=== PATIENT | female | born 1935 | race Caucasian/White ===

== ENCOUNTER → 2016-04-22 | Outpatient (CLI) | payer MEDICARE, OTHER ==
[~2016-04-22] MED LIST: ACIPHEX 20MG; ALPR.25T PO; ALPR.5T PO; ALPR0.254 PO; ASCO500T20 PO; ASP325T PO; ASP81TEC; ASP81TEC PO; ATEN25TA PO; ATN50T; ATOR40TA PO; C250T PO; CALC-676 PO; CALC-913 PO; CALCIUM 500+VI1 EACH PO; CETI10TA17 PO; CHOL2000 PO; CHOL200035 PO; CLD600T PO; CLIN300C3 PO; CLOP75TA28 PO; CLOP75TA69 PO; CLPD75T PO; CQ10 PO; DICY10CA12 PO; DILT240C PO; DILT240C96 PO; DOXA2TAB2 PO; DOXY100C2 PO; DXZS2T PO; E400C; FENO67CA PO; FISH OIL 1,2001 EAC1 PO; FISH1CAP15 PO; FOLI400T4 PO; FURO20TA4 PO; GABA600T2 PO; GBPN600T PO; HYDR200T46 PO; LACT1CAP62 PO; LOSA100T7 PO; LOSA1TAB15 PO; LOSA1TAB23 PO; LVST20T; MODA200T PO; MULT-1018 PO; NITR0.4T SL; NTR.4SL; NTR.4SL SL; OMG1KC; OS CAL PO; PANT40TA PO; PNT40TEC PO; POTA10TA36 PO; PRAV10TA PO; PRAV20TA PO; RESV100C PO; RIVA15TA PO; TADA10TA PO; TADA20TA33 PO; TURMERIC 450 MG PO; UBID100C17 PO; VIT B 12; VITA150T PO; VITD PO; ZINC PO; [UNRECOGNIZED DRUG - OTHER] PO
--- OUTSIDE RECORDS SUMMARY | 2016-04-22 12:20 | XMS REPORT | Continuity of Care Document ---
Author Author [facility] Organization [facility] Address Unknown Phone Unavailable Care Team Providers Care It Risk Analyst Name Role Phone EUGENIA DYER DO PCP Insurance Providers Payer Name Policy Number Subscriber Name Relationship Wps Medicare [id number] Mckenzie Li 18 Self / Same As Patient [facility] [id number] Mckenzie Li 18 Self / Same As Patient Advance Directives Directive Response Recorded Date/Time Advance Directives No 11/19/13 7:22am Health Care Power of Soil Fertility Specialist No 11/19/13 7:22am Organ Donor No 11/19/13 7:22am Resuscitation Status Full Code 11/19/13 7:22am Problems Medical Problems Problem Onset Date Status Cellulitis of left lower leg Unknown Active Medications Medication Dose Route Sig Days/Qty Instructions Order Date Discontinued Date Status Atenolol 12/11/07 12/10/10 Discontinued [Aciphex 20MG] 12/11/07 12/10/10 Discontinued Aspirin 12/11/07 12/10/10 Discontinued Gabapentin 600 Mg PO DAILY @ 199912/11/07 Active Calcium/Vitamin D 1 Tab PO DAILY 12/11/07 01/31/13 Discontinued Ascorbic Acid 500 Mg PO TWICE A DAY 12/11/07 01/31/13 Discontinued Fish Oil DAILY 12/11/07 04/07/11 Discontinued Vitamin E 12/11/07 12/10/10 Discontinued Alprazolam 0.25 - 0.5 Mg PO BEDTIME PRN 12/11/07 01/31/13 Discontinued Doxazosin Mesylate 2 Mg PO TWICE A DAY 12/11/07 Active [Vit B 12] DAILY 12/11/07 04/07/11 Discontinued Lovastatin DAILY 12/11/07 04/07/11 Discontinued Nitroglycerin NEEDED 12/11/07 04/07/11 Discontinued Atenolol 25 Mg PO DAILY 12/10/10 02/17/12 Discontinued Clopidogrel Bisulfate 75 Mg PO DAILY 12/10/10 Active Modafinil 200 Mg PO DAILY 12/10/10 02/17/12 Discontinued Pantoprazole Sodium 40 Mg PO DAILY 30 MIN BEFORE BREAKFAST 12/10/10 Active Aspirin 325 Mg PO DAILY 12/10/10 11/19/13 Discontinued Fish Oil/Dha/Epa 1,200 Mg PO DAILY 04/07/11 01/31/13 Discontinued Atorvastatin Calcium 40 Mg PO BEDTIME 04/07/11 01/31/13 Discontinued Folic Acid/Vitamin B Comp W-C 1 Tab PO DAILY 04/07/11 01/31/13 Discontinued Losartan/Hydrochlorothiazide 1 Tab PO DAILY 04/07/11 02/01/13 Discontinued Cholecalciferol 2,000 Unit PO DAILY 04/07/11 02/17/12 Discontinued Resveratrol 100 Mg PO DAILY 04/07/11 02/17/12 Discontinued Calcium Carbonate/Vitamin D3 1 Tab PO DAILY 04/07/11 04/12/11 Discontinued [Cq10] 100 Mg PO DAILY 04/07/11 01/31/13 Discontinued Nitroglycerin 0.4 Mg SL NEEDED FOR CHEST PAIN 04/08/11 01/31/13 Discontinued Cetirizine HCl (Zyrtec) 10 Mg PO DAILY 07/28/11 07/28/11 Discontinued Modafinil 200 Mg PO 07/28/11 07/28/11 Discontinued Cholecalciferol (Vitamin D3) 2,000 Unit PO DAILY 02/17/12 Active Resveratrol 100 Mg PO DAILY 02/17/12 02/17/12 Discontinued Cetirizine HCl (Zyrtec) 10 Mg PO DAILY 02/17/12 Active Diltiazem HCl (Cardizem Cd) 240 Mg PO DAILY@1900 02/17/12 Active Calcium Carbonate/Vitamin D3 1 Tab PO DAILY 01/31/13 Active Ascorbic Acid 500 Mg PO TWICE A DAY 01/31/13 Active Alprazolam 0.5-1 Tab PO BEDTIME TAKES 1/2 TO 1 (0.25MG) TABLET Active Ubidecarenone 100 Mg PO DAILY 01/31/13 Active [place]-3 Fatty Acids/Fish Oil 1,200 Mg PO DAILY 01/31/13 Active Vitamin B Complex & Vit C No.4 150 Mg PO DAILY 01/31/13 Active [Turmeric 450MG] 450 Mg PO DAILY 01/31/13 Active Fenofibrate (Lofibra) 67 Mg PO BEDTIME 01/31/13 Active Nitroglycerin 0 SL NEEDED 01/31/13 Active Doxycycline Hyclate (Vibramycin) 100 Mg PO TWICE A DAY 6 WEEK THERAPY FILLED 01-14-13 01/31/13 10/02/13 Discontinued Hydroxychloroquine Sulfate 200 Mg PO TWICE A DAY 01/31/13 10/02/13 Discontinued Pravastatin Sodium 10 Mg PO BEDTIME 10/02/13 Active Clindamycin HCl 1 Each PO FOUR TIMES DAILY 40 Qty 10/02/13 11/19/13 Discontinued Dicyclomine Hcl 10 Mg PO EVERY 6 HOURS PRN DIARRHEA 11/19/13 Active Aspirin 81 Mg PO DAILY 11/19/13 Active Losartan Potassium 100 Mg PO DAILY 30 Qty 11/19/13 11/19/13 Discontinued Losartan/Hydrochlorothiazide 1 Each PO DAILY 11/19/13 Active Social History Social History Problem Response Recorded Date/Time Alcohol Use Denies Use 10/02/2013 6:51pm Recreational Drug Use No 10/02/2013 6:51pm Recent Foreign Travel No 10/02/2013 6:51pm Recent Infectious Disease Exposure No 10/02/2013 6:51pm Hospitalization with Isolation Denies 10/02/2013 6:51pm Sexually Transmitted Disease No 10/02/2013 6:51pm HIV/AIDS No 10/02/2013 6:51pm Smoking Status Never a Smoker 11/19/2013 7:26am Do you dip or chew tobacco? No 11/19/2013 7:26am Query Response Start Date Stop Date Smoking Status Never a Smoker Hospital Discharge Instructions No hospital discharge instructions. Plan of Care No plan of care. Functional Status Query Response Date Recorded Patient Orientation Person Place Time Situation Normal For Age November 19, 2013 5:52pm Allergies, Adverse Reactions, Alerts Allergen Type Severity Reaction Status Last Updated Clonidine Allergy Unknown Active 12/12/07 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s Name Given Type Date of Influenza Vaccine 01/30/12 Historical Hepatitis A No Historical Hepatitis B No Historical Tetanus Booster (TDap) Unknown Historical pneumococcal polysaccharide PPV23 11/19/13 Administered Vital Signs Acute Vital Signs Vital Response Date/Time Temperature (Fahrenheit) 97.1 degrees F (97.6 - 99.5) Temperature (Calculated Celsius) 36.24588 degrees C (36.4 - 37.5) Temperature Source Tympanic Pulse Rate (adult) 64 bpm (60 - 90) Respiratory Rate 20 bpm (12 - 24) O2 Sat by Pulse Oximetry 94 % (88 - 100) Blood Pressure 138/68 mm Hg Pain Pain Intensity 0 Height (Feet) 5 feet Height (Inches) 1.00 inches Height (Calculated Centimeters) 154.149667 cm Weight (Pounds) 194 pounds Weight (Calculated Grams) 52220.921 gm Weight (Calculated Kilograms) 87.017599 kilograms Calculated BMI 36.65 Results Test Source Date Result Interp. Ref. Range Comments Activated Partial Thromboplast Time November 19, 2013 7:25am 28 SEC N 24- 35 Alanine Aminotransferase (ALT/SGPT) November 19, 2013 7:25am 12 U/L N 0- 55 Albumin November 19, 2013 7:25am 3.8 G/DL N 3.2-4.5 Alkaline Phosphatase November 19, 2013 7:25am 40 U/L N 40-136 Aspartate Amino Transf (AST/SGOT) November 19, 2013 7:25am 16 U/L N 5-34 BUN/Creatinine Ratio November 19, 2013 7:25am 18 - Basophils # (Auto) October 02, 2013 7:35pm 0.1 10^3/uL N 0.0-0.1 Basophils (%) (Auto) October 02, 2013 7:35pm 1 % N 0-10 Blood Urea Nitrogen November 19, 2013 7:25am 15 MG/DL N 7-18 Calcium Level November 19, 2013 7:25am 10.0 MG/DL N 8.5-10.1 Carbon Dioxide Level November 19, 2013 7:25am 29 MMOL/L N 21-32 Chloride Level November 19, 2013 7:25am 101 MMOL/L N 98-107 Cholesterol Level November 19, 2013 7:25am 183 MG/DL N -200 Creatine Kinase MB February 16, 2012 8:20pm 1.1 NG/ML N 0.0-3.6 Creatinine November 19, 2013 7:25am 0.85 MG/DL N 0.60-1.30 D-Dimer October 02, 2013 7:35pm 1.13 UG/ML H 0.00-0.49 Eosinophils # (Auto) October 02, 2013 7:35pm 0.1 10^3/uL N 0.0-0.3 Eosinophils (%) (Auto) October 02, 2013 7:35pm 1 % N 0-10 Erythrocyte Sedimentation Rate October 02, 2013 7:35pm 8 MM/HR N 0-30 Glucose Level November 19, 2013 7:25am 97 MG/DL N 70-105 HDL Cholesterol November 19, 2013 7:25am 69 MG/DL H 40-60 Hematocrit November 19, 2013 7:25am 41 % N 35-52 Hemoglobin November 19, 2013 7:25am 13.7 G/DL N 11.5-16.0 LDL Cholesterol July 27, 2011 9:07am 60 MG/DL N 0-129 LDL Cholesterol Direct November 19, 2013 7:25am 94 MG/DL N 1-129 Lymphocytes # (Auto) October 02, 2013 7:35pm 2.0 X 10^3 N 1.0-4.0 Lymphocytes (%) (Auto) October 02, 2013 7:35pm 24 % N 12-44 Magnesium Level April 07, 2011 8:35pm 1.8 MG/DL N 1.8-2.4 Mean Corpuscular Hemoglobin November 19, 2013 7:25am 31 PG N 25-34 Mean Corpuscular Hemoglobin Concent November 19, 2013 7:25am 34 G/DL N 32- 36 Mean Corpuscular Volume November 19, 2013 7:25am 93 FL N 80-99 Mean Platelet Volume November 19, 2013 7:25am 9.9 FL N 7.4-10.4 Monocytes # (Auto) October 02, 2013 7:35pm 0.7 X 10^3 N 0.0-1.0 Monocytes (%) (Auto) October 02, 2013 7:35pm 8 % N 0-12 Myoglobin April 07, 2011 8:35pm 45 UG/L N 10-92 Neutrophils # (Auto) October 02, 2013 7:35pm 5.4 X 10^3 N 1.8-7.8 Neutrophils (%) (Auto) October 02, 2013 7:35pm 66 % N 42-75 Platelet Count November 19, 2013 7:25am 257 10^3/uL N 130-400 Potassium Level November 19, 2013 7:25am 3.3 MMOL/L L 3.6-5.0 Prothromb Time International Ratio February 16, 2012 8:37pm 1.0 N 0.8- 1.4 INTERPRETIVE DATASUGGESTED THERAPEUTIC RANGE FOR INR'S : VENOUS THROMBOSIS, PULMONARY EMBOLISM, OR PREVENTION OF SYSTEMIC EMBOLISM (EG. IN ATRIAL FIBRILLATION): 2.0 - 3.0 MECHANICAL PROSTHETIC HEART VALVES: 2.5 - 3.5* *NOTE: INR'S UP TO 4.5 MAY BE NECESSARY IN SELECTED GROUPS OF HIGH RISK PATIENTS. [employer] CONSENSUS CONFERENCE ON ANTITHROMBOTIC THERAPY (2000). Prothrombin Time November 19, 2013 7:25am 13.1 SEC N 12.2-14.7 Red Blood Count November 19, 2013 7:25am 4.41 10^6/uL N 4.35-5.85 Red Cell Distribution Width November 19, 2013 7:25am 12.5 % N 10.0-14.5 Sodium Level November 19, 2013 7:25am 140 MMOL/L N 135-145 Thyroid Stimulating Hormone (TSH) December 12, 2007 4:25am 1.04 UIU/ML N 0.34-5.60 Total Bilirubin November 19, 2013 7:25am 0.5 MG/DL N 0.1-1.0 Total Creatine Kinase February 16, 2012 8:20pm 132 U/L N 1-159 Total Protein November 19, 2013 7:25am 7.5 G/DL N 6.4-8.2 Triglycerides Level November 19, 2013 7:25am 66 MG/DL N 0-149 Troponin I January 31, 2013 6:20pm < 0.10 NG/ML 0.00-0.10 Any elevation of troponin above the limit of the reference range is indicative of myocardial injury from any cause. Significant interval decrease or increase between elevated troponin values at 0 and 6 hours (> 20%) would, in the context of related clinical and EKG findings favor ischemic myocardial injury. VLDL Cholesterol November 19, 2013 7:25am 13 MG/DL N 5-40 White Blood Count November 19, 2013 7:25am 8.4 10^3/uL N 4.3-11.0 Lab Scanned Report February 16, 2012 9:13pm LAB Reports [id number] - Estimat Glomerular Filtration Rate November 19, 2013 7:25am > 60 - GFR INTERPRETIVE DATA UNITS FOR ESTIMATED GFR (eGFR): mL/min/1.73 M2 REFERENCE RANGE FOR ESTIMATED GFR (eGFR) eGFR NORMAL eGFR >60 MODERATELY DECREASED eGFR 30-59 SEVERLY DECREASED eGFR 15-29 KIDNEY FAILURE <15 (OR DIALYSIS) Creatine Kinase February 17, 2012 8:12am 75 U/L N 1-159 Cardiac Panel Pathologist Review February 16, 2012 8:20pm SEE CARDIAC PATH REV - INR Comment November 19, 2013 7:25am 1.0 N 0.8-1.4 INTERPRETIVE DATASUGGESTED THERAPEUTIC RANGE FOR INR'S: VENOUS THROMBOSIS, PULMONARY EMBOLISM, OR PREVENTION OF SYSTEMIC EMBOLISM (EG. IN ATRIAL FIBRILLATION): 2.0 - 3.0 MECHANICAL PROSTHETIC HEART VALVES: 2.5 - 3.5* *NOTE: INR'S UP TO 4.5 MAY BE NECESSARY IN SELECTED GROUPS OF HIGH RISK PATIENTS. [employer] [employer] CONSENSUS CONFERENCE ON ANTITHROMBOTIC THERAPY (2000). MRSA Screen Nasal December 10, 2007 10:45am MRSA not isolated Procedures Procedure Status Date Provider(s) Tracing only of electrocardiogram completed 11/19/13 NOEMI GORDON MD FACP FAC CCDS Encounters Encounter Location Date/Time Registered Clinic Via [facility] 10/28/13 9:10pm
[2016-04-22 12:42] LABS: BASOPHILS # (AUTO) 0.2 10^3/uL (0.0-0.1); BASOPHILS % (AUTO) 3 % (0-10); EOSINOPHILS % (AUTO) 0 % (0-10); LYMPHOCYTES # (AUTO) 1.6 X 10^3 (1.0-4.0); LYMPHOCYTES % (AUTO) 26 % (12-44); MEAN CORPUSCULAR HEMOGLOBIN 30 PG (25-34); MEAN CORPUSCULAR HGB CONC 33 G/DL (32-36); MEAN CORPUSCULAR VOLUME 92 FL (80-99); MEAN PLATELET VOLUME 10.6 FL (7.4-10.4); MONOCYTES # (AUTO) 0.4 X 10^3 (0.0-1.0); MONOCYTES % (AUTO) 7 % (0-12); NEUTROPHILS # (AUTO) 3.9 X 10^3 (1.8-7.8); NEUTROPHILS % (AUTO) 64 % (42-75); PLATELET COUNT 223 10^3/uL (130-400); RED BLOOD COUNT 4.66 10^6/uL (4.35-5.85); RED CELL DISTRIBUTION WIDTH 12.8 % (10.0-14.5); WHITE BLOOD COUNT 6.2 10^3/uL (4.3-11.0)
[2016-04-22 13:04] LABS: ALANINE AMINOTRANSFERASE 9 U/L (0-55); ALBUMIN 4.1 G/DL (3.2-4.5); ANION GAP 11 MMOL/L (5-14); ASPARTATE AMINO TRANSFERASE 17 U/L (5-34); BILIRUBIN,TOTAL 0.4 MG/DL (0.1-1.0); BLOOD UREA NITROGEN 20 MG/DL (7-18); BUN/CREATININE RATIO 24; CALCIUM 9.9 MG/DL (8.5-10.1); CARBON DIOXIDE 26 MMOL/L (21-32); CHLORIDE 104 MMOL/L (98-107); CREATINE KINASE 30 U/L (29-168); CREATININE SERUM 0.83 MG/DL (0.60-1.30); GFR ESTIMATED > 60; GLUCOSE 97 MG/DL (70-105); POTASSIUM 3.4 MMOL/L (3.6-5.0); SODIUM 141 MMOL/L (135-145); TOTAL PROTEIN 7.4 G/DL (6.4-8.2)
[2016-04-22 13:05] LABS: NEUTROPHILS % (MANUAL) 62 %
[2016-04-22 13:06] LABS: BAND NEUTROPHILS 0 %; BASOPHILS % (MANUAL) 1 %; EOSINOPHILS % (MANUAL) 0 %; LYMPHOCYTES % (MANUAL) 28 %
[2016-04-22 13:10] LABS: TROPONIN I < 0.30 NG/ML (<0.30)
== END ==
LOC: LAB 12:16
PROVIDERS: ATTEND Internal Medicine
DX: R07.9 Chest pain, unspecified (principal)
CPT/HCPCS: 36415; 80053; 82550; 84484; 85007; 85025; 85027

== ENCOUNTER → 2016-04-28 | Outpatient (CLI) | payer MEDICARE, OTHER ==
--- OUTSIDE RECORDS SUMMARY | 2016-04-28 11:04 | XMS REPORT | Continuity of Care Document ---
Author Author [facility] Organization [facility] Address Unknown Phone Unavailable Care Team Providers Care Real Property Evaluator Name Role Phone EUGENIA DYER DO PCP Insurance Providers Payer Name Policy Number Subscriber Name Relationship Wps Medicare [id number] Mckenzie Li 18 Self / Same As Patient [facility] [id number] Mckenzie Li 18 Self / Same As Patient Advance Directives Directive Response Recorded Date/Time Advance Directives No 11/19/13 7:22am Health Care Power of Senior Cognos Developer No 11/19/13 7:22am Organ Donor No 11/19/13 [...] Ubidecarenone 100 Mg PO DAILY 01/31/13 Active [place]-3 Fatty Acids/Fish Oil 1,200 Mg PO DAILY [...] F (97.6 - 99.5) Temperature (Calculated Celsius) 36.05166 degrees C (36.4 - 37.5) Temperature Source Tympanic Pulse Rate (adult) 64 bpm (60 - 90) Respiratory Rate 20 bpm (12 - 24) O2 Sat by Pulse Oximetry 94 % (88 - 100) Blood Pressure 138/68 mm Hg Pain Pain Intensity 0 Height (Feet) 5 feet Height (Inches) 1.00 inches Height (Calculated Centimeters) 154.900029 cm Weight (Pounds) 194 pounds Weight (Calculated Grams) 46075.921 gm Weight (Calculated Kilograms) 87.327828 kilograms Calculated BMI 36.65 Results Test Source [...] SELECTED GROUPS OF HIGH RISK PATIENTS. [employer] [place] [employer] CONSENSUS CONFERENCE ON [...] Report February 16, 2012 9:13pm LAB Reports [id number] - Estimat Glomerular Filtration Rate November 19, [...] SELECTED GROUPS OF HIGH RISK PATIENTS. [employer] [place] [employer] CONSENSUS CONFERENCE ON ANTITHROMBOTIC THERAPY (2000). MRSA Screen Nasal December 10, 2007 10:45am MRSA not isolated Procedures Procedure Status Date Provider(s) Tracing only of electrocardiogram completed 11/19/13 NOEMI GORDON MD FACP FAC CCDS Encounters Encounter Location Date/Time Registered Clinic [facility] 10/28/13 9:10pm
--- NOTE | 2016-04-28 14:59 | Diagnostic Imaging Report ---
PROCEDURE: US Thyroid. TECHNIQUE: Multiple real-time grayscale images were obtained of the thyroid in various projections. INDICATION: Goiter. COMPARISON: 09/05/2014. FINDINGS: Right thyroid lobe is 5.7 x 2.0 x 2.4 cm, previously 4.6 x 2.2 x 2.1 cm increased. Right lobe is markedly heterogeneous and contains multiple masses showing varying degrees of cystic degeneration. The largest lesion in the upper pole has predominantly cystic but few soft tissue like solid elements. It measures a long axis of 1.4 cm and previously measured 1.3 cm maximal. The enlarged left lobe measures 5.7 x 2.3 x 1.7 cm today, previously measuring 3.7 x 1.7 x 1.9 cm increased. It also contains multiple mixed solid and cystic nodules the largest of which measures 1.6 cm at the upper pole, previously 1.3 cm. IMPRESSION: Heterogeneous multinodular thyromegaly with the thyroid measuring larger than on prior; however, the largest mixed cystic and solid lesions are not appreciably changed. No new or suspicious mass apparent. Dictated by: Dictated on workstation # [id number]
--- NOTE | 2016-04-28 18:26 | Diagnostic Imaging Report ---
INDICATION: Screening for osteoporosis. EXAMINATION: DEXA scan . COMPARISON: There are no prior studies available for comparison. FINDINGS: The bone mineral density of the hips and spine was measured. The T-score for the spine is 1.3. The value is within normal limits. The T-score for each hip is -1.5. These scores fall within the range of osteopenia. 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 Dictated by: Dictated on workstation # [id number]
== END ==
LOC: RAD 11:01
PROVIDERS: ATTEND Internal Medicine
DX: E04.2 Nontoxic multinodular goiter (principal); M85.89 Other specified disorders of bone density and structure, multiple sites
CPT/HCPCS: 76536; 77080

== ENCOUNTER → 2016-05-06 | Outpatient (CLI) | payer MEDICARE, OTHER ==
[~2016-05-06] MED LIST changes: +CATHETER FLUSH 10 ML SYR IV PRN; +REGADENOSON 0.4 MG/5 ML SYR (LEXISCAN) IV ONE
--- OUTSIDE RECORDS SUMMARY | 2016-05-06 07:01 | XMS REPORT | Continuity of Care Document ---
Author Author [facility] Organization [facility] Address Unknown Phone Unavailable Care Team Providers Care Tax Form Preparer Name Role Phone EUGENIA DYER DO PCP Insurance Providers Payer Name Policy Number Subscriber Name Relationship Wps Medicare [id number] Mckenzie Li 18 Self / Same As Patient [facility] [id number] Mckenzie Li 18 Self / Same As Patient Advance Directives Directive Response Recorded Date/Time Advance Directives No 11/19/13 7:22am Health Care Power of Tie Tamper No 11/19/13 7:22am Organ Donor No 11/19/13 [...] Ubidecarenone 100 Mg PO DAILY 01/31/13 Active [place]-3 Fatty Acids/Fish Oil 1,200 Mg PO DAILY [...] F (97.6 - 99.5) Temperature (Calculated Celsius) 36.66307 degrees C (36.4 - 37.5) Temperature Source Tympanic Pulse Rate (adult) 64 bpm (60 - 90) Respiratory Rate 20 bpm (12 - 24) O2 Sat by Pulse Oximetry 94 % (88 - 100) Blood Pressure 138/68 mm Hg Pain Pain Intensity 0 Height (Feet) 5 feet Height (Inches) 1.00 inches Height (Calculated Centimeters) 154.561761 cm Weight (Pounds) 194 pounds Weight (Calculated Grams) 82731.921 gm Weight (Calculated Kilograms) 87.746132 kilograms Calculated BMI 36.65 Results Test Source [...] SELECTED GROUPS OF HIGH RISK PATIENTS. [employer] [place] [employer] CONSENSUS CONFERENCE ON [...] Report February 16, 2012 9:13pm LAB Reports [id number] - Estimat Glomerular Filtration Rate November 19, [...] SELECTED GROUPS OF HIGH RISK PATIENTS. [employer] [place] [employer] CONSENSUS CONFERENCE ON ANTITHROMBOTIC THERAPY (2000). MRSA Screen Nasal December 10, 2007 10:45am MRSA not isolated Procedures Procedure Status Date Provider(s) Tracing only of electrocardiogram completed 11/19/13 NOEMI GORDON MD FACP FAC CCDS Encounters Encounter Location Date/Time Registered Clinic [facility] 10/28/13 9:10pm
[2016-05-06 08:05] VITALS: BP 178/85
--- NOTE | 2016-05-06 19:43 | STRESS TEST ---
PROCEDURE PHYSICIAN: THIERRY ELIZABETH DATE OF PROCEDURE: 05/06/2016 NUCLEAR MYOVIEW REPORT: REFERRING PHYSICIAN: Dr. Massey IN SUMMARY: The patient was injected with 10.63 mCi of technetium 99 Myoview and the resting images were obtained. Then with peak stress level, the patient was injected with 31.4 mCi of technetium 99 Myoview. The test was supervised by Dr. Massey. The resting and stress images were reviewed and compared in the short axis, horizontal long axis, and vertical long axis views. Review of the images showed breast attenuation affecting the quality of the images with mild ischemia involving the basal to mid anterior wall and anterolateral wall. SSS is 7, SDS 7, TID value is 0.95. On the gated images, the left ventricle appeared to be normal size with hyperactive contractility. Calculated ejection fraction 89%. IN CONCLUSION: 1. Breast attenuation affecting the quality of the images with mild ischemia involving the mid to apical anterior wall and anterolateral wall. 2. Normal left ventricular size with hyperactive ventricle. Calculated ejection fraction 89%. Job ID: [id number] Dictated Date: 05/06/2016 10:03:57 Pharmacist Manager Date: 05/06/2016 19:40:22 / rubi
== END ==
LOC: CARD 06:58
PROVIDERS: ATTEND Internal Medicine
DX: I25.10 Atherosclerotic heart disease of native coronary artery without angina pectoris (principal); R07.9 Chest pain, unspecified
CPT/HCPCS: 78452; 93017

== ENCOUNTER → 2016-10-05 | Outpatient (CLI) | payer MEDICARE, OTHER ==
[~2016-10-05] MED LIST changes: -CATHETER FLUSH 10 ML SYR IV PRN; -REGADENOSON 0.4 MG/5 ML SYR (LEXISCAN) IV ONE
--- NOTE | 2016-10-05 14:32 | Diagnostic Imaging Report ---
EXAMINATION: Bilateral renal ultrasound. INDICATION: Left renal cyst. FINDINGS: The right kidney is 12 and the left kidney is 16.4 cm in length. There is no hydronephrosis. There is a 2.2 cm simple appearing cyst in the lower aspect of the right kidney. The left kidney demonstrates multiple simple appearing cysts with a dominant large exophytic simple cyst from the lower pole of the left kidney measuring 9.5 cm in size. The urinary bladder appears unremarkable. IMPRESSION: Bilateral simple renal cysts. Dictated by: Dictated on workstation # [id number]
== END ==
LOC: RAD 12:46
PROVIDERS: ATTEND Internal Medicine
DX: N28.1 Cyst of kidney, acquired (principal)
CPT/HCPCS: 76770

== ENCOUNTER → 2016-11-10 | Outpatient (CLI) | payer MEDICARE, OTHER ==
--- NOTE | 2016-11-10 19:05 | Diagnostic Imaging Report ---
Three views of the left knee. INDICATION: Trauma. 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 Density in the suprapatellar region is seen suggestive of a small effusion. No fracture is seen. No evidence of loosening. IMPRESSION: Suprapatellar density may relate to a small effusion. Dictated by: Dictated on workstation # [id number]
== END ==
LOC: RAD 12:36
PROVIDERS: ATTEND Internal Medicine
DX: S89.92XA Unspecified injury of left lower leg, initial encounter (principal); Z96.652 Presence of left artificial knee joint; X58.XXXA Exposure to other specified factors, initial encounter; Y99.8 Other external cause status
CPT/HCPCS: 73562

== ENCOUNTER 2016-12-30 09:48 | Outpatient (RCR) | payer MEDICARE, OTHER | END 2016-12-31 | disposition home or self-care (01) | PROVIDERS: ATTEND Internal Medicine | DX: M48.06 Spinal stenosis, lumbar region (principal) ==

== ENCOUNTER 2017-02-27 07:02 | Emergency (ER) | payer MEDICARE, OTHER ==
[~2017-02-27] VITALS: Ht 152.4 cm; Wt 79.4 kg
[2017-02-27] MEDS ORDERED: ORPHENADRINE 60 MG/2 ML (NORFLEX) AMP IV ONE (08:00)
[2017-02-27] MEDS ORDERED: KETOROLAC 30 MG/ML VIAL IVP ONE (08:00)
--- NOTE | 2017-02-27 08:13 | ED Back Pain ---
General Chief Complaint: Back Problems Stated Complaint: LEFT UPPER BACK PAIN Nursing Triage Note: c/o upper back pain. Onset 0130 this morning. Denies chest pain, SOA, diaphoresis, fever/chills or radiation of pain. Nursing Sepsis Screen: No Definite Risk Source of Information: Patient, Old Records Exam Limitations: No Limitations History of Present Illness Time Seen by Provider: 07:20 Initial Comments This pleasant 82-year-old woman presents to the emergency room with complaints of pain in the left mid back since about 01:30. She took Tylenol and used a heating pad which helped a little bit. She has no exacerbating or alleviating factors and denies any other associated symptoms such as shortness of breath, cough, lightheadedness, chest pain, nausea, etc. She couldn't sleep due to the pain and is concerned that this may be related to heart disease. Allergies and Home Medications Allergies Coded Allergies: clonidine (Verified Allergy, Unknown, 12/12/07) Home Medications Alprazolam 0.25 Mg Tablet, 0.125-0.25 MG PO HS, (Reported) TAKES 1/2 TO 1 (0.25MG) TABLET Aspirin 81 Mg Tabec, 81 MG PO HS, (Reported) Calcium Carbonate/Vitamin D3 1 Each Tablet, 1 EACH PO DAILY, (Reported) Cetirizine Hcl 10 Mg Tablet, 10 MG PO DAILY PRN for ALLERGIES, (Reported) Clopidogrel Bisulfate 75 Mg Tablet, 75 MG PO DAILY, (Reported) Diltiazem Hcl 240 Mg Cap.er.24h, 240 MG PO HS, (Reported) Doxazosin Mesylate 2 Mg Tablet, 2 MG PO BID, (Reported) Fenofibrate,Micronized 67 Mg Capsule, 67 MG PO HS, (Reported) Furosemide 20 Mg Tablet, 20 MG PO EVERY OTHER DAY, (Reported) Lactobacillus Acidophilus 1 Each Capsule, 1 CAP PO DAILY, (Reported) Losartan/Hydrochlorothiazide 1 Each Tablet, 1 TAB PO DAILY, (Reported) Multivits-Min/Folic Acid/Biot 1 Each Tablet, 1 TAB PO DAILY, (Reported) Nitroglycerin 0.4 Mg Tab.subl, 0.4 MG SL EVERY 5 MIN PRN for CHEST PAIN, ( Reported) [place]-3 Fatty Acids/Fish Oil 1 Each Capsule, 1,200 MG PO DAILY, (Reported) Pantoprazole Sodium 40 Mg Tablet.dr, 40 MG PO DAILY, (Reported) Potassium Chloride 10 Meq Tab.prt.sr, 10 MEQ PO EVERY OTHER DAY, (Reported) Pravastatin Sodium 10 Mg Tablet, 10 MG PO HS, (Reported) Ubidecarenone 100 Mg Capsule, 100 MG PO DAILY, (Reported) Vitamin B Complex & Vit C No.4 150 Mg Tablet, 150 MG PO DAILY, (Reported) [Turmeric 450MG] , 450 MG PO DAILY, (Reported) [Vitd+Cw/Zinc] , 1 TAB PO BID, (Reported) VIT D3 1000I.U. VIT C 500MG ZINC 15MG Constitutional: no symptoms reported EENTM: no symptoms reported Respiratory: no symptoms reported Cardiovascular: see HPI Gastrointestinal: no symptoms reported Genitourinary: no symptoms reported : No Musculoskeletal: see HPI, other (chronic problems with arthritis and spinal stenosis) Skin: no symptoms reported Psychiatric/Neurological: No Symptoms Reported Past Cerwrrs-Hilgoc-Ipjlol Hx Patient Social History Alcohol Use: Denies Use Recreational Drug Use: No Smoking Status: Never a Smoker Recent Foreign Travel: No Contact w/Someone Who Travel: No Recent Infectious Disease Expo: No Recent Hopitalizations: No 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s Up To Date Tetanus Booster (TDap): Unknown Date of Influenza Vaccine: Jan 30, 2012 Seasonal Allergies Seasonal Allergies: Yes Surgeries History of Surgeries: Yes (BI LAT KNEES, HEART STINT, BI LAT CARPAL TUNNEL) Surgeries: Coronary Stent, Gallbladder, Hysterectomy, Orthopedic Respiratory History of Respiratory Disorde: Yes (pulmonary hypertension) Respiratory Disorders: Sleep Apnea Cardiovascular History of Cardiac Disorders: Yes (pulmonary hypertension) Cardiac Disorders: Coronary Artery Disease, High Cholesterol, Hypertension Neurological History of Neurological Disord: No Reproductive System Hx Reproductive Disorders: No Sexually Transmitted Disease: No HIV/AIDS: No 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 Genitourinary Genitourinary Disorders: UTI-Chronic Gastrointestinal History of Gastrointestinal Di: Yes Gastrointestinal Disorders: Gastroesophageal Reflux, Gall Bladder Disease Musculoskeletal History of Musculoskeletal Dis: Yes (SPIINAL STENOSIS) Musculoskeletal Disorders: Arthritis Endocrine History of Endocrine Disorders: No HEENT HEENT Disorders: Cataract Loss of Vision: Denies Hearing Impairment: Denies Cancer History of Cancer: No Psychosocial History of Psychiatric Problem: No Integumentary History of Skin or Integumenta: No Skin/Integumentary Disorders: Recent Skin Changes Blood Transfusions History of Blood Disorders: No Family Medical History Family Medial History: Cardiovascular disease 19 MOTHER Hypertension 19 FATHER Physical Exam Vital Signs Vital Sign - Last 12Hours 02/27/17 07:26 Temp 97.4 Pulse 70 Resp 16 B/P (MAP) 203/89 Pulse Ox 98 O2 Delivery Room Air Capillary Refill : Less Than 3 Seconds General Appearance: No Apparent Distress, WD/WN HEENT: Normal ENT Inspection Neck: Normal Inspection Cardiovascular: Regular Rate, Rhythm, No Edema, No Murmur Respiratory: Lungs Clear, Normal Breath Sounds, No Accessory Muscle Use, No Respiratory Distress Gastrointestinal: Normal Bowel Sounds, Non Tender, Soft Back: Normal Inspection, Other (mildly tense and tender paraspinous muscle in the left mid back) Extremity: Normal Inspection, Non Tender, No Calf Tenderness, No Pedal Edema Neurologic/Psychiatric: Alert, Oriented x3, No Motor/Sensory Deficits, Normal Mood/Affect, 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 float II-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 Norm as Tested, Abnormal Cerebellar Tests Progress/Results/Core Measures Results/Orders Lab Results Laboratory Tests Test 02/27/17 07:50 Range/Units Troponin I < 0.30 <0.30 NG/ML My Orders Orders - KIMMY CULP MD Troponin I (02/27/17 07:30) Saline Lock/Iv-Start (02/27/17 07:30) Ekg Tracing (02/27/17 07:30) Monitor-Rhythm Ecg Trace Only (02/27/17 07:30) Ketorolac Injection (Toradol Injection) (02/27/17 08:00) Orphenadrine Injection (Norflex Injectio (02/27/17 08:00) Medications Given in ED Current Medications Medications Dose Ordered Sig/Ramón Route Start Time Stop Time Status Last Admin Dose Admin Ketorolac Tromethamine 15 mg ONCE ONCE IVP 02/27/17 08:00 02/27/17 08:01 DC 02/27/17 08:02 15 MG Orphenadrine Citrate 15 mg ONCE ONCE IV 02/27/17 08:00 02/27/17 08:01 DC 02/27/17 08:01 15 MG Vital Signs/I&O Vital Sign - Last 12Hours 02/27/17 02/27/17 07:26 08:02 Temp 97.4 97.4 Pulse 70 Resp 16 B/P (MAP) 203/89 Pulse Ox 98 O2 Delivery Room Air Blood Pressure Mean: 127 Progress Note #1: Time: 08:16 Progress Note Patient was examined. The pain was felt to be related to musculoskeletal etiology. She had a tense tender muscle in the region of her pain. However, she is significantly anxious about her coronary artery disease and would like her heart evaluated further. A troponin and EKG have been ordered. EKG was unremarkable. Toradol and Norflex have been given for the pain. Progress Note #2: Time: 08:47 Progress Note Troponin and EKG were unremarkable. Patient had moderate improvement in pain and rated as 5/10 at the time of dismissal. ECG Initial ECG Impression Date: Feb 27, 2017 Initial ECG Impression Time: 07:37 Initial ECG Rate: 63 Initial ECG Rhythm: Normal Sinus Initial ECG Intervals: Normal Initial ECG Impression: Normal Comment Normal sinus rhythm with no ST elevation or depression. No abnormal intervals or axis deviation. Departure Impression Impression: Primary Impression: Mid back pain on left side Additional Impression: Coronary artery disease Qualified Codes: I25.10 - Atherosclerotic heart disease of [place] coronary artery without angina pectoris Disposition: HOME, SELF-CARE Condition: Improved Departure-Patient Inst. Decision time for Depature: 08:48 Referrals: EUGENIA DYER DO (PCP/Family) Primary Care Physician Patient Instructions: Upper Back Pain (DC) Add. Discharge Instructions: You may use your previously prescribed pain medication. Gentle heat may be helpful. If you choose to use ibuprofen, use it sparingly and use no more than 400 mg 3 times daily. Take with food or milk to avoid irritating your stomach. If pain is not improving, follow-up with your primary care provider. If symptoms worsen, return to the emergency room. All discharge instructions reviewed with patient and/or family. Voiced understanding. Scripts Cyclobenzaprine HCl (Cyclobenzaprine HCl) 5 Mg Tablet 5 MG PO TID Y for SPASMS, #10 TAB Prov: KIMMY CULP MD 02/27/17 KIMMY CULP MD Feb 27, 2017 08:12
[2017-02-27] MEDS ORDERED: CYCL5TAB PO (08:52)
[2017-02-27 09:07] VITALS: BP 190/86
== END 2017-02-27 09:07 | disposition home or self-care (01) ==
LOC: EDUNIT# 07:02 → ER 07:04
DX: M54.6 Pain in thoracic spine (principal); I25.10 Atherosclerotic heart disease of native coronary artery without angina pectoris; E78.00 Pure hypercholesterolemia, unspecified; I10 Essential (primary) hypertension; G47.30 Sleep apnea, unspecified; K21.9 Gastro-esophageal reflux disease without esophagitis; Z95.5 Presence of coronary angioplasty implant and graft; Z90.710 Acquired absence of both cervix and uterus; Z79.4 Long term (current) use of insulin
CPT/HCPCS: 36415; 84484; 93005; 93041; 96374; 96375

== ENCOUNTER 2017-02-28 07:50 | Emergency (ER) | payer MEDICARE, OTHER ==
[~2017-02-28] VITALS: Ht 152.4 cm; Wt 77.6 kg
[2017-02-28] MEDS ORDERED: ASPIRIN 81 MG CHEW (CHILDREN'S ASA) PO ONE (08:15)
[2017-02-28 08:25] LABS: BASOPHILS # (AUTO) 0.1 10^3/uL (0.0-0.1); BASOPHILS % (AUTO) 2 % (0-10); EOSINOPHILS # (AUTO) 0.1 10^3/uL (0.0-0.3); EOSINOPHILS % (AUTO) 2 % (0-10); LYMPHOCYTES # (AUTO) 1.8 X 10^3 (1.0-4.0); LYMPHOCYTES % (AUTO) 31 % (12-44); MEAN CORPUSCULAR HEMOGLOBIN 31 PG (25-34); MEAN CORPUSCULAR HGB CONC 33 G/DL (32-36); MEAN CORPUSCULAR VOLUME 93 FL (80-99); MEAN PLATELET VOLUME 10.6 FL (7.4-10.4); MONOCYTES # (AUTO) 0.5 X 10^3 (0.0-1.0); MONOCYTES % (AUTO) 9 % (0-12); NEUTROPHILS # (AUTO) 3.2 X 10^3 (1.8-7.8); NEUTROPHILS % (AUTO) 56 % (42-75); PLATELET COUNT 204 10^3/uL (130-400); RED BLOOD COUNT 4.59 10^6/uL (4.35-5.85); RED CELL DISTRIBUTION WIDTH 12.3 % (10.0-14.5); WHITE BLOOD COUNT 5.8 10^3/uL (4.3-11.0)
[2017-02-28] MEDS: NITROGLYCERIN 0.4 MG SL TABS BTL 25'S SL PRN ×3 (08:28→08:55)
--- NOTE | 2017-02-28 08:32 | ED Chest Pain ---
General Chief Complaint: Chest Pain Stated Complaint: BACK PAIN RADIATING TO THE CHEST Nursing Triage Note: ARRIVED VIA AMB TO ROOM 05. WAS SEEN YESTERDAY. COMPLAINS OF BACK PAIN THAT RAIDIATES INTO CHEST. Nursing Sepsis Screen: No Definite Risk Source: patient, old records Exam Limitations: no limitations History of Present Illness Time seen by provider: 08:07 Initial Comments This 82-year-old woman presents to the emergency room with complaints of left mid back pain which has been present for a few days. She was seen for this pain yesterday as well. She was concerned at that time that the back pain may be related to a cardiac cause. A troponin and EKG were performed which were both negative. Patient's pain improved with Toradol and Norflex and she was dismissed home. Pain was also successfully treated later in the evening with ibuprofen at home. Pain rebounded again at 03:00 and this time also involved the left anterior chest. She denies any exacerbating or alleviating factors. She took an additional 200 mg of ibuprofen at onset of the chest pain. This did not help. She says sometimes applying pressure with her hand to the chest wall helps the pain. She had a cardiac catheterization performed in 2014 showing mild nonobstructive coronary artery disease. Patient has significant arthritic and spinal stenosis pain issues. I did talk with the patient on the phone this morning prior to her departure for the ER. I had advised her to take cyclobenzaprine as prescribed yesterday along with her hydrocodone. She did not take either of these medications. She is also notably hypertensive on arrival but she has not yet taken her morning medications. Allergies and Home Medications Allergies Coded Allergies: clonidine (Verified Allergy, Unknown, 12/12/07) Home Medications Alprazolam 0.25 Mg Tablet, 0.125-0.25 MG PO HS, (Reported) TAKES 1/2 TO 1 (0.25MG) TABLET Aspirin 81 Mg Tabec, 81 MG PO HS, (Reported) Calcium Carbonate/Vitamin D3 1 Each Tablet, 1 EACH PO DAILY, (Reported) Cetirizine Hcl 10 Mg Tablet, 10 MG PO DAILY PRN for ALLERGIES, (Reported) Clopidogrel Bisulfate 75 Mg Tablet, 75 MG PO DAILY, (Reported) Cyclobenzaprine HCl 5 Mg Tablet, 5 MG PO TID PRN for SPASMS, #10 Prescribed by: KIMMY BARNHART on 02/27/17 0852 Diltiazem Hcl 240 Mg Cap.er.24h, 240 MG PO HS, (Reported) Doxazosin Mesylate 2 Mg Tablet, 2 MG PO BID, (Reported) Fenofibrate,Micronized 67 Mg Capsule, 67 MG PO HS, (Reported) Furosemide 20 Mg Tablet, 20 MG PO EVERY OTHER DAY, (Reported) Lactobacillus Acidophilus 1 Each Capsule, 1 CAP PO DAILY, (Reported) Losartan/Hydrochlorothiazide 1 Each Tablet, 1 TAB PO DAILY, (Reported) Multivits-Min/Folic Acid/Biot 1 Each Tablet, 1 TAB PO DAILY, (Reported) Nitroglycerin 0.4 Mg Tab.subl, 0.4 MG SL EVERY 5 MIN PRN for CHEST PAIN, ( Reported) [place]-3 Fatty Acids/Fish Oil 1 Each Capsule, 1,200 MG PO DAILY, (Reported) Pantoprazole Sodium 40 Mg Tablet.dr, 40 MG PO DAILY, (Reported) Potassium Chloride 10 Meq Tab.prt.sr, 10 MEQ PO EVERY OTHER DAY, (Reported) Pravastatin Sodium 10 Mg Tablet, 10 MG PO HS, (Reported) Ubidecarenone 100 Mg Capsule, 100 MG PO DAILY, (Reported) Vitamin B Complex & Vit C No.4 150 Mg Tablet, 150 MG PO DAILY, (Reported) [Turmeric 450MG] , 450 MG PO DAILY, (Reported) [Vitd+Cw/Zinc] , 1 TAB PO BID, (Reported) VIT D3 1000I.U. VIT C 500MG ZINC 15MG Review of Systems Constitutional: no symptoms reported EENTM: No Symptoms Reported Respiratory: No Symptoms Reported Cardiovascular: See HPI Gastrointestinal: No Symptoms Reported Genitourinary: No Symptoms Reported Musculoskeletal: see HPI Skin: no symptoms reported Psychiatric/Neurological: No Symptoms Reported Endocrine: No Symptoms Reported Past Ixsgrpk-Ixqrxw-Yhuvoy Hx Patient Social History Alcohol Use: Denies Use Recreational Drug Use: No Smoking Status: Never a Smoker Recent Foreign Travel: No Contact w/Someone Who Travel: No Recent Infectious Disease Expo: No Recent Hopitalizations: No 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s Up To Date Tetanus Booster (TDap): Unknown Date of Influenza Vaccine: Jan 30, 2012 Seasonal Allergies Seasonal Allergies: Yes Surgeries History of Surgeries: Yes (BI LAT KNEES, HEART STINT, BI LAT CARPAL TUNNEL) Surgeries: Coronary Stent, Gallbladder, Hysterectomy, Orthopedic Respiratory History of Respiratory Disorde: Yes (pulmonary hypertension) Respiratory Disorders: Sleep Apnea Cardiovascular History of Cardiac Disorders: Yes (pulmonary hypertension) Cardiac Disorders: Coronary Artery Disease, High Cholesterol, Hypertension Neurological History of Neurological Disord: No Reproductive System Hx Reproductive Disorders: No Sexually Transmitted Disease: No HIV/AIDS: No Female 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 Genitourinary Genitourinary Disorders: UTI-Chronic Gastrointestinal History of Gastrointestinal Di: Yes Gastrointestinal Disorders: Gastroesophageal Reflux, Gall Bladder Disease Musculoskeletal History of Musculoskeletal Dis: Yes (SPIINAL STENOSIS) Musculoskeletal Disorders: Arthritis Endocrine History of Endocrine Disorders: No HEENT HEENT Disorders: Cataract Loss of Vision: Denies Hearing Impairment: Denies Cancer History of Cancer: No Psychosocial History of Psychiatric Problem: No Integumentary History of Skin or Integumenta: No Skin/Integumentary Disorders: Recent Skin Changes Blood Transfusions History of Blood Disorders: No Family Medical History Family Medial History: Cardiovascular disease 19 MOTHER Hypertension 19 FATHER Physical Exam Vital Signs Vital Sign - Last 12Hours 02/28/17 07:50 Temp 96.2 Pulse 66 Resp 18 B/P (MAP) 220/91 Pulse Ox 97 O2 Delivery Room Air Capillary Refill : Less Than 3 Seconds General Appearance: No Apparent Distress, WD/WN, Anxious (mildly) HEENT: Normal ENT Inspection Neck: Normal Inspection Respiratory: Chest Non Tender, Lungs Clear, Normal Breath Sounds, No Accessory Muscle Use, No Respiratory Distress Cardiovascular: Regular Rate, Rhythm, No Edema, No Murmur Gastrointestinal: Non Tender, Soft Extremity: Normal Inspection, Non Tender, No Calf Tenderness, No Pedal Edema, Other (negative Nitza. 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 Norm as Tested Skin: Normal Color, Warm/Dry Progress/Results/Core Measures Results/Orders Lab Results Laboratory Tests Test 02/28/17 08:18 02/28/17 10:01 Range/Units White Blood Count 5.8 4.3-11.0 10^3/uL Red Blood Count 4.59 4.35-5.85 10^6/uL Hemoglobin 14.1 11.5-16.0 G/DL Hematocrit 43 35-52 % Mean Corpuscular Volume 93 80-99 FL Mean Corpuscular Hemoglobin 31 25-34 PG Mean Corpuscular Hemoglobin Concent 33 32-36 G/DL Red Cell Distribution Width 12.3 10.0-14.5 % Platelet Count 204 130-400 10^3/uL Mean Platelet Volume 10.6 H 7.4-10.4 FL Neutrophils (%) (Auto) 56 42-75 % Lymphocytes (%) (Auto) 31 12-44 % Monocytes (%) (Auto) 9 0-12 % Eosinophils (%) (Auto) 2 0-10 % Basophils (%) (Auto) 2 0-10 % Neutrophils # (Auto) 3.2 1.8-7.8 X 10^3 Lymphocytes # (Auto) 1.8 1.0-4.0 X 10^3 Monocytes # (Auto) 0.5 0.0-1.0 X 10^3 Eosinophils # (Auto) 0.1 0.0-0.3 10^3/uL Basophils # (Auto) 0.1 0.0-0.1 10^3/uL Prothrombin Time 12.1 L 12.2-14.7 SEC INR Comment 0.9 0.8-1.4 Activated Partial Thromboplast Time 28 24-35 SEC Sodium Level 143 135-145 MMOL/L Potassium Level 3.9 3.6-5.0 MMOL/L Chloride Level 103 98-107 MMOL/L Carbon Dioxide Level 31 21-32 MMOL/L Anion Gap 9 5-14 MMOL/L Blood Urea Nitrogen 12 7-18 MG/DL Creatinine 0.81 0.60-1.30 MG/DL Estimat Glomerular Filtration Rate > 60 BUN/Creatinine Ratio 15 Glucose Level 101 70-105 MG/DL Calcium Level 10.1 8.5-10.1 MG/DL Magnesium Level 1.8 1.8-2.4 MG/DL Total Bilirubin 0.4 0.1-1.0 MG/DL Aspartate Amino Transf (AST/SGOT) 20 5-34 U/L Alanine Aminotransferase (ALT/SGPT) 12 0-55 U/L Alkaline Phosphatase 44 40-136 U/L Myoglobin 52.8 10.0-92.0 NG/ML Troponin I < 0.30 < 0.30 <0.30 NG/ML B-Type Natriuretic Peptide 170.5 H <100.0 PG/ML Total Protein 7.5 6.4-8.2 GM/DL Albumin 4.1 3.2-4.5 GM/DL My Orders Orders - KIMMY CULP MD Ekg Tracing (02/28/17 07:56) Cbc With Automated Diff (02/28/17 08:11) Magnesium (02/28/17 08:11) Chest 1 View, Ap/Pa Only (02/28/17 08:11) Cardiac Profile 1 (02/28/17 08:11) Comprehensive Metabolic Panel (02/28/17 08:11) Myoglobin Serum (02/28/17 08:11) Protime With Inr (02/28/17 08:11) Partial Thromboplastin Time (02/28/17 08:11) O2 (02/28/17 08:11) Monitor-Rhythm Ecg Trace Only (02/28/17 08:11) Aspirin Chewable Tablet (Baby Aspirin Ch (02/28/17 08:15) Nitroglycerin 0.4 Mg Btl 25's (Nitrostat (02/28/17 08:15) Saline Lock/Iv-Start (02/28/17 08:11) BNP (02/28/17 08:15) Ketorolac Injection (Toradol Injection) (02/28/17 09:00) Troponin I (02/28/17 09:48) Orphenadrine Injection (Norflex Injectio (02/28/17 10:15) Medications Given in ED Current Medications Medications Dose Ordered Sig/Ramón Route Start Time Stop Time Status Last Admin Dose Admin Aspirin 324 mg ONCE ONCE PO 02/28/17 08:15 02/28/17 08:16 DC 02/28/17 08:28 324 MG Ketorolac Tromethamine 15 mg ONCE ONCE IVP 02/28/17 09:00 02/28/17 09:01 DC 02/28/17 09:12 15 MG Nitroglycerin 0.4 mg UD PRN SL 02/28/17 08:15 02/28/17 08:56 DC 02/28/17 08:55 0.4 MG Orphenadrine Citrate 30 mg ONCE ONCE IV 02/28/17 10:15 02/28/17 10:16 DC 02/28/17 10:24 30 MG Vital Signs/I&O Vital Sign - Last 12Hours 02/28/17 02/28/17 07:50 11:00 Temp 96.2 Pulse 66 67 Resp 18 18 B/P (MAP) 220/91 Pulse Ox 97 97 O2 Delivery Room Air Room Air Blood Pressure Mean: 134 Progress Note #1: Time: 08:30 Progress Note EKG was unremarkable. Patient is receiving aspirin and nitroglycerin. Systolic blood pressures greater than 200. Patient has not yet taken her morning medications. She presents her medications and a pill organizer. Pill identifiers were confirmed and she was instructed to take her morning meds. Progress Note #2: Time: 09:47 Progress Note Patient's pain in the chest did improve after 3 nitroglycerin. She still had 7/ 10 pain in the back. Toradol has been administered. Workup was unremarkable except for minimal elevation in BNP. Etiology of her pain is uncertain but may have been related to hypertension. Case was reviewed with Dr. Maurer who is very familiar with the patient. He requests a second troponin and follow-up in the clinic if that is normal. Progress Note #3: Time: 10:50 Progress Note Repeat troponin was negative. Patient's pain continues to gradually decrease after Norflex was administered. She will be discharged home to outpatient follow-up. ECG Initial ECG Impression Date: Feb 28, 2017 Initial ECG Impression Time: 07:56 Initial ECG Rate: 66 Initial ECG Rhythm: Normal Sinus Initial ECG Intervals: Normal Initial ECG Impression: Normal Comment Normal sinus rhythm with no ST elevation or depression. No abnormal intervals or axis deviation. Diagnostic Imaging Diagonstic Imaging: Xray Plain Films/CT/US/NM/MRI: chest Comments NAME: [facility] REC#: [id number] PT STATUS: REG ER : 1935 PHYSICIAN: KIMMY CULP MD ADMIT DATE: 02/28/17/ER Signed Date of Exam: 02/28/17 CHEST 1 VIEW, AP/PA ONLY INDICATION: Back pain. Exam compared to10/28/2015. FINDINGS: This chronic air trapping. There is trace linear left midlung scarring chronic. No focal infiltrate, effusion, pneumothorax or failure pattern. IMPRESSION: Stable chronic findings. Dictated by: Dictated on workstation # [id number] Dict: 02/28/17 0857 Trans: 02/28/17 1056 Interpreted by: NASSAR,JOSUE D Electronically signed by: JOSUE NASSAR 02/28/17 1056 Departure Impression Impression: Primary Impression: Chest pain Qualified Codes: R07.9 - Chest pain, unspecified Additional Impressions: Midline back pain Qualified Codes: M54.6 - Pain in thoracic spine Hypertensive urgency Disposition: 01 HOME, SELF-CARE Condition: Improved Departure-Patient Inst. Decision time for Depature: 10:51 Referrals: EUGENIA MASSEY DO (PCP/Family) Primary Care Physician Patient Instructions: Chest Pain (DC) Add. Discharge Instructions: Call Dr. Maurer's office for a follow-up appointment. He would like to see you in the office tomorrow. Contacted Dr. Massey's office for follow-up appointment as soon as possible. Take one half to one full tablet of hydrocodone for primary pain management. You may take cyclobenzaprine (Flexeril ) as prescribed for muscle spasms. You may take ibuprofen up to 400 mg 3 times daily sparingly for additional pain relief if needed. Take ibuprofen with food or milk to prevent stomach irritation. Return to the ER if symptoms worsen. Gentle heat on your back may also help your muscles relax. All discharge instructions reviewed with patient and/or family. Voiced understanding. Copy Copies To 1: EUGENIA AMSSEY DO Copies To 2: NOEMI MAURER MD FACP [facility] KIMMY CULP MD Feb 28, 2017 08:32
[2017-02-28 08:40] LABS: INR 0.9 (0.8-1.4); PROTHROMBIN TIME PATIENT 12.1 SEC (12.2-14.7)
[2017-02-28 08:47] LABS: ALANINE AMINOTRANSFERASE 12 U/L (0-55); ALBUMIN 4.1 GM/DL (3.2-4.5); ANION GAP 9 MMOL/L (5-14); ASPARTATE AMINO TRANSFERASE 20 U/L (5-34); BILIRUBIN,TOTAL 0.4 MG/DL (0.1-1.0); BLOOD UREA NITROGEN 12 MG/DL (7-18); BUN/CREATININE RATIO 15; CALCIUM 10.1 MG/DL (8.5-10.1); CARBON DIOXIDE 31 MMOL/L (21-32); CHLORIDE 103 MMOL/L (98-107); CREATININE SERUM 0.81 MG/DL (0.60-1.30); GFR ESTIMATED > 60; GLUCOSE 101 MG/DL (70-105); MAGNESIUM 1.8 MG/DL (1.8-2.4); POTASSIUM 3.9 MMOL/L (3.6-5.0); SODIUM 143 MMOL/L (135-145); TOTAL PROTEIN 7.5 GM/DL (6.4-8.2)
[2017-02-28 08:52] LABS: MYOGLOBIN SERUM 52.8 NG/ML (10.0-92.0)
[2017-02-28] MEDS ORDERED: KETOROLAC 30 MG/ML VIAL IVP ONE (09:00)
--- NOTE | 2017-02-28 09:14 | Diagnostic Imaging Report ---
INDICATION: Back pain. Exam compared to10/28/2015. FINDINGS: This chronic air trapping. There is trace linear left midlung scarring chronic. No focal infiltrate, effusion, pneumothorax or failure pattern. IMPRESSION: Stable chronic findings. Dictated by: Dictated on workstation # [id number]
[2017-02-28] MEDS ORDERED: ORPHENADRINE 60 MG/2 ML (NORFLEX) AMP IV ONE (10:15)
[2017-02-28 11:00] VITALS: BP 152/76
== END 2017-02-28 11:00 | disposition home or self-care (01) ==
LOC: EDUNIT# 07:50 → ER 07:52
DX: M54.6 Pain in thoracic spine (principal); I16.0 Hypertensive urgency; R07.9 Chest pain, unspecified; K21.9 Gastro-esophageal reflux disease without esophagitis; I25.10 Atherosclerotic heart disease of native coronary artery without angina pectoris; E78.00 Pure hypercholesterolemia, unspecified; I10 Essential (primary) hypertension; G47.30 Sleep apnea, unspecified; Z90.710 Acquired absence of both cervix and uterus; Z95.5 Presence of coronary angioplasty implant and graft; Z79.82 Long term (current) use of aspirin
CPT/HCPCS: 36415; 71010; 80053; 83735; 83874; 83880; 84484; 85025; 85610; 85730; 93005; 93041

== ENCOUNTER → 2017-02-28 | Outpatient (CLI) | payer MEDICARE, OTHER ==
[~2017-02-28] MED LIST changes: +CYCL5TAB PO
--- NOTE | 2017-02-28 11:59 | Diagnostic Imaging Report ---
PROCEDURE: CT head without contrast. TECHNIQUE: Multiple contiguous axial images were obtained through the brain without the use of intravenous contrast. INDICATION: Mental status change. FINDINGS: There is no intracranial hemorrhage, edema or mass effect. The brain parenchyma demonstrates periventricular and deep white matter hypodensities compatible with chronic microvascular ischemic changes. No hydrocephalus. No extra-axial fluid collection is seen. The calvarium, and orbits appear unremarkable. The right frontal sinus and the anterior and mid right ethmoidal air cells are opacified. IMPRESSION: 1. No acute intracranial process. 2. Opacification of the right ethmoidal and frontal sinuses, could correlate with sinusitis. Dictated by: Dictated on workstation # [id number]
== END ==
LOC: RAD 11:25
PROVIDERS: ATTEND Internal Medicine
DX: J34.89 Other specified disorders of nose and nasal sinuses (principal); R41.82 Altered mental status, unspecified
CPT/HCPCS: 70450

== ENCOUNTER 2017-03-29 12:57 | Outpatient (RCR) | payer MEDICARE, OTHER | END 2017-04-03 | disposition home or self-care (01) | PROVIDERS: ATTEND Internal Medicine | DX: M48.061 Spinal stenosis, lumbar region without neurogenic claudication (principal) ==

== ENCOUNTER 2017-04-28 10:08 | Outpatient (RCR) | payer MEDICARE, OTHER | END 2017-04-28 12:12 | disposition home or self-care (01) | PROVIDERS: ATTEND Internal Medicine | DX: M48.061 Spinal stenosis, lumbar region without neurogenic claudication (principal) ==

== ENCOUNTER → 2017-06-26 | Outpatient (CLI) | payer MEDICARE, OTHER ==
--- NOTE | 2017-06-26 08:58 | Diagnostic Imaging Report ---
PROCEDURE: CT chest without contrast. TECHNIQUE: Multiple contiguous axial images were obtained through the chest without the use of intravenous contrast. INDICATION: Lung nodule. COMPARISON: Comparison is made with study of 12/22/2015. FINDINGS: Similar to the previous study, there is pleural based nodule posteriorly in left lung along the upper aspect of the major fissure. This measures 0.6 cm in size on the current study. There has been no interval growth. No new mass or infiltrate is identified. There is no significant pleural or pericardial fluid. No evidence of pathologic adenopathy in the thorax. Coronary artery calcifications are noted. Heterogeneous appearance of thyroid gland has remained stable. There is diffuse thoracic spondylosis and degenerative change in the shoulder joints. IMPRESSION: Stable pleural-based nodule in the left lung along the major fissure which may represent scarring. Otherwise, no acute abnormality or adverse change is identified. Dictated by: Dictated on workstation # [id number]
== END ==
LOC: RAD 08:34
PROVIDERS: ATTEND Internal Medicine Critical Care Medicine
DX: R91.1 Solitary pulmonary nodule (principal)
CPT/HCPCS: 71250

== ENCOUNTER → 2017-07-13 | Outpatient (CLI) | payer MEDICARE, OTHER ==
--- NOTE | 2017-07-13 11:48 | Diagnostic Imaging Report ---
INDICATION: Increasing right hip pain, fall 6 months ago. TIME OF EXAM: 11:25 AM 2 views of the right hip were obtained. FINDINGS: The femoral acetabular alignment is normal. The joint space is well maintained. The femoral head and neck appear intact. No fractures are seen. IMPRESSION: No acute bony abnormality is detected. Dictated by: Dictated on workstation # [id number]
== END ==
LOC: RAD 10:55
PROVIDERS: ATTEND Internal Medicine
DX: M25.551 Pain in right hip (principal); M19.90 Unspecified osteoarthritis, unspecified site; Z91.81 History of falling
CPT/HCPCS: 73502

== ENCOUNTER 2017-10-10 06:28 | Emergency (ER) | payer MEDICARE, OTHER ==
[~2017-10-10] VITALS: Ht 152.4 cm; Wt 77.8 kg
[2017-10-10] MEDS ORDERED: NITROGLYCERIN 0.4 MG SL TABS BTL 25'S SL PRN (06:45)
[2017-10-10] MEDS ORDERED: ASPIRIN 81 MG CHEW (CHILDREN'S ASA) PO ONE (06:45)
--- NOTE | 2017-10-10 06:49 | ED Chest Pain ---
General Chief Complaint: Chest Pain Stated Complaint: CHEST UNCOMFORTABLE, HAS NOT BEEN FEELING WELL,NOT Source: patient, other Exam Limitations: no limitations History of Present Illness Date Seen by Provider: Oct 10, 2017 Time Seen by Provider: 06:32 Initial Comments Patient presents to ER by private conveyance with her significant other and a chief complaint that she woke up this morning feeling some chest discomfort nonspecific location without any radiation to her shoulders neck or jaw. There is no pain she is adamant is only discomfort. She has no shortness of breath. She's had a dry nonproductive cough for the last several days. She says she's felt chills but no objective fever whenever she checks it. She's had no nausea sweats or abdominal discomfort. Exertion does not seem to make her chest discomfort any worse. She does have a history of a stent followed by Dr. Maurer and she uses Plavix and aspirin. She says the past month she's been feeling tired and weak and she is seen her primary care doctor Dr. Massey and he's done a lot of lab not found any reason for her feeling weak and tired. 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 She is not diabetic and does not smoke. She does have high blood pressure but has not taken any of her medicines today. Allergies and Home Medications Allergies Coded Allergies: clonidine (Verified Allergy, Unknown, 12/12/07) Home Medications Alprazolam 0.25 Mg Tablet, 0.125-0.25 MG PO HS, (Reported) TAKES 1/2 TO 1 (0.25MG) TABLET Aspirin 81 Mg Tabec, 81 MG PO HS, (Reported) Calcium Carbonate/Vitamin D3 1 Each Tablet, 1 EACH PO DAILY, (Reported) Cetirizine Hcl 10 Mg Tablet, 10 MG PO DAILY PRN for ALLERGIES, (Reported) Clopidogrel Bisulfate 75 Mg Tablet, 75 MG PO DAILY, (Reported) Cyclobenzaprine HCl 5 Mg Tablet, 5 MG PO TID PRN for SPASMS Prescribed by: KIMMY BARNHART on 02/27/17 0852 Diltiazem Hcl 240 Mg Cap.er.24h, 240 MG PO HS, (Reported) Doxazosin Mesylate 2 Mg Tablet, 2 MG PO BID, (Reported) Fenofibrate,Micronized 67 Mg Capsule, 67 MG PO HS, (Reported) Furosemide 20 Mg Tablet, 20 MG PO EVERY OTHER DAY, (Reported) Lactobacillus Acidophilus 1 Each Capsule, 1 CAP PO DAILY, (Reported) Losartan/Hydrochlorothiazide 1 Each Tablet, 1 TAB PO DAILY, (Reported) Multivits-Min/Folic Acid/Biot 1 Each Tablet, 1 TAB PO DAILY, (Reported) Nitroglycerin 0.4 Mg Tab.subl, 0.4 MG SL EVERY 5 MIN PRN for CHEST PAIN, ( Reported) [place]-3 Fatty Acids/Fish Oil 1 Each Capsule, 1,200 MG PO DAILY, (Reported) Pantoprazole Sodium 40 Mg Tablet.dr, 40 MG PO DAILY, (Reported) Potassium Chloride 10 Meq Tab.prt.sr, 10 MEQ PO EVERY OTHER DAY, (Reported) Pravastatin Sodium 10 Mg Tablet, 10 MG PO HS, (Reported) Ubidecarenone 100 Mg Capsule, 100 MG PO DAILY, (Reported) Vitamin B Complex & Vit C No.4 150 Mg Tablet, 150 MG PO DAILY, (Reported) [Turmeric 450MG] , 450 MG PO DAILY, (Reported) [Vitd+Cw/Zinc] , 1 TAB PO BID, (Reported) VIT D3 1000I.U. VIT C 500MG ZINC 15MG Patient Home Medication List Home Medication List Reviewed: Yes Review of Systems Constitutional: chills; No diaphoresis, No fever; malaise, weakness EENTM: No Blurred Vision, No Double Vision Respiratory: Denies Cough, Denies Shortness of Air Cardiovascular: See HPI, Chest Pain; Denies Edema, Denies Palpitations, Denies Syncope Gastrointestinal: Denies Abdomen Distended, Denies Abdominal Pain, Denies Constipated, Denies Diarrhea, Denies Nausea, Denies Poor Appetite Genitourinary: Denies Burning, Denies Discharge Musculoskeletal: No back pain, No joint pain Skin: No pruritus, No rash Psychiatric/Neurological: Denies Headache, Denies Numbness, Denies Paresthesia Past Tpphmob-Cdqhro-Dlwssz Hx Patient Social History Alcohol Use: Denies Use Recreational Drug Use: No Smoking Status: Never a Smoker Recent Foreign Travel: No Contact w/Someone Who Travel: No Recent Hopitalizations: No 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s Up To Date Tetanus Booster (TDap): Unknown Date of Influenza Vaccine: Jan 30, 2012 Seasonal Allergies Seasonal Allergies: Yes Past Medical History Surgeries: Yes (BI LAT KNEES, HEART STENT, BI LAT CARPAL TUNNEL) Coronary Stent, Gallbladder, Hysterectomy, Orthopedic Respiratory: Yes (pulmonary hypertension) Sleep Apnea Cardiac: Yes (pulmonary hypertension) Coronary Artery Disease, High Cholesterol, Hypertension Neurological: No Reproductive Disorders: No Female Reproductive Disorders: Denies 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 Sexually Transmitted Disease: No HIV/AIDS: No Genitourinary: Yes UTI-Chronic Gastrointestinal: Yes Gastroesophageal Reflux, Gall Bladder Disease Musculoskeletal: Yes (SPIINAL STENOSIS) Arthritis Endocrine: No Cataract Loss of Vision: Denies Hearing Impairment: Denies Cancer: No Psychosocial: No Integumentary: No Recent Skin Changes Blood Disorders: No Family Medical History Cardiovascular disease 19 MOTHER Hypertension 19 FATHER Physical Exam Vital Signs Vital Signs - First Documented 10/10/17 06:42 Temp 96.6 Pulse 67 Resp 20 B/P (MAP) 202/85 (124) Pulse Ox 98 Capillary Refill : Height, Weight, BMI Height: 5', 0" Weight: 171lbs 8.0oz, [id number] Method:Stated ,34.38BMI General Appearance: No Apparent Distress, WD/WN HEENT: PERRL/EOMI, Pharynx Normal, Moist Mucous Membranes Neck: Full Range of Motion, Supple Respiratory: Chest Non Tender, Lungs Clear, Normal Breath Sounds, No Accessory Muscle Use, No Respiratory Distress Cardiovascular: Regular Rate, Rhythm, No Edema, Normal Peripheral Pulses Gastrointestinal: Non Tender, Soft Extremity: Normal Capillary Refill, No Pedal Edema Neurologic/Psychiatric: Alert, Oriented x3 Skin: Normal Color, Warm/Dry Progress/Results/Core Measures Results/Orders Lab Results Laboratory Tests Test 10/10/17 06:40 10/10/17 10:22 Range/Units White Blood Count 5.9 4.3-11.0 10^3/uL Red Blood Count 4.61 4.35-5.85 10^6/uL Hemoglobin 14.7 11.5-16.0 G/DL Hematocrit 41 35-52 % Mean Corpuscular Volume 89 80-99 FL Mean Corpuscular Hemoglobin 32 25-34 PG Mean Corpuscular Hemoglobin Concent 36 32-36 G/DL Red Cell Distribution Width 12.1 10.0-14.5 % Platelet Count 304 130-400 10^3/uL Mean Platelet Volume 9.7 7.4-10.4 FL Neutrophils (%) (Auto) 53 42-75 % Lymphocytes (%) (Auto) 34 12-44 % Monocytes (%) (Auto) 10 0-12 % Eosinophils (%) (Auto) 1 0-10 % Basophils (%) (Auto) 1 0-10 % Neutrophils # (Auto) 3.1 1.8-7.8 X 10^3 Lymphocytes # (Auto) 2.0 1.0-4.0 X 10^3 Monocytes # (Auto) 0.6 0.0-1.0 X 10^3 Eosinophils # (Auto) 0.1 0.0-0.3 10^3/uL Basophils # (Auto) 0.1 0.0-0.1 10^3/uL Prothrombin Time 12.9 12.2-14.7 SEC INR Comment 1.0 0.8-1.4 Activated Partial Thromboplast Time 28 24-35 SEC Sodium Level 131 L 135-145 MMOL/L Potassium Level 3.5 L 3.6-5.0 MMOL/L Chloride Level 93 L 98-107 MMOL/L Carbon Dioxide Level 27 21-32 MMOL/L Anion Gap 11 5-14 MMOL/L Blood Urea Nitrogen 9 7-18 MG/DL Creatinine 0.79 0.60-1.30 MG/DL Estimat Glomerular Filtration Rate > 60 BUN/Creatinine Ratio 11 Glucose Level 96 70-105 MG/DL Calcium Level 10.4 H 8.5-10.1 MG/DL Magnesium Level 1.8 1.8-2.4 MG/DL Total Bilirubin 0.7 0.1-1.0 MG/DL Aspartate Amino Transf (AST/SGOT) 18 5-34 U/L Alanine Aminotransferase (ALT/SGPT) 10 0-55 U/L Alkaline Phosphatase 45 40-136 U/L Myoglobin 43.7 10.0-92.0 NG/ML Troponin I < 0.30 < 0.30 <0.30 NG/ML Total Protein 7.9 6.4-8.2 GM/DL Albumin 4.5 3.2-4.5 GM/DL Lipase 16 8-78 U/L My Orders Orders - [facility] Cbc With Automated Diff (10/10/17 06:42) Magnesium (10/10/17 06:42) Chest 1 View, Ap/Pa Only (10/10/17 06:42) Ekg Tracing (10/10/17 06:42) Cardiac Profile 1 (10/10/17 06:42) Comprehensive Metabolic Panel (10/10/17 06:42) Myoglobin Serum (10/10/17 06:42) Protime With Inr (10/10/17 06:42) Partial Thromboplastin Time (10/10/17 06:42) O2 (10/10/17 06:42) Monitor-Rhythm Ecg Trace Only (10/10/17 06:42) Lipid Panel (10/11/17 06:00) Aspirin Chewable Tablet (Baby Aspirin Ch (10/10/17 06:45) Nitroglycerin 0.4 Mg Btl 25's (Nitrostat (10/10/17 06:45) Saline Lock/Iv-Start (10/10/17 06:42) Lipase (10/10/17 06:42) Ekg Tracing (10/10/17 10:00) Troponin I (10/10/17 10:00) Medications Given in ED Current Medications Medications Dose Ordered Sig/Ramón Route Start Time Stop Time Status Last Admin Dose Admin Aspirin 324 mg ONCE ONCE PO 10/10/17 06:45 10/10/17 06:46 DC 10/10/17 06:47 324 MG Nitroglycerin 0.4 mg UD PRN SL 10/10/17 06:45 10/10/17 06:47 0.4 MG Vital Signs/I&O 10/10/17 10/10/17 10/10/17 06:42 06:42 06:42 Temp 96.6 Pulse 67 Resp 20 B/P (MAP) 202/85 (124) Pulse Ox 98 O2 Delivery Room Air Room Air Progress Progress Note #1: Time: 06:48 Progress Note Despite her denial she's having chest pain her chest discomfort is concerning for a cardiogenic source sort any give her aspirin and try a dose of nitroglycerin. She's not had any of her blood pressure medicines and her blood pressure is elevated today with a systolic of 204 mmHg. She is on losartan, hydrochlorothiazide, Cardizem, doxazosin. After receiving 1 dose of nitroglycerin her chest discomfort is completely gone. ED ACS 18 points. Not low risk. This patient is not a candidate for early discharge and should receive a standard chest pain evaluation with delayed troponin testing. May 2016 stress test 1. Breast attenuation affecting the quality of the images with mild ischemia involving the mid to apical anterior wall and anterolateral wall. 2. Normal left ventricular size with hyperactive ventricle. Calculated ejection fraction 89%. Echocardiogram by Dr. Rebolledo November 2015: Normal left ventricular systolic function with an EF of 65%. No evidence significant valvular stenosis. [address] Maurer: Mild coronary artery disease. Patent stent in the LAD. Ejection fraction 70% normal to hyperdynamic left ventricular systolic function. No evidence of significant aortic mitral and pulmonic stenosis. Mild to moderate pulmonary hypertension. Progress Note #2: Time: 08:[address] Maurer's plan with the patient and she is very agreeable with this. She will call for an appointment today to see him tomorrow. We will repeat a troponin and EKG at 10:00. Patient has requested that her family go home and get her morning meds rather than us given to her and this would be okay. They said she only lives 5 minutes away. Initial ECG Impression Date: Oct 10, 2017 Initial ECG Impression Time: 06:34 Initial ECG Rate: 74 Initial ECG Rhythm: Normal Sinus Initial ECG Intervals: Normal Initial ECG Impression: Normal, Nonspecific Changes Initial ECG Comparisson: Unchanged Comment No ST elevation or depression. EKG : EKG Time: 09:58 Rate: 61 Rhythm: Normal Sinus Intervals: Normal ECG Comparisson: Unchanged ECG Impression: Normal, Nonspecific Changes Comment No ST elevation or depression. Diagnostic Imaging Diagonstic Imaging: Xray Plain Films/CT/US/NM/MRI: chest (1v) Reviewed: Reviewed by Me Consults : Consulting Physician: NOEMI MAURER MD FACP FAC CCDS Consults Notes Discussed case labs and imaging EKG with Dr. Rebolledo. The patient is well-known to Dr. Maurer. He recommends a 4-6 hour post started pain repeat troponin and if that's negative we will rule out an WA and he would recommend just follow her up in the clinic tomorrow. He also recommends giving her her morning meds that she's missed for blood pressure. Departure Impression Primary Impression: Chest pain Qualified Codes: R07.9 - Chest pain, unspecified Disposition: 01 HOME, SELF-CARE Condition: Improved Departure-Patient Inst. Decision time for Depature: 11:08 Referrals: EUGENIA MASSEY DO (PCP/Family) Primary Care Physician Patient Instructions: Chest Pain (DC) Add. Discharge Instructions: Please make plans to follow-up with Dr. Maurer in his clinic tomorrow. All discharge instructions reviewed with patient and/or family. Voiced understanding. Copy Copies To 1: NOEMI MAURER MD FACP FACC CCDS; EUGENIA MASSEY TITUS J Oct 10, 2017 06:49
[2017-10-10 06:55] LABS: BASOPHILS # (AUTO) 0.1 10^3/uL (0.0-0.1); BASOPHILS % (AUTO) 1 % (0-10); EOSINOPHILS # (AUTO) 0.1 10^3/uL (0.0-0.3); EOSINOPHILS % (AUTO) 1 % (0-10); HEMATOCRIT 41 % (35-52); HEMOGLOBIN 14.7 G/DL (11.5-16.0); LYMPHOCYTES % (AUTO) 34 % (12-44); MEAN CORPUSCULAR HEMOGLOBIN 32 PG (25-34); MEAN CORPUSCULAR HGB CONC 36 G/DL (32-36); MEAN CORPUSCULAR VOLUME 89 FL (80-99); MEAN PLATELET VOLUME 9.7 FL (7.4-10.4); MONOCYTES # (AUTO) 0.6 X 10^3 (0.0-1.0); MONOCYTES % (AUTO) 10 % (0-12); NEUTROPHILS # (AUTO) 3.1 X 10^3 (1.8-7.8); NEUTROPHILS % (AUTO) 53 % (42-75); PLATELET COUNT 304 10^3/uL (130-400); RED BLOOD COUNT 4.61 10^6/uL (4.35-5.85); RED CELL DISTRIBUTION WIDTH 12.1 % (10.0-14.5); WHITE BLOOD COUNT 5.9 10^3/uL (4.3-11.0)
[2017-10-10 07:13] LABS: PROTHROMBIN TIME PATIENT 12.9 SEC (12.2-14.7)
[2017-10-10 07:16] LABS: ALANINE AMINOTRANSFERASE 10 U/L (0-55); ALBUMIN 4.5 GM/DL (3.2-4.5); ALKALINE PHOSPHATASE 45 U/L (40-136); BILIRUBIN,TOTAL 0.7 MG/DL (0.1-1.0); BUN/CREATININE RATIO 11; CALCIUM 10.4 MG/DL (8.5-10.1); CARBON DIOXIDE 27 MMOL/L (21-32); CHLORIDE 93 MMOL/L (98-107); CREATININE SERUM 0.79 MG/DL (0.60-1.30); GFR ESTIMATED > 60; GLUCOSE 96 MG/DL (70-105); LIPASE 16 U/L (8-78); MAGNESIUM 1.8 MG/DL (1.8-2.4); POTASSIUM 3.5 MMOL/L (3.6-5.0); SODIUM 131 MMOL/L (135-145); TOTAL PROTEIN 7.9 GM/DL (6.4-8.2)
[2017-10-10 07:22] LABS: MYOGLOBIN SERUM 43.7 NG/ML (10.0-92.0)
--- NOTE | 2017-10-10 08:03 | Diagnostic Imaging Report ---
INDICATION: Chest pain COMPARISON: 02/28/2017 FINDINGS: Air trapping and COPD chronic. The heart size within normal limits and perihilar scarring chronic. No effusion or pneumothorax. No acute pneumonia. IMPRESSION: Stable chronic findings. Dictated by: Dictated on workstation # [id number]
[2017-10-10 11:22] VITALS: BP 133/96
== END 2017-10-10 11:30 | disposition home or self-care (01) ==
LOC: EDUNIT# 06:28 → ER 06:31
DX: R07.89 Other chest pain (principal); I27.0 Primary pulmonary hypertension; I25.10 Atherosclerotic heart disease of native coronary artery without angina pectoris; E78.00 Pure hypercholesterolemia, unspecified; I10 Essential (primary) hypertension; K21.9 Gastro-esophageal reflux disease without esophagitis; Z95.5 Presence of coronary angioplasty implant and graft; Z79.02 Long term (current) use of antithrombotics/antiplatelets; Z79.82 Long term (current) use of aspirin; Z91.14 Patient's other noncompliance with medication regimen; Z88.8 Allergy status to other drugs, medicaments and biological substances; Z90.710 Acquired absence of both cervix and uterus
CPT/HCPCS: 36415; 71045; 80053; 83690; 83735; 83874; 84484; 85025; 85610; 85730; 93005; 93041

== ENCOUNTER 2017-11-29 20:57 | Outpatient (CLI) | payer MEDICARE, OTHER | END 2017-11-30 05:50 | disposition home or self-care (01) | LOC: SLEEP 20:57 | PROVIDERS: ATTEND Internal Medicine | DX: G47.33 Obstructive sleep apnea (adult) (pediatric) (principal) | CPT/HCPCS: 95810 ==

== ENCOUNTER 2018-01-03 19:45 | Outpatient (CLI) | payer MEDICARE, OTHER | END 2018-01-04 05:25 | disposition home or self-care (01) | LOC: SLEEP 19:45 | PROVIDERS: ATTEND Internal Medicine | DX: G47.33 Obstructive sleep apnea (adult) (pediatric) (principal); R09.02 Hypoxemia | CPT/HCPCS: 95811 ==

== ENCOUNTER → 2018-01-22 | Outpatient (CLI) | payer MEDICARE, OTHER | LOC: CARD 07:57 | PROVIDERS: ATTEND Nurse Practitioner Family | DX: R00.2 Palpitations (principal) | CPT/HCPCS: 93225; 93226 ==

== ENCOUNTER → 2018-02-13 | Outpatient (CLI) | payer MEDICARE, OTHER | LOC: CARD 12:56 | PROVIDERS: ATTEND Internal Medicine Critical Care Medicine | DX: I27.23 Pulmonary hypertension due to lung diseases and hypoxia (principal); I08.1 Rheumatic disorders of both mitral and tricuspid valves | CPT/HCPCS: 93306 ==

== ENCOUNTER → 2018-03-05 | Outpatient (CLI) | payer MEDICARE, OTHER ==
--- NOTE | 2018-03-05 13:06 | Diagnostic Imaging Report ---
INDICATION: Constipation. COMPARISON: 06/27/2007. FINDINGS: Two supine radiographic views of the abdomen were obtained and demonstrate nondistended loops of small bowel. There is no large collection of free peritoneal air. Moderate air and stool are seen scattered throughout the colon. Extraosseous calcification is seen projecting over the left renal shadow. No unexpected radiopaque foreign bodies are identified. Bony structures show no gross acute abnormalities. IMPRESSION: 1. Nonobstructed small bowel gas pattern. 2. Moderate colonic air and stool. Please correlate for constipation 3. Probable left-sided nephrolithiasis. Dictated by: Dictated on workstation # [id number]
== END ==
LOC: RAD 11:33
PROVIDERS: ATTEND Internal Medicine
DX: K59.00 Constipation, unspecified (principal)
CPT/HCPCS: 74018

== ENCOUNTER 2018-11-02 14:54 | Outpatient (RCR) | payer MEDICARE, OTHER | END 2018-11-13 | disposition home or self-care (01) | PROVIDERS: ATTEND Internal Medicine | DX: M48.061 Spinal stenosis, lumbar region without neurogenic claudication (principal) ==

== ENCOUNTER → 2019-01-18 | Outpatient (CLI) | payer MEDICARE, OTHER | LOC: CARD 10:47 | PROVIDERS: ATTEND Internal Medicine | DX: I34.0 Nonrheumatic mitral (valve) insufficiency (principal); I50.812 Chronic right heart failure; I51.7 Cardiomegaly | CPT/HCPCS: 93306 ==

== ENCOUNTER → 2019-02-15 | Outpatient (CLI) | payer MEDICARE, OTHER ==
[~2019-02-15] VITALS: Ht 152 cm; Wt 71.0 kg
[~2019-02-15] MED LIST changes: +CATHETER FLUSH 10 ML SYR IV PRN; +REGADENOSON 0.4 MG/5 ML SYR (LEXISCAN) IV ONE
[2019-02-15 08:15] VITALS: BP 209/98
[2019-02-15 08:18] VITALS: BP 172/76
--- NOTE | 2019-02-15 15:28 | STRESS TEST ---
DATE OF SERVICE: 02/15/2019 RESTING AND POST REGADENOSON TECHNETIUM-99M TETROFOSMIN SPECT CT IMAGING ORDERING PHYSICIAN: Dr. Massey. PRIMARY PHYSICIAN: Dr. Massey. OTHER PHYSICIAN: Dr. Maurer. CLINICAL DIAGNOSES: Coronary artery disease. Baseline images were carried out after injection of 10 mCi of technetium-99m Tetrofosmin. This was followed by 0.4 mg regadenoson and 32.5 mCi of technetium-99m Tetrofosmin for stress imaging. The electrocardiogram did not change significantly with regadenoson infusion. The patient tolerated the procedure well. Review of images at rest and following stress does not indicate any distinct perfusion defects consistent with significant myocardial ischemia or infarction. Gated images show normal to hyperdynamic left ventricular systolic function with a calculated ejection fraction of 81%. Left ventricular end-diastolic volume is 42 mL. TID is absent (1.06). CONCLUSIONS: 1. No evidence of any significant myocardial ischemia or infarction on this study. 2. Normal to hyperdynamic left ventricular systolic function with a calculated ejection fraction of 81%. 3. No regional wall motion abnormality is seen on this study. Job ID: [id number] DocumentID: [id number] Dictated Date: 02/15/2019 15:08:38 Prints And Drawings Curator Date: 02/15/2019 15:27:39 Dictated By: NOEMI MAURER MD, MA, FACP, FACC,
== END ==
LOC: CARD 06:39
PROVIDERS: ATTEND Internal Medicine
DX: I25.10 Atherosclerotic heart disease of native coronary artery without angina pectoris (principal)
CPT/HCPCS: 78452; 93017

== ENCOUNTER → 2019-02-18 | Outpatient (CLI) | payer MEDICARE, OTHER ==
[~2019-02-18] MED LIST changes: -CATHETER FLUSH 10 ML SYR IV PRN; -REGADENOSON 0.4 MG/5 ML SYR (LEXISCAN) IV ONE
--- NOTE | 2019-02-18 16:54 | Diagnostic Imaging Report ---
INDICATION: Hypertension, atherosclerotic heart disease. Bilateral renal sonography was performed with Doppler evaluation as well. The right kidney measures 11.1 x 4.8 x 4.8 cm. There is a cyst in the right kidney inferiorly measuring 3.5 x 2.8 x 2.8 cm. The right kidney shows no hydronephrosis. The left kidney measures 13.4 x 6.4 x 5.6 cm. There is no hydronephrosis. There are multiple left-sided renal cysts, the largest of which measures 8.9 x 6.2 x 6.1 cm. Urinary bladder appears unremarkable with bilateral ureteral jets. Renal artery Doppler was performed demonstrating no significant velocity elevation in the renal arteries with normal-appearing waveforms. There is no sonographic finding to suggest renal artery stenosis. IMPRESSION: Bilateral renal cysts. There is no hydronephrosis. Urinary bladder appears unremarkable. There is no sonographic evidence of renal artery stenosis. Dictated by: Dictated on workstation # [id number]
== END ==
LOC: RAD 08:35
PROVIDERS: ATTEND Internal Medicine
DX: I25.10 Atherosclerotic heart disease of native coronary artery without angina pectoris (principal); G47.33 Obstructive sleep apnea (adult) (pediatric); I27.20 Pulmonary hypertension, unspecified; N28.1 Cyst of kidney, acquired; I10 Essential (primary) hypertension
CPT/HCPCS: 76770; 93975

== ENCOUNTER → 2019-03-07 | Outpatient (CLI) | payer MEDICARE, OTHER ==
--- NOTE | 2019-03-07 13:52 | Diagnostic Imaging Report ---
INDICATION: Difficulty breathing and pulmonary hypertension. PA and lateral chest obtained at 11:00 a.m. and is compared to 10/10/2017 Heart is mildly enlarged. There is minimal central vascular prominence which appears similar to the prior study. There are chronic appearing increased interstitial markings. There is no acute consolidation or pneumothorax or pleural fluid. IMPRESSION: Mild cardiomegaly and central vascular prominence. Chronic appearing increased markings with no acute infiltrate or pneumothorax or pleural fluid. Dictated by: Dictated on workstation # [id number]
== END ==
LOC: RAD 10:40
PROVIDERS: ATTEND Internal Medicine Critical Care Medicine
DX: I27.21 Secondary pulmonary arterial hypertension (principal); I50.9 Heart failure, unspecified; I51.7 Cardiomegaly
CPT/HCPCS: 71046

== ENCOUNTER → 2019-06-21 | Outpatient (CLI) | payer MEDICARE, OTHER | LOC: LAB 11:59 | PROVIDERS: ATTEND Internal Medicine | DX: Z22.322 Carrier or suspected carrier of Methicillin resistant Staphylococcus aureus (principal) | CPT/HCPCS: 87081 ==

== ENCOUNTER 2019-10-09 08:41 | Emergency (ER) | payer MEDICARE, OTHER ==
[~2019-10-09] VITALS: Ht 152.4 cm; Wt 67.2 kg
--- NOTE | 2019-10-09 08:59 | NUR ---
TALKED WITH DAUGHTER SANTIAGO BY PHONE.
[2019-10-09 09:21] VITALS: BP 197/77
--- NOTE | 2019-10-09 09:45 | NUR ---
RETURN FROM CT.
--- NOTE | 2019-10-09 09:56 | NUR ---
Rafaela gayle in [facility] - 10/09/19 at 1012 by PMCCLURE PATIENT REQUEST THAT STAFF CANCEL FOR PT APPOINTMENT FOR TODAY.
[2019-10-09 10:00] VITALS: BP 214/87
--- NOTE | 2019-10-09 10:03 | Diagnostic Imaging Report ---
PROCEDURE: CT head, face, and cervical spine without contrast. TECHNIQUE: Multiple contiguous axial images were obtained through the head, neck, and facial bones without the use of intravenous contrast. Sagittal and coronal reformations through the cervical spine and facial bones were also performed. Auto Exposure Controls were utilized during the CT exam to meet ALARA standards for radiation dose reduction. INDICATION: Fall face down. Correlation is made with prior head CT from 02/28/2017. CT head: There is a scalp hematoma in the midline frontal scalp. The ventricles and sulci are prominent consistent with the patient's age. No sulcal effacement or midline shift is identified. No acute intra-axial or extra-axial hemorrhage is detected. Cisterns are patent. Visualized paranasal sinuses are clear. IMPRESSION: 1. Age related atrophy. No acute intracranial process is detected. 2. Frontal scalp hematoma. CT cervical spine: There is minimal anterolisthesis of C3 on C4 with minimal retrolisthesis of C4 on C5. There is multilevel degenerative disc disease with variable disc space narrowing and marginal spurring. There is multilevel facet arthropathy. Odontoid appears intact. No fractures are identified. Prevertebral tissues are normal. IMPRESSION: Cervical spondylosis. No acute bony abnormality is detected. CT face: The mandible appears intact. Zygomatic arches are intact. The maxillary sinus purcell appear to be intact. There are findings suggestive of a fracture involving the anterior aspect of the left nasal bone, minimally displaced. The orbital purcell appear to be intact. Soft tissue swelling in the right frontal scalp is seen. Paranasal sinuses are clear. IMPRESSION: Right frontal scalp hematoma. There also appears to be a minimally displaced left anterior nasal bone fracture. No other significant abnormality is detected. Dictated by: Dictated on workstation # [id number]
--- NOTE | 2019-10-09 10:15 | ED Fall/Injury ---
General Chief Complaint: Trauma-Non Activation Stated Complaint: FALL, HIT HEAD, NOSE LACERATION Nursing Triage Note: TO ED PER W/C PATIENT REPORTS SHE TRIPPED AND FELL FACE NO LOCHEMATOMA FTO FOREHEAD LACERATION TO NOSE,ABASION TO LOWER LIP AREA Source: patient Exam Limitations: no limitations (EMILY MCCLELLAND MD) History of Present Illness Date Seen by Provider: Oct 09, 2019 Time Seen by Provider: 08:48 Initial Comments Here with report of fall and bloody nose. She was walking into the [employer] shop with the assistance of her cane when she apparently tripped over a raised concrete and fell on her face. Denies loss of consciousness but did have a bloody nose and broke her upper denture. Does have hematoma to the center of the forehead as well as laceration on the bridge of the nose and to the upper lip. Bleeding has stopped now. Denies other injury or concern. Unknown when her last tetanus was. Occurred: this morning (approximately 30 minutes prior to arrival) Severity: moderate Injuries/Pain Location: head, face Context: tripped Loss of Consciousness: no loss of consciousness Modifying Factors: Improves With Immobilization, Improves With Rest Associated Symptoms (Fall): No Abdominal Pain, No Chest Pain, No Confusion, No Dizziness, No Lightheadedness, No Muscle Spasms, No Nausea/Vomiting, No Neck Pain, No Shortness of Air, No Vision Changes (EMILY MCCLELLAND MD) Allergies and Home Medications Allergies Coded Allergies: clonidine (Verified Allergy, Unknown, 12/12/07) Home Medications Alprazolam 0.25 Mg Tablet, 0.125-0.25 MG PO HS, (Reported) TAKES 1/2 TO 1 (0.25MG) TABLET Aspirin 81 Mg Tabec, 81 MG PO HS, (Reported) Calcium Carbonate/Vitamin D3 1 Each Tablet, 1 EACH PO DAILY, (Reported) Cetirizine Hcl 10 Mg Tablet, 10 MG PO DAILY PRN for ALLERGIES, (Reported) Clopidogrel Bisulfate 75 Mg Tablet, 75 MG PO DAILY, (Reported) Cyclobenzaprine HCl 5 Mg Tablet, 5 MG PO TID PRN for SPASMS Prescribed by: KIMMY BARNHART on 02/27/17 0852 Diltiazem Hcl 240 Mg Cap.er.24h, 240 MG PO HS, (Reported) Doxazosin Mesylate 2 Mg Tablet, 2 MG PO BID, (Reported) Fenofibrate,Micronized 67 Mg Capsule, 67 MG PO HS, (Reported) Furosemide 20 Mg Tablet, 20 MG PO EVERY OTHER DAY, (Reported) Lactobacillus Acidophilus 1 Each Capsule, 1 CAP PO DAILY, (Reported) Losartan/Hydrochlorothiazide 1 Each Tablet, 1 TAB PO DAILY, (Reported) Multivits-Min/Folic Acid/Biot 1 Each Tablet, 1 TAB PO DAILY, (Reported) Nitroglycerin 0.4 Mg Tab.subl, 0.4 MG SL EVERY 5 MIN PRN for CHEST PAIN, (Reported) [place]-3 Fatty Acids/Fish Oil 1 Each Capsule, 1,200 MG PO DAILY, (Reported) Pantoprazole Sodium 40 Mg Tablet.dr, 40 MG PO DAILY, (Reported) Potassium Chloride 10 Meq Tab.prt.sr, 10 MEQ PO EVERY OTHER DAY, (Reported) Pravastatin Sodium 10 Mg Tablet, 10 MG PO HS, (Reported) Ubidecarenone 100 Mg Capsule, 100 MG PO DAILY, (Reported) Vitamin B Complex & Vit C No.4 150 Mg Tablet, 150 MG PO DAILY, (Reported) [Turmeric 450MG] , 450 MG PO DAILY, (Reported) [Vitd+Cw/Zinc] , 1 TAB PO BID, (Reported) VIT D3 1000I.U. VIT C 500MG ZINC 15MG Patient Home Medication List Home Medication List Reviewed: Yes (EMILY MCCLELLAND MD) Review of Systems Review of Systems Constitutional: see HPI; No chills, No fever Eyes: No Symptoms Reported Ears, Nose, Mouth, Throat: see HPI, nose pain, epistaxis Respiratory: No cough, No short of breath Cardiovascular: no symptoms reported Gastrointestinal: no symptoms reported Musculoskeletal: No joint pain, No muscle pain Skin: change in color, lesions Psychiatric/Neurological: No Symptoms Reported (EMILY MCCLELLAND MD) Past Qgmgmre-Retjgz-Elyvhq Hx Past Med/Social Hx: Reviewed Nursing Past Med/Soc Hx (EMILY MCCLELLAND MD) Patient Social History Alcohol Use: Denies Use Recreational Drug Use: No Smoking Status: Never a Smoker Recent Foreign Travel: No Contact w/Someone Who Travel: No Recent Infectious Disease Expo: No Recent Hopitalizations: No (EMILY MCCLELLAND MD) 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s Up To Date Tetanus Booster (TDap): Unknown Date of Influenza Vaccine: Jan 30, 2012 (EMILY MCCLELLAND MD) Seasonal Allergies Seasonal Allergies: Yes (EMILY MCCLELLAND MD) Past Medical History Surgeries: Yes (BI LAT KNEES, HEART STENT, BI LAT CARPAL TUNNEL) Coronary Stent, Gallbladder, Hysterectomy, Orthopedic Respiratory: Yes (pulmonary hypertension) Sleep Apnea Cardiac: Yes (pulmonary hypertension) Coronary Artery Disease, High Cholesterol, Hypertension Neurological: No Reproductive Disorders: No 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 Sexually Transmitted Disease: No HIV/AIDS: No Genitourinary: Yes UTI-Chronic Gastrointestinal: Yes Gastroesophageal Reflux, Gall Bladder Disease Musculoskeletal: Yes (SPIINAL STENOSIS) Arthritis Endocrine: No Cataract Loss of Vision: Denies Hearing Impairment: Denies Cancer: No Psychosocial: No Integumentary: No Recent Skin Changes Blood Disorders: No (EMILY MCCLELLAND MD) Family Medical History Reviewed Nursing Family Hx (EMILY MCCLELLAND MD) Cardiovascular disease 19 MOTHER Hypertension 19 FATHER Physical Exam Vital Signs Vital Signs - First Documented 10/09/19 08:46 Temp 36.9 Pulse 74 Resp 18 B/P (MAP) 205/58 (107) Pulse Ox 97 O2 Delivery Room Air (GIL RM APRN) Vital Signs Capillary Refill : Less Than 3 Seconds (EMILY MCCLELLAND MD) Height, Weight, BMI Height: 5'0" Weight: 171lbs. 8.0oz. 77.583053ys; 28.00 BMI Method:Stated General Appearance: WD/WN, no apparent distress HEENT: TMs normal, pharynx normal, other (3 x 3 cm contusion to the forehead centrally and to the right side just above the medial right brow. No active status is currently. No septal hematoma noted. Laceration to bridge of nose that is reverse C-shaped. Does have 1 cm laceration to the mid upper lip that is not through the vermilion border but does enter to the mucosa. Bleeding controlled at all lacerations.) Neck: non-tender, full range of motion, supple, normal inspection Cardiovascular: regular rate, rhythm, no murmur Respiratory: lungs clear, normal breath sounds Gastrointestinal: non tender, soft Back: normal inspection, no CVA tenderness, no vertebral tenderness Extremities: normal range of motion, non-tender, normal inspection, no calf tenderness, pelvis stable Neurologic/Psychiatric: alert, oriented x 3 Skin: warm/dry, ecchymosis (facial), other (lacerations and ecchymosis is noted but no other abrasions noted to extremities.) (EMILY MCCLELLAND MD) Iris Coma Score Best Eye Response: (4) Open Spontaneously Best Verbal Response: (5) Oriented Best Motor Response: (6) Obeys Commands (EMILY MCCLELLAND MD) Procedures/Interventions Wound Location: Face Wound Length (cm): 1 Wound's Depth, Shape: linear Wound Explored: clean Anesthesia: Lidocaine w/ Epi Volume Anesthetic (ccs): 1 Suture: Vicryl Suture Size: 3-0 Other Closure Supply: Wound Adhesive Number of Sutures: 3 Layer Closure?: 1 Number Deep Layer Sutures: 0 Progress Bridge of the nose was cleaned, closed with skin adhesive. Mucosal surface of the upper lip has a 1 cm laceration that was closed with 3 simple interrupted sutures size 3-0 Vicryl (GIL RM APRN) Progress/Results/Core Measures Results/Orders My Orders Orders - GIL RM APRN Lidocaine/Epi 1% 1:200,00 (Xylocaine/Epi (10/09/19 10:30) Lidocaine/Epi 2% 1:100,000 (Xylocaine/Ep (10/09/19 10:30) Lidocaine/Epi 2% 1:100,000 (Xylocaine/Ep (10/09/19 10:25) (GIL RM APRN) Medications Given in ED Current Medications Medications Dose Ordered Sig/Ramón Route Start Time Stop Time Status Last Admin Dose Admin Lidocaine/ Epinephrine 20 ml ONCE ONCE INJ 10/09/19 10:30 10/09/19 10:31 DC 10/09/19 10:28 20 ML (GIL RM APRN) Vital Signs/I&O 10/09/19 10/09/19 08:46 09:21 Temp 36.9 Pulse 74 62 Resp 18 18 B/P (MAP) 205/58 (107) 197/77 (117) Pulse Ox 97 95 O2 Delivery Room Air Room Air (GIL RM APRN) Blood Pressure Mean: 117 Progress Progress Note : Progress Note Seen and evaluated. CT of the head, face and neck ordered. Tetanus ordered. Monitor patient. (EMILY MCCLELLAND MD) Diagnostic Imaging Diagonstic Imaging: CT Plain Films/CT/US/NM/MRI: facial bones, c-spine, head Comments [facility] [place], [place] NAME: LUIS LI [facility] REC#: [id number] PT STATUS: REG ER : 1935 PHYSICIAN: EMILY MCCLELLAND MD ADMIT DATE: 10/09/19/ER Draft Date of Exam:10/09/19 CT HEAD/FACE/CERVICAL WO PROCEDURE: CT head, face, and cervical spine without contrast. TECHNIQUE: Multiple contiguous axial images were obtained through the head, neck, and facial bones without the use of intravenous contrast. Sagittal and coronal reformations through the cervical spine and facial bones were also performed. Auto Exposure Controls were utilized during the CT exam to meet ALARA standards for radiation dose reduction. INDICATION: Fall face down. Correlation is made with prior head CT from 02/28/2017. CT head: There is a scalp hematoma in the midline frontal scalp. The ventricles and sulci are prominent consistent with the patient's age. No sulcal effacement or midline shift is identified. No acute intra-axial or extra-axial hemorrhage is detected. Cisterns are patent. Visualized paranasal sinuses are clear. IMPRESSION: 1. Age related atrophy. No acute intracranial process is detected. 2. Frontal scalp hematoma. CT cervical spine: There is minimal anterolisthesis of C3 on C4 with minimal retrolisthesis of C4 on C5. There is multilevel degenerative disc disease with variable disc space narrowing and marginal spurring. There is multilevel facet arthropathy. Odontoid appears intact. No fractures are identified. Prevertebral tissues are normal. IMPRESSION: Cervical spondylosis. No acute bony abnormality is detected. CT face: The mandible appears intact. Zygomatic arches are intact. The maxillary sinus purcell appear to be intact. There are findings suggestive of a fracture involving the anterior aspect of the left nasal bone, minimally displaced. The orbital purcell appear to be intact. Soft tissue swelling in the right frontal scalp is seen. Paranasal sinuses are clear. IMPRESSION: Right frontal scalp hematoma. There also appears to be a minimally displaced left anterior nasal bone fracture. No other significant abnormality is detected. Dictated on workstation # [id number] Dict: 10/09/19 0956 Trans: 10/09/19 1002 [facility] [id number] Interpreted by: ADAM ZAPIEN MD Electronically signed by: Reviewed: Reviewed by Me (EMILY MCCLELLAND MD) Departure Communication (Admissions) She did break her dentures, the upper limbs. She states she has another pair at home. (GIL RM APRN) Impression Primary Impression: Facial laceration Qualified Codes: S01.81XA - Laceration without foreign body of other part of head, initial encounter Disposition: HOME, SELF-CARE Condition: Stable Departure-Patient Inst. Decision time for Depature: 10:41 (GIL RM APRN) Referrals: EUGENIA DYER DO (PCP/Family) Primary Care Physician Patient Instructions: Laceration Repair With Stitches (DC) Add. Discharge Instructions: 1. The glue will follow from the bridge of the nose and just a few days. You can shower and gently pat this dry. Stitches on the upper lip will dissolve on their own in about 10 days. All discharge instructions reviewed with patient and/or family. Voiced understanding. Scripts Amoxicillin (Amoxicillin) 500 Mg Capsule 500 MG PO TID, #15 CAP Prov: GIL RM APRN 10/09/19 EMILY MCCLELLAND MD Oct 09, 2019 10:15 GIL RM APRN Oct 09, 2019 10:43
[2019-10-09] MEDS ORDERED: LIDOCAINE/EPI 2% 1:100,00 (XYLOCAINE) 20 ML VIAL ONE (10:25)
[2019-10-09] MEDS ORDERED: LIDOCAINE/EPI 1%-1:200,000 (XYLOCAINE) 30 ML VIAL INJ ONE (10:30)
[2019-10-09] MEDS ORDERED: LIDOCAINE/EPI 2% 1:100,00 (XYLOCAINE) 20 ML VIAL INJ ONE (10:30)
[2019-10-09] MEDS ORDERED: AMOX500C2 PO (10:43)
[2019-10-09] MEDS ORDERED: amLODIPine 5 MG (NORVASC) TAB PO ONE (10:45)
[2019-10-09] MEDS ORDERED: TETANUS,DIPTH,PERTUSS P/F (BOOSTRIX) 0.5 ML VIAL IM ONE (10:45)
[2019-10-09 11:05] VITALS: BP 179/94
== END 2019-10-09 11:08 | disposition home or self-care (01) ==
LOC: EDUNIT# 08:41 → ER 08:43
DX: S01.81XA Laceration without foreign body of other part of head, initial encounter (principal); I10 Essential (primary) hypertension; I25.10 Atherosclerotic heart disease of native coronary artery without angina pectoris; E78.00 Pure hypercholesterolemia, unspecified; K21.9 Gastro-esophageal reflux disease without esophagitis; R40.2142 Coma scale, eyes open, spontaneous, at arrival to emergency department; R40.2252 Coma scale, best verbal response, oriented, at arrival to emergency department; R40.2362 Coma scale, best motor response, obeys commands, at arrival to emergency department; Z79.02 Long term (current) use of antithrombotics/antiplatelets; Z82.49 Family history of ischemic heart disease and other diseases of the circulatory system; Z23 Encounter for immunization; Z88.8 Allergy status to other drugs, medicaments and biological substances; Z95.5 Presence of coronary angioplasty implant and graft; Z79.82 Long term (current) use of aspirin; W01.198A Fall on same level from slipping, tripping and stumbling with subsequent striking against other object, initial encounter
CPT/HCPCS: 70450; 70486; 72125; 90715

== ENCOUNTER 2019-10-16 12:50 | Emergency (ER) | payer MEDICARE, OTHER ==
[~2019-10-16] VITALS: Ht 152.4 cm; Wt 67.2 kg
[~2019-10-16 12:50] MED LIST changes: +AMOX500C2 PO
--- NOTE | 2019-10-16 13:33 | ED General ---
General Chief Complaint: Neurological Problems Stated Complaint: FALL Nursing Triage Note: PT TO ROOM 07 WITH C/O WEAKNESS STARTING TODAY. PT STATES THAT SHE WAS AT HOME AND STARTED FEELING WEAK AND THOUGHT SHE WAS GOING TO FALL. PT STATES THAT SHE DID NOT FALL TODAY. PT HAS MULTIPLE BRUISES TO FACE AND KNEES FROM A PREVIOUS FALL AND PT STATES SHE CAME TO THIS ED FOR THAT FALL. Nursing Sepsis Screen: No Definite Risk Source of Information: Patient Exam Limitations: No Limitations History of Present Illness Date Seen by Provider: Oct 16, 2019 Time Seen by Provider: 13:29 Initial Comments To ER by private vehicle with reports of weakness and forgetfulness. She was h ere recently with a fall and head injury, large hematoma to the right side of the forehead but an unremarkable CT scan of the brain. Today had some increasing weakness and memory troubles. Timing/Duration: 1-2 Days Severity: Moderate Allergies and Home Medications Allergies Coded Allergies: clonidine (Verified Allergy, Unknown, 12/12/07) Home Medications Alprazolam 0.25 Mg Tablet, 0.125-0.25 MG PO HS, (Reported) TAKES 1/2 TO 1 (0.25MG) TABLET Amoxicillin 500 Mg Capsule, 500 MG PO TID Prescribed by: GIL RM on 10/09/19 1043 Aspirin 81 Mg Tabec, 81 MG PO HS, (Reported) Calcium Carbonate/Vitamin D3 1 Each Tablet, 1 EACH PO DAILY, (Reported) Cetirizine Hcl 10 Mg Tablet, 10 MG PO DAILY PRN for ALLERGIES, (Reported) Clopidogrel Bisulfate 75 Mg Tablet, 75 MG PO DAILY, (Reported) Cyclobenzaprine HCl 5 Mg Tablet, 5 MG PO TID PRN for SPASMS Prescribed by: KIMMY BARNHART on 02/27/17 0852 Diltiazem Hcl 240 Mg Cap.er.24h, 240 MG PO HS, (Reported) Doxazosin Mesylate 2 Mg Tablet, 2 MG PO BID, (Reported) Fenofibrate,Micronized 67 Mg Capsule, 67 MG PO HS, (Reported) Furosemide 20 Mg Tablet, 20 MG PO EVERY OTHER DAY, (Reported) Lactobacillus Acidophilus 1 Each Capsule, 1 CAP PO DAILY, (Reported) Losartan/Hydrochlorothiazide 1 Each Tablet, 1 TAB PO DAILY, (Reported) Multivits-Min/Folic Acid/Biot 1 Each Tablet, 1 TAB PO DAILY, (Reported) Nitroglycerin 0.4 Mg Tab.subl, 0.4 MG SL EVERY 5 MIN PRN for CHEST PAIN, (Reported) [place]-3 Fatty Acids/Fish Oil 1 Each Capsule, 1,200 MG PO DAILY, (Reported) Pantoprazole Sodium 40 Mg Tablet.dr, 40 MG PO DAILY, (Reported) Potassium Chloride 10 Meq Tab.prt.sr, 10 MEQ PO EVERY OTHER DAY, (Reported) Pravastatin Sodium 10 Mg Tablet, 10 MG PO HS, (Reported) Ubidecarenone 100 Mg Capsule, 100 MG PO DAILY, (Reported) Vitamin B Complex & Vit C No.4 150 Mg Tablet, 150 MG PO DAILY, (Reported) [Turmeric 450MG] , 450 MG PO DAILY, (Reported) [Vitd+Cw/Zinc] , 1 TAB PO BID, (Reported) VIT D3 1000I.U. VIT C 500MG ZINC 15MG Patient Home Medication List Home Medication List Reviewed: Yes Review of Systems Review of Systems Constitutional: see HPI EENTM: see HPI Respiratory: no symptoms reported Cardiovascular: no symptoms reported, palpitations Genitourinary: no symptoms reported Musculoskeletal: see HPI Skin: no symptoms reported Psychiatric/Neurological: See HPI, Weakness Hematologic/Lymphatic: No Symptoms Reported Immunological/Allergic: no symptoms reported Past Ebrcinv-Ivahss-Lvbqss Hx Patient Social History Alcohol Use: Denies Use Recreational Drug Use: No Smoking Status: Never a Smoker 2nd Hand Smoke Exposure: No Recent Foreign Travel: No Contact w/Someone Who Travel: No Recent Infectious Disease Expo: No Recent Hopitalizations: No Physical Abuse: No Sexual Abuse: No Mistreated: No Fear: No 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s Up To Date Tetanus Booster (TDap): Unknown Date of Influenza Vaccine: Jan 30, 2012 Seasonal Allergies Seasonal Allergies: Yes Past Medical History Surgeries: Yes (BI LAT KNEES, HEART STENT, BI LAT CARPAL TUNNEL) Coronary Stent, Gallbladder, Hysterectomy, Orthopedic Respiratory: Yes (pulmonary hypertension) Sleep Apnea Cardiac: Yes (pulmonary hypertension) Coronary Artery Disease, High Cholesterol, Hypertension Neurological: No Reproductive Disorders: No 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 Sexually Transmitted Disease: No HIV/AIDS: No Genitourinary: Yes UTI-Chronic Gastrointestinal: Yes Gastroesophageal Reflux, Gall Bladder Disease Musculoskeletal: Yes (SPIINAL STENOSIS) Arthritis Endocrine: No Cataract Loss of Vision: Denies Hearing Impairment: Denies Cancer: No Psychosocial: No Integumentary: No Recent Skin Changes Blood Disorders: No Family Medical History Cardiovascular disease 19 MOTHER Hypertension 19 FATHER Physical Exam Vital Signs Vital Signs - First Documented 10/16/19 13:01 Temp 36.8 Pulse 74 Resp 17 B/P (MAP) 180/82 (114) O2 Delivery Room Air Capillary Refill : Less Than 3 Seconds Height, Weight, BMI Height: 5'0" Weight: 171lbs. 8.0oz. 77.893252gw; 28.00 BMI Method:Stated General Appearance: No Apparent Distress, WD/WN Eyes: Bilateral Eye Normal Inspection, Bilateral Eye PERRL, Bilateral Eye EOMI HEENT: Other (yellowish-green ecchymosis and hematoma periorbital and to the right side of forehead) Neck: Full Range of Motion, Normal Inspection Respiratory: No Accessory Muscle Use, No Respiratory Distress Cardiovascular: Regular Rate, Rhythm, Normal Peripheral Pulses Gastrointestinal: Normal Bowel Sounds, Non Tender, Soft Extremity: Normal Capillary Refill, Normal Inspection Neurologic/Psychiatric: Alert, Oriented x3 Skin: Normal Color, Warm/Dry Procedures/Interventions Suture Size: 3-0 Progress/Results/Core Measures Suspected Sepsis Recent Fever Within 48 Hours: No Infection Criteria Present: None New/Unexplained Altered Menta: No Sepsis Screen: No Definite Risk SIRS Temperature: Pulse: 74 Respiratory Rate: 17 Laboratory Tests 10/16/19 13:33: White Blood Count 5.0 Blood Pressure 180 /82 Mean: 114 Laboratory Tests 10/16/19 13:33: Creatinine 0.90, Platelet Count 241, Total Bilirubin 0.4 Results/Orders Lab Results Laboratory Tests Test 10/16/19 13:33 10/16/19 14:17 Range/Units White Blood Count 5.0 4.3-11.0 10^3/uL Red Blood Count 4.19 L 4.35-5.85 10^6/uL Hemoglobin 13.1 11.5-16.0 G/DL Hematocrit 40 35-52 % Mean Corpuscular Volume 95 80-99 FL Mean Corpuscular Hemoglobin 31 25-34 PG Mean Corpuscular Hemoglobin Concent 33 32-36 G/DL Red Cell Distribution Width 12.7 10.0-14.5 % Platelet Count 241 130-400 10^3/uL Mean Platelet Volume 10.6 H 7.4-10.4 FL Neutrophils (%) (Auto) 65 42-75 % Lymphocytes (%) (Auto) 23 12-44 % Monocytes (%) (Auto) 9 0-12 % Eosinophils (%) (Auto) 1 0-10 % Basophils (%) (Auto) 1 0-10 % Neutrophils # (Auto) 3.3 1.8-7.8 X 10^3 Lymphocytes # (Auto) 1.2 1.0-4.0 X 10^3 Monocytes # (Auto) 0.5 0.0-1.0 X 10^3 Eosinophils # (Auto) 0.1 0.0-0.3 10^3/uL Basophils # (Auto) 0.1 0.0-0.1 10^3/uL Sodium Level 137 135-145 MMOL/L Potassium Level 3.9 3.6-5.0 MMOL/L Chloride Level 101 98-107 MMOL/L Carbon Dioxide Level 26 21-32 MMOL/L Anion Gap 10 5-14 MMOL/L Blood Urea Nitrogen 17 7-18 MG/DL Creatinine 0.90 0.60-1.30 MG/DL Estimat Glomerular Filtration Rate 60 BUN/Creatinine Ratio 19 Glucose Level 143 H 70-105 MG/DL Calcium Level 9.5 8.5-10.1 MG/DL Corrected Calcium 9.6 8.5-10.1 MG/DL Total Bilirubin 0.4 0.1-1.0 MG/DL Aspartate Amino Transf (AST/SGOT) 20 5-34 U/L Alanine Aminotransferase (ALT/SGPT) 8 0-55 U/L Alkaline Phosphatase 38 L 40-136 U/L Total Protein 7.1 6.4-8.2 GM/DL Albumin 3.9 3.2-4.5 GM/DL Urine Color YELLOW Urine Clarity CLEAR Urine pH 7.5 5-9 Urine Specific [place] 1.010 L 1.016-1.022 Urine Protein NEGATIVE NEGATIVE Urine Glucose (UA) NEGATIVE NEGATIVE Urine Ketones NEGATIVE NEGATIVE Urine Nitrite NEGATIVE NEGATIVE Urine Bilirubin NEGATIVE NEGATIVE Urine Urobilinogen 0.2 < = 1.0 MG/DL Urine Leukocyte Esterase 2+ H NEGATIVE Urine RBC (Auto) NEGATIVE NEGATIVE Urine RBC 0-2 /HPF Urine WBC 10-25 H /HPF Urine Squamous Epithelial Cells 0-2 /HPF Urine Crystals PRESENT H /LPF Urine Amorphous Sediment FEW ANA PHOSPHATE H /LPF Urine Bacteria TRACE /HPF Urine Casts NONE /LPF Urine Mucus NEGATIVE /LPF Urine Culture Indicated YES My Orders Orders - RM,PETER J CARDIOPULMONARY TECHNOLOGIST Cbc With Automated Diff (10/16/19 12:51) Comprehensive Metabolic Panel (10/16/19 12:51) Ua Culture If Indicated (10/16/19 12:51) Ct Head Wo (10/16/19 12:51) Urine Culture (10/16/19 14:17) Ceftriaxone For Im Use (Rocephin For Im (10/16/19 15:00) Lidocaine 1% Inj 20 Ml (Xylocaine 1% Inj (10/16/19 15:00) Vital Signs/I&O 10/16/19 13:01 Temp 36.8 Pulse 74 Resp 17 B/P (MAP) 180/82 (114) O2 Delivery Room Air Capillary Refill : Less Than 3 Seconds Blood Pressure Mean: 114 Diagnostic Imaging Diagonstic Imaging: Xray Comments NAME: LUIS LI [facility] REC#: [id number] PT STATUS: REG ER : 1935 PHYSICIAN: GIL RM APRN ADMIT DATE: 10/16/19/ER Signed Date of Exam:10/16/19 CT HEAD WO EXAMINATION: CT head without contrast. TECHNIQUE: Multiple contiguous axial images were obtained through the brain without the use of intravenous contrast. All CT scans use one or more of the following dose optimizing techniques: automated exposure control, MA and/or KvP adjustment based on a patient size and exam type, or iterative reconstruction. HISTORY: Continued facial pain. Fall one week ago. Scalp contusion. COMPARISON: 10/09/2019. FINDINGS: No large acute territorial ischemia, mass, or hemorrhage. No midline shift or mass effect. Decreased attenuation is seen in the periventricular and subcortical white matter. The ventricles and cortical sulci are prominent. The basilar cisterns are patent and unremarkable. The orbits are normal. Paranasal sinuses are normal. Mastoid air cells are clear. The scalp contusion overlying the right forehead has decreased in size compared to the prior exam. No osseus lesions or fractures are seen. IMPRESSION: 1. No large acute territorial ischemia, mass, or hemorrhage. 2. Chronic microvascular disease. 3. Generalized parenchymal volume loss. 4. Interval decrease in size in the scalp hematoma overlying the right forehead. Dictated by: Dictated on workstation # [id number] Dict: 10/16/19 1413 Trans: 10/16/19 1418 [id number] Interpreted by: RANDI RAHMAN DO Electronically signed by: RANDI RAHMAN DO 10/16/19 1418 Departure Impression Primary Impression: UTI (urinary tract infection) Qualified Codes: N30.00 - Acute cystitis without hematuria Disposition: HOME, SELF-CARE Condition: Stable Departure-Patient Inst. Decision time for Depature: 14:54 Referrals: EUGENIA DYER DO (PCP/Family) Primary Care Physician Patient Instructions: Urinary Tract Infection, Adult (DC) Add. Discharge Instructions: All discharge instructions reviewed with patient and/or family. Voiced understanding. GIL RM CARDIOPULMONARY TECHNOLOGIST Oct 16, 2019 13:32
[2019-10-16 13:40] LABS: BASOPHILS # (AUTO) 0.1 10^3/uL (0.0-0.1); BASOPHILS % (AUTO) 1 % (0-10); EOSINOPHILS # (AUTO) 0.1 10^3/uL (0.0-0.3); EOSINOPHILS % (AUTO) 1 % (0-10); HEMATOCRIT 40 % (35-52); HEMOGLOBIN 13.1 G/DL (11.5-16.0); LYMPHOCYTES # (AUTO) 1.2 X 10^3 (1.0-4.0); LYMPHOCYTES % (AUTO) 23 % (12-44); MEAN CORPUSCULAR HEMOGLOBIN 31 PG (25-34); MEAN CORPUSCULAR HGB CONC 33 G/DL (32-36); MEAN CORPUSCULAR VOLUME 95 FL (80-99); MEAN PLATELET VOLUME 10.6 FL (7.4-10.4); MONOCYTES # (AUTO) 0.5 X 10^3 (0.0-1.0); MONOCYTES % (AUTO) 9 % (0-12); NEUTROPHILS # (AUTO) 3.3 X 10^3 (1.8-7.8); NEUTROPHILS % (AUTO) 65 % (42-75); PLATELET COUNT 241 10^3/uL (130-400); RED CELL DISTRIBUTION WIDTH 12.7 % (10.0-14.5)
[2019-10-16 13:51] LABS: ALBUMIN 3.9 GM/DL (3.2-4.5); POTASSIUM 3.9 MMOL/L (3.6-5.0)
[2019-10-16 13:52] LABS: CALCIUM 9.5 MG/DL (8.5-10.1)
[2019-10-16 13:53] LABS: TOTAL PROTEIN 7.1 GM/DL (6.4-8.2)
[2019-10-16 13:55] LABS: BILIRUBIN,TOTAL 0.4 MG/DL (0.1-1.0)
[2019-10-16 13:57] LABS: CREATININE SERUM 0.9 MG/DL (0.60-1.30)
--- NOTE | 2019-10-16 14:20 | Diagnostic Imaging Report ---
EXAMINATION: CT head without contrast. TECHNIQUE: Multiple contiguous axial images were obtained through the brain without the use of intravenous contrast. All CT scans use one or more of the following dose optimizing techniques: automated exposure control, MA and/or KvP adjustment based on a patient size and exam type, or iterative reconstruction. HISTORY: Continued facial pain. Fall one week ago. Scalp contusion. COMPARISON: 10/09/2019. FINDINGS: No large acute territorial ischemia, mass, or hemorrhage. No midline shift or mass effect. Decreased attenuation is seen in the periventricular and subcortical white matter. The ventricles and cortical sulci are prominent. The basilar cisterns are patent and unremarkable. The orbits are normal. Paranasal sinuses are normal. Mastoid air cells are clear. The scalp contusion overlying the right forehead has decreased in size compared to the prior exam. No osseus lesions or fractures are seen. IMPRESSION: 1. No large acute territorial ischemia, mass, or hemorrhage. 2. Chronic microvascular disease. 3. Generalized parenchymal volume loss. 4. Interval decrease in size in the scalp hematoma overlying the right forehead. Dictated by: Dictated on workstation # [id number]
[2019-10-16 14:29] LABS: BILIRUBIN,URINE NEGATIVE (NEGATIVE); CLARITY,URINE CLEAR; COLOR,URINE YELLOW; GLUCOSE, URINE (UA) NEGATIVE (NEGATIVE); KETONES,URINE NEGATIVE (NEGATIVE); LEUKOCYTE ESTERASE ,URINE 2+ (NEGATIVE); NITRITE,URINE NEGATIVE (NEGATIVE); PH,URINE 7.5 (5-9); PROTEIN,URINE NEGATIVE (NEGATIVE)
[2019-10-16 14:40] LABS: BACTERIA,URINE TRACE /HPF; RBC,URINE 0-2 /HPF; SQUAMOUS EPITHELIAL CELL,UR 0-2 /HPF
[2019-10-16 14:41] LABS: AMORPHOUS SEDIMENT,UR FEW AMOR PHOSPHATE /LPF
[2019-10-16] MEDS ORDERED: CEFU250T80 PO (14:58)
[2019-10-16] MEDS ORDERED: LIDOCAINE 1% INJ 20 ML 20 ML VIAL INJ ONE (15:00)
[2019-10-16] MEDS ORDERED: cefTRIAXone 1,000 MG/2.86 ml vial (IM ONLY) IM SCH (15:00)
[2019-10-16 15:05] VITALS: BP 142/77
--- OUTSIDE RECORDS SUMMARY | 2019-10-16 17:05 | XMS REPORT ---
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 [facility] Organization [email or web address] [facility] Address [address] [place] [address] Care Team Providers Care Key Person Name Role Phone EUGENIA DYER Unavailable EUGENIA DYER DO Unavailable Unavailable EUGENIA DYER Unavailable EUGENIA DYER DO Unavailable Unavailable EUGENIA DYER PCP ROSEANN BLAIR, CRISS Carpio Unavailable Unavailable STAS BLAIR, EMILY Rollins Unavailable Unavailable GIL RM APRN Unavailable Unavailable Unavailable Unavailable Unavailable Unavailable Unavailable Unavailable Allergies No Information Encounters Encounter Date Encounter Type Encounter Diagnosis Care Provider Facility Start: Patient encounter EUGENIA DYER DO [facility] Via 10-15-2019 [facility] Start: Emergency department EMILY MCCLELLAND MD V Via 10-09-2019 patient visit [facility] End: 10-09-2019 Start: Patient encounter GIL RM APRN [facility] Via [facility] 10-09-2019 [facility] Start: Patient encounter EUGENIA DYER DO [facility] [place] 10-08-2019 [facility] Start: Patient encounter EUGENIA DYER DO [facility] Via [place] 10-04-2019 [facility] Start: Patient encounter EUGENIA DYER DO [facility] Via [place] 06-21-2019 [facility] Start: Patient encounter CRISS WHITFIELD MD [facility] Via [facility] Emergency Department 03-07-2019 [facility] ([id number]) Start: Patient encounter EUGENIA DYER DO [facility] Vi a [facility] 02-18-2019 [facility] ([id number]) Start: Patient encounter EUGENIA DYER DO [facility] Vi a 02-15-2019 [facility] ([id number]) Start: Patient encounter EUGENIA DYER DO [facility] 01-18-2019 [facility] ([id number]) Start: Patient encounter EUGENIA STOCKLIVAN DO [facility] 01-18-2019 [facility] ([id number]) Start: Patient encounter EUGENIA STOCKLIVAN DO [facility] a [facility] 11-13-2018 [facility] ([id number]) Start: Discharged Recurring EUGENIA Gaytan nsion Via [place] 11-02-2018 Work Phone: [facility] [phone]) End: 11-14-2018 Start: Patient encounter EUGENIA STOCKLIVAN DO [facility] 11-02-2018 [facility] ([id number]) End: 11-13-2018 Start: Patient encounter EUGENIA STOCKLIVAN DO [facility] a [place] 11-02-2018 [facility] ([id number]) End: 11-12-2018 Start: Patient encounter EUGENIA STOCKLIVAN DO [facility] Vi a 10-29-2018 [facility] ([id number]) Start: Patient encounter EUGENIA STOCKLIVAN DO [facility] Vi a [place] 10-24-2018 [facility] ([id number]) Start: Patient encounter EUGENIA STOCKLIVAN DO [facility] Vi a [place] 10-17-2018 [facility] ([id number]) Start: Patient encounter EUGENIA STOCKLIVAN DO [facility] Vi a 10-17-2018 [facility] ([id number]) Start: Patient encounter EUGENIA STOCKLIVAN DO [facility] Vi a [place] 10-10-2018 [facility] ([id number]) Start: Patient encounter EUGENIA STOCKLIVAN DO [facility] Vi a [place] 10-03-2018 [facility] ([id number]) Start: Patient encounter EUGENIA SOTCKLIVAN DO [facility] Vi a [place] 10-01-2018 [facility] ([id number]) Start: Patient encounter EUGENIA STOCKLIVAN DO [facility] Vi a 09-27-2018 [facility] ([id number]) Start: Patient encounter EUGENIA STOCKLIVAN DO [facility] Vi a [place] 09-25-2018 [facility] ([id number]) Start: Patient encounter EUGENIA STOCKLIVAN DO [facility] Vi a [place] 09-20-2018 [facility] ([id number]) Start: Patient encounter EUGENIA DYER DO [facility] Vi a 09-20-2018 procedure [facility] ([id number]) Start: Patient encounter EUGENIA DYER DO [facility] Vi a [place] 09-17-2018 procedure [facility] ([id number]) Start: Patient encounter EUGENIA DYER DO [facility] Vi a 09-14-2018 [facility] ([id number]) Start: Patient encounter EUGENIA DYER DO [facility] Vi a 09-11-2018 procedure [facility] ([id number]) Start: Patient encounter EUGENIA DYER DO [facility] Vi a 09-06-2018 [facility] ([id number]) Start: Patient encounter EUGENIA DYER DO [facility] Vi a 09-03-2018 procedure [facility] ([id number]) Start: Patient encounter EUGENIA DYER DO [facility] Vi a 08-30-2018 [facility] ([id number]) Start: Patient encounter EUGENIA DYER DO [facility] Vi a [place] 08-29-2018 procedure [facility] ([id number]) Start: Patient encounter EUGENIA DYER DO [facility] Vi a 08-17-2018 procedure [facility] ([id number]) Start: Patient encounter EUGENIA DYER DO Not Av ailable ([id number]) 03-05-2018 procedure Start: Patient encounter CRISS WHITFIELD MD Not Availab le ([id number]) 02-13-2018 procedure Start: Patient encounter LIGIA ARAUJO Not Availab le ([id number]) 01-22-2018 procedure Start: Patient encounter EUGENIA DYER 01-03-2018 procedure End: 01-04-2018 Start: Patient encounter EUGENIA DYER 11-29-2017 procedure End: 11-30-2017 Start: Patient encounter NA NA Not Availab le ([id number]) 10-10-2017 procedure Start: Patient encounter 07-13-2017 procedure Start: Patient encounter 06-26-2017 procedure Start: Patient encounter 04-28-2017 procedure End: 04-28-2017 Start: Patient encounter EUGENIA DYER DO Not Av ailable ([id number]) 04-26-2017 procedure Start: Patient encounter EUGENIA DYER DO Not Av ailable ([id number]) 04-19-2017 procedure Start: Patient encounter EUGENIA DYER DO Not Av ailable ([id number]) 04-04-2017 procedure Start: Patient encounter EUGENIA DYER DO Not Av ailable ([id number]) 04-04-2017 procedure Start: Patient encounter EUGENIA DYER DO Not Av ailable ([id number]) 03-29-2017 procedure End: 04-03-2017 Start: Patient encounter EUGENIA DYER DO Not Av ailable ([id number]) 03-28-2017 procedure Start: Patient encounter EUGENIA DYER DO Not Av ailable ([id number]) 03-22-2017 procedure Start: Patient encounter EUGENIA DYER DO Not Av ailable ([id number]) 03-20-2017 procedure Start: Patient encounter EUGENIA DYER DO Not Av ailable ([id number]) 03-16-2017 procedure Start: Patient encounter EUGENIA DYER DO Not Av ailable ([id number]) 03-14-2017 procedure Start: Patient encounter EUGENIA DYER DO Not Av ailable ([id number]) 03-10-2017 procedure Start: Patient encounter EUGENIA DYER DO Not Av ailable ([id number]) 03-08-2017 procedure Start: Patient encounter EUGENIA DYER DO Not Av ailable ([id number]) 03-03-2017 procedure Start: Patient encounter 02-28-2017 procedure Start: Patient encounter 02-28-2017 procedure Start: Patient encounter 02-28-2017 procedure Start: Patient encounter EUGENIA DYER DO Not Av ailable ([id number]) 02-21-2017 procedure Start: Patient encounter EUGENIA DYER DO Not Av ailable ([id number]) 02-20-2017 procedure Start: Patient encounter EUGENIA DYER DO Not Av ailable ([id number]) 02-17-2017 procedure Start: Patient encounter EUGENIA DYER DO Not Av ailable ([id number]) 02-14-2017 procedure Start: Patient encounter EUGENIA DYER DO Not Av ailable ([id number]) 02-09-2017 procedure Start: Patient encounter EUGENIA DYER DO Not Av ailable ([id number]) 02-03-2017 procedure Start: Patient encounter EUGENIA DYER DO Not Av ailable ([id number]) 01-31-2017 procedure Start: Patient encounter EUGENIA DYER DO Not Av ailable ([id number]) 01-24-2017 procedure Start: Patient encounter EUGENIA DYER DO Not Av ailable ([id number]) 01-17-2017 procedure Start: Patient encounter EUGENIA DYER DO Not Av ailable ([id number]) 2017 procedure Start: Patient encounter EUGENIA DYER DO Not Av ailable ([id number]) 01-10-2017 procedure Start: Patient encounter EUGENIA DYER DO Not Av ailable ([id number]) 01-05-2017 procedure Start: Patient encounter 01-03-2017 procedure Start: Patient encounter 12-30-2016 procedure End: 12-31-2016 Start: Patient encounter EUGENIA DYER DO Not Av ailable ([id number]) 12-22-2016 procedure Start: Patient encounter EUGENIA DYER DO Not Av ailable ([id number]) 11-30-2016 procedure Start: Patient encounter 11-10-2016 procedure Start: Patient encounter EUGENIA DYER DO Not Av ailable ([id number]) 10-05-2016 procedure Start: Patient encounter EUGENIA DYER DO Not Av ailable ([id number]) 05-06-2016 procedure Start: Patient encounter EUGENIA DYER DO Not Av ailable ([id number]) 05-06-2016 procedure Start: Patient encounter EUGENIA DYER DO Not Av ailable ([id number]) 04-28-2016 procedure Start: Patient encounter EUGENIA DYER DO Not Av ailable ([id number]) 04-28-2016 procedure Start: Patient encounter 04-22-2016 procedure Start: Patient encounter 02-02-2016 procedure Start: Patient encounter 12-22-2015 procedure Start: Patient encounter 11-20-2015 procedure Start: Patient encounter 11-12-2015 procedure Start: Patient encounter 11-10-2015 procedure Start: Patient encounter EUGENIA DYER DO Not Av ailable ([id number]) 08-21-2015 procedure End: 09-02-2015 Start: Patient encounter 12-16-2014 procedure End: 12-16-2014 Patient encounter NA NA [facility] Medical Equipment No Information Goals No Information 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s Immunizatio 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 Notes Care Provider Facility n Date 10-09-2019 tetanus toxoid, NA NA [facility] Via [facility] toxoid, and acellular (23906) pertussis vaccine, adsorbed Interventions No Information Medications Medication Drug Dates Sig Sig (Original) Class(es) (Normalized) Calcium Calcium Carbonate/Vitamin D 3 (Calcium Carbonate/Vitamin D3 600 + D Tablet) 1 Each Tabl et 1 Each (Calcium 600 + D Tablet) ORAL Daily 1 Each Tablet (1 source) Pantoprazole Sodium 40 take 1 tablet Pantoprazole Sodium 40 Mg Tablet.dr 40 Mg Tablet.dr by mouth once Mg ORAL Daily (3 sources) daily Payers Date Payer Normalized Payer [id number] Plan of Treatment Date Care Activity Detail Author Start: Patient encounter Not Available (0000 0) 01-22-2018 Problems Active Problems Problem Problem Date Last Documented Episodic/Chr Provider Classificati Recorded Date onic on Allergic Allergy status to other drugs, 10-12-2019 Episodic NA NA reactions medicaments and biological (6 sources) substances status Anxiety Anxiety state, unspecified Chronic disorders (3 sources) Coma; Coma scale, eyes open, spontaneous, 10-12-2019 Epi sodic GIL RM stupor; and at arrival to emergency department 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 UI 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 brain damage ; Translations: [Coma scale , best (3 sources) verbal response, oriented, at arrival to emergency department] Congestive Chronic diastolic heart failure ; Ch ronic heart Translations: [Heart failur e, failure; unspecified] nonhypertens cinthya (13 sources) Coronary Presence of coronary angioplasty 10-12-2019 Episodic atherosclero implant and graft ; Transla tions: sis and [ATHSCL HEART DISEASE OF NA TIVE other heart CORONARY ] disease (9 sources) Disorders of Pure hypercholesterolemia, 10-12-2019 Chr onic lipid unspecified ; Translations: [Other metabolism and unspecified hyperlipide daniel] (20 sources) E Codes: Fall on same level from slipping, 10-12-2019 Episo dic GIL RM Fall tripping and stumbling with JAVASCRIPT UI DEVELOPER (1 source) subsequent striking against other object, initial encounter Esophageal Gastro-esophageal reflux disease 10-12-2019 Chronic disorders without esophagitis ; Trans lations: (21 sources) [Esophageal reflux] Heart valve Pulmonary valve disorders ; Chronic disorders Translations: [Rheumatic di sorders (9 sources) of both mitral and tricuspi d valves] 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-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 DYER DO screening Staphylococcus aureus ; for Translations: [Encounter fo r infectious immunization] disease (3 sources) Malaise and Other malaise and fatigue Episodic fatigue (3 sources) Occlusion or Occlusion and stenosis of bilateral Chronic stenosis of carotid arteries precerebral arteries (3 sources) Open wounds Laceration without foreign body of 10-12-2019 Epis odic GIL RM of head; other part of head, initial JAVASCRIPT UI DEVELOPER neck; and encounter trunk (1 source) Osteoarthrit Unspecified osteoarthritis, Chronic is unspecified site (6 sources) Osteoporosis Age-related osteoporosis without Chronic EUGENIA (5 sources) current pathological fracture SULLI VAN DO Other detention (current) use of 10-12-2019 Episodic NA NA aftercare antithrombotics/antiplatele ts ; (6 sources) Translations: [COMPONENT INSPECTOR (C URRENT) USE OF ASPIRIN] Other detention (current) use of aspirin 10-12-2019 Episodic aftercare (12 sources) Other Long-term (current) use of other Epi sodic aftercare medications (3 sources) Other and Cardiomegaly Chronic ill-defined heart disease (7 sources) Other Presence of left artificial knee Chr onic connective joint tissue disease (7 sources) Other Cyst of kidney, acquired Episodic GIANNI IQRA diseases of DYER DO kidney and ureters (9 sources) Other History of falling Episodic injuries and conditions due to external causes (6 sources) Other lower Solitary pulmonary nodule Episodic respiratory disease (8 sources) Other lower Solitary pulmonary nodule Episodic respiratory disease (3 sources) Other lower Hypoxemia Episodic respiratory disease (4 sources) Other Pain in right hip Episodic non-traumati c joint disorders (6 sources) Other Encounter for screening mammogram Ep isodic screening for malignant neoplasm of b reast for suspected conditions (not mental disorders or infectious disease) (3 sources) Other upper Epistaxis 10-12-2019 Episodic GIL RM respiratory JAVASCRIPT UI DEVELOPER disease (1 source) Dedra-; Endocarditis, valve unspecified Cutter Hand ian endo-; and myocarditis; cardiomyopat hy (except that caused by tuberculosis or sexually transmitted disease) (6 sources) Peripheral Atherosclerosis of aorta Chronic and visceral atherosclero sis (3 sources) Pulmonary Primary pulmonary hypertension ; Chr onic heart Translations: [Other chroni c disease pulmonary heart diseases] (21 sources) Residual Obstructive sleep apnea (adult) Cutter Hand ian codes; (pediatric) unclassified (23 sources) Residual Sleep apnea, unspecified ; Chronic codes; Translations: [ACQUIRED ABS ENCE OF unclassified BOTH CERVIX AND UTER] (16 sources) Residual Unspecified sleep apnea Chronic codes; unclassified (3 sources) Residual Patient's other noncompliance with Episodic NA NA codes; medication regimen ; Transl ations: unclassified [ACQUIRED ABSENCE OF BOTH C ERVIX (5 sources) AND UTER] Residual Family history of ischemic heart 10-12-2019 Episod ic GIL RM codes; disease and other diseases of the A PRN unclassified circulatory system (1 source) Spondylosis; Spinal stenosis, lumbar region 10-08-2019 Episodic intervertebr without neurogenic claudica tion ; al disc Translations: [Pain in thor acic disorders; spine] other back problems (24 sources) Thyroid Nontoxic multinodular goiter Chronic EUGENIA disorders DYER DO (6 sources) Past or Other Problems Problem Problem Date Last Documented Episodic/Chr Provider Classificati Recorded Date onic on E Codes: Exposure to other specified Episodic Natural/envi factors, initial encounter ronment (7 sources) E Codes: Other external cause status Episodic Unspecified (7 sources) Other detention (current) use of insulin E pisodic aftercare (5 sources) Other bone Other specified disorders of bone Episodic EUGENIA disease and density and structure, multiple SUL CHESTER DO musculoskele sites analilia deformities (6 sources) Other Constipation, unspecified Episodic WI LLIAM gastrointest DYER DO inal disorders (2 sources) Other Unspecified injury of left lower Epi sodic injuries and leg, initial encounter conditions due to external causes (7 sources) Other upper Other specified disorders of nose Ep isodic respiratory and nasal sinuses disease (3 sources) 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 Results Test Name Value Interpreta Reference Facilit Date tion Range y Time laboratory on 2019-10-16 Albumin [Mass/Vol] 3.9 g/dL Negative 3.2-4.5 PENDING 10-01 5-2 g/dL [facility] 09:33-0 ([id number]) 400 ALP [Catalytic 38 U/L Low 40-136 U/L PENDING 10-15- activity/Vol] [facility] 09:33-0 ([id number]) 400 ALT [Catalytic 8 U/L Negative 0-55 U/L PENDING activity/Vol] [facility] [[email or web address] 09:33-0 ([id number]) 400 Amorphous sediment FEW ANA PHOSPHATE Abnormal PENDING LM Ql (Urine sed) [facility] 020 [facility] [[email or web address]] 10:17-0 ([id number]) 400 Anion gap 10 mmol/L Negative 5-14 PENDING [Moles/Vol] mmol/L [facility] 020 [facility] [[email or web address]] 09:33-0 ([id number]) 400 AST [Catalytic 20 U/L Negative 5-34 U/L PENDING activity/Vol] [facility] 020 [facility] [[email or web address]] 09:33-0 ([id number]) 400 Bacteria LM Ql TRACE Invalid PENDING (Urine sed) Interpreta [facility] 020 tion Code [facility] [[email or web address]] 10:17-0 ([id number]) 400 Basophils (Bld) 0.1 10*3/uL Negative 0.0-0.1 PENDING 10-15 [#/Vol] 10*3/uL [facility] [address] [place] [address] 09:33-0 ([id number]) 400 Basophils/100 WBC 1 % Negative 0-10 % PENDING 10-15 (Bld) [facility] 020 [facility] [[email or web address]] 09:33-0 ([id number]) 400 Bilirubin [Mass/Vol] 0.4 mg/dL Negative 0.1-1.0 PENDING mg/dL [facility] [address] [place] [address] 09:33-0 ([id number]) 400 Bilirubin Ql (U) Negative Invalid NEGATIVE PENDING Interpreta [facility] 020 tion Code [facility] [[email or web address]] 10:17-0 ([id number]) 400 Calcium [Mass/Vol] 9.5 mg/dL Negative 8.5-10.1 PENDING 07-1 5-2 mg/dL [facility] 020 [facility] [[email or web address]] 09:33-0 ([id number]) 400 Calcium [Mass/Vol] 9.6 mg/dL Negative 8.5-10.1 PENDING 07-1 5-2 mg/dL [facility] 020 [facility] [[email or web address]] 09:33-0 ([id number]) 400 Casts LM Ql (Urine NONE Invalid PENDING sed) Interpreta [facility] 020 tion Code [facility] 10:17-0 ([id number]) 400 Chloride [Moles/Vol] 101 mmol/L Negative 98-107 PENDING 0 -15-2 mmol/L [facility] 09:33-0 ([id number]) 400 Clarity (U) CLEAR Invalid PENDING Interpreta [facility] 020 tion Code [facility] 10:17-0 ([id number]) 400 CO2 [Moles/Vol] 26 mmol/L Negative 21-32 PENDING mmol/L [facility] 09:33-0 ([id number]) 400 Color (U) YELLOW Invalid PENDING Interpreta [facility] 020 tion Code [facility] 10:17-0 ([id number]) 400 Creatinine 0.90 mg/dL Negative 0.60-1.30 PENDING [Mass/Vol] mg/dL [facility] 09:33-0 ([id number]) 400 Creatinine and 60 Invalid PENDING Glomerular Interpreta [facility] 020 filtration tion Code N [facility] 09:33-0 rate.predicted panel ([id number]) 400 - Serum, Plasma or Blood Crystals LM Ql PRESENT Abnormal PENDING (Urine sed) [facility] 10:17-0 ([id number]) 400 Eosinophils (Bld) 0.1 10*3/uL Negative 0.0-0.3 PENDING [#/Vol] 10*3/uL [facility] 09:33-0 ([id number]) 400 Eosinophils/100 WBC 1 % Negative 0-10 % PENDING (Bld) [facility] 09:33-0 ([id number]) 400 Epithelial 0-2 Invalid PENDING cells.squamous LM Ql Interpreta [facility] 020 (Urine sed) tion Code N [facility] 10:17-0 ([id number]) 400 Erythrocyte 12.7 % Negative 10.0-14.5 PENDING distribution width % [facility] 0[facility] (RBC) [Ratio] [facility] 09:33-0 ([id number]) 400 Glucose [Mass/Vol] 143 mg/dL High 70-105 PENDING 10-01 5-2 mg/dL [facility] 020 [facility] [[email or web address]] 09:33-0 ([id number]) 400 Glucose Auto test Negative Invalid NEGATIVE PENDING 10-15 strip Ql (U) Interpreta [facility] 020 tion Code [facility] [[email or web address]] 10:17-0 ([id number]) 400 Hematocrit (Bld) 40 % Negative 35-52 % PENDING [Volume fraction] [facility] [[email or web address]] 09:33-0 ([id number]) 400 Hemoglobin (Bld) 13.1 g/dL Negative 11.5-16.0 PENDING [Mass/Vol] g/dL [address] 09:33-0 ([id number]) 400 Ketones Auto test Negative Invalid NEGATIVE PENDING 10-15 strip Ql (U) [facility] [[email or web address] 10:17-0 ([id number]) 400 Leukocyte esterase 2+ Abnormal NEGATIVE PENDING 10-01 Test strip Ql (U) [facility] 10:17-0 ([id number]) 400 Lymphocytes (Bld) 1.2 10*3/uL Negative 1.0-4.0 PENDING [#/Vol] 10*3 [facility] [address] [place] [address] 09:33-0 ([id number]) 400 Lymphocytes/100 WBC 23 % Negative 12-44 % PENDING (Bld) [address] 09:33-0 ([id number]) 400 MCH (RBC) [Entitic 31 pg Negative 25-34 pg PENDING 10-01-2 mass] [facility] [address] [place] [address] 09:33-0 ([id number]) 400 MCHC (RBC) 33 g/dL Negative 32-36 g/dL PENDING [Mass/Vol] [facility] [address] [place] [address] 09:33-0 ([id number]) 400 MCV (RBC) [Entitic 95 Negative 80-99 PENDING 10-01 5-2 vol] [foz_us] [facility] [address] [place] [address] 09:33-0 ([id number]) 400 Monocytes (Bld) 0.5 10*3/uL Negative 0.0-1.0 PENDING 10-15 [#/Vol] 10*3 [facility] 020 [facility] [[email or web address]] 09:33-0 ([id number]) 400 Monocytes/100 WBC 9 % Negative 0-12 % PENDING 10-15 (Bld) [facility] 020 [facility] [[email or web address]] 09:33-0 ([id number]) 400 Mucus Ql (Urine sed) Negative Invalid PENDING 10-15 Interpreta [facility] 020 tion Code [facility] 10:17-0 ([id number]) 400 Neutrophils (Bld) 3.3 10*3/uL Negative 1.8-7.8 PENDING [#/Vol] 10*3 [facility] 020 [facility] [[email or web address]] 09:33-0 (89793) 400 Neutrophils/100 WBC 65 % Negative 42-75 % PENDING (Bld) [facility] 020 [facility] [[email or web address]] 09:33-0 (33497) 400 Nitrite Ql (U) Negative Invalid NEGATIVE PENDING Interpreta [facility] 020 tion Code [facility] [[email or web address]] 10:17-0 ([id number]) 400 pH (U) 7.5 [pH] Invalid 5-9 PENDING Interpreta [facility] 020 tion Code [facility] [[email or web address]] 10:17-0 ([id number]) 400 Platelet mean volume 10.6 High 7.4-10.4 PENDING (Bld) [Entitic vol] [foz_us] [facility] 020 [facility] [[email or web address]] 09:33-0 ([id number]) 400 Platelets (Bld) 241 10*3/uL Negative 130-400 PENDING 10-15 [#/Vol] 10*3/uL [facility] 020 [facility] [[email or web address]] 09:33-0 ([id number]) 400 Potassium 3.9 mmol/L Negative 3.6-5.0 PENDING [Moles/Vol] mmol/L [facility] 020 [facility] [[email or web address]] 09:33-0 ([id number]) 400 Protein [Mass/Vol] 7.1 g/dL Negative 6.4-8.2 PENDING - 5-2 g/dL [facility] 020 [facility] [[email or web address]] 09:33-0 ([id number]) 400 Protein Ql (U) Negative Invalid NEGATIVE PENDING Interpreta [facility] 020 tion Code [facility] [[email or web address]] 10:17-0 ([id number]) 400 RBC (Bld) [#/Vol] 4.19 10*6/uL Low 4.35-5.85 PENDING 10*6/uL [facility] 020 [facility] [[email or web address]] 09:33-0 ([id number]) 400 RBC LM.HPF (Urine Invalid PENDING sed) [#/Area] Interpreta [facility] 020 tion Code [facility] 10:17-0 ([id number]) 400 RBC Ql (U) Negative Invalid NEGATIVE PENDING Interpreta [facility] 020 tion Code [facility] 10:17-0 ([id number]) 400 Sodium [Moles/Vol] 137 mmol/L Negative 135-145 PENDING mmol/L [facility] 020 [facility] [[email or web address]] 09:33-0 ([id number]) 400 Specific gravity (U) 1.010 Low 1.016-1.02 PENDING 0 [Rel density] 2 [facility] 020 [facility] [[email or web address]] 10:17-0 ([id number]) 400 Urea nitrogen 17 mg/dL Negative 7-18 mg/dL PENDING [Mass/Vol] [facility] 020 [facility] [[email or web address]] 09:33-0 (02753) 400 Urea 19 mg/mg Invalid PENDING nitrogen/Creatinine Interpreta [facility] 020 [Mass ratio] tion Code [facility] [[email or web address]] 09:33-0 ([id number]) 400 Urinalysis complete YES Invalid PENDING W Reflex Culture Interpreta [facility] 020 panel - Urine tion Code [facility] [[email or web address]] 10:17-0 ([id number]) 400 Urobilinogen (U) 0.2 mg/dL Invalid < = 1.0 PENDING [Mass/Vol] Interpreta mg/dL [facility] 020 tion Code [facility] 10:17-0 ([id number]) 400 WBC (Bld) [#/Vol] 5.0 10*3/uL Negative 4.3-11.0 PENDING 10*3/uL [facility] [[email or web address] 09:33-0 ([id number]) 400 WBC LM.HPF (Urine Abnormal PENDING sed) [#/Area] [facility] 10:17-0 ([id number]) 400 Social History No Information Vital Signs The data below is from unstructured sources Vital Response Date/Time Temperature (Fahrenheit) 97.7 degree s F (97.6 - 99.5) 10/28/2015 11:02am Temperature (Calculated Celsius) 36. 49511 degrees C (36.4 - 37.5) 10/28/2015 11:02am Temperature Source Temporal 10/28/2015 11:02am Pulse Rate (adult) 66 bpm (60 - 90) 10/28/2015 11:02am Respiratory Rate 20 bpm (12 - 24) 10/28/2015 11:02am Blood Pressure 195/95 mm Hg 10/28/2015 11:02am Blood Pressure Mean 128 mm Hg 10/28/2015 11:02am Pain Numeric Pain Scale 0-No Pain 10/28/2015 11:02am Height (Feet) 5 feet 11:02am Height (Inches) 1.00 inches 10/28/2015 11:02am Height (Calculated Centimeters) 154. 695357 cm 10/28/2015 11:02am Weight (Pounds) 179 pounds 10/28/2015 11:02am Weight (Ounces) 8.0 oz 0 10/28/2015 11:02am Weight (Calculated Grams) 42490.812 gm 10/28/2015 11:02am Weight (Calculated Kilograms) 81.419 831 kilograms 10/28/2015 11:02am Calculated BMI 34.38 11:02am Capillary Refill Capillary Refill Less Than 3 Seconds 10/28/2015 11:02am Vital Response Date/Time Temperature (Fahrenheit) 97.8 degree s F (97.6 - 99.5) 12/16/2014 4:35pm Temperature (Calculated Celsius) 36. 87319 degrees C (36.4 - 37.5) 12/16/2014 4:10pm Temperature Source Temporal 12/16/2014 4:35pm Pulse Rate (adult) 61 bpm (60 - 90) 12/16/2014 4:35pm Respiratory Rate 18 bpm (12 - 24) 12/16/2014 4:35pm O2 Sat by Pulse Oximetry 100 % (88 - 100) 12/16/2014 4:35pm Blood Pressure 136/69 mm Hg 12/16/2014 4:35pm Blood Pressure Mean 91 mm Hg 12/16/2014 4:10pm Pain Pain Intensity 0 2014 10:54am Height (Feet) 5 feet 10:44am Height (Inches) 1.00 inches 12/16/2014 10:44am Height (Calculated Centimeters) 154. 393587 cm 12/16/2014 10:44am Weight (Pounds) 182 pounds 12/16/2014 10:44am Weight (Calculated Grams) 32560.812 gm 12/16/2014 10:44am Weight (Calculated Kilograms) 82.553 812 kilograms 12/16/2014 10:44am Calculated BMI 34.38 10:44am Vital Response Date/Time Temperature (Fahrenheit) 97.8 degree s F (97.6 - 99.5) Temperature (Calculated Celsius) 36. 95942 degrees C (36.4 - 37.5) Temperature Source Tympanic Pulse Rate (adult) 66 bpm (60 - 90) Respiratory Rate 20 bpm (12 - 24) O2 Sat by Pulse Oximetry 97 % (88 - 100) Blood Pressure 147/65 mm Hg Pain Pain Intensity 3 Height (Feet) 5 feet Height (Inches) 1.00 inches Height (Calculated Centimeters) 154. 049637 cm Weight (Pounds) 189 pounds Weight (Ounces) 8.0 oz Weight (Calculated Grams) 11225.755 gm Weight (Calculated Kilograms) 85.955 755 kilograms Calculated BMI 35.71 Vital Response Date/Time Temperature (Fahrenheit) 97.1 degree s F (97.6 - 99.5) Temperature (Calculated Celsius) 36. 84568 degrees C (36.4 - 37.5) Temperature Source Tympanic Pulse Rate (adult) 64 bpm (60 - 90) Respiratory Rate 20 bpm (12 - 24) O2 Sat by Pulse Oximetry 94 % (88 - 100) Blood Pressure 138/68 mm Hg Pain Pain Intensity 0 Height (Feet) 5 feet Height (Inches) 1.00 inches Height (Calculated Centimeters) 154. 600024 cm Weight (Pounds) 194 pounds Weight (Calculated Grams) 28139.921 gm Weight (Calculated Kilograms) 87.996 921 kilograms Calculated BMI 36.65 Vital Response Date/Time Temperature (Fahrenheit) 96.2 degree s F (97.6 - 99.5) 02/28/2017 7:50am Temperature (Calculated Celsius) 35. 95272 degrees C (36.4 - 37.5) 02/28/2017 7:50am Temperature Source Tympanic 02/28/2017 7:50am Pulse Rate (adult) 66 bpm (60 - 90) 02/28/2017 7:50am Respiratory Rate 18 bpm (12 - 24) 02/28/2017 7:50am O2 Sat by Pulse Oximetry 97 % (88 - 100) 02/28/2017 7:50am Blood Pressure 220/91 mm Hg 02/28/2017 7:50am Blood Pressure Mean 134 mm Hg (65 - 110) 02/28/2017 7:50am Pain Numeric Pain Scale 7 9:12am Height (Feet) 5 feet 7:50am Height (Inches) 0 inches 02/27/2017 7:26am Height (Calculated Centimeters) 152. 968699 cm 02/28/2017 7:50am Height Method Stated 7:50am Weight (Pounds) 171 pounds 02/28/2017 7:50am Weight (Calculated Kilograms) 77.564 296 kilograms 02/28/2017 7:50am Weight Method Stated 7:50am Capillary Refill Capillary Refill Less Than 3 Seconds 02/28/2017 7:50am Height 5 ft 0 in 017 7:50am Weight 171 lb 02/28/2017 7:50am Body Mass Index 33.4 kg/m^2 02/28/2017 7:50am Vital Response Date/Time Temperature (Fahrenheit) 96.6 degree s F (97.6 - 99.5) 10/10/2017 6:42am Temperature (Calculated Celsius) 35. 35777 degrees C (36.4 - 37.5) 10/10/2017 6:42am Pulse Rate (adult) 67 bpm (60 - 90) 10/10/2017 6:42am Respiratory Rate 20 bpm (12 - 24) 10/10/2017 6:42am O2 Sat by Pulse Oximetry 98 % (88 - 100) 10/10/2017 6:42am Blood Pressure 202/85 mm Hg 10/10/2017 6:42am Blood Pressure Mean 124 mm Hg (65 - 110) 10/10/2017 6:42am Height (Feet) 5 feet 01/2018 6:42am Height (Inches) 0 inches 10/10/2017 6:42am Height (Calculated Centimeters) 152. 615445 cm 10/10/2017 6:42am Height Method Stated 01/2018 6:42am Weight (Pounds) 171 pounds 10/10/2017 6:42am Weight (Ounces) 8.0 oz 0 10/10/2017 6:42am Weight (Calculated Grams) 23744.09 gm 10/10/2017 6:42am Weight (Calculated Kilograms) 77.791 092 kilograms 10/10/2017 6:42am Calculated BMI 34.38 01/2018 6:42am Weight Method Stated 01/2018 6:42am Capillary Refill Capillary Refill Less Than 3 Seconds 10/10/2017 6:42am No vital sign information available. Functional Status The data below is from unstructured sources Query Response Date Dangelo rded Patient Orientation Person Place Time Situation December 16, 2014 5:20pm Query Response Date Dangelo rded Comprehension Ability Understands Co ncepts May 02, 2014 7:55am Query Response Date Dangelo rded Patient Orientation Person Place Time Situation Normal For Age November 19, 2013 5:52pm No functional status information available. Mental Status No Information Advance Directives Directive Response Recor ded Date/Time Advance Directives No 11:05am Health Care Power of Construction Scheduler No 10/28/15 11:05am Organ Donor No 10/28/15 11:05am Resuscitation Status Full Code 10/28/15 11:05am Directive Response Recor ded Date/Time Advance Directives No 10:43am Health Care Power of Construction Scheduler No 12/16/14 10:43am Organ Donor No 12/16/14 10:43am Directive Response Recor ded Date/Time Advance Directives No 1:40am Health Care Power of Construction Scheduler No 05/01/14 8:06pm Organ Donor No 05/01/14 8:06pm Directive Response Recor ded Date/Time Advance Directives No 10:43am Health Care Power of Construction Scheduler No 12/16/14 10:43am Organ Donor No 12/16/14 10:43am Resuscitation Status Full Code 12/16/14 10:43am Directive Response Recor ded Date/Time Advance Directives No 1:40am Health Care Power of Construction Scheduler No 05/01/14 8:06pm Organ Donor No 05/01/14 8:06pm Resuscitation Status Full Code 05/02/14 1:40am Directive Response Recor ded Date/Time Advance Directives No 7:22am Health Care Power of Construction Scheduler No 11/19/13 7:22am Organ Donor No 11/19/13 7:22am Resuscitation Status Full Code 11/19/13 7:22am Directive Response Recor ded Date/Time Advance Directives No 11:05am Health Care Power of Construction Scheduler No 10/28/15 11:05am Organ Donor No 10/28/15 11:05am Directive Response Recor ded Date/Time Advance Directives No 8:09am Health Care Power of Construction Scheduler No 02/27/17 7:32am Organ Donor No 02/27/17 7:32am Directive Response Recor ded Date/Time Advance Directives No 8:09am Health Care Power of Construction Scheduler No 02/27/17 7:32am Organ Donor No 02/27/17 7:32am Resuscitation Status Full Code 02/28/17 8:09am Directive Response Recor ded Date/Time Advance Directives No 6:42am Health Care Power of Construction Scheduler No 10/10/17 6:42am Organ Donor No 10/10/17 6:42am Resuscitation Status Full Code 10/10/17 6:42am Directive Response Recor ded Date/Time Advance Directives No 6:42am Health Care Power of Construction Scheduler No 10/10/17 6:42am Organ Donor No 10/10/17 6:42am Discharge Instructions No hospital discharge instructions.No hospital discharge instructions.No hospital discharge instructions. Patient Instructions Physician Instructions Follow Up/Plan Follow up with Dr Maurer in 1-2 weeks CARDIAC CATH DISCHARGE INSTRUCTIONS Cardiac Rehab Please be expecting a follow up call from Cardiac Rehab within in one week. *Hold Metformin for 48 hours post heart cath. ACTIVITY * Go Home directly and rest. * Limit activity of the leg (or wrist if it was used) for 7 days including aerobics, swimming, jogging, bicycling, etc. * Restrict stair-climbing for 7 days if possible, if not, climb up with your non-cath leg, then bring together on the same step. * Avoid lifting, pushing, pulling or excessive movement of the affected extremity for 7 days. * Customary sexual activity may be resumed after 2 days-use caution not to use a position that strains or causes pain to the affected extremity. * No driving for 24 hours. * NO SMOKING. * Avoid straining for bowel movements for 7 days. * Gentle walking on level ground is allowed. * Returning to work will depend on the type of procedure and the results. Your doctor will discuss this with you. CALL YOUR DOCTOR FOR ANY OF THE FOLLOWING: *If bleeding from the puncture site occurs- Apply gentle pressure to site with clean cloth and call your doctor or EMS. * If a knot or lump forms under the skin, increases in size, or causes pain. * If bruising appears to be worsening or moving further down your leg instead of disappearing. * Temperature above 101 F. CARE OF YOUR GROIN INCISION; * Bruising or purple discoloration of the skin near the puncture site is common. * You may shower only, no bathtub bathing for 5 days. Be careful to avoid slipping as your leg may feel stiff. * If a closure device was used on your femoral artery, please see the attached guide regarding care of the device and your leg. * REMOVE the dressing from your groin the next day after your procedure in the shower. CARE OF YOUR WRIST INCISION; * Bruising or purple discoloration of the skin near the puncture site is common. * You may shower. * DO NOT submerge wrist. * Remove dressing in 24 hours. No hospital discharge instructions.No hospital discharge instructions.No hospital discharge instructions.No hospital discharge instruction information available.No hospital discharge instruction information available.No hospital discharge instruction information available.No hospital discharge instruction information available.No hospital discharge instruction information available.No hospital discharge instruction information available.No hospital discharge instruction information available. Additional Source Comments This clinical document has been generated using [employer] software that has been certified by the Office of the National Coordinator for Health Information Technology (ONC 15.99.04.3023.Diam.[id number]) and the National Committee for [employer] (NCQA, as an eMeasure certified technology). FOR RECORDS PERTAINING TO PATIENTS WHO ARE OR HAVE BEEN ENROLLED IN A CHEMICAL D EPENDENCY/SUBSTANCE ABUSE PROGRAM, SOME INFORMATION MAY BE OMITTED. This clinica l summary was aggregated from multiple sources. Caution should be exercised in using it in the provision of clinical care. This summary normalizes information from multiple sources, and as a consequence, information in this document may ma terially change the coding, format and clinical context of patient data. In candice tion, data may be omitted in some cases. CLINICAL DECISIONS SHOULD BE BASED ON T HE PRIMARY CLINICAL RECORDS. [employer] provides no warranty or guara ntee of the accuracy or completeness of information in this document.The followi ng information is based on time limited clinical information
--- OUTSIDE RECORDS SUMMARY | 2019-10-16 17:06 | XMS REPORT | Continuity of Care Document ---
Author Organization Unknown Address Unknown Phone Unavailable Allergies Active Description Code Type Severity Reaction Onset Reported/Identified Relationship to Patient Clinical Status Yes clonidine [id number] Drug Allergy Unknown N/A 12/12/2007 Medications There is no data. Problems Date Dx Coded Attending Type Code Diagnosis Diagnosed By 03/02/1211 EUGENIA DYER DO, Ot M48.061 SPINAL STENOSIS, LUMBAR REGION WITHOUT N 03/02/1416 EUGENIA DYER DO, Ot M54.5 LOW BACK PAIN 07/03/2012 Ot 724.00 07/03/2012 Ot V57.1 02/01/2013 EUGENIA DYER DO Ot 272.4 02/01/2013 EUGENIA DYER DO Ot 276.51 02/01/2013 EUGENIA DYER DO Ot 276.8 02/01/2013 EUGENIA DYER DO Ot 285.9 02/01/2013 EUGENIA DYER DO Ot 300.00 02/01/2013 EUGENIA DYER DO Ot 327.23 02/01/2013 EUGENIA DYER DO Ot 414.00 02/01/2013 EUGENIA DYER DO Ot 414.8 02/01/2013 EUGENIA DYER DO Ot 416.8 02/01/2013 EUGENIA DYER DO Ot 458.9 02/01/2013 EUGENIA DYER DO Ot 530.81 02/01/2013 EUGENIA DYER DO Ot 715.90 02/01/2013 EUGENIA DYER DO Ot 724.00 02/01/2013 EUGENIA DYER DO Ot 780.4 02/01/2013 EUGENIA DYER DO Ot 780.71 02/01/2013 EUGENIA DYER DO Ot 781.0 02/01/2013 EUGENIA DYER DO Ot 799.02 02/01/2013 EUGENIA DYER DO Ot E935.2 02/01/2013 EUGENIA DYER DO Ot V45.81 10/02/2013 TITA DO, HELDER K Ot 272.0 10/02/2013 TITA DO, HELDER K Ot 300.00 10/02/2013 TITA DO, HELDER K Ot 338.29 10/02/2013 TITA DO, HELDER K Ot 401.9 10/02/2013 TITA DO, HELDER K Ot 414.01 10/02/2013 TITA DO, HELDER K Ot 530.81 10/02/2013 TITA DO, HELDER K Ot 682.6 10/02/2013 TITA DO, HELDER K Ot 716.90 10/02/2013 TITA DO, HELDER K Ot 724.5 10/02/2013 TITA DO, HELDER K Ot 729.81 10/02/2013 TITA DO, HELDER K Ot 780.57 10/02/2013 TITA DO, HELDER K Ot 782.3 10/02/2013 TITA DO, HELDER K Ot 924.5 10/02/2013 TITA DO, HELDER K Ot E928.9 10/02/2013 TITA DO, HELDER K Ot V12.51 10/02/2013 TITA DO, HELDER K Ot V13.02 10/02/2013 TITA DO, HELDER K Ot V58.63 10/02/2013 TITA DO, HELDER K Ot V58.66 10/02/2013 TITA DO, HELDER K Ot V58.69 10/29/2013 EUGENIA DYER DO Ot 327.23 10/29/2013 EUGENIA DYER DO Ot 401.9 10/29/2013 EUGENIA DYER DO Ot 414.9 11/19/2013 HEIDI BLAIR FACC, ALI FACP CCDS Ot 285.9 11/19/2013 HEIDI BLAIR FACC, ALI FACP CCDS Ot 401.9 11/19/2013 HEIDI BLAIR FACC, ALI FACP CCDS Ot 414.01 11/19/2013 HEIDI BLAIR FACC, ALI FACP CCDS Ot 416.8 11/19/2013 HEIDI BLAIR FACC, ALI FACP CCDS Ot 530.81 11/19/2013 HEIDI BLAIR FACC, ALI FACP CCDS Ot V45.82 11/19/2013 HEIDI BLAIR FACC, NOEMI [facility] CCDS Ot V58.69 03/18/2014 DYER DO, EUGENIA Cason Ot 729.5 03/18/2014 DYER DO, EUGENIA Cason Ot V57.1 03/20/2014 DYER DO, EUGENIA Cason Ot 729.5 03/20/2014 DYER DO, EUGENIA Cason Ot V57.1 03/20/2014 DYER DO, EUGENIA Cason Ot 729.5 03/20/2014 DYER DO, EUGENIA Cason Ot V57.1 04/16/2014 DYER DO, EUGENIA Cason Ot 440.20 04/16/2014 DYER DO, EUGENIA Cason Ot 440.9 04/16/2014 DYER DO, EUGENIA Cason Ot 240.9 04/16/2014 ROSEANN BLAIR, CRISS Carpio Ot 416.8 04/16/2014 DYER DO EUGENIA Cason Ot 240.9 04/16/2014 LIGIA ARAUJO SAMPLE CLERK Ot 414.00 04/16/2014 LIGIA ARAUJO SAMPLE CLERK Ot 416.8 04/16/2014 LIGIA ARAUJO SAMPLE CLERK Ot 424.1 04/16/2014 LIGIA ARAUJO SAMPLE CLERK Ot 424.3 04/16/2014 DYER DO, EUGENIA Cason Ot 729.5 04/16/2014 DYER DO EUGENIA Cason Ot V57.1 04/16/2014 DYER DO EUGENIA Cason Ot 996.77 04/16/2014 DYER DO EUGENIA Cason Ot V43.65 04/16/2014 DYER DO, EUGENIA Cason Ot 996.77 04/16/2014 DYER DO, EUGENIA Cason Ot V43.65 05/01/2014 DYER DO EUGENIA Cason Ot 729.5 05/01/2014 DYER DO EUGENIA Cason Ot V57.1 05/02/2014 DYER DOEUGENIA Ot 300.00 05/02/2014 DYER DOEUGENIA Ot 401.9 05/02/2014 DYER DO EUGENIA Kamla Ot 414.01 05/02/2014 DYER DO EUGENIA Kamla Ot 416.8 05/02/2014 DYER DOEUGENIA Ot 786.52 05/02/2014 DYER DOEUGENIA Ot 300.00 05/02/2014 MANISHA HORTA EUGENIA Cason Ot 401.9 05/02/2014 DYERCHESTER HORTA EUGENIA Cason Ot 414.01 05/02/2014 MANISHA HORTA EUGENIA Cason Ot 416.8 05/02/2014 MANISHA HORTA EUGENIA Cason Ot 786.52 05/08/2014 DYERCHESTER HORTA EUGENIA Cason Ot 729.5 05/08/2014 MANISHA HORTA EUGENIA Cason Ot V57.1 05/12/2014 MANISHA HORTA EUGENIA Cason Ot 996.77 05/12/2014 MANISHA HORTA EUGENIA Cason Ot V43.65 05/14/2014 DYERCHESTER HORTA EUGENIA Cason Ot 996.77 05/14/2014 MANISHA HORTA EUGENIA Cason Ot V43.65 05/22/2014 ROSEANN BLAIR CRISS S Ot 416.8 05/28/2014 ROSEANN BLAIR CRISS S Ot 416.8 07/03/2014 Ot 111.9 08/04/2014 Ot 111.9 08/04/2014 Ot 729.5 08/04/2014 Ot V57.1 08/19/2014 MANISHA HORTA EUGENIA Cason Ot 355.0 08/19/2014 MANISHA HORTA EUGENIA Cason Ot V57.1 09/10/2014 MANISHA HOTRA EUGENIA Cason Ot 355.0 SCIATIC NERVE LESION 09/10/2014 MANISHA HORTA EUGENIA Kamla Ot V57.1 PHYSICAL THERAPY NEC 09/26/2014 MANISHA HORTA EUGENIA Cason Ot 240.9 10/01/2014 Ot 111.9 10/01/2014 Ot 729.5 10/01/2014 Ot V57.1 10/01/2014 MANISHA HORTA EUGENIA Kamla Ot 240.9 10/06/2014 MANISHA HORTA EUGENIA Kamla Ot 240.9 10/23/2014 ROSEANN BLAIR, CRISS S Ot 327.2 3 10/23/2014 ROSEANN BLAIR, CRISS S Ot 415.1 9 10/23/2014 ROSEANN BLAIR, CRISS S Ot 416.8 10/23/2014 ROSEANN BLAIR, CRISS S Ot 793.1 1 10/23/2014 ROSEANN BLAIR, CRISS S Ot 272.3 10/23/2014 ROSEANN BLAIR, CRISS S Ot 415.1 9 10/23/2014 ROSEANN BLAIR, CRISS S Ot 416.8 10/23/2014 ROSEANN BLAIR, CRISS S Ot 793.1 1 10/30/2014 ROSEANN BLAIR, CRISS S Ot 272.3 10/30/2014 ROSEANN BLAIR, CRISS S Ot 415.1 9 10/30/2014 ROSEANNHERRREA BLAIR, CRISS S Ot 416.8 10/30/2014 ROSEANN BLAIR, CRISS S Ot 793.1 1 10/31/2014 ROSEANN BLAIR, CRISS S Ot 327.2 3 10/31/2014 ROSEANNHERRERA BLAIR, CRISS S Ot 415.1 9 10/31/2014 ROSEANNHERRERA BLAIR, CRISS S Ot 416.8 10/31/2014 ROSEANNHERRERA BLAIR, CRISS S Ot 793.1 1 11/06/2014 ROSEANN BLAIR, CRISS S Ot 327.2 3 11/06/2014 ROSEANN BLAIR, CRISS S Ot 415.1 9 11/06/2014 ROSEANN BLAIR, CRISS S Ot 416.8 11/06/2014 ROSEANN BLAIR, CRISS S Ot 793.1 1 12/16/2014 HEIDI BLAIR FACC, ALI FACP CCDS Ot 272.4 HYPERLIPIDEMIA NEC/NOS 12/16/2014 HEIDI BLAIR FACC, NOEMI FACP CCDS Ot 300.00 ANXIETY STATE NOS 12/16/2014 HEIDI BLAIR FACC, ALI FACP CCDS Ot 401.9 HYPERTENSION NOS 12/16/2014 HEIDI BLAIR FACC, ALI FACP CCDS Ot 414.01 CORONARY ATHEROSCLEROSIS OF [place] CORON 12/16/2014 HEIDI BLAIR FACC, ALI FACP CCDS Ot 416.8 CHR PULMON HEART DIS NEC 12/16/2014 HEIDI BLAIR FACC, ALI FACP CCDS Ot 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 12/16/2014 HEIDI BLAIR FACC, ALI FACP CCDS Ot 428.0 CONGESTIVE HEART FAILURE NOS 12/16/2014 HEIDI BLAIR FACC, ALI FACP CCDS Ot 428.32 CHRONIC DIASTOLIC HRT FAILURE 12/16/2014 HEIDI BLAIR FACC, ALI FACP CCDS Ot 440.0 AORTIC ATHEROSCLEROSIS 12/16/2014 HEIDI BLAIR FACC, ALI FACP CCDS Ot 530.81 ESOPHAGEAL REFLUX 12/16/2014 HEIDI BLAIR FACC, ALI FACP CCDS Ot 780.57 UNSPECIFIED SLEEP APNEA 12/16/2014 HEIDI BLAIR FACC, ALI FACP CCDS Ot 780.79 OTH MALAISE FATIGUE 12/16/2014 HEIDI BLAIR [facility], NOEMI [place] CCDS Ot V45.82 PERCUTANEOUS TRANSLUM CORON ANGIOPLASTY 12/16/2014 HEIDI ART, [facility] Ot V58.69 OT MED,LT,CURRENT USE 12/23/2014 CRISS WHITFIELD MD Ot 793.1 1 01/01/2015 CRISS WHITFIELD MD Ot 793.1 1 07/24/2015 EUGENIA DYER DO Ot M54.5 LOW BACK PAIN 08/05/2015 EUGENIA DYER DO, Ot M54.5 LOW BACK PAIN 09/02/2015 EUGENIA DYER DO Ot M54.5 LOW BACK PAIN 10/28/2015 SUNI BLAIR, KIMMY Schuler Ot I10 ESSENTIAL (PRIMARY) HYPERTENSION 10/28/2015 KIMMY CULP MD Ot I51.7 CARDIOMEGALY 10/28/2015 KIMMY CULP MD Ot R00.0 TACHYCARDIA, UNSPECIFIED 10/28/2015 KIMMY CULP MD Ot R00.2 PALPITATIONS 10/28/2015 KIMMY CULP MD Ot R31.2 OTHER MICROSCOPIC HEMATURIA 11/03/2015 KIMMY CULP MD Ot I10 ESSENTIAL (PRIMARY) HYPERTENSION 11/03/2015 KIMMY CULP MD Ot I51.7 CARDIOMEGALY 11/03/2015 KIMMY CULP MD Ot R00.0 TACHYCARDIA, UNSPECIFIED 11/03/2015 KIMMY CULP MD Ot R00.2 PALPITATIONS 11/03/2015 KIMMY CULP MD Ot R31.2 OTHER MICROSCOPIC HEMATURIA 11/10/2015 Ot 111.9 DERM ATOMYCOSIS NOS 11/10/2015 Ot 729.5 PAIN IN LIMB 11/10/2015 Ot V57.1 PHYS ICAL THERAPY NEC 11/10/2015 EUGENIA DYER DO Ot 240.9 GOITER NOS 11/10/2015 CRISS WHITFIELD MD Ot 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 11/10/2015 CRISS WHITFIELD MD Ot 415.1 9 OT PULMON EMBOLISM/INFARCT 11/10/2015 ROSEANN MD, CRISS S Ot 416.8 CHR PULMON HEART DIS NEC 11/10/2015 ROSEANN BLAIR, CRISS S Ot 793.1 1 SOLITARY PULMONARY NODULE 11/10/2015 ROSEANN BLAIR, CRISS S Ot 327.2 3 OBSTRUCTIVE SLEEP APNEA (ADULT) (PEDIATR 11/10/2015 ROSEANN BLAIR, CRISS S Ot 415.1 9 OTH PULMON EMBOLISM/INFARCT 11/10/2015 ROSEANN BLAIR, CRISS S Ot 416.8 CHR PULMON HEART DIS NEC 11/10/2015 ROSEANN BLAIR, CRISS S Ot 793.1 1 SOLITARY PULMONARY NODULE 11/10/2015 ROSEANN BLAIR, CRISS S Ot 327.2 3 OBSTRUCTIVE SLEEP APNEA (ADULT) (PEDIATR 11/10/2015 ROSEANN BLAIR, CRISS S Ot 415.1 9 OTH PULMON EMBOLISM/INFARCT 11/10/2015 ROSEANN BLAIR, CRISS S Ot 416.8 CHR PULMON HEART DIS NEC 11/10/2015 ROSEANN BLAIR, CRISS S Ot 793.1 1 SOLITARY PULMONARY NODULE 11/10/2015 ROSEANN BLAIR, CRISS S Ot 793.1 1 SOLITARY PULMONARY NODULE 11/11/2015 ROSEANN BLAIR, CRISS S Ot I27.2 OTHER SECONDARY PULMONARY HYPERTENSION 11/11/2015 ROSEANN BLAIR CRISS S Ot I38 ENDOCARDITIS, VALVE UNSPECIFIED 11/11/2015 ROSEANN BLAIR CRISS S Ot I50.9 HEART FAILURE, UNSPECIFIED 11/12/2015 ROSEANN BLAIR CRISS S Ot I27.2 OTHER SECONDARY PULMONARY HYPERTENSION 11/12/2015 ROSEANN BLAIR CRISS S Ot I38 ENDOCARDITIS, VALVE UNSPECIFIED 11/12/2015 ROSEANN BLAIR CRISS S Ot I50.9 HEART FAILURE, UNSPECIFIED 11/13/2015 HEIDI BLAIR FACC, ALI FACP CCDS Ot E78.4 OTHER HYPERLIPIDEMIA 11/13/2015 HEIDI BLAIR FACC, ALI FACP CCDS Ot G47.33 OBSTRUCTIVE SLEEP APNEA (ADULT) (PEDIATR 11/13/2015 HEIDI BLAIR FACC, ALI FACP CCDS Ot I10 ESSENTIAL (PRIMARY) HYPERTENSION 11/13/2015 HEIDI BLAIR FACC, ALI FACP CCDS Ot I25.10 ATHSCL HEART DISEASE OF [place] CORONARY 11/13/2015 HEIDI BLAIR FACC, ALI FACP CCDS Ot I27.0 PRIMARY PULMONARY HYPERTENSION 11/13/2015 HEIDI ARTC, ALI FACP CCDS Ot I65.23 OCCLUSION AND STENOSIS OF BILATERAL WILD 11/16/2015 HEIDI BLAIR FACC, ALI FACP CCDS Ot E78.4 OTHER HYPERLIPIDEMIA 11/16/2015 HEIDI BLAIR FACC, ALI FACP CCDS Ot G47.33 OBSTRUCTIVE SLEEP APNEA (ADULT) (PEDIATR 11/16/2015 HEIDI BLAIR FACC, ALI FACP CCDS Ot I10 ESSENTIAL (PRIMARY) HYPERTENSION 11/16/2015 HEIDI BLAIR FACC, ALI FACP CCDS Ot I25.10 ATHSCL HEART DISEASE OF [place] CORONARY 11/16/2015 HEIDI BLAIR FACC, ALI FACP CCDS Ot I27.0 PRIMARY PULMONARY HYPERTENSION 11/16/2015 HEIDI BLAIR FACC, ALI FACP CCDS Ot I65.23 OCCLUSION AND STENOSIS OF BILATERAL WILD 11/23/2015 CRISS WHITFIELD MD S Ot I27.2 OTHER SECONDARY PULMONARY HYPERTENSION 11/23/2015 CRISS WHITFIELD MD S Ot I38 ENDOCARDITIS, VALVE UNSPECIFIED 11/23/2015 CRISS WHITFIELD MD S Ot I50.9 HEART FAILURE, UNSPECIFIED 11/24/2015 HEIDI BLAIR FACC, ALI FACP CCDS Ot E78.4 OTHER HYPERLIPIDEMIA 11/24/2015 HEIDI BLAIR FACC, ALI FACP CCDS Ot G47.33 OBSTRUCTIVE SLEEP APNEA (ADULT) (PEDIATR 11/24/2015 HEIDI BLAIR FACC, ALI FACP CCDS Ot I10 ESSENTIAL (PRIMARY) HYPERTENSION 11/24/2015 HEIDI BLAIR FACAnny, ALI FACP CCDS Ot I25.10 ATHSCL HEART DISEASE OF [place] CORONARY 11/24/2015 HEIDI BLAIR FACC, ALI FACP CCDS Ot I27.0 PRIMARY PULMONARY HYPERTENSION 11/24/2015 HEIDI BLAIR FACC, ALI FACP CCDS Ot I65.23 OCCLUSION AND STENOSIS OF BILATERAL WILD 12/04/2015 CRISS WHITFIELD MD S Ot I27.2 OTHER SECONDARY PULMONARY HYPERTENSION 12/04/2015 CRISS WHITFIELD MD S Ot I38 ENDOCARDITIS, VALVE UNSPECIFIED 12/04/2015 CRISS WHITFIELD MD S Ot I50.9 HEART FAILURE, UNSPECIFIED 12/04/2015 HEIDI BLAIR FACC, ALI FACP CCDS Ot E78.4 OTHER HYPERLIPIDEMIA 12/04/2015 HEIDI BLAIR FACC, ALI FACP CCDS Ot G47.33 OBSTRUCTIVE SLEEP APNEA (ADULT) (PEDIATR 12/04/2015 HEIDI BLAIR FACC, ALI FACP CCDS Ot I10 ESSENTIAL (PRIMARY) HYPERTENSION 12/04/2015 HEIDI BLAIR FACC, ALI FACP CCDS Ot I25.10 ATHSCL HEART DISEASE OF [place] CORONARY 12/04/2015 HEIDI ARTC, ALI FACP CCDS Ot I27.0 PRIMARY PULMONARY HYPERTENSION 12/04/2015 HEIDI ARTC, ALI FACP CCDS Ot I65.23 OCCLUSION AND STENOSIS OF BILATERAL WILD 12/11/2015 CRISS WHITFIELD MD S Ot I27.2 OTHER SECONDARY PULMONARY HYPERTENSION 12/11/2015 CRISS WHITFIELD MD S Ot I38 ENDOCARDITIS, VALVE UNSPECIFIED 12/11/2015 CRISS WHITFIELD MD S Ot I50.9 HEART FAILURE, UNSPECIFIED 12/15/2015 HEIDI BLAIR FACC, ALI FACP CCDS Ot E78.4 OTHER HYPERLIPIDEMIA 12/15/2015 HEIDI BLAIR FACC, ALI FACP CCDS Ot G47.33 OBSTRUCTIVE SLEEP APNEA (ADULT) (PEDIATR 12/15/2015 HEIDI BLAIR FACC, ALI FACP CCDS Ot I10 ESSENTIAL (PRIMARY) HYPERTENSION 12/15/2015 HEIDI BLAIR FACC, ALI FACP CCDS Ot I25.10 ATHSCL HEART DISEASE OF [place] CORONARY 12/15/2015 HEIDI BLAIR FACC, ALI FACP CCDS Ot I27.0 PRIMARY PULMONARY HYPERTENSION 12/15/2015 HEIDI BLAIR FACC, ALI FACP CCDS Ot I65.23 OCCLUSION AND STENOSIS OF BILATER[place]ILD 12/15/2015 HEIDI BLAIR FACC, ALI FACP CCDS Ot E78.4 OTHER HYPERLIPIDEMIA 12/15/2015 HEIDI BLAIR FACC, ALI FACP CCDS Ot G47.33 OBSTRUCTIVE SLEEP APNEA (ADULT) (PEDIATR 12/15/2015 HEIDI ARTC, ALI FACP CCDS Ot I10 ESSENTIAL (PRIMARY) HYPERTENSION 12/15/2015 HEIDI BLAIR FACC, ALI FACP CCDS Ot I25.10 ATHSCL HEART DISEASE OF [place] CORONARY 12/15/2015 HEIDI BLAIR FACC, ALI FACP CCDS Ot I27.0 PRIMARY PULMONARY HYPERTENSION 12/15/2015 HEIDI BLAIR FACC, ALI FACP CCDS Ot I65.23 OCCLUSION AND STENOSIS OF BILATERAL WILD 12/16/2015 ROSEANN MD, CRISS S Ot I27.2 OTHER SECONDARY PULMONARY HYPERTENSION 12/16/2015 IRVIN WHITFIELD MDID S Ot I38 ENDOCARDITIS, VALVE UNSPECIFIED 12/16/2015 ROSEANN BLAIR CRISS S Ot I50.9 HEART FAILURE, UNSPECIFIED 12/23/2015 ROSEANN BLAIR, CRISS S Ot R91.1 SOLITARY PULMONARY NODULE 12/23/2015 IRVIN WHITFIELD MDID S Ot I27.2 OTHER SECONDARY PULMONARY HYPERTENSION 12/23/2015 IRVIN WHITFIELD MDID S Ot I38 ENDOCARDITIS, VALVE UNSPECIFIED 12/23/2015 ROSEANN BLAIR CRISS S Ot I50.9 HEART FAILURE, UNSPECIFIED 01/13/2016 ROSEANN BLAIR, CRISS S Ot R91.1 SOLITARY PULMONARY NODULE 01/20/2016 ROSEANN BLAIR CRISS S Ot R91.1 SOLITARY PULMONARY NODULE 02/02/2016 ROSEANN BLAIR CRISS S Ot 793.1 1 SOLITARY PULMONARY NODULE 02/02/2016 IRVIN WHITFIELD MDID S Ot I27.2 OTHER SECONDARY PULMONARY HYPERTENSION 02/02/2016 CRISS WHITFIELD MD S Ot I38 ENDOCARDITIS, VALVE UNSPECIFIED 02/02/2016 IRVIN WHITFIELD MDID S Ot I50.9 HEART FAILURE, UNSPECIFIED 02/02/2016 HEIDI BLAIR FACC, ALI FACP CCDS Ot E78.4 OTHER HYPERLIPIDEMIA 02/02/2016 HEIDI BLAIR FACC, ALI FACP CCDS Ot G47.33 OBSTRUCTIVE SLEEP APNEA (ADULT) (PEDIATR 02/02/2016 HEIDI BLAIR FACC, ALI FACP CCDS Ot I10 ESSENTIAL (PRIMARY) HYPERTENSION 02/02/2016 HEIDI BLAIR FACC, ALI FACP CCDS Ot I25.10 ATHSCL HEART DISEASE OF [place] CORONARY 02/02/2016 HEIDI BLAIR FACC, ALI FACP CCDS Ot I27.0 PRIMARY PULMONARY HYPERTENSION 02/02/2016 HEIDI BLAIR FACC, ALI FACP CCDS Ot I65.23 OCCLUSION AND STENOSIS OF BILATERAL WILD 02/02/2016 ROSEANN BLAIR CRISS S Ot I27.2 OTHER SECONDARY PULMONARY HYPERTENSION 02/02/2016 IRVIN WHITFIELD MDID S Ot I38 ENDOCARDITIS, VALVE UNSPECIFIED 02/02/2016 ROSEANN BLAIR CRISS S Ot I50.9 HEART FAILURE, UNSPECIFIED 02/02/2016 ROSEANN BLAIR CRISS S Ot R91.1 SOLITARY PULMONARY NODULE 02/02/2016 MANISHA HORTA, EUGENIA Cason Ot Z12.31 ENCNTR SCREEN MAMMOGRAM FOR MALIGNANT NE 02/02/2016 MANISHA HORTA, EUGENIA Cason Ot Z12.31 ENCNTR SCREEN MAMMOGRAM FOR MALIGNANT NE 02/02/2016 DYER DO, EUGENIA Cason Ot Z12.31 ENCNTR SCREEN MAMMOGRAM FOR MALIGNANT NE 02/02/2016 MANISHA HORTA, EUGENIA Cason Ot Z12.31 ENCNTR SCREEN MAMMOGRAM FOR MALIGNANT NE 02/08/2016 DYER DO, EUGENIA Cason Ot Z12.31 ENCNTR SCREEN MAMMOGRAM FOR MALIGNANT NE 02/08/2016 DYER DO, EUGENIA Cason Ot Z12.31 ENCNTR SCREEN MAMMOGRAM FOR MALIGNANT NE 02/08/2016 DYER DO, EUGENIA Cason Ot Z12.31 ENCNTR SCREEN MAMMOGRAM FOR MALIGNANT NE 02/08/2016 DYER DO, EUGENIA Cason Ot Z12.31 ENCNTR SCREEN MAMMOGRAM FOR MALIGNANT NE 02/11/2016 DYER DO, EUGENIA Cason Ot Z12.31 ENCNTR SCREEN MAMMOGRAM FOR MALIGNANT NE 04/22/2016 EUGENIA DYER DO Ot M81.0 AGE-RELATED OSTEOPOROSIS W/O CURRENT PAT 04/22/2016 EUGENIA DYER DO Ot M81.0 AGE-RELATED OSTEOPOROSIS W/O CURRENT PAT 04/25/2016 EUGENIA DYER DO Ot R07.9 CHEST PAIN, UNSPECIFIED 04/29/2016 EUGENIA DYER DO Ot E04.2 NONTOXIC MULTINODULAR GOITER 04/29/2016 EUGENIA DYER DO Ot M85.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, 05/04/2016 EUGENIA DYER DO Ot I25.10 ATHSCL HEART DISEASE OF [place] CORONARY 05/05/2016 EUGENIA DYER DO Ot E04.2 NONTOXIC MULTINODULAR GOITER 05/05/2016 EUGENIA DYER DO Ot M85.89 OTH DISRD OF BONE DENSITY AND STRUCTURE, 05/06/2016 EUGENIA DYER DO Ot I25.10 ATHSCL HEART DISEASE OF [place] CORONARY 05/06/2016 EUGENIA DYER DO Ot R07.9 CHEST PAIN, UNSPECIFIED 05/09/2016 EUGENIA DYER DO Ot I25.10 ATHSCL HEART DISEASE OF [place] CORONARY 05/09/2016 EUGENIA DYER DO Ot R07.9 CHEST PAIN, UNSPECIFIED 05/13/2016 EUGENIA DYER DO Ot R07.9 CHEST PAIN, UNSPECIFIED 05/25/2016 EUGENIA DYER DO Ot E04.2 NONTOXIC MULTINODULAR GOITER 05/25/2016 EUGENIA DYER DO Ot M85.89 OTH DISRD OF BONE DENSITY AND STRUCTURE, 05/30/2016 EUGENIA DYER DO Ot I25.10 ATHSCL HEART DISEASE OF [place] CORONARY 05/30/2016 EUGENIA DYER DO Ot R07.9 CHEST PAIN, UNSPECIFIED 06/08/2016 EUGENIA DYER DO Ot I25.10 ATHSCL HEART DISEASE OF [place] CORONARY 06/08/2016 EUGENIA DYER DO Ot R07.9 CHEST PAIN, UNSPECIFIED 10/06/2016 EUGENAI DYER DO Ot N28.1 CYST OF KIDNEY, ACQUIRED 10/28/2016 EUGENIA DYER DO Ot N28.1 CYST OF KIDNEY, ACQUIRED 11/03/2016 EUGENIA DYER DO Ot N28.1 CYST OF KIDNEY, ACQUIRED 11/11/2016 EUGENIA DYER DO Ot S89.92XA UNSPECIFIED INJURY OF LEFT LOWER LEG, IN 11/11/2016 EUGENIA DYER DO Ot X58.XXXA EXPOSURE TO OTHER SPECIFIED FACTORS, INI 11/11/2016 EUGENIA DYER DO Ot Y99.8 OTHER EXTERNAL CAUSE STATUS 11/11/2016 EUGENIA DYER DO Ot Z96.652 PRESENCE OF LEFT ARTIFICIAL KNEE JOINT 11/16/2016 EUGENIA DYER DO Ot S89.92XA UNSPECIFIED INJURY OF LEFT LOWER LEG, IN 11/16/2016 EUGENIA DYER DO Ot X58.XXXA EXPOSURE TO OTHER SPECIFIED FACTORS, INI 11/16/2016 EUGENIA DYER DO Ot Y99.8 OTHER EXTERNAL CAUSE STATUS 11/16/2016 EUGENIA DYER DO Ot Z96.652 PRESENCE OF LEFT ARTIFICIAL KNEE JOINT 11/30/2016 EUGENIA DYER DO Ot S89.92XA UNSPECIFIED INJURY OF LEFT LOWER LEG, IN 11/30/2016 EUGENIA DYER DO Ot X58.XXXA EXPOSURE TO OTHER SPECIFIED FACTORS, INI 11/30/2016 MANISHA HORTA, EUGENIA Caosn Ot Y99.8 OTHER EXTERNAL CAUSE STATUS 11/30/2016 EUGENIA DYER DO Ot Z96.652 PRESENCE OF LEFT ARTIFICIAL KNEE JOINT 12/08/2016 EUGENIA DYER DO Ot S89.92XA UNSPECIFIED INJURY OF LEFT LOWER LEG, IN 12/08/2016 EUGENIA DYER DO Ot X58.XXXA EXPOSURE TO OTHER SPECIFIED FACTORS, INI 12/08/2016 EUGENIA DYER DO Ot Y99.8 OTHER EXTERNAL CAUSE STATUS 12/08/2016 EUGENIA DYER DO Ot Z96.652 PRESENCE OF LEFT ARTIFICIAL KNEE JOINT 12/23/2016 MANISHA HORTA EUGENIA Cason Ot M48.06 SPINAL STENOSIS, LUMBAR REGION 12/31/2016 MANISHA HORTA EUGENIA Cason Ot M48.06 SPINAL STENOSIS, LUMBAR REGION 01/04/2017 MANISHA HORTA EUGENIA Cason Ot M48.061 SPINAL STENOSIS, LUMBAR REGION WITHOUT N 02/24/2017 MANISHA HORTA EUGENIA Cason Ot M48.061 SPINAL STENOSIS, LUMBAR REGION WITHOUT N 02/27/2017 KIMMY CULP MD, Ot E78.00 PURE HYPERCHOLESTEROLEMIA, UNSPECIFIED 02/27/2017 KIMMY CULP MD Ot G47.30 SLEEP APNEA, UNSPECIFIED 02/27/2017 KIMMY CULP MD Ot I10 ESSENTIAL (PRIMARY) HYPERTENSION 02/27/2017 KIMMY CULP MD, Ot I25.10 ATHSCL HEART DISEASE OF [place] CORONARY 02/27/2017 KIMMY CULP MD Ot K21.9 GASTRO-ESOPHAGEAL REFLUX DISEASE WITHOUT 02/27/2017 KIMMY CULP MD Ot M54.6 PAIN IN THORACIC SPINE 02/27/2017 KIMMY CULP MD, Ot Z79.4 FAMILY NURSE PRACTITIONER (CURRENT) USE OF INSULIN 02/27/2017 KIMMY CULP MD Ot Z90.710 ACQUIRED ABSENCE OF BOTH CERVIX AND UTER 02/27/2017 KIMMY CULP MD Ot Z95.5 PRESENCE OF CORONARY ANGIOPLASTY IMPLANT 02/28/2017 BRUEGGEMANN MD, KIMMY T Ot E78.00 PURE HYPERCHOLESTEROLEMIA, UNSPECIFIED 02/28/2017 KIMMY CULP MD Ot G47.30 SLEEP APNEA, UNSPECIFIED 02/28/2017 KIMMY CULP MD Ot I10 ESSENTIAL (PRIMARY) HYPERTENSION 02/28/2017 KIMMY CULP MD Ot I16.0 HYPERTENSIVE URGENCY 02/28/2017 KIMMY CULP MD Ot I25.10 ATHSCL HEART DISEASE OF [place] CORONARY 02/28/2017 KIMMY CULP MD Ot K21.9 GASTRO-ESOPHAGEAL REFLUX DISEASE WITHOUT 02/28/2017 KIMMY CULP MD Ot M54.6 PAIN IN THORACIC SPINE 02/28/2017 KIMMY CULP MD Ot R07.9 CHEST PAIN, UNSPECIFIED 02/28/2017 KIMMY CULP MD Ot Z79.82 FAMILY NURSE PRACTITIONER (CURRENT) USE OF ASPIRIN 02/28/2017 KIMMY CULP MD Ot Z90.710 ACQUIRED ABSENCE OF BOTH CERVIX AND UTER 02/28/2017 KIMMY CULP MD Ot Z95.5 PRESENCE OF CORONARY ANGIOPLASTY IMPLANT 03/01/2017 EUGENIA DYER DO Ot M48.061 SPINAL STENOSIS, LUMBAR REGION WITHOUT N 03/02/2017 KIMMY CULP MD Ot E78.00 PURE HYPERCHOLESTEROLEMIA, UNSPECIFIED 03/02/2017 KIMMY CULP MD Ot G47.30 SLEEP APNEA, UNSPECIFIED 03/02/2017 KIMMY CULP MD Ot I10 ESSENTIAL (PRIMARY) HYPERTENSION 03/02/2017 KIMMY CULP MD Ot I16.0 HYPERTENSIVE URGENCY 03/02/2017 KIMMY CULP MD Ot I25.10 ATHSCL HEART DISEASE OF [place] CORONARY 03/02/2017 KIMMY CULP MD Ot K21.9 GASTRO-ESOPHAGEAL REFLUX DISEASE WITHOUT 03/02/2017 KIMMY CULP MD Ot M54.6 PAIN IN THORACIC SPINE 03/02/2017 KIMMY CULP MD Ot R07.9 CHEST PAIN, UNSPECIFIED 03/02/2017 KIMMY CULP MD Ot Z79.82 FAMILY NURSE PRACTITIONER (CURRENT) USE OF ASPIRIN 03/02/2017 KIMMY CULP MD Ot Z90.710 ACQUIRED ABSENCE OF BOTH CERVIX AND UTER 03/02/2017 KIMMY CULP MD Ot Z95.5 PRESENCE OF CORONARY ANGIOPLASTY IMPLANT 03/09/2017 KIMMY CULP MD Ot E78.00 PURE HYPERCHOLESTEROLEMIA, UNSPECIFIED 03/09/2017 KIMMY CULP MD Ot G47.30 SLEEP APNEA, UNSPECIFIED 03/09/2017 KIMMY CULP MD Ot I10 ESSENTIAL (PRIMARY) HYPERTENSION 03/09/2017 KIMMY CUPL MD Ot I16.0 HYPERTENSIVE URGENCY 03/09/2017 KIMMY CULP MD Ot I25.10 ATHSCL HEART DISEASE OF [place] CORONARY 03/09/2017 KIMMY CULP MD Ot K21.9 GASTRO-ESOPHAGEAL REFLUX DISEASE WITHOUT 03/09/2017 KIMMY CULP MD Ot M54.6 PAIN IN THORACIC SPINE 03/09/2017 KIMMY CULP MD Ot R07.9 CHEST PAIN, UNSPECIFIED 03/09/2017 KIMMY CULP MD, Ot Z79.82 FAMILY NURSE PRACTITIONER (CURRENT) USE OF ASPIRIN 03/09/2017 KIMMY CULP MD Ot Z90.710 ACQUIRED ABSENCE OF BOTH CERVIX AND UTER 03/09/2017 KIMMY CULP MD Ot Z95.5 PRESENCE OF CORONARY ANGIOPLASTY IMPLANT 03/21/2017 EUGENIA DYER DO Ot J34.89 OTHER SPECIFIED DISORDERS OF NOSE AND NA 03/21/2017 EUGENIA DYER DO Ot R41.82 ALTERED MENTAL STATUS, UNSPECIFIED 03/30/2017 EUGENIA DYER DO Ot J34.89 OTHER SPECIFIED DISORDERS OF NOSE AND NA 03/30/2017 EUGENIA DYER DO Ot R41.82 ALTERED MENTAL STATUS, UNSPECIFIED 04/03/2017 EUGENIA DYER DO Ot M48.061 SPINAL STENOSIS, LUMBAR REGION WITHOUT N 04/05/2017 EUGENIA DYER DO Ot M48.061 SPINAL STENOSIS, LUMBAR REGION WITHOUT N 04/20/2017 EUGENIA DYER DO Ot M48.061 SPINAL STENOSIS, LUMBAR REGION WITHOUT N 04/28/2017 EUGENIA DYER DO, Ot M48.061 SPINAL STENOSIS, LUMBAR REGION WITHOUT N 06/27/2017 EUGENIA DYER DO, Ot M48.061 SPINAL STENOSIS, LUMBAR REGION WITHOUT N 06/27/2017 CRISS WHITFIELD MD S Ot R91.1 SOLITARY PULMONARY NODULE 07/13/2017 CRISS WHITFIELD MD S Ot 793.1 1 SOLITARY PULMONARY NODULE 07/13/2017 CRISS WHITFIELD MD S Ot I27.2 OTHER SECONDARY PULMONARY HYPERTENSION 07/13/2017 CRISS WHITFIELD MD S Ot I38 ENDOCARDITIS, VALVE UNSPECIFIED 07/13/2017 CRISS WHITFIELD MD S Ot I50.9 HEART FAILURE, UNSPECIFIED 07/13/2017 HEIDI BLAIR FACC, ALI FACP CCDS Ot E78.4 OTHER HYPERLIPIDEMIA 07/13/2017 HEIDI BLAIR FACC, ALI FACP CCDS Ot G47.33 OBSTRUCTIVE SLEEP APNEA (ADULT) (PEDIATR 07/13/2017 HEIDI BLAIR FACC, ALI FACP CCDS Ot I10 ESSENTIAL (PRIMARY) HYPERTENSION 07/13/2017 HEIDI BLAIR FACC, ALI FACP CCDS Ot I25.10 ATHSCL HEART DISEASE OF [place] CORONARY 07/13/2017 HEIDI BLAIR FACC, ALI FACP CCDS Ot I27.0 PRIMARY PULMONARY HYPERTENSION 07/13/2017 HEIDI BLAIR FACC, ALI FACP CCDS Ot I65.23 OCCLUSION AND STENOSIS OF BILATERAL WILD 07/13/2017 CRISS WHITFIELD MD S Ot I27.2 OTHER SECONDARY PULMONARY HYPERTENSION 07/13/2017 CRISS WHITFIELD MD S Ot I38 ENDOCARDITIS, VALVE UNSPECIFIED 07/13/2017 CRISS WHITFIELD MD S Ot I50.9 HEART FAILURE, UNSPECIFIED 07/13/2017 CRISS WHITFIELD MD S Ot R91.1 SOLITARY PULMONARY NODULE 07/13/2017 EUGENIA DYER DO Ot Z12.31 ENCNTR SCREEN MAMMOGRAM FOR MALIGNANT NE 07/13/2017 EUGENIA DYER DO Ot E04.2 NONTOXIC MULTINODULAR GOITER 07/13/2017 EUGENIA DYER DO Ot M85.89 OTH DISRD OF BONE DENSITY AND STRUCTURE, 07/13/2017 EUGENIA DYER DO Ot R07.9 CHEST PAIN, UNSPECIFIED 07/13/2017 EUGENIA DYER DO Ot I25.10 ATHSCL HEART DISEASE OF [place] CORONARY 07/13/2017 EUGENIA DYER DO Ot R07.9 CHEST PAIN, UNSPECIFIED 07/13/2017 EUGENIA DYER DO Ot N28.1 CYST OF KIDNEY, ACQUIRED 07/13/2017 EUGENIA DYER DO Ot S89.92XA UNSPECIFIED INJURY OF LEFT LOWER LEG, IN 07/13/2017 EUGENIA DYER DO Ot X58.XXXA EXPOSURE TO OTHER SPECIFIED FACTORS, INI 07/13/2017 EUGENIA DYER DO Ot Y99.8 OTHER EXTERNAL CAUSE STATUS 07/13/2017 EUGENIA DYER DO Ot Z96.652 PRESENCE OF LEFT ARTIFICIAL KNEE JOINT 07/13/2017 EUGENIA DYER DO Ot J34.89 OTHER SPECIFIED DISORDERS OF NOSE AND NA 07/13/2017 EUGENIA DYER DO Ot R41.82 ALTERED MENTAL STATUS, UNSPECIFIED 07/13/2017 ROSEANN BLAIR, CRISS S Ot R91.1 SOLITARY PULMONARY NODULE 07/14/2017 EUGENIA DYER DO Ot M19.90 UNSPECIFIED OSTEOARTHRITIS, UNSPECIFIED 07/14/2017 EUGENIA DYER DO Ot M25.551 PAIN IN RIGHT HIP 07/14/2017 EUGENIA DYER DO Ot Z91.81 HISTORY OF FALLING 07/21/2017 ROSEANN BLAIR, CRISS S Ot R91.1 SOLITARY PULMONARY NODULE 08/02/2017 EUGENIA DYER DO Ot M19.90 UNSPECIFIED OSTEOARTHRITIS, UNSPECIFIED 08/02/2017 EUGENIA DYER DO Ot M25.551 PAIN IN RIGHT HIP 08/02/2017 EUGENIA DYER DO Ot Z91.81 HISTORY OF FALLING 08/09/2017 EUGENIA DYER DO Ot M19.90 UNSPECIFIED OSTEOARTHRITIS, UNSPECIFIED 08/09/2017 EUGENIA DYER DO Ot M25.551 PAIN IN RIGHT HIP 08/09/2017 EUGENIA DYER DO Ot Z91.81 HISTORY OF FALLING 10/10/2017 LEA BLAIR, STERLING Cason Ot E78. 00 PURE HYPERCHOLESTEROLEMIA, UNSPECIFIED 10/10/2017 STERLING TATE MD Ot I10 ESSENTIAL (PRIMARY) HYPERTENSION 10/10/2017 LEA MD, STERLING J Ot I25. 10 ATHSCL HEART DISEASE OF [place] CORONARY 10/10/2017 STERLING TATE MD Ot I27. 0 PRIMARY PULMONARY HYPERTENSION 10/10/2017 STERLING TATE MD Ot K21. 9 GASTRO-ESOPHAGEAL REFLUX DISEASE WITHOUT 10/10/2017 STERLING TATE MD J Ot R07. 89 OTHER CHEST PAIN 10/10/2017 STERLING TATE MD Ot Z79. 02 FAMILY NURSE PRACTITIONER (CURRENT) USE OF ANTITHROMBOTI 10/10/2017 STERLING TATE MD Ot Z79. 82 GROUP HOME (CURRENT) USE OF ASPIRIN 10/10/2017 STERLING TATE MD J Ot Z88. 8 ALLERGY STATUS TO OTH DRUG/MEDS/BIOL SUB 10/10/2017 STERLING TATE MD J Ot Z90.710 ACQUIRED ABSENCE OF BOTH CERVIX AND UTER 10/10/2017 STERLING TATE MD Ot Z91. 14 PATIENT'S OTHER NONCOMPLIANCE WITH MEDIC 10/10/2017 STERLING TATE MD Ot Z95. 5 PRESENCE OF CORONARY ANGIOPLASTY IMPLANT 10/12/2017 STERLING TATE MD Ot E78. 00 PURE HYPERCHOLESTEROLEMIA, UNSPECIFIED 10/12/2017 STERLING TATE MD Ot I10 ESSENTIAL (PRIMARY) HYPERTENSION 10/12/2017 STERLING TATE MD Ot I25. 10 ATHSCL HEART DISEASE OF [place] CORONARY 10/12/2017 STERLING TATE MD Ot I27. 0 PRIMARY PULMONARY HYPERTENSION 10/12/2017 STERLING TATE MD Ot K21. 9 GASTRO-ESOPHAGEAL REFLUX DISEASE WITHOUT 10/12/2017 STERLING TATE MD Ot R07. 89 OTHER CHEST PAIN 10/12/2017 STERLING TATE MD Ot Z79. 02 GROUP HOME (CURRENT) USE OF ANTITHROMBOTI 10/12/2017 STERLING TATE MD Ot Z79. 82 FAMILY NURSE PRACTITIONER (CURRENT) USE OF ASPIRIN 10/12/2017 STERLING TATE MD J Ot Z88. 8 ALLERGY STATUS TO OTH DRUG/MEDS/BIOL SUB 10/12/2017 STERLING TATE MD Ot Z90.710 ACQUIRED ABSENCE OF BOTH CERVIX AND UTER 10/12/2017 STERLING TATE MD Ot Z91. 14 PATIENT'S OTHER NONCOMPLIANCE WITH MEDIC 10/12/2017 LEA BLAIR STERLING Cason Ot Z95. 5 PRESENCE OF CORONARY ANGIOPLASTY IMPLANT 11/24/2017 CRISS WHITFIELD MD S Ot 793.1 1 SOLITARY PULMONARY NODULE 11/24/2017 CRISS WHITFIELD MD S Ot I27.2 OTHER SECONDARY PULMONARY HYPERTENSION 11/24/2017 CRISS WHITFIELD MD S Ot I38 ENDOCARDITIS, VALVE UNSPECIFIED 11/24/2017 CRISS WHITFIELD MD Ot I50.9 HEART FAILURE, UNSPECIFIED 11/24/2017 HEIDI BLAIR FACC, ALI FACP CCDS Ot E78.4 OTHER HYPERLIPIDEMIA 11/24/2017 HEIDI BLAIR FACC, ALI FACP CCDS Ot G47.33 OBSTRUCTIVE SLEEP APNEA (ADULT) (PEDIATR 11/24/2017 HEIDI BLAIR FACC, ALI FACP CCDS Ot I10 ESSENTIAL (PRIMARY) HYPERTENSION 11/24/2017 HEIDI BLAIR FACC, ALI FACP CCDS Ot I25.10 ATHSCL HEART DISEASE OF [place] CORONARY 11/24/2017 HEIDI BLAIR FACC, ALI FACP CCDS Ot I27.0 PRIMARY PULMONARY HYPERTENSION 11/24/2017 HEIDI BLAIR FACC, ALI FACP CCDS Ot I65.23 OCCLUSION AND STENOSIS OF BILATERAL WILD 11/24/2017 CRISS WHITFIELD MD S Ot I27.2 OTHER SECONDARY PULMONARY HYPERTENSION 11/24/2017 CRISS WHITFIELD MD S Ot I38 ENDOCARDITIS, VALVE UNSPECIFIED 11/24/2017 CRISS WHITFIELD MD S Ot I50.9 HEART FAILURE, UNSPECIFIED 11/24/2017 CRISS WHITFIELD MD S Ot R91.1 SOLITARY PULMONARY NODULE 11/24/2017 EUGENIA DYER DO Ot Z12.31 ENCNTR SCREEN MAMMOGRAM FOR MALIGNANT NE 11/24/2017 EUGENIA DYER DO Ot E04.2 NONTOXIC MULTINODULAR GOITER 11/24/2017 EUGENIA DYER DO Ot M85.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, 11/24/2017 EUGENIA DYER DO Ot R07.9 CHEST PAIN, UNSPECIFIED 11/24/2017 EUGENIA DYER DO Ot I25.10 ATHSCL HEART DISEASE OF [place] CORONARY 11/24/2017 EUGENIA DYER DO Ot R07.9 CHEST PAIN, UNSPECIFIED 11/24/2017 EUGENIA DYER DO Ot N28.1 CYST OF KIDNEY, ACQUIRED 11/24/2017 EUGENIA DYER DO Ot S89.92XA UNSPECIFIED INJURY OF LEFT LOWER LEG, IN 11/24/2017 EUGENIA DYER DO Ot X58.XXXA EXPOSURE TO OTHER SPECIFIED FACTORS, INI 11/24/2017 EUGENIA DYER DO Ot Y99.8 OTHER EXTERNAL CAUSE STATUS 11/24/2017 EUGENIA DYER DO, Ot Z96.652 PRESENCE OF LEFT ARTIFICIAL KNEE JOINT 11/24/2017 EUGENIA DYER DO, Ot J34.89 OTHER SPECIFIED DISORDERS OF NOSE AND NA 11/24/2017 EUGENIA DYER DO Ot R41.82 ALTERED MENTAL STATUS, UNSPECIFIED 11/24/2017 CRISS WHITFIELD MD Ot R91.1 SOLITARY PULMONARY NODULE 11/24/2017 EUGENIA DYER DO Ot M19.90 UNSPECIFIED OSTEOARTHRITIS, UNSPECIFIED 11/24/2017 EUGENIA DYER DO, Ot M25.551 PAIN IN RIGHT HIP 11/24/2017 EUGENIA DYER DO, Ot Z91.81 HISTORY OF FALLING 11/24/2017 EUGENIA DYER DO, Ot G47.33 OBSTRUCTIVE SLEEP APNEA (ADULT) (PEDIATR 11/24/2017 EUGENIA DYER DO, Ot G47.33 OBSTRUCTIVE SLEEP APNEA (ADULT) (PEDIATR 11/30/2017 EUGENIA DYER DO, Ot G47.33 OBSTRUCTIVE SLEEP APNEA (ADULT) (PEDIATR 12/05/2017 EUGENIA DYER DO, Ot G47.33 OBSTRUCTIVE SLEEP APNEA (ADULT) (PEDIATR 12/05/2017 EUGENIA DYER DO, Ot G47.33 OBSTRUCTIVE SLEEP APNEA (ADULT) (PEDIATR 12/07/2017 EUGENIA DYER DO, Ot G47.33 OBSTRUCTIVE SLEEP APNEA (ADULT) (PEDIATR 12/29/2017 EUGENIA DYER DO, Ot G47.33 OBSTRUCTIVE SLEEP APNEA (ADULT) (PEDIATR 01/02/2018 ROSEANN BLAIR, CRISS S Ot 793.1 1 SOLITARY PULMONARY NODULE 01/02/2018 CRISS WHITFIELD MD S Ot I27.2 OTHER SECONDARY PULMONARY HYPERTENSION 01/02/2018 ROSEANN BLAIR, CRISS S Ot I38 ENDOCARDITIS, VALVE UNSPECIFIED 01/02/2018 CRISS WHITFIELD MD S Ot I50.9 HEART FAILURE, UNSPECIFIED 01/02/2018 HEIDI ART, ALI RUBENSP CCDS Ot E78.4 OTHER HYPERLIPIDEMIA 01/02/2018 HEIDI BLAIR FACC, ALI FACP CCDS Ot G47.33 OBSTRUCTIVE SLEEP APNEA (ADULT) (PEDIATR 01/02/2018 HEIDI BLAIR FACC, ALI FACP CCDS Ot I10 ESSENTIAL (PRIMARY) HYPERTENSION 01/02/2018 HEIDI BLAIR FACC, ALI FACP CCDS Ot I25.10 ATHSCL HEART DISEASE OF [place] CORONARY 01/02/2018 HEIDI BLAIR FACC, ALI FACP CCDS Ot I27.0 PRIMARY PULMONARY HYPERTENSION 01/02/2018 HEIDI BLAIR FACC, ALI FACP CCDS Ot I65.23 OCCLUSION AND STENOSIS OF BILATERAL WILD 01/02/2018 CRISS WHITFIELD MD S Ot I27.2 OTHER SECONDARY PULMONARY HYPERTENSION 01/02/2018 CRISS WHITFIELD MD S Ot I38 ENDOCARDITIS, VALVE UNSPECIFIED 01/02/2018 CRISS WHITFIELD MD S Ot I50.9 HEART FAILURE, UNSPECIFIED 01/02/2018 CRISS WHITFIELD MD S Ot R91.1 SOLITARY PULMONARY NODULE 01/02/2018 EUGENIA DYER DO Ot Z12.31 ENCNTR SCREEN MAMMOGRAM FOR MALIGNANT NE 01/02/2018 EUGENIA DYER DO Ot E04.2 NONTOXIC MULTINODULAR GOITER 01/02/2018 EUGENIA DYER DO, Ot M85.89 OTH DISRD OF BONE DENSITY AND STRUCTURE, 01/02/2018 EUGENIA DYER DO Ot R07.9 CHEST PAIN, UNSPECIFIED 01/02/2018 EUGENIA DYER DO, Ot I25.10 ATHSCL HEART DISEASE OF [place] CORONARY 01/02/2018 EUGENIA DYER DO, Ot R07.9 CHEST PAIN, UNSPECIFIED 01/02/2018 EUGENIA DYER DO, Ot N28.1 CYST OF KIDNEY, ACQUIRED 01/02/2018 EUGENIA DYER DO, Ot S89.92XA UNSPECIFIED INJURY OF LEFT LOWER LEG, IN 01/02/2018 EUGENIA DYER DO, Ot X58.XXXA EXPOSURE TO OTHER SPECIFIED FACTORS, INI 01/02/2018 EUGENIA DYER DO Ot Y99.8 OTHER EXTERNAL CAUSE STATUS 01/02/2018 EUGENIA DYER DO, Ot Z96.652 PRESENCE OF LEFT ARTIFICIAL KNEE JOINT 01/02/2018 EUGENIA DYER DO Ot J34.89 OTHER SPECIFIED DISORDERS OF NOSE AND NA 01/02/2018 EUGENIA DYER DO Ot R41.82 ALTERED MENTAL STATUS, UNSPECIFIED 01/02/2018 CRISS WHITFIELD MD Ot R91.1 SOLITARY PULMONARY NODULE 01/02/2018 EUGENIA DYER DO Ot M19.90 UNSPECIFIED OSTEOARTHRITIS, UNSPECIFIED 01/02/2018 EUGENIA DYER DO Ot M25.551 PAIN IN RIGHT HIP 01/02/2018 EUGENIA DYER DO Ot Z91.81 HISTORY OF FALLING 01/02/2018 EUGENIA DYER DO Ot G47.33 OBSTRUCTIVE SLEEP APNEA (ADULT) (PEDIATR 01/04/2018 EUGENIA DYER DO Ot G47.33 OBSTRUCTIVE SLEEP APNEA (ADULT) (PEDIATR 01/04/2018 EUGENIA DYER DO Ot R09.02 HYPOXEMIA 01/05/2018 EUGENIA DYER DO, Ot G47.33 OBSTRUCTIVE SLEEP APNEA (ADULT) (PEDIATR 01/05/2018 EUGENIA DYER DO Ot R09.02 HYPOXEMIA 01/09/2018 EUGENIA DYER DO, Ot G47.33 OBSTRUCTIVE SLEEP APNEA (ADULT) (PEDIATR 01/09/2018 EUGENIA DYER DO Ot R09.02 HYPOXEMIA 01/19/2018 BAILIGIA CARRION SAMPLE CLERK Ot R00.2 PALPITATIONS 01/19/2018 BAIMALIGIA SAMPLE CLERK Ot R00.2 PALPITATIONS 01/24/2018 BAILIGIA CARRION SAMPLE CLERK Ot R00.2 PALPITATIONS 01/28/2018 BAILIGIA CARRION SAMPLE CLERK Ot R00.2 PALPITATIONS 02/15/2018 CRISS WHITFIELD MD S Ot I08.1 RHEUMATIC DISORDERS OF BOTH MITRAL AND T 02/15/2018 CRISS WHITFIELD MD S Ot 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 03/06/2018 EUGENIA DYER DO Ot K59.00 CONSTIPATION, UNSPECIFIED 03/07/2018 CRISS WHITFIELD MD S Ot I08.1 RHEUMATIC DISORDERS OF BOTH MITRAL AND T 03/07/2018 CRISS WHITFIELD MD S Ot 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 03/16/2018 CRISS WHITFIELD MD S Ot I08.1 RHEUMATIC DISORDERS OF BOTH MITRAL AND T 03/16/2018 ROSEANN BLAIR, CRISS Carpio Ot 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 03/31/2018 EUGENIA DYER DO Ot K59.00 CONSTIPATION, UNSPECIFIED 09/21/2018 MANISHA HORTA, EUGENIA Cason Ot M48.061 SPINAL STENOSIS, LUMBAR REGION WITHOUT N 10/23/2018 DYER DO, EUGENIA Cason Ot M48.061 SPINAL STENOSIS, LUMBAR REGION WITHOUT N 11/13/2018 DYER DO, EUGENIA Cason Ot M48.061 SPINAL STENOSIS, LUMBAR REGION WITHOUT N 11/15/2018 DYER DO, EUGENIA Cason Ot M48.061 SPINAL STENOSIS, LUMBAR REGION WITHOUT N 11/19/2018 DYER DO, EUGENIA Cason Ot M48.061 SPINAL STENOSIS, LUMBAR REGION WITHOUT N 01/16/2019 DYER DO, EUGENIA Cason Ot M48.061 SPINAL STENOSIS, LUMBAR REGION WITHOUT N 01/22/2019 EUGENIA DYER DO Ot I34.0 NONRHEUMATIC MITRAL (VALVE) INSUFFICIENC 01/22/2019 EUGENIA DYER DO Ot I50.812 CHRONIC RIGHT HEART FAILURE 01/22/2019 EUGENIA DYER DO Ot I51.7 CARDIOMEGALY 02/07/2019 EUGENIA DYER DO Ot I34.0 NONRHEUMATIC MITRAL (VALVE) INSUFFICIENC 02/07/2019 EUGENIA DYER DO Ot I50.812 CHRONIC RIGHT HEART FAILURE 02/07/2019 EUGENIA DYER DO Ot I51.7 CARDIOMEGALY 02/15/2019 EUGENIA DYER DO Ot I10 ESSENTIAL (PRIMARY) HYPERTENSION 02/19/2019 EUGENIA DYER DO, Ot I25.10 ATHSCL HEART DISEASE OF [place] CORONARY 02/21/2019 EUGENIA DYER DO Ot G47.33 OBSTRUCTIVE SLEEP APNEA (ADULT) (PEDIATR 02/21/2019 EUGENIA DYER DO Ot I10 ESSENTIAL (PRIMARY) HYPERTENSION 02/21/2019 EUGENIA DYER DO Ot I25.10 ATHSCL HEART DISEASE OF [place] CORONARY 02/21/2019 EUGENIA DYER DO Ot I27.20 PULMONARY HYPERTENSION, UNSPECIFIED 02/21/2019 EUGENIA DYER DO Ot N28.1 CYST OF KIDNEY, ACQUIRED 03/20/2019 MANISHA DOEUGENIA Ot I25.10 ATHSCL HEART DISEASE OF [place] CORONARY 03/20/2019 EUGENIA DYER DO Ot G47.33 OBSTRUCTIVE SLEEP APNEA (ADULT) (PEDIATR 03/20/2019 DYER DOEUGENIA Ot I10 ESSENTIAL (PRIMARY) HYPERTENSION 03/20/2019 EUGENIA DYER DO Ot I25.10 ATHSCL HEART DISEASE OF [place] CORONARY 03/20/2019 DYEREUGENIA BRIGGS DO Ot I27.20 PULMONARY HYPERTENSION, UNSPECIFIED 03/20/2019 MANISHA DOEUGENIA Ot N28.1 CYST OF KIDNEY, ACQUIRED 04/01/2019 CRISS WHITFIELD MD S Ot I27.2 1 SECONDARY PULMONARY ARTERIAL HYPERTENSIO 04/01/2019 RIVIN WHITFIELD MDID S Ot I50.9 HEART FAILURE, UNSPECIFIED 04/01/2019 IRVIN WHITFIELD MDID S Ot I51.7 CARDIOMEGALY 04/01/2019 EUGENIA DYER DO Ot G47.33 OBSTRUCTIVE SLEEP APNEA (ADULT) (PEDIATR 04/01/2019 DYER DOEUGENIA Ot I10 ESSENTIAL (PRIMARY) HYPERTENSION 04/01/2019 EUGENIA DYER DO Ot I25.10 ATHSCL HEART DISEASE OF [place] CORONARY 04/01/2019 EUGENIA DYER DO Ot I27.20 PULMONARY HYPERTENSION, UNSPECIFIED 04/01/2019 EUGENIA DYER DO Ot N28.1 CYST OF KIDNEY, ACQUIRED 04/04/2019 CRISS WHITFIELD MD S Ot I27.2 1 SECONDARY PULMONARY ARTERIAL HYPERTENSIO 04/04/2019 IRVIN WHITFIELD MDID S Ot I50.9 HEART FAILURE, UNSPECIFIED 04/04/2019 ROSEANN BLAIR CRISS S Ot I51.7 CARDIOMEGALY 06/26/2019 EUGENIA DYER DO Ot 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 07/13/2019 EUGENIA DYER DO Ot 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 10/11/2019 EUGENIA DYER DO Ot M48.061 SPINAL STENOSIS, LUMBAR REGION WITHOUT N 10/11/2019 EUGENIA DYER DO, Ot M48.061 SPINAL STENOSIS, LUMBAR REGION WITHOUT N 10/12/2019 GIL RM APRN Ot E78.00 PURE HYPERCHOLESTEROLEMIA, UNSPECIFIED 10/12/2019 GIL RM APRN Ot I10 ESSENTIAL (PRIMARY) HYPERTENSION 10/12/2019 GIL RM APRN, Ot I25.10 ATHSCL HEART DISEASE OF [place] CORONARY 10/12/2019 GIL RM APRN Ot K21 .9 GASTRO-ESOPHAGEAL REFLUX DISEASE WITHOUT 10/12/2019 GIL RM APRN Ot R04 .0 EPISTAXIS 10/12/2019 GIL RM APRN Ot R40.2142 COMA SCALE, EYES OPEN, SPONTANEOUS, EMR 10/12/2019 GIL RM APRN Ot R40.2252 COMA SCALE, BEST VERBAL RESPONSE, ORIENT 10/12/2019 GIL RM APRN Ot R40.2362 COMA SCALE, BEST MOTOR RESPONSE, OBEYS C 10/12/2019 GIL RM APRN Ot S01.81XA LACERATION W/O FOREIGN BODY OF OTH PART 10/12/2019 GIL RM APRN Ot W01.198A FALL SAME LEV FROM SLIP/TRIP W STRIKE AG 10/12/2019 GIL RM APRN Ot Z23 ENCOUNTER FOR IMMUNIZATION 10/12/2019 GIL RM APRN Ot Z79.02 GROUP HOME (CURRENT) USE OF ANTITHROMBOTI 10/12/2019 GIL RM APRN Ot Z79.82 GROUP HOME (CURRENT) USE OF ASPIRIN 10/12/2019 GIL RM APRN Ot Z82.49 FAMILY HX OF ISCHEM HEART DIS AND OTH DI 10/12/2019 GIL RM APRN Ot Z88 .8 ALLERGY STATUS TO [facility] DRUG/MEDS/BIOL SUB 10/12/2019 GIL RM APRN Ot Z95 .5 PRESENCE OF CORONARY ANGIOPLASTY IMPLANT Procedures There is no data. Results Test Result Range Complete blood count (CBC) with automate d white blood cell (WBC) differential - 04/22/16 12:34 Blood leukocytes automated count (number/volume) 6.2 10*3/uL 4.3-11.0 Blood erythrocytes automated count (number/volume) 4.66 10*6/uL 4.35-5.85 Venous blood hemoglobin measurement (mass/volume) 14.1 g/dL 11.5-16.0 Blood hematocrit (volume fraction) 43 % 35-52 Automated erythrocyte mean corpuscular volume 92 [ foz_us] 80-99 Automated erythrocyte mean corpuscular h emoglobin (mass per erythrocyte) 30 pg 25-34 Automated erythrocyte mean corpuscular h emoglobin concentration measurement (mass/volume) 33 g/dL 32-36 Automated erythrocyte distribution width ratio 12. 8 % 10.0- 14.5 Automated blood platelet count (count/volume) 223 10*3/uL 130-400 Automated blood platelet mean volume measurement 10.6 [foz_us] 7.4-10.4 Automated blood neutrophils/100 leukocytes 64 % 42-75 Automated blood lymphocytes/100 leukocytes 26 % 12-44 Blood monocytes/100 leukocytes 7 % 0-12 Automated blood eosinophils/100 leukocytes 0 % 0-10 Automated blood basophils/100 leukocytes 3 % 0-10 Blood neutrophils automated count (number/volume) 3.9 10*3 1.8-7.8 Blood lymphocytes automated count (number/volume) 1.6 10*3 1.0-4.0 Blood monocytes automated count (number/volume) 0. 4 10*3 0.0-1.0 Automated eosinophil count 0.0 10*3/uL 0 .0-0.3 Automated blood basophil count (count/volume) 0.2 10*3/uL 0.0-0.1 Blood manual differential performed dete ction - 04/22/16 12:34 Blood monocytes/100 leukocytes 9 % NRG Manual blood segmented neutrophils/100 leukocytes 62 % NRG Blood band neutrophils/100 leukocytes 0 % NRG Manual blood lymphocytes/100 leukocytes 28 % NRG Manual eosinophils/100 leukocytes in nose 0 % NRG Manual blood basophils/100 leukocytes 1 % NRG Blood erythrocyte morphology finding identification [facility] Comprehensive metabolic panel - 04/22/16 12:34 Serum or plasma sodium measurement (moles/volume) 141 mmol/L 135-145 Serum or plasma potassium measurement (moles/volume) 3.4 mmol/L 3.6-5.0 Serum or plasma chloride measurement (moles/volume) 104 mmol/L 98-107 Carbon dioxide 26 mmol/L 21-32 Serum or plasma anion gap determination (moles/volume) 11 mmol/L 5-14 Serum or plasma urea nitrogen measurement (mass/volume ) 20 mg/dL 7-18 Serum or plasma creatinine measurement (mass/volume) 0.83 mg/dL 0.60-1.30 Serum or plasma urea nitrogen/creatinine mass ratio 24 NRG Serum or plasma creatinine measurement w ith calculation of estimated glomerular filtration rate > NRG Serum or plasma glucose measurement (mass/volume) 97 mg/dL 70-105 Serum or plasma calcium measurement (mass/volume) 9.9 mg/dL 8.5-10.1 Serum or plasma total bilirubin measurement (mass/volu me) 0.4 mg/dL 0.1-1.0 Serum or plasma alkaline phosphatase tee surement (enzymatic activity/volume) 49 U/L 40-136 Serum or plasma aspartate aminotransfera se measurement (enzymatic activity/volume) 17 U/L 5-34 Serum or plasma alanine aminotransferase measurement (enzymatic activity/volume) 9 U/L 0-55 Serum or plasma protein measurement (mass/volume) 7.4 g/dL 6.4-8.2 Serum or plasma albumin measurement (mass/volume) 4.1 g/dL 3.2-4.5 Serum or plasma creatine kinase measurem ent (enzymatic activity/volume) - 04/22/16 12:34 Serum or plasma creatine kinase measurem ent (enzymatic activity/volume) 30 U/L 29-168 Serum or plasma troponin i.cardiac measu rement (mass/volume) - 04/22/16 12:34 Serum or plasma troponin i.cardiac measurement (mass/v olume) < ng/mL <0.30 Serum or plasma troponin i.cardiac measu rement (mass/volume) - 02/27/17 07:50 Serum or plasma troponin i.cardiac measurement (mass/v olume) < ng/mL <0.30 Complete blood count (CBC) with automate d white blood cell (WBC) differential - 02/28/17 08:18 Blood leukocytes automated count (number/volume) 5.8 10*3/uL 4.3-11.0 Blood erythrocytes automated count (number/volume) 4.59 10*6/uL 4.35-5.85 Venous blood hemoglobin measurement (mass/volume) 14.1 g/dL 11.5-16.0 Blood hematocrit (volume fraction) 43 % 35-52 Automated erythrocyte mean corpuscular volume 93 [ foz_us] 80-99 Automated erythrocyte mean corpuscular h emoglobin (mass per erythrocyte) 31 pg 25-34 Automated erythrocyte mean corpuscular h emoglobin concentration measurement (mass/volume) 33 g/dL 32-36 Automated erythrocyte distribution width ratio 12. 3 % 10.0- 14.5 Automated blood platelet count (count/volume) 204 10*3/uL 130-400 Automated blood platelet mean volume measurement 10.6 [foz_us] 7.4-10.4 Automated blood neutrophils/100 leukocytes 56 % 42-75 Automated blood lymphocytes/100 leukocytes 31 % 12-44 Blood monocytes/100 leukocytes 9 % 0-12 Automated blood eosinophils/100 leukocytes 2 % 0-10 Automated blood basophils/100 leukocytes 2 % 0-10 Blood neutrophils automated count (number/volume) 3.2 10*3 1.8-7.8 Blood lymphocytes automated count (number/volume) 1.8 10*3 1.0-4.0 Blood monocytes automated count (number/volume) 0. 5 10*3 0.0-1.0 Automated eosinophil count 0.1 10*3/uL 0 .0-0.3 Automated blood basophil count (count/volume) 0.1 10*3/uL 0.0-0.1 PT panel in platelet poor plasma by coag ulation assay - 02/28/17 08:18 Prothrombin time (PT) in platelet poor plasma by coagu lation assay 12.1 s 12.2-14.7 INR in platelet poor plasma or blood by coagulation as say 0.9 0.8-1.4 Activated partial thromboplastin time (a PTT) in platelet poor plasma bycoagulation assay - 02/28/17 08:18 Activated partial thromboplastin time (a PTT) in platelet poor plasma bycoagulation assay 28 s 24-35 Comprehensive metabolic panel - 02/28/17 08:18 Serum or plasma sodium measurement (moles/volume) 143 mmol/L 135-145 Serum or plasma potassium measurement (moles/volume) 3.9 mmol/L 3.6-5.0 Serum or plasma chloride measurement (moles/volume) 103 mmol/L 98-107 Carbon dioxide 31 mmol/L 21-32 Serum or plasma anion gap determination (moles/volume) 9 mmol/L 5-14 Serum or plasma urea nitrogen measurement (mass/volume ) 12 mg/dL 7-18 Serum or plasma creatinine measurement (mass/volume) 0.81 mg/dL 0.60-1.30 Serum or plasma urea nitrogen/creatinine mass ratio 15 NRG Serum or plasma creatinine measurement w ith calculation of estimated glomerular filtration rate > NRG Serum or plasma glucose measurement (mass/volume) 101 mg/dL 70-105 Serum or plasma calcium measurement (mass/volume) 10.1 mg/dL 8.5-10.1 Serum or plasma total bilirubin measurement (mass/volu me) 0.4 mg/dL 0.1-1.0 Serum or plasma alkaline phosphatase tee surement (enzymatic activity/volume) 44 U/L 40-136 Serum or plasma aspartate aminotransfera se measurement (enzymatic activity/volume) 20 U/L 5-34 Serum or plasma alanine aminotransferase measurement (enzymatic activity/volume) 12 U/L 0-55 Serum or plasma protein measurement (mass/volume) 7.5 g/dL 6.4-8.2 Serum or plasma albumin measurement (mass/volume) 4.1 g/dL 3.2-4.5 Magnesium - 02/28/17 08:18 Magnesium 1.8 mg/dL 1.8-2.4 Myoglobin, serum - 02/28/17 08:18 Myoglobin, serum 52.8 ng/mL 10.0-92.0 Serum or plasma troponin i.cardiac measu rement (mass/volume) - 02/28/17 08:18 Serum or plasma troponin i.cardiac measurement (mass/v olume) < ng/mL <0.30 Myoglobin, serum - 02/28/17 08:18 Myoglobin, serum 52.8 ng/mL 10.0-92.0 Serum or plasma lithium measurement (mol es/volume) - 02/28/17 08:18 BNP level 170.5 pg/mL <100.0 Serum or plasma troponin i.cardiac measu rement (mass/volume) - 02/28/17 10:01 Serum or plasma troponin i.cardiac measurement (mass/v olume) < ng/mL <0.30 Complete blood count (CBC) with automate d white blood cell (WBC) differential - 10/10/17 06:40 Blood leukocytes automated count (number/volume) 5.9 10*3/uL 4.3-11.0 Blood erythrocytes automated count (number/volume) 4.61 10*6/uL 4.35-5.85 Venous blood hemoglobin measurement (mass/volume) 14.7 g/dL 11.5-16.0 Blood hematocrit (volume fraction) 41 % 35-52 Automated erythrocyte mean corpuscular volume 89 [ foz_us] 80-99 Automated erythrocyte mean corpuscular h emoglobin (mass per erythrocyte) 32 pg 25-34 Automated erythrocyte mean corpuscular h emoglobin concentration measurement (mass/volume) 36 g/dL 32-36 Automated erythrocyte distribution width ratio 12. 1 % 10.0- 14.5 Automated blood platelet count (count/volume) 304 10*3/uL 130-400 Automated blood platelet mean volume measurement 9.7 [foz_us] 7.4-10.4 Automated blood neutrophils/100 leukocytes 53 % 42-75 Automated blood lymphocytes/100 leukocytes 34 % 12-44 Blood monocytes/100 leukocytes 10 % 0-12 Automated blood eosinophils/100 leukocytes 1 % 0-10 Automated blood basophils/100 leukocytes 1 % 0-10 Blood neutrophils automated count (number/volume) 3.1 10*3 1.8-7.8 Blood lymphocytes automated count (number/volume) 2.0 10*3 1.0-4.0 Blood monocytes automated count (number/volume) 0. 6 10*3 0.0-1.0 Automated eosinophil count 0.1 10*3/uL 0 .0-0.3 Automated blood basophil count (count/volume) 0.1 10*3/uL 0.0-0.1 PT panel in platelet poor plasma by coag ulation assay - 10/10/17 06:40 Prothrombin time (PT) in platelet poor plasma by coagu lation assay 12.9 s 12.2-14.7 INR in platelet poor plasma or blood by coagulation as say 1.0 0.8-1.4 Activated partial thromboplastin time (a PTT) in platelet poor plasma bycoagulation assay - 10/10/17 06:40 Activated partial thromboplastin time (a PTT) in platelet poor plasma bycoagulation assay 28 s 24-35 Comprehensive metabolic panel - 10/10/17 06:40 Serum or plasma sodium measurement (moles/volume) 131 mmol/L 135-145 Serum or plasma potassium measurement (moles/volume) 3.5 mmol/L 3.6-5.0 Serum or plasma chloride measurement (moles/volume) 93 mmol/L 98-107 Carbon dioxide 27 mmol/L 21-32 Serum or plasma anion gap determination (moles/volume) 11 mmol/L 5-14 Serum or plasma urea nitrogen measurement (mass/volume ) 9 mg/dL 7-18 Serum or plasma creatinine measurement (mass/volume) 0.79 mg/dL 0.60-1.30 Serum or plasma urea nitrogen/creatinine mass ratio 11 NRG Serum or plasma creatinine measurement w ith calculation of estimated glomerular filtration rate > NRG Serum or plasma glucose measurement (mass/volume) 96 mg/dL 70-105 Serum or plasma calcium measurement (mass/volume) 10.4 mg/dL 8.5-10.1 Serum or plasma total bilirubin measurement (mass/volu me) 0.7 mg/dL 0.1-1.0 Serum or plasma alkaline phosphatase tee surement (enzymatic activity/volume) 45 U/L 40-136 Serum or plasma aspartate aminotransfera se measurement (enzymatic activity/volume) 18 U/L 5-34 Serum or plasma alanine aminotransferase measurement (enzymatic activity/volume) 10 U/L 0-55 Serum or plasma protein measurement (mass/volume) 7.9 g/dL 6.4-8.2 Serum or plasma albumin measurement (mass/volume) 4.5 g/dL 3.2-4.5 Magnesium - 10/10/17 06:40 Magnesium 1.8 mg/dL 1.8-2.4 Serum or plasma troponin i.cardiac measu rement (mass/volume) - 10/10/17 06:40 Serum or plasma troponin i.cardiac measurement (mass/v olume) < ng/mL <0.30 Myoglobin, serum - 10/10/17 06:40 Myoglobin, serum 43.7 ng/mL 10.0-92.0 Lipase - 10/10/17 06:40 Lipase 16 U/L 8-78 Serum or plasma troponin i.cardiac measu rement (mass/volume) - 10/10/17 10:22 Serum or plasma troponin i.cardiac measurement (mass/v olume) < ng/mL <0.30 Methicillin resistant Staphylococcus aur eus (MRSA) screening culture - 06/21/19 12:10 Methicillin resistant Staphylococcus aureus (MRSA) scr eening culture NEG NRG Complete blood count (CBC) with automate d white blood cell (WBC) differential - 10/16/19 13:33 Blood leukocytes automated count (number/volume) 5.0 10*3/uL 4.3-11.0 Blood erythrocytes automated count (number/volume) 4.19 10*6/uL 4.35-5.85 Venous blood hemoglobin measurement (mass/volume) 13.1 g/dL 11.5-16.0 Blood hematocrit (volume fraction) 40 % 35-52 Automated erythrocyte mean corpuscular volume 95 [ foz_us] 80-99 Automated erythrocyte mean corpuscular h emoglobin (mass per erythrocyte) 31 pg 25-34 Automated erythrocyte mean corpuscular h emoglobin concentration measurement (mass/volume) 33 g/dL 32-36 Automated erythrocyte distribution width ratio 12. 7 % 10.0- 14.5 Automated blood platelet count (count/volume) 241 10*3/uL 130-400 Automated blood platelet mean volume measurement 10.6 [foz_us] 7.4-10.4 Automated blood neutrophils/100 leukocytes 65 % 42-75 Automated blood lymphocytes/100 leukocytes 23 % 12-44 Blood monocytes/100 leukocytes 9 % 0-12 Automated blood eosinophils/100 leukocytes 1 % 0-10 Automated blood basophils/100 leukocytes 1 % 0-10 Blood neutrophils automated count (number/volume) 3.3 10*3 1.8-7.8 Blood lymphocytes automated count (number/volume) 1.2 10*3 1.0-4.0 Blood monocytes automated count (number/volume) 0. 5 10*3 0.0-1.0 Automated eosinophil count 0.1 10*3/uL 0 .0-0.3 Automated blood basophil count (count/volume) 0.1 10*3/uL 0.0-0.1 Comprehensive metabolic panel - 10/16/19 13:33 Serum or plasma sodium measurement (moles/volume) 137 mmol/L 135-145 Serum or plasma potassium measurement (moles/volume) 3.9 mmol/L 3.6-5.0 Serum or plasma chloride measurement (moles/volume) 101 mmol/L 98-107 Carbon dioxide 26 mmol/L 21-32 Serum or plasma anion gap determination (moles/volume) 10 mmol/L 5-14 Serum or plasma urea nitrogen measurement (mass/volume ) 17 mg/dL 7-18 Serum or plasma creatinine measurement (mass/volume) 0.90 mg/dL 0.60-1.30 Serum or plasma urea nitrogen/creatinine mass ratio 19 NRG Serum or plasma creatinine measurement w ith calculation of estimated glomerular filtration rate 60 NRG Serum or plasma glucose measurement (mass/volume) 143 mg/dL 70-105 Serum or plasma calcium measurement (mass/volume) 9.5 mg/dL 8.5-10.1 Serum or plasma total bilirubin measurement (mass/volu me) 0.4 mg/dL 0.1-1.0 Serum or plasma alkaline phosphatase tee surement (enzymatic activity/volume) 38 U/L 40-136 Serum or plasma aspartate aminotransfera se measurement (enzymatic activity/volume) 20 U/L 5-34 Serum or plasma alanine aminotransferase measurement (enzymatic activity/volume) 8 U/L 0-55 Serum or plasma protein measurement (mass/volume) 7.1 g/dL 6.4-8.2 Serum or plasma albumin measurement (mass/volume) 3.9 g/dL 3.2-4.5 CALCIUM CORRECTED 9.6 mg/dL 8.5-10.1 Complete urinalysis with reflex to cultu re - 10/16/19 14:17 Urine color determination YELLOW NRG Urine clarity determination CLEAR NR G Urine pH measurement by test strip 7.5 5-9 Specific gravity of urine by test strip 1.010 1.016-1.022 Urine protein assay by test strip, semi-quantitative NEGATIVE NEGATIVE Urine glucose detection by automated test strip NE GATIVE NEGATIVE Erythrocytes detection in urine sediment by light micr oscopy NEGATIVE NEGATIVE Urine ketones detection by automated test strip NE GATIVE NEGATIVE Urine nitrite detection by test strip NEGATIVE NEGATIVE Urine total bilirubin detection by test strip NEGA TIVE NEGATIVE Urine urobilinogen measurement by automated test strip (mass/volume) 0.2 mg/dL < = 1.0 Urine leukocyte esterase detection by dipstick 2+ NEGATIVE Automated urine sediment erythrocyte cou nt by microscopy (number/high power field) [HPF] NRG Automated urine sediment leukocyte count by microscopy (number/high power field) [HPF] NRG Bacteria detection in urine sediment by light microsco py TRACE NRG Squamous epithelial cells detection in u rine sediment by light microscopy 0-2 NRG Crystals detection in urine sediment by light microsco py PRESENT NRG Casts detection in urine sediment by light microscopy NONE NRG Mucus detection in urine sediment by light microscopy NEGATIVE NRG Complete urinalysis with reflex to culture YES NRG Amorphous sediment detection in urine sediment by ligh t microscopy FEW ANA PHOSPHATE NRG Encounters ACCT No. Visit Date/Time Discharge Status Pt. Type Provider Facility Loc./Unit Complaint [id number] 10/16/2019 12:52:00 15:05:00 DIS Emergency GIL RM APRN [facility] ER FALL [id number] 10/09/2019 08:43:00 11:08:00 DIS Outpatient GIL RM APRN [facility] ER FALL, HIT HEAD, NOSE LA CERATION [id number] 06/21/2019 11:59:00 23:59:59 CLS Outpatient EUGENIA DYER DO [facility] LAB MRSA CARIER [id number] 03/07/2019 10:40:00 23:59:59 CLS Outpatient CRISS WHITFIELD MD [facility] RAD PULMONARY ARTERIAL HYPERTENSION,RIGHT HEART FAILUR [id number] 02/18/2019 08:35:00 23:59:59 CLS Outpatient EUGENIA DYER DO [facility] RAD HYPERTENSION,ATHEROSCLEROTIC HEART DISEASE [id number] 02/15/2019 06:39:00 23:59:59 CLS Outpatient EUGENIA DYER DO [facility] CARD ATHEROSCLEROTIC HEART DISEASE OF [place] CORONARY [id number] 01/18/2019 10:47:00 23:59:59 CLS Outpatient EUGENIA DYER DO [facility] CARD CHRONIC RT HEAR T FAILURE [id number] 11/14/2018 00:12:00 23:59:59 CLS Preadmit EUGENIA DYER DO [facility] REHAB LUMBAR STENOSIS [id number] 11/02/2018 14:54:00 00:01:00 DIS Outpatient EUGENIA DYER DO [facility] REHAB LUMBAR STENOSIS [id number] 03/05/2018 11:33:00 23:59:59 CLS Outpatient EUGENIA DYER DO [facility] RAD K59.09 [id number] 02/13/2018 12:56:00 23:59:59 CLS Outpatient CRISS WIHTFIELD MD [facility] CARD PULMONARY ARTERIAL HTN, VALVULAR HEART DISEASE [id number] 01/22/2018 07:57:00 23:59:59 CLS Outpatient LIGIA ARAUJO ANTONIO [facility] CARD PALPITATIONS [id number] 01/03/2018 19:45:00 05:25:00 DIS Outpatient EUGENIA DYER DO [facility] SLEEP AAMIR [id number] 11/29/2017 20:57:00 05:50:00 DIS Outpatient EUGENIA DYER DO [facility] SLEEP AAMIR [id number] 10/10/2017 06:31:00 11:30:00 DIS Emergency LEA BLAIR, STERLING Cason [facility] ER CHEST UNCOMFORTABLE, NO T FEELING WELL,NOT EATING [id number] 07/13/2017 10:55:00 23:59:59 CLS Outpatient EUGENIA DYER DO [facility] RAD M15.9 [id number] 06/26/2017 08:34:00 018 23:59:59 CLS Outpatient CRISS WHITFIELD MD [facility] RAD LUNG NODULE [id number] 04/28/2017 10:08:00 018 12:12:00 DIS Outpatient EUGENIA DYER DO [facility] REHAB SPINAL STENOSIS ; LUMBAR REGION [id number] 03/29/2017 12:57:00 018 00:01:00 DIS Outpatient EUGENIA DYER DO [facility] REHAB SPINAL STENOSIS ; LUMBAR REGION [id number] 02/28/2017 11:25:00 017 23:59:59 CLS Outpatient DYER DO, EUGENIA J [facility] RAD MENTAL STATUS C DASH [id number] 02/28/2017 07:52:00 11:00:00 DIS Emergency KIMMY CULP MD [facility] ER BACK PAIN RADIA TING TO THE CHEST [id number] 02/27/2017 07:04:00 09:07:00 DIS Emergency KIMMY CULP MD [facility] ER LEFT UPPER BACK PAIN [id number] 12/30/2016 09:48:00 00:01:00 DIS Outpatient EUGENIA DYER DO [facility] REHAB SPINAL STENOSIS ; LUMBAR REGION [id number] 11/10/2016 12:36:00 017 23:59:59 CLS Outpatient EUGENIA DYER DO [facility] RAD TRAUMA [id number] 10/05/2016 12:46:00 017 23:59:59 CLS Outpatient EUGENIA DYER DO [facility] RAD L RENAL CYST [id number] 05/06/2016 06:58:00 017 23:59:59 CLS Outpatient EUGENIA DEYR DO [facility] CARD R07.9,I25.10 [id number] 04/28/2016 11:01:00 017 23:59:59 CLS Outpatient EUGENIA DYER DO [facility] RAD GOITER FOLLOW U P, MENOPAUSE [id number] 04/22/2016 12:16:00 017 23:59:59 CLS Outpatient EUGENIA DYER DO [facility] LAB R07.9 [id number] 02/02/2016 12:12:00 016 23:59:59 CLS Outpatient EUGENIA DYER DO [facility] RAD ROUTINE [id number] 12/22/2015 09:29:00 016 23:59:59 CLS Outpatient CRISS WHITFIELD MD [facility] RAD LUNG NODULE [id number] 11/20/2015 12:13:00 016 23:59:59 CLS Outpatient CRISS WHITFIELD MD [facility] RT PULMONARY HYPERTENSION [id number] 11/12/2015 12:16:00 016 23:59:59 CLS Outpatient HEIDI BLAIR FACAnny, NOEMI DE LA TORRE CC DS [facility] CARD CAD,CAROITD ARTERIAL DISEASE,HTN,HLP [id number] 11/10/2015 10:47:00 016 23:59:59 CLS Outpatient CRISS WHITFIELD MD [facility] CARD PULM HTN,RT HEART FAILU RE [id number] 10/28/2015 10:50:00 016 13:01:00 DIS Emergency KIMMY CULP MD [facility] ER PALPITATIONS/SH AKEY [id number] 08/21/2015 08:54:00 016 14:17:00 DIS Outpatient EUGENIA DYER DO [facility] REHAB LUMBAGO; LOW BA CK PAIN [id number] 12/16/2014 10:31:00 015 16:35:00 DIS Outpatient HEIDI BLAIR FACC, NOEMI DE LA TORRE CC DS [facility] CATH EXTREME FAT IGUE CAD SOB HTN [id number] 12/03/2014 13:50:00 23:59:59 CLS Outpatient CRISS WHITFIELD MD [facility] RAD PULMONARY NODULE [id number] 10/23/2014 14:32:00 23:59:59 CLS Outpatient CRISS WHITFIELD MD [facility] CARD [id number] 10/10/2014 14:01:00 23:59:59 CLS Outpatient CRISS WHITFIELD MD [facility] CARD [id number] 10/02/2014 12:48:00 23:59:59 CLS Outpatient CRISS WHITFIELD MD [facility] CARD [id number] 09/10/2014 10:30:00 015 14:18:00 DIS Outpatient EUGENIA DYER DO [facility] REHAB [id number] 09/05/2014 12:52:00 015 23:59:59 CLS Outpatient EUGENIA DYER DO [facility] RAD [id number] 05/15/2014 13:37:00 015 23:59:59 CLS Outpatient EUGENIA DYER DO [facility] REHAB [id number] 05/02/2014 00:40:00 015 14:35:00 DIS Inpatient DYER EUGENIA [facility] 4TH [id number] 04/18/2014 13:41:00 015 23:59:59 CLS Outpatient CRISS WHITFIELD MD [facility] CARD [id number] 04/11/2014 11:07:00 015 23:59:59 CLS Outpatient DYER EUGENIA [facility] RAD [id number] 11/19/2013 06:59:00 014 14:20:00 DIS Outpatient HEIDI BLAIR FACC, NOEMI DE LA TORRE CC DS [facility] CATH [id number] 10/28/2013 21:10:00 014 05:50:00 DIS Outpatient DYER EUGENIA [facility] SLEEP [id number] 10/02/2013 18:13:00 014 21:32:00 DIS Emergency TITA LOBO HORTAA Rose [facility] ER [id number] 09/30/2013 12:32:00 014 23:59:59 CLS Outpatient LIGIA ARAUJO [facility] CARD [id number] 06/05/2013 12:21:00 014 23:59:59 CLS Outpatient MANISAH HORTA EUGENIA Kamla [facility] RAD [id number] 04/18/2013 11:02:00 014 23:59:59 CLS Outpatient CRISS WHITFIELD MD [facility] CARD [id number] 01/31/2013 11:57:00 12:35:00 DIS Inpatient EUGENIA DYER DO [facility] 4TH [id number] 11/14/2012 14:40:00 23:59:59 CLS Outpatient EUGENIA DYER DO [facility] RAD [id number] 09/19/2012 11:50:00 23:59:59 CLS Outpatient EUGENIA DYER DO [facility] RAD [id number] 10/15/2019 13:05:[address] Outpatient EUGENIA DYER DO [facility] REHAB BACK AND LEG PAIN [id number] 07/03/2014 13:48:00 Document Registration [id number] 06/12/2014 00:00:00 Document Registration [id number] 07/03/2012 12:01:00 Document Registration
== END 2019-10-16 15:05 | disposition home or self-care (01) ==
LOC: EDUNIT# 12:50 → ER 12:52
DX: N39.0 Urinary tract infection, site not specified (principal); S00.83XD Contusion of other part of head, subsequent encounter; S05.11XD Contusion of eyeball and orbital tissues, right eye, subsequent encounter; I10 Essential (primary) hypertension; I25.10 Atherosclerotic heart disease of native coronary artery without angina pectoris; E78.00 Pure hypercholesterolemia, unspecified; K21.9 Gastro-esophageal reflux disease without esophagitis; Z88.8 Allergy status to other drugs, medicaments and biological substances; Z79.82 Long term (current) use of aspirin; Z79.02 Long term (current) use of antithrombotics/antiplatelets; Z95.5 Presence of coronary angioplasty implant and graft; Z82.49 Family history of ischemic heart disease and other diseases of the circulatory system; W19.XXXD Unspecified fall, subsequent encounter
CPT/HCPCS: 36415; 70450; 80053; 81000; 85025; 87088

== ENCOUNTER → 2019-12-18 | Outpatient (RCR) | payer MEDICARE, OTHER ==
[~2019-12-18] MED LIST changes: +CEFU250T80 PO
== END | disposition home or self-care (01) ==
PROVIDERS: ATTEND Internal Medicine
DX: M48.061 Spinal stenosis, lumbar region without neurogenic claudication (principal)

== ENCOUNTER → 2020-01-02 | Outpatient (CLI) | payer MEDICARE, OTHER | LOC: CARD 09:58 | PROVIDERS: ATTEND Internal Medicine Critical Care Medicine | DX: I34.0 Nonrheumatic mitral (valve) insufficiency (principal); G47.36 Sleep related hypoventilation in conditions classified elsewhere; G47.33 Obstructive sleep apnea (adult) (pediatric); I27.23 Pulmonary hypertension due to lung diseases and hypoxia | CPT/HCPCS: 93306 ==

== ENCOUNTER 2020-03-06 15:21 | Outpatient (RCR) | payer MEDICARE, OTHER | END 2020-03-19 | disposition home or self-care (01) | PROVIDERS: ATTEND Internal Medicine | DX: M48.062 Spinal stenosis, lumbar region with neurogenic claudication (principal) ==

== ENCOUNTER → 2021-02-04 | Outpatient (CLI) | payer MEDICARE, OTHER | LOC: CARD 10:23 | PROVIDERS: ATTEND Internal Medicine Critical Care Medicine | DX: I08.1 Rheumatic disorders of both mitral and tricuspid valves (principal); I11.9 Hypertensive heart disease without heart failure; I27.23 Pulmonary hypertension due to lung diseases and hypoxia; G47.33 Obstructive sleep apnea (adult) (pediatric) | CPT/HCPCS: 93306 ==

== ENCOUNTER → 2021-02-16 | Outpatient (CLI) | payer MEDICARE, OTHER ==
--- NOTE | 2021-02-16 11:42 | Diagnostic Imaging Report ---
INDICATION: Hypertension, atherosclerotic heart disease TECHNIQUE: Multiple real-time grayscale sonographic images, color and duplex Doppler images were obtained of the urinary system. Correlation: 02/18/2019 FINDINGS: Aortic velocity: 121 cm/sec. RIGHT kidney: Size: 11.0 x 6.6 x 6.1 cm Rather prominent but simple appearing cyst of the right kidney. Currently 5.9 x 4.0 x 4.4 cm (previously 3.5 x 2.8 x 2.8 cm). The right renal artery is visualized in its mid and distal aspect. Maximum renal artery velocity: 110cm/sec Maximum renal artery/aortic ratio: 0.9 LEFT kidney: Size: 13.0 x 4.1 x 6.6 cm Hypoechoic mass, consistent with a cyst inferior pole currently 4.5 x 4.4 x 4.6 cm (previously 8.9 x 6.2 x 6.1 cm). The left renal artery is visualized in its mid and distal aspect. Maximum renal artery velocity: 62cm/sec Maximum renal artery/aortic ratio: 0.5 Bladder: Unremarkable. IMPRESSION: 1. Bilateral renal cysts. 2. There is nonvisualization of the proximal aspect of the bilateral renal arteries. Visualized portions demonstrate no suggestion for renal artery stenosis. (RA/AO ratios > 3.0 may suggest potential hemodynamically significant stenosis.) Dictated by: Dictated on workstation # [id number]
== END ==
LOC: RAD 08:30
PROVIDERS: ATTEND Internal Medicine
DX: I10 Essential (primary) hypertension (principal); I27.21 Secondary pulmonary arterial hypertension; N28.1 Cyst of kidney, acquired; M99.04 Segmental and somatic dysfunction of sacral region; M99.03 Segmental and somatic dysfunction of lumbar region; I25.10 Atherosclerotic heart disease of native coronary artery without angina pectoris
CPT/HCPCS: 76770; 93975

== ENCOUNTER 2021-05-25 11:07 | Outpatient (RCR) | payer MEDICARE, OTHER | END 2021-05-31 | disposition home or self-care (01) | PROVIDERS: ATTEND Internal Medicine | DX: M19.90 Unspecified osteoarthritis, unspecified site (principal); I11.9 Hypertensive heart disease without heart failure ==

== ENCOUNTER → 2021-06-24 | Outpatient (CLI) | payer MEDICARE, OTHER | LOC: CARD 12:00 | PROVIDERS: ATTEND Internal Medicine Critical Care Medicine | DX: I34.0 Nonrheumatic mitral (valve) insufficiency (principal); I51.7 Cardiomegaly; I27.23 Pulmonary hypertension due to lung diseases and hypoxia | CPT/HCPCS: 93306 ==

== ENCOUNTER 2021-06-28 15:45 | Outpatient (RCR) | payer MEDICARE, OTHER | END 2021-07-01 | disposition home or self-care (01) | PROVIDERS: ATTEND Internal Medicine | DX: M19.90 Unspecified osteoarthritis, unspecified site (principal); I11.9 Hypertensive heart disease without heart failure ==

== ENCOUNTER 2021-07-28 15:59 | Outpatient (RCR) | payer MEDICARE, OTHER | END 2021-07-31 | disposition home or self-care (01) | PROVIDERS: ATTEND Internal Medicine | DX: M19.90 Unspecified osteoarthritis, unspecified site (principal); I11.9 Hypertensive heart disease without heart failure ==

== ENCOUNTER 2021-08-27 15:37 | Outpatient (RCR) | payer MEDICARE, OTHER | END 2021-08-31 | disposition home or self-care (01) | PROVIDERS: ATTEND Internal Medicine | DX: M19.90 Unspecified osteoarthritis, unspecified site (principal); I11.9 Hypertensive heart disease without heart failure ==

== ENCOUNTER 2021-09-10 15:43 | Outpatient (RCR) | payer MEDICARE, OTHER | END 2021-09-30 | disposition home or self-care (01) | PROVIDERS: ATTEND Internal Medicine | DX: M19.90 Unspecified osteoarthritis, unspecified site (principal); I11.9 Hypertensive heart disease without heart failure ==

== ENCOUNTER → 2021-12-06 | Outpatient (CLI) | payer MEDICARE, OTHER ==
[2021-12-06 16:11] LABS: BILIRUBIN,URINE NEGATIVE (NEGATIVE); CLARITY,URINE CLOUDY; COLOR,URINE YELLOW; GLUCOSE, URINE (UA) NEGATIVE (NEGATIVE); KETONES,URINE NEGATIVE (NEGATIVE); LEUKOCYTE ESTERASE ,URINE NEGATIVE (NEGATIVE); NITRITE,URINE NEGATIVE (NEGATIVE); PH,URINE 7.5 (5-9); PROTEIN,URINE NEGATIVE (NEGATIVE)
[2021-12-06 16:16] LABS: ALBUMIN 3.6 GM/DL (3.2-4.5)
[2021-12-06 16:17] LABS: POTASSIUM 3.7 MMOL/L (3.6-5.0)
[2021-12-06 16:18] LABS: CALCIUM 9.4 MG/DL (8.5-10.1)
[2021-12-06 16:19] LABS: TOTAL PROTEIN 6.6 GM/DL (6.4-8.2)
[2021-12-06 16:21] LABS: BILIRUBIN,TOTAL 0.3 MG/DL (0.1-1.0)
[2021-12-06 16:23] LABS: CREATININE SERUM 0.6 MG/DL (0.60-1.30)
[2021-12-06 16:24] LABS: AMORPHOUS SEDIMENT,UR FEW AMOR PHOSPHATE /LPF; BACTERIA,URINE NEGATIVE /HPF; SQUAMOUS EPITHELIAL CELL,UR RARE /HPF
[2021-12-06 16:45] LABS: TSH (THYROID ANALYZER) 0.24 UIU/ML (0.35-4.94)
[2021-12-06 17:22] LABS: FREE T4 (FREE THYROXINE) 1.14 NG/DL (0.70-1.48)
== END ==
LOC: HH 15:00
PROVIDERS: ATTEND Internal Medicine
DX: Z01.89 Encounter for other specified special examinations (principal)
CPT/HCPCS: 80053; 81000; 82533; 83930; 83935; 84300; 84436; 84439; 84443

== ENCOUNTER → 2022-06-07 | Outpatient (CLI) | payer MEDICARE, OTHER ==
[~2022-06-07] MED LIST changes: +CLOP-31 PO; -CLOP75TA69 PO
== END ==
LOC: CARD 10:11
PROVIDERS: ATTEND Internal Medicine Critical Care Medicine
DX: I08.3 Combined rheumatic disorders of mitral, aortic and tricuspid valves (principal); I27.23 Pulmonary hypertension due to lung diseases and hypoxia
CPT/HCPCS: 93306

== ENCOUNTER → 2022-07-13 | Outpatient (CLI) | payer MEDICARE, OTHER ==
[2022-07-13 17:38] LABS: BILIRUBIN,URINE NEGATIVE (NEGATIVE); CLARITY,URINE CLOUDY; COLOR,URINE YELLOW; GLUCOSE, URINE (UA) NEGATIVE (NEGATIVE); KETONES,URINE NEGATIVE (NEGATIVE); LEUKOCYTE ESTERASE ,URINE NEGATIVE (NEGATIVE); NITRITE,URINE NEGATIVE (NEGATIVE); PROTEIN,URINE NEGATIVE (NEGATIVE)
[2022-07-13 18:02] LABS: BACTERIA,URINE NEGATIVE /HPF
== END ==
LOC: LABNPT 17:34
PROVIDERS: ATTEND Internal Medicine
DX: N39.0 Urinary tract infection, site not specified (principal)
CPT/HCPCS: 81000

== ENCOUNTER → 2022-10-31 | Outpatient (CLI) | payer MEDICARE, OTHER ==
[2022-10-31 19:26] LABS: BILIRUBIN,URINE NEGATIVE (NEGATIVE); CLARITY,URINE CLEAR; COLOR,URINE YELLOW; GLUCOSE, URINE (UA) NEGATIVE (NEGATIVE); KETONES,URINE NEGATIVE (NEGATIVE); LEUKOCYTE ESTERASE ,URINE 1+ (NEGATIVE); NITRITE,URINE NEGATIVE (NEGATIVE); PROTEIN,URINE NEGATIVE (NEGATIVE)
[2022-10-31 19:42] LABS: RBC,URINE 50-100 /HPF
[2022-10-31 19:44] LABS: BACTERIA,URINE FEW /HPF; SQUAMOUS EPITHELIAL CELL,UR 0-2 /HPF
== END ==
LOC: LABNPT 19:22
PROVIDERS: ATTEND Internal Medicine
DX: Z01.89 Encounter for other specified special examinations (principal)
CPT/HCPCS: 81000; 87088

== ENCOUNTER 2022-11-22 07:34 | Inpatient (IN) | payer MEDICARE, OTHER ==
[~2022-11-22] VITALS: Ht 149.9 cm; Wt 71.4 kg
[2022-11-22] MEDS ORDERED: NS IV 500 ML 500 ML IV ONE (07:45)
--- NOTE | 2022-11-22 08:09 | ED Abdominal Pain ---
General Chief Complaint: Abdominal/GI Problems Stated Complaint: CONSTIPATION Nursing Triage Note: PT ARRIVED PER EMS, PT CO OF ABD PAIN AND BLOATING. PT HAS NOT HAD BM FOR APPROX 1 WEEK PT HAS DISTENDED ABD. RATES PAIN 12/11. PT ALSO CURRENTLY HAS UTI. PT HAS HX OF METABOLIC DELIRIUM. Source of Information: Patient Exam Limitations: No Limitations History of Present Illness Date Seen by Provider: Nov 22, 2022 Time Seen by Provider: 07:40 Initial Comments Patient here with complaint of significant abdominal pain and distention that has progressed since last night. Has had some constipation problems. Was seen at [facility] last week and admitted and did a little better. She was found to have a urinary tract infection and has been on cefdinir since Monday. Patient is complaining of significant abdominal pain lower. Unsure about urination. Patient does have a daughter who is positive for COVID in this patient was negative last week but there is still concerns about the this week. Denies nausea or vomiting. Daughter reports that she has not seen a significant stool for the last week but has had smears of stool whenever she goes to the bathroom. Timing/Duration: 1 Week, Getting Worse Severity/Quality: Moderate, Severe, Aching Location: Generalized Abdomen Radiation: No Radiation Activities at Onset: None Associated Symptoms: No Back Pain, No Fever/Chills, No Nausea/Vomiting, No Shortness of Air; Weakness Allergies and Home Medications Allergies Coded Allergies: clonidine (Verified Allergy, Unknown, 12/12/07) Patient Home Medication List Home Medication List Reviewed: Yes Alprazolam (Alprazolam) 0.25 Mg Tablet, 0.125-0.25 MG PO HS, (Reported) Entered as Reported by: LUCY AREVALO on 05/02/14 1004 Amoxicillin (Amoxicillin) 500 Mg Capsule, 500 MG PO TID Prescribed by: GIL RM on 10/09/19 1043 Aspirin (Aspirin Ec 81 Mg) 81 Mg Tabec, 81 MG PO HS, (Reported) Entered as Reported by: ANGIE WOLFE on 11/19/13 0802 Calcium Carbonate/Vitamin D3 (Calcium 600 + D Tablet) 1 Each Tablet, 1 EACH PO DAILY, (Reported) Entered as Reported by: RICKEY POOL on 12/16/14 1140 Cefuroxime Axetil (Cefuroxime) 250 Mg Tablet, 250 MG PO BID Prescribed by: GIL RM on 10/16/19 1458 Cetirizine Hcl (Cetirizine Hcl) 10 Mg Tablet, 10 MG PO DAILY PRN for ALLERGIES, (Reported) Entered as Reported by: VANDANA DUARTE on 02/17/12 1516 Clopidogrel Bisulfate (Plavix) 75 Mg Tablet, 75 MG PO DAILY, (Reported) Entered as Reported by: RICKEY POOL on 12/16/14 1140 Cyclobenzaprine HCl (Cyclobenzaprine HCl) 5 Mg Tablet, 5 MG PO TID PRN for SPASMS Prescribed by: KIMMY BARNHART on 02/27/17 0852 Diltiazem Hcl (Diltiazem 24HR Cd) 240 Mg Cap.er.24h, 240 MG PO HS, (Reported) Entered as Reported by: LUCY AREVALO on 05/02/14 1004 Doxazosin Mesylate (Doxazosin Mesylate) 2 Mg Tablet, 2 MG PO BID, (Reported) Entered as Reported by: LUCY AREVALO on 05/02/14 1004 Fenofibrate,Micronized (Fenofibrate) 67 Mg Capsule, 67 MG PO HS, (Reported) Entered as Reported by: LUCY AREVALO on 05/02/14 1004 Furosemide (Furosemide) 20 Mg Tablet, 20 MG PO EVERY OTHER DAY, (Reported) Entered as Reported by: LUCY AREVALO on 05/02/14 1004 Lactobacillus Acidophilus (Probiotic) 1 Each Capsule, 1 CAP PO DAILY, (Reported) Entered as Reported by: LUCY AREVALO on 05/02/14 1004 Losartan/Hydrochlorothiazide (Losartan-Hctz 100-25 Mg Tab) 1 Each Tablet, 1 TAB PO DAILY, (Reported) Entered as Reported by: ANGIE WOLFE on 11/19/13 0804 Multivits-Min/Folic Acid/Biot (Hair, Skin & Nails Caplet) 1 Each Tablet, 1 TAB PO DAILY, (Reported) Entered as Reported by: LUCY AREVALO on 05/02/14 1004 Nitroglycerin (Nitrostat) 0.4 Mg Tab.subl, 0.4 MG SL EVERY 5 MIN PRN for CHEST PAIN, (Reported) Entered as Reported by: RICKEY POOL on 12/16/14 1140 [place]eter-3 Fatty Acids/Fish Oil (Fish Oil 1,200 Mg Softgel) 1 Each Capsule, 1,200 MG PO DAILY, (Reported) Entered as Reported by: LUCY AREVALO on 01/31/131324 Pantoprazole Sodium (Pantoprazole Sodium) 40 Mg Tablet.dr, 40 MG PO DAILY, (Reported) Entered as Reported by: LUCY AREVALO on 05/02/14 100 Potassium Chloride (K-Dur) 10 Meq Tab.prt.sr, 10 MEQ PO EVERY OTHER DAY, (Reported) Entered as Reported by: LUCY AREVALO on 05/02/14 100 Pravastatin Sodium (Pravastatin Sodium) 10 Mg Tablet, 10 MG PO HS, (Reported) Entered as Reported by: LUCY AREVALO on 05/02/141003 Ubidecarenone (Coq-10) 100 Mg Capsule, 100 MG PO DAILY, (Reported) Entered as Reported by: LUCY AREVALO on 01/31/131324 Vitamin B Complex & Vit C No.4 (Super B Complex) 150 Mg Tablet, 150 MG PO DAILY, (Reported) Entered as Reported by: LUCY AREVALO on 01/31/13 132 [Turmeric 450MG] , 450 MG PO DAILY, (Reported) Entered as Reported by: LUCY AREVALO on 01/31/13 132 [Vitd+Cw/Zinc] , 1 TAB PO BID, (Reported) Entered as Reported by: LUCY AREVALO on 05/02/14 100 Review of Systems Review of Systems Constitutional: see HPI; No chills, No fever EENTM: Nose Congestion; No Throat Pain Respiratory: Cough; Denies SOA at Rest Cardiovascular: Denies Chest Pain, Denies Edema Gastrointestinal: See HPI Genitourinary: See HPI Musculoskeletal: No back pain; muscle weakness Skin: no symptoms reported Psychiatric/Neurological: No Symptoms Reported Past Nvgvxrr-Zabzze-Peqwcr Hx Patient Social History Tobacco Use?: No Substance use?: No Alcohol Use?: No Pt feels they are or have been: No 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s Up To Date Tetanus Booster (TDap): Unknown Seasonal Allergies Seasonal Allergies: Yes Past Medical History Surgery/Hospitalization HX: ABD SURG, R TOTAL HIP, R TOTAL KNEE, COPD, HTN, METABOLIC DELIRIUM. 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 Sexually Transmitted Disease: No HIV/AIDS: No Genitourinary: Yes UTI-Chronic Gastrointestinal: Yes Gastroesophageal Reflux, Gall Bladder Disease Musculoskeletal: Yes (SPIINAL STENOSIS) Arthritis Endocrine: No Cataract Loss of Vision: Denies Hearing Impairment: Denies Cancer: No Psychosocial: No Integumentary: No Recent Skin Changes Blood Disorders: No Family Medical History Reviewed Nursing Family Hx Cardiovascular disease 19 MOTHER Hypertension 19 FATHER Physical Exam Vital Signs Vital Signs - First Documented 11/22/22 11/22/22 07:35 08:07 Temp 35.7 Pulse 91 Resp 18 B/P (MAP) 185/105 (131) Pulse Ox 95 O2 Delivery Room Air Capillary Refill : Less Than 3 Seconds Height/Weight/BMI Height: 5'0" Weight: 171lbs. 8.0oz. 77.469128va; BMI Method:Stated General Appearance: WD/WN, moderate distress HEENT: PERRL/EOMI, pharynx normal Neck: full range of motion, supple Respiratory: lungs clear, normal breath sounds Cardiovascular: no murmur, tachycardia Gastrointestinal: distended, tenderness, other (Markedly distended abdomen and seems to be greatest in the lower abdomen.) Back: CVA tenderness (R), CVA tenderness (L) Neurologic/Psychiatric: alert, oriented x 3 Skin: normal color, warm/dry Focused Exam Lactate Level 11/22/22 08:16: Lactic Acid Level 1.67 Lactic Acid Level Laboratory Tests Test 11/22/22 08:16 Lactic Acid Level 1.67 MMOL/L (0.50-2.00) Procedures/Interventions Suture Size: 3-0 Progress/Results/Core Measures Results/Orders Lab Results Laboratory Tests Test 11/22/22 07:44 11/22/22 08:02 11/22/22 08:05 11/22/22 08:16 Range/Units Urine Color ORANGE H Urine Clarity TURBID H Urine pH 5.5 5-9 Urine Specific Dexter 1.020 1.016-1.022 Urine Protein 3+ H NEGATIVE Urine Glucose (UA) TRACE H NEGATIVE Urine Ketones TRACE H NEGATIVE Urine Nitrite POSITIVE H NEGATIVE Urine Bilirubin NEGATIVE NEGATIVE Urine Urobilinogen 1.0 < = 1.0 MG/DL Urine Leukocyte Esterase 3+ H NEGATIVE Urine RBC (Auto) 3+ H NEGATIVE Urine RBC 2-5 H /HPF Urine WBC TNTC H /HPF Urine Squamous Epithelial Cells NONE /HPF Urine Crystals NONE /LPF Urine Bacteria FEW H /HPF Urine Casts NONE /LPF Urine Mucus NEGATIVE /LPF Urine Culture Indicated CULTURE PENDING White Blood Count 9.0 4.3-11.0 10^3/uL Red Blood Count 4.45 3.80-5.11 10^6/uL Hemoglobin 13.3 11.5-16.0 g/dL Hematocrit 39 35-52 % Mean Corpuscular Volume 89 80-99 fL Mean Corpuscular Hemoglobin 30 25-34 pg Mean Corpuscular Hemoglobin Concent 34 32-36 g/dL Red Cell Distribution Width 13.6 10.0-14.5 % Platelet Count 392 130-400 10^3/uL Mean Platelet Volume 10.8 9.0-12.2 fL Immature Granulocyte % (Auto) 0 % Neutrophils (%) (Auto) 90 H 42-75 % Lymphocytes (%) (Auto) 5 L 12-44 % Monocytes (%) (Auto) 5 0-12 % Eosinophils (%) (Auto) 0 0-10 % Basophils (%) (Auto) 0 0-10 % Neutrophils # (Auto) 8.1 H 1.8-7.8 10^3/uL Lymphocytes # (Auto) 0.4 L 1.0-4.0 10^3/uL Monocytes # (Auto) 0.4 0.0-1.0 10^3/uL Eosinophils # (Auto) 0.0 0.0-0.3 10^3/uL Basophils # (Auto) 0.0 0.0-0.1 10^3/uL Immature Granulocyte # (Auto) 0.0 0.0-0.1 10^3/uL Neutrophils % (Manual) 88 % Lymphocytes % (Manual) 6 % Monocytes % (Manual) 6 % Eosinophils % (Manual) 0 % Basophils % (Manual) 0 % Band Neutrophils 0 % Blood Morphology Comment NORMAL Influenza Type A (RT-PCR) Not Detected Not Detecte Influenza Type B (RT-PCR) Not Detected Not Detecte SARS-CoV-2 RNA (RT-PCR) Detected H Not Detecte Lactic Acid Level 1.67 0.50-2.00 MMOL/L Test 11/22/22 08:56 Range/Units Prothrombin Time 12.8 12.2-14.7 SEC INR Comment 0.9 0.8-1.4 Activated Partial Thromboplast Time 30 24-35 SEC Sodium Level 136 135-145 MMOL/L Potassium Level 3.8 3.6-5.0 MMOL/L Chloride Level 100 98-107 MMOL/L Carbon Dioxide Level 25 21-32 MMOL/L Anion Gap 11 5-14 MMOL/L Blood Urea Nitrogen 31 H 7-18 MG/DL Creatinine 1.04 0.60-1.30 MG/DL Estimat Glomerular Filtration Rate 52 BUN/Creatinine Ratio 30 Glucose Level 136 H 70-105 MG/DL Calcium Level 9.4 8.5-10.1 MG/DL Corrected Calcium 9.8 8.5-10.1 MG/DL Total Bilirubin 0.3 0.1-1.0 MG/DL Aspartate Amino Transf (AST/SGOT) 42 H 5-34 U/L Alanine Aminotransferase (ALT/SGPT) 15 0-55 U/L Alkaline Phosphatase 27 L 40-136 U/L Total Protein 7.2 6.4-8.2 GM/DL Albumin 3.5 3.2-4.5 GM/DL My Orders Orders - EMILY MCCLELLAND MD Cbc With Automated Diff (11/22/22 07:44) Comprehensive Metabolic Panel (11/22/22 07:44) Blood Culture (11/22/22 07:44) Sputum Culture (11/22/22 07:44) Urinalysis (11/22/22 07:44) Urine Culture (11/22/22 07:44) Protime With Inr (11/22/22 07:44) Partial Thromboplastin Time (11/22/22 07:44) Chest 1 View, Ap/Pa Only (11/22/22 07:44) Ed Iv/Invasive Line Start (11/22/22 07:44) Vital Signs Adult Sepsis Patie Q15M (11/22/22 07:44) O2 (11/22/22 07:44) Remove Rings In Anticipation O (11/22/22 07:44) Lactic Acid Analyzer (11/22/22 07:44) Catheter(Urinary) Insert & Ass 03,15 (11/22/22 07:44) Ns Iv 500 Ml (Sodium Chloride 0.9%) (11/22/22 07:45) Covid 19 Inhouse Test (11/22/22 08:04) Influenza A And B By Pcr (11/22/22 08:04) Manual Differential (11/22/22 08:02) Ct Chest/Abdomen/Pelvis Wo (11/22/22 09:21) Meropenem Injection (Meropenem Injection (11/22/22 11:00) Vital Signs/I&O 11/22/22 11/22/22 07:35 08:07 Temp 35.7 Pulse 91 Resp 18 B/P (MAP) 185/105 (131) Pulse Ox 95 O2 Delivery Room Air Blood Pressure Mean: 131 Progress Progress Note : Progress Note And evaluated. Sepsis protocol initiated including IV, labs including CBC, CMP, UA, urine culture, blood culture, lactic acid and chest x-ray. Fatima catheter placed by nursing with initial output of cloudy yellow urine of 1 L and this was clamped before being restarted. Patient had immediate pain relief afterwards. Monitor patient. We will check COVID given patient's family member with COVID. Differential diagnosis includes UTI, COVID, sepsis, electrolyte abnormality, dehydration, constipation 1057: Patient has received normal saline 500 mL bolus from IV fluid initiated by EMS. UA is grossly positive and nitrite positive for UTI despite being on antibiotics. CBC is grossly normal with CMP with normal electrolytes and normal creatinine with normal lactic acid. Chest x-ray reviewed by me showed no obvious infiltrate on my interpretation. Radiology report recommended CT due to questionable finding in the lower left lung. CT abdomen and pelvis without contrast ordered as well as chest due to concerns of constipation and bowel obstruction. No obvious infiltrate on CT chest but does have significant obstipation on abdomen and pelvis on my interpretation and radiology report agrees. There is question of perinephric stranding on radiology report and this is likely due to UTI resistant to current therapy. I did discuss the case with Dr. Willis and she accepts patient for admission, inpatient status to the medical surgical unit. Patient is COVID-positive. All of this was discussed with Dr. Willis who accepts patient. I did discuss CODE STATUS with family who reports that the patient is DNR and then produces paperwork. This was ordered. Dr. Willis will write orders. Diagnostic Imaging Diagonstic Imaging: Xray Plain Films/CT/US/NM/MRI: chest Comments [facility] [place], [place] NAME: LUIS LI [facility] REC#: [id number] PT STATUS: REG ER : 1935 PHYSICIAN: EMILY MCCLELLAND MD ADMIT DATE: 11/22/22/ER Draft Date of Exam:11/22/22 CHEST 1 VIEW, AP/PA ONLY INDICATION: Abdominal pain COMPARISON: 03/07/2019 TECHNIQUE: Single radiograph of the chest dated 11/22/2022. FINDINGS: Examination slightly limited secondary to significant patient rotation. The cardiac silhouette is enlarged. No significant pulmonary vascular congestion. A 7.3 cm rounded density is noted overlying the left lung base. The lungs otherwise appear clear of focal pulmonary opacity. No significant pleural effusion. No pneumothorax. Scattered osseous degenerative changes without acute osseous abnormality. IMPRESSION: Rounded density overlying the left lung base. This is nonspecific. Although this could simply relate to superposition of overlying tissues, including the breasts, hiatal hernia or other pulmonary mass would be additional considerations. Recommend either repeat frontal and lateral radiographs of the chest for further evaluation or potentially CT of the chest. Cardiomegaly without pulmonary vascular congestion. Dictated on workstation # [id number] Dict: 11/22/2245 Trans: 11/22/[address] [place] [address] [id number] Interpreted by: JONATHAN SEVILLA MD Electronically signed by: Diagonsharpreet Imaging: CT Plain Films/CT/US/NM/MRI: chest, abdomen, pelvis Comments [facility]. [place] [place] NAME: LUIS LI [facility] REC#: [id number] PT STATUS: REG ER : 1935 PHYSICIAN: EMILY MCCLELLAND MD ADMIT DATE: 11/22/22/ER Draft Date of Exam:11/22/22 CT CHEST/ABDOMEN/PELVIS WO PROCEDURE: CT chest, abdomen, and pelvis without contrast. TECHNIQUE: Multiple contiguous axial images were obtained through the chest, abdomen, and pelvis without the use of intravenous contrast. Auto Exposure Controls were utilized during the CT exam to meet ALARA standards for radiation dose reduction. INDICATION: COVID patient with thoracoabdominal pain. Also UTI. Its compared with a chest CT of 06/26/2017. No prior abdominal pelvic imaging. CHEST: There is no significant groundglass opacities in the lungs. There is some slight scattered zones of subsegmental atelectasis. There is nonaneurysmal aortic atherosclerotic vascular calcifications and extensive coronary artery atherosclerotic calcifications. There is cardiomegaly and mild venous congestion but no alistair edema. No pleural fluid. No pneumothorax. No suspicious lung mass or adenopathy. No acute chest wall abnormality. There is degenerative disease and likely bony demineralization but no compression deformity or other fracture pattern found. Abdomen pelvis: Urinary bladder is empty catheterized by Fatima limiting its evaluation. There is a mild to moderate right and mild left bilateral hydroureteronephrosis. There is stranding of the right greater than left perinephric fat. There are bilateral renal cortical and parapelvic cysts. There is a left-sided renal hilar calcifications believed to be vascular. No definite urolithiasis. No radiopaque ureteral stone. The liver, spleen, adrenals and pancreas nonacute in appearance. There is aortoiliac atherosclerotic vascular calcifications with no abdominal pelvic aneurysm. There is rectal impaction stool containing rectal vault distended to measure 10 cm transverse but no findings of proctitis or perirectal edema. There is more mild colonic constipation throughout the remaining large bowel, small bowel nondilated. No pneumatosis. No free gas. There is severe hypertrophic degenerative changes throughout the lumbar spine with substantial degrees of mild reyes lumbar spinal canal, foraminal and lateral recess stenoses on a chronic degenerative basis. No fracture or visible insufficiency type injury. IMPRESSION: CHEST: Mild atelectasis, cardiomegaly and atherosclerosis. No acute infiltrate or thoracic effusion. Abdomen pelvis: Rectal impaction, colonic constipation without overt obstruction or findings of proctitis. Bilateral hydroureteronephrosis without visible radiodense urinary tract stone. There is some perinephric stranding correlate for infection. Bladder is decompressed by Fatima and cannot be evaluated at CT. Bony demineralization and chronic degenerative changes with advanced multilevel lumbar spondylosis, facet arthrosis and stenoses chronic. Dictated on workstation # [id number] Dict: 11/22/22 1015 Trans: 11/22/22 1046 [facility] [id number] Interpreted by: JOSUE NASSAR Electronically signed by: Departure Communication (Admissions) Time/Spoke to Admitting Phy: 10:57 Impression Primary Impression: UTI (urinary tract infection) Qualified Codes: N30.00 - Acute cystitis without hematuria Additional Impression: Obstipation Disposition: ADMITTED INPATIENT Condition: Stable Admissions Decision to Admit Reason: Admit from ER (General) Decision to Admit/Date: Nov 22, 2022 Time/Decision to Admit Time: 10:57 Departure-Patient Inst. Referrals: EUGENIA DYER DO (PCP/Family) Primary Care Physician EMILY MCCLELLAND MD Nov 22, 2022 08:09
[2022-11-22 08:31] LABS: BASOPHILS % (AUTO) 0 % (0-10); EOSINOPHILS % (AUTO) 0 % (0-10); HEMATOCRIT 39 % (35-52); HEMOGLOBIN 13.3 g/dL (11.5-16.0); LYMPHOCYTES # (AUTO) 0.4 10^3/uL (1.0-4.0); LYMPHOCYTES % (AUTO) 5 % (12-44); MEAN CORPUSCULAR HEMOGLOBIN 30 pg (25-34); MEAN CORPUSCULAR HGB CONC 34 g/dL (32-36); MEAN CORPUSCULAR VOLUME 89 fL (80-99); MEAN PLATELET VOLUME 10.8 fL (9.0-12.2); MONOCYTES # (AUTO) 0.4 10^3/uL (0.0-1.0); MONOCYTES % (AUTO) 5 % (0-12); NEUTROPHILS # (AUTO) 8.1 10^3/uL (1.8-7.8); NEUTROPHILS % (AUTO) 90 % (42-75); PLATELET COUNT 392 10^3/uL (130-400)
[2022-11-22 08:51] LABS: CLARITY,URINE TURBID; COLOR,URINE ORANGE; GLUCOSE, URINE (UA) TRACE (NEGATIVE); KETONES,URINE TRACE (NEGATIVE); PH,URINE 5.5 (5-9); PROTEIN,URINE 3+ (NEGATIVE)
--- NOTE | 2022-11-22 08:51 | Diagnostic Imaging Report ---
INDICATION: Abdominal pain COMPARISON: 03/07/2019 TECHNIQUE: Single radiograph of the chest dated 11/22/2022. FINDINGS: Examination slightly limited secondary to significant patient rotation. The cardiac silhouette is enlarged. No significant pulmonary vascular congestion. A 7.3 cm rounded density is noted overlying the left lung base. The lungs otherwise appear clear of focal pulmonary opacity. No significant pleural effusion. No pneumothorax. Scattered osseous degenerative changes without acute osseous abnormality. IMPRESSION: Rounded density overlying the left lung base. This is nonspecific. Although this could simply relate to superposition of overlying tissues, including the breasts, hiatal hernia or other pulmonary mass would be additional considerations. Recommend either repeat frontal and lateral radiographs of the chest for further evaluation or potentially CT of the chest. Cardiomegaly without pulmonary vascular congestion. Dictated by: Dictated on workstation # [id number]
[2022-11-22 08:52] LABS: BACTERIA,URINE FEW /HPF; BILIRUBIN,URINE NEGATIVE (NEGATIVE); LEUKOCYTE ESTERASE ,URINE 3+ (NEGATIVE); NITRITE,URINE POSITIVE (NEGATIVE); WBC,URINE TNTC /HPF
[2022-11-22 09:10] LABS: BAND NEUTROPHILS 0 %; BASOPHILS % (MANUAL) 0 %; EOSINOPHILS % (MANUAL) 0 %; LYMPHOCYTES % (MANUAL) 6 %; MONOCYTES % (MANUAL) 6 %; NEUTROPHILS % (MANUAL) 88 %; RBC MORPH NORMAL
[2022-11-22 09:18] LABS: ALBUMIN 3.5 GM/DL (3.2-4.5)
[2022-11-22 09:19] LABS: POTASSIUM 3.8 MMOL/L (3.6-5.0)
[2022-11-22 09:20] LABS: CALCIUM 9.4 MG/DL (8.5-10.1)
[2022-11-22 09:21] LABS: TOTAL PROTEIN 7.2 GM/DL (6.4-8.2)
[2022-11-22 09:23] LABS: BILIRUBIN,TOTAL 0.3 MG/DL (0.1-1.0)
[2022-11-22 09:25] LABS: CREATININE SERUM 1.04 MG/DL (0.60-1.30)
[2022-11-22 09:35] LABS: INR 0.9 (0.8-1.4); PROTHROMBIN TIME PATIENT 12.8 SEC (12.2-14.7)
--- NOTE | 2022-11-22 10:46 | Diagnostic Imaging Report ---
PROCEDURE: CT chest, abdomen, and pelvis without contrast. TECHNIQUE: Multiple contiguous axial images were obtained through the chest, abdomen, and pelvis without the use of intravenous contrast. Auto Exposure Controls were utilized during the CT exam to meet ALARA standards for radiation dose reduction. INDICATION: COVID patient with thoracoabdominal pain. Also UTI. Its compared with a chest CT of 06/26/2017. No prior abdominal pelvic imaging. CHEST: There is no significant groundglass opacities in the lungs. There is some slight scattered zones of subsegmental atelectasis. There is nonaneurysmal aortic atherosclerotic vascular calcifications and extensive coronary artery atherosclerotic calcifications. There is cardiomegaly and mild venous congestion but no alistair edema. No pleural fluid. No pneumothorax. No suspicious lung mass or adenopathy. No acute chest wall abnormality. There is degenerative disease and likely bony demineralization but no compression deformity or other fracture pattern found. Abdomen pelvis: Urinary bladder is empty catheterized by Fatima limiting its evaluation. There is a mild to moderate right and mild left bilateral hydroureteronephrosis. There is stranding of the right greater than left perinephric fat. There are bilateral renal cortical and parapelvic cysts. There is a left-sided renal hilar calcifications believed to be vascular. No definite urolithiasis. No radiopaque ureteral stone. The liver, spleen, adrenals and pancreas nonacute in appearance. There is aortoiliac atherosclerotic vascular calcifications with no abdominal pelvic aneurysm. There is rectal impaction stool containing rectal vault distended to measure 10 cm transverse but no findings of proctitis or perirectal edema. There is more mild colonic constipation throughout the remaining large bowel, small bowel nondilated. No pneumatosis. No free gas. There is severe hypertrophic degenerative changes throughout the lumbar spine with substantial degrees of mild reyes lumbar spinal canal, foraminal and lateral recess stenoses on a chronic degenerative basis. No fracture or visible insufficiency type injury. IMPRESSION: CHEST: Mild atelectasis, cardiomegaly and atherosclerosis. No acute infiltrate or thoracic effusion. Abdomen pelvis: Rectal impaction, colonic constipation without overt obstruction or findings of proctitis. Bilateral hydroureteronephrosis without visible radiodense urinary tract stone. There is some perinephric stranding correlate for infection. Bladder is decompressed by Fatima and cannot be evaluated at CT. Bony demineralization and chronic degenerative changes with advanced multilevel lumbar spondylosis, facet arthrosis and stenoses chronic. Dictated by: Dictated on workstation # [id number]
[2022-11-22] MEDS ORDERED: MEROPENEM INJECTION 1,000 MG in NS (IVPB) 100 ML 100 ML IV ONE (11:00)
[2022-11-22] MEDS ORDERED: CALCIUM CARBONATE 500 MG CHEW TABLET PO PRN (12:15)
[2022-11-22] MEDS ORDERED: ONDANSETRON INJECTION 4 MG/2 ML (SDV) IV PRN (12:15)
[2022-11-22] MEDS ORDERED: NIRMATRELVIR/RITONAVIR (PAXLOVID) TABLET PO SCH ×2 (12:15→13:00)
[2022-11-22] MEDS ORDERED: ANTACID SUSPENSION 30 ML UDC PO PRN (12:15)
[2022-11-22] MEDS ORDERED: MELATONIN 3 MG TABLET PO PRN (12:15)
[2022-11-22 12:25] VITALS: BP 142/76
[2022-11-22] MEDS: NIRMATRELVIR/RITONAVIR (PAXLOVID) TABLET PO SCH ×2 (13:13→21:44)
[2022-11-22] MEDS: ENOXAPARIN 40 MG/0.4 ML SYRINGE SC SCH (13:13)
[2022-11-22 13:48] VITALS: BP 142/76
[2022-11-22] MEDS ORDERED: [UNRECOGNIZED DRUG - OTHER] PR NR (14:00)
[2022-11-22] MEDS ORDERED: RT-ALBUTEROL SULF 2.5 MG/3 ML PRE-MIX VIAL INH PRN (14:00)
[2022-11-22] MEDS ORDERED: FENO134C21 PO (14:04)
[2022-11-22] MEDS ORDERED: POTA10CA84 PO (14:04)
[2022-11-22] MEDS ORDERED: ASPI-1238 PO (14:04)
[2022-11-22] MEDS ORDERED: CLOP75TA28 PO (14:04)
[2022-11-22] MEDS ORDERED: LACT1CAP62 PO (14:04)
[2022-11-22] MEDS ORDERED: CALC625T14 PO (14:04)
[2022-11-22] MEDS ORDERED: MULT-1136 PO (14:04)
[2022-11-22] MEDS ORDERED: HYDR-3924 PO (14:04)
[2022-11-22] MEDS ORDERED: MAGN400T39 PO (14:04)
[2022-11-22] MEDS ORDERED: CEFD300C3 PO (14:04)
[2022-11-22] MEDS ORDERED: PANT40TA52 PO (14:04)
[2022-11-22] MEDS ORDERED: LOSA100T58 PO (14:04)
[2022-11-22] MEDS ORDERED: FURO20TA4 PO ×2 (14:04)
[2022-11-22] MEDS ORDERED: DOCU100C37 PO (14:04)
[2022-11-22] MEDS ORDERED: FUROSEMIDE 20 MG TABLET PO SCH (14:30)
--- NOTE | 2022-11-22 14:40 | History & Physical-Hospitalist ---
History of Present Illness HPI/Chief Complaint Pt is an 87yoCF who presented to the ER due to abd pain. She has been sick for about a week. She was seen last week at [place] and diagnosed with a UTI. She was started on cefidnir. Her family was diagnosed with COVID last week and they attempted to separate but she started to get ill. In the ER CT abd/pelvis was done which revealed constipation. Review of records revealed she has previously grown ESBL E. coli in her urine. She was admitted for further management of both her UTI and her COVID. She denies any abdominal pain to me at this time. Source: patient Date Seen 11/22/22 Time Seen by a Provider: 14:31 Attending Physician Keaton Massey DO PCP Admitting Physician: Kady Willis MD Attending Physician: Kady Willis MD Referring Physician Date of Admission Nov 22, 2022 at 11:40 Home Medications & Allergies Home Medications Reviewed patient Home Medication Reconciliation performed by pharmacy medication reconciliations emergency spill response technician and/or nursing. Patients Allergies have been reviewed. Allergies Allergies Coded Allergies morphine (Verified Allergy, Intermediate, Vomiting, 11/22/22) also hallucinations rivaroxaban (Verified Allergy, Intermediate, 11/22/22) increased bleeding tadalafil (Verified Allergy, Mild, 11/22/22) medication does not work clonidine (Verified Allergy, Unknown, 11/22/22) Past Vopvmnx-Wzhpik-Gmmcuj Hx Patient Social History Tobacco Use?: No Smoking Status: Never a Smoker Smokeless Tobacco Frequency: Never a User Use of E-Cig and/or Vaping dev: No Substance use?: No Alcohol Use?: No Pt feels they are or have been: No 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s Up To Date Date of Influenza Vaccine: Jan 30, 2012 Tetanus Booster (TDap): Unknown Hepatitis A: No Hepatitis B: No Seasonal Allergies Seasonal Allergies: Yes Current Status status: No status: No Advance Directives: Yes Advance Directive Location: Copy from prev record Communicates: Verbally Primary Language: Thai Preferred Spoken Language: Thai Is interpretation needed?: Yes Implanted or Applied Medical D: Stents Past Medical History Surgeries: Coronary Stent, Gallbladder, Hysterectomy, Orthopedic Sleep Apnea Coronary Artery Disease, High Cholesterol, Hypertension 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 Sexually Transmitted Disease: No HIV/AIDS: No UTI-Chronic Gastroesophageal Reflux, Gall Bladder Disease Arthritis Cataract Loss of Vision: Denies Hearing Impairment: Denies Recent Skin Changes Blood Disorders: No Family Medical History Reviewed Nursing Family Hx Cardiovascular disease 19 MOTHER Hypertension 19 FATHER Review of Systems Constitutional: see HPI Physical Exam Physical Exam Vital Signs Vital Signs - First Documented 11/22/22 11/22/22 11/23/22 07:35 08:07 00:30 Temp 35.7 Pulse 91 Resp 18 B/P (MAP) 185/105 (131) Pulse Ox 95 O2 Delivery Room Air O2 Flow Rate 2.00 Capillary Refill : Less Than 3 Seconds Height, Weight, BMI Height: 5'0" Weight: 171lbs. 8.0oz. 77.183150sm; 31.77 BMI Method:Stated General Appearance: No Apparent Distress Respiratory: Lungs Clear, No Respiratory Distress Cardiovascular: Regular Rate, Rhythm, No Murmur Gastrointestinal: Normal Bowel Sounds, Soft Neurologic/Psychiatric: Alert, Oriented x3 (to major details) Results Results/Procedures Labs Laboratory Tests 11/22/22 08:02 11/22/22 08:56 11/23/22 05:50 Patient resulted labs reviewed. Imaging: Reviewed Imaging Report Imaging [facility], [place] NAME: [facility]IS [facility] REC#: [id number] PT STATUS: ADM IN : 1935 PHYSICIAN: EMILY MCCLELLAND MD ADMIT DATE: 11/22/22 Signed Date of Exam:11/22/22 CHEST 1 VIEW, AP/PA ONLY INDICATION: Abdominal pain COMPARISON: 03/07/2019 TECHNIQUE: Single radiograph of the chest dated 11/22/2022. FINDINGS: Examination slightly limited secondary to significant patient rotation. The cardiac silhouette is enlarged. No significant pulmonary vascular congestion. A 7.3 cm rounded density is noted overlying the left lung base. The lungs otherwise appear clear of focal pulmonary opacity. No significant pleural effusion. No pneumothorax. Scattered osseous degenerative changes without acute osseous abnormality. IMPRESSION: Rounded density overlying the left lung base. This is nonspecific. Although this could simply relate to superposition of overlying tissues, including the breasts, hiatal hernia or other pulmonary mass would be additional considerations. Recommend either repeat frontal and lateral radiographs of the chest for further evaluation or potentially CT of the chest. Cardiomegaly without pulmonary vascular congestion. Dictated by: Dictated on workstation # [id number] Dict: 11/22/22 0845 Trans: 11/22/22 1141 LUCY [id number] Interpreted by: JONATHAN SEVILLA MD Electronically signed by: JONATHAN SEVILLA MD 11/22/22 1141 Assessment/Plan Admission Diagnosis Pyelonephritis Admission Status: Inpatient Order (span 2 midnights) Reason for Inpatient Admission: failed outpatient abx Assessment and Plan Pyelonephritis Was on cefdinir but worsening Add Merrem for history of esbl e coli Not septic Await blood cultures COVID Not hypoxic and no admitted for that Start paxlovid MAT protocol PT Constipation Enema ordered HTN HLD GERD CAD Continue home meds DVT ppx: Lovenox Diagnosis/Problems Diagnosis/Problems (1) COVID-19 (2) UTI (urinary tract infection) Status: Acute Qualifiers: Urinary tract infection type: acute cystitis Hematuria presence: without hematuria Qualified Codes: N30.00 - Acute cystitis without hematuria (3) Obstipation Status: Acute (4) Hypertension Status: Acute KADY WILLIS MD Nov 22, 2022 14:40
--- NOTE | 2022-11-22 15:23 | Physical Therapy Evaluation ---
PT Evaluation-General Medical Diagnosis Admission Date Nov 22, 2022 at 11:40 Medical Diagnosis: Abdominal pain, distension, COVID Onset Date: Nov 21, 2022 Therapy Diagnosis Therapy Diagnosis: Gait deficit, strength deficit Height/Weight Height (Feet): 5 Height (Inches): 0 Weight (Pounds): 171 Weight (Ounces): 8.0 Precautions Precautions/Isolations: Droplet Isolation, Fall Prevention Weight Bear Status Right Lower Extremity: Right Full Weight Bearing Left Lower Extremity: Left Full Weight Bearing Referral Physician: Dr. Willis Reason for Referral: Evaluation/Treatment Medical History Reviewed History: Yes Social History Home: Single Level Current Living Status: Other Family Entry Into Home: Ramp Prior Prior Level of Function SCALE: Activities may be completed with or without assistive devices. 1-Rdfessclwp-pihcxnj completes the activity by him/herself with no assistance fr om a helper. 5-Set-up or Clean-up Assistance-helper sets up or cleans up; patient completes activity. [place] assists only prior to or following the activity. 4-Supervision or Touching Assistance-helper provides verbal cues and/or touching/steadying and/or contact guard assistance as patient completes activity. Assistance may be provided throughout the activity or intermittently. 3-Partial/Moderate Assistance-helper does LESS THAN HALF the effort. [place] lifts, holds or supports trunk or limbs, but provides less than half the effort. 2-Substantial/Maximal Assistance-helper does MORE THAN HALF the effort. [place] lifts or holds trunk or limbs and provides more than half the effort. 9-Erabafcjd-ziradp does ALL the effort. Patient does none of the effort to complete the activity. Or, the assistance of 2 or more helpers is required for the patient to complete the activity. If activity was not attempted, code reason: 7-Patient Refused. 9-Not Applicable-not attempted and the patient did not perform the activity before the current illness, exacerbation or injury. 10-Not Attempted due to Environmental Limitations-(lack of equipment, weather restraints, etc.). 88-Not Attempted due to Medical Conditions or Safety Concerns. Bed Mobility: 6 Transfers (B,C,W/C): 6 Gait: 6 Indoor Mobility (Ambulation): Independent Prior Devices Use: Walker PT Evaluation-Current Subjective Patient lying supine in bed upon PT arrival, agreeable to treatment, daughter in the room. Patient rates pain at 0/10 currently. Daughter reports she is in the house at all times, except for work at which time her sister comes to help and there 2 other caregivers that can assist with her mother at that time. Objective Patient Orientation: Person Attachments: Fatima Catheter, IV ROM/Strength ROM Lower Extremities WFLs BLEs all planes Strength Lower Extremities 3/5 BLEs all planes Sensory Vision: Functional Hearing: Functional Sensation Right Lower Extremit: Intact Sensation Left Lower Extremity: Intact Transfers Roll Left to Right (QC): 2 Sit to Lying (QC): 2 Lying to Sitting/Side of Bed(Q: 2 Sit to Stand (QC): 2 Gait Does the Patient Walk?: No and Walking Goal IS indicated Mode of Locomotion: Both Anticipated Mode of Locomotion: Both Gait Assistive Device: FWW Balance Sitting Static: Fair Sitting Dynamic: Poor Standing Static: Poor Standing Dynamic: Poor Assessment/Needs Patient tolerated treatment fair. She is moderately confused but follows commands to the best of her current ability. Patient requires max A for all bed mobility and transfers. Patient attempts sit to stand x 3 with max a, with FWW. Patient unable to achieve full standing posture with FWW. Patient requires Max A from this PT to sidestep higher in the bed. Patient in bed post treatment with daughter in the room and all needs met, nursing notified, call light in reach. Rehab Potential: Poor PT Certified Welding Inspector Goals Certified Welding Inspector Goals PT Sn[facility] Goals Time Frame: Dec 31, 2022 Roll Left & Right (QC): 5 Sit to Lying (QC): 5 Lying-Sitting on Side/Bed(QC): 5 Sit to Stand (QC): 4 Chair/Lyn-yy-Fikdx Xfer(QC): 4 Toilet Transfer (QC): 4 Does the Patient Walk: Yes Walk 10 feet (QC): 3 Walk 50ft with 2 Turns (QC): 3 PT Plan Problem List Problem List: Activity Tolerance, Functional Strength, Safety, Balance, Gait, Transfer, Bed Mobility, ROM Treatment/Plan Treatment Plan: Continue Plan of Care Treatment Plan: Bed Mobility, Education, Functional Activity [place], Functional Strength, Group Therapy, Gait, Safety, Therapeutic Exercise, Transfers Treatment Duration: Dec 31, 2022 Frequency: 5 times per week Estimated Hrs Per Day: .25 hour per day Patient and/or Family Agrees t: Yes Safety Risks/Education Patient Education: Transfer Techniques Teaching Recipient: Patient, Family Teaching Methods: Demonstration, Discussion Response to Teaching: Verbalize Understanding, Return Demonstration Time Time In: 1405 Time Out: 1440 DATE: Nov 22, 2022 Total Billed Treatment Time: 35 Total Billed Treatment Visit, LASHAY CASTRO JOHN A PT Nov 22, 2022 15:23
[2022-11-22 16:00] VITALS: BP 134/66
[2022-11-22 17:12] VITALS: BP 134/66
[2022-11-22] MEDS ORDERED: SENNA W/DOCUSATE TABLET PO PRN (20:00)
[2022-11-22] MEDS: MEROPENEM INJECTION 500 MG in NS (IVPB) 100 ML 100 ML IV SCH (20:14)
[2022-11-22] MEDS: hydrALAZINE 25 MG TABLET PO SCH (20:22)
[2022-11-22] MEDS: LACTOBACILLUS ACIDOPHILUS (PROBIOTIC) CAPSULE PO SCH (20:22)
[2022-11-22] MEDS: FENOFIBRATE, Micronized 134 MG CAPSULE PO SCH (20:22)
[2022-11-22] MEDS: THERAPEUTIC MULTIVITAMIN W/MINERALS TABLET PO SCH (20:22)
[2022-11-22] MEDS: LOSARTAN 100 MG TABLET PO SCH (20:22)
[2022-11-22] MEDS: ASPIRIN enteric coated 81MG TABLET PO SCH (20:22)
[2022-11-22] MEDS: MAGNESIUM OXIDE 400 MG TABLET PO SCH (20:22)
[2022-11-22 20:25] VITALS: BP 146/68
[2022-11-23 00:30] VITALS: BP 155/74
[2022-11-23] MEDS: MEROPENEM INJECTION 500 MG in NS (IVPB) 100 ML 100 ML IV SCH ×3 (04:51→20:17)
[2022-11-23 04:52] VITALS: BP 155/68
[2022-11-23 06:03] LABS: HEMATOCRIT 33 % (35-52); HEMOGLOBIN 11.2 g/dL (11.5-16.0); MEAN CORPUSCULAR HEMOGLOBIN 30 pg (25-34); MEAN CORPUSCULAR HGB CONC 34 g/dL (32-36); MEAN CORPUSCULAR VOLUME 89 fL (80-99); PLATELET COUNT 294 10^3/uL (130-400); WHITE BLOOD COUNT 7.4 10^3/uL (4.3-11.0)
[2022-11-23 06:16] LABS: POTASSIUM 3.5 MMOL/L (3.6-5.0)
[2022-11-23 06:17] LABS: CALCIUM 9.1 MG/DL (8.5-10.1)
[2022-11-23 06:22] LABS: CREATININE SERUM 0.77 MG/DL (0.60-1.30)
[2022-11-23] MEDS: PANTOPRAZOLE 40 MG TABLET PO SCH (07:45)
[2022-11-23] MEDS: POTASSIUM CHLORIDE 10 MEQ TABLET PO SCH (07:46)
[2022-11-23] MEDS: CLOPIDOGREL 75 MG TABLET PO SCH (07:46)
[2022-11-23] MEDS: CALCIUM POLYCARBOPHIL 625 MG TABLET PO SCH (07:46)
[2022-11-23] MEDS: hydrALAZINE 25 MG TABLET PO SCH ×3 (07:46→20:19)
[2022-11-23] MEDS: NIRMATRELVIR/RITONAVIR (PAXLOVID) TABLET PO SCH ×2 (07:47→20:18)
[2022-11-23] MEDS: FUROSEMIDE 20 MG TABLET PO SCH (07:48)
[2022-11-23 08:10] VITALS: BP 164/74
--- NOTE | 2022-11-23 09:43 | Progress Note - Hospitalist ---
Subjective HPI/CC On Admission Date Seen by Provider: Nov 23, 2022 Pt is an 87yoCF who presented to the ER due to abd pain. She has been sick for about a week. She was seen last week at [place] and diagnosed with a UTI. She was started on cefidnir. Her family was diagnosed with COVID last week and they attempted to separate but she started to get ill. In the ER CT abd/pelvis was done Subjective/Events-last exam Pt reports doing ok. She is currently on 2lpm of oxygen which is was she wears at night. Daughter about to take her off of it. No complaints. Discussed plan to await culture results and see what IV abx she will need and that she may need to stay in the hospital to complete course. Focused Exam Lactate Level 11/22/22 08:16: Lactic Acid Level 1.67 Objective Exam Vital Signs Vital Signs Date Time Temp Pulse Resp B/P (MAP) Pulse Ox O2 Delivery O2 Flow Rate FiO2 11/23/22 08:10 71 17 164/74 (104) Room Air 11/23/22 04:52 36.9 94 2.00 Capillary Refill : Less Than 3 Seconds General Appearance: No Apparent Distress, Chronically ill Respiratory: Lungs Clear, No Respiratory Distress Cardiovascular: Regular Rate, Rhythm, No Murmur Neurologic/Psychiatric: Alert, Oriented x3 (to major details) Results/Procedures Lab Laboratory Tests 11/23/22 05:50 Patient resulted labs reviewed. Assessment/Plan Assessment and Plan Assess & Plan/Chief Complaint Pyelonephritis Was on cefdinir but worsening Continue merrem Blood cultures pending still, urine with GNR Await c/s results- may need wing bed for IV abx COVID Only on her baseline nocturnal oxygen- no indication for decadron Continue paxlovid MAT protocol PT/OT Constipation Enema given yesterday Continue bowel regimen- repeat enema Spoke with surgery yesterday regarding patient and that she may need EUA if does not tolerate or respond to bedside tx HTN HLD GERD CAD Continue home meds DVT ppx: Lovenox Diagnosis/Problems Diagnosis/Problems (1) COVID-19 (2) UTI (urinary tract infection) Status: Acute Qualifiers: Urinary tract infection type: acute cystitis Hematuria presence: without hematuria Qualified Codes: N30.00 - Acute cystitis without hematuria (3) Obstipation Status: Acute (4) Hypertension Status: Acute KADY KELLY MD Nov 23, 2022 09:43
[2022-11-23] MEDS ORDERED: [UNRECOGNIZED DRUG - OTHER] PR NR (10:00)
[2022-11-23] MEDS: ENOXAPARIN 40 MG/0.4 ML SYRINGE SC SCH (11:30)
[2022-11-23] MEDS: ACETAMINOPHEN 325 MG TABLET PO PRN ×2 (11:32→16:57)
[2022-11-23 13:00] VITALS: BP 118/76
--- NOTE | 2022-11-23 15:13 | Occupational Therapy Eval ---
OT Evaluation-General/PLF Medical Diagnosis Admission Date Nov 22, 2022 at 11:40 Medical Diagnosis: Abdominal pain, distension, COVID Onset Date: Nov 21, 2022 Therapy Diagnosis Therapy Diagnosis: weakness, debility, confusion Height/Weight Height (Feet): 5 Height (Inches): 0 Weight (Pounds): 171 Weight (Ounces): 8.0 Precautions Precautions/Isolations: Contact Isolation, Droplet Isolation, Fall Prevention Safety Interventions: Bed Exit Alarm (chair alarm set) Weight Bear Status Weight Bearing Restriction: Full Weight Bearing Location Restriction: LE Bilateral Referral Physician: Dr. Willis Referral Reason: Activity Tolerance, Self Care, Evaluation/Treatment, Strengthening/ROM Medical History Additional Medical History PER CHART: 87yoCF who presented to the ER due to abd pain. She has been sick for about a week. She was seen last week at [place] and diagnosed with a UTI. She was started on cefidnir. Her family was diagnosed with COVID last week and they attempted to separate but she started to get ill. In the ER CT abd/pelvis was done which revealed constipation. Review of records revealed she has previously grown ESBL E. coli in her urine. She was admitted for further management of both her UTI and her COVID. She denies any abdominal pain to me at this time. Reviewed History: Yes Social History Home: Single Level Current Living Status: Other Family Entry Into Home: [facility] ADL-Prior Level of Function SCALE: Activities may be completed with or without assistive devices. 5-Yrycvnhsvw-mqdyczy completes the activity by him/herself with no assistance from a helper. 5-Set-up or Clean-up Assistance-helper sets up or cleans up; patient completes activity. [place] assists only prior to or following the activity. 4-Supervision or Touching Assistance-helper provides verbal cues and/or touching/steadying and/or contact guard assistance as patient completes activity. Assistance may be provided throughout the activity or intermittently. 3-Partial/Moderate Assistance-helper does LESS THAN HALF the effort. [place] lifts, holds or supports trunk or limbs, but provides less than half the effort. 2-Substantial/Maximal Assistance-helper does MORE THAN HALF the effort. [place] lifts or holds trunk or limbs and provides more than half the effort. 7-Xrmimxmic-lbjpxi does ALL the effort. Patient does none of the effort to complete the activity. Or, the assistance of 2 or more helpers is required for the patient to complete the activity. If activity was not attempted, code reason: 7-Patient Refused. 9-Not Applicable-not attempted and the patient did not perform the activity before the current illness, exacerbation or injury. 10-Not Attempted due to Environmental Limitations-(lack of equipment, weather restraints, etc.). 88-Not Attempted due to Medical Conditions or Safety Concerns. ADL PLOF Comments Patient has not been getting OOB and has required assistance to relieve BOWEL impaction. Patient ambulates to bathroom w/ Assist of 2 and FWW w/ gait belt, transfers to toilet Moderate assistance. Garment management provided by additional person. Patient sustains static stance for toilet hygiene and clothing manage but does not participate Self Care: Needed Some Help Functional Cognition: Needed Some Help Drive Self: No OT Current Status Subjective Delayed responses and mostly non verbal Mental Status/Objective Patient Orientation: Person (ID bracelet) Attachments: Fatima Catheter Current Hearing Aids: No Upper Extremity ROM IMPAIRED Upper Extremity Coordination IMPAIRED, FAIR Upper Extremity Sensation NA Upper Extremity Strength +2/5 grossly ADL-Treatment Eating (QC): 4 Oral Hygiene (QC): 2 Shower/Bathe Self (QC): 2 (sponge) Upper Body Dressing (QC): 2 Lower Body Dressing (QC): 1 On/Off Footwear (QC): 1 Toileting Hygiene (QC): 1 Education OT Patient Education: Correct positioning, Exercise program, Instructions to caregiver, Modified ADL techniques, Progress toward Goal/Update tx plan, Purpose of tx/functional activities, Reviewed precautions, Rehab process, Safety issues, Transfer techniques Teaching Recipient: Patient, Family Teaching Methods: Demonstration, Discussion Response to Teaching: Verbalize Understanding, Reinforcement Needed OT Chargemaster Analyst Goals Chargemaster Analyst Goals Eating (QC): 5 Oral Hygiene (QC): 5 Toileting Hygiene (QC): 4 Shower/Bathe Self (QC): 3 Upper Body Dressing (QC): 4 Lower Body Dressing (QC): 4 On/Off Footwear (QC): 4 1=Demonstrate adherence to instructed precautions during ADL tasks. 2=Patient will verbalize/demonstrate understanding of assistive devices/modifications for ADL. 3=Patient will improve strength/tolerance for activity to enable patient to perform ADL's. OT Education/Plan Problem List/Assessment Assessment: Decreased Activ Tolerance, Decreased Safety Aware, Decreased UE Strength, Dependent Transfers, Impaired Bed Mobility, Impaired Cognition, Impaired Coordination, Impaired Funct Balance, Impaired Self-Care Skills, Restricted Funct UE ROM Discharge Recommendations Plan/Recommendations: Continue POC Therapy Discharge Recommendati: Post Acute OT Equpiment Recommendations-D/C: Extended Shower Sprayer, Rails on Toilet Treatment Plan/Plan of Care Treatment,Training & Education: Yes Patient would benefit from OT for education, treatment and training to promote independence in ADL's, mobility, safety and/or upper extremity function for ADL's. Plan of Care: ADL Retraining, Caregiver Training, Concurrent Therapy, Functional Mobility, Group Exercise/Act as Ind, UE Funct Exercise/Act, UE Neuromus Re-Ed/Coord Treatment Duration: Nov 28, 2022 Frequency: 3 times per week (3-5 times week) Estimated Hrs Per Day: .25 hour per day Agreement: Yes Rehab Potential: Fair Time Start Time: 14:10 Stop Time: 14:33 DATE: Nov 23, 2022 Total Time Billed (hr/min): 23 Billed Treatment Time LASHAY CASTRO 23 min MIK MAHMOOD OT Nov 23, 2022 15:13
--- NOTE | 2022-11-23 15:27 | Physical Therapy Daily Note ---
PT Daily Note-Current Subjective Patient lying supine in bed upon PT arrival, agreeable to treatment. Pain Section J - Health Conditions 1. Rarely or not at all 2. Occasionally 3. Frequently 4. Almost constantly 8. Unable to answer Pain Effect on Sleep: 8 Pain Interference with Therapy: 8 Pain Interference w/Day-to-Day: 8 Transfers SCALE: Activities may be completed with or without assistive devices. 0-Gydnrgwhgu-kyfbndi completes the activity by him/herself with no assistance from a helper. 5-Set-up or Clean-up Assistance-helper sets up or cleans up; patient completes activity. [place] assists only prior to or following the activity. 4-Supervision or Touching Assistance-helper provides verbal cues and/or touching/steadying and/or contact guard assistance as patient completes activity. Assistance may be provided throughout the activity or intermittently. 3-Partial/Moderate Assistance-helper does LESS THAN HALF the effort. [place] lifts, holds or supports trunk or limbs, but provides less than half the effort. 2-Substantial/Maximal Assistance-helper does MORE THAN HALF the effort. [place] lifts or holds trunk or limbs and provides more than half the effort. 6-Ypgjuifvz-hlkvdb does ALL the effort. Patient does none of the effort to complete the activity. Or, the assistance of 2 or more helpers is required for the patient to complete the activity. If activity was not attempted, code reason: 7-Patient Refused. 9-Not Applicable-not attempted and the patient did not perform the activity before the current illness, exacerbation or injury. 10-Not Attempted due to Environmental Limitations-(lack of equipment, weather restraints, etc.). 88-Not Attempted due to Medical Conditions or Safety Concerns. Roll Left & Right (QC): 3 Sit to Lying (QC): 3 Lying to Sitting/Side of Bed(Q: 3 Sit to Stand (QC): 2 Chair/Jmp-py-Emanv Xfer(QC): 3 Toilet Transfer (QC): 2 Weight Bearing Right Lower Extremity: Right Full Weight Bearing Left Lower Extremity: Left Full Weight Bearing Gait Training Does the Patient Walk?: Yes Distance: 10' x 2 Walk 10 feet (QC): 2 Gait Assistive Device: FWW Assessment Current Status: Fair Progress Patient tolerated treatment much better this date. Patient performs all bed mobility with min A, transfers with mod/max A. Patient ambulates into the BR with FWW, with mod A (x2) and frequent verbal cues for posture, gait, use of FWW. Patient required max A x 2 for standing and MORTGAGE COLLECTOR for cleaning. Patient in chair post treatment with all needs met, nursing notified, call light in hand and family in the room. PT Assembly Riveter Goals [facility] Goals PT [facility] Goals Time Frame: Dec 31, 2022 Roll Left & Right (QC): 5 Sit to Lying (QC): 5 Lying-Sitting on Side/Bed(QC): 5 Sit to Stand (QC): 4 Chair/Zel-wa-Dysng Xfer(QC): 4 Toilet Transfer (QC): 4 Does the Patient Walk: Yes Walk 10 feet (QC): 3 Walk 50ft with 2 Turns (QC): 3 PT Plan Treatment/Plan Treatment Plan: Continue Plan of Care Treatment Plan: Bed Mobility, Education, Functional Activity [place], Functional Strength, Group Therapy, Gait, Safety, Therapeutic Exercise, Transfers Treatment Duration: Dec 31, 2022 Frequency: 5 times per week Estimated Hrs Per Day: .25 hour per day Patient and/or Family Agrees t: Yes Safety Risks/Education Patient Education: Gait Training, Transfer Techniques Teaching Recipient: Patient Teaching Methods: Demonstration, Discussion Response to Teaching: Reinforcement Needed Time Time In: 1402 Time Out: 1426 DATE: Nov 23, 2022 Total Billed Treatment Time: 24 Total Billed Treatment Visit, FA (2) VIVIENNE WHALEN PT Nov 23, 2022 15:27
[2022-11-23 15:55] VITALS: BP 133/68
[2022-11-23 20:08] VITALS: BP 155/81
[2022-11-23] MEDS: MAGNESIUM OXIDE 400 MG TABLET PO SCH (20:18)
[2022-11-23] MEDS: ASPIRIN enteric coated 81MG TABLET PO SCH (20:18)
[2022-11-23] MEDS: THERAPEUTIC MULTIVITAMIN W/MINERALS TABLET PO SCH (20:18)
[2022-11-23] MEDS: FENOFIBRATE, Micronized 134 MG CAPSULE PO SCH (20:18)
[2022-11-23] MEDS: LACTOBACILLUS ACIDOPHILUS (PROBIOTIC) CAPSULE PO SCH (20:18)
[2022-11-23] MEDS: LOSARTAN 100 MG TABLET PO SCH (20:19)
[2022-11-24] VITALS: BP 163/78
[2022-11-24] MEDS: ACETAMINOPHEN 325 MG TABLET PO PRN ×2 (04:03→12:11)
[2022-11-24] MEDS: MEROPENEM INJECTION 500 MG in NS (IVPB) 100 ML 100 ML IV SCH ×3 (04:03→21:33)
[2022-11-24 04:24] VITALS: BP 158/78
[2022-11-24 06:07] LABS: HEMATOCRIT 32 % (35-52); HEMOGLOBIN 10.3 g/dL (11.5-16.0); MEAN CORPUSCULAR HEMOGLOBIN 29 pg (25-34); MEAN CORPUSCULAR HGB CONC 33 g/dL (32-36); MEAN CORPUSCULAR VOLUME 90 fL (80-99); MEAN PLATELET VOLUME 10.1 fL (9.0-12.2); PLATELET COUNT 281 10^3/uL (130-400); WHITE BLOOD COUNT 5.7 10^3/uL (4.3-11.0)
[2022-11-24 06:17] LABS: POTASSIUM 3.7 MMOL/L (3.6-5.0)
[2022-11-24 06:18] LABS: CALCIUM 8.9 MG/DL (8.5-10.1)
[2022-11-24 06:23] LABS: CREATININE SERUM 0.7 MG/DL (0.60-1.30)
[2022-11-24 07:50] VITALS: BP 152/88
[2022-11-24] MEDS: PANTOPRAZOLE 40 MG TABLET PO SCH (08:57)
[2022-11-24] MEDS: hydrALAZINE 25 MG TABLET PO SCH ×3 (08:57→21:30)
[2022-11-24] MEDS: CLOPIDOGREL 75 MG TABLET PO SCH (08:57)
[2022-11-24] MEDS: CALCIUM POLYCARBOPHIL 625 MG TABLET PO SCH (08:57)
[2022-11-24] MEDS: POTASSIUM CHLORIDE 10 MEQ TABLET PO SCH (08:57)
[2022-11-24] MEDS: NIRMATRELVIR/RITONAVIR (PAXLOVID) TABLET PO SCH ×2 (08:58→21:31)
[2022-11-24] MEDS ORDERED: FUROSEMIDE 20 MG TABLET PO SCH (09:00)
--- NOTE | 2022-11-24 10:38 | Occupational Ther Daily Note ---
OT Current Status-Daily Note Subjective Resting in bed, agreeable to participate in therapy.Daughter present Mental Status/Objective Patient Orientation: Person (ID band and daughter verified) Attachments: Fatima Catheter ADL-Treatment Ambulated from bed to toilet, mod assist for transfer w/ 50% VCs and extra time. Patient is not heard of hearing but demonstrates delayed in processing action of command and responses. Therapy Code Descriptions/Definitions Functional Cascade Measure: 0=Not Assessed/NA 4=Minimal Assistance 1=Total Assistance 5=Supervision or Setup 2=Maximal Assistance 6=Modified Cascade 3=Moderate Assistance 7=Complete IndependenceSCALE: Activities may be completed with or without assistive devices. 9-Kboalsppno-avrgdlc completes the activity by him/herself with no assistance from a helper. 5-Set-up or Clean-up Assistance-helper sets up or cleans up; patient completes activity. [place] assists only prior to or following the activity. 4-Supervision or Touching Assistance-helper provides verbal cues and/or touching/steadying and/or contact guard assistance as patient completes activity. Assistance may be provided throughout the activity or intermittently. 3-Partial/Moderate Assistance-helper does LESS THAN HALF the effort. [place] lifts, holds or supports trunk or limbs, but provides less than half the effort. 2-Substantial/Maximal Assistance-helper does MORE THAN HALF the effort. [place] lifts or holds trunk or limbs and provides more than half the effort. 2-Xjichqwgu-slaicj does ALL the effort. Patient does none of the effort to complete the activity. Or, the assistance of 2 or more helpers is required for the patient to complete the activity. If activity was not attempted, code reason: 7-Patient Refused. 9-Not Applicable-not attempted and the patient did not perform the activity before the current illness, exacerbation or injury. 10-Not Attempted due to Environmental Limitations-(lack of equipment, weather restraints, etc.). 88-Not Attempted due to Medical Conditions or Safety Concerns. Eating (QC): 5 (OT provided plastic spoons) On/Off Footwear: 1 Toileting Hygiene (QC): 2 Toilet Transfer (QC): 3 Other Treatment Extremely large BM completed RN notified Education OT Patient Education: Exercise program (strongly encouraged to increase activity), Instructions to caregiver, Modified ADL techniques, Progress toward Goal/Update tx plan, Purpose of tx/functional activities, Reviewed precautions, Rehab process, Safety issues, Transfer techniques Teaching Recipient: Patient, Primary Caregiver Teaching Methods: Demonstration, Discussion Response to Teaching: Verbalize Understanding (daughter), Reinforcement Needed OT Long-Term Goals [place] Goals Eating (QC): 5 Oral Hygiene (QC): 5 Toileting Hygiene (QC): 4 Shower/Bathe Self (QC): 3 Upper Body Dressing (QC): 4 Lower Body Dressing (QC): 4 On/Off Footwear (QC): 4 1=Demonstrate adherence to instructed precautions during ADL tasks. 2=Patient will verbalize/demonstrate understanding of assistive devices/modifications for ADL. 3=Patient will improve strength/tolerance for activity to enable patient to perform ADL's. OT Education/Plan Problem List/Assessment Assessment: Decreased Activ Tolerance, Decreased Safety Aware, Decreased UE Strength, Impaired Bed Mobility, Impaired Cognition, Impaired Coordination, Impaired Funct Balance, Impaired Self-Care Skills Discharge Recommendations Plan/Recommendations: Continue POC Therapy Discharge Recommendati: Post Acute OT Treatment Plan/Plan of Care Treatment,Training & Education: Yes Patient would benefit from OT for education, treatment and training to promote independence in ADL's, mobility, safety and/or upper extremity function for ADL's. Plan of Care: ADL Retraining, Caregiver Training, Concurrent Therapy, Functional Mobility, Group Exercise/Act as Ind, UE Funct Exercise/Act, UE Neuromus Re-Ed/Coord Treatment Duration: Nov 28, 2022 Frequency: 3 times per week (3-5 times week) Estimated Hrs Per Day: .25 hour per day Agreement: Yes Rehab Potential: Fair Time Start Time: 09:00 Stop Time: 09:21 DATE: Nov 24, 2022 Total Time Billed (hr/min): 21 Billed Treatment Time ADL 21 MIK MAHMOOD OT Nov 24, 2022 10:38
--- NOTE | 2022-11-24 10:38 | Physical Therapy Daily Note ---
PT Daily Note-Current Subjective Patient agrees to therapy. Pain Section J - Health Conditions 1. Rarely or not at all 2. Occasionally 3. Frequently 4. Almost constantly 8. Unable to answer Pain Effect on Sleep: 8 Pain Interference with Therapy: 8 Pain Interference w/Day-to-Day: 8 Transfers SCALE: Activities may be completed with or without assistive devices. 3-Xpxefqedij-jbygjfh completes the activity by him/herself with no assistance from a helper. 5-Set-up or Clean-up Assistance-helper sets up or cleans up; patient completes activity. [place] assists only prior to or following the activity. 4-Supervision or Touching Assistance-helper provides verbal cues and/or touching/steadying and/or contact guard assistance as patient completes activity. Assistance may be provided throughout the activity or intermittently. 3-Partial/Moderate Assistance-helper does LESS THAN HALF the effort. [place] lifts, holds or supports trunk or limbs, but provides less than half the effort. 2-Substantial/Maximal Assistance-helper does MORE THAN HALF the effort. [place] lifts or holds trunk or limbs and provides more than half the effort. 3-Hrwnquzea-tflmxe does ALL the effort. Patient does none of the effort to complete the activity. Or, the assistance of 2 or more helpers is required for the patient to complete the activity. If activity was not attempted, code reason: 7-Patient Refused. 9-Not Applicable-not attempted and the patient did not perform the activity before the current illness, exacerbation or injury. 10-Not Attempted due to Environmental Limitations-(lack of equipment, weather restraints, etc.). 88-Not Attempted due to Medical Conditions or Safety Concerns. Lying to Sitting/Side of Bed(Q: 3 Sit to Stand (QC): 3 Chair/Mqx-ma-Yioqk Xfer(QC): 3 Toilet Transfer (QC): 3 sit to stand x 5 sets on toilet due to BM Weight Bearing Right Lower Extremity: Right Full Weight Bearing Left Lower Extremity: Left Full Weight Bearing Gait Training Distance: 15' x 2 Walk 10 feet (QC): 3 Walk 50 ft with 2 Turns(QC): 3 Walk 150 ft (QC): 3 Exercises Seated Therapy Exercises: Sit to stand (5 sets) Assessment Patient incontinent BM requiring assistance to cleanse and change patient. Patient tolerated treatment and is up in recliner with needs met PT Long-Term Goals Long-Term Goals PT Awake Overnight Monitor Goals Time Frame: Dec 31, 2022 Roll Left & Right (QC): 5 Sit to Lying (QC): 5 Lying-Sitting on Side/Bed(QC): 5 Sit to Stand (QC): 4 Chair/Ybi-jf-Uvmzi Xfer(QC): 4 Toilet Transfer (QC): 4 Does the Patient Walk: Yes Walk 10 feet (QC): 3 Walk 50ft with 2 Turns (QC): 3 PT Plan Treatment/Plan Treatment Plan: Continue Plan of Care Treatment Plan: Bed Mobility, Education, Functional Activity [place], Functional Strength, Group Therapy, Gait, Safety, Therapeutic Exercise, Transfers Treatment Duration: Dec 31, 2022 Frequency: 5 times per week Estimated Hrs Per Day: .25 hour per day Patient and/or Family Agrees t: Yes Time Time In: 905 Time Out: 930 DATE: Nov 24, 2022 Total Billed Treatment Time: 25 Total Billed Treatment 1 visit FA x 2 25 min SANTIAGO LOAIZA PT Nov 24, 2022 10:38
[2022-11-24 12:00] VITALS: BP 178/74
[2022-11-24] MEDS: ENOXAPARIN 40 MG/0.4 ML SYRINGE SC SCH (12:12)
[2022-11-24 15:30] VITALS: BP 180/65
[2022-11-24 19:14] VITALS: BP 163/75
[2022-11-24] MEDS: FENOFIBRATE, Micronized 134 MG CAPSULE PO SCH (21:30)
[2022-11-24] MEDS: LACTOBACILLUS ACIDOPHILUS (PROBIOTIC) CAPSULE PO SCH (21:30)
[2022-11-24] MEDS: LOSARTAN 100 MG TABLET PO SCH (21:30)
[2022-11-24] MEDS: THERAPEUTIC MULTIVITAMIN W/MINERALS TABLET PO SCH (21:30)
[2022-11-24] MEDS: ASPIRIN enteric coated 81MG TABLET PO SCH (21:30)
[2022-11-24] MEDS: MAGNESIUM OXIDE 400 MG TABLET PO SCH (21:30)
[2022-11-24] MEDS ORDERED: ALPRAZolam 0.25 MG TABLET PO PRN (23:15)
[2022-11-25] VITALS: BP 174/83
[2022-11-25 04:44] VITALS: BP 158/80
[2022-11-25] MEDS: MEROPENEM INJECTION 500 MG in NS (IVPB) 100 ML 100 ML IV SCH (04:53)
[2022-11-25 06:06] LABS: HEMATOCRIT 32 % (35-52); HEMOGLOBIN 10.6 g/dL (11.5-16.0); MEAN CORPUSCULAR HEMOGLOBIN 30 pg (25-34); MEAN CORPUSCULAR HGB CONC 33 g/dL (32-36); MEAN CORPUSCULAR VOLUME 90 fL (80-99); MEAN PLATELET VOLUME 9.8 fL (9.0-12.2); PLATELET COUNT 310 10^3/uL (130-400); WHITE BLOOD COUNT 5.2 10^3/uL (4.3-11.0)
[2022-11-25 06:17] LABS: POTASSIUM 3.5 MMOL/L (3.6-5.0)
[2022-11-25 06:22] LABS: CREATININE SERUM 0.59 MG/DL (0.60-1.30)
[2022-11-25 07:11] VITALS: BP 158/80
[2022-11-25] MEDS ORDERED: RT-ALBUTEROL HFA 8.5 GM INHALER IH PRN (07:30)
[2022-11-25 07:59] VITALS: BP 180/96
[2022-11-25] MEDS: POTASSIUM CHLORIDE 10 MEQ TABLET PO SCH (08:14)
[2022-11-25] MEDS: hydrALAZINE 25 MG TABLET PO SCH (08:14)
[2022-11-25] MEDS: PANTOPRAZOLE 40 MG TABLET PO SCH (08:14)
[2022-11-25] MEDS: CALCIUM POLYCARBOPHIL 625 MG TABLET PO SCH (08:15)
[2022-11-25] MEDS: CLOPIDOGREL 75 MG TABLET PO SCH (08:15)
[2022-11-25] MEDS: FUROSEMIDE 20 MG TABLET PO SCH (08:15)
[2022-11-25] MEDS: NIRMATRELVIR/RITONAVIR (PAXLOVID) TABLET PO SCH (08:16)
--- NOTE | 2022-11-25 09:14 | Discharge Summary ---
Diagnosis/Chief Complaint Date of Admission Nov 22, 2022 at 11:40 Date of Discharge Discharge Date: Nov 25, 2022 Admission Diagnosis Pyelonephritis Primary Care Keaton Massey DO Discharge Diagnosis (1) COVID-19 (2) UTI (urinary tract infection) Status: Acute (3) Obstipation Status: Acute (4) Hypertension Status: Acute Discharge Summary Discharge Physical Exam Allergies: Coded Allergies: morphine (Verified Allergy, Intermediate, Vomiting, 11/22/22) also hallucinations rivaroxaban (Verified Allergy, Intermediate, 11/22/22) increased bleeding tadalafil (Verified Allergy, Mild, 11/22/22) medication does not work clonidine (Verified Allergy, Unknown, 11/22/22) Vitals & I&Os Vital Signs Date Time Temp Pulse Resp B/P (MAP) Pulse Ox O2 Delivery O2 Flow Rate FiO2 11/25/22 07:59 36.4 80 16 180/96 (124) 96 Nasal Cannula 2.00 11/25/22 07:11 28 Hospital Course Labs (last 24 hrs) Laboratory Tests 11/25/22 05:50: White Blood Count 5.2, Red Blood Count 3.58L, Hemoglobin 10.6L, Hematocrit 32L, Mean Corpuscular Volume 90, Mean Corpuscular Hemoglobin 30, Mean Corpuscular Hem oglobin Concent 33, Red Cell Distribution Width 13.4, Platelet Count 310, Mean Platelet Volume 9.8, Sodium Level 138, Potassium Level 3.5L, Chloride Level 100, Carbon Dioxide Level 30, Anion Gap 8, Blood Urea Nitrogen 13, Creatinine 0.59L, Estimat Glomerular Filtration Rate 87, BUN/Creatinine Ratio 22, Glucose Level 83, Calcium Level 9.0 Microbiology 11/22/22 Blood Culture - Preliminary, Resulted No growth 11/22/22 Urine Culture - Final, Complete Pseudomonas species Patient resulted labs reviewed. Pending Labs Laboratory Tests 11/25/22 05:50: White Blood Count 5.2, Red Blood Count 3.58, Hemoglobin 10.6, Hematocrit 32, Mean Corpuscular Volume 90, Mean Corpuscular Hemoglobin 30, Mean Corpuscular Hemoglobin Concent 33, Red Cell Distribution Width 13.4, Platelet Count 310, Mean Platelet Volume 9.8, Sodium Level 138, Potassium Level 3.5, Chloride Level 100, Carbon Dioxide Level 30, Anion Gap 8, Blood Urea Nitrogen 13, Creatinine 0.59, Estimat Glomerular Filtration Rate 87, BUN/Creatinine Ratio 22, Glucose Level 83, Calcium Level 9.0 Imaging: Reviewed Imaging Report Discharge Home Medications: Active Scripts Active Reported Multivitamin 1 Each Tablet 1 Each PO HS Magnesium (Magnesium Oxide) 400 Mg Magnesium Tablet 400 Mg PO HS Aspirin EC (Aspirin) 81 Mg Tablet.dr 81 Mg PO HS Probiotic (Lactobacillus Acidophilus) 10 Billion Cell Capsule 1 Each PO HS Docusate Sodium 100 Mg Capsule 100 Mg PO BID Furosemide 20 Mg Tablet 40 Mg PO ,,FR TAKES 2 (20MG) TABS Furosemide 20 Mg Tablet 20 Mg PO MEHTA,,,SA Clopidogrel (Clopidogrel Bisulfate) 75 Mg Tablet 75 Mg PO DAILY Potassium Chloride 10 Meq Capsule.er 10 Meq PO DAILY Fiber (Calcium Polycarbophil) 625 Mg Tablet 625 Mg PO DAILY Pantoprazole Sodium 40 Mg Tablet.dr 40 Mg PO DAILY Hydralazine HCl 50 Mg Tablet 50 Mg PO TID Fenofibrate (Fenofibrate,Micronized) 134 Mg Capsule 134 Mg PO HS Losartan Potassium 100 Mg Tablet 100 Mg PO HS Cefdinir 300 Mg Capsule 300 Mg PO BID FILLED 11-19-2022 #10/5 DAY SUPPLY Instructions to patient/family Please see electronic discharge instructions given to patient. Problem Qualifiers (1) UTI (urinary tract infection): Urinary tract infection type: acute cystitis Hematuria presence: without hematuria Qualified Codes: N30.00 - Acute cystitis without hematuria KADY KELLY MD Nov 25, 2022 09:14
[2022-11-25] MEDS: ACETAMINOPHEN 325 MG TABLET PO PRN (09:18)
[2022-11-25 11:42] VITALS: BP 150/75
== END 2022-11-25 10:11 | disposition swing bed (61) | DRG 689 ==
LOC: EDUNIT# 07:34 → ER 07:35 → 4TH 11:40
PROVIDERS: ADMIT Family Medicine; ATTEND Family Medicine
DX: N10 Acute pyelonephritis (principal); U07.1 COVID-19; Z16.12 Extended spectrum beta lactamase (ESBL) resistance; B96.5 Pseudomonas (aeruginosa) (mallei) (pseudomallei) as the cause of diseases classified elsewhere; K59.00 Constipation, unspecified; I10 Essential (primary) hypertension; K21.9 Gastro-esophageal reflux disease without esophagitis; I25.10 Atherosclerotic heart disease of native coronary artery without angina pectoris; E78.00 Pure hypercholesterolemia, unspecified; Z95.5 Presence of coronary angioplasty implant and graft; M19.90 Unspecified osteoarthritis, unspecified site; Z79.899 Other long term (current) drug therapy; Z66 Do not resuscitate; I27.20 Pulmonary hypertension, unspecified
CPT/HCPCS: 36415; 71045; 71250; 74176; 80048; 80053; 81000; 83605; 85007; 85027; 85610; 85730; 87040; 87088; 87186; 87636; 94664

== ENCOUNTER 2022-11-25 10:30 | Inpatient (IN) | payer MEDICARE, OTHER ==
[~2022-11-25] VITALS: Ht 149.9 cm; Wt 62.8 kg
[~2022-11-25 10:30] MED LIST changes: +ANTACID SUSPENSION 30 ML UDC PO PRN; +ASPI-1238 PO; +CALC625T14 PO; +CALCIUM CARBONATE 500 MG CHEW TABLET PO PRN; +CEFD300C3 PO; +DOCU100C37 PO; +FENO134C21 PO; +HYDR-3924 PO; +LOSA100T58 PO; +MAGN400T39 PO; +MULT-1136 PO; +ONDANSETRON INJECTION 4 MG/2 ML (SDV) IV PRN; +PANT40TA52 PO; +POTA10CA84 PO; +SENNA W/DOCUSATE TABLET PO PRN
--- OUTSIDE RECORDS SUMMARY | 2022-11-25 10:54 | XMS REPORT ---
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 Name Role Phone Xwatchlist ALICE MATHEW Attending DANICA BELL Erdoc1 Functional Status No Data Found 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 Date Status Additional Notes Code Code System Td (adult), 2 Lf tet anus toxoid, preservative free, adsorbed 10/09/2019 Completed 09 CVX Td (adult), 2 Lf tet anus toxoid, preservative free, adsorbed 08/07/1999 Completed 09 CVX influenza, unspecifi ed formulation 01/29/2021 Completed 88 CVX Tdap 02/06/2017 Completed 115 CVX Tdap 10/09/2019 Completed 115 CVX Influenza, high dose seasonal 02/19/2016 Completed 135 CVX Influenza, high dose seasonal 03/23/2017 Completed 135 CVX Mental Status No Data Found Results COMPREHENSIVE METABOLIC PANEL - Collect Date/Time: 11/12/2022 04:05 [facility] ID: [id number] [address] [place] [address], [id number] 000 LOINC: Test Value Unit Reference Range Code Code System Flag SODIUM 137 mmol/L 134-148 POTASSIUM 3.9 mmol/L 3.5-5.3 CHLORIDE 107 mmol/L 95-114 CO2 21 mEq/L 22-33 L ANION GAP 13 6-17 GLUCOSE 86 mg/dL 70-110 BUN 13 mg/dL 5-25 CREATININE 0.65 mg/dL 0.50-1.50 CALCIUM 8.9 mg/dL 8.3-10.4 GLOBULIN 2.9 g/dL 2.3-3.5 ALKALINE PHOS 25 U/L 35-130 L SGOT/AST 17 U/L 2-40 SGPT/ALT 6 U/L 6-45 TOTAL BILI 0.3 mg/dL 0.2-1.2 TOTAL PROTEIN 6.0 g/dL 6.0-8.3 ALBUMIN 3.1 g/dL 3.6-5.1 L OSMOLALITY 283 280-295 EGFR 86 mL/min/1.73m2 >59 CBC WITH AUTO DIFF - Collect Date/Time: 11/12/2022 04:05 [facility] ID: [id number] [address] [place], [place], [id number] LOINC: Test Value Unit Reference Range Code Code System Flag WBC 7.98 K/uL 4.00-11.00 RBC 3.55 M/uL 3.60-5.00 L HEMOGLOBIN 10.6 g/dL 11.4-15.5 L HEMATOCRIT 33.5 % 36.0-46.0 L MCV 94.4 fL 80.0-97.0 MCH 29.9 pg 27.0-31.0 MCHC 31.6 g/dL 32.0-36.0 L PLATELETS 314 K/uL 150-400 RDW 13.9 % 11.6-14.8 MPV 9.7 fL 9.3-12.9 NEUT# 5.08 K/uL 2.00-6.90 Neut% 63.6 % 37.0-80.0 #LYMPH 1.81 K/uL 0.60-3.40 %LYMPH 22.7 % 10.0-50.0 #MONO 0.9 K/uL 0.0-0.9 %MONO 11.3 % 0.0-12.0 #EOS 0.1 K/uL 0.0-0.7 %EOS 1.5 % 0.0-7.0 #BASO 0.1 K/uL 0.0-0.2 %BASO 0.80 % 0.00-2.50 IG# 0.01 0.00-0.10 IG% 0.10 0.00-0.50 COMPREHENSIVE METABOLIC PANEL - Collect Date/Time: 11/11/2022 04:00 [facility] ID: [id number] [address] [place] [address], [id number] 000 LOINC: Test Value Unit Reference Range Code Code System Flag SODIUM 135 mmol/L 134-148 POTASSIUM 3.7 mmol/L 3.5-5.3 CHLORIDE 104 mmol/L 95-114 CO2 22 mEq/L 22-33 ANION GAP 13 6-17 GLUCOSE 92 mg/dL 70-110 BUN 9 mg/dL 5-25 CREATININE 0.63 mg/dL 0.50-1.50 CALCIUM 9.0 mg/dL 8.3-10.4 GLOBULIN 3.1 g/dL 2.3-3.5 ALKALINE PHOS 28 U/L 35-130 L SGOT/AST 21 U/L 2-40 SGPT/ALT 9 U/L 6-45 TOTAL BILI 0.3 mg/dL 0.2-1.2 TOTAL PROTEIN 6.6 g/dL 6.0-8.3 ALBUMIN 3.5 g/dL 3.6-5.1 L OSMOLALITY 278 280-295 L EGFR 89 mL/min/1.73m2 >59 CBC WITH AUTO DIFF - Collect Date/Time: 11/11/2022 04:00 [facility] ID: [id number] [address] [place] [address], [phone] LOINC: Test Value Unit Reference Range Code Code System Flag WBC 7.52 K/uL 4.00-11.00 RBC 3.71 M/uL 3.60-5.00 HEMOGLOBIN 11.1 g/dL 11.4-15.5 L HEMATOCRIT 34.1 % 36.0-46.0 L MCV 91.9 fL 80.0-97.0 MCH 29.9 pg 27.0-31.0 MCHC 32.6 g/dL 32.0-36.0 PLATELETS 322 K/uL 150-400 RDW 13.5 % 11.6-14.8 MPV 9.3 fL 9.3-12.9 NEUT# 5.01 K/uL 2.00-6.90 Neut% 66.8 % 37.0-80.0 #LYMPH 1.50 K/uL 0.60-3.40 %LYMPH 19.9 % 10.0-50.0 #MONO 0.8 K/uL 0.0-0.9 %MONO 11.0 % 0.0-12.0 #EOS 0.1 K/uL 0.0-0.7 %EOS 1.3 % 0.0-7.0 #BASO 0.1 K/uL 0.0-0.2 %BASO 0.90 % 0.00-2.50 IG# 0.01 0.00-0.10 IG% 0.10 0.00-0.50 COMPREHENSIVE METABOLIC PANEL - Collect Date/Time: 11/10/2022 04:00 [facility] ID: [id number] [address] [place] [address], [id number] 000 LOINC: Test Value Unit Reference Range Code Code System Flag SODIUM 132 mmol/L 134-148 L POTASSIUM 3.8 mmol/L 3.5-5.3 CHLORIDE 100 mmol/L 95-114 CO2 24 mEq/L 22-33 ANION GAP 12 6-17 GLUCOSE 90 mg/dL 70-110 BUN 11 mg/dL 5-25 CREATININE 0.68 mg/dL 0.50-1.50 CALCIUM 8.9 mg/dL 8.3-10.4 GLOBULIN 3.2 g/dL 2.3-3.5 ALKALINE PHOS 30 U/L 35-130 L SGOT/AST 21 U/L 2-40 SGPT/ALT 9 U/L 6-45 TOTAL BILI 0.3 mg/dL 0.2-1.2 TOTAL PROTEIN 6.8 g/dL 6.0-8.3 ALBUMIN 3.6 g/dL 3.6-5.1 OSMOLALITY 272 280-295 L EGFR 82 mL/min/1.73m2 >59 CBC WITH AUTO DIFF - Collect Date/Time: 11/10/2022 04:00 [facility] ID: [id number] [address] [place] [address], [id number] 000 LOINC: Test Value Unit Reference Range Code Code System Flag WBC 6.50 K/uL 4.00-11.00 RBC 3.89 M/uL 3.60-5.00 HEMOGLOBIN 11.5 g/dL 11.4-15.5 HEMATOCRIT 35.8 % 36.0-46.0 L MCV 92.0 fL 80.0-97.0 MCH 29.6 pg 27.0-31.0 MCHC 32.1 g/dL 32.0-36.0 PLATELETS 323 K/uL 150-400 RDW 13.7 % 11.6-14.8 MPV 9.7 fL 9.3-12.9 NEUT# 3.59 K/uL 2.00-6.90 Neut% 55.2 % 37.0-80.0 #LYMPH 1.76 K/uL 0.60-3.40 %LYMPH 27.1 % 10.0-50.0 #MONO 0.8 K/uL 0.0-0.9 %MONO 12.0 % 0.0-12.0 #EOS 0.3 K/uL 0.0-0.7 %EOS 4.3 % 0.0-7.0 #BASO 0.1 K/uL 0.0-0.2 %BASO 1.20 % 0.00-2.50 IG# 0.01 0.00-0.10 IG% 0.20 0.00-0.50 COMPREHENSIVE METABOLIC PANEL - Collect Date/Time: 11/09/2022 03:45 [facility] ID: [id number] [address] [facility] [place], [place], [id number] LOINC: Test Value Unit Reference Range Code Code System Flag SODIUM 127 mmol/L 134-148 L POTASSIUM 3.9 mmol/L 3.5-5.3 CHLORIDE 97 mmol/L 95-114 CO2 22 mEq/L 22-33 ANION GAP 12 6-17 GLUCOSE 99 mg/dL 70-110 BUN 21 mg/dL 5-25 CREATININE 0.77 mg/dL 0.50-1.50 CALCIUM 8.8 mg/dL 8.3-10.4 GLOBULIN 2.9 g/dL 2.3-3.5 ALKALINE PHOS 27 U/L 35-130 L SGOT/AST 21 U/L 2-40 SGPT/ALT 8 U/L 6-45 TOTAL BILI 0.4 mg/dL 0.2-1.2 TOTAL PROTEIN 6.4 g/dL 6.0-8.3 ALBUMIN 3.5 g/dL 3.6-5.1 L OSMOLALITY 266 280-295 L EGFR 71 mL/min/1.73m2 >59 CBC WITH AUTO DIFF - Collect Date/Time: 11/09/2022 03:45 [facility] ID: [id number] [address] [place] [address], [phone] LOINC: Test Value Unit Reference Range Code Code System Flag WBC 8.85 K/uL 4.00-11.00 RBC 3.66 M/uL 3.60-5.00 HEMOGLOBIN 10.8 g/dL 11.4-15.5 L HEMATOCRIT 33.4 % 36.0-46.0 L MCV 91.3 fL 80.0-97.0 MCH 29.5 pg 27.0-31.0 MCHC 32.3 g/dL 32.0-36.0 PLATELETS 280 K/uL 150-400 RDW 13.8 % 11.6-14.8 MPV 9.7 fL 9.3-12.9 NEUT# 5.95 K/uL 2.00-6.90 Neut% 67.2 % 37.0-80.0 #LYMPH 1.62 K/uL 0.60-3.40 %LYMPH 18.3 % 10.0-50.0 #MONO 1.0 K/uL 0.0-0.9 H %MONO 11.8 % 0.0-12.0 #EOS 0.2 K/uL 0.0-0.7 %EOS 2.1 % 0.0-7.0 #BASO 0.0 K/uL 0.0-0.2 %BASO 0.50 % 0.00-2.50 IG# 0.01 0.00-0.10 IG% 0.10 0.00-0.50 COMPREHENSIVE METABOLIC PANEL - Collect Date/Time: 11/08/2022 11:01 [facility] ID: [id number] [address] [place] [address], [phone] LOINC: Test Value Unit Reference Range Code Code System Flag SODIUM 126 mmol/L 134-148 L POTASSIUM 4.3 mmol/L 3.5-5.3 CHLORIDE 94 mmol/L 95-114 L CO2 23 mEq/L 22-33 ANION GAP 13 6-17 GLUCOSE 100 mg/dL 70-110 BUN 24 mg/dL 5-25 CREATININE 0.86 mg/dL 0.50-1.50 CALCIUM 9.0 mg/dL 8.3-10.4 GLOBULIN 3.2 g/dL 2.3-3.5 ALKALINE PHOS 30 U/L 35-130 L SGOT/AST 22 U/L 2-40 SGPT/ALT 8 U/L 6-45 TOTAL BILI 0.5 mg/dL 0.2-1.2 TOTAL PROTEIN 6.9 g/dL 6.0-8.3 ALBUMIN 3.7 g/dL 3.6-5.1 OSMOLALITY 265 280-295 L EGFR 62 mL/min/1.73m2 >59 CBC WITH AUTO DIFF - Collect Date/Time: 11/08/2022 11:01 [facility] ID: [id number] [address] [place], [place], [id number] 000 LOINC: Test Value Unit Reference Range Code Code System Flag WBC 9.20 K/uL 4.00-11.00 RBC 3.96 M/uL 3.60-5.00 HEMOGLOBIN 11.7 g/dL 11.4-15.5 HEMATOCRIT 36.0 % 36.0-46.0 MCV 90.9 fL 80.0-97.0 MCH 29.5 pg 27.0-31.0 MCHC 32.5 g/dL 32.0-36.0 PLATELETS 284 K/uL 150-400 RDW 13.7 % 11.6-14.8 MPV 9.8 fL 9.3-12.9 NEUT# 7.27 K/uL 2.00-6.90 H Neut% 79.1 % 37.0-80.0 #LYMPH 0.84 K/uL 0.60-3.40 %LYMPH 9.1 % 10.0-50.0 L #MONO 1.0 K/uL 0.0-0.9 H %MONO 10.9 % 0.0-12.0 #EOS 0.1 K/uL 0.0-0.7 %EOS 0.5 % 0.0-7.0 #BASO 0.0 K/uL 0.0-0.2 %BASO 0.40 % 0.00-2.50 IG# 0.00 0.00-0.10 IG% 0.00 0.00-0.50 URINE CULTURE - Collect Date/Time: 11/08 10:44 [facility] ID: [id number] [address] [place], [place], [id number] LOINC: Test Value Unit Reference Range Code Code System Flag FINAL REPORT See Comment URINALYSIS AUTO W/ MICROSCOPIC - Collect Date/Time: 11/08/2022 10:44 [facility] ID: [id number] [address] [place], [place], [id number] LOINC: Test Value Unit Reference Range Code Code System Flag Color Yellow Colorless-Lt. Yellow Appear Clear Clear Glucose. Negative Negative Bilirubin Negative Negative Ketones Negative Negative Sp.[place] 1.015 1.000-1.030 Blood Negative Negative pH 6.5 5-8.5 Protein Negative Negative Urobil 0.2 E.U./dL 0.2-1.0 A Nitrite Negative Negative Leukocytes Negative Negative U.WBC 5-10/HPF A U.RBC Negative Bacteria Negative Epithelial 0-5/HPF A Mucus 1+ A Urine Crystals None Seen Ur Casts None Seen Urine Yeast Not Present Urine Volume Sufficient Other See Comment A Social History Type Status Start Date End Date Code Code System Smoking History Never smoker (Never Smoked ) 715123990 SNOMED CT Smoking History Unknown if ever smoked 459811515 SNOMED CT Sex Female 89 Gender Identity Female [id number] SNOMED CT Vital Signs Vital Sign Value Unit Huntington Value Huntington Unit Date/Time Recent/Initial? Code Cod e System Body Mass Index 28.12 kg/m2 11/08/2022 09:33 Initial 04293-9 LOINC Systolic Blood Pressure 162 mm[Hg] 11/12/2022 12:10 Most Recent 8480-6 LOINC Diastolic Blood Pressure 71 mm[Hg] 11/12/2022 12:10 Most Recent 8462-4 LOINC Systolic Blood Pressure 176 mm[Hg] 11/08/2022 09:33 Initial 8480-6 LOINC Diastolic Blood Pressure 78 mm[Hg] 11/08/2022 09:33 Initial 8462-4 LOINC Body Surface Area 1.66 m2 11/08/2022 09:33 Initial 3140-1 LOINC Height 152.4000 cm 60.00 in 11/08/2022 09:33 Initial 8302-2 LOINC O2 Saturation 95 % 11/12/2022 12:10 Most Recent 06647-1 LOINC O2 Saturation 95 % 11/08/2022 09:33 Initial 60016-1 LOINC Pulse 83.0 /min 0 11/12/2022 12:10 Most Recent 8867-4 LOINC Pulse 77.0 /min 0 11/08/2022 09:33 Initial 8867-4 LOINC Respiration 16 /min 11/12/2022 06:54 Most Recent 9279-1 LOINC Respiration 16 /min 11/08/2022 09:33 Initial 9279-1 LOINC Temperature 37.9 Ebony 100.3 F 11/12/2022 12:10 Most Recent 8310-5 LOINC Temperature 36.8 Ebony 98.3 F 11/08/2022 09:33 Initial 8310-5 LOINC Weight 106.82 kg 235.50 lbs 11/12/2022 04:52 Most Recent 16102-9 LOINC Weight 65.32 kg 144.00 lbs 11/08/2022 09:33 Initial 01579-6 [facility] Medications Medication Start Date En d Date Route Frequency Dose Code Code System Medication Instructions Home Meds Aspirin 81MG Oral Ta blet, Enteric Coated 11/09/2021 Unknown ORAL 81 MILLIGRAMS 576462 RxNorm TAKE 81 MILLIGRAMS ORAL Fenofibrate 134MG Or al Capsule 11/09/2021 Unknown ORAL At Bedtime 134 MILLIGRAMS 354984 RxNorm TAKE 134 MILLIGRAMS ORAL At Bedtime Losartan Potassium 1 00MG Oral Tablet 11/09/2021 Unknown ORAL Once A Day 100 MILLIGRAMS 229818 RxNorm TAKE 100 MILLIGRAMS ORAL Once A Day Nitroglycerin 0.4MG Sublingual Tablet 11/09/2021 Unknown SUBLI NGUAL As Needed 0.4 MILLIGRAMS 190080 RxNorm 0.4 MILLIGRAMS SUBLINGUAL As Needed Pantoprazole Sodium 40 MG Oral Tablet, Delayed Release 11/09/2021 Unknown ORAL Once A Day 40 MG 981152 RxNorm TAKE 40 MG ORAL Once A Day Plavix 75MG Oral Tablet 11/09/2021 Unknown ORAL 75 MILLIGRAMS 989788 RxNorm TAKE 75 MILLIGRAMS O RAL Docusate Sodium 100M G Oral Capsule, Liquid Filled 11/29/2021 Unknown BY MOUTH Twice A Day 100 MILLIGRAMS 1813069 RxNorm TAKE 100 MILLIGRAMS BY MOUTH Twice A Day Tylenol Arthritis 65 0MG Oral Tablet, Extended Release 11/29/2021 Unknown ORAL Three Times A Day As Needed 650 MILLIGRAMS 6371364 RxNorm TAKE 650 MILLIGRAMS ORAL Three Times A Day As Needed Lasix 20MG Oral Tablet 09/19/2022 Unknown ORAL mon, mon, mon 40 MILLIGRAMS RxNorm TAKE 40 MILLIGRAMS ORAL mon, mon, mon Lasix 20MG Oral Tablet 09/19/2022 Unknown ORAL tues, thurs, sat, sun 20 MILLIGRAMS RxNorm TAKE 20 MILLIGRAMS ORAL tues, th, sat, sun Magnesium 250 MG Ora l Tablet 09/19/2022 Unknown ORAL Twice A Day 250 MG 55487 9 RxNorm TAKE 250 MG ORAL Twice A Day Potassium Chloride 1 0MEQ Oral Capsule, Extended Release 09/19/2022 Unknown ORAL Once A Day 10 MEQ 609537 RxNorm TAKE 10 MEQ ORAL Once A Day hydrALAZINE HCl 50MG Oral Tablet 09/19/2022 Unknown ORAL Three Times A Day 50 MILLIGRAMS 153864 RxNorm TAKE 50 MILLIGRAMS ORAL Three Times A Day multivitamin 11/11/2022 Unknown ORAL Once A Day 1 TABLET RxNorm TAKE 1 TABLET ORAL O nce A Day fiberlax 11/11/2022 Unknown ORAL Once A Day 625 MILLIGRAMS RxNorm TAKE 625 MILLIGRAMS ORAL Once A Day Cefdinir 300MG Oral Capsule 11/19/2022 Unknown BY MO UT Twice A Day 1 CAPSULE 20 0346 RxNorm TAKE 1 C APSULE BY MOUTH Twice A Day Assessment You had the following problems: ESSENTIAL (PRIMARY) HYPERTENSION GASTRO-ESOPHAGEAL REFLUX DISEASE WITHOUT ESOPHAGITIS HYPERLIPIDEMIA, UNSPECIFIED CONGESTIVE HEART FAILURE, UNSPECIFIED CHRONIC PAIN SCOLIOSIS LUMBAR DDD WEAKNESS - GENERAL Assessment: Pt presents with decreased functional mobility needing increased assist for transfer and AMB due to poor safety awareness. Pt's limited cognition limits her ability to improve her gait pattern and safety with AMB and transfers. Pt requires assist for all AMB and transfers with FWW while in the hospital to reduce fall risk. Pt was position supine in bed with HOB elevated can call light in reach with family at bed side when PT left the room. PT recommend d/c to home with Home health services. Short Term Goals: 1. Pt will AMB 100ft with FWW with SBA without LOB to improve house hold distance AMB. 2. Pt will transfer sit to stand with FWW with SBA without LOB 3. Pt will transfers stand to sit with FWW with SBA to improve safety with transfers. 4. Correction Goals: 1. Pt will be able to d/c to home with home health services. 2. 3. 4. Hospital Discharge Instructions Should you have any questions prior to discharge, please contact a member of your healthcare team. If you have left the hospital and have any questions, please contact your primary care physician. Education: Diagnosis-related material: hyponatremia; patient portal Given to and reviewed with family, Given to and reviewed with patient. Questions invited. Diagnosis-related material, Given to and reviewed with patient. Understanding verbalized. Discharge Diagnosis: hyponatremia Hyponatremia DIET: Resume usual diet as tolerated. Follow-Up Appointment: Please call your PCP on November 14 to make a hospital follow up appointment. General Activity: Up and about as tolerated. Bathing: May shower. Notify Physician: Fever greater than 101 F (38 C), Pain unrelieved by medication. Nausea and/or vomiting, Persistent nausea, Persistent cough, Chest pain. Questions/Uncertainty. Health Accessories: Dentures: upper plate, Dentures: lower plate. Discharge Destination: Home. Mode of Departure: Wheelchair, Private vehicle. Accompanied By: Daughter. Pain Control Status/Pain Management: Adequate pain control, Wify-wet-yglyzun pain relief medication. Systems Review/Physical Assessment: Afebrile, Orientation asymptomatic, Skin asymptomatic. Respiratory status asymptomatic. Nurse's Notes: Please call your PCP on November 14 for a hospital follow up appointment. Call or return for any concerns. Reason For Referral No Data Found Procedures No Data Found Implants No Data Found Problems Problem Start Date Resol wyatt Date Status Code Code System ESSENTIAL (PRIMARY) HYPERTENSION active 31615496 SNOMED-C T GASTRO-ESOPHAGEAL REFLUX DISEASE WITHOUT ESOPHAGITIS active 039641159 SNOMED-CT HYPERLIPIDEMIA, UNSPECIFIED active 03522739 SNOMED-C T CONGESTIVE HEART FAILURE, UNSPECIFIED active 27537055 SNOMED-C T CHRONIC PAIN active 22632057 SNOMED-CT SCOLIOSIS active 067492868 SNOMED-CT LUMBAR DDD active 32098532 SNOMED-CT WEAKNESS - GENERAL active 35227615 SNOMED-CT SACROILIAC PAIN 2022 resolved 336126806 SNOME D-CT HYPONATREMIA 11/17/2022 resolved 40087213 SNOMED-CT 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 PT POC: gait, transfer, and balance training. Frequency: M-F BID for 7 to 10 tx in 5 days time Duration: until d/c or all goals met Treatment: PT EVAL 90674, gait 47272 x1 Consent: x Patient agrees to treatment x Patient cleared for eval by RN x Patient / family agree to goals Plan: Plan to continue OT POC to address deficits listed above until DC or goals met. Encounters No Data Found Goals No Data Found Health Concerns Section No Data Found Personal Care Team Section Performer Name Performer Role Active Date Inactive Date
--- OUTSIDE RECORDS SUMMARY | 2022-11-25 10:54 | XMS REPORT ---
Author Author LUIS KHOURY HOUSTON Organization Unknown Address [address], [place] [id number] Phone Care Team Providers Care Felter Tennis Balls Name Role Phone KIRILLPEGGY MANZO Kamla Attending Functional Status No Data Found 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 [...] CVX Mental Status No Data Found Results URINE CULTURE - Collect Date/Time: 11/16 21:55 [facility] ID: [id number] [address] [place] [address], [id number] 000 LOINC: Test Value Unit Reference Range Code Code System Flag FINAL REPORT See Comment URINALYSIS AUTO W/ MICROSCOPIC - Collect Date/Time: 11/16/2022 20:50 [facility] ID: [id number] [address] [place] [address], [id number] 000 LOINC: Test Value Unit Reference Range Code Code System Flag Color Yellow Colorless-Lt. Yellow Appear Hazy Clear A Glucose. Negative Negative Bilirubin Negative Negative Ketones Negative Negative Sp.[place] 1.015 1.000-1.030 Blood Negative Negative pH 7.0 5-8.5 Protein Negative Negative Urobil 0.2 E.U./dL 0.2-1.0 A Nitrite Negative Negative Leukocytes Trace Negative A U.WBC 5-10/HPF A U.RBC 2-5/HPF A Bacteria Negative Epithelial 0-5/HPF A Mucus Negative A Urine Crystals None Seen Ur Casts None Seen Urine Yeast Not Present Urine Volume Sufficient Other See Comment A EKG, TRACING ONLY - Collect Date/Time: 0 11/16/2022 20:50 [facility] ID: [id number] [address] [place] [address], [id number] 000 LOINC: Test Value Unit Reference Range Code Code System Flag EKG Complete COVID-19 RAPID - Collect Date/Time: 11/01 20:00 [facility] ID: [id number] [address] [place] [address], [id number] 000 LOINC: Test Value Unit Reference Range Code Code System Flag COVID 19 RAPID Negative COMPREHENSIVE METABOLIC PANEL - Collect Date/Time: 11/16/2022 20:00 [facility] ID: [id number] [address] [place] [address], [id number] 000 LOINC: Test Value Unit Reference Range Code Code System Flag SODIUM 134 mmol/L 134-148 POTASSIUM 4.0 mmol/L 3.5-5.3 CHLORIDE 99 mmol/L 95-114 CO2 24 mEq/L 22-33 ANION GAP 15 6-17 GLUCOSE 100 mg/dL 70-110 BUN 21 mg/dL 5-25 CREATININE 0.78 mg/dL 0.50-1.50 CALCIUM 10.1 mg/dL 8.3-10.4 GLOBULIN 4.1 g/dL 2.3-3.5 H ALKALINE PHOS 30 U/L 35-130 L SGOT/AST 22 U/L 2-40 SGPT/ALT 11 U/L 6-45 TOTAL BILI 0.3 mg/dL 0.2-1.2 TOTAL PROTEIN 8.1 g/dL 6.0-8.3 ALBUMIN 4.0 g/dL 3.6-5.1 OSMOLALITY 280 280-295 EGFR 70 mL/min/1.73m2 >59 CBC WITH AUTO DIFF - Collect Date/Time: 11/16/2022 20:00 [facility] ID: [id number] [address] [place], [place], [id number] 000 LOINC: Test Value Unit Reference Range Code Code System Flag WBC 8.06 K/uL 4.00-11.00 RBC 4.10 M/uL 3.60-5.00 HEMOGLOBIN 12.0 g/dL 11.4-15.5 HEMATOCRIT 38.1 % 36.0-46.0 MCV 92.9 fL 80.0-97.0 MCH 29.3 pg 27.0-31.0 MCHC 31.5 g/dL 32.0-36.0 L PLATELETS 419 K/uL 150-400 H RDW 13.7 % 11.6-14.8 MPV 9.2 fL 9.3-12.9 L NEUT# 6.56 K/uL 2.00-6.90 Neut% 81.4 % 37.0-80.0 H #LYMPH 0.48 K/uL 0.60-3.40 L %LYMPH 6.0 % 10.0-50.0 L #MONO 1.0 K/uL 0.0-0.9 H %MONO 11.8 % 0.0-12.0 #EOS 0.0 K/uL 0.0-0.7 %EOS 0.2 % 0.0-7.0 #BASO 0.0 K/uL 0.0-0.2 %BASO 0.40 % 0.00-2.50 IG# 0.02 0.00-0.10 IG% 0.20 0.00-0.50 XR CHEST SINGLE VIEW - Completed: 2022 22:34 LOINC: [id number] \DRAo\\PGNo\\MRB2\ [address] [address] ---------NAME--------- NUM PRIYA SEX AGE ADMIT DISC. XRAY# F/C TYPE JEN LUIS [id number] F 87 11/16/22 11/16/22 63697 MB4 E/R DATE OF : 1935 M/R# [id number] PH#: [id number] ED-01 LOCATION: TRANSCRIBED: 11/17/22 8:46 0 XR CHEST SINGLE VIEW [id number] COMPLETED:11/16/22 22:34 YENNY [id number] {REASON FOR CHEST: Cough PHYSICIAN: Monique ROY R A D I O L O G Y R E P O R T [facility] Final Report Patient: LUIS LI Time Out: 08:46 Exam(s): XR CHEST SINGLE VIEW EXAM: XR CHEST SINGLE VIEW HISTORY: Cough. TECHNIQUE: Frontal view of the chest. COMPARISON: 09/16/2022 FINDINGS: The patient is rotated to the left. Lung volumes are normal. No consolidation is seen. The cardiac silhouette appears mildly large. There is calcification of the mitral annulus. No large pleural effusion or pneumothorax is seen. Bone density is diffusely low. There are degenerative changes in the shoulders and spine. IMPRESSION: The patient is rotated to the left. There is mild cardiomegaly but no acute pulmonary abnormality is seen. Interpreted by Logan Shah MD [facility] Exam Id [id number] Social History Type Status Start Date End Date Code Code System Smoking History Never smoker (Never Smoked ) 870908899 SNOMED CT Smoking History Unknown if ever smoked [id number] SNOMED CT Sex Female 89 Gender Identity Female [id number] SNOMED CT Vital Signs Vital Sign Value Unit Helton Value Helton Unit Date/Time Recent/Initial? Code Cod e System Body Mass Index 27.44 kg/m2 11/16/2022 19:38 Initial 18579-6 LOINC Systolic Blood Pressure 210 mm[Hg] 11/16/2022 19:38 Initial 8480-6 [facility] Diastolic Blood Pressure 93 mm[Hg] 11/16/2022 19:38 Initial 8462-4 [facility] Body Surface Area 1.73 m2 11/16/2022 19:38 Initial 3140-1 [facility] Height 157.4800 cm 62.00 in 11/16/2022 19:38 Most Recent 8302-2 [facility] Height 157.4800 cm 62.00 in 11/16/2022 19:38 Initial 8302-2 [facility] O2 Saturation 94 % 11/16/2022 19:38 Initial 55666-6 [facility] Pulse 98.0 /min 0 11/16/2022 19:38 Initial 8867-4 [facility] Respiration 20 /min 11/16/2022 19:38 Initial 9279-1 [facility] Temperature 37.2 Ebony 99.0 F 11/16/2022 19:38 Initial 8310-5 [facility] Weight 68.04 kg 150.00 lbs 11/16/2022 19:38 Initial 56566-5 [facility] Medications Medication Start Date En d Date Route Frequency Dose Code Code System Medication Instructions Home Meds Aspirin 81MG Oral Ta blet, Enteric Coated 11/09/2021 Unknown ORAL 81 MILLIGRAMS 568666 RxNorm TAKE 81 MILLIGRAMS ORAL Fenofibrate 134MG Or al Capsule 11/09/2021 Unknown ORAL At Bedtime 134 MILLIGRAMS 561898 RxNorm TAKE 134 MILLIGRAMS ORAL At Bedtime Losartan Potassium 1 00MG Oral Tablet 11/09/2021 Unknown ORAL Once A Day 100 MILLIGRAMS 082610 RxNorm TAKE 100 MILLIGRAMS ORAL Once A Day Nitroglycerin 0.4MG Sublingual Tablet 11/09/2021 Unknown SUBLI NGUAL As Needed 0.4 MILLIGRAMS 963715 RxNorm 0.4 MILLIGRAMS SUBLINGUAL As Needed Pantoprazole Sodium 40 MG Oral Tablet, Delayed Release 11/09/2021 Unknown ORAL Once A Day 40 MG 259205 RxNorm TAKE 40 MG ORAL Once A Day Plavix 75MG Oral Tablet 11/09/2021 Unknown ORAL 75 MILLIGRAMS 715412 RxNorm TAKE 75 MILLIGRAMS O RAL Docusate Sodium 100M G Oral Capsule, Liquid Filled 11/29/2021 Unknown BY MOUTH Twice A Day 100 MILLIGRAMS 1811207 RxNorm TAKE 100 MILLIGRAMS BY MOUTH Twice A Day Tylenol Arthritis 65 0MG Oral Tablet, Extended Release 11/29/2021 Unknown ORAL Three Times A Day As Needed 650 MILLIGRAMS 6886921 RxNorm TAKE 650 MILLIGRAMS ORAL Three Times A Day As Needed Lasix 20MG Oral Tablet 09/19/2022 Unknown ORAL mon, wed, fri 40 MILLIGRAMS RxNorm TAKE 40 MILLIGRAMS ORAL mon, mon, fri Lasix 20MG Oral Tablet 09/19/2022 Unknown ORAL tues, thurs, sat, sun 20 MILLIGRAMS RxNorm TAKE 20 MILLIGRAMS ORAL tues, thurs, sat, sun Magnesium 250 MG Ora l Tablet 09/19/2022 Unknown ORAL Twice A Day 250 MG 69926 9 RxNorm TAKE 250 MG ORAL Twice A Day Potassium Chloride 1 0MEQ Oral Capsule, Extended Release 09/19/2022 Unknown ORAL Once A Day 10 MEQ 243119 RxNorm TAKE 10 MEQ ORAL Once A Day hydrALAZINE HCl 50MG Oral Tablet 09/19/2022 Unknown ORAL Three Times A Day 50 MILLIGRAMS 097484 RxNorm TAKE 50 MILLIGRAMS ORAL Three Times A Day multivitamin 11/11/2022 Unknown ORAL Once A Day 1 TABLET RxNorm TAKE 1 TABLET ORAL O nce A Day fiberlax 11/11/2022 Unknown ORAL Once A Day 625 MILLIGRAMS RxNorm TAKE 625 MILLIGRAMS ORAL Once A Day Cefdinir 300MG Oral Capsule 11/19/2022 Unknown BY [facility] Twice A Day 1 CAPSULE 20 0346 RxNorm TAKE 1 C APSULE BY MOUTH Twice A Day Assessment You had the following problems: ESSENTIAL (PRIMARY) HYPERTENSION GASTRO-ESOPHAGEAL REFLUX DISEASE WITHOUT ESOPHAGITIS HYPERLIPIDEMIA, UNSPECIFIED CONGESTIVE HEART FAILURE, UNSPECIFIED CHRONIC PAIN SCOLIOSIS LUMBAR DDD [facility] Hospital Discharge Instructions Should you have any questions prior to discharge, please contact a member of your healthcare team. If you have left the hospital and have any questions, please contact your primary care physician. Reason For Referral No Data Found Procedures No Data Found Implants No Data Found Problems Problem Start Date Resol wyatt Date Status Code Code System ESSENTIAL (PRIMARY) HYPERTENSION active 58540222 SNOMED-C T GASTRO-ESOPHAGEAL REFLUX DISEASE WITHOUT ESOPHAGITIS active 855084991 SNOMED-CT HYPERLIPIDEMIA, UNSPECIFIED active 21045676 SNOMED-C T CONGESTIVE HEART FAILURE, UNSPECIFIED active 18546327 SNOMED-C T CHRONIC PAIN active 46143243 SNOMED-CT SCOLIOSIS active 711115503 SNOMED-CT LUMBAR DDD active 82225892 SNOMED-CT WEAKNESS - GENERAL active 72402628 SNOMED-CT SACROILIAC PAIN 2022 resolved 491592698 SNOME D-CT HYPONATREMIA 11/17/2022 resolved 35130956 SNOMED-CT CAD 11/17/2022 resolved 37928505 SNOMED-CT Allergies and Adverse Reactions Allergy Substance Reaction Severity Start Date Concern Status Code Code System CLONIDINE Active 2599 RxNorm MORPHINE Active 7052 RxNorm TADALAFIL Active 664037 RxNorm XARELTO Active 9383698 RxNorm Plan of Treatment No Data Found Encounters No Data Found Goals No Data Found Health Concerns Section No Data Found Personal Care Team Section Performer Name Performer Role Active Date Inactive Date Imaging Narrative Notes [facility] \TM00\\12PI\\DRAo\\BM09\\PGNo\\MRB2\ \MRHo\ [facility] [address] [place] [address] ---------NAME--------- NUMBER SEX AGE ADMIT DISC. XRAY# F/C TYPE JEN LUIS [id number] F 87 11/16/22 11/16/22 70482 MB4 E/R DATE OF : 1935 M/R# [id number] PH#: [id number] ED-01 \MRHx\ LOCATION: TRANSCRIBED: 11/17/22 8:46 0 XR CHEST SINGLE VIEW [id number] COMPLETED:11/16/22 22:34 YENNY [id number] {REASON FOR CHEST: Cough PHYSICIAN: Monique ROY R A D I O L O G Y R E P O R T [facility] Final Report Patient: LUIS LI Time Out: 08:46 Exam(s): XR CHEST SINGLE VIEW EXAM: XR CHEST SINGLE VIEW HISTORY: Cough. TECHNIQUE: Frontal view of the chest. COMPARISON: 09/16/2022 FINDINGS: The patient is rotated to the left. Lung volumes are normal. No consolidation is seen. The cardiac silhouette appears mildly large. There is calcification of the mitral annulus. No large pleural effusion or pneumothorax is seen. Bone density is diffusely low. There are degenerative changes in the shoulders and spine. IMPRESSION: The patient is rotated to the left. There is mild cardiomegaly but no acute pulmonary abnormality is seen. Interpreted by Logan Shah MD [facility] Exam Id [id number]
[2022-11-25] MEDS ORDERED: RT-ALBUTEROL SULF 2.5 MG/3 ML PRE-MIX VIAL INH PRN (11:00)
--- NOTE | 2022-11-25 11:15 | Occupational Therapy Eval ---
OT Evaluation-General/PLF Medical Diagnosis Admission Date Nov 25, 2022 at 10:30 Medical Diagnosis: UTI Onset Date: Nov 21, 2022 Therapy Diagnosis Therapy Diagnosis: Weakness, confusion, need for assistance w/ personal care Height/Weight Height (Feet): 5 Height (Inches): 0 Weight (Pounds): 171 Weight (Ounces): 8.0 Precautions Precautions/Isolations: Droplet Isolation, Fall Prevention Safety Interventions: Bed Exit Alarm Referral Physician: ROBIN Referral Reason: Evaluation/Treatment Medical History Additional Medical History UTI, encepholopathy Current History Admit to hospital 11/21 and transfer to [facility] 11/25/22 Social History Home: Single Level Current Living Status: Children (daughter) Entry Into Home: Stairs With Railing Steps Into Home: 1 Steps Inside Home: 1 ADL-Prior Level of Function SCALE: Activities may be completed with or without assistive devices. 2-Xrtdmqcwfu-dduyjjt completes the activity by him/herself with no assistance from a helper. 5-Set-up or Clean-up Assistance-helper sets up or cleans up; patient completes activity. [place] assists only prior to or following the activity. 4-Supervision or Touching Assistance-helper provides verbal cues and/or touching/steadying and/or contact guard assistance as patient completes activity. Assistance may be provided throughout the activity or intermittently. 3-Partial/Moderate Assistance-helper does LESS THAN HALF the effort. [place] lifts, holds or supports trunk or limbs, but provides less than half the effort. 2-Substantial/Maximal Assistance-helper does MORE THAN HALF the effort. [place] lifts or holds trunk or limbs and provides more than half the effort. 5-Nkcbzekvi-eiabeh does ALL the effort. Patient does none of the effort to complete the activity. Or, the assistance of 2 or more helpers is required for the patient to complete the activity. If activity was not attempted, code reason: 7-Patient Refused. 9-Not Applicable-not attempted and the patient did not perform the activity before the current illness, exacerbation or injury. 10-Not Attempted due to Environmental Limitations-(lack of equipment, weather restraints, etc.). 88-Not Attempted due to Medical Conditions or Safety Concerns. Self Care: Needed Some Help Functional Cognition: Needed Some Help DME/Equipment Comments walker, raise toilet, GB walk in shower, shower seat Drive Self: No OT Current Status Subjective Resistive to participate today, requires moderate encouragement Mental Status/Objective Patient Orientation: Person airways operations specialist refers to patient having an IT...which she later reports is a UTI Attachments: Fatima Catheter Current Glasses/Contacts: Yes Hearing Aids: No Dentures/Partials: Yes (upper and lower) Hand Dominance: Right Upper Extremity ROM Limited today, rigid movements Upper Extremity Coordination impaired, Fair- Upper Extremity Sensation impaired Upper Extremity Strength -3/5 grossly Had [facility] w/ Physical, Occupational and brief speech Therapy ADL-Treatment Eating (QC): 3 (daughter is feeding patient w. spoon and placing straw in mouth) Oral Hygiene (QC): 1 (daughter is performing denture care, ) Shower/Bathe Self (QC): 88 Upper Body Dressing (QC): 2 Lower Body Dressing (QC): 2 On/Off Footwear (QC): 2 Toileting Hygiene (QC): 2 Patient becomes progressively aggressive and agitated w/ scowl and swinging arms on brief moment, required redirection and calming techniques. Required additional person for patient balance, stability and safety while second person assisted in navigation of FWW, safe route planning and ADLS. Patient required increased assistance for bed mobility from previous day. Daughter is in room and therapy educated daughter on roles Education OT Patient Education: Correct positioning, Exercise program, Modified ADL techniques, Progress toward Goal/Update tx plan, Purpose of tx/functional activities, Reviewed precautions, Rehab process, Safety issues, Transfer techniques, Use of adapted equipment BIMS CAM BIMS Expression of Ideas and Wants: Difficulty Understanding Verbal Content: Usually Understands Brief Interview/Mental Status: Yes IRF EVAN BIMS: IRF EVAN BIMS Response (Comments) Value Repitition of Three Words One 1 Recalls Socks No, Could Not Recall 0 Recalls Blue No, Could Not Recall 0 Recalls Bed No, Could Not Recall 0 Year Missed by 5 Yrs/No Answer 0 Month Missed by 1 Mo/No Answer 0 Day Incorrect or No Answer 0 Total 1 Patient Normally Able to Recal: That he/she in a hsp Should Staff Asses. Mental St.: Yes CAM Mental Status Change/Baseline: 1 Inattention: 2 Disorganized thinkin Altered level of consciousness: 2 (PER DAUGHTER REPORT) OT Short Term Goals Short Term Goals Time Frame: Dec 02, 2022 Eatin Oral hygiene: 4 OT Group Home Goals Group Home Goals Time Frame: Dec 16, 2022 Eating (QC): 5 Oral Hygiene (QC): 4 Toileting Hygiene (QC): 3 Shower/Bathe Self (QC): 3 Upper Body Dressing (QC): 4 Lower Body Dressing (QC): 3 On/Off Footwear (QC): 3 1=Demonstrate adherence to instructed precautions during ADL tasks. 2=Patient will verbalize/demonstrate understanding of assistive devices/modifications for ADL. 3=Patient will improve strength/tolerance for activity to enable patient to perform ADL's. OT Education/Plan Problem List/Assessment Assessment: Decreased Activ Tolerance, Decreased Safety Aware, Decreased UE Strength, Impaired Bed Mobility, Impaired Cognition, Impaired Coordination, Impaired Funct Balance, Impaired Self-Care Skills Discharge Recommendations Plan/Recommendations: Continue POC Therapy Discharge Recommendati: 24 Hour Supervision, Post Acute OT Barriers to Progress PATIENT COGNITION Treatment Plan/Plan of Care Treatment,Training & Education: Yes Patient would benefit from OT for education, treatment and training to promote independence in ADL's, mobility, safety and/or upper extremity function for ADL's. Plan of Care: ADL Retraining, Caregiver Training, Cognitive Retraining, Concurrent Therapy, Functional Mobility, Group Exercise/Act as Ind, UE Funct Exercise/Act, UE Neuromus Re-Ed/Coord Treatment Duration: Dec 09, 2022 Frequency: At least 5 of 7 days/Wk (IRF) Estimated Hrs Per Day: .25 hour per day Agreement: Yes Rehab Potential: Guarded RECREATIONAL THERAPY EVALUATION TO BEGIN TODAY Time Start Time: 11:00 Stop Time: 11:35 DATE: Nov 25, 2022 Total Time Billed (hr/min): 25 Billed Treatment Time 9257-8797 OT MATTHEW co trreat 4309-5246 ADL 25 min MIK MAHMOOD OT Nov 25, 2022 11:15
--- NOTE | 2022-11-25 11:36 | Physical Therapy Evaluation ---
PT Evaluation-General Medical Diagnosis Admission Date Nov 25, 2022 at 10:30 Medical Diagnosis: Covid Onset Date: Nov 21, 2022 Therapy Diagnosis Therapy Diagnosis: generalized weakness/debility Height/Weight Height (Feet): 5 Height (Inches): 0 Weight (Pounds): 171 Weight (Ounces): 8.0 Precautions Precautions/Isolations: Airborne Isolation, Fall Prevention, Standard Precautions Weight Bear Status Right Lower Extremity: Right Full Weight Bearing Left Lower Extremity: Left Full Weight Bearing Referral Physician: Lazaro Reason for Referral: Evaluation/Treatment Medical History Current History SWB due to Covid Social History Home: Single Level Current Living Status: Children (daughter) Entry Into Home: Ramp, Stairs With Railing PT Steps Into Home: 1 PT Steps Inside Home: 1 Prior Prior Level of Function SCALE: Activities may be completed with or without assistive devices. 4-Bdupbxpmci-tkgmciq completes the activity by him/herself with no assistance from a helper. 5-Set-up or Clean-up Assistance-helper sets up or cleans up; patient completes activity. [place] assists only prior to or following the activity. 4-Supervision or Touching Assistance-helper provides verbal cues and/or touching/steadying and/or contact guard assistance as patient completes activity. Assistance may be provided throughout the activity or intermittently. 3-Partial/Moderate Assistance-helper does LESS THAN HALF the effort. [place] lifts, holds or supports trunk or limbs, but provides less than half the effort. 2-Substantial/Maximal Assistance-helper does MORE THAN HALF the effort. [place] lifts or holds trunk or limbs and provides more than half the effort. 9-Zxgisivjq-ahvhpt does ALL the effort. Patient does none of the effort to co mplete the activity. Or, the assistance of 2 or more helpers is required for the patient to complete the activity. If activity was not attempted, code reason: 7-Patient Refused. 9-Not Applicable-not attempted and the patient did not perform the activity before the current illness, exacerbation or injury. 10-Not Attempted due to Environmental Limitations-(lack of equipment, weather restraints, etc.). 88-Not Attempted due to Medical Conditions or Safety Concerns. Bed Mobility: 6 Transfers (B,C,W/C): 6 Gait: 6 Indoor Mobility (Ambulation): Independent Prior Devices Use: Walker PT Evaluation-Current Subjective Patient is very confused and agitated this morning. Family present. Pain Section J - Health Conditions 1. Rarely or not at all 2. Occasionally 3. Frequently 4. Almost constantly 8. Unable to answer Pain Effect on Sleep: 8 Pain Interference with Therapy: 8 Pain Interference w/Day-to-Day: 8 Objective Patient Orientation: Confused Attachments: Fatima Catheter ROM/Strength ROM Lower Extremities bilateral LE WFL Strength Lower Extremities 3/5 grossly bilateral LE all planes Integumentary/Posture Bowel Incontinence: Yes Bladder Incontinence: Fatima Cath Posture trunk flexed posture Neuromuscular (Tone, Coordination, Reflexes) diminished coordination with all mobility Sensory Vision: Functional Hearing: Functional Hand Dominance: Right Transfers Roll Left & Right (QC): 2 Sit to Lying (QC): 2 Lying to Sitting/Side of Bed(Q: 2 Sit to Stand (QC): 2 Chair/Bry-ku-Pqcso Xfer(QC): 2 Toilet Transfer (QC): 2 Car Transfer (QC): 2 (simulated) Gait Mode of Locomotion: Walk Anticipated Mode of Locomotion: Walk Walk 10 feet (QC): 2 Walk 50 ft with 2 Turns(QC): 2 Walk 150 ft (QC): 88 Walking 10ft/uneven surface-QC: 88 Distance: 50' Gait Assistive Device: FWW Comments/Gait Description PT assist for FWW navigation and sequencing Wheelchair Training Wheel 50 ft with 2 turns (QC): 9 Wheel 150 ft (QC): 9 Stairs 1 Step (curb) (QC): 88 4 Steps (QC): 9 12 Steps (QC): 9 Balance Sitting Static: Fair Sitting Dynamic: Fair Standing Static: Poor Standing Dynamic: Poor Picking up an Object (QC): 9 Assessment/Needs PT/OT cotreat due to patient's inability to tolerate extensive therapy on this date. PT address dynamic balance, bed mobility and gait training, as OT address ADL's and cognitive function/problem solving with functional mobility. Patient will benefit from skilled PT to address functional strength and mobility to improve current LOF. Patient became agitated and slightly combative during session requiring redirection to calm and remain on task. Rehab Potential: Fair PT Resawyer Goals Resawyer Goals PT Resawyer Goals Time Frame: Dec 24, 2022 Roll Left to Right (QC): 4 Sit to Lying (QC): 4 Lying-Sitting on Side/Bed(QC): 4 Sit to Stand (QC): 4 Chair/Gvw-fa-Stccu Xfer(QC): 4 Toilet/Commode Transfer (QC): 4 Car Transfer (QC): 4 Walk 10 feet (QC): 4 Walk 10ft-Uneven Surface(QC): 4 Walk 50ft with 2 Turns (QC): 4 Walk 150 ft (QC): 4 Wheel 50 feet with 2 turns (QC: 9 Type: N/A Wheel 150 feet: 9 Type: N/A 1 Step (curb) (QC): 4 4 Steps (QC): 9 12 Steps (QC): 9 Picking up an Object (QC): 9 PT Plan Problem List Problem List: Activity Tolerance, Functional Strength, Safety, Balance, Gait, Transfer, Bed Mobility Treatment/Plan Treatment Plan: Continue Plan of Care Treatment Plan: Bed Mobility, Education, Functional Activity [place], Functional Strength, Gait, Safety, Therapeutic Exercise, Transfers Treatment Duration: Dec 24, 2022 Frequency: 6 times per week Estimated Hrs Per Day: .25 hour per day Patient and/or Family Agrees t: Yes Safety Risks/Education Patient Education: Gait Training, Safety Issues Teaching Recipient: Patient, Family Teaching Methods: Discussion Response to Teaching: Reinforcement Needed Time Time In: 1110 Time Out: 1135 DATE: Nov 25, 2022 Total Billed Treatment Time: 25 Total Billed Treatment 1 visit EVModC 10 min GT 15 min (cotreat with OT) SANTIAGO LOAIZA PT Nov 25, 2022 11:36
[2022-11-25] MEDS ORDERED: RT-ALBUTEROL HFA 8.5 GM INHALER IH PRN (12:00)
[2022-11-25] MEDS: hydrALAZINE 25 MG TABLET PO SCH ×2 (12:28→18:30)
[2022-11-25] MEDS: CEFEPIME INJECTION 2,000 MG in NS (IVPB) 50 ML 50 ML IV SCH (12:28)
[2022-11-25] MEDS: ENOXAPARIN 40 MG/0.4 ML SYRINGE SC SCH (12:28)
[2022-11-25 18:05] VITALS: BP 208/84
[2022-11-25] MEDS: ALPRAZolam 0.25 MG TABLET PO PRN (18:31)
[2022-11-25 20:23] VITALS: BP 186/78
[2022-11-25] MEDS: THERAPEUTIC MULTIVITAMIN W/MINERALS TABLET PO SCH (20:24)
[2022-11-25] MEDS: LACTOBACILLUS ACIDOPHILUS (PROBIOTIC) CAPSULE PO SCH (20:24)
[2022-11-25] MEDS: FENOFIBRATE, Micronized 134 MG CAPSULE PO SCH (20:24)
[2022-11-25] MEDS: ASPIRIN enteric coated 81MG TABLET PO SCH (20:24)
[2022-11-25] MEDS: LOSARTAN 100 MG TABLET PO SCH (20:24)
[2022-11-25] MEDS: MAGNESIUM OXIDE 400 MG TABLET PO SCH (20:24)
[2022-11-25] MEDS: NIRMATRELVIR/RITONAVIR (PAXLOVID) TABLET PO SCH (20:25)
[2022-11-26] MEDS: MELATONIN 3 MG TABLET PO PRN ×2 (00:33→19:36)
[2022-11-26 00:40] VITALS: BP 166/80
[2022-11-26 03:55] VITALS: BP 194/79
[2022-11-26] MEDS: ALPRAZolam 0.25 MG TABLET PO PRN ×2 (04:23→19:35)
[2022-11-26] MEDS: hydrALAZINE INJECTION 20 MG/ML VIAL IV PRN (04:24)
[2022-11-26 05:15] VITALS: BP 154/69
[2022-11-26] MEDS: PANTOPRAZOLE 40 MG TABLET PO SCH (08:42)
[2022-11-26] MEDS: CLOPIDOGREL 75 MG TABLET PO SCH (08:42)
[2022-11-26] MEDS: FUROSEMIDE 20 MG TABLET PO SCH (08:42)
[2022-11-26] MEDS: POTASSIUM CHLORIDE 10 MEQ TABLET PO SCH (08:42)
[2022-11-26] MEDS: hydrALAZINE 25 MG TABLET PO SCH ×3 (08:43→19:35)
[2022-11-26] MEDS: CALCIUM POLYCARBOPHIL 625 MG TABLET PO SCH (08:43)
[2022-11-26] MEDS: NIRMATRELVIR/RITONAVIR (PAXLOVID) TABLET PO SCH ×2 (08:45→19:39)
[2022-11-26 10:07] LABS: HEMATOCRIT 36 % (35-52); MEAN CORPUSCULAR HEMOGLOBIN 30 pg (25-34); MEAN CORPUSCULAR HGB CONC 33 g/dL (32-36); MEAN CORPUSCULAR VOLUME 89 fL (80-99); MEAN PLATELET VOLUME 9.6 fL (9.0-12.2); PLATELET COUNT 355 10^3/uL (130-400); WHITE BLOOD COUNT 6.1 10^3/uL (4.3-11.0)
--- NOTE | 2022-11-26 10:23 | Physical Therapy Daily Note ---
PT Daily Note-Current Subjective Patient is very lethargic and has difficulty communicating. Pain Section J - Health Conditions 1. Rarely or not at all 2. Occasionally 3. Frequently 4. Almost constantly 8. Unable to answer Pain Effect on Sleep: 8 Pain Interference with Therapy: 8 Pain Interference w/Day-to-Day: 8 Transfers SCALE: Activities may be completed with or without assistive devices. 5-Ezuizbixrr-zgjmfhk completes the activity by him/herself with no assistance from a helper. 5-Set-up or Clean-up Assistance-helper sets up or cleans up; patient completes activity. [place] assists only prior to or following the activity. 4-Supervision or Touching Assistance-helper provides verbal cues and/or touching/steadying and/or contact guard assistance as patient completes activity. Assistance may be provided throughout the activity or intermittently. 3-Partial/Moderate Assistance-helper does LESS THAN HALF the effort. [place] lifts, holds or supports trunk or limbs, but provides less than half the effort. 2-Substantial/Maximal Assistance-helper does MORE THAN HALF the effort. [place] lifts or holds trunk or limbs and provides more than half the effort. 5-Xomnxotju-oqwnma does ALL the effort. Patient does none of the effort to co mplete the activity. Or, the assistance of 2 or more helpers is required for the patient to complete the activity. If activity was not attempted, code reason: 7-Patient Refused. 9-Not Applicable-not attempted and the patient did not perform the activity before the current illness, exacerbation or injury. 10-Not Attempted due to Environmental Limitations-(lack of equipment, weather restraints, etc.). 88-Not Attempted due to Medical Conditions or Safety Concerns. Weight Bearing Right Lower Extremity: Right Full Weight Bearing Left Lower Extremity: Left Full Weight Bearing Exercises Supine Ex: LE Protocol Supine Reps: 20 Assessment Current Status: Fair Progress Patient very lethargic today. PT Top Screw Goals Top Screw Goals PT Top Screw Goals Time Frame: Dec 24, 2022 Roll Left & Right (QC): 4 Sit to Lying (QC): 4 Lying-Sitting on Side/Bed(QC): 4 Sit to Stand (QC): 4 Chair/Nxf-ia-Osctp Xfer(QC): 4 Toilet Transfer (QC): 4 Car Transfer (QC): 4 Does the Patient Walk: Yes Walk 10 feet (QC): 4 Walk 50ft with 2 Turns (QC): 4 Walk 150 ft (QC): 4 Walking 10ft on Uneven Surface: 4 1 Step (curb) (QC): 4 4 Steps (QC): 9 12 Steps (QC): 9 Picking up an Object (QC): 9 Wheel 50 feet with 2 turns (QC: 9 Type: N/A Wheel 150 feet: 9 Type: N/A PT Plan Treatment/Plan Treatment Plan: Continue Plan of Care Treatment Plan: Bed Mobility, Education, Functional Activity [place], Functional Strength, Gait, Safety, Therapeutic Exercise, Transfers Treatment Duration: Dec 24, 2022 Frequency: 6 times per week Estimated Hrs Per Day: .25 hour per day Patient and/or Family Agrees t: Yes Time Time In: 934 Time Out: 50 DATE: Nov 26, 2022 Total Billed Treatment Time: 15 Total Billed Treatment 1, EX x 15' SUSAN MENDOZA PT Nov 26, 2022 10:23
[2022-11-26 10:24] LABS: ALBUMIN 3.3 GM/DL (3.2-4.5); POTASSIUM 3.3 MMOL/L (3.6-5.0)
[2022-11-26 10:25] LABS: CALCIUM 9.2 MG/DL (8.5-10.1)
[2022-11-26 10:26] LABS: TOTAL PROTEIN 6.9 GM/DL (6.4-8.2)
[2022-11-26 10:28] LABS: BILIRUBIN,TOTAL 0.4 MG/DL (0.1-1.0)
[2022-11-26 10:30] LABS: CREATININE SERUM 0.59 MG/DL (0.60-1.30)
[2022-11-26] MEDS: ACETAMINOPHEN 325 MG TABLET PO PRN (10:51)
[2022-11-26] MEDS ORDERED: POTASSIUM CL 10MEQ/50ML IVPB 50 ML IV SCH ×3 (12:00→12:15)
[2022-11-26] MEDS: ENOXAPARIN 40 MG/0.4 ML SYRINGE SC SCH (12:34)
[2022-11-26] MEDS: CEFEPIME INJECTION 2,000 MG in NS (IVPB) 50 ML 50 ML IV SCH (12:34)
[2022-11-26] MEDS: NS IV 500 ML 500 ML IV PRN ×2 (12:36→20:37)
[2022-11-26] MEDS: POTASSIUM CL 10MEQ/50ML IVPB 50 ML IV SCH ×8 (12:37→20:38)
[2022-11-26 14:28] LABS: BILIRUBIN,URINE NEGATIVE (NEGATIVE); CLARITY,URINE CLEAR; COLOR,URINE YELLOW; GLUCOSE, URINE (UA) NEGATIVE (NEGATIVE); KETONES,URINE NEGATIVE (NEGATIVE); LEUKOCYTE ESTERASE ,URINE NEGATIVE (NEGATIVE); NITRITE,URINE NEGATIVE (NEGATIVE); PH,URINE 7.5 (5-9); PROTEIN,URINE NEGATIVE (NEGATIVE)
[2022-11-26 14:29] LABS: BACTERIA,URINE NEGATIVE /HPF
[2022-11-26 17:44] VITALS: BP 178/93
[2022-11-26 19:10] VITALS: BP 113/67
--- NOTE | 2022-11-26 19:26 | Progress Note - Hospitalist ---
Subjective HPI/CC On Admission Date Seen by Provider: Nov 26, 2022 Subjective/Events-last exam Pt more anxious today. Family reports she had a rough night. They note this happens when her electrolytes or off or she had a UTI. Objective Exam Vital Signs Vital Signs Date Time Temp Pulse Resp B/P (MAP) Pulse Ox O2 Delivery O2 Flow Rate FiO2 11/26/22 19:10 89 18 113/67 (82) 96 11/26/22 17:44 36.3 Room Air 11/26/22 05:15 2.00 Capillary Refill : General Appearance: No Apparent Distress, Anxious, Chronically ill Respiratory: Lungs Clear Cardiovascular: Regular Rate, Rhythm Neurologic/Psychiatric: Alert, Other (oriented to person and place) Results/Procedures Lab Laboratory Tests 11/26/22 10:00 Patient resulted labs reviewed. Assessment/Plan Assessment and Plan Assess & Plan/Chief Complaint Pyelonephritis Was on cefdinir but worsening Continue Cefepime per sensitivies Blood cultures negative COVID Only on her baseline nocturnal oxygen- no indication for decadron Continue paxlovid MAT protocol PT/OT Discussed she is in the window for worsening condition due to COVID Will get labs and repeat UA Constipation, resolved HTN HLD GERD CAD Continue home meds DVT ppx: KADY Griffin MD Nov 26, 2022 19:26
[2022-11-26] MEDS: LACTOBACILLUS ACIDOPHILUS (PROBIOTIC) CAPSULE PO SCH (19:35)
[2022-11-26] MEDS: FENOFIBRATE, Micronized 134 MG CAPSULE PO SCH (19:35)
[2022-11-26] MEDS: MAGNESIUM OXIDE 400 MG TABLET PO SCH (19:36)
[2022-11-26] MEDS: LOSARTAN 100 MG TABLET PO SCH (19:36)
[2022-11-26] MEDS: ASPIRIN enteric coated 81MG TABLET PO SCH (19:36)
[2022-11-26] MEDS: THERAPEUTIC MULTIVITAMIN W/MINERALS TABLET PO SCH (19:36)
[2022-11-27 05:52] VITALS: BP 163/87
[2022-11-27] MEDS: POTASSIUM CHLORIDE 20 MEQ TABLET PO SCH (06:04)
[2022-11-27 06:19] LABS: HEMATOCRIT 38 % (35-52); HEMOGLOBIN 12.7 g/dL (11.5-16.0); MEAN CORPUSCULAR HEMOGLOBIN 29 pg (25-34); MEAN CORPUSCULAR HGB CONC 33 g/dL (32-36); MEAN CORPUSCULAR VOLUME 89 fL (80-99); MEAN PLATELET VOLUME 9.6 fL (9.0-12.2); PLATELET COUNT 389 10^3/uL (130-400); WHITE BLOOD COUNT 8.7 10^3/uL (4.3-11.0)
[2022-11-27 06:37] LABS: CALCIUM 9.5 MG/DL (8.5-10.1)
[2022-11-27] MEDS: POTASSIUM CL 10MEQ/50ML IVPB 50 ML IV SCH (06:40)
[2022-11-27 06:41] LABS: CREATININE SERUM 0.65 MG/DL (0.60-1.30)
[2022-11-27 06:43] LABS: MAGNESIUM 1.7 MG/DL (1.6-2.4)
[2022-11-27] MEDS: MAGNESIUM 1 GM/100 ML IVPB 100 ML IV SCH ×4 (06:46→10:08)
[2022-11-27] MEDS ORDERED: MAGNESIUM 1 GM/100 ML IVPB 100 ML IV ONE (06:47)
[2022-11-27] MEDS: CLOPIDOGREL 75 MG TABLET PO SCH (08:26)
[2022-11-27] MEDS: FUROSEMIDE 20 MG TABLET PO SCH (08:26)
[2022-11-27] MEDS: PANTOPRAZOLE 40 MG TABLET PO SCH (08:26)
[2022-11-27] MEDS: CALCIUM POLYCARBOPHIL 625 MG TABLET PO SCH (08:26)
[2022-11-27] MEDS: POTASSIUM CHLORIDE 10 MEQ TABLET PO SCH ×2 (08:26→08:43)
[2022-11-27] MEDS: hydrALAZINE 25 MG TABLET PO SCH ×3 (08:27→19:53)
--- NOTE | 2022-11-27 12:05 | Progress Note - Hospitalist ---
Subjective HPI/CC On Admission Date Seen by Provider: Nov 27, 2022 Subjective/Events-last exam Pt sleeping soundly. Opens eyes but otherwise stays asleep. No family at bedside. Spoke with RN. Objective Exam Vital Signs Vital Signs Date Time Temp Pulse Resp B/P (MAP) Pulse Ox O2 Delivery O2 Flow Rate FiO2 11/27/22 09:00 Room Air 11/27/22 05:52 36.1 56 18 163/87 (112) 94 11/26/22 05:15 2.00 Capillary Refill : General Appearance: No Apparent Distress, Chronically ill Respiratory: Lungs Clear, No Respiratory Distress Cardiovascular: Regular Rate, Rhythm Neurologic/Psychiatric: Other (sleeping) Results/Procedures Lab Laboratory Tests 11/27/22 06:10 Patient resulted labs reviewed. Assessment/Plan Assessment and Plan Assess & Plan/Chief Complaint Pyelonephritis Continue Cefepime per sensitivies Blood cultures negative COVID Only on her baseline nocturnal oxygen- no indication for decadron Continue paxlovid MAT protocol PT/OT Constipation, resolved HTN HLD GERD CAD Continue home meds DVT ppx: KADY Griffin MD Nov 27, 2022 12:05
[2022-11-27] MEDS: CEFEPIME INJECTION 2,000 MG in NS (IVPB) 50 ML 50 ML IV SCH (13:52)
[2022-11-27] MEDS: ENOXAPARIN 40 MG/0.4 ML SYRINGE SC SCH (13:52)
[2022-11-27 15:37] VITALS: BP 166/84
[2022-11-27 18:02] VITALS: BP 166/84
[2022-11-27] MEDS: THERAPEUTIC MULTIVITAMIN W/MINERALS TABLET PO SCH (19:53)
[2022-11-27] MEDS: LOSARTAN 100 MG TABLET PO SCH (19:53)
[2022-11-27] MEDS: FENOFIBRATE, Micronized 134 MG CAPSULE PO SCH (19:53)
[2022-11-27] MEDS: ASPIRIN enteric coated 81MG TABLET PO SCH (19:53)
[2022-11-27] MEDS: MELATONIN 3 MG TABLET PO PRN (19:53)
[2022-11-27] MEDS: MAGNESIUM OXIDE 400 MG TABLET PO SCH (19:53)
[2022-11-27] MEDS: LACTOBACILLUS ACIDOPHILUS (PROBIOTIC) CAPSULE PO SCH (19:53)
[2022-11-27] MEDS: ALPRAZolam 0.25 MG TABLET PO PRN (19:53)
[2022-11-28 04:59] VITALS: BP 104/68
[2022-11-28] MEDS: POTASSIUM CHLORIDE 20 MEQ TABLET PO SCH (06:02)
[2022-11-28 06:45] LABS: CALCIUM 9.5 MG/DL (8.5-10.1); CREATININE SERUM 0.94 MG/DL (0.60-1.30); MAGNESIUM 2.4 MG/DL (1.6-2.4)
[2022-11-28] MEDS: MAGNESIUM 1 GM/100 ML IVPB 100 ML IV SCH (06:47)
[2022-11-28] MEDS: POTASSIUM CL 10MEQ/50ML IVPB 50 ML IV SCH (06:47)
[2022-11-28] MEDS: POTASSIUM CHLORIDE 10 MEQ TABLET PO SCH (07:55)
[2022-11-28] MEDS: CLOPIDOGREL 75 MG TABLET PO SCH (07:55)
[2022-11-28] MEDS: hydrALAZINE 25 MG TABLET PO SCH ×3 (07:55→20:22)
[2022-11-28] MEDS: PANTOPRAZOLE 40 MG TABLET PO SCH (07:55)
[2022-11-28] MEDS: CALCIUM POLYCARBOPHIL 625 MG TABLET PO SCH (07:56)
[2022-11-28 08:00] VITALS: BP 157/78
[2022-11-28 08:54] VITALS: BP 104/68
[2022-11-28] MEDS ORDERED: FUROSEMIDE 20 MG TABLET PO SCH (09:00)
[2022-11-28 12:28] LABS: ABG BASE EXCESS 6.2 MMOL/L (-2.5-2.5); ABG OXYGEN SATURATION 95 % (94-100); ABG PCO2 38 MMHG (35-45); ABG PO2 67 MMHG (79-93); ABG TCO2 30.8 MMOL/L (21.0-31.0)
[2022-11-28] MEDS: ENOXAPARIN 40 MG/0.4 ML SYRINGE SC SCH (12:30)
[2022-11-28] MEDS: CEFEPIME INJECTION 2,000 MG in NS (IVPB) 50 ML 50 ML IV SCH (12:30)
[2022-11-28 12:34] LABS: ALLENS TEST YES-POS; INSPIRED O2 ROOM AIR; PATIENT TEMP 36.6; VENTILATOR NO
--- NOTE | 2022-11-28 13:41 | Occupational Ther Daily Note ---
OT Current Status-Daily Note Subjective Pt lethargic, lying in bed. Would say one word answer when roused though would not open eyes. Attempted multiple time to wake pt. Alerted nrsg to pt lethargic and unable to assist with feeding. Mental Status/Objective Patient Orientation: Unable to Assess ADL-Treatment Attempted to wake pt to eat lunch. Pt would not open eyes or close mouth around spoon or straw. Attempted to place liquid in mouth with straw, pt had delayed swallow though continued to keep eyes closed. BAIN terminated session due to p t's lethargy. After session, pt sitting in bed at ~45 degree angle. Call light/phone in reach. All needs met. Nrsg aware of pt's position. Therapy Code Descriptions/Definitions Functional [place] Measure: 0=Not Assessed/NA 4=Minimal Assistance 1=Total Assistance 5=Supervision or Setup 2=Maximal Assistance 6=Modified [place] 3=Moderate Assistance 7=Complete IndependenceSCALE: Activities may be completed with or without assistive devices. 4-Dmuezqkont-popjltv completes the activity by him/herself with no assistance from a helper. 5-Set-up or Clean-up Assistance-helper sets up or cleans up; patient completes activity. [place] assists only prior to or following the activity. 4-Supervision or Touching Assistance-helper provides verbal cues and/or touching/steadying and/or contact guard assistance as patient completes activity. Assistance may be provided throughout the activity or intermittently. 3-Partial/Moderate Assistance-helper does LESS THAN HALF the effort. [place] lifts, holds or supports trunk or limbs, but provides less than half the effort. 2-Substantial/Maximal Assistance-helper does MORE THAN HALF the effort. [place] lifts or holds trunk or limbs and provides more than half the effort. 1-Qcdrdbhmt-uaibsl does ALL the effort. Patient does none of the effort to complete the activity. Or, the assistance of 2 or more helpers is required for the patient to complete the activity. If activity was not attempted, code reason: 7-Patient Refused. 9-Not Applicable-not attempted and the patient did not perform the activity before the current illness, exacerbation or injury. 10-Not Attempted due to Environmental Limitations-(lack of equipment, weather restraints, etc.). 88-Not Attempted due to Medical Conditions or Safety Concerns. Eating (QC): 1 OT Short Term Goals Short Term Goals Time Frame: Dec 02, 2022 Eatin Oral hygiene: 4 OT Chcf Goals Chcf Goals Time Frame: Dec 16, 2022 Acute change in mental status: 1 Inattention: 2 Disorganized thinkin Altered level of consciousness: 2 (PER DAUGHTER REPORT) Eating (QC): 5 Oral Hygiene (QC): 4 Toileting Hygiene (QC): 3 Shower/Bathe Self (QC): 3 Upper Body Dressing (QC): 4 Lower Body Dressing (QC): 3 On/Off Footwear (QC): 3 1=Demonstrate adherence to instructed precautions during ADL tasks. 2=Patient will verbalize/demonstrate understanding of assistive devices/modifications for ADL. 3=Patient will improve strength/tolerance for activity to enable patient to perform ADL's. OT Education/Plan Problem List/Assessment Assessment: Decreased Activ Tolerance, Decreased Safety Aware, Impaired Cognition, Impaired Self-Care Skills Discharge Recommendations Plan/Recommendations: Continue POC Treatment Plan/Plan of Care Patient would benefit from OT for education, treatment and training to promote independence in ADL's, mobility, safety and/or upper extremity function for ADL's. Plan of Care: ADL Retraining, Caregiver Training, Cognitive Retraining, Concurrent Therapy, Functional Mobility, Group Exercise/Act as Ind, UE Funct Exercise/Act, UE Neuromus Re-Ed/Coord Treatment Duration: Dec 09, 2022 Frequency: At least 5 of 7 days/Wk (IRF) Estimated Hrs Per Day: .25 hour per day Agreement: Yes Rehab Potential: Guarded Time Start Time: 13:15 Stop Time: 13:30 DATE: Nov 28, 2022 Total Time Billed (hr/min): 15 Billed Treatment Time 1 visit-ADL 1 (15 min) LIU DUONG Nov 28, 2022 13:41
[2022-11-28] MEDS: NS IV 1000 ML 1,000 ML IV SCH ×2 (14:14→23:51)
--- NOTE | 2022-11-28 15:01 | Physical Therapy Daily Note ---
PT Daily Note-Current Subjective Patient lying supine in bed, mouth open, eyes closed and not responding to verbal stimuli, upon PT arrival. Patients daughter in the room and reports she has been at the hospital ~ an hour and her mother has been like this the whole time. Pain Section J - Health Conditions 1. Rarely or not at all 2. Occasionally 3. Frequently 4. Almost constantly 8. Unable to answer Pain Effect on Sleep: 8 Pain Interference with Therapy: 8 Pain Interference w/Day-to-Day: 8 Mental Status Patient Orientation: Unresponsive Transfers SCALE: Activities may be completed with or without assistive devices. 7-Ysswmmnudh-ajbzmwm completes the activity by him/herself with no assistance from a helper. 5-Set-up or Clean-up Assistance-helper sets up or cleans up; patient completes activity. [place] assists only prior to or following the activity. 4-Supervision or Touching Assistance-helper provides verbal cues and/or touching/steadying and/or contact guard assistance as patient completes activity. Assistance may be provided throughout the activity or intermittently. 3-Partial/Moderate Assistance-helper does LESS THAN HALF the effort. [place] lifts, holds or supports trunk or limbs, but provides less than half the effort. 2-Substantial/Maximal Assistance-helper does MORE THAN HALF the effort. [place] lifts or holds trunk or limbs and provides more than half the effort. 7-Ayahsjsnq-zgrjrd does ALL the effort. Patient does none of the effort to complete the activity. Or, the assistance of 2 or more helpers is required for the patient to complete the activity. If activity was not attempted, code reason: 7-Patient Refused. 9-Not Applicable-not attempted and the patient did not perform the activity before the current illness, exacerbation or injury. 10-Not Attempted due to Environmental Limitations-(lack of equipment, weather restraints, etc.). 88-Not Attempted due to Medical Conditions or Safety Concerns. Weight Bearing Right Lower Extremity: Right Full Weight Bearing Left Lower Extremity: Left Full Weight Bearing Exercises Supine Ex: Ankle pumps, Heel Slides, Short Arc Quads, Straight leg raise, Hip a bd/add Supine Reps: 20 Assessment Current Status: Regressing Patient only responds to LE therapeutic exercise with painful moan. Patient does not respond to verbal stimuli. Patient does not participate in LE exercises, however maybe resisting exercises or is just tight. Patient in bed post treatment with all needs met, call light in reach and daughter in the room. PT Transport Aircrewman Goals Care Home Goals PT Care Home Goals Time Frame: Dec 24, 2022 Roll Left & Right (QC): 4 Sit to Lying (QC): 4 Lying-Sitting on Side/Bed(QC): 4 Sit to Stand (QC): 4 Chair/Grg-zp-Zxrju Xfer(QC): 4 Toilet Transfer (QC): 4 Car Transfer (QC): 4 Does the Patient Walk: Yes Walk 10 feet (QC): 4 Walk 50ft with 2 Turns (QC): 4 Walk 150 ft (QC): 4 Walking 10ft on Uneven Surface: 4 1 Step (curb) (QC): 4 4 Steps (QC): 9 12 Steps (QC): 9 Picking up an Object (QC): 9 Wheel 50 feet with 2 turns (QC: 9 Type: N/A Wheel 150 feet: 9 Type: N/A PT Plan Treatment/Plan Treatment Plan: Continue Plan of Care Treatment Plan: Bed Mobility, Education, Functional Activity [place], Functional Strength, Gait, Safety, Therapeutic Exercise, Transfers Treatment Duration: Dec 24, 2022 Frequency: 6 times per week Estimated Hrs Per Day: .25 hour per day Patient and/or Family Agrees t: Yes Time Time In: 1430 Time Out: 1450 DATE: Nov 28, 2022 Total Billed Treatment Time: 20 Total Billed Treatment Visit, EX VIVIENNE WHALEN PT Nov 28, 2022 15:01
--- NOTE | 2022-11-28 17:32 | Progress Note - Hospitalist ---
Subjective HPI/CC On Admission Date Seen by Provider: Nov 28, 2022 Time Seen by Provider: 12:15 Subjective/Events-last exam She is in bed. She does not follow commands. She does respond to sternal rub. She does not speak. Objective Exam Vital Signs Vital Signs Date Time Temp Pulse Resp B/P (MAP) Pulse Ox O2 Delivery O2 Flow Rate FiO2 11/28/22 08:54 36.3 80 94 11/28/22 08:53 Room Air 0.00 11/28/22 08:00 16 157/78 (104) Capillary Refill : General Appearance: No Apparent Distress, Chronically ill Respiratory: Lungs Clear, No Respiratory Distress Cardiovascular: Regular Rate, Rhythm, No Edema Gastrointestinal: Normal Bowel Sounds, Soft Extremity: Normal Inspection, No Pedal Edema Neurologic/Psychiatric: Alert, Aphasia, Disoriented Results/Procedures Lab Laboratory Tests 11/28/22 05:55 Patient resulted labs reviewed. Imaging: Reviewed Imaging Report Assessment/Plan Assessment and Plan Assess & Plan/Chief Complaint Pyelonephritis Continue Cefepime per sensitivies Blood cultures negative COVID Only on her baseline nocturnal oxygen- no indication for decadron Continue paxlovid MAT protocol PT/OT Delirium Likely dementia Lab workup unremarkabls ABG without CO2 retention Concern for progression of dementia with COVID EDITH Hold Lasix IV fluids Debility PT/OT Constipation, resolved HTN HLD GERD CAD Continue home meds DVT ppx: Lovenox Diagnosis/Problems Diagnosis/Problems (1) Pyelonephritis Status: Acute (2) Delirium Status: Acute (3) Metabolic encephalopathy Status: Acute (4) COVID-19 Status: Acute (5) Advanced age Status: Chronic (6) Poor prognosis Status: Acute (7) EDTIH (acute kidney injury) Status: Acute GREER MILLAN MD Nov 28, 2022 17:32
[2022-11-28 20:05] VITALS: BP 166/63
[2022-11-28] MEDS: LACTOBACILLUS ACIDOPHILUS (PROBIOTIC) CAPSULE PO SCH (20:22)
[2022-11-28] MEDS: THERAPEUTIC MULTIVITAMIN W/MINERALS TABLET PO SCH (20:22)
[2022-11-28] MEDS: ASPIRIN enteric coated 81MG TABLET PO SCH (20:22)
[2022-11-28] MEDS: LOSARTAN 100 MG TABLET PO SCH (20:22)
[2022-11-28] MEDS: MAGNESIUM OXIDE 400 MG TABLET PO SCH (20:22)
[2022-11-28] MEDS: FENOFIBRATE, Micronized 134 MG CAPSULE PO SCH (20:37)
[2022-11-29 05:26] VITALS: BP 160/78
[2022-11-29] MEDS: ACETAMINOPHEN 325 MG TABLET PO PRN (05:36)
[2022-11-29] MEDS: POTASSIUM CHLORIDE 20 MEQ TABLET PO SCH (06:13)
[2022-11-29 06:25] LABS: POTASSIUM 4.1 MMOL/L (3.6-5.0)
[2022-11-29] MEDS: POTASSIUM CL 10MEQ/50ML IVPB 50 ML IV SCH (06:28)
[2022-11-29 06:31] LABS: CREATININE SERUM 0.7 MG/DL (0.60-1.30)
[2022-11-29 06:33] LABS: MAGNESIUM 1.9 MG/DL (1.6-2.4)
[2022-11-29] MEDS: MAGNESIUM 1 GM/100 ML IVPB 100 ML IV SCH ×3 (06:37→08:12)
[2022-11-29] MEDS: CALCIUM POLYCARBOPHIL 625 MG TABLET PO SCH (08:13)
[2022-11-29] MEDS: POTASSIUM CHLORIDE 10 MEQ TABLET PO SCH (08:13)
[2022-11-29] MEDS: hydrALAZINE 25 MG TABLET PO SCH ×3 (08:13→21:08)
[2022-11-29] MEDS: CLOPIDOGREL 75 MG TABLET PO SCH (08:13)
[2022-11-29] MEDS: PANTOPRAZOLE 40 MG TABLET PO SCH (08:14)
[2022-11-29 08:21] VITALS: BP 171/88
--- NOTE | 2022-11-29 11:06 | Physical Therapy Daily Note ---
PT Daily Note-Current Pain Section J - Health Conditions 1. Rarely or not at all 2. Occasionally 3. Frequently 4. Almost constantly 8. Unable to answer Pain Effect on Sleep: 8 Pain Interference with Therapy: 8 Pain Interference w/Day-to-Day: 8 Mental Status Patient Orientation: Confused Transfers SCALE: Activities may be completed with or without assistive devices. 9-Trjgqwpjnp-oqanyec completes the activity by him/herself with no assistance from a helper. 5-Set-up or Clean-up Assistance-helper sets up or cleans up; patient completes activity. [place] assists only prior to or following the activity. 4-Supervision or Touching Assistance-helper provides verbal cues and/or touching/steadying and/or contact guard assistance as patient completes activity. Assistance may be provided throughout the activity or intermittently. 3-Partial/Moderate Assistance-helper does LESS THAN HALF the effort. [place] lifts, holds or supports trunk or limbs, but provides less than half the effort. 2-Substantial/Maximal Assistance-helper does MORE THAN HALF the effort. [place] lifts or holds trunk or limbs and provides more than half the effort. 1-Pupvvvlpq-rwmuom does ALL the effort. Patient does none of the effort to complete the activity. Or, the assistance of 2 or more helpers is required for the patient to complete the activity. If activity was not attempted, code reason: 7-Patient Refused. 9-Not Applicable-not attempted and the patient did not perform the activity before the current illness, exacerbation or injury. 10-Not Attempted due to Environmental Limitations-(lack of equipment, weather restraints, etc.). 88-Not Attempted due to Medical Conditions or Safety Concerns. Roll Left & Right (QC): 1 (multiple time to cleanse and change bedding due to incontinence of BM) Weight Bearing Right Lower Extremity: Right Full Weight Bearing Left Lower Extremity: Left Full Weight Bearing Exercises Supine Ex: Ankle pumps, Heel Slides, Straight leg raise, Hip abd/add Supine Reps: 10 (PROM with patient resisting with all PROM) Assessment [place] with OT due to patient current LOF/status. Patient did not open her eyes or respond during entire session. Patient is resistive with all mobility and will respond to painful stimuli by wincing. Family present. RN notified of session activity. PT Electromedical Equipment Technician Goals [facility] Goals PT Electromedical Equipment Technician Goals Time Frame: Dec 24, 2022 Roll Left & Right (QC): 4 Sit to Lying (QC): 4 Lying-Sitting on Side/Bed(QC): 4 Sit to Stand (QC): 4 Chair/Tlj-km-Otdgl Xfer(QC): 4 Toilet Transfer (QC): 4 Car Transfer (QC): 4 Does the Patient Walk: Yes Walk 10 feet (QC): 4 Walk 50ft with 2 Turns (QC): 4 Walk 150 ft (QC): 4 Walking 10ft on Uneven Surface: 4 1 Step (curb) (QC): 4 4 Steps (QC): 9 12 Steps (QC): 9 Picking up an Object (QC): 9 Wheel 50 feet with 2 turns (QC: 9 Type: N/A Wheel 150 feet: 9 Type: N/A PT Plan Treatment/Plan Treatment Plan: Continue Plan of Care Treatment Plan: Bed Mobility, Education, Functional Activity [place], Functional Strength, Gait, Safety, Therapeutic Exercise, Transfers Treatment Duration: Dec 24, 2022 Frequency: 6 times per week Estimated Hrs Per Day: .25 hour per day Patient and/or Family Agrees t: Yes Time Time In: 1025 Time Out: 1048 DATE: Nov 29, 2022 Total Billed Treatment Time: 23 Total Billed Treatment 1 visit FA x 2 23 min SANTIAGO LOAIZA PT Nov 29, 2022 11:06
[2022-11-29] MEDS: CEFEPIME INJECTION 2,000 MG in NS (IVPB) 50 ML 50 ML IV SCH (11:44)
[2022-11-29] MEDS: ENOXAPARIN 40 MG/0.4 ML SYRINGE SC SCH (11:44)
[2022-11-29 14:03] VITALS: BP 143/88
--- NOTE | 2022-11-29 14:22 | Occupational Ther Daily Note ---
OT Current Status-Daily Note Subjective Patient did not open her eyes or respond during entire session. Patient is resistive with all mobility and will respond to painful stimuli by wincing. Family present. RN notified of session activity. Mental Status/Objective Patient Orientation: Non-Verbal/Aphasic ADL-Treatment 2 person ADLs for BM incont. Patient PROM performed 10 reps to extremities for large joints of wrist, elbow and shoulder prior to rolling in bed to reduce rigidity and pain with activity. 2 person toileting hygiene performed. Linens replaced. Patient placed on left side to offload Therapy Code Descriptions/Definitions Functional [place] Measure: 0=Not Assessed/NA 4=Minimal Assistance 1=Total Assistance 5=Supervision or Setup 2=Maximal Assistance 6=Modified [place] 3=Moderate Assistance 7=Complete IndependenceSCALE: Activities may be completed with or without assistive devices. 9-Tjieebhqvm-gqfyyqr completes the activity by him/herself with no assistance from a helper. 5-Set-up or Clean-up Assistance-helper sets up or cleans up; patient completes a ctivity. [place] assists only prior to or following the activity. 4-Supervision or Touching Assistance-helper provides verbal cues and/or touching/steadying and/or contact guard assistance as patient completes activity. Assistance may be provided throughout the activity or intermittently. 3-Partial/Moderate Assistance-helper does LESS THAN HALF the effort. [place] lifts, holds or supports trunk or limbs, but provides less than half the effort. 2-Substantial/Maximal Assistance-helper does MORE THAN HALF the effort. [place] lifts or holds trunk or limbs and provides more than half the effort. 4-Lcorortnt-psewlr does ALL the effort. Patient does none of the effort to complete the activity. Or, the assistance of 2 or more helpers is required for the patient to complete the activity. If activity was not attempted, code reason: 7-Patient Refused. 9-Not Applicable-not attempted and the patient did not perform the activity before the current illness, exacerbation or injury. 10-Not Attempted due to Environmental Limitations-(lack of equipment, weather restraints, etc.). 88-Not Attempted due to Medical Conditions or Safety Concerns. Eating (QC): 88 Oral Hygiene (QC): 1 Upper Body Dressing (QC): 1 Lower Body Dressing (QC): 1 On/Off Footwear: 7 (did not perform d/t no standing or OOB activity) Toileting Hygiene (QC): 1 Other Treatment PROM BUE all planes and axis of shoulders, elbow, wrist. 10 reps w/ family present and verbally encouraging patient to work hard. Education OT Patient Education: Disease process, Exercise program, Progress toward Goal/Update tx plan, Purpose of tx/functional activities, Reviewed precautions, Rehab process, Safety issues, Transfer techniques Teaching Recipient: Family Teaching Methods: Demonstration, Discussion Response to Teaching: Reinforcement Needed OT Short Term Goals Short Term Goals Time Frame: Dec 02, 2022 Eatin Oral hygiene: 4 OT Zone Supervisor Firearms Goals Zone Supervisor Firearms Goals Time Frame: Dec 16, 2022 Acute change in mental status: 1 Inattention: 2 Disorganized thinkin Altered level of consciousness: 2 (PER DAUGHTER REPORT) Eating (QC): 5 Oral Hygiene (QC): 4 Toileting Hygiene (QC): 3 Shower/Bathe Self (QC): 3 Upper Body Dressing (QC): 4 Lower Body Dressing (QC): 3 On/Off Footwear (QC): 3 1=Demonstrate adherence to instructed precautions during ADL tasks. 2=Patient will verbalize/demonstrate understanding of assistive devices/modifications for ADL. 3=Patient will improve strength/tolerance for activity to enable patient to perform ADL's. OT Education/Plan Problem List/Assessment Assessment: Decreased Activ Tolerance, Decreased UE Strength, Dependent Transfers, Impaired Bed Mobility, Impaired Cognition, Impaired Coordination, Impaired Funct Balance, Impaired Self-Care Skills, Restricted Funct UE ROM Discharge Recommendations Plan/Recommendations: Continue POC Comment Patient demonstrates a decline. Patient/Family Goals Family is hopeful Patient will improve and go home Treatment Plan/Plan of Care Treatment,Training & Education: Yes Patient would benefit from OT for education, treatment and training to promote independence in ADL's, mobility, safety and/or upper extremity function for ADL's. Plan of Care: ADL Retraining, Caregiver Training, Cognitive Retraining, Concurrent Therapy, Functional Mobility, Group Exercise/Act as Ind, UE Funct Exercise/Act, UE Neuromus Re-Ed/Coord Treatment Duration: Dec 09, 2022 Frequency: At least 5 of 7 days/Wk (IRF) Estimated Hrs Per Day: .25 hour per day Agreement: Yes Rehab Potential: Guarded Time Start Time: 10:25 Stop Time: 10:48 DATE: Nov 29, 2022 Total Time Billed (hr/min): 23 Billed Treatment Time ADL 23 min [place] with PT due to patient current LOF/status. MIK MAHMOOD OT Nov 29, 2022 14:22
[2022-11-29 19:42] VITALS: BP 134/61
[2022-11-29] MEDS: LOSARTAN 100 MG TABLET PO SCH (21:08)
[2022-11-29] MEDS: ASPIRIN enteric coated 81MG TABLET PO SCH (21:08)
[2022-11-29] MEDS: LACTOBACILLUS ACIDOPHILUS (PROBIOTIC) CAPSULE PO SCH (21:08)
[2022-11-29] MEDS: FENOFIBRATE, Micronized 134 MG CAPSULE PO SCH (21:08)
[2022-11-29] MEDS: MAGNESIUM OXIDE 400 MG TABLET PO SCH (21:08)
[2022-11-29] MEDS: THERAPEUTIC MULTIVITAMIN W/MINERALS TABLET PO SCH (21:09)
[2022-11-30 06:42] LABS: POTASSIUM 3.8 MMOL/L (3.6-5.0)
[2022-11-30 06:44] LABS: CALCIUM 9.6 MG/DL (8.5-10.1)
[2022-11-30] MEDS: POTASSIUM CL 10MEQ/50ML IVPB 50 ML IV SCH (06:46)
[2022-11-30] MEDS: POTASSIUM CHLORIDE 20 MEQ TABLET PO SCH (06:46)
[2022-11-30 06:48] LABS: CREATININE SERUM 0.68 MG/DL (0.60-1.30)
[2022-11-30] MEDS: MAGNESIUM 1 GM/100 ML IVPB 100 ML IV SCH (06:51)
[2022-11-30 08:06] VITALS: BP 150/81
[2022-11-30] MEDS ORDERED: POTASSIUM CHLORIDE 20 MEQ TABLET PO ONE (09:00)
[2022-11-30] MEDS: POTASSIUM CHLORIDE 10 MEQ TABLET PO SCH (09:50)
[2022-11-30] MEDS: hydrALAZINE 25 MG TABLET PO SCH ×3 (09:51→21:20)
[2022-11-30] MEDS: CLOPIDOGREL 75 MG TABLET PO SCH (09:51)
[2022-11-30] MEDS: PANTOPRAZOLE 40 MG TABLET PO SCH (09:51)
[2022-11-30] MEDS: CALCIUM POLYCARBOPHIL 625 MG TABLET PO SCH (09:51)
[2022-11-30] MEDS: ENOXAPARIN 40 MG/0.4 ML SYRINGE SC SCH (14:01)
--- NOTE | 2022-11-30 14:31 | Occupational Ther Daily Note ---
OT Current Status-Daily Note Subjective Patient is more verbal today and responds with , "I don't know" to questions. Does not open eyes or assist w/ ROM or mobility ADL-Treatment Therapy Code Descriptions/Definitions Functional [place] Measure: 0=Not Assessed/NA 4=Minimal Assistance 1=Total Assistance 5=Supervision or Setup 2=Maximal Assistance 6=Modified [place] 3=Moderate Assistance 7=Complete IndependenceSCALE: Activities may be completed with or without assistive devices. 3-Brjjghkasj-eiecabg completes the activity by him/herself with no assistance from a helper. 5-Set-up or Clean-up Assistance-helper sets up or cleans up; patient completes activity. [place] assists only prior to or following the activity. 4-Supervision or Touching Assistance-helper provides verbal cues and/or touching/steadying and/or contact guard assistance as patient completes activity. Assistance may be provided throughout the activity or intermittently. 3-Partial/Moderate Assistance-helper does LESS THAN HALF the effort. [place] lifts, holds or supports trunk or limbs, but provides less than half the effort. 2-Substantial/Maximal Assistance-helper does MORE THAN HALF the effort. [place] lifts or holds trunk or limbs and provides more than half the effort. 7-Tnjtzfvpp-rpyutm does ALL the effort. Patient does none of the effort to complete the activity. Or, the assistance of 2 or more helpers is required for the patient to complete the activity. If activity was not attempted, code reason: 7-Patient Refused. 9-Not Applicable-not attempted and the patient did not perform the activity before the current illness, exacerbation or injury. 10-Not Attempted due to Environmental Limitations-(lack of equipment, weather restraints, etc.). 88-Not Attempted due to Medical Conditions or Safety Concerns. Other Treatment BUE PROM with minimal resistance and positioning to reduce edema. Noted nail embedding into left palm, folded linen cloth placed to reduce pressure Education OT Patient Education: Instructions to caregiver, Purpose of tx/functional activities, Reviewed precautions, Rehab process Teaching Recipient: Family Teaching Methods: Demonstration Response to Teaching: Reinforcement Needed OT Short Term Goals Short Term Goals Time Frame: Dec 02, 2022 Eatin Oral hygiene: 4 OT Auto Bumper Straightener Goals Long-Term Goals Time Frame: Dec 16, 2022 Acute change in mental status: 1 Inattention: 2 Disorganized thinkin Altered level of consciousness: 2 (PER DAUGHTER REPORT) Eating (QC): 5 Oral Hygiene (QC): 4 Toileting Hygiene (QC): 3 Shower/Bathe Self (QC): 3 Upper Body Dressing (QC): 4 Lower Body Dressing (QC): 3 On/Off Footwear (QC): 3 1=Demonstrate adherence to instructed precautions during ADL tasks. 2=Patient will verbalize/demonstrate understanding of assistive devices/modific ations for ADL. 3=Patient will improve strength/tolerance for activity to enable patient to perform ADL's. OT Education/Plan Problem List/Assessment Assessment: Decreased Activ Tolerance, Decreased Safety Aware, Decreased UE Strength, Dependent Transfers, Edema, Impaired Bed Mobility, Impaired Cognition, Impaired Coordination, Impaired Funct Balance, Impaired Self-Care Skills, Restricted Funct UE ROM Discharge Recommendations Plan/Recommendations: Continue POC Treatment Plan/Plan of Care Treatment,Training & Education: Yes Patient would benefit from OT for education, treatment and training to promote independence in ADL's, mobility, safety and/or upper extremity function for ADL's. Plan of Care: ADL Retraining, Caregiver Training, Cognitive Retraining, Concurrent Therapy, Functional Mobility, Group Exercise/Act as Ind, UE Funct Exercise/Act, UE Neuromus Re-Ed/Coord Treatment Duration: Dec 09, 2022 Frequency: At least 5 of 7 days/Wk (IRF) Estimated Hrs Per Day: .25 hour per day Agreement: Yes Rehab Potential: Guarded Time Start Time: 14:14 Stop Time: 14:30 DATE: Nov 30, 2022 Total Time Billed (hr/min): 16 Billed Treatment Time EX 16 min MIK MAHMOOD OT Nov 30, 2022 14:31
--- NOTE | 2022-11-30 16:10 | Physical Therapy Daily Note ---
PT Daily Note-Current Subjective Patient lying supine in bed upon PT arrival, family member sitting in chair. Family member gives approval for treatment, patient does not respond to questions. Pain Section J - Health Conditions 1. Rarely or not at all 2. Occasionally 3. Frequently 4. Almost constantly 8. Unable to answer Pain Effect on Sleep: 8 Pain Interference with Therapy: 8 Pain Interference w/Day-to-Day: 8 Transfers SCALE: Activities may be completed with or without assistive devices. 5-Lbfddcgaaw-xlehcza completes the activity by him/herself with no assistance from a helper. 5-Set-up or Clean-up Assistance-helper sets up or cleans up; patient completes activity. [place] assists only prior to or following the activity. 4-Supervision or Touching Assistance-helper provides verbal cues and/or touching/steadying and/or contact guard assistance as patient completes activity. Assistance may be provided throughout the activity or intermittently. 3-Partial/Moderate Assistance-helper does LESS THAN HALF the effort. [place] lifts, holds or supports trunk or limbs, but provides less than half the effort. 2-Substantial/Maximal Assistance-helper does MORE THAN HALF the effort. [place] lifts or holds trunk or limbs and provides more than half the effort. 7-Gpmlpxmvl-szyikx does ALL the effort. Patient does none of the effort to complete the activity. Or, the assistance of 2 or more helpers is required for the patient to complete the activity. If activity was not attempted, code reason: 7-Patient Refused. 9-Not Applicable-not attempted and the patient did not perform the activity before the current illness, exacerbation or injury. 10-Not Attempted due to Environmental Limitations-(lack of equipment, weather restraints, etc.). 88-Not Attempted due to Medical Conditions or Safety Concerns. Roll Left & Right (QC): 1 Sit to Lying (QC): 1 Lying to Sitting/Side of Bed(Q: 1 Weight Bearing Right Lower Extremity: Right Full Weight Bearing Left Lower Extremity: Left Full Weight Bearing Exercises Supine Ex: Ankle pumps, Heel Slides, Straight leg raise, Hip abd/add Assessment Current Status: Regressing Performed bed mobility and transfers with total A and no effort by patient. Jessie ent only responds to LE therapeutic exercise with painful moan. Patient does not respond to verbal stimuli. Patient does not participate in LE exercises, however maybe resisting exercises or is just tight. Patient in bed post treatment with all needs met, call light in reach and daughter in the room. PT Hydro Generation Manager Goals Hydro Generation Manager Goals PT Care Home Goals Time Frame: Dec 24, 2022 Roll Left & Right (QC): 4 Sit to Lying (QC): 4 Lying-Sitting on Side/Bed(QC): 4 Sit to Stand (QC): 4 Chair/Yhk-wq-Hliwu Xfer(QC): 4 Toilet Transfer (QC): 4 Car Transfer (QC): 4 Does the Patient Walk: Yes Walk 10 feet (QC): 4 Walk 50ft with 2 Turns (QC): 4 Walk 150 ft (QC): 4 Walking 10ft on Uneven Surface: 4 1 Step (curb) (QC): 4 4 Steps (QC): 9 12 Steps (QC): 9 Picking up an Object (QC): 9 Wheel 50 feet with 2 turns (QC: 9 Type: N/A Wheel 150 feet: 9 Type: N/A PT Plan Treatment/Plan Treatment Plan: Continue Plan of Care Treatment Plan: Bed Mobility, Education, Functional Activity [place], Functional Strength, Gait, Safety, Therapeutic Exercise, Transfers Treatment Duration: Dec 24, 2022 Frequency: 6 times per week Estimated Hrs Per Day: .25 hour per day Patient and/or Family Agrees t: Yes Safety Risks/Education Patient Education: Transfer Techniques Teaching Recipient: Patient, Family Teaching Methods: Demonstration, Discussion Response to Teaching: Reinforcement Needed Time Time In: 1459 Time Out: 1509 DATE: Nov 30, 2022 Total Billed Treatment Time: 10 Total Billed Treatment Visit, VIVIENNE AWAD PT Nov 30, 2022 16:10
--- NOTE | 2022-11-30 16:58 | Progress Note - Hospitalist ---
Subjective HPI/CC On Admission Date Seen by Provider: Nov 30, 2022 Time Seen by Provider: 10:00 Subjective/Events-last exam She is more awake today. She speaks a couple sentences. She denies pain. Her daughter is present and all questions and concerns are addressed. Objective Exam Vital Signs Vital Signs Date Time Temp Pulse Resp B/P (MAP) Pulse Ox O2 Delivery O2 Flow Rate FiO2 11/30/22 09:40 Nasal Cannula 2.00 11/30/22 08:06 36.8 87 12 150/81 (104) 93 Capillary Refill : General Appearance: No Apparent Distress, Chronically ill Respiratory: Lungs Clear, No Respiratory Distress Cardiovascular: Regular Rate, Rhythm, No Murmur Gastrointestinal: Normal Bowel Sounds, Soft Extremity: Normal Inspection, No Pedal Edema Neurologic/Psychiatric: Alert, Motor Weakness Results/Procedures Lab Laboratory Tests 11/30/22 06:25 Patient resulted labs reviewed. Imaging: Reviewed Imaging Report Assessment/Plan Assessment and Plan Assess & Plan/Chief Complaint COVID Chronic respiratory failure with hypoxia Only on her baseline nocturnal oxygen- no indication for decadron s/p paxlovid MAT protocol PT/OT Delirium Likely dementia Lab workup unremarkabls Concern for progression of dementia with COVID Delirium slightly improved today Debility PT/OT HTN HLD GERD CAD Continue home meds DVT ppx: Lovenox Pyelonephritis, resolved EDITH, resolved Constipation, resolved Diagnosis/Problems Diagnosis/Problems (1) Pyelonephritis Status: Resolved Resolution Date/Time: 11/30/22 @ 16:58 (2) Delirium Status: Acute (3) Metabolic encephalopathy Status: Acute (4) COVID-19 Status: Acute (5) Advanced age Status: Chronic (6) Poor prognosis Status: Acute (7) EDITH (acute kidney injury) Status: Resolved Resolution Date/Time: 11/30/22 @ 16:58 GREER MILLAN MD Nov 30, 2022 16:58
[2022-11-30 19:26] VITALS: BP 114/61
[2022-11-30] MEDS: ASPIRIN enteric coated 81MG TABLET PO SCH (21:19)
[2022-11-30] MEDS: LOSARTAN 100 MG TABLET PO SCH (21:20)
[2022-11-30] MEDS: LACTOBACILLUS ACIDOPHILUS (PROBIOTIC) CAPSULE PO SCH (21:20)
[2022-11-30] MEDS: THERAPEUTIC MULTIVITAMIN W/MINERALS TABLET PO SCH (21:20)
[2022-11-30] MEDS: MAGNESIUM OXIDE 400 MG TABLET PO SCH (21:20)
[2022-11-30] MEDS: FENOFIBRATE, Micronized 134 MG CAPSULE PO SCH (21:20)
[2022-12-01 05:55] LABS: CALCIUM 9.7 MG/DL (8.5-10.1); CREATININE SERUM 0.67 MG/DL (0.60-1.30); POTASSIUM 4.2 MMOL/L (3.6-5.0)
[2022-12-01] MEDS: POTASSIUM CHLORIDE 20 MEQ TABLET PO SCH (05:56)
[2022-12-01] MEDS: POTASSIUM CL 10MEQ/50ML IVPB 50 ML IV SCH (05:56)
[2022-12-01] MEDS: MAGNESIUM 1 GM/100 ML IVPB 100 ML IV SCH (05:56)
[2022-12-01] MEDS: POTASSIUM CHLORIDE 10 MEQ TABLET PO SCH (08:12)
[2022-12-01] MEDS: hydrALAZINE 25 MG TABLET PO SCH ×3 (08:12→21:00)
[2022-12-01] MEDS: PANTOPRAZOLE 40 MG TABLET PO SCH (08:12)
[2022-12-01] MEDS: CLOPIDOGREL 75 MG TABLET PO SCH (08:12)
[2022-12-01] MEDS: CALCIUM POLYCARBOPHIL 625 MG TABLET PO SCH (08:12)
[2022-12-01 08:25] VITALS: BP 161/71
--- NOTE | 2022-12-01 11:40 | Occupational Ther Daily Note ---
OT Current Status-Daily Note Subjective More alrt than yesterday. Opens eyes briefly, responds with 3 word phrases Mental Status/Objective Attachments: Fatima Catheter Last Day for isolation ADL-Treatment Sat edge of bed 12 minutes for grooming care with shampoo cap and comb, requires minimal intermittent assistance to sustain static siting balance, dependent bed mobility.Cloth placed n left hand to reduce nail pressure. Family agrees to continue combing through hair Therapy Code Descriptions/Definitions Functional [place] Measure: 0=Not Assessed/NA 4=Minimal Assistance 1=Total Assistance 5=Supervision or Setup 2=Maximal Assistance 6=Modified [place] 3=Moderate Assistance 7=Complete IndependenceSCALE: Activities may be completed with or without assistive devices. 3-Tjzgcjgekd-msnbguz completes the activity by him/herself with no assistance from a helper. 5-Set-up or Clean-up Assistance-helper sets up or cleans up; patient completes activity. [place] assists only prior to or following the activity. 4-Supervision or Touching Assistance-helper provides verbal cues and/or touching/steadying and/or contact guard assistance as patient completes activity. Assistance may be provided throughout the activity or intermittently. 3-Partial/Moderate Assistance-helper does LESS THAN HALF the effort. [place] lifts, holds or supports trunk or limbs, but provides less than half the effort. 2-Substantial/Maximal Assistance-helper does MORE THAN HALF the effort. [place] lifts or holds trunk or limbs and provides more than half the effort. 5-Dwkfuphrc-tvhvha does ALL the effort. Patient does none of the effort to complete the activity. Or, the assistance of 2 or more helpers is required for the patient to complete the activity. If activity was not attempted, code reason: 7-Patient Refused. 9-Not Applicable-not attempted and the patient did not perform the activity before the current illness, exacerbation or injury. 10-Not Attempted due to Environmental Limitations-(lack of equipment, weather restraints, etc.). 88-Not Attempted due to Medical Conditions or Safety Concerns. Eating (QC): 1 (family feeding patient) Oral Hygiene (QC): 1 2 person transfers, patent is dependent in standing Education OT Patient Education: Correct positioning, Instructions to caregiver, Modified ADL techniques, Progress toward Goal/Update tx plan, Purpose of tx/functional activities, Reviewed precautions, Rehab process, Transfer techniques Teaching Recipient: Patient Teaching Methods: Demonstration, Discussion Response to Teaching: Reinforcement Needed OT Short Term Goals Short Term Goals Time Frame: Dec 02, 2022 Eatin Oral hygiene: 4 OT Successfactors Consultant Goals Successfactors Consultant Goals Time Frame: Dec 16, 2022 Acute change in mental status: 1 Inattention: 2 Disorganized thinkin Altered level of consciousness: 2 (PER DAUGHTER REPORT) Eating (QC): 5 Oral Hygiene (QC): 4 Toileting Hygiene (QC): 3 Shower/Bathe Self (QC): 3 Upper Body Dressing (QC): 4 Lower Body Dressing (QC): 3 On/Off Footwear (QC): 3 1=Demonstrate adherence to instructed precautions during ADL tasks. 2=Patient will verbalize/demonstrate understanding of assistive devices/modifications for ADL. 3=Patient will improve strength/tolerance for activity to enable patient to perform ADL's. OT Education/Plan Problem List/Assessment Assessment: Decreased Activ Tolerance, Decreased Safety Aware, Decreased UE Strength, Dependent Transfers, Impaired Bed Mobility, Impaired Cognition, Impaired Coordination, Impaired Funct Balance, Impaired I ADL's, Impaired Self- Care Skills, Restricted Funct UE ROM, Visual-Perceptual Deficit Discharge Recommendations Plan/Recommendations: Continue POC Therapy Discharge Recommendati: Post Acute OT Treatment Plan/Plan of Care Treatment,Training & Education: Yes Patient would benefit from OT for education, treatment and training to promote independence in ADL's, mobility, safety and/or upper extremity function for ADL's. Plan of Care: ADL Retraining, Caregiver Training, Cognitive Retraining, Concurrent Therapy, Functional Mobility, Group Exercise/Act as Ind, UE Funct Exercise/Act, UE Neuromus Re-Ed/Coord Treatment Duration: Dec 09, 2022 Frequency: At least 5 of 7 days/Wk (IRF) Estimated Hrs Per Day: .25 hour per day Agreement: Yes Rehab Potential: Guarded all needs met Time Start Time: 11:00 Stop Time: 11:15 DATE: Dec 01, 2022 Total Time Billed (hr/min): 15 Billed Treatment Time ADL 15 min CO--TX required d/t 2 person bed mobility, transfers and patient debility. MIK MAHMOOD OT Dec 01, 2022 11:40
--- NOTE | 2022-12-01 11:45 | Physical Therapy Daily Note ---
PT Daily Note-Current Subjective Patient is slightly more verbal on this date, however, will not open eyes. Pain Section J - Health Conditions 1. Rarely or not at all 2. Occasionally 3. Frequently 4. Almost constantly 8. Unable to answer Pain Effect on Sleep: 8 Pain Interference with Therapy: 8 Pain Interference w/Day-to-Day: 8 Transfers SCALE: Activities may be completed with or without assistive devices. 8-Ishhrtdvco-rqfbuju completes the activity by him/herself with no assistance from a helper. 5-Set-up or Clean-up Assistance-helper sets up or cleans up; patient completes activity. [place] assists only prior to or following the activity. 4-Supervision or Touching Assistance-helper provides verbal cues and/or touching/steadying and/or contact guard assistance as patient completes activity. Assistance may be provided throughout the activity or intermittently. 3-Partial/Moderate Assistance-helper does LESS THAN HALF the effort. [place] lifts, holds or supports trunk or limbs, but provides less than half the effort. 2-Substantial/Maximal Assistance-helper does MORE THAN HALF the effort. [place] lifts or holds trunk or limbs and provides more than half the effort. 5-Amalrpwzo-gnpjio does ALL the effort. Patient does none of the effort to complete the activity. Or, the assistance of 2 or more helpers is required for the patient to complete the activity. If activity was not attempted, code reason: 7-Patient Refused. 9-Not Applicable-not attempted and the patient did not perform the activity before the current illness, exacerbation or injury. 10-Not Attempted due to Environmental Limitations-(lack of equipment, weather restraints, etc.). 88-Not Attempted due to Medical Conditions or Safety Concerns. Sit to Lying (QC): 1 (x2) Lying to Sitting/Side of Bed(Q: 1 (x2) Weight Bearing Right Lower Extremity: Right Full Weight Bearing Left Lower Extremity: Left Full Weight Bearing Assessment PT address static balance as Patient sat EOB for several minuted while OT addressed ADL's with dependent hair combing. Patient unable to actively participate with therapy. PT Care Transition Mgr Goals Mcc Goals PT Mcc Goals Time Frame: Dec 24, 2022 Roll Left & Right (QC): 4 Sit to Lying (QC): 4 Lying-Sitting on Side/Bed(QC): 4 Sit to Stand (QC): 4 Chair/Zpc-qj-Pzzqo Xfer(QC): 4 Toilet Transfer (QC): 4 Car Transfer (QC): 4 Does the Patient Walk: Yes Walk 10 feet (QC): 4 Walk 50ft with 2 Turns (QC): 4 Walk 150 ft (QC): 4 Walking 10ft on Uneven Surface: 4 1 Step (curb) (QC): 4 4 Steps (QC): 9 12 Steps (QC): 9 Picking up an Object (QC): 9 Wheel 50 feet with 2 turns (QC: 9 Type: N/A Wheel 150 feet: 9 Type: N/A PT Plan Treatment/Plan Treatment Plan: Continue Plan of Care Treatment Plan: Bed Mobility, Education, Functional Activity [place], Functional Strength, Gait, Safety, Therapeutic Exercise, Transfers Treatment Duration: Dec 24, 2022 Frequency: 6 times per week Estimated Hrs Per Day: .25 hour per day Patient and/or Family Agrees t: Yes Time Time In: 1100 Time Out: 1118 DATE: Dec 01, 2022 Total Billed Treatment Time: 18 Total Billed Treatment 1 visit FA 18 min SANTIAGO LOAIZA PT Dec 01, 2022 11:45
[2022-12-01] MEDS: ENOXAPARIN 40 MG/0.4 ML SYRINGE SC SCH (12:37)
[2022-12-01] MEDS: ACETAMINOPHEN 325 MG TABLET PO PRN (16:41)
[2022-12-01 20:00] VITALS: BP 151/76
[2022-12-01] MEDS: THERAPEUTIC MULTIVITAMIN W/MINERALS TABLET PO SCH (20:59)
[2022-12-01] MEDS: LOSARTAN 100 MG TABLET PO SCH (20:59)
[2022-12-01] MEDS: LACTOBACILLUS ACIDOPHILUS (PROBIOTIC) CAPSULE PO SCH (20:59)
[2022-12-01] MEDS: FENOFIBRATE, Micronized 134 MG CAPSULE PO SCH (20:59)
[2022-12-01] MEDS: ASPIRIN enteric coated 81MG TABLET PO SCH (20:59)
[2022-12-01] MEDS: MAGNESIUM OXIDE 400 MG TABLET PO SCH (21:00)
[2022-12-02 06:53] LABS: CALCIUM 9.9 MG/DL (8.5-10.1); CREATININE SERUM 0.61 MG/DL (0.60-1.30); MAGNESIUM 1.8 MG/DL (1.6-2.4); POTASSIUM 4.1 MMOL/L (3.6-5.0)
[2022-12-02] MEDS: POTASSIUM CHLORIDE 20 MEQ TABLET PO SCH (07:00)
[2022-12-02] MEDS: MAGNESIUM 1 GM/100 ML IVPB 100 ML IV SCH ×3 (07:00→07:16)
[2022-12-02] MEDS: POTASSIUM CL 10MEQ/50ML IVPB 50 ML IV SCH (07:00)
[2022-12-02] MEDS ORDERED: MAGNESIUM 1 GM/100 ML IVPB 100 ML IV ONE (07:09)
[2022-12-02 07:54] VITALS: BP 151/76
[2022-12-02 08:42] VITALS: BP 161/84
[2022-12-02] MEDS: POTASSIUM CHLORIDE 10 MEQ TABLET PO SCH (08:48)
[2022-12-02] MEDS: PANTOPRAZOLE 40 MG TABLET PO SCH (08:48)
[2022-12-02] MEDS: hydrALAZINE 25 MG TABLET PO SCH ×3 (08:48→20:58)
[2022-12-02] MEDS: CALCIUM POLYCARBOPHIL 625 MG TABLET PO SCH (08:48)
[2022-12-02] MEDS: CLOPIDOGREL 75 MG TABLET PO SCH (08:48)
[2022-12-02] MEDS: ACETAMINOPHEN 325 MG TABLET PO PRN ×3 (10:31→23:47)
--- NOTE | 2022-12-02 10:34 | Physical Therapy Daily Note ---
PT Daily Note-Current Subjective Patient continues to not open her eyes but is more verbal. Pain Section J - Health Conditions 1. Rarely or not at all 2. Occasionally 3. Frequently 4. Almost constantly 8. Unable to answer Pain Effect on Sleep: 8 Pain Interference with Therapy: 8 Pain Interference w/Day-to-Day: 8 Transfers SCALE: Activities may be completed with or without assistive devices. 8-Oxtjwsjsgi-mhkkxob completes the activity by him/herself with no assistance from a helper. 5-Set-up or Clean-up Assistance-helper sets up or cleans up; patient completes activity. [place] assists only prior to or following the activity. 4-Supervision or Touching Assistance-helper provides verbal cues and/or touching/steadying and/or contact guard assistance as patient completes activity. Assistance may be provided throughout the activity or intermittently. 3-Partial/Moderate Assistance-helper does LESS THAN HALF the effort. [place] lifts, holds or supports trunk or limbs, but provides less than half the effort. 2-Substantial/Maximal Assistance-helper does MORE THAN HALF the effort. [place] lifts or holds trunk or limbs and provides more than half the effort. 8-Buhxogqms-jeqiep does ALL the effort. Patient does none of the effort to com plete the activity. Or, the assistance of 2 or more helpers is required for the patient to complete the activity. If activity was not attempted, code reason: 7-Patient Refused. 9-Not Applicable-not attempted and the patient did not perform the activity before the current illness, exacerbation or injury. 10-Not Attempted due to Environmental Limitations-(lack of equipment, weather restraints, etc.). 88-Not Attempted due to Medical Conditions or Safety Concerns. Roll Left & Right (QC): 1 (x 2) Sit to Lying (QC): 1 (x 2) Lying to Sitting/Side of Bed(Q: 1 (x 2) patient requires dependent assist with all mobility and to maintain sitting EOB while OT addressed grooming. Weight Bearing Right Lower Extremity: Right Full Weight Bearing Left Lower Extremity: Left Full Weight Bearing Exercises Supine Ex: Ankle pumps (PROM), Heel Slides (PROM) Assessment Patient continues to require dependent assist for all mobility and to maintain sitting EOB due to Poor balance. Patient continues to not open her eyes but is responding verbally. PT Heating Engineer Goals Usp Goals PT Usp Goals Time Frame: Dec 24, 2022 Roll Left & Right (QC): 4 Sit to Lying (QC): 4 Lying-Sitting on Side/Bed(QC): 4 Sit to Stand (QC): 4 Chair/Xqs-os-Wnadz Xfer(QC): 4 Toilet Transfer (QC): 4 Car Transfer (QC): 4 Does the Patient Walk: Yes Walk 10 feet (QC): 4 Walk 50ft with 2 Turns (QC): 4 Walk 150 ft (QC): 4 Walking 10ft on Uneven Surface: 4 1 Step (curb) (QC): 4 4 Steps (QC): 9 12 Steps (QC): 9 Picking up an Object (QC): 9 Wheel 50 feet with 2 turns (QC: 9 Type: N/A Wheel 150 feet: 9 Type: N/A PT Plan Treatment/Plan Treatment Plan: Continue Plan of Care Treatment Plan: Bed Mobility, Education, Functional Activity [place], Functional Strength, Gait, Safety, Therapeutic Exercise, Transfers Treatment Duration: Dec 24, 2022 Frequency: 6 times per week Estimated Hrs Per Day: .25 hour per day Patient and/or Family Agrees t: Yes Time Time In: 935 Time Out: 958 DATE: Dec 02, 2022 Total Billed Treatment Time: 23 Total Billed Treatment 1 visit EX x 2 23 min SANTIAGO LOAIZA PT Dec 02, 2022 10:34
[2022-12-02 12:24] VITALS: BP 145/76
--- NOTE | 2022-12-02 12:59 | Diagnostic Imaging Report ---
INDICATION: Altered mental status. TECHNIQUE: Multiple contiguous axial images were obtained through the brain without the use of intravenous contrast. Auto Exposure Controls were utilized during the CT exam to meet ALARA standards for radiation dose reduction. COMPARISON: Comparison made with 10/16/2019. FINDINGS: There are diffuse atrophic changes. There are patchy low-density changes in the deep white matter, compatible with chronic ischemic change. There is no acute hemorrhage or subdural or epidural collection. There is no overt focal parenchymal abnormality in the brain. Calvarial windows are normal. IMPRESSION: Atrophic changes and chronic ischemic changes in deep white matter. No acute intracranial abnormality. Dictated by: Dictated on workstation # [id number]
--- NOTE | 2022-12-02 13:01 | Occupational Ther Daily Note ---
OT Current Status-Daily Note Subjective Patient is less verbal than yesterday, opens eyes intermittently. Mental Status/Objective Patient Orientation: Person Patietn does not respond to question of orientation or number of born children or name adult child in room ADL-Treatment Patietn is rigid in all joints. OT/PT progressed w/. positioned patient EOB for sitting. Patient is dependent w. all bed mobility, minimally sits EOB unsupported, increased tone throughout mm. Static stretching performed to 4 extremities and neck by both therapist to ensure safety with patient sitting. BM occurred durintg session. Therapist positioned patient sidelying for BM hygiene. Once completed patient positioned right side w/ pillows offloading avani prominences. Therapy Code Descriptions/Definitions Functional [place] Measure: 0=Not Assessed/NA 4=Minimal Assistance 1=Total Assistance 5=Supervision or Setup 2=Maximal Assistance 6=Modified [place] 3=Moderate Assistance 7=Complete IndependenceSCALE: Activities may be completed with or without assistive devices. 6-Ifskxgijkw-eoladnz completes the activity by him/herself with no assistance from a helper. 5-Set-up or Clean-up Assistance-helper sets up or cleans up; patient completes activity. [place] assists only prior to or following the activity. 4-Supervision or Touching Assistance-helper provides verbal cues and/or touching/steadying and/or contact guard assistance as patient completes activity. Assistance may be provided throughout the activity or intermittently. 3-Partial/Moderate Assistance-helper does LESS THAN HALF the effort. [place] lifts, holds or supports trunk or limbs, but provides less than half the effort. 2-Substantial/Maximal Assistance-helper does MORE THAN HALF the effort. [place] lifts or holds trunk or limbs and provides more than half the effort. 1-Ocpskupqf-yhzohj does ALL the effort. Patient does none of the effort to complete the activity. Or, the assistance of 2 or more helpers is required for the patient to complete the activity. If activity was not attempted, code reason: 7-Patient Refused. 9-Not Applicable-not attempted and the patient did not perform the activity before the current illness, exacerbation or injury. 10-Not Attempted due to Environmental Limitations-(lack of equipment, weather restraints, etc.). 88-Not Attempted due to Medical Conditions or Safety Concerns. Toileting Hygiene (QC): 1 Family instruction provided for patient eating position to reduce aspiration Other Treatment Static stretch of cervical, thoracic and lumbar mm through rotation and flexion/extension positions. BUE shoulder/elbow and hand stretched Education OT Patient Education: Correct positioning, Exercise program, Modified ADL techniques, Progress toward Goal/Update tx plan, Purpose of tx/functional activities, Reviewed precautions, Rehab process, Safety issues Teaching Recipient: Patient, Family Teaching Methods: Discussion Response to Teaching: Reinforcement Needed OT Short Term Goals Short Term Goals Time Frame: Dec 02, 2022 Eatin Oral hygiene: 4 OT [facility] Goals Plow Shaker Goals Time Frame: Dec 16, 2022 Eating (QC): 5 Oral Hygiene (QC): 4 Toileting Hygiene (QC): 3 Shower/Bathe Self (QC): 3 Upper Body Dressing (QC): 4 Lower Body Dressing (QC): 3 On/Off Footwear (QC): 3 1=Demonstrate adherence to instructed precautions during ADL tasks. 2=Patient will verbalize/demonstrate understanding of assistive devices/modifications for ADL. 3=Patient will improve strength/tolerance for activity to enable patient to perform ADL's. OT Education/Plan Problem List/Assessment Assessment: Decreased Activ Tolerance, Decreased Safety Aware, Decreased UE Strength, Dependent Transfers, Impaired Bed Mobility, Impaired Cognition, Impaired Coordination, Impaired Funct Balance, Impaired Self-Care Skills, Restricted Funct UE ROM Discharge Recommendations Plan/Recommendations: Continue POC Treatment Plan/Plan of Care Treatment,Training & Education: Yes Patient would benefit from OT for education, treatment and training to promote independence in ADL's, mobility, safety and/or upper extremity function for ADL's. Plan of Care: ADL Retraining, Caregiver Training, Cognitive Retraining, Concurrent Therapy, Functional Mobility, Group Exercise/Act as Ind, UE Funct Exercise/Act, UE Neuromus Re-Ed/Coord Treatment Duration: Dec 09, 2022 Frequency: At least 5 of 7 days/Wk (IRF) Estimated Hrs Per Day: .25 hour per day Agreement: Yes Rehab Potential: Guarded Time Start Time: 09:35 Stop Time: 09:58 DATE: Dec 02, 2022 Total Time Billed (hr/min): 23 Billed Treatment Time ADL 23 CO-TX d/t patient medical status MIK MAHMOOD OT Dec 02, 2022 13:01
[2022-12-02] MEDS: ENOXAPARIN 40 MG/0.4 ML SYRINGE SC SCH (13:16)
--- NOTE | 2022-12-02 15:37 | Diagnostic Imaging Report ---
INDICATION: Fever. TIME OF EXAM: 12:23 p.m. COMPARISON: Correlation is made with prior chest from 11/22/2022. FINDINGS: The heart is enlarged but stable. No significant infiltrate is detected. There may be some trace pleural fluid or pleural thickening in the left base. No pneumothorax is identified. IMPRESSION: Minimal left pleural fluid or pleural thickening. Dictated by: Dictated on workstation # [id number]
[2022-12-02 15:55] LABS: CLARITY,URINE SLIGHTLY CLOUDY; COLOR,URINE YELLOW; GLUCOSE, URINE (UA) NEGATIVE (NEGATIVE); PH,URINE 5.5 (5-9); PROTEIN,URINE 1+ (NEGATIVE)
[2022-12-02 15:56] LABS: BACTERIA,URINE NEGATIVE /HPF; BILIRUBIN,URINE NEGATIVE (NEGATIVE); KETONES,URINE NEGATIVE (NEGATIVE); LEUKOCYTE ESTERASE ,URINE TRACE (NEGATIVE); NITRITE,URINE NEGATIVE (NEGATIVE); RBC,URINE 0-2 /HPF; SQUAMOUS EPITHELIAL CELL,UR RARE /HPF
--- NOTE | 2022-12-02 18:30 | Progress Note - Hospitalist ---
Subjective HPI/CC On Admission Date Seen by Provider: Dec 02, 2022 Time Seen by Provider: 11:30 Subjective/Events-last exam She is awake. She is responding to questions appropriately. She denies pain. Focused Exam Lactate Level 12/02/22 13:42: Lactic Acid Level 1.45 Objective Exam Vital Signs Vital Signs Date Time Temp Pulse Resp B/P (MAP) Pulse Ox O2 Delivery O2 Flow Rate FiO2 12/02/22 12:24 36.3 93 20 145/76 (99) 95 Room Air 12/02/22 07:54 21 12/02/22 07:49 0.00 Capillary Refill : General Appearance: No Apparent Distress, Chronically ill Respiratory: No Respiratory Distress, Decreased Breath Sounds Cardiovascular: Regular Rate, Rhythm, No Murmur Gastrointestinal: Normal Bowel Sounds, Soft Extremity: Non Tender, Pedal Edema, Other (left upper extremity contracture) Neurologic/Psychiatric: Alert, Motor Weakness Results/Procedures Lab Laboratory Tests 12/02/22 06:00 Patient resulted labs reviewed. Imaging: Reviewed Imaging Report Assessment/Plan Assessment and Plan Assess & Plan/Chief Complaint Chronic respiratory failure with hypoxia Supplemental oxygen as needed MAT protocol Repeat chest xray with mild left pleural effusion/thickening Delirium Likely dementia Lab workup unremarkable CT head with chronic atrophic changes Concern for progression of dementia with COVID Delirium improving Repeat UA negative Debility PT/OT HTN HLD GERD CAD Continue home meds DVT ppx: Lovenox Pyelonephritis, resolved EDITH, resolved Constipation, resolved COVID, resolved Diagnosis/Problems Diagnosis/Problems (1) Pyelonephritis Status: Resolved Resolution Date/Time: 11/30/22 @ 16:58 (2) Delirium Status: Acute (3) Metabolic encephalopathy Status: Acute (4) COVID-19 Status: Acute (5) Advanced age Status: Chronic (6) Poor prognosis Status: Acute (7) EDITH (acute kidney injury) Status: Resolved Resolution Date/Time: 11/30/22 @ 16:58 GREER MILLAN MD Dec 02, 2022 18:30
[2022-12-02 20:33] VITALS: BP 125/60
[2022-12-02] MEDS: THERAPEUTIC MULTIVITAMIN W/MINERALS TABLET PO SCH (20:58)
[2022-12-02] MEDS: LACTOBACILLUS ACIDOPHILUS (PROBIOTIC) CAPSULE PO SCH (20:58)
[2022-12-02] MEDS: ASPIRIN enteric coated 81MG TABLET PO SCH (20:58)
[2022-12-02] MEDS: LOSARTAN 100 MG TABLET PO SCH (20:58)
[2022-12-02] MEDS: FENOFIBRATE, Micronized 134 MG CAPSULE PO SCH (20:58)
[2022-12-02] MEDS: MAGNESIUM OXIDE 400 MG TABLET PO SCH (20:58)
[2022-12-03 05:51] LABS: BASOPHILS % (AUTO) 1 % (0-10); EOSINOPHILS # (AUTO) 0.1 10^3/uL (0.0-0.3); EOSINOPHILS % (AUTO) 1 % (0-10); HEMATOCRIT 31 % (35-52); HEMOGLOBIN 9.9 g/dL (11.5-16.0); LYMPHOCYTES # (AUTO) 1.4 10^3/uL (1.0-4.0); LYMPHOCYTES % (AUTO) 18 % (12-44); MEAN CORPUSCULAR HEMOGLOBIN 29 pg (25-34); MEAN CORPUSCULAR HGB CONC 32 g/dL (32-36); MEAN CORPUSCULAR VOLUME 91 fL (80-99); MEAN PLATELET VOLUME 10.4 fL (9.0-12.2); MONOCYTES # (AUTO) 0.9 10^3/uL (0.0-1.0); MONOCYTES % (AUTO) 12 % (0-12); NEUTROPHILS # (AUTO) 5.2 10^3/uL (1.8-7.8); NEUTROPHILS % (AUTO) 68 % (42-75); PLATELET COUNT 359 10^3/uL (130-400); WHITE BLOOD COUNT 7.7 10^3/uL (4.3-11.0)
[2022-12-03 06:11] LABS: CALCIUM 9.7 MG/DL (8.5-10.1); CREATININE SERUM 0.6 MG/DL (0.60-1.30); POTASSIUM 3.8 MMOL/L (3.6-5.0)
[2022-12-03] MEDS: POTASSIUM CL 10MEQ/50ML IVPB 50 ML IV SCH (06:21)
[2022-12-03] MEDS: POTASSIUM CHLORIDE 20 MEQ TABLET PO SCH (06:21)
[2022-12-03] MEDS: MAGNESIUM 1 GM/100 ML IVPB 100 ML IV SCH (06:21)
[2022-12-03 08:17] VITALS: BP 161/72
[2022-12-03] MEDS: POTASSIUM CHLORIDE 10 MEQ TABLET PO SCH (08:33)
[2022-12-03] MEDS: CALCIUM POLYCARBOPHIL 625 MG TABLET PO SCH (08:33)
[2022-12-03] MEDS: PANTOPRAZOLE 40 MG TABLET PO SCH (08:33)
[2022-12-03] MEDS: CLOPIDOGREL 75 MG TABLET PO SCH (08:33)
[2022-12-03] MEDS: hydrALAZINE 25 MG TABLET PO SCH ×3 (08:34→20:31)
[2022-12-03] MEDS ORDERED: POTASSIUM CHLORIDE 20 MEQ TABLET PO ONE (09:00)
--- NOTE | 2022-12-03 11:28 | Physical Therapy Daily Note ---
PT Daily Note-Current Subjective Pt is in bed on arrival. Pt is not responding to verbal or tactile commands on arrival, but family is present and notes that she is having difficulty communicating. Able to communicate with single word responses ~5 minutes into ROM. Pain Section J - Health Conditions 1. Rarely or not at all 2. Occasionally 3. Frequently 4. Almost constantly 8. Unable to answer Pain Effect on Sleep: 8 Pain Interference with Therapy: 8 Pain Interference w/Day-to-Day: 8 Mental Status Attachments: Oxygen, IV Transfers SCALE: Activities may be completed with or without assistive devices. 4-Udajfuzkpg-pocakie completes the activity by him/herself with no assistance from a helper. 5-Set-up or Clean-up Assistance-helper sets up or cleans up; patient completes activity. [place] assists only prior to or following the activity. 4-Supervision or Touching Assistance-helper provides verbal cues and/or touching/steadying and/or contact guard assistance as patient completes activity. Assistance may be provided throughout the activity or intermittently. 3-Partial/Moderate Assistance-helper does LESS THAN HALF the effort. [place] lifts, holds or supports trunk or limbs, but provides less than half the effort. 2-Substantial/Maximal Assistance-helper does MORE THAN HALF the effort. [place] lifts or holds trunk or limbs and provides more than half the effort. 0-Khocfyuzy-rxzjyo does ALL the effort. Patient does none of the effort to complete the activity. Or, the assistance of 2 or more helpers is required for the patient to complete the activity. If activity was not attempted, code reason: 7-Patient Refused. 9-Not Applicable-not attempted and the patient did not perform the activity before the current illness, exacerbation or injury. 10-Not Attempted due to Environmental Limitations-(lack of equipment, weather restraints, etc.). 88-Not Attempted due to Medical Conditions or Safety Concerns. Roll Left & Right (QC): 1 Sit to Lying (QC): 1 Lying to Sitting/Side of Bed(Q: 1 Weight Bearing Right Lower Extremity: Right Full Weight Bearing Left Lower Extremity: Left Full Weight Bearing Gait Training Does the Patient Walk?: No and Walking Goal IS indicated Exercises Supine Ex: LE Protocol Supine Reps: 15 Supine exercises performed as PROM due to lethargy. Treatments Pt sat edge of bed for 3 minutes with total assist to remain upright. Pt did begin moving the UEs and spoke a few words. She began opening her eyes and looking around. Pt returned to supine after, due to greater difficulty staying sitting. Assessment Current Status: Fair Progress She slowly gained consciousness throughout treatment and was able to speak and wave with the (L) hand by the end of treatment. PT Commission Auditor Goals Fpc Goals PT Fpc Goals Time Frame: Dec 24, 2022 Roll Left & Right (QC): 4 Sit to Lying (QC): 4 Lying-Sitting on Side/Bed(QC): 4 Sit to Stand (QC): 4 Chair/Oin-ua-Gdftg Xfer(QC): 4 Toilet Transfer (QC): 4 Car Transfer (QC): 4 Does the Patient Walk: Yes Walk 10 feet (QC): 4 Walk 50ft with 2 Turns (QC): 4 Walk 150 ft (QC): 4 Walking 10ft on Uneven Surface: 4 1 Step (curb) (QC): 4 4 Steps (QC): 9 12 Steps (QC): 9 Picking up an Object (QC): 9 Wheel 50 feet with 2 turns (QC: 9 Type: N/A Wheel 150 feet: 9 Type: N/A PT Plan Treatment/Plan Treatment Plan: Continue Plan of Care Treatment Plan: Bed Mobility, Education, Functional Activity [place], Functional Strength, Gait, Safety, Therapeutic Exercise, Transfers Treatment Duration: Dec 24, 2022 Frequency: 6 times per week Estimated Hrs Per Day: .25 hour per day Patient and/or Family Agrees t: Yes Time Time In: 0945 Time Out: 1010 DATE: Dec 03, 2022 Total Billed Treatment Time: 25 Total Billed Treatment 1, ex 15, fa 10 SUSAN AUSTIN PT Dec 03, 2022 11:28
[2022-12-03] MEDS: ACETAMINOPHEN 325 MG TABLET PO PRN ×3 (12:06→21:54)
[2022-12-03] MEDS: ENOXAPARIN 40 MG/0.4 ML SYRINGE SC SCH (12:07)
[2022-12-03 19:27] VITALS: BP 106/55
[2022-12-03] MEDS: ASPIRIN enteric coated 81MG TABLET PO SCH (19:30)
[2022-12-03] MEDS: THERAPEUTIC MULTIVITAMIN W/MINERALS TABLET PO SCH (19:30)
[2022-12-03] MEDS: MAGNESIUM OXIDE 400 MG TABLET PO SCH (19:30)
[2022-12-03] MEDS: LACTOBACILLUS ACIDOPHILUS (PROBIOTIC) CAPSULE PO SCH (19:30)
[2022-12-03] MEDS: FENOFIBRATE, Micronized 134 MG CAPSULE PO SCH (19:30)
[2022-12-03] MEDS: MELATONIN 3 MG TABLET PO PRN (23:34)
[2022-12-04 05:28] LABS: CALCIUM 9.4 MG/DL (8.5-10.1); CREATININE SERUM 0.57 MG/DL (0.60-1.30); MAGNESIUM 1.8 MG/DL (1.6-2.4)
[2022-12-04] MEDS: POTASSIUM CL 10MEQ/50ML IVPB 50 ML IV SCH (05:40)
[2022-12-04] MEDS: POTASSIUM CHLORIDE 20 MEQ TABLET PO SCH (05:40)
[2022-12-04] MEDS: MAGNESIUM 1 GM/100 ML IVPB 100 ML IV SCH ×2 (05:48→05:59)
[2022-12-04] MEDS: ACETAMINOPHEN 325 MG TABLET PO PRN ×3 (05:58→20:28)
[2022-12-04 07:46] VITALS: BP 157/67
[2022-12-04] MEDS: CLOPIDOGREL 75 MG TABLET PO SCH (08:37)
[2022-12-04] MEDS: CALCIUM POLYCARBOPHIL 625 MG TABLET PO SCH (08:37)
[2022-12-04] MEDS: POTASSIUM CHLORIDE 10 MEQ TABLET PO SCH (08:37)
[2022-12-04] MEDS: PANTOPRAZOLE 40 MG TABLET PO SCH (08:37)
[2022-12-04] MEDS: hydrALAZINE 25 MG TABLET PO SCH ×3 (08:37→20:28)
[2022-12-04] MEDS: LOSARTAN 100 MG TABLET PO SCH (08:37)
[2022-12-04 09:59] LABS: BASOPHILS % (AUTO) 0 % (0-10); EOSINOPHILS # (AUTO) 0.3 10^3/uL (0.0-0.3); EOSINOPHILS % (AUTO) 3 % (0-10); HEMATOCRIT 30 % (35-52); HEMOGLOBIN 9.6 g/dL (11.5-16.0); LYMPHOCYTES # (AUTO) 1.6 10^3/uL (1.0-4.0); LYMPHOCYTES % (AUTO) 18 % (12-44); MEAN CORPUSCULAR HEMOGLOBIN 29 pg (25-34); MEAN CORPUSCULAR HGB CONC 32 g/dL (32-36); MEAN CORPUSCULAR VOLUME 92 fL (80-99); MONOCYTES # (AUTO) 0.9 10^3/uL (0.0-1.0); MONOCYTES % (AUTO) 10 % (0-12); NEUTROPHILS # (AUTO) 6.2 10^3/uL (1.8-7.8); NEUTROPHILS % (AUTO) 69 % (42-75); PLATELET COUNT 385 10^3/uL (130-400); WHITE BLOOD COUNT 9.1 10^3/uL (4.3-11.0)
[2022-12-04] MEDS: ENOXAPARIN 40 MG/0.4 ML SYRINGE SC SCH (12:49)
[2022-12-04 20:20] VITALS: BP 211/78
[2022-12-04] MEDS: MAGNESIUM OXIDE 400 MG TABLET PO SCH (20:27)
[2022-12-04] MEDS: ASPIRIN enteric coated 81MG TABLET PO SCH (20:27)
[2022-12-04] MEDS: FENOFIBRATE, Micronized 134 MG CAPSULE PO SCH (20:27)
[2022-12-04] MEDS: LACTOBACILLUS ACIDOPHILUS (PROBIOTIC) CAPSULE PO SCH (20:27)
[2022-12-04] MEDS: THERAPEUTIC MULTIVITAMIN W/MINERALS TABLET PO SCH (20:28)
[2022-12-04] MEDS: MELATONIN 3 MG TABLET PO PRN (20:28)
[2022-12-04 20:33] VITALS: BP 116/56
[2022-12-05] MEDS: ACETAMINOPHEN 325 MG TABLET PO PRN ×4 (04:39→19:33)
[2022-12-05 07:29] LABS: CALCIUM 9.4 MG/DL (8.5-10.1); CREATININE SERUM 0.64 MG/DL (0.60-1.30); MAGNESIUM 1.8 MG/DL (1.6-2.4); POTASSIUM 4.6 MMOL/L (3.6-5.0)
[2022-12-05] MEDS: POTASSIUM CHLORIDE 20 MEQ TABLET PO SCH (07:32)
[2022-12-05] MEDS: POTASSIUM CL 10MEQ/50ML IVPB 50 ML IV SCH (07:32)
[2022-12-05] MEDS: MAGNESIUM 1 GM/100 ML IVPB 100 ML IV SCH ×3 (07:33→09:07)
[2022-12-05 07:35] VITALS: BP 168/77
[2022-12-05] MEDS: PANTOPRAZOLE 40 MG TABLET PO SCH (08:31)
[2022-12-05] MEDS: POTASSIUM CHLORIDE 10 MEQ TABLET PO SCH (08:31)
[2022-12-05] MEDS: CLOPIDOGREL 75 MG TABLET PO SCH (08:31)
[2022-12-05] MEDS: LOSARTAN 100 MG TABLET PO SCH (08:31)
[2022-12-05] MEDS: CALCIUM POLYCARBOPHIL 625 MG TABLET PO SCH (08:31)
[2022-12-05] MEDS: hydrALAZINE 25 MG TABLET PO SCH ×3 (08:31→19:33)
--- NOTE | 2022-12-05 10:57 | Physical Therapy Daily Note ---
PT Daily Note-Current Subjective Pt found supine in bed upon entry. Pt has difficulty speaking but does report pain /c B knee flexion. Family present. Pain Section J - Health Conditions 1. Rarely or not at all 2. Occasionally 3. Frequently 4. Almost constantly 8. Unable to answer Pain Effect on Sleep: 8 Pain Interference with Therapy: 8 Pain Interference w/Day-to-Day: 8 Mental Status Patient Orientation: [place] Attachments: Oxygen, IV Transfers SCALE: Activities may be completed with or without assistive devices. 0-Undoonrtkf-ecxfkmo completes the activity by him/herself with no assistance from a helper. 5-Set-up or Clean-up Assistance-helper sets up or cleans up; patient completes activity. [place] assists only prior to or following the activity. 4-Supervision or Touching Assistance-helper provides verbal cues and/or touching/steadying and/or contact guard assistance as patient completes activity. Assistance may be provided throughout the activity or intermittently. 3-Partial/Moderate Assistance-helper does LESS THAN HALF the effort. [place] lifts, holds or supports trunk or limbs, but provides less than half the effort. 2-Substantial/Maximal Assistance-helper does MORE THAN HALF the effort. [place] lifts or holds trunk or limbs and provides more than half the effort. 0-Nezrvznrr-apfzbm does ALL the effort. Patient does none of the effort to complete the activity. Or, the assistance of 2 or more helpers is required for the patient to complete the activity. If activity was not attempted, code reason: 7-Patient Refused. 9-Not Applicable-not attempted and the patient did not perform the activity before the current illness, exacerbation or injury. 10-Not Attempted due to Environmental Limitations-(lack of equipment, weather restraints, etc.). 88-Not Attempted due to Medical Conditions or Safety Concerns. Weight Bearing Right Lower Extremity: Right Full Weight Bearing Left Lower Extremity: Left Full Weight Bearing Treatments PROM/AAROM x 10 B: - Ankle pumps - Heel slides - Hip abd - Hip add - Quad sets - SLRs Assessment Current Status: Poor Progress Pt displays occasional responsiveness during treatment. When instructed to perform a quad set pt reports "I can do it but I don't want to." When instructed to perform a heel slides pt states "I can do it but it hurts my knees." Pt able to partially perform ankle pumps in supine position. Required PROM /c all other therapeutic exercises. Little muscle activation demonstrated while completing. Continue to progress pt per POC. PT Top Carrier Goals Top Carrier Goals PT Top Carrier Goals Time Frame: Dec 24, 2022 Roll Left & Right (QC): 4 Sit to Lying (QC): 4 Lying-Sitting on Side/Bed(QC): 4 Sit to Stand (QC): 4 Chair/Uht-jp-Bqerr Xfer(QC): 4 Toilet Transfer (QC): 4 Car Transfer (QC): 4 Does the Patient Walk: Yes Walk 10 feet (QC): 4 Walk 50ft with 2 Turns (QC): 4 Walk 150 ft (QC): 4 Walking 10ft on Uneven Surface: 4 1 Step (curb) (QC): 4 4 Steps (QC): 9 12 Steps (QC): 9 Picking up an Object (QC): 9 Wheel 50 feet with 2 turns (QC: 9 Type: N/A Wheel 150 feet: 9 Type: N/A PT Plan Treatment/Plan Treatment Plan: Continue Plan of Care Treatment Plan: Bed Mobility, Education, Functional Activity [place], Functional Strength, Gait, Safety, Therapeutic Exercise, Transfers Treatment Duration: Dec 24, 2022 Frequency: 6 times per week Estimated Hrs Per Day: .25 hour per day Patient and/or Family Agrees t: Yes Time Time In: 918 Time Out: 932 DATE: Dec 05, 2022 Total Billed Treatment Time: 14 Total Billed Treatment 1 visit EX x 1 SPENSER GOLDSMITH RADIOLOGICAL EQUIPMENT SPECIALIST Dec 05, 2022 10:56
--- NOTE | 2022-12-05 11:09 | Progress Note - Hospitalist ---
Subjective HPI/CC On Admission Date Seen by Provider: Dec 05, 2022 Subjective/Events-last exam Pt more alert than when I saw her last week. Asking to get up but then asks about getting in her car. 2 daughters in room. Discuss plan going forward and need to look into SNF placement. They plan to talk with Doreen about that tomorrow. Focused Exam Lactate Level 12/02/22 13:42: Lactic Acid Level 1.45 Objective Exam Vital Signs Vital Signs Date Time Temp Pulse Resp B/P (MAP) Pulse Ox O2 Delivery O2 Flow Rate FiO2 12/05/22 08:36 Room Air 12/05/22 07:35 37.0 85 18 168/77 (107) 91 12/03/22 09:13 2.00 12/02/22 07:54 21 Capillary Refill : General Appearance: No Apparent Distress, Chronically ill Respiratory: Lungs Clear, No Respiratory Distress Cardiovascular: Regular Rate, Rhythm Neurologic/Psychiatric: Alert, Disoriented Results/Procedures Lab Laboratory Tests 12/05/22 06:35 Patient resulted labs reviewed. Imaging: Reviewed Imaging Report Assessment/Plan Assessment and Plan Assess & Plan/Chief Complaint Chronic respiratory failure with hypoxia Supplemental oxygen as needed MAT protocol Repeat chest xray with mild left pleural effusion/thickening Delirium Likely dementia Lab workup unremarkable CT head with chronic atrophic changes Concern for progression of dementia with COVID- discussed this with family today Delirium improving slowly Repeat UA negative Await repeat blood cultures Debility PT/OT Discussed SNF placement HTN HLD GERD CAD Continue home meds DVT ppx: Lovenox Pyelonephritis, resolved EDITH, resolved Constipation, resolved COVID, resolved KADY KELLY MD Dec 05, 2022 11:09
[2022-12-05] MEDS: ENOXAPARIN 40 MG/0.4 ML SYRINGE SC SCH (12:15)
[2022-12-05 19:30] VITALS: BP 141/81
[2022-12-05] MEDS: FENOFIBRATE, Micronized 134 MG CAPSULE PO SCH (19:32)
[2022-12-05] MEDS: MAGNESIUM OXIDE 400 MG TABLET PO SCH (19:32)
[2022-12-05] MEDS: ASPIRIN enteric coated 81MG TABLET PO SCH (19:32)
[2022-12-05] MEDS: THERAPEUTIC MULTIVITAMIN W/MINERALS TABLET PO SCH (19:32)
[2022-12-05] MEDS: LACTOBACILLUS ACIDOPHILUS (PROBIOTIC) CAPSULE PO SCH (19:32)
[2022-12-05] MEDS: MELATONIN 3 MG TABLET PO PRN (19:33)
[2022-12-06] MEDS: ACETAMINOPHEN 325 MG TABLET PO PRN ×3 (03:34→19:53)
[2022-12-06 05:53] LABS: CALCIUM 9.3 MG/DL (8.5-10.1); CREATININE SERUM 0.63 MG/DL (0.60-1.30); POTASSIUM 4.1 MMOL/L (3.6-5.0)
[2022-12-06] MEDS: MAGNESIUM 1 GM/100 ML IVPB 100 ML IV SCH (06:09)
[2022-12-06] MEDS: POTASSIUM CHLORIDE 20 MEQ TABLET PO SCH (06:09)
[2022-12-06] MEDS: POTASSIUM CL 10MEQ/50ML IVPB 50 ML IV SCH (06:09)
[2022-12-06 08:32] VITALS: BP 145/68
[2022-12-06] MEDS: PANTOPRAZOLE 40 MG TABLET PO SCH (09:12)
[2022-12-06] MEDS: CALCIUM POLYCARBOPHIL 625 MG TABLET PO SCH (09:12)
[2022-12-06] MEDS: CLOPIDOGREL 75 MG TABLET PO SCH (09:13)
[2022-12-06] MEDS: POTASSIUM CHLORIDE 10 MEQ TABLET PO SCH (09:13)
[2022-12-06] MEDS: LOSARTAN 100 MG TABLET PO SCH (09:13)
[2022-12-06] MEDS: hydrALAZINE 25 MG TABLET PO SCH ×3 (09:13→19:53)
--- NOTE | 2022-12-06 09:40 | Physical Therapy Daily Note ---
PT Daily Note-Current Subjective Patient is more alert with eyes open on this date. Pain Section J - Health Conditions 1. Rarely or not at all 2. Occasionally 3. Frequently 4. Almost constantly 8. Unable to answer Pain Effect on Sleep: 8 Pain Interference with Therapy: 8 Pain Interference w/Day-to-Day: 8 Mental Status Attachments: Fatima Catheter Transfers SCALE: Activities may be completed with or without assistive devices. 1-Hcceojtixc-ogcyjzp completes the activity by him/herself with no assistance from a helper. 5-Set-up or Clean-up Assistance-helper sets up or cleans up; patient completes activity. [place] assists only prior to or following the activity. 4-Supervision or Touching Assistance-helper provides verbal cues and/or touching/steadying and/or contact guard assistance as patient completes activity. Assistance may be provided throughout the activity or intermittently. 3-Partial/Moderate Assistance-helper does LESS THAN HALF the effort. [place] lifts, holds or supports trunk or limbs, but provides less than half the effort. 2-Substantial/Maximal Assistance-helper does MORE THAN HALF the effort. [place] lifts or holds trunk or limbs and provides more than half the effort. 3-Bqzrcyexe-vwdyul does ALL the effort. Patient does none of the effort to complete the activity. Or, the assistance of 2 or more helpers is required for the patient to complete the activity. If activity was not attempted, code reason: 7-Patient Refused. 9-Not Applicable-not attempted and the patient did not perform the activity before the current illness, exacerbation or injury. 10-Not Attempted due to Environmental Limitations-(lack of equipment, weather restraints, etc.). 88-Not Attempted due to Medical Conditions or Safety Concerns. Lying to Sitting/Side of Bed(Q: 2 Sit to Stand (QC): 2 Chair/Aqc-ir-Zlyjd Xfer(QC): 2 Weight Bearing Right Lower Extremity: Right Full Weight Bearing Left Lower Extremity: Left Full Weight Bearing Exercises Seated Therapy Exercises: Ankle pumps, Long arc quads, Hip flexion Seated Reps: 12 (AAROM) Assessment Patient requires max assist with all mobility and is up in recliner with needs met. PT to continue to increase activity as tolerated by patient. PT Refrigeration Repair Supervisor Goals Refrigeration Repair Supervisor Goals PT Refrigeration Repair Supervisor Goals Time Frame: Dec 24, 2022 Roll Left & Right (QC): 4 Sit to Lying (QC): 4 Lying-Sitting on Side/Bed(QC): 4 Sit to Stand (QC): 4 Chair/Iod-ss-Ijitm Xfer(QC): 4 Toilet Transfer (QC): 4 Car Transfer (QC): 4 Does the Patient Walk: Yes Walk 10 feet (QC): 4 Walk 50ft with 2 Turns (QC): 4 Walk 150 ft (QC): 4 Walking 10ft on Uneven Surface: 4 1 Step (curb) (QC): 4 4 Steps (QC): 9 12 Steps (QC): 9 Picking up an Object (QC): 9 Wheel 50 feet with 2 turns (QC: 9 Type: N/A Wheel 150 feet: 9 Type: N/A PT Plan Treatment/Plan Treatment Plan: Continue Plan of Care Treatment Plan: Bed Mobility, Education, Functional Activity [place], Functional Strength, Gait, Safety, Therapeutic Exercise, Transfers Treatment Duration: Dec 24, 2022 Frequency: 6 times per week Estimated Hrs Per Day: .25 hour per day Patient and/or Family Agrees t: Yes Time Time In: 913 Time Out: 928 DATE: Dec 06, 2022 Total Billed Treatment Time: 15 Total Billed Treatment 1 visit FA 15 min SANTIAGO LOAIZA PT Dec 06, 2022 09:40
--- NOTE | 2022-12-06 10:24 | Occupational Ther Daily Note ---
OT Current Status-Daily Note Subjective Pt seated in bedside recliner upon entering room with family and RN present. Pain Comment: Pt unable to self report pain at this time; appears in no distress ADL-Treatment Therapy Code Descriptions/Definitions Functional [place] Measure: 0=Not Assessed/NA 4=Minimal Assistance 1=Total Assistance 5=Supervision or Setup 2=Maximal Assistance 6=Modified [place] 3=Moderate Assistance 7=Complete IndependenceSCALE: Activities may be completed with or without assistive devices. 6-Hzpadgufqn-uzwqxir completes the activity by him/herself with no assistance from a helper. 5-Set-up or Clean-up Assistance-helper sets up or cleans up; patient completes activity. [place] assists only prior to or following the activity. 4-Supervision or Touching Assistance-helper provides verbal cues and/or touching/steadying and/or contact guard assistance as patient completes activity. Assistance may be provided throughout the activity or intermittently. 3-Partial/Moderate Assistance-helper does LESS THAN HALF the effort. [place] lifts, holds or supports trunk or limbs, but provides less than half the effort. 2-Substantial/Maximal Assistance-helper does MORE THAN HALF the effort. [place] lifts or holds trunk or limbs and provides more than half the effort. 6-Eycjmemgl-zpssal does ALL the effort. Patient does none of the effort to complete the activity. Or, the assistance of 2 or more helpers is required for the patient to complete the activity. If activity was not attempted, code reason: 7-Patient Refused. 9-Not Applicable-not attempted and the patient did not perform the activity before the current illness, exacerbation or injury. 10-Not Attempted due to Environmental Limitations-(lack of equipment, weather restraints, etc.). 88-Not Attempted due to Medical Conditions or Safety Concerns. Eating (QC): 2 (Max A for feeding with pt requiring max encouraged to self feed. Pt held onto spoon and would not let go with hand over hand feeding via therapist. Pt held food in mouth and would not swallow despite encouragement. Pt spit food out and swatted at therapist, with pt noted to becoming aggressive. Attempted to get pt to finger feed self with bananas with pt declining. ) Pt wiped mouth with wash cloth with SAB with pt requiring verbal, tactile, and visual cues Education Teaching Methods: Demonstration Response to Teaching: Unable to Return Demonstration, Unable to Comprehend, Reinforcement Needed OT Short Term Goals Short Term Goals Time Frame: Dec 02, 2022 Eatin Oral hygiene: 4 OT Rubber Goods Finisher Goals Rubber Goods Finisher Goals Time Frame: Dec 16, 2022 Acute change in mental status: 1 Inattention: 2 Disorganized thinkin Altered level of consciousness: 2 (PER DAUGHTER REPORT) Eating (QC): 5 Oral Hygiene (QC): 4 Toileting Hygiene (QC): 3 Shower/Bathe Self (QC): 3 Upper Body Dressing (QC): 4 Lower Body Dressing (QC): 3 On/Off Footwear (QC): 3 1=Demonstrate adherence to instructed precautions during ADL tasks. 2=Patient will verbalize/demonstrate understanding of assistive devices/modifications for ADL. 3=Patient will improve strength/tolerance for activity to enable patient to perform ADL's. OT Education/Plan Problem List/Assessment Assessment: Decreased Activ Tolerance (Pt more alert compared to previous tx; no appropriate conversation, but able to participate more), Decreased Safety Aware, Decreased UE Strength, Impaired Bed Mobility, Impaired Cognition, Impaired Funct Balance, Impaired I ADL's, Impaired Self-Care Skills Discharge Recommendations Plan/Recommendations: Continue POC Treatment Plan/Plan of Care Patient would benefit from OT for education, treatment and training to promote independence in ADL's, mobility, safety and/or upper extremity function for ADL's. Plan of Care: ADL Retraining, Caregiver Training, Cognitive Retraining, Concur rent Therapy, Functional Mobility, Group Exercise/Act as Ind, UE Funct Exercise/Act, UE Neuromus Re-Ed/Coord Treatment Duration: Dec 09, 2022 Frequency: At least 5 of 7 days/Wk (IRF) Estimated Hrs Per Day: .25 hour per day Agreement: Yes Rehab Potential: Guarded Time Start Time: 09:26 Stop Time: 09:42 DATE: Dec 06, 2022 Total Time Billed (hr/min): 16 Billed Treatment Time 16 minutes ADL 1 ALONZO MUÑOZ Dec 06, 2022 10:24
[2022-12-06] MEDS: ENOXAPARIN 40 MG/0.4 ML SYRINGE SC SCH (12:47)
[2022-12-06] MEDS: MELATONIN 3 MG TABLET PO PRN (17:59)
[2022-12-06 19:25] VITALS: BP 140/64
[2022-12-06] MEDS: LACTOBACILLUS ACIDOPHILUS (PROBIOTIC) CAPSULE PO SCH (19:53)
[2022-12-06] MEDS: FENOFIBRATE, Micronized 134 MG CAPSULE PO SCH (19:53)
[2022-12-06] MEDS: ASPIRIN enteric coated 81MG TABLET PO SCH (19:53)
[2022-12-06] MEDS: MAGNESIUM OXIDE 400 MG TABLET PO SCH (19:53)
[2022-12-06] MEDS: THERAPEUTIC MULTIVITAMIN W/MINERALS TABLET PO SCH (19:53)
[2022-12-07] MEDS: ACETAMINOPHEN 325 MG TABLET PO PRN ×3 (05:22→23:51)
[2022-12-07 06:14] LABS: CALCIUM 9.4 MG/DL (8.5-10.1); CREATININE SERUM 0.63 MG/DL (0.60-1.30); MAGNESIUM 1.8 MG/DL (1.6-2.4); POTASSIUM 3.7 MMOL/L (3.6-5.0)
[2022-12-07] MEDS: MAGNESIUM 1 GM/100 ML IVPB 100 ML IV SCH ×3 (06:32→09:32)
[2022-12-07] MEDS: POTASSIUM CL 10MEQ/50ML IVPB 50 ML IV SCH (06:32)
[2022-12-07] MEDS: POTASSIUM CHLORIDE 20 MEQ TABLET PO SCH (06:33)
[2022-12-07] MEDS: POTASSIUM CHLORIDE 10 MEQ TABLET PO SCH (08:38)
[2022-12-07] MEDS: CALCIUM POLYCARBOPHIL 625 MG TABLET PO SCH (08:38)
[2022-12-07] MEDS: hydrALAZINE 25 MG TABLET PO SCH ×3 (08:38→20:11)
[2022-12-07] MEDS: LOSARTAN 100 MG TABLET PO SCH (08:38)
[2022-12-07] MEDS: CLOPIDOGREL 75 MG TABLET PO SCH (08:38)
[2022-12-07] MEDS: PANTOPRAZOLE 40 MG TABLET PO SCH (08:38)
[2022-12-07 09:00] VITALS: BP 170/81
[2022-12-07] MEDS ORDERED: POTASSIUM CHLORIDE 20 MEQ TABLET PO ONE (09:00)
--- NOTE | 2022-12-07 10:32 | Progress Note - Hospitalist ---
Subjective HPI/CC On Admission Date Seen by Provider: Dec 07, 2022 Subjective/Events-last exam Pt reports doing better today. No complaints. Daughter (Myriam) at bedside and reports she is better per her assessment today too. Eating more. Was up to the chair twice yesterday. Discussed with Myriam in the room and then called other daughter Wendy as well about discharge planning. They are going to look at some local nursing homes but are hesitant to move her as she's doing better here and would like to continue working with PT more. They are hopeful she would improve enough that she could maybe go to [facility] ([facility]) or even IRF. Discussed criteria for IRF but that I am open to whatever is best for their mom. Objective Exam Vital Signs Vital Signs Date Time Temp Pulse Resp B/P (MAP) Pulse Ox O2 Delivery O2 Flow Rate FiO2 12/07/22 05:50 Room Air 0.00 12/06/22 19:25 36.7 95 16 140/64 (89) 93 12/02/22 07:54 21 Capillary Refill : General Appearance: No Apparent Distress, Chronically ill Respiratory: Lungs Clear, No Respiratory Distress Cardiovascular: Regular Rate, Rhythm, No Murmur Neurologic/Psychiatric: Alert, Oriented x3 (slow to respond but oriented to person and place) Results/Procedures Lab Laboratory Tests 12/07/22 03:45 Patient resulted labs reviewed. Imaging: Reviewed Imaging Report Assessment/Plan Assessment and Plan Assess & Plan/Chief Complaint Chronic respiratory failure with hypoxia Supplemental oxygen as needed MAT protocol Doing well Delirium Likely dementia Lab workup unremarkable CT head with chronic atrophic changes Concern for progression of dementia with COVID- improving Repeat UA negative Blood cultures likely contaminants Debility PT/OT Discussed SNF placement as above, social work consulted, appreciate recs HTN HLD GERD CAD Continue home meds DVT ppx: Lovenox Pyelonephritis, resolved EDITH, resolved Constipation, resolved COVID, resolved KADY KELLY MD Dec 07, 2022 10:32
[2022-12-07] MEDS: ENOXAPARIN 40 MG/0.4 ML SYRINGE SC SCH (11:48)
--- NOTE | 2022-12-07 13:44 | Occupational Ther Daily Note ---
OT Current Status-Daily Note Subjective Eyes open and alert, reaching into the air. Mental Status/Objective Patient Orientation: Confused, Eyes Open, Mumbles Attachments: Fatima Catheter ADL-Treatment Therapy Code Descriptions/Definitions Functional [place] Measure: 0=Not Assessed/NA 4=Minimal Assistance 1=Total Assistance 5=Supervision or Setup 2=Maximal Assistance 6=Modified [place] 3=Moderate Assistance 7=Complete IndependenceSCALE: Activities may be completed with or without assistive devices. 2-Lyeypokpkq-svttatg completes the activity by him/herself with no assistance from a helper. 5-Set-up or Clean-up Assistance-helper sets up or cleans up; patient completes activity. [place] assists only prior to or following the activity. 4-Supervision or Touching Assistance-helper provides verbal cues and/or touching/steadying and/or contact guard assistance as patient completes activity. Assistance may be provided throughout the activity or intermittently. 3-Partial/Moderate Assistance-helper does LESS THAN HALF the effort. [place] lifts, holds or supports trunk or limbs, but provides less than half the effort. 2-Substantial/Maximal Assistance-helper does MORE THAN HALF the effort. [place] lifts or holds trunk or limbs and provides more than half the effort. 6-Ultkeouzq-cyywhn does ALL the effort. Patient does none of the effort to complete the activity. Or, the assistance of 2 or more helpers is required for the patient to complete the activity. If activity was not attempted, code reason: 7-Patient Refused. 9-Not Applicable-not attempted and the patient did not perform the activity before the current illness, exacerbation or injury. 10-Not Attempted due to Environmental Limitations-(lack of equipment, weather restraints, etc.). 88-Not Attempted due to Medical Conditions or Safety Concerns. Other Treatment CORE sitting balance, weight shicting an performance of transfer sequences broken down and repeated for strengthening and endurance. Max assist for recliner to bed, to lift BLEs into bed, Mod assist to lower UB onto bed, 2 person to scoot patient up in to bed, AAROM to UES, clothe placed in palm for protection from ails Education OT Patient Education: Correct positioning, Exercise program, Instructions to caregiver, Progress toward Goal/Update tx plan, Purpose of tx/functional activities, Reviewed precautions, Rehab process, Safety issues, Transfer techniques Teaching Recipient: Patient, Family Teaching Methods: Demonstration, Discussion Response to Teaching: Reinforcement Needed OT Short Term Goals Short Term Goals Time Frame: Dec 02, 2022 Eatin Oral hygiene: 4 OT Help Desk Intern Goals Half-Way Goals Time Frame: Dec 16, 2022 Acute change in mental status: 1 Inattention: 2 Disorganized thinkin Altered level of consciousness: 2 (PER DAUGHTER REPORT) Eating (QC): 5 Oral Hygiene (QC): 4 Toileting Hygiene (QC): 3 Shower/Bathe Self (QC): 3 Upper Body Dressing (QC): 4 Lower Body Dressing (QC): 3 On/Off Footwear (QC): 3 1=Demonstrate adherence to instructed precautions during ADL tasks. 2=Patient will verbalize/demonstrate understanding of assistive devices/modifica tions for ADL. 3=Patient will improve strength/tolerance for activity to enable patient to perform ADL's. OT Education/Plan Problem List/Assessment Assessment: Decreased Activ Tolerance, Decreased Safety Aware, Decreased UE Strength, Dependent Transfers, Impaired Bed Mobility, Impaired Cognition, Impaired Coordination, Impaired Funct Balance, Impaired Self-Care Skills, Restricted Funct UE ROM Discharge Recommendations Plan/Recommendations: Continue POC Therapy Discharge Recommendati: Post Acute OT Treatment Plan/Plan of Care Patient would benefit from OT for education, treatment and training to promote independence in ADL's, mobility, safety and/or upper extremity function for ADL's. Plan of Care: ADL Retraining, Caregiver Training, Cognitive Retraining, Concurrent Therapy, Functional Mobility, Group Exercise/Act as Ind, UE Funct Exercise/Act, UE Neuromus Re-Ed/Coord Treatment Duration: Dec 09, 2022 Frequency: At least 5 of 7 days/Wk (IRF) Estimated Hrs Per Day: .25 hour per day Agreement: Yes Rehab Potential: Guarded Time Start Time: 13:15 Stop Time: 13:31 DATE: Dec 07, 2022 Total Time Billed (hr/min): 16 Billed Treatment Time EX 16 min MIK MAHMOOD OT Dec 07, 2022 13:44
--- NOTE | 2022-12-07 15:34 | Physical Therapy Daily Note ---
PT Daily Note-Current Subjective Pt found lying in bed /c family present upon entry. Agreed to PT. Pt able to occasionally verbalize quietly and answer questions. No reports of pain but pt does state that she is tired. Pain Section J - Health Conditions 1. Rarely or not at all 2. Occasionally 3. Frequently 4. Almost constantly 8. Unable to answer Pain Effect on Sleep: 8 Pain Interference with Therapy: 8 Pain Interference w/Day-to-Day: 8 Mental Status Patient Orientation: Person Attachments: Fatima Catheter Transfers SCALE: Activities may be completed with or without assistive devices. 9-Vioyyywzpr-jicnvic completes the activity by him/herself with no assistance from a helper. 5-Set-up or Clean-up Assistance-helper sets up or cleans up; patient completes activity. [place] assists only prior to or following the activity. 4-Supervision or Touching Assistance-helper provides verbal cues and/or touching/steadying and/or contact guard assistance as patient completes activity. Assistance may be provided throughout the activity or intermittently. 3-Partial/Moderate Assistance-helper does LESS THAN HALF the effort. [place] lifts, holds or supports trunk or limbs, but provides less than half the effort. 2-Substantial/Maximal Assistance-helper does MORE THAN HALF the effort. [place] lifts or holds trunk or limbs and provides more than half the effort. 1-Rfgwhdnzs-daxpma does ALL the effort. Patient does none of the effort to complete the activity. Or, the assistance of 2 or more helpers is required for the patient to complete the activity. If activity was not attempted, code reason: 7-Patient Refused. 9-Not Applicable-not attempted and the patient did not perform the activity before the current illness, exacerbation or injury. 10-Not Attempted due to Environmental Limitations-(lack of equipment, weather restraints, etc.). 88-Not Attempted due to Medical Conditions or Safety Concerns. Sit to Lying (QC): 2 Lying to Sitting/Side of Bed(Q: 2 Weight Bearing Right Lower Extremity: Right Full Weight Bearing Left Lower Extremity: Left Full Weight Bearing Treatments Seated Therapeutic Exercises (B) x 10 ea AAROM: - Ankle pumps - Marching - LAQs - Hip add Assessment Current Status: Fair Progress Pt transfers from supine position to seated position /c MAX assist for LE lifting and hand held assist for trunk lifting. Pt able to partially move LEs to edge of bed and pull self up. After being seated on edge of bed pt performs therapeutic exercises /c AAROM. Displays very limited muscle strength and is unable to complete full ROM without assistance. After completing exercises pt is transferred from seated position to supine position /c MAX assist for LE lifting and scooting up in bed. Pt reports rear pain in supine position and pillows are placed under L side. Pt left in partial side-lying on R side /c family present, call light in place, and all needs met post-treatment. Continue to progress pt per POC. PT Healthcare Risk Control Consultant Goals Half-Way Goals PT Healthcare Risk Control Consultant Goals Time Frame: Dec 24, 2022 Roll Left & Right (QC): 4 Sit to Lying (QC): 4 Lying-Sitting on Side/Bed(QC): 4 Sit to Stand (QC): 4 Chair/Vsv-dt-Sdysx Xfer(QC): 4 Toilet Transfer (QC): 4 Car Transfer (QC): 4 Does the Patient Walk: Yes Walk 10 feet (QC): 4 Walk 50ft with 2 Turns (QC): 4 Walk 150 ft (QC): 4 Walking 10ft on Uneven Surface: 4 1 Step (curb) (QC): 4 4 Steps (QC): 9 12 Steps (QC): 9 Picking up an Object (QC): 9 Wheel 50 feet with 2 turns (QC: 9 Type: N/A Wheel 150 feet: 9 Type: N/A PT Plan Treatment/Plan Treatment Plan: Continue Plan of Care Treatment Plan: Bed Mobility, Education, Functional Activity [place], Functional Strength, Gait, Safety, Therapeutic Exercise, Transfers Treatment Duration: Dec 24, 2022 Frequency: 6 times per week Estimated Hrs Per Day: .25 hour per day Patient and/or Family Agrees t: Yes Time Time In: 1445 Time Out: 1502 DATE: Dec 07, 2022 Total Billed Treatment Time: 17 Total Billed Treatment 1 visit EX x 1 SPENSER GOLDSMITH TELEMEDICINE PHYSICIAN Dec 07, 2022 15:33
[2022-12-07 20:00] VITALS: BP 135/66
[2022-12-07] MEDS: MAGNESIUM OXIDE 400 MG TABLET PO SCH (20:11)
[2022-12-07] MEDS: LACTOBACILLUS ACIDOPHILUS (PROBIOTIC) CAPSULE PO SCH (20:11)
[2022-12-07] MEDS: FENOFIBRATE, Micronized 134 MG CAPSULE PO SCH (20:11)
[2022-12-07] MEDS: MELATONIN 3 MG TABLET PO PRN (20:11)
[2022-12-07] MEDS: ASPIRIN enteric coated 81MG TABLET PO SCH (20:11)
[2022-12-07] MEDS: THERAPEUTIC MULTIVITAMIN W/MINERALS TABLET PO SCH (20:11)
[2022-12-08 08:14] VITALS: BP 173/82
[2022-12-08] MEDS: CLOPIDOGREL 75 MG TABLET PO SCH (08:37)
[2022-12-08] MEDS: hydrALAZINE 25 MG TABLET PO SCH ×3 (08:37→20:48)
[2022-12-08] MEDS: POTASSIUM CHLORIDE 10 MEQ TABLET PO SCH (08:37)
[2022-12-08] MEDS: CALCIUM POLYCARBOPHIL 625 MG TABLET PO SCH (08:37)
[2022-12-08] MEDS: POTASSIUM CL 10MEQ/50ML IVPB 50 ML IV SCH (08:38)
[2022-12-08] MEDS: LOSARTAN 100 MG TABLET PO SCH (08:38)
[2022-12-08] MEDS: MAGNESIUM 1 GM/100 ML IVPB 100 ML IV SCH (08:38)
[2022-12-08] MEDS: PANTOPRAZOLE 40 MG TABLET PO SCH (08:38)
[2022-12-08] MEDS: POTASSIUM CHLORIDE 20 MEQ TABLET PO SCH (08:39)
--- NOTE | 2022-12-08 09:21 | Physical Therapy Daily Note ---
PT Daily Note-Current Subjective Patient is more alert. She asked for her mother. Pain Section J - Health Conditions 1. Rarely or not at all 2. Occasionally 3. Frequently 4. Almost constantly 8. Unable to answer Pain Effect on Sleep: 8 Pain Interference with Therapy: 8 Pain Interference w/Day-to-Day: 8 Mental Status Patient Orientation: Confused Transfers SCALE: Activities may be completed with or without assistive devices. 5-Gcrhphsgiv-usxcofj completes the activity by him/herself with no assistance from a helper. 5-Set-up or Clean-up Assistance-helper sets up or cleans up; patient completes activity. [place] assists only prior to or following the activity. 4-Supervision or Touching Assistance-helper provides verbal cues and/or touching/steadying and/or contact guard assistance as patient completes activity. Assistance may be provided throughout the activity or intermittently. 3-Partial/Moderate Assistance-helper does LESS THAN HALF the effort. [place] lifts, holds or supports trunk or limbs, but provides less than half the effort. 2-Substantial/Maximal Assistance-helper does MORE THAN HALF the effort. [place] lifts or holds trunk or limbs and provides more than half the effort. 4-Zzdhkcpfi-ssbzhw does ALL the effort. Patient does none of the effort to complete the activity. Or, the assistance of 2 or more helpers is required for the patient to complete the activity. If activity was not attempted, code reason: 7-Patient Refused. 9-Not Applicable-not attempted and the patient did not perform the activity before the current illness, exacerbation or injury. 10-Not Attempted due to Environmental Limitations-(lack of equipment, weather restraints, etc.). 88-Not Attempted due to Medical Conditions or Safety Concerns. Roll Left & Right (QC): 1 Sit to Lying (QC): 1 Lying to Sitting/Side of Bed(Q: 2 Sit to Stand (QC): 1 Chair/Apx-rf-Njmhf Xfer(QC): 1 max assist of 2 with sit to stand and transfer to recliner with patient attempting to take side steps with VC's "right, left". Attempted to utilize FWW with sit to stand and with transfer, however, patient unable to perform on this date. Weight Bearing Right Lower Extremity: Right Full Weight Bearing Left Lower Extremity: Left Full Weight Bearing Gait Training Walk 10 feet (QC): 88 Exercises Supine Ex: Ankle pumps, Heel Slides, Straight leg raise, Hip abd/add Supine Reps: 12 (PROM with patient resisting with all mobility) Seated Therapy Exercises: Sit to stand (x 3 sets max assist of 2), Long arc quads Seated Reps: 12 (PROM) Assessment Patient continues to require dependent assist of 2 with all mobility. PT/OT cotreat due to high complexity patient. Patient continues to present with poor balance and resistance with all mobility. Patient is up in recliner with needs met. PT Cosmetic Manager Goals Cosmetic Manager Goals PT Assisted Goals Time Frame: Dec 24, 2022 Roll Left & Right (QC): 4 Sit to Lying (QC): 4 Lying-Sitting on Side/Bed(QC): 4 Sit to Stand (QC): 4 Chair/Lnw-uc-Kiwop Xfer(QC): 4 Toilet Transfer (QC): 4 Car Transfer (QC): 4 Does the Patient Walk: Yes Walk 10 feet (QC): 4 Walk 50ft with 2 Turns (QC): 4 Walk 150 ft (QC): 4 Walking 10ft on Uneven Surface: 4 1 Step (curb) (QC): 4 4 Steps (QC): 9 12 Steps (QC): 9 Picking up an Object (QC): 9 Wheel 50 feet with 2 turns (QC: 9 Type: N/A Wheel 150 feet: 9 Type: N/A PT Plan Treatment/Plan Treatment Plan: Continue Plan of Care Treatment Plan: Bed Mobility, Education, Functional Activity [place], Functional Strength, Gait, Safety, Therapeutic Exercise, Transfers Treatment Duration: Dec 24, 2022 Frequency: 6 times per week Estimated Hrs Per Day: .25 hour per day Patient and/or Family Agrees t: Yes Time Time In: 841 Time Out: 857 DATE: Dec 08, 2022 Total Billed Treatment Time: 16 Total Billed Treatment 1 visit FA 16 min (cotreat with OT) SANTIAGO LOAIZA PT Dec 08, 2022 09:21
--- NOTE | 2022-12-08 09:43 | Occupational Ther Daily Note ---
OT Current Status-Daily Note Subjective Family choice to use remaining days in [facility] rather than SNF Mental Status/Objective Patient Orientation: Person, Confused (improving), Eyes Open Attachments: Fatima Catheter ADL-Treatment Sponge bathe w/ OT, co-tx standing and transfers d/t 2 person. BM incont on arrival, Bed mobility max x2 supine to sit. ROM performed w/ UB sponge bathing, redness and rash noted under left breast axilla area Therapy Code Descriptions/Definitions Functional [place] Measure: 0=Not Assessed/NA 4=Minimal Assistance 1=Total Assistance 5=Supervision or Setup 2=Maximal Assistance 6=Modified [place] 3=Moderate Assistance 7=Complete IndependenceSCALE: Activities may be completed with or without assistive devices. 2-Iqrfieerur-mltcazu completes the activity by him/herself with no assistance from a helper. 5-Set-up or Clean-up Assistance-helper sets up or cleans up; patient completes activity. [place] assists only prior to or following the activity. 4-Supervision or Touching Assistance-helper provides verbal cues and/or touching/steadying and/or contact guard assistance as patient completes activity. Assistance may be provided throughout the activity or intermittently. 3-Partial/Moderate Assistance-helper does LESS THAN HALF the effort. [place] lifts, holds or supports trunk or limbs, but provides less than half the effort. 2-Substantial/Maximal Assistance-helper does MORE THAN HALF the effort. [place] lifts or holds trunk or limbs and provides more than half the effort. 7-Apphssrfx-bvspvy does ALL the effort. Patient does none of the effort to complete the activity. Or, the assistance of 2 or more helpers is required for the patient to complete the activity. If activity was not attempted, code reason: 7-Patient Refused. 9-Not Applicable-not attempted and the patient did not perform the activity before the current illness, exacerbation or injury. 10-Not Attempted due to Environmental Limitations-(lack of equipment, weather restraints, etc.). 88-Not Attempted due to Medical Conditions or Safety Concerns. Eating (QC): 4 Oral Hygiene (QC): 4 Bathing Location: L Arm, R Arm, Chest, Abdomen, Buttocks, Perineal Area Shower/Bathe Self (QC): 1 (cannot stand w/ 2 person assist) Upper Body Dressing (QC): 3 (Lifts arms and pulls on sleeve during donning) Lower Body Dressing (QC): 1 On/Off Footwear: 1 Toileting Hygiene (QC): 1 Toilet Transfer (QC): 1 Education OT Patient Education: Correct positioning, Energy conservation, Instructions to caregiver, Modified ADL techniques, Progress toward Goal/Update tx plan, Purpose of tx/functional activities, Reviewed precautions, Rehab process, Safety issues, Transfer techniques Teaching Recipient: Patient Teaching Methods: Discussion Response to Teaching: Verbalize Understanding, Reinforcement Needed OT Short Term Goals Short Term Goals Time Frame: Dec 02, 2022 Eatin Oral hygiene: 4 OT Summer Counselor Goals Care Home Goals Time Frame: Dec 16, 2022 Acute change in mental status: 1 Inattention: 2 Disorganized thinkin Altered level of consciousness: 2 (PER DAUGHTER REPORT) Eating (QC): 5 Oral Hygiene (QC): 4 Toileting Hygiene (QC): 3 Shower/Bathe Self (QC): 3 Upper Body Dressing (QC): 4 Lower Body Dressing (QC): 3 On/Off Footwear (QC): 3 1=Demonstrate adherence to instructed precautions during ADL tasks. 2=Patient will verbalize/demonstrate understanding of assistive devices/modifications for ADL. 3=Patient will improve strength/tolerance for activity to enable patient to perform ADL's. OT Education/Plan Problem List/Assessment Assessment: Decreased Activ Tolerance, Decreased Safety Aware, Decreased UE Strength, Dependent Transfers, Impaired Bed Mobility, Impaired Cognition, Impaired Coordination, Impaired Funct Balance, Impaired Self-Care Skills, Restricted Funct UE ROM Discharge Recommendations Plan/Recommendations: Continue POC Treatment Plan/Plan of Care Treatment,Training & Education: Yes Patient would benefit from OT for education, treatment and training to promote independence in ADL's, mobility, safety and/or upper extremity function for ADL's. Plan of Care: ADL Retraining, Caregiver Training, Cognitive Retraining, Concurrent Therapy, Functional Mobility, Group Exercise/Act as Ind, UE Funct Exercise/Act, UE Neuromus Re-Ed/Coord Treatment Duration: Dec 09, 2022 Frequency: At least 5 of 7 days/Wk (IRF) Estimated Hrs Per Day: .25 hour per day Agreement: Yes Rehab Potential: Guarded Time Start Time: 08:45 Stop Time: 09:10 DATE: Dec 08, 2022 Total Time Billed (hr/min): 25 Billed Treatment Time CO-TX w/ PT for bed mobility,transfers and standing FA OT [id number] for ADLS MIK MAHMOOD OT Dec 08, 2022 09:43
[2022-12-08] MEDS: ENOXAPARIN 40 MG/0.4 ML SYRINGE SC SCH (14:40)
[2022-12-08 15:40] LABS: AMORPHOUS SEDIMENT,UR LARGE AMOR PHOSPHATE /LPF; BACTERIA,URINE LARGE /HPF; BILIRUBIN,URINE NEGATIVE (NEGATIVE); CLARITY,URINE CLOUDY; COLOR,URINE YELLOW; GLUCOSE, URINE (UA) NEGATIVE (NEGATIVE); KETONES,URINE NEGATIVE (NEGATIVE); LEUKOCYTE ESTERASE ,URINE 3+ (NEGATIVE); NITRITE,URINE POSITIVE (NEGATIVE); PH,URINE 7.5 (5-9); PROTEIN,URINE 2+ (NEGATIVE); WBC,URINE 50-100 /HPF
[2022-12-08] MEDS ORDERED: MEROPENEM INJECTION 1,000 MG in NS (IVPB) 100 ML 100 ML IV SCH (16:00)
[2022-12-08] MEDS: MEROPENEM 500 MG/NS 100 ML IVPB IV SCH ×2 (16:25)
[2022-12-08 19:21] VITALS: BP 177/72
[2022-12-08] MEDS: ASPIRIN enteric coated 81MG TABLET PO SCH (20:47)
[2022-12-08] MEDS: MAGNESIUM OXIDE 400 MG TABLET PO SCH (20:48)
[2022-12-08] MEDS: FENOFIBRATE, Micronized 134 MG CAPSULE PO SCH (20:48)
[2022-12-08] MEDS: MELATONIN 3 MG TABLET PO PRN (20:48)
[2022-12-08] MEDS: LACTOBACILLUS ACIDOPHILUS (PROBIOTIC) CAPSULE PO SCH (20:49)
[2022-12-08] MEDS: THERAPEUTIC MULTIVITAMIN W/MINERALS TABLET PO SCH (20:49)
[2022-12-09] MEDS: MEROPENEM 500 MG/NS 100 ML IVPB IV SCH ×6 (00:58→15:31)
[2022-12-09] MEDS: hydrALAZINE INJECTION 20 MG/ML VIAL IV PRN (01:02)
[2022-12-09 08:06] LABS: HEMATOCRIT 31 % (35-52); HEMOGLOBIN 10.2 g/dL (11.5-16.0); MEAN CORPUSCULAR HEMOGLOBIN 30 pg (25-34); MEAN CORPUSCULAR HGB CONC 33 g/dL (32-36); MEAN CORPUSCULAR VOLUME 90 fL (80-99); MEAN PLATELET VOLUME 9.9 fL (9.0-12.2); PLATELET COUNT 414 10^3/uL (130-400); WHITE BLOOD COUNT 9.6 10^3/uL (4.3-11.0)
[2022-12-09 08:24] LABS: CALCIUM 9.1 MG/DL (8.5-10.1); CREATININE SERUM 0.59 MG/DL (0.60-1.30); MAGNESIUM 1.7 MG/DL (1.6-2.4); POTASSIUM 3.8 MMOL/L (3.6-5.0)
[2022-12-09] MEDS: POTASSIUM CHLORIDE 20 MEQ TABLET PO SCH (08:33)
[2022-12-09] MEDS: POTASSIUM CL 10MEQ/50ML IVPB 50 ML IV SCH (08:33)
[2022-12-09] MEDS: POTASSIUM CHLORIDE 10 MEQ TABLET PO SCH (08:54)
[2022-12-09] MEDS: ACETAMINOPHEN 325 MG TABLET PO PRN ×2 (08:54→19:42)
[2022-12-09] MEDS: LOSARTAN 100 MG TABLET PO SCH (08:55)
[2022-12-09] MEDS: CALCIUM POLYCARBOPHIL 625 MG TABLET PO SCH (08:55)
[2022-12-09] MEDS: hydrALAZINE 25 MG TABLET PO SCH ×3 (08:55→19:42)
[2022-12-09] MEDS: CLOPIDOGREL 75 MG TABLET PO SCH (08:55)
[2022-12-09] MEDS: PANTOPRAZOLE 40 MG TABLET PO SCH (08:55)
[2022-12-09 08:56] VITALS: BP 166/79
--- NOTE | 2022-12-09 10:44 | Occupational Ther Daily Note ---
OT Current Status-Daily Note Subjective Opens eyes, more talkative w/ 2-3 words at a time, resistive to perform visula tracking and rotation of body for scanning and attention right/left Mental Status/Objective Patient Orientation: Person Attachments: Fatima Catheter, IV ADL-Treatment Sponge bathing UB and scotty care. Patient holds cloth to face w/ hand over hand placemtmn, All functional activtyis facilitated w/ Hand over hand instruction and max assist, transfers w/ 2 person, deos not sustain WB through BUEs. Knee flexion and hip flexion prevent erect standing, does not push through FWW handles to transfer for scotty care. PT assistance for standing and transfers Therapy Code Descriptions/Definitions Functional [place] Measure: 0=Not Assessed/NA 4=Minimal Assistance 1=Total Assistance 5=Supervision or Setup 2=Maximal Assistance 6=Modified [place] 3=Moderate Assistance 7=Complete IndependenceSCALE: Activities may be completed with or without assistive devices. 3-Fsnbdfihcr-vqbpxvz completes the activity by him/herself with no assistance from a helper. 5-Set-up or Clean-up Assistance-helper sets up or cleans up; patient completes activity. [place] assists only prior to or following the activity. 4-Supervision or Touching Assistance-helper provides verbal cues and/or touching/steadying and/or contact guard assistance as patient completes activity. Assistance may be provided throughout the activity or intermittently. 3-Partial/Moderate Assistance-helper does LESS THAN HALF the effort. [place] lifts, holds or supports trunk or limbs, but provides less than half the effort. 2-Substantial/Maximal Assistance-helper does MORE THAN HALF the effort. [place] lifts or holds trunk or limbs and provides more than half the effort. 0-Yjylixmyw-cwvjsu does ALL the effort. Patient does none of the effort to complete the activity. Or, the assistance of 2 or more helpers is required for the patient to complete the activity. If activity was not attempted, code reason: 7-Patient Refused. 9-Not Applicable-not attempted and the patient did not perform the activity before the current illness, exacerbation or injury. 10-Not Attempted due to Environmental Limitations-(lack of equipment, weather restraints, etc.). 88-Not Attempted due to Medical Conditions or Safety Concerns. Eating (QC): 2 (Hold mug w/ open hand and wrap thumb around hanlde to increase abduction, finger extension) Oral Hygiene (QC): 2 Shower/Bathe Self (QC): 2 Toileting Hygiene (QC): 1 Toilet Transfer (QC): 1 Education OT Patient Education: Correct positioning, Exercise program, Instructions to caregiver, Modified ADL techniques, Progress toward Goal/Update tx plan, Purpose of tx/functional activities, Reviewed precautions, Rehab process, Safety issues, Transfer techniques, Use of adapted equipment Teaching Recipient: Patient, Family Teaching Methods: Demonstration, Discussion Response to Teaching: Verbalize Understanding, Reinforcement Needed OT Short Term Goals Short Term Goals Time Frame: Dec 02, 2022 Eatin Oral hygiene: 4 OT Hotel Houseman Goals Residential Goals Time Frame: Dec 16, 2022 Acute change in mental status: 1 Inattention: 2 Disorganized thinkin Altered level of consciousness: 2 (PER DAUGHTER REPORT) Eating (QC): 5 Oral Hygiene (QC): 4 Toileting Hygiene (QC): 3 Shower/Bathe Self (QC): 3 Upper Body Dressing (QC): 4 Lower Body Dressing (QC): 3 On/Off Footwear (QC): 3 1=Demonstrate adherence to instructed precautions during ADL tasks. 2=Patient will verbalize/demonstrate understanding of assistive devices/modifications for ADL. 3=Patient will improve strength/tolerance for activity to enable patient to perform ADL's. OT Education/Plan Problem List/Assessment Assessment: Decreased Activ Tolerance, Decreased Safety Aware, Decreased UE Strength, Dependent Transfers, Impaired Bed Mobility, Impaired Cognition, Impaired Coordination, Impaired Funct Balance, Impaired I ADL's, Impaired Self- Care Skills, Restricted Funct UE ROM Discharge Recommendations Plan/Recommendations: Continue POC Treatment Plan/Plan of Care Patient would benefit from OT for education, treatment and training to promote independence in ADL's, mobility, safety and/or upper extremity function for ADL's. Plan of Care: ADL Retraining, Caregiver Training, Cognitive Retraining, Concurrent Therapy, Functional Mobility, Group Exercise/Act as Ind, UE Funct Exercise/Act, UE Neuromus Re-Ed/Coord Treatment Duration: Dec 09, 2022 Frequency: At least 5 of 7 days/Wk (IRF) Estimated Hrs Per Day: .25 hour per day Agreement: Yes Rehab Potential: Guarded Time Start Time: 09:30 Stop Time: 09:54 DATE: Dec 09, 2022 Total Time Billed (hr/min): 24 Billed Treatment Time 24 min ADL CO-TX w/ PT due to 2 person transfers MIK MAHMOOD OT Dec 09, 2022 10:44
--- NOTE | 2022-12-09 10:47 | Physical Therapy Daily Note ---
PT Daily Note-Current Subjective Patient is more alert on this date. Does not follow direction with exercises. Eyes closed the majority of therapy session. PT/OT cotreat due to patient's dependent LOF. Pain Section J - Health Conditions 1. Rarely or not at all 2. Occasionally 3. Frequently 4. Almost constantly 8. Unable to answer Pain Effect on Sleep: 8 Pain Interference with Therapy: 8 Pain Interference w/Day-to-Day: 8 Mental Status Patient Orientation: Confused Attachments: Fatima Catheter, IV Transfers SCALE: Activities may be completed with or without assistive devices. 9-Hsymvumjns-xdvjuwy completes the activity by him/herself with no assistance from a helper. 5-Set-up or Clean-up Assistance-helper sets up or cleans up; patient completes activity. [place] assists only prior to or following the activity. 4-Supervision or Touching Assistance-helper provides verbal cues and/or touching/steadying and/or contact guard assistance as patient completes activity. Assistance may be provided throughout the activity or intermittently. 3-Partial/Moderate Assistance-helper does LESS THAN HALF the effort. [place] lifts, holds or supports trunk or limbs, but provides less than half the effort. 2-Substantial/Maximal Assistance-helper does MORE THAN HALF the effort. [place] lifts or holds trunk or limbs and provides more than half the effort. 0-Qdvupmsmw-cpsvlm does ALL the effort. Patient does none of the effort to complete the activity. Or, the assistance of 2 or more helpers is required for the patient to complete the activity. If activity was not attempted, code reason: 7-Patient Refused. 9-Not Applicable-not attempted and the patient did not perform the activity before the current illness, exacerbation or injury. 10-Not Attempted due to Environmental Limitations-(lack of equipment, weather restraints, etc.). 88-Not Attempted due to Medical Conditions or Safety Concerns. Sit to Stand (QC): 1 (x 2 to FWW x 4 sets with patient retropulsive, trunk flexed posture) Weight Bearing Right Lower Extremity: Right Full Weight Bearing Left Lower Extremity: Left Full Weight Bearing Exercises Supine Ex: Ankle pumps, Heel Slides, Straight leg raise Supine Reps: 12 (PROM with patient resisting with noted mild right knee flexion contracture/tightness with stretching) Seated Therapy Exercises: Ankle pumps, Long arc quads Seated Reps: 12 (PROM with patient resisting with noted mild right knee flexion contracture/tightness with stretching) Treatments cervical rotation stretch with noted severe tightness Assessment Current Status: Poor Progress Patient continues to require dependent of 2 with all mobility and to address ADL's (refer to OT note). PT/OT cotreat due to previous statement. Patient not progressing at this time. PT Fuse Assembler Goals Fuse Assembler Goals PT Fuse Assembler Goals Time Frame: Dec 24, 2022 Roll Left & Right (QC): 4 Sit to Lying (QC): 4 Lying-Sitting on Side/Bed(QC): 4 Sit to Stand (QC): 4 Chair/Obv-ac-Mtgkj Xfer(QC): 4 Toilet Transfer (QC): 4 Car Transfer (QC): 4 Does the Patient Walk: Yes Walk 10 feet (QC): 4 Walk 50ft with 2 Turns (QC): 4 Walk 150 ft (QC): 4 Walking 10ft on Uneven Surface: 4 1 Step (curb) (QC): 4 4 Steps (QC): 9 12 Steps (QC): 9 Picking up an Object (QC): 9 Wheel 50 feet with 2 turns (QC: 9 Type: N/A Wheel 150 feet: 9 Type: N/A PT Plan Treatment/Plan Treatment Plan: Continue Plan of Care Treatment Plan: Bed Mobility, Education, Functional Activity [place], Functional Strength, Gait, Safety, Therapeutic Exercise, Transfers Treatment Duration: Dec 24, 2022 Frequency: 6 times per week Estimated Hrs Per Day: .25 hour per day Patient and/or Family Agrees t: Yes Time Time In: 930 Time Out: 954 DATE: Dec 09, 2022 Total Billed Treatment Time: 24 Total Billed Treatment 1 visit EX x 2 24 min SANTIAGO LOAIZA PT Dec 09, 2022 10:47
--- NOTE | 2022-12-09 12:06 | Progress Note - Hospitalist ---
Subjective HPI/CC On Admission Date Seen by Provider: Dec 09, 2022 Subjective/Events-last exam Pt getting cleaned up from BM when I was in room. Spoke with daughter outside of the room. Discussed UA results and need for IV abx to resume. Pt denies any complaints and just says she wants to go home. Objective Exam Vital Signs Vital Signs Date Time Temp Pulse Resp B/P (MAP) Pulse Ox O2 Delivery O2 Flow Rate FiO2 12/09/22 08:56 37.2 77 18 166/79 (108) 94 Room Air 12/07/22 20:00 2.00 Capillary Refill : General Appearance: No Apparent Distress, Chronically ill Respiratory: Lungs Clear Cardiovascular: Regular Rate, Rhythm Gastrointestinal: Normal Bowel Sounds, Soft Neurologic/Psychiatric: Alert, Other (oriented to person and place) Skin: Other Results/Procedures Lab Laboratory Tests 12/09/22 08:00 Patient resulted labs reviewed. Imaging: Reviewed Imaging Report Assessment/Plan Assessment and Plan Assess & Plan/Chief Complaint Recurrent UTI Resumed [place] yesterday Cultures pending Labs without evidence of sepsis Chronic respiratory failure with hypoxia Supplemental oxygen as needed MAT protocol Doing well Delirium Likely dementia CT head with chronic atrophic changes Concern for progression of dementia with COVID- improving Blood cultures likely contaminants Debility PT/OT Discussed SNF placement, social work consulted, appreciate assistance HTN HLD GERD CAD Continue home meds DVT ppx: Lovenox Pyelonephritis, resolved EDITH, resolved Constipation, resolved COVID, resolved KADY KELLY MD Dec 09, 2022 12:06
[2022-12-09] MEDS: MAGNESIUM 1 GM/100 ML IVPB 100 ML IV SCH ×3 (12:09→13:38)
[2022-12-09] MEDS: ENOXAPARIN 40 MG/0.4 ML SYRINGE SC SCH (13:37)
[2022-12-09] MEDS: MAGNESIUM OXIDE 400 MG TABLET PO SCH (19:41)
[2022-12-09] MEDS: LACTOBACILLUS ACIDOPHILUS (PROBIOTIC) CAPSULE PO SCH (19:41)
[2022-12-09] MEDS: ASPIRIN enteric coated 81MG TABLET PO SCH (19:41)
[2022-12-09] MEDS: FENOFIBRATE, Micronized 134 MG CAPSULE PO SCH (19:41)
[2022-12-09] MEDS: THERAPEUTIC MULTIVITAMIN W/MINERALS TABLET PO SCH (19:41)
[2022-12-09] MEDS: MELATONIN 3 MG TABLET PO PRN (19:42)
[2022-12-09 21:55] VITALS: BP 155/85
[2022-12-10] MEDS: MEROPENEM 500 MG/NS 100 ML IVPB IV SCH ×6 (00:58→16:52)
[2022-12-10 08:26] VITALS: BP 133/68
[2022-12-10 08:41] LABS: MAGNESIUM 1.9 MG/DL (1.6-2.4); POTASSIUM 3.8 MMOL/L (3.6-5.0)
[2022-12-10] MEDS: LOSARTAN 100 MG TABLET PO SCH (10:01)
[2022-12-10] MEDS: PANTOPRAZOLE 40 MG TABLET PO SCH (10:01)
[2022-12-10] MEDS: POTASSIUM CHLORIDE 10 MEQ TABLET PO SCH (10:01)
[2022-12-10] MEDS: hydrALAZINE 25 MG TABLET PO SCH ×3 (10:01→20:55)
[2022-12-10] MEDS: CLOPIDOGREL 75 MG TABLET PO SCH (10:01)
[2022-12-10] MEDS: CALCIUM POLYCARBOPHIL 625 MG TABLET PO SCH (10:01)
--- NOTE | 2022-12-10 10:14 | Physical Therapy Daily Note ---
PT Daily Note-Current Subjective Patient lying supine in bed upon PT arrival, daughter in the room. Patient unable to rate pain verbally but shakes her head "no". Pain Section J - Health Conditions 1. Rarely or not at all 2. Occasionally 3. Frequently 4. Almost constantly 8. Unable to answer Pain Effect on Sleep: 8 Pain Interference with Therapy: 8 Pain Interference w/Day-to-Day: 8 Transfers SCALE: Activities may be completed with or without assistive devices. 8-Ffyeyvmkyx-gsyfgyx completes the activity by him/herself with no assistance from a helper. 5-Set-up or Clean-up Assistance-helper sets up or cleans up; patient completes activity. [place] assists only prior to or following the activity. 4-Supervision or Touching Assistance-helper provides verbal cues and/or touching/steadying and/or contact guard assistance as patient completes activity. Assistance may be provided throughout the activity or intermittently. 3-Partial/Moderate Assistance-helper does LESS THAN HALF the effort. [place] lifts, holds or supports trunk or limbs, but provides less than half the effort. 2-Substantial/Maximal Assistance-helper does MORE THAN HALF the effort. [place] lifts or holds trunk or limbs and provides more than half the effort. 2-Quftroufp-wdvrfw does ALL the effort. Patient does none of the effort to complete the activity. Or, the assistance of 2 or more helpers is required for the patient to complete the activity. If activity was not attempted, code reason: 7-Patient Refused. 9-Not Applicable-not attempted and the patient did not perform the activity before the current illness, exacerbation or injury. 10-Not Attempted due to Environmental Limitations-(lack of equipment, weather restraints, etc.). 88-Not Attempted due to Medical Conditions or Safety Concerns. Roll Left & Right (QC): 2 Sit to Lying (QC): 1 Lying to Sitting/Side of Bed(Q: 1 Sit to Stand (QC): 1 Chair/Lje-bj-Txzxz Xfer(QC): 1 Weight Bearing Right Lower Extremity: Right Full Weight Bearing Left Lower Extremity: Left Full Weight Bearing Gait Training Does the Patient Walk?: No and Walking Goal IS indicated Exercises Supine Ex: Ankle pumps, Quad Set, Heel Slides, Short Arc Quads, Straight leg raise, Hip abd/add Supine Reps: 20 Assessment Current Status: Fair Progress Patient attempted to participate more this visit. Performed LE AROM/AAROM as listed above. Patient performed all bed mobility and transfers with max to total A. Patient able to sit at the edge of the bed ~3 minutes without assist. Patient requires total A for SPT to the chair. Patient in chair post treatment with all needs met, nursing notified, call light in hand and family in the room with chair alarm activated. PT Detention Goals Detention Goals PT Bridge Mechanic Goals Time Frame: Dec 24, 2022 Roll Left & Right (QC): 4 Sit to Lying (QC): 4 Lying-Sitting on Side/Bed(QC): 4 Sit to Stand (QC): 4 Chair/Flf-gd-Bvglx Xfer(QC): 4 Toilet Transfer (QC): 4 Car Transfer (QC): 4 Does the Patient Walk: Yes Walk 10 feet (QC): 4 Walk 50ft with 2 Turns (QC): 4 Walk 150 ft (QC): 4 Walking 10ft on Uneven Surface: 4 1 Step (curb) (QC): 4 4 Steps (QC): 9 12 Steps (QC): 9 Picking up an Object (QC): 9 Wheel 50 feet with 2 turns (QC: 9 Type: N/A Wheel 150 feet: 9 Type: N/A PT Plan Treatment/Plan Treatment Plan: Continue Plan of Care Treatment Plan: Bed Mobility, Education, Functional Activity [place], Functional Strength, Gait, Safety, Therapeutic Exercise, Transfers Treatment Duration: Dec 24, 2022 Frequency: 6 times per week Estimated Hrs Per Day: .25 hour per day Patient and/or Family Agrees t: Yes Safety Risks/Education Patient Education: Transfer Techniques Teaching Recipient: Patient Teaching Methods: Demonstration, Discussion Response to Teaching: Verbalize Understanding, Return Demonstration Time Time In: 844 Time Out: 910 DATE: Dec 10, 2022 Total Billed Treatment Time: 26 Total Billed Treatment Visit, EX, VIVIENNE AWAD PT Dec 10, 2022 10:14
[2022-12-10] MEDS: POTASSIUM CL 10MEQ/50ML IVPB 50 ML IV SCH (10:19)
[2022-12-10] MEDS: MAGNESIUM 1 GM/100 ML IVPB 100 ML IV SCH ×3 (10:25→12:04)
[2022-12-10] MEDS: POTASSIUM CHLORIDE 20 MEQ TABLET PO SCH (10:25)
[2022-12-10] MEDS ORDERED: POTASSIUM CHLORIDE 20 MEQ TABLET PO NR (11:00)
[2022-12-10] MEDS: ENOXAPARIN 40 MG/0.4 ML SYRINGE SC SCH (11:08)
[2022-12-10] MEDS: ACETAMINOPHEN 325 MG TABLET PO PRN ×2 (13:53→18:44)
[2022-12-10 19:51] VITALS: BP 144/61
[2022-12-10] MEDS: ASPIRIN enteric coated 81MG TABLET PO SCH (20:55)
[2022-12-10] MEDS: MELATONIN 3 MG TABLET PO PRN (20:55)
[2022-12-10] MEDS: MAGNESIUM OXIDE 400 MG TABLET PO SCH (20:55)
[2022-12-10] MEDS: LACTOBACILLUS ACIDOPHILUS (PROBIOTIC) CAPSULE PO SCH (20:55)
[2022-12-10] MEDS: FENOFIBRATE, Micronized 134 MG CAPSULE PO SCH (20:55)
[2022-12-10] MEDS: THERAPEUTIC MULTIVITAMIN W/MINERALS TABLET PO SCH (20:55)
[2022-12-11] MEDS: MEROPENEM 500 MG/NS 100 ML IVPB IV SCH ×6 (01:32→16:34)
[2022-12-11 08:00] VITALS: BP 134/66
[2022-12-11 08:27] LABS: MAGNESIUM 1.8 MG/DL (1.6-2.4)
[2022-12-11] MEDS: CLOPIDOGREL 75 MG TABLET PO SCH (09:06)
[2022-12-11] MEDS: LOSARTAN 100 MG TABLET PO SCH (09:06)
[2022-12-11] MEDS: CALCIUM POLYCARBOPHIL 625 MG TABLET PO SCH (09:06)
[2022-12-11] MEDS: hydrALAZINE 25 MG TABLET PO SCH ×3 (09:06→21:09)
[2022-12-11] MEDS: PANTOPRAZOLE 40 MG TABLET PO SCH (09:06)
[2022-12-11] MEDS: POTASSIUM CHLORIDE 10 MEQ TABLET PO SCH (09:06)
[2022-12-11] MEDS: ACETAMINOPHEN 325 MG TABLET PO PRN ×2 (09:07→16:39)
[2022-12-11] MEDS: POTASSIUM CL 10MEQ/50ML IVPB 50 ML IV SCH (09:31)
[2022-12-11] MEDS: POTASSIUM CHLORIDE 20 MEQ TABLET PO SCH (09:31)
[2022-12-11] MEDS: MAGNESIUM 1 GM/100 ML IVPB 100 ML IV SCH ×3 (09:32→10:53)
[2022-12-11] MEDS: ENOXAPARIN 40 MG/0.4 ML SYRINGE SC SCH (12:56)
[2022-12-11 20:47] VITALS: BP 158/70
[2022-12-11] MEDS: MAGNESIUM OXIDE 400 MG TABLET PO SCH (21:09)
[2022-12-11] MEDS: ASPIRIN enteric coated 81MG TABLET PO SCH (21:09)
[2022-12-11] MEDS: LACTOBACILLUS ACIDOPHILUS (PROBIOTIC) CAPSULE PO SCH (21:09)
[2022-12-11] MEDS: FENOFIBRATE, Micronized 134 MG CAPSULE PO SCH (21:09)
[2022-12-11] MEDS: THERAPEUTIC MULTIVITAMIN W/MINERALS TABLET PO SCH (21:09)
[2022-12-12] MEDS: MEROPENEM 500 MG/NS 100 ML IVPB IV SCH ×6 (00:43→15:49)
[2022-12-12] MEDS: POTASSIUM CHLORIDE 20 MEQ TABLET PO SCH (06:00)
[2022-12-12] MEDS: POTASSIUM CL 10MEQ/50ML IVPB 50 ML IV SCH (06:00)
[2022-12-12] MEDS: MAGNESIUM 1 GM/100 ML IVPB 100 ML IV SCH ×3 (06:00→08:05)
[2022-12-12] MEDS: hydrALAZINE 25 MG TABLET PO SCH ×3 (08:06→21:05)
[2022-12-12] MEDS: CLOPIDOGREL 75 MG TABLET PO SCH (08:06)
[2022-12-12] MEDS: LOSARTAN 100 MG TABLET PO SCH (08:06)
[2022-12-12] MEDS: PANTOPRAZOLE 40 MG TABLET PO SCH (08:06)
[2022-12-12] MEDS: POTASSIUM CHLORIDE 10 MEQ TABLET PO SCH (08:06)
[2022-12-12] MEDS: CALCIUM POLYCARBOPHIL 625 MG TABLET PO SCH (08:06)
[2022-12-12 08:44] VITALS: BP 180/73
[2022-12-12] MEDS: ACETAMINOPHEN 325 MG TABLET PO PRN ×2 (08:51→16:05)
--- NOTE | 2022-12-12 09:57 | Physical Therapy Daily Note ---
PT Daily Note-Current Subjective Patient positioned down toward foot of bed with family present attempting to feed her in a compromised position. Therapy educated them on importance of correct position to prevent possible aspiration. Pain Section J - Health Conditions 1. Rarely or not at all 2. Occasionally 3. Frequently 4. Almost constantly 8. Unable to answer Pain Effect on Sleep: 8 Pain Interference with Therapy: 8 Pain Interference w/Day-to-Day: 8 Mental Status Patient Orientation: Confused Transfers SCALE: Activities may be completed with or without assistive devices. 3-Skfnfyzlfd-nqjfoxj completes the activity by him/herself with no assistance from a helper. 5-Set-up or Clean-up Assistance-helper sets up or cleans up; patient completes activity. [place] assists only prior to or following the activity. 4-Supervision or Touching Assistance-helper provides verbal cues and/or touching/steadying and/or contact guard assistance as patient completes activity. Assistance may be provided throughout the activity or intermittently. 3-Partial/Moderate Assistance-helper does LESS THAN HALF the effort. [place] lifts, holds or supports trunk or limbs, but provides less than half the effort. 2-Substantial/Maximal Assistance-helper does MORE THAN HALF the effort. [place] lifts or holds trunk or limbs and provides more than half the effort. 9-Vyucyxufu-zblbbt does ALL the effort. Patient does none of the effort to complete the activity. Or, the assistance of 2 or more helpers is required for the patient to complete the activity. If activity was not attempted, code reason: 7-Patient Refused. 9-Not Applicable-not attempted and the patient did not perform the activity before the current illness, exacerbation or injury. 10-Not Attempted due to Environmental Limitations-(lack of equipment, weather restraints, etc.). 88-Not Attempted due to Medical Conditions or Safety Concerns. Roll Left & Right (QC): 1 (x 2) Lying to Sitting/Side of Bed(Q: 1 (x 2) Sit to Stand (QC): 1 (x 2) Chair/Jux-qt-Ajftd Xfer(QC): 1 (x 2) Weight Bearing Right Lower Extremity: Right Full Weight Bearing Left Lower Extremity: Left Full Weight Bearing Gait Training Does the Patient Walk?: No and Walking Goal IS indicated Exercises Supine Ex: Heel Slides Supine Reps: 15 Seated Therapy Exercises: Ankle pumps, Long arc quads Seated Reps: 15 Assessment Current Status: Poor Progress Patient is more alert and able to follow some simple direction. Patient continues to require dependent assist of 2 with all mobility due to patient's inability to perform. Patient required max to maintain sitting EOB for several minutes. PT Group Home Goals Group Home Goals PT Phytochemistry Professor Goals Time Frame: Dec 24, 2022 Roll Left & Right (QC): 4 Sit to Lying (QC): 4 Lying-Sitting on Side/Bed(QC): 4 Sit to Stand (QC): 4 Chair/Ggo-ye-Zmcbp Xfer(QC): 4 Toilet Transfer (QC): 4 Car Transfer (QC): 4 Does the Patient Walk: Yes Walk 10 feet (QC): 4 Walk 50ft with 2 Turns (QC): 4 Walk 150 ft (QC): 4 Walking 10ft on Uneven Surface: 4 1 Step (curb) (QC): 4 4 Steps (QC): 9 12 Steps (QC): 9 Picking up an Object (QC): 9 Wheel 50 feet with 2 turns (QC: 9 Type: N/A Wheel 150 feet: 9 Type: N/A PT Plan Treatment/Plan Treatment Plan: Continue Plan of Care Treatment Plan: Bed Mobility, Education, Functional Activity [place], Functional Strength, Gait, Safety, Therapeutic Exercise, Transfers Treatment Duration: Dec 24, 2022 Frequency: 6 times per week Estimated Hrs Per Day: .25 hour per day Patient and/or Family Agrees t: Yes Time Time In: 900 Time Out: 918 DATE: Dec 12, 2022 Total Billed Treatment Time: 18 Total Billed Treatment 1 visit EX 18 min SANTIAGO LOAIZA PT Dec 12, 2022 09:57
--- NOTE | 2022-12-12 10:33 | Occupational Ther Daily Note ---
OT Current Status-Daily Note Subjective Patient reclined in bed in compromised position for oral intake, Daughter feeding patient ensure w/ straw. OT has provided multiple education intervention for PO intake position and risks of reclined position. Daughter reports patient is done with meal. OT co-tx w/ PT for bed mobilty, rolling and sitting EOB as well as transfer to recliner form bed. Patient remains dependent transfers. Patient is more verbal and alert however physical components of thery remain dependent for transfers and bed mobility Mental Status/Objective Patient Orientation: Person ( by name on ID tag and family), Confused, Mumbles (ocassional phrases) Attachments: Fatima Catheter ADL-Treatment Following transfer to recliner Recreational therapy time patient completed container of yogurt, reached 3 times for ENSURE w/ straw and replaced on tray, ate one bite w/ feeding provided of cottage cheese and one slice of banana. ([place] for OTR [place]) Therapy Code Descriptions/Definitions Functional [place] Measure: 0=Not Assessed/NA 4=Minimal Assistance 1=Total Assistance 5=Supervision or Setup 2=Maximal Assistance 6=Modified [place] 3=Moderate Assistance 7=Complete IndependenceSCALE: Activities may be completed with or without assistive devices. 0-Yzqjgirren-mcutaeu completes the activity by him/herself with no assistance from a helper. 5-Set-up or Clean-up Assistance-helper sets up or cleans up; patient completes activity. [place] assists only prior to or following the activity. 4-Supervision or Touching Assistance-helper provides verbal cues and/or touching/steadying and/or contact guard assistance as patient completes activity. Assistance may be provided throughout the activity or intermittently. 3-Partial/Moderate Assistance-helper does LESS THAN HALF the effort. [place] lifts, holds or supports trunk or limbs, but provides less than half the effort. 2-Substantial/Maximal Assistance-helper does MORE THAN HALF the effort. [place] lifts or holds trunk or limbs and provides more than half the effort. 7-Rastbrcbf-udxdrx does ALL the effort. Patient does none of the effort to complete the activity. Or, the assistance of 2 or more helpers is required for the patient to complete the activity. If activity was not attempted, code reason: 7-Patient Refused. 9-Not Applicable-not attempted and the patient did not perform the activity before the current illness, exacerbation or injury. 10-Not Attempted due to Environmental Limitations-(lack of equipment, weather restraints, etc.). 88-Not Attempted due to Medical Conditions or Safety Concerns. Eating (QC): 3 Oral Hygiene (QC): 3 Shower/Bathe Self (QC): 3 (OT washed patien backside, armpits an dplaced massege shower shampoo cap on patien, OT performed hair grooming for patient. Patient tolerated sitting upright EOB w/ PT assistance for stability and CORE strengthening. Gurjit holds sudsy wsh clothie in hands but makes no attempt to cleanse face) Upper Body Dressing (QC): 2 (Lifts RUE on command and requires max ROM Asssitance for LUE ROM to insert UE into sleeve. Once positioned tone in LUE decreases adn PROM to AAROM performed for contined ADLS) Lower Body Dressing (QC): 1 (alterantes SLR kicks in recliner however makes no attetmpt to move BLES during bed mobility and linen change) On/Off Footwear: 1 Toileting Hygiene (QC): 1 Toilet Transfer (QC): 1 Other Treatment OT strongly encouraged and educated family on importance of upright position for PO intake, use of recliner to change position. Encouraged family to have patient visually scan objects in room, room tray and reach for food. OT provided multiple interventions for family support to improve patient condition. Daughter asks when patient will walk, OT education for bed mobility, to sitting to stranding before walking is instated Education OT Patient Education: Correct positioning, Exercise program, Instructions to caregiver, Modified ADL techniques, Progress toward Goal/Update tx plan, Purpose of tx/functional activities, Reviewed precautions, Rehab process, Safety issues, Transfer techniques, Use of adapted equipment Teaching Recipient: Patient, Family Response to Teaching: Verbalize Understanding, Reinforcement Needed OT Short Term Goals Short Term Goals Time Frame: Dec 02, 2022 Eatin Oral hygiene: 4 OT Heater Worker Goals Senior Care Goals Time Frame: Dec 16, 2022 Acute change in mental status: 1 Inattention: 2 Disorganized thinkin Altered level of consciousness: 2 (PER DAUGHTER REPORT) Eating (QC): 5 Oral Hygiene (QC): 4 Toileting Hygiene (QC): 3 Shower/Bathe Self (QC): 3 Upper Body Dressing (QC): 4 Lower Body Dressing (QC): 3 On/Off Footwear (QC): 3 1=Demonstrate adherence to instructed precautions during ADL tasks. 2=Patient will verbalize/demonstrate understanding of assistive devices/modifications for ADL. 3=Patient will improve strength/tolerance for activity to enable patient to perform ADL's. OT Education/Plan Problem List/Assessment Assessment: Decreased Activ Tolerance, Decreased Safety Aware, Decreased UE Strength, Dependent Transfers, Impaired Bed Mobility, Impaired Cognition, Impaired Coordination, Impaired Funct Balance, Impaired I ADL's, Impaired Self- Care Skills, Restricted Funct UE ROM Discharge Recommendations Plan/Recommendations: Continue POC Therapy Discharge Recommendati: Post Acute OT Treatment Plan/Plan of Care Treatment,Training & Education: Yes Patient would benefit from OT for education, treatment and training to promote independence in ADL's, mobility, safety and/or upper extremity function for ADL's. Plan of Care: ADL Retraining, Caregiver Training, Cognitive Retraining, Concur rent Therapy, Functional Mobility, Group Exercise/Act as Ind, UE Funct Exercise/Act, UE Neuromus Re-Ed/Coord Treatment Duration: Dec 09, 2022 Frequency: At least 5 of 7 days/Wk (IRF) Estimated Hrs Per Day: .25 hour per day Agreement: Yes Rehab Potential: Guarded Time Start Time: 09:00 Stop Time: 09:15 DATE: Dec 12, 2022 Total Time Billed (hr/min): 15 Billed Treatment Time 4165-6085 [place] ADL 1 visit 15 min MIK MAHMOOD OT Dec 12, 2022 10:33
[2022-12-12] MEDS: ENOXAPARIN 40 MG/0.4 ML SYRINGE SC SCH (12:40)
[2022-12-12 20:04] VITALS: BP 188/82
[2022-12-12] MEDS: LACTOBACILLUS ACIDOPHILUS (PROBIOTIC) CAPSULE PO SCH (21:05)
[2022-12-12] MEDS: FENOFIBRATE, Micronized 134 MG CAPSULE PO SCH (21:05)
[2022-12-12] MEDS: THERAPEUTIC MULTIVITAMIN W/MINERALS TABLET PO SCH (21:05)
[2022-12-12] MEDS: MAGNESIUM OXIDE 400 MG TABLET PO SCH (21:05)
[2022-12-12] MEDS: ASPIRIN enteric coated 81MG TABLET PO SCH (21:05)
[2022-12-13] MEDS: hydrALAZINE INJECTION 20 MG/ML VIAL IV PRN (04:33)
[2022-12-13 06:04] LABS: MAGNESIUM 1.8 MG/DL (1.6-2.4); POTASSIUM 3.8 MMOL/L (3.6-5.0)
[2022-12-13] MEDS: POTASSIUM CHLORIDE 20 MEQ TABLET PO SCH (06:40)
[2022-12-13] MEDS: MAGNESIUM 1 GM/100 ML IVPB 100 ML IV SCH ×3 (06:40→12:21)
[2022-12-13] MEDS: POTASSIUM CL 10MEQ/50ML IVPB 50 ML IV SCH ×3 (06:40→09:11)
[2022-12-13] MEDS: NS IV 500 ML 500 ML IV PRN (06:49)
[2022-12-13 07:52] VITALS: BP 143/56
[2022-12-13] MEDS ORDERED: amLODIPine 5 MG TABLET PO SCH (09:00)
[2022-12-13] MEDS: PANTOPRAZOLE 40 MG TABLET PO SCH (09:13)
[2022-12-13] MEDS: LOSARTAN 100 MG TABLET PO SCH (09:13)
[2022-12-13] MEDS: hydrALAZINE 25 MG TABLET PO SCH ×3 (09:13→20:20)
[2022-12-13] MEDS: CLOPIDOGREL 75 MG TABLET PO SCH (09:13)
[2022-12-13] MEDS: POTASSIUM CHLORIDE 10 MEQ TABLET PO SCH (09:24)
[2022-12-13] MEDS: CALCIUM POLYCARBOPHIL 625 MG TABLET PO SCH (09:24)
[2022-12-13] MEDS: MEROPENEM 500 MG/NS 100 ML IVPB IV SCH ×4 (10:14)
--- NOTE | 2022-12-13 11:05 | Physical Therapy Daily Note ---
PT Daily Note-Current Subjective Patient resistive to participate with therapy. PT/OT cotreat due to high complexity. Pain Section J - Health Conditions 1. Rarely or not at all 2. Occasionally 3. Frequently 4. Almost constantly 8. Unable to answer Pain Effect on Sleep: 8 Pain Interference with Therapy: 8 Pain Interference w/Day-to-Day: 8 Mental Status Patient Orientation: Confused Attachments: Fatima Catheter, IV Transfers SCALE: Activities may be completed with or without assistive devices. 3-Txkwkcdkgq-jkdczgc completes the activity by him/herself with no assistance from a helper. 5-Set-up or Clean-up Assistance-helper sets up or cleans up; patient completes activity. [place] assists only prior to or following the activity. 4-Supervision or Touching Assistance-helper provides verbal cues and/or touching/steadying and/or contact guard assistance as patient completes activity. Assistance may be provided throughout the activity or intermittently. 3-Partial/Moderate Assistance-helper does LESS THAN HALF the effort. [place] lifts, holds or supports trunk or limbs, but provides less than half the effort. 2-Substantial/Maximal Assistance-helper does MORE THAN HALF the effort. [place] lifts or holds trunk or limbs and provides more than half the effort. 4-Iqqpimmxb-nhwrhl does ALL the effort. Patient does none of the effort to complete the activity. Or, the assistance of 2 or more helpers is required for the patient to complete the activity. If activity was not attempted, code reason: 7-Patient Refused. 9-Not Applicable-not attempted and the patient did not perform the activity before the current illness, exacerbation or injury. 10-Not Attempted due to Environmental Limitations-(lack of equipment, weather restraints, etc.). 88-Not Attempted due to Medical Conditions or Safety Concerns. Sit to Stand (QC): 1 (x 2) Chair/Rnr-gu-Rkulm Xfer(QC): 1 (x 2) Weight Bearing Right Lower Extremity: Right Full Weight Bearing Left Lower Extremity: Left Full Weight Bearing Gait Training Distance: 20' Walk 10 feet (QC): 2 Gait Assistive Device: FWW max assist with PT addressing standing balance and gait sequence and OT negotiating FWW for safety/shuffle gait sequence Exercises Seated Therapy Exercises: Ankle pumps (stretching), Long arc quads (with hamstring stretching) Assessment Patient tolerated treatment and did ambulate with max assist of 2. Patient remains confused but alert. PT to increase activity as tolerated by patient. PT Shelter Goals [place] Heater Goals PT [place] Heater Goals Time Frame: Dec 24, 2022 Roll Left & Right (QC): 4 Sit to Lying (QC): 4 Lying-Sitting on Side/Bed(QC): 4 Sit to Stand (QC): 4 Chair/Hni-nn-Guxbf Xfer(QC): 4 Toilet Transfer (QC): 4 Car Transfer (QC): 4 Does the Patient Walk: Yes Walk 10 feet (QC): 4 Walk 50ft with 2 Turns (QC): 4 Walk 150 ft (QC): 4 Walking 10ft on Uneven Surface: 4 1 Step (curb) (QC): 4 4 Steps (QC): 9 12 Steps (QC): 9 Picking up an Object (QC): 9 Wheel 50 feet with 2 turns (QC: 9 Type: N/A Wheel 150 feet: 9 Type: N/A PT Plan Treatment/Plan Treatment Plan: Continue Plan of Care Treatment Plan: Bed Mobility, Education, Functional Activity [place], Functional Strength, Gait, Safety, Therapeutic Exercise, Transfers Treatment Duration: Dec 24, 2022 Frequency: 6 times per week Estimated Hrs Per Day: .25 hour per day Patient and/or Family Agrees t: Yes Time Time In: 954 Time Out: 1015 DATE: Dec 13, 2022 Total Billed Treatment Time: 21 Total Billed Treatment 1 visit FA 21 min SANTIAGO LOAIZA PT Dec 13, 2022 11:05
--- NOTE | 2022-12-13 11:17 | Occupational Ther Daily Note ---
OT Current Status-Daily Note Subjective Patient is more alert and talkative today, responding 75% appropriate conversation and 50% command following. Clarification of PLOF w/ family that in Fall 2021 patient walked at home and managed stairs, fell and resulted in LE fracture. Home health has been treating patient since DC from [facility] last year. Prior to COVID episode patient required assist to transfer and navigate FWW once standing. Moderate assistance w/ ADLS and SBA for feeding and Grooming tasks Mental Status/Objective Patient Orientation: Person ADL-Treatment Patient ambulated w/ therapy today, 2 person for initial transfer and static stance, once balance steady one person for ambulation w/ FWW. Required 2 person sit/stand again once to recliner. In recliner washes face with clothe with set up and VC Therapy Code Descriptions/Definitions Functional [place] Measure: 0=Not Assessed/NA 4=Minimal Assistance 1=Total Assistance 5=Supervision or Setup 2=Maximal Assistance 6=Modified [place] 3=Moderate Assistance 7=Complete IndependenceSCALE: Activities may be completed with or without assistive devices. 5-Jqgharaobv-gyvpgsk completes the activity by him/herself with no assistance from a helper. 5-Set-up or Clean-up Assistance-helper sets up or cleans up; patient completes activity. [place] assists only prior to or following the activity. 4-Supervision or Touching Assistance-helper provides verbal cues and/or touching/steadying and/or contact guard assistance as patient completes activity. Assistance may be provided throughout the activity or intermittently. 3-Partial/Moderate Assistance-helper does LESS THAN HALF the effort. [place] lifts, holds or supports trunk or limbs, but provides less than half the effort. 2-Substantial/Maximal Assistance-helper does MORE THAN HALF the effort. [place] lifts or holds trunk or limbs and provides more than half the effort. 9-Rhvxqrrep-hnwtni does ALL the effort. Patient does none of the effort to compl ete the activity. Or, the assistance of 2 or more helpers is required for the patient to complete the activity. If activity was not attempted, code reason: 7-Patient Refused. 9-Not Applicable-not attempted and the patient did not perform the activity before the current illness, exacerbation or injury. 10-Not Attempted due to Environmental Limitations-(lack of equipment, weather restraints, etc.). 88-Not Attempted due to Medical Conditions or Safety Concerns. Eating (QC): 4 Oral Hygiene (QC): 4 Toilet Transfer (QC): 2 ( moderate of 2) Education OT Patient Education: Correct positioning, Exercise program, Instructions to caregiver, Modified ADL techniques, Progress toward Goal/Update tx plan, Purpose of tx/functional activities, Reviewed precautions, Rehab process, Safety issues, Transfer techniques Teaching Recipient: Patient, Family Teaching Methods: Demonstration, Discussion Response to Teaching: Reinforcement Needed OT Short Term Goals Short Term Goals Time Frame: Dec 02, 2022 Eatin Oral hygiene: 4 OT Archaeologist Goals [facility] Goals Time Frame: Dec 16, 2022 Acute change in mental status: 1 Inattention: 2 Disorganized thinkin Altered level of consciousness: 2 (PER DAUGHTER REPORT) Eating (QC): 5 Oral Hygiene (QC): 4 Toileting Hygiene (QC): 3 Shower/Bathe Self (QC): 3 Upper Body Dressing (QC): 4 Lower Body Dressing (QC): 3 On/Off Footwear (QC): 3 1=Demonstrate adherence to instructed precautions during ADL tasks. 2=Patient will verbalize/demonstrate understanding of assistive devices/modifications for ADL. 3=Patient will improve strength/tolerance for activity to enable patient to perform ADL's. OT Education/Plan Problem List/Assessment Assessment: Decreased Activ Tolerance, Decreased Safety Aware, Decreased UE Strength, Dependent Transfers, Impaired Bed Mobility, Impaired Cognition, Impaired Coordination, Impaired Funct Balance, Impaired Self-Care Skills, Restricted Funct UE ROM Discharge Recommendations Plan/Recommendations: Continue POC Therapy Discharge Recommendati: Post Acute OT Treatment Plan/Plan of Care Treatment,Training & Education: Yes Patient would benefit from OT for education, treatment and training to promote independence in ADL's, mobility, safety and/or upper extremity function for ADL's. Plan of Care: ADL Retraining, Caregiver Training, Cognitive Retraining, Concurrent Therapy, Functional Mobility, Group Exercise/Act as Ind, UE Funct Exercise/Act, UE Neuromus Re-Ed/Coord Treatment Duration: Dec 09, 2022 Frequency: At least 5 of 7 days/Wk (IRF) Estimated Hrs Per Day: .25 hour per day Agreement: Yes Rehab Potential: Guarded Time Start Time: 09:54 Stop Time: 10:15 DATE: Dec 13, 2022 Total Time Billed (hr/min): 19 Billed Treatment Time ADL 19 min CO-TX d/t transfer needs MIK MAHMOOD OT Dec 13, 2022 11:17
[2022-12-13] MEDS: ENOXAPARIN 40 MG/0.4 ML SYRINGE SC SCH (13:22)
--- NOTE | 2022-12-13 15:52 | Progress Note - Hospitalist ---
Subjective HPI/CC On Admission Date Seen by Provider: Dec 13, 2022 Time Seen by Provider: 09:45 Subjective/Events-last exam She is sitting in her chair. She has had breakfast. She has no complaints. Objective Exam Vital Signs Vital Signs Date Time Temp Pulse Resp B/P (MAP) Pulse Ox O2 Delivery O2 Flow Rate FiO2 12/13/22 08:00 Room Air 12/13/22 07:52 36.5 82 17 143/56 (85) 93 12/10/22 20:15 2.00 Capillary Refill : General Appearance: No Apparent Distress, Chronically ill Respiratory: Lungs Clear, No Respiratory Distress Cardiovascular: Regular Rate, Rhythm, No Murmur Gastrointestinal: Normal Bowel Sounds, Soft Extremity: Normal Inspection; No Inflammation Neurologic/Psychiatric: Alert, Motor Weakness Results/Procedures Lab Laboratory Tests 12/13/22 05:35 Patient resulted labs reviewed. Imaging: Reviewed Imaging Report Assessment/Plan Assessment and Plan Assess & Plan/Chief Complaint Delirium Likely dementia CT head with chronic atrophic changes Concern for progression of dementia with COVID- improving Recurrent UTI s/p [place] Chronic respiratory failure with hypoxia Stable on room air, supplemental oxygen as needed at night Debility PT/OT Discussed SNF placement, social work consulted, appreciate assistance HTN HLD GERD CAD Continue home meds DVT ppx: Lovenox Pyelonephritis, resolved EDITH, resolved Constipation, resolved COVID, resolved Diagnosis/Problems Diagnosis/Problems (1) Pyelonephritis Status: Resolved Resolution Date/Time: 11/30/22 @ 16:58 (2) Delirium Status: Acute (3) Metabolic encephalopathy Status: Acute (4) COVID-19 Status: Resolved Resolution Date/Time: 12/13/22 @ 15:52 (5) Advanced age Status: Chronic (6) Poor prognosis Status: Acute (7) EDITH (acute kidney injury) Status: Resolved Resolution Date/Time: 11/30/22 @ 16:58 (8) UTI (urinary tract infection) Status: Resolved Resolution Date/Time: 12/13/22 @ 15:51 GREER MILLAN MD Dec 13, 2022 15:52
[2022-12-13] MEDS: ACETAMINOPHEN 325 MG TABLET PO PRN (17:05)
[2022-12-13 20:03] VITALS: BP 163/73
[2022-12-13] MEDS: MELATONIN 3 MG TABLET PO PRN (20:20)
[2022-12-13] MEDS: ASPIRIN enteric coated 81MG TABLET PO SCH (20:20)
[2022-12-13] MEDS: THERAPEUTIC MULTIVITAMIN W/MINERALS TABLET PO SCH (20:20)
[2022-12-13] MEDS: LACTOBACILLUS ACIDOPHILUS (PROBIOTIC) CAPSULE PO SCH (20:20)
[2022-12-13] MEDS: FENOFIBRATE, Micronized 134 MG CAPSULE PO SCH (20:20)
[2022-12-13] MEDS: MAGNESIUM OXIDE 400 MG TABLET PO SCH (20:20)
[2022-12-14 08:03] VITALS: BP 180/80
[2022-12-14] MEDS: CALCIUM POLYCARBOPHIL 625 MG TABLET PO SCH (08:28)
[2022-12-14] MEDS: POTASSIUM CHLORIDE 10 MEQ TABLET PO SCH (08:28)
[2022-12-14] MEDS: CLOPIDOGREL 75 MG TABLET PO SCH (08:29)
[2022-12-14] MEDS: hydrALAZINE 25 MG TABLET PO SCH ×3 (08:29→20:10)
[2022-12-14] MEDS: amLODIPine 5 MG TABLET PO SCH (08:29)
[2022-12-14] MEDS: PANTOPRAZOLE 40 MG TABLET PO SCH (08:29)
[2022-12-14] MEDS: LOSARTAN 100 MG TABLET PO SCH (08:29)
[2022-12-14 10:03] VITALS: BP 120/66
--- NOTE | 2022-12-14 11:20 | Physical Therapy Daily Note ---
PT Daily Note-Current Subjective Patient sitting in chair upon PT arrival, agreeable to treatment and wants to get back to bed. Patient rates pain at 0/10 currently. Pain Section J - Health Conditions 1. Rarely or not at all 2. Occasionally 3. Frequently 4. Almost constantly 8. Unable to answer Pain Effect on Sleep: 8 Pain Interference with Therapy: 8 Pain Interference w/Day-to-Day: 8 Mental Status Patient Orientation: Person Transfers SCALE: Activities may be completed with or without assistive devices. 4-Jshyyfpssj-ouiirfg completes the activity by him/herself with no assistance from a helper. 5-Set-up or Clean-up Assistance-helper sets up or cleans up; patient completes activity. [place] assists only prior to or following the activity. 4-Supervision or Touching Assistance-helper provides verbal cues and/or touching /steadying and/or contact guard assistance as patient completes activity. Assistance may be provided throughout the activity or intermittently. 3-Partial/Moderate Assistance-helper does LESS THAN HALF the effort. [place] lifts, holds or supports trunk or limbs, but provides less than half the effort. 2-Substantial/Maximal Assistance-helper does MORE THAN HALF the effort. [place] lifts or holds trunk or limbs and provides more than half the effort. 0-Ztioecmjj-pdzjws does ALL the effort. Patient does none of the effort to complete the activity. Or, the assistance of 2 or more helpers is required for the patient to complete the activity. If activity was not attempted, code reason: 7-Patient Refused. 9-Not Applicable-not attempted and the patient did not perform the activity before the current illness, exacerbation or injury. 10-Not Attempted due to Environmental Limitations-(lack of equipment, weather restraints, etc.). 88-Not Attempted due to Medical Conditions or Safety Concerns. Roll Left & Right (QC): 2 Sit to Lying (QC): 2 Lying to Sitting/Side of Bed(Q: 2 Sit to Stand (QC): 3 Chair/Vrr-lk-Hqkwp Xfer(QC): 3 Toilet Transfer (QC): 3 Weight Bearing Right Lower Extremity: Right Full Weight Bearing Left Lower Extremity: Left Full Weight Bearing Gait Training Does the Patient Walk?: Yes Distance: 15' x 2 Walk 10 feet (QC): 3 Gait Assistive Device: FWW Assessment Current Status: Fair Progress Patient requires max a for bed mobility and mod A for transfers. Patient ambulates to the BR with FWW, with mod a for progression. Patient incontinent of BE upon standing up from chair. Patient requires max a x 2 for sit to stand and total A for cleaning. Patient in bed post treatment with all needs met, nursing notified, call light in reach and family in the room. PT Senior Care Goals Senior Care Goals PT Hod Carrier Goals Time Frame: Dec 24, 2022 Roll Left & Right (QC): 4 Sit to Lying (QC): 4 Lying-Sitting on Side/Bed(QC): 4 Sit to Stand (QC): 4 Chair/Idw-og-Hoppv Xfer(QC): 4 Toilet Transfer (QC): 4 Car Transfer (QC): 4 Does the Patient Walk: Yes Walk 10 feet (QC): 4 Walk 50ft with 2 Turns (QC): 4 Walk 150 ft (QC): 4 Walking 10ft on Uneven Surface: 4 1 Step (curb) (QC): 4 4 Steps (QC): 9 12 Steps (QC): 9 Picking up an Object (QC): 9 Wheel 50 feet with 2 turns (QC: 9 Type: N/A Wheel 150 feet: 9 Type: N/A PT Plan Treatment/Plan Treatment Plan: Continue Plan of Care Treatment Plan: Bed Mobility, Education, Functional Activity [place], Functional Strength, Gait, Safety, Therapeutic Exercise, Transfers Treatment Duration: Dec 24, 2022 Frequency: 6 times per week Estimated Hrs Per Day: .25 hour per day Patient and/or Family Agrees t: Yes Safety Risks/Education Patient Education: Gait Training, Transfer Techniques Teaching Recipient: Patient Teaching Methods: Demonstration, Discussion Response to Teaching: Reinforcement Needed Time Time In: 1105 Time Out: 1117 DATE: Dec 14, 2022 Total Billed Treatment Time: 12 Total Billed Treatment Visit, GT VIVIENNE WHALEN PT Dec 14, 2022 11:20
[2022-12-14] MEDS: ENOXAPARIN 40 MG/0.4 ML SYRINGE SC SCH (13:18)
--- NOTE | 2022-12-14 14:51 | Occupational Ther Daily Note ---
OT Current Status-Daily Note Subjective PATIENT RESTING COMFORTABLY W/ FAMILY AT BEDSIDE Mental Status/Objective Patient Orientation: Person ADL-Treatment Therapy Code Descriptions/Definitions Functional [place] Measure: 0=Not Assessed/NA 4=Minimal Assistance 1=Total Assistance 5=Supervision or Setup 2=Maximal Assistance 6=Modified [place] 3=Moderate Assistance 7=Complete IndependenceSCALE: Activities may be completed with or without assistive devices. 8-Ylunannkgw-fawiyaw completes the activity by him/herself with no assistance from a helper. 5-Set-up or Clean-up Assistance-helper sets up or cleans up; patient completes activity. [place] assists only prior to or following the activity. 4-Supervision or Touching Assistance-helper provides verbal cues and/or touching/steadying and/or contact guard assistance as patient completes activity. Assistance may be provided throughout the activity or intermittently. 3-Partial/Moderate Assistance-helper does LESS THAN HALF the effort. [place] lifts, holds or supports trunk or limbs, but provides less than half the effort. 2-Substantial/Maximal Assistance-helper does MORE THAN HALF the effort. [place] lifts or holds trunk or limbs and provides more than half the effort. 0-Dvjcofccn-xsueyt does ALL the effort. Patient does none of the effort to complete the activity. Or, the assistance of 2 or more helpers is required for the patient to complete the activity. If activity was not attempted, code reason: 7-Patient Refused. 9-Not Applicable-not attempted and the patient did not perform the activity before the current illness, exacerbation or injury. 10-Not Attempted due to Environmental Limitations-(lack of equipment, weather restraints, etc.). 88-Not Attempted due to Medical Conditions or Safety Concerns. Other Treatment INITIAL INTERVENTION FOR SESSION THERAPY BAND AND MM BUILDING. ON ARRIVAL PATIENT TONE IN BUES, TIGHTLY GUARDED AND DIFFICULT YO RELEASE AND FACILITATE STRENGTHENING. OT PERFORMED VIBRATION TO LUE AN LLE TO REDUCE TONE AND RELAX MM, STATIC STRETCHING PERFORMED TO REDUCE CONTRACTURE RISK Education OT Patient Education: Disease process, Exercise program, Progress toward Goal/Update tx plan, Purpose of tx/functional activities, Safety issues, Transfer techniques, Use of adapted equipment Teaching Recipient: Patient, Family Teaching Methods: Demonstration, Discussion Response to Teaching: Return Demonstration, Reinforcement Needed OT Short Term Goals Short Term Goals Time Frame: Dec 02, 2022 Eatin Oral hygiene: 4 OT Senior Business Manager Goals [facility] Goals Time Frame: Dec 16, 2022 Acute change in mental status: 1 Inattention: 2 Disorganized thinkin Altered level of consciousness: 2 (PER DAUGHTER REPORT) Eating (QC): 5 Oral Hygiene (QC): 4 Toileting Hygiene (QC): 3 Shower/Bathe Self (QC): 3 Upper Body Dressing (QC): 4 Lower Body Dressing (QC): 3 On/Off Footwear (QC): 3 1=Demonstrate adherence to instructed precautions during ADL tasks. 2=Patient will verbalize/demonstrate understanding of assistive devices/m odifications for ADL. 3=Patient will improve strength/tolerance for activity to enable patient to perform ADL's. OT Education/Plan Problem List/Assessment Assessment: Decreased Activ Tolerance, Decreased Safety Aware, Decreased UE Strength, Impaired Bed Mobility, Impaired Coordination, Impaired I ADL's, Impaired Self-Care Skills Discharge Recommendations Plan/Recommendations: Continue POC Therapy Discharge Recommendati: Post Acute OT Treatment Plan/Plan of Care Treatment,Training & Education: Yes Patient would benefit from OT for education, treatment and training to promote independence in ADL's, mobility, safety and/or upper extremity function for ADL's. Plan of Care: ADL Retraining, Caregiver Training, Cognitive Retraining, Co ncurrent Therapy, Functional Mobility, Group Exercise/Act as Ind, UE Funct Exercise/Act, UE Neuromus Re-Ed/Coord Treatment Duration: Dec 09, 2022 Frequency: At least 5 of 7 days/Wk (IRF) Estimated Hrs Per Day: .25 hour per day Agreement: Yes Rehab Potential: Guarded Time Start Time: 13:20 Stop Time: 13:50 DATE: Dec 14, 2022 Total Time Billed (hr/min): 30 Billed Treatment Time EX 30 MIN MIK MAHMOOD OT Dec 14, 2022 14:51
[2022-12-14 19:23] VITALS: BP 126/62
[2022-12-14] MEDS: ASPIRIN enteric coated 81MG TABLET PO SCH (20:10)
[2022-12-14] MEDS: THERAPEUTIC MULTIVITAMIN W/MINERALS TABLET PO SCH (20:10)
[2022-12-14] MEDS: FENOFIBRATE, Micronized 134 MG CAPSULE PO SCH (20:10)
[2022-12-14] MEDS: LACTOBACILLUS ACIDOPHILUS (PROBIOTIC) CAPSULE PO SCH (20:10)
[2022-12-14] MEDS: MAGNESIUM OXIDE 400 MG TABLET PO SCH (20:10)
[2022-12-14] MEDS: MELATONIN 3 MG TABLET PO PRN (20:10)
[2022-12-15 07:42] VITALS: BP 138/61
[2022-12-15] MEDS: CLOPIDOGREL 75 MG TABLET PO SCH (08:34)
[2022-12-15] MEDS: POTASSIUM CHLORIDE 10 MEQ TABLET PO SCH (08:34)
[2022-12-15] MEDS: LOSARTAN 100 MG TABLET PO SCH (08:34)
[2022-12-15] MEDS: CALCIUM POLYCARBOPHIL 625 MG TABLET PO SCH (08:35)
[2022-12-15] MEDS: amLODIPine 5 MG TABLET PO SCH (08:35)
[2022-12-15] MEDS: hydrALAZINE 25 MG TABLET PO SCH ×3 (08:35→20:42)
[2022-12-15] MEDS: PANTOPRAZOLE 40 MG TABLET PO SCH (08:35)
[2022-12-15] MEDS: ENOXAPARIN 40 MG/0.4 ML SYRINGE SC SCH (12:17)
--- NOTE | 2022-12-15 14:38 | Physical Therapy Daily Note ---
PT Daily Note-Current Subjective Patient agrees to PT. Pain Section J - Health Conditions 1. Rarely or not at all 2. Occasionally 3. Frequently 4. Almost constantly 8. Unable to answer Pain Effect on Sleep: 8 Pain Interference with Therapy: 8 Pain Interference w/Day-to-Day: 8 Transfers SCALE: Activities may be completed with or without assistive devices. 4-Peclkvzgnl-oafvkrs completes the activity by him/herself with no assistance from a helper. 5-Set-up or Clean-up Assistance-helper sets up or cleans up; patient completes activity. [place] assists only prior to or following the activity. 4-Supervision or Touching Assistance-helper provides verbal cues and/or touching/steadying and/or contact guard assistance as patient completes activity. Assistance may be provided throughout the activity or intermittently. 3-Partial/Moderate Assistance-helper does LESS THAN HALF the effort. [place] lifts, holds or supports trunk or limbs, but provides less than half the effort. 2-Substantial/Maximal Assistance-helper does MORE THAN HALF the effort. [place] lifts or holds trunk or limbs and provides more than half the effort. 9-Rbrqpztkh-ageoyu does ALL the effort. Patient does none of the effort to complete the activity. Or, the assistance of 2 or more helpers is required for the patient to complete the activity. If activity was not attempted, code reason: 7-Patient Refused. 9-Not Applicable-not attempted and the patient did not perform the activity before the current illness, exacerbation or injury. 10-Not Attempted due to Environmental Limitations-(lack of equipment, weather restraints, etc.). 88-Not Attempted due to Medical Conditions or Safety Concerns. Sit to Stand (QC): 3 Weight Bearing Right Lower Extremity: Right Full Weight Bearing Left Lower Extremity: Left Full Weight Bearing Gait Training Distance: 50' Walk 10 feet (QC): 3 Walk 50 ft with 2 Turns(QC): 3 Gait Assistive Device: FWW trunk flexed posture/shuffle gait sequence Assessment Patient improving with treatment plan and remains up in recliner with family present. Patient ambulated 50' with FWW mod assist. PT Photoengraving Photographer Goals [facility] Goals PT Photoengraving Photographer Goals Time Frame: Dec 24, 2022 Roll Left & Right (QC): 4 Sit to Lying (QC): 4 Lying-Sitting on Side/Bed(QC): 4 Sit to Stand (QC): 4 Chair/Xhg-oz-[place] Xfer(QC): 4 Toilet Transfer (QC): 4 Car Transfer (QC): 4 Does the Patient Walk: Yes Walk 10 feet (QC): 4 Walk 50ft with 2 Turns (QC): 4 Walk 150 ft (QC): 4 Walking 10ft on Uneven Surface: 4 1 Step (curb) (QC): 4 4 Steps (QC): 9 12 Steps (QC): 9 Picking up an Object (QC): 9 Wheel 50 feet with 2 turns (QC: 9 Type: N/A Wheel 150 feet: 9 Type: N/A PT Plan Treatment/Plan Treatment Plan: Continue Plan of Care Treatment Plan: Bed Mobility, Education, Functional Activity [place], Functional Strength, Gait, Safety, Therapeutic Exercise, Transfers Treatment Duration: Dec 24, 2022 Frequency: 6 times per week Estimated Hrs Per Day: .25 hour per day Patient and/or Family Agrees t: Yes Time Time In: 1345 Time Out: 1400 DATE: Dec 15, 2022 Total Billed Treatment Time: 15 Total Billed Treatment 1 visit GT 15 min SANTIAGO LOAIZA PT Dec 15, 2022 14:38
--- NOTE | 2022-12-15 15:03 | Occupational Ther Daily Note ---
OT Current Status-Daily Note Subjective Reclined in bed w/ food tray over top of bed. OT assessed room to transfer patient to recliner for improved feeding Mental Status/Objective Patient Orientation: Person, Place Attachments: Fatima Catheter ADL-Treatment Combined butter and sweet/sour sauce to increase flavor and smooth textured RICE and vegetables. Patient drink all of COKE canand 1/2 of ensure, reaches for spoon 3 times and is unable to produce sufficient hand eye coordination to grasp spoon. Holds can appropriately however misses edge of food tray when returning can Therapy Code Descriptions/Definitions Functional [place] Measure: 0=Not Assessed/NA 4=Minimal Assistance 1=Total Assistance 5=Supervision or Setup 2=Maximal Assistance 6=Modified [place] 3=Moderate Assistance 7=Complete IndependenceSCALE: Activities may be completed with or without assistive devices. 0-Wubdnrkptu-nuvmrql completes the activity by him/herself with no assistance from a helper. 5-Set-up or Clean-up Assistance-helper sets up or cleans up; patient completes activity. [place] assists only prior to or following the activity. 4-Supervision or Touching Assistance-helper provides verbal cues and/or touching/steadying and/or contact guard assistance as patient completes activity. Assistance may be provided throughout the activity or intermittently. 3-Partial/Moderate Assistance-helper does LESS THAN HALF the effort. [place] lifts, holds or supports trunk or limbs, but provides less than half the effort. 2-Substantial/Maximal Assistance-helper does MORE THAN HALF the effort. [place] lifts or holds trunk or limbs and provides more than half the effort. 4-Rqygyglcy-cxzkhu does ALL the effort. Patient does none of the effort to complete the activity. Or, the assistance of 2 or more helpers is required for the patient to complete the activity. If activity was not attempted, code reason: 7-Patient Refused. 9-Not Applicable-not attempted and the patient did not perform the activity before the current illness, exacerbation or injury. 10-Not Attempted due to Environmental Limitations-(lack of equipment, weather restraints, etc.). 88-Not Attempted due to Medical Conditions or Safety Concerns. Eating (QC): 4 Oral Hygiene (QC): 3 Education OT Patient Education: Correct positioning, Modified ADL techniques, Progress toward Goal/Update tx plan, Purpose of tx/functional activities, Reviewed precautions, Rehab process, Safety issues, Transfer techniques (reretition sit/stands for BLE stregnth, sequence recall), Use of adapted equipment Teaching Recipient: Patient, Family Teaching Methods: Demonstration Response to Teaching: Unable to Return Demonstration, Reinforcement Needed OT Short Term Goals Short Term Goals Time Frame: Dec 02, 2022 Eatin Oral hygiene: 4 OT Custodial Goals Dry Press Operator Helper Goals Time Frame: Dec 16, 2022 Acute change in mental status: 1 Inattention: 2 Disorganized thinkin Altered level of consciousness: 2 (PER DAUGHTER REPORT) Eating (QC): 5 Oral Hygiene (QC): 4 Toileting Hygiene (QC): 3 Shower/Bathe Self (QC): 3 Upper Body Dressing (QC): 4 Lower Body Dressing (QC): 3 On/Off Footwear (QC): 3 1=Demonstrate adherence to instructed precautions during ADL tasks. 2=Patient will verbalize/demonstrate understanding of assistive devices/modifications for ADL. 3=Patient will improve strength/tolerance for activity to enable patient to perform ADL's. OT Education/Plan Problem List/Assessment Assessment: Decreased Activ Tolerance, Decreased Safety Aware, Decreased UE Strength, Impaired Bed Mobility, Impaired Cognition, Impaired Coordination, Impaired Funct Balance, Impaired Self-Care Skills, Restricted Funct UE ROM Discharge Recommendations Plan/Recommendations: Continue POC Therapy Discharge Recommendati: Post Acute OT Treatment Plan/Plan of Care Treatment,Training & Education: Yes Patient would benefit from OT for education, treatment and training to promote independence in ADL's, mobility, safety and/or upper extremity function for ADL's. Plan of Care: ADL Retraining, Caregiver Training, Cognitive Retraining, Concurrent Therapy, Functional Mobility, Group Exercise/Act as Ind, UE Funct Exercise/Act, UE Neuromus Re-Ed/Coord Treatment Duration: Dec 09, 2022 Frequency: At least 5 of 7 days/Wk (IRF) Estimated Hrs Per Day: .25 hour per day Agreement: Yes Rehab Potential: Guarded Time Start Time: 13:40 Stop Time: 14:00 DATE: Dec 15, 2022 Total Time Billed (hr/min): 20 Billed Treatment Time 7244-0043 OT treat for ADL eating and utensil use, [id number] COt treat for FWW navigation and transfers MIK MAHMOOD OT Dec 15, 2022 15:03
--- NOTE | 2022-12-15 16:33 | Progress Note - Hospitalist ---
Subjective HPI/CC On Admission Date Seen by Provider: Dec 15, 2022 Time Seen by Provider: 09:30 Subjective/Events-last exam She has no complaints. Objective Exam Vital Signs Vital Signs Date Time Temp Pulse Resp B/P (MAP) Pulse Ox O2 Delivery O2 Flow Rate FiO2 12/15/22 08:00 Room Air 12/15/22 07:42 36.4 60 16 138/61 (86) 98 12/10/22 20:15 2.00 Capillary Refill : General Appearance: No Apparent Distress, Chronically ill Respiratory: Lungs Clear, No Respiratory Distress Cardiovascular: Regular Rate, Rhythm, No Murmur Gastrointestinal: Normal Bowel Sounds, Soft Extremity: Normal Inspection, No Pedal Edema Neurologic/Psychiatric: Alert, Normal Mood/Affect Results/Procedures Lab Patient resulted labs reviewed. Imaging: Reviewed Imaging Report Assessment/Plan Assessment and Plan Assess & Plan/Chief Complaint Delirium Likely dementia CT head with chronic atrophic changes Delirium improving Recurrent UTI s/p [place] Chronic respiratory failure with hypoxia Stable on room air, supplemental oxygen as needed at night Debility PT/OT Continue swing bed HTN HLD GERD CAD Continue home meds DVT ppx: Lovenox Pyelonephritis, resolved EDITH, resolved Constipation, resolved COVID, resolved Diagnosis/Problems Diagnosis/Problems (1) Pyelonephritis Status: Resolved Resolution Date/Time: 11/30/22 @ 16:58 (2) Delirium Status: Acute (3) Metabolic encephalopathy Status: Acute (4) COVID-19 Status: Resolved Resolution Date/Time: 12/13/22 @ 15:52 (5) Advanced age Status: Chronic (6) Poor prognosis Status: Acute (7) EDITH (acute kidney injury) Status: Resolved Resolution Date/Time: 11/30/22 @ 16:58 (8) UTI (urinary tract infection) Status: Resolved Resolution Date/Time: 12/13/22 @ 15:51 (9) Debility Status: Acute GREER MILLAN MD Dec 15, 2022 16:33
[2022-12-15 19:52] VITALS: BP 164/83
[2022-12-15] MEDS: MAGNESIUM OXIDE 400 MG TABLET PO SCH (20:42)
[2022-12-15] MEDS: THERAPEUTIC MULTIVITAMIN W/MINERALS TABLET PO SCH (20:42)
[2022-12-15] MEDS: MELATONIN 3 MG TABLET PO PRN (20:42)
[2022-12-15] MEDS: FENOFIBRATE, Micronized 134 MG CAPSULE PO SCH (20:42)
[2022-12-15] MEDS: LACTOBACILLUS ACIDOPHILUS (PROBIOTIC) CAPSULE PO SCH (20:42)
[2022-12-15] MEDS: ASPIRIN enteric coated 81MG TABLET PO SCH (20:42)
[2022-12-16 08:18] VITALS: BP 144/66
[2022-12-16] MEDS: PANTOPRAZOLE 40 MG TABLET PO SCH (08:39)
[2022-12-16] MEDS: CALCIUM POLYCARBOPHIL 625 MG TABLET PO SCH (08:39)
[2022-12-16] MEDS: ACETAMINOPHEN 325 MG TABLET PO PRN ×2 (08:39→20:28)
[2022-12-16] MEDS: POTASSIUM CHLORIDE 10 MEQ TABLET PO SCH (08:39)
[2022-12-16] MEDS: amLODIPine 5 MG TABLET PO SCH (08:40)
[2022-12-16] MEDS: LOSARTAN 100 MG TABLET PO SCH (08:40)
[2022-12-16] MEDS: hydrALAZINE 25 MG TABLET PO SCH ×3 (08:40→19:50)
[2022-12-16] MEDS: CLOPIDOGREL 75 MG TABLET PO SCH (08:40)
--- NOTE | 2022-12-16 10:16 | Occupational Ther Daily Note ---
OT Current Status-Daily Note Subjective Up in recliner, completed 1/4 of breakfast with assist per family report Mental Status/Objective Patient Orientation: Person ADL-Treatment Brief donned for therapy purposes d/t urine incont w/ standing and ambulation w/ FWW, Brief removed for PU healing, socks replaced twice d/t urine, sponge to lower LEs and feet w/ attention between toes. Patient holds LEs in extension for sponge bating and sock application, patient does not apply socks. Max assist of one to transfer, w/ ambulation second person required to navigate FWW. Static standing in hallways to wave w/ one hand at Dr. Clemens. Patient with increased difficulty navigation to turn Therapy Code Descriptions/Definitions Functional [place] Measure: 0=Not Assessed/NA 4=Minimal Assistance 1=Total Assistance 5=Supervision or Setup 2=Maximal Assistance 6=Modified [place] 3=Moderate Assistance 7=Complete IndependenceSCALE: Activities may be completed with or without assistive devices. 4-Edjqevjzsh-mxvaqgv completes the activity by him/herself with no assistance from a helper. 5-Set-up or Clean-up Assistance-helper sets up or cleans up; patient completes activity. [place] assists only prior to or following the activity. 4-Supervision or Touching Assistance-helper provides verbal cues and/or touching/steadying and/or contact guard assistance as patient completes activity. Assistance may be provided throughout the activity or intermittently. 3-Partial/Moderate Assistance-helper does LESS THAN HALF the effort. [place] lifts, holds or supports trunk or limbs, but provides less than half the effort. 2-Substantial/Maximal Assistance-helper does MORE THAN HALF the effort. [place] lifts or holds trunk or limbs and provides more than half the effort. 3-Fnyukbztb-wcwtgb does ALL the effort. Patient does none of the effort to complete the activity. Or, the assistance of 2 or more helpers is required for the patient to complete the activity. If activity was not attempted, code reason: 7-Patient Refused. 9-Not Applicable-not attempted and the patient did not perform the activity before the current illness, exacerbation or injury. 10-Not Attempted due to Environmental Limitations-(lack of equipment, weather restraints, etc.). 88-Not Attempted due to Medical Conditions or Safety Concerns. Eating (QC): 4 Oral Hygiene (QC): 4 (set up, hand over hand iniation required) Bathing Location: L Lower Leg (including foot), R Lower Leg (including foot) Lower Body Dressing (QC): 1 (one person required to stablize patient , second person for clothing manangement, Patient is min assist to stabilize) On/Off Footwear: 1 Toileting Hygiene (QC): 1 Toilet Transfer (QC): 2 Education OT Patient Education: Disease process, Exercise program, Modified ADL techniques, Progress toward Goal/Update tx plan, Purpose of tx/functional activities, Reviewed precautions, Rehab process, Safety issues, Transfer techniques, Use of adapted equipment Teaching Recipient: Patient, Family Teaching Methods: Demonstration, Discussion Response to Teaching: Verbalize Understanding, Reinforcement Needed OT Short Term Goals Short Term Goals Time Frame: Dec 02, 2022 Eatin Oral hygiene: 4 OT Development Planner Goals [facility]iary Goals Time Frame: Dec 30, 2022 (nitially set for 12/16, extended 12/16/22) Acute change in mental status: 1 Inattention: 2 Disorganized thinkin Altered level of consciousness: 2 (PER DAUGHTER REPORT) Eating (QC): 5 Oral Hygiene (QC): 4 Toileting Hygiene (QC): 3 Shower/Bathe Self (QC): 3 Upper Body Dressing (QC): 4 Lower Body Dressing (QC): 3 On/Off Footwear (QC): 3 1=Demonstrate adherence to instructed precautions during ADL tasks. 2=Patient will verbalize/demonstrate understanding of assistive devices/modifications for ADL. 3=Patient will improve strength/tolerance for activity to enable patient to perform ADL's. OT Education/Plan Problem List/Assessment Assessment: Decreased Activ Tolerance, Decreased Safety Aware, Decreased UE Strength, Impaired Bed Mobility, Impaired Cognition, Impaired Coordination, Impaired Funct Balance, Impaired Self-Care Skills, Restricted Funct UE ROM Discharge Recommendations Plan/Recommendations: Continue POC Therapy Discharge Recommendati: Post Acute OT Treatment Plan/Plan of Care Treatment,Training & Education: Yes Patient would benefit from OT for education, treatment and training to promote independence in ADL's, mobility, safety and/or upper extremity function for ADL's. Plan of Care: ADL Retraining, Caregiver Training, Cognitive Retraining, Concurrent Therapy, Functional Mobility, Group Exercise/Act as Ind, UE Funct Exercise/Act, UE Neuromus Re-Ed/Coord Treatment Duration: Dec 09, 2022 Frequency: At least 5 of 7 days/Wk (IRF) Estimated Hrs Per Day: .25 hour per day Agreement: Yes Rehab Potential: Guarded Sitting in recliner, all needs met Time Start Time: 09:00 Stop Time: 09:25 DATE: Dec 16, 2022 Total Time Billed (hr/min): 25 Billed Treatment Time ADL 25 min, CO TX for safety, balance and patient weakness, second person is required for FWW navigation and standing balance during LB standing ADLS MIK MAHMOOD OT Dec 16, 2022 10:16
--- NOTE | 2022-12-16 10:27 | Physical Therapy Daily Note ---
PT Daily Note-Current Subjective Patient is alert but confused (remains the same). Family present and very attentive. Pain Section J - Health Conditions 1. Rarely or not at all 2. Occasionally 3. Frequently 4. Almost constantly 8. Unable to answer Pain Effect on Sleep: 8 Pain Interference with Therapy: 8 Pain Interference w/Day-to-Day: 8 Mental Status Patient Orientation: Confused Transfers SCALE: Activities may be completed with or without assistive devices. 1-Qyainxzbba-rtdqppl completes the activity by him/herself with no assistance from a helper. 5-Set-up or Clean-up Assistance-helper sets up or cleans up; patient completes activity. [place] assists only prior to or following the activity. 4-Supervision or Touching Assistance-helper provides verbal cues and/or touching/steadying and/or contact guard assistance as patient completes activity. Assistance may be provided throughout the activity or intermittently. 3-Partial/Moderate Assistance-helper does LESS THAN HALF the effort. [place] lifts, holds or supports trunk or limbs, but provides less than half the effort. 2-Substantial/Maximal Assistance-helper does MORE THAN HALF the effort. [place] lifts or holds trunk or limbs and provides more than half the effort. 4-Htcixecom-ttxgwc does ALL the effort. Patient does none of the effort to complete the activity. Or, the assistance of 2 or more helpers is required for the patient to complete the activity. If activity was not attempted, code reason: 7-Patient Refused. 9-Not Applicable-not attempted and the patient did not perform the activity before the current illness, exacerbation or injury. 10-Not Attempted due to Environmental Limitations-(lack of equipment, weather restraints, etc.). 88-Not Attempted due to Medical Conditions or Safety Concerns. Sit to Stand (QC): 2 (x 3 sets due to incontinence of urine requiring dependent assist to cleanse and change) Weight Bearing Right Lower Extremity: Right Full Weight Bearing Left Lower Extremity: Left Full Weight Bearing Gait Training Distance: 100' Walk 10 feet (QC): 1 Walk 50 ft with 2 Turns(QC): 1 Gait Assistive Device: FWW assist of 2 with one to help advance FWW and one for patient's safety and tactile cues to also advance patient with gait. Exercises Seated Therapy Exercises: Ankle pumps, Sit to stand (3 sets), Long arc quads Seated Reps: 15 Assessment Patient tolerated treatment and requires assist of 2 and the skill of 2 therapist to address functional strength and mobility. Per family, patient was requiring assist to perform bed mobility, sit to stand to FWW and ambulation with FWW PLOF. Patient remains hand over hand to place hands properly for all transfers. Patient is confused and is not making significant improvement cognitively to continue to progress with gross motor skills without constant assistance. Patient has improved with ambulation distance, however, requires assist of 2 to perform and complete. PT to reassess next week and address POC with physician, swing bed coordination and OT to determine POC. PT Ad Trafficker Goals Intermediate Goals PT Intermediate Goals Time Frame: Dec 24, 2022 Roll Left & Right (QC): 4 Sit to Lying (QC): 4 Lying-Sitting on Side/Bed(QC): 4 Sit to Stand (QC): 4 Chair/Igq-jv-Iemwf Xfer(QC): 4 Toilet Transfer (QC): 4 Car Transfer (QC): 4 Does the Patient Walk: Yes Walk 10 feet (QC): 4 Walk 50ft with 2 Turns (QC): 4 Walk 150 ft (QC): 4 Walking 10ft on Uneven Surface: 4 1 Step (curb) (QC): 4 4 Steps (QC): 9 12 Steps (QC): 9 Picking up an Object (QC): 9 Wheel 50 feet with 2 turns (QC: 9 Type: N/A Wheel 150 feet: 9 Type: N/A PT Plan Treatment/Plan Treatment Plan: Continue Plan of Care Treatment Plan: Bed Mobility, Education, Functional Activity [place], Functional Strength, Gait, Safety, Therapeutic Exercise, Transfers Treatment Duration: Dec 24, 2022 Frequency: 6 times per week Estimated Hrs Per Day: .25 hour per day Patient and/or Family Agrees t: Yes Time Time In: 900 Time Out: 925 DATE: Dec 16, 2022 Total Billed Treatment Time: 25 Total Billed Treatment 1 visit EX 14 min GT 11 min (cotreat with OT) SANTIAGO LOAIZA PT Dec 16, 2022 10:27
[2022-12-16] MEDS: ENOXAPARIN 40 MG/0.4 ML SYRINGE SC SCH (12:49)
[2022-12-16 19:35] VITALS: BP 180/77
[2022-12-16] MEDS: FENOFIBRATE, Micronized 134 MG CAPSULE PO SCH (19:50)
[2022-12-16] MEDS: THERAPEUTIC MULTIVITAMIN W/MINERALS TABLET PO SCH (19:50)
[2022-12-16] MEDS: LACTOBACILLUS ACIDOPHILUS (PROBIOTIC) CAPSULE PO SCH (19:50)
[2022-12-16] MEDS: MAGNESIUM OXIDE 400 MG TABLET PO SCH (19:50)
[2022-12-16] MEDS: ASPIRIN enteric coated 81MG TABLET PO SCH (19:50)
[2022-12-17 07:02] VITALS: BP 174/70
[2022-12-17] MEDS: CALCIUM POLYCARBOPHIL 625 MG TABLET PO SCH (10:03)
[2022-12-17] MEDS: PANTOPRAZOLE 40 MG TABLET PO SCH (10:03)
[2022-12-17] MEDS: hydrALAZINE 25 MG TABLET PO SCH ×3 (10:04→19:27)
[2022-12-17] MEDS: LOSARTAN 100 MG TABLET PO SCH (10:04)
[2022-12-17] MEDS: amLODIPine 5 MG TABLET PO SCH (10:04)
[2022-12-17] MEDS: CLOPIDOGREL 75 MG TABLET PO SCH (10:05)
[2022-12-17] MEDS: POTASSIUM CHLORIDE 10 MEQ TABLET PO SCH (10:05)
--- NOTE | 2022-12-17 11:22 | Physical Therapy Daily Note ---
PT Daily Note-Current Subjective Pt found lying in bed /c family present upon entry. Agreed to PT. Reports that she is having pain in her R hip. Pain Section J - Health Conditions 1. Rarely or not at all 2. Occasionally 3. Frequently 4. Almost constantly 8. Unable to answer Pain Effect on Sleep: 8 Pain Interference with Therapy: 8 Pain Interference w/Day-to-Day: 8 Mental Status Patient Orientation: Person Transfers SCALE: Activities may be completed with or without assistive devices. 7-Pgiuwomsry-bftbnyb completes the activity by him/herself with no assistance from a helper. 5-Set-up or Clean-up Assistance-helper sets up or cleans up; patient completes activity. [place] assists only prior to or following the activity. 4-Supervision or Touching Assistance-helper provides verbal cues and/or touching/steadying and/or contact guard assistance as patient completes activity. Assistance may be provided throughout the activity or intermittently. 3-Partial/Moderate Assistance-helper does LESS THAN HALF the effort. [place] lifts, holds or supports trunk or limbs, but provides less than half the effort. 2-Substantial/Maximal Assistance-helper does MORE THAN HALF the effort. [place] lifts or holds trunk or limbs and provides more than half the effort. 5-Zldcjijia-zgslwq does ALL the effort. Patient does none of the effort to co mplete the activity. Or, the assistance of 2 or more helpers is required for the patient to complete the activity. If activity was not attempted, code reason: 7-Patient Refused. 9-Not Applicable-not attempted and the patient did not perform the activity before the current illness, exacerbation or injury. 10-Not Attempted due to Environmental Limitations-(lack of equipment, weather restraints, etc.). 88-Not Attempted due to Medical Conditions or Safety Concerns. Sit to Lying (QC): 2 Lying to Sitting/Side of Bed(Q: 2 Sit to Stand (QC): 2 Weight Bearing Right Lower Extremity: Right Full Weight Bearing Left Lower Extremity: Left Full Weight Bearing Gait Training Does the Patient Walk?: Yes Distance: 5 feet x 3 Treatments Seated Therapeutic Exercises x 10 ea (B): - LAQs Assessment Current Status: Fair Progress Pt performs lying to sitting transfer /c MAX assist for LE lowering a trunk lifting. Pt performs sit to stand transfer 3x before attempting to ambulate. Required MAX assist for lifting. Upon rising to standing position pt displays retropulsion and required assistance to stay upright. Pt ambulated 5 feet x 3 /c use of FWW. Performs very slowly and reports increased R hip pain. Pt required MIN assist to stay upright while ambulating and verbal cues for correct posture. After ambulating pt performs sitting to lying transfer /c MAX assist for trunk lowering and LE lifting. Pt left supine in bed post-treatment /c call light in place, family present, and all needs met. Continue to progress pt as tolerated per POC. PT Marine Animal Trainer Goals Long-Term Goals PT Marine Animal Trainer Goals Time Frame: Dec 24, 2022 Roll Left & Right (QC): 4 Sit to Lying (QC): 4 Lying-Sitting on Side/Bed(QC): 4 Sit to Stand (QC): 4 Chair/Fme-ce-Oxioz Xfer(QC): 4 Toilet Transfer (QC): 4 Car Transfer (QC): 4 Does the Patient Walk: Yes Walk 10 feet (QC): 4 Walk 50ft with 2 Turns (QC): 4 Walk 150 ft (QC): 4 Walking 10ft on Uneven Surface: 4 1 Step (curb) (QC): 4 4 Steps (QC): 9 12 Steps (QC): 9 Picking up an Object (QC): 9 Wheel 50 feet with 2 turns (QC: 9 Type: N/A Wheel 150 feet: 9 Type: N/A PT Plan Treatment/Plan Treatment Plan: Continue Plan of Care Treatment Plan: Bed Mobility, Education, Functional Activity [place], Functional Strength, Gait, Safety, Therapeutic Exercise, Transfers Treatment Duration: Dec 24, 2022 Frequency: 6 times per week Estimated Hrs Per Day: .25 hour per day Patient and/or Family Agrees t: Yes Time Time In: 1053 Time Out: 1114 DATE: Dec 17, 2022 Total Billed Treatment Time: 21 Total Billed Treatment 1 visit FA x 1 SPENSER [employer] WORKER Dec 17, 2022 11:21
[2022-12-17] MEDS: ACETAMINOPHEN 325 MG TABLET PO PRN (11:45)
[2022-12-17] MEDS: ENOXAPARIN 40 MG/0.4 ML SYRINGE SC SCH (11:46)
[2022-12-17 13:41] VITALS: BP 137/70
--- NOTE | 2022-12-17 18:36 | Progress Note - Hospitalist ---
Subjective HPI/CC On Admission Date Seen by Provider: Dec 17, 2022 Time Seen by Provider: 11:30 Subjective/Events-last exam She is sitting in bed. She reports no complaints. She was having some leg pain earlier making it difficult to ambulate with therapy. She says her appetite is good and she has been eating. Objective Exam Vital Signs Vital Signs Date Time Temp Pulse Resp B/P (MAP) Pulse Ox O2 Delivery O2 Flow Rate FiO2 12/17/22 13:41 76 18 137/70 (92) 95 Room Air 12/17/22 12:30 36.8 12/16/22 08:52 0.00 Capillary Refill : General Appearance: No Apparent Distress, Chronically ill Respiratory: Lungs Clear, No Respiratory Distress Cardiovascular: Regular Rate, Rhythm, No Edema Gastrointestinal: Normal Bowel Sounds, Soft Extremity: Normal Inspection, No Pedal Edema Neurologic/Psychiatric: Alert, Motor Weakness Results/Procedures Lab Patient resulted labs reviewed. Imaging: Reviewed Imaging Report Assessment/Plan Assessment and Plan Assess & Plan/Chief Complaint Delirium Likely dementia CT head with chronic atrophic changes Delirium improving Chronic respiratory failure with hypoxia Stable on room air, supplemental oxygen as needed at night Debility PT/OT Continue swing bed HTN HLD GERD CAD Continue home meds DVT ppx: Lovenox Pyelonephritis, resolved EDITH, resolved Constipation, resolved COVID, resolved Recurrent UTI, resolved Diagnosis/Problems Diagnosis/Problems (1) Debility Status: Acute (2) Delirium Status: Acute (3) Advanced age Status: Chronic (4) Poor prognosis Status: Acute (5) EDITH (acute kidney injury) Status: Resolved Resolution Date/Time: 11/30/22 @ 16:58 (6) UTI (urinary tract infection) Status: Resolved Resolution Date/Time: 12/13/22 @ 15:51 (7) Pyelonephritis Status: Resolved Resolution Date/Time: 11/30/22 @ 16:58 (8) Metabolic encephalopathy Status: Resolved Resolution Date/Time: 12/17/22 @ 18:36 (9) COVID-19 Status: Resolved Resolution Date/Time: 12/13/22 @ 15:52 GREER MILLAN MD Dec 17, 2022 18:36
[2022-12-17] MEDS: MAGNESIUM OXIDE 400 MG TABLET PO SCH (19:26)
[2022-12-17] MEDS: THERAPEUTIC MULTIVITAMIN W/MINERALS TABLET PO SCH (19:26)
[2022-12-17] MEDS: LACTOBACILLUS ACIDOPHILUS (PROBIOTIC) CAPSULE PO SCH (19:26)
[2022-12-17] MEDS: ASPIRIN enteric coated 81MG TABLET PO SCH (19:26)
[2022-12-17] MEDS: FENOFIBRATE, Micronized 134 MG CAPSULE PO SCH (19:26)
[2022-12-17] MEDS: MELATONIN 3 MG TABLET PO PRN (19:27)
[2022-12-17 20:12] VITALS: BP 132/60
[2022-12-18 07:39] VITALS: BP 160/69
[2022-12-18] MEDS: hydrALAZINE 25 MG TABLET PO SCH ×3 (08:51→21:07)
[2022-12-18] MEDS: CLOPIDOGREL 75 MG TABLET PO SCH (08:51)
[2022-12-18] MEDS: LOSARTAN 100 MG TABLET PO SCH (08:51)
[2022-12-18] MEDS: amLODIPine 5 MG TABLET PO SCH (08:51)
[2022-12-18] MEDS: CALCIUM POLYCARBOPHIL 625 MG TABLET PO SCH (08:51)
[2022-12-18] MEDS: POTASSIUM CHLORIDE 10 MEQ TABLET PO SCH (08:52)
[2022-12-18] MEDS: PANTOPRAZOLE 40 MG TABLET PO SCH (08:52)
[2022-12-18 11:29] VITALS: BP 162/74
[2022-12-18] MEDS: ACETAMINOPHEN 325 MG TABLET PO PRN (13:47)
[2022-12-18] MEDS: ENOXAPARIN 40 MG/0.4 ML SYRINGE SC SCH (13:47)
[2022-12-18 19:37] VITALS: BP 105/51
[2022-12-18] MEDS: ASPIRIN enteric coated 81MG TABLET PO SCH (21:06)
[2022-12-18] MEDS: FENOFIBRATE, Micronized 134 MG CAPSULE PO SCH (21:06)
[2022-12-18] MEDS: MAGNESIUM OXIDE 400 MG TABLET PO SCH (21:06)
[2022-12-18] MEDS: LACTOBACILLUS ACIDOPHILUS (PROBIOTIC) CAPSULE PO SCH (21:07)
[2022-12-18] MEDS: THERAPEUTIC MULTIVITAMIN W/MINERALS TABLET PO SCH (21:07)
[2022-12-19] MEDS: amLODIPine 5 MG TABLET PO SCH (08:43)
[2022-12-19] MEDS: hydrALAZINE 25 MG TABLET PO SCH ×3 (08:43→21:12)
[2022-12-19] MEDS: PANTOPRAZOLE 40 MG TABLET PO SCH (08:43)
[2022-12-19] MEDS: LOSARTAN 100 MG TABLET PO SCH (08:43)
[2022-12-19] MEDS: CLOPIDOGREL 75 MG TABLET PO SCH (08:43)
[2022-12-19 08:45] VITALS: BP 106/62
[2022-12-19] MEDS: ACETAMINOPHEN 325 MG TABLET PO PRN ×2 (08:45→15:35)
[2022-12-19] MEDS: CALCIUM POLYCARBOPHIL 625 MG TABLET PO SCH (08:45)
[2022-12-19] MEDS: POTASSIUM CHLORIDE 10 MEQ TABLET PO SCH (08:45)
--- NOTE | 2022-12-19 09:18 | Occupational Ther Daily Note ---
OT Current Status-Daily Note Subjective Patient up in recliner eating breakfast, two visitors in room. Family reports waiting on pain medication. OT recommends participation session to determine activity level w/ pain on FLACC scale 6/10 Daughter Wendy frequently refers to patient pain level during session and remain close to patient body and near patient face.Wendy reports PLOF from a year ago that patient walked in home w/ assistive device. Pre this episode,, Patient uses lift recliner chair and sometimes sleeps in chair. Family keeps hands on patient during transfers and ambulation, family sometimes navigates walker in the home. Family provided assistance with patient LES in/out of an adjustable bed. Patient ambulation at home is approximately 40 feet to bathroom at home. Patient currently ambulates 100 feet w/ therapy. Wendy the patient daughter reports that she wants her mother good enough that we can get her home and take of her See further narrative for family discussion of therapy and nurse needs. Pain Numeric Pain Scale: 6 (FLACC) Location: Right Location Body Site: Hip Comment: no disctiption provided Mental Status/Objective Patient Orientation: Person, Confused Patient ambulated 40 feet with FWW Patient c/o pain and need to sit in chair, OT positioned chair behind patient , Patient declined sitting in chair and preceded to recliner across room ADL-Treatment Patient did reach down from sitting position in recliner and adjust and align socks to reduce risk of falling on command. Following ambulation patient is set up in recliner w/ cleaned tray table for meal. Nursing staff assessing pain level for medication. OT facilitates patient self feeding Therapy Code Descriptions/Definitions Functional [place] Measure: 0=Not Assessed/NA 4=Minimal Assistance 1=Total Assistance 5=Supervision or Setup 2=Maximal Assistance 6=Modified [place] 3=Moderate Assistance 7=Complete IndependenceSCALE: Activities may be completed with or without assistive devices. 7-Mnbvrbkgvc-iajybrj completes the activity by him/herself with no assistance from a helper. 5-Set-up or Clean-up Assistance-helper sets up or cleans up; patient completes activity. [place] assists only prior to or following the activity. 4-Supervision or Touching Assistance-helper provides verbal cues and/or touching/steadying and/or contact guard assistance as patient completes activity. Assistance may be provided throughout the activity or intermittently. 3-Partial/Moderate Assistance-helper does LESS THAN HALF the effort. [place] lifts, holds or supports trunk or limbs, but provides less than half the effort. 2-Substantial/Maximal Assistance-helper does MORE THAN HALF the effort. [place] lifts or holds trunk or limbs and provides more than half the effort. 6-Fqdfytbdx-jknonl does ALL the effort. Patient does none of the effort to complete the activity. Or, the assistance of 2 or more helpers is required for the patient to complete the activity. If activity was not attempted, code reason: 7-Patient Refused. 9-Not Applicable-not attempted and the patient did not perform the activity before the current illness, exacerbation or injury. 10-Not Attempted due to Environmental Limitations-(lack of equipment, weather restraints, etc.). 88-Not Attempted due to Medical Conditions or Safety Concerns. Eating (QC): 4 On/Off Footwear: 3 Patent is QC rated 3 for transfer in / out of recliner w/ FWW and VCs Education OT Patient Education: Correct positioning, Exercise program (RED THERAPY BAND IN ROOM), Instructions to caregiver, Modified ADL techniques, Progress toward Goal/Update tx plan, Purpose of tx/functional activities, Reviewed precautions, Rehab process, Safety issues, Transfer techniques, Use of adapted equipment Teaching Recipient: Patient, Family Teaching Methods: Demonstration, Discussion Response to Teaching: Reinforcement Needed Patient daughterWendy stood in corner of room and lowered her voice to discuss issues of therapy, nursing and patient progress. OT replied to each question by restating the question and answer the question in a volume for additional therapist to hear. In summary Wendy, patient daughter feels her mother is not receiving enough therapy. Someone needs to be responsible for getting patient out of bed for meals because that is what therapy said and no one is doing it. OT responded for family member to use call light to ask for transfer to be performed as [facility] usually delivers meal tray and does not transfer patients. Patient needs to be upright for meals to decrease aspiration risk, increase activity tolerance, change position to reduce Pressure Ulcers and assist in healing existing PU risk areas, improve CORE strengthening, functional reach for items on tray, visually scanning, FMC and gaining independence. Daughter today and previous conversation mention ARU. OT again educates daughter that Doreen herself does not determine placement or acceptant on the ARU. Daughter shared PLOF of patient and that she was receiving home health therapy prior to COVID admission. Patient used lift recliner and had contact assistance w/ transfer. Patient ambulated 40 feet in home w/ contact assistance and FWW navigation assistance at times. Family assisted with patient getting dressing, toileting and bathing prior to this hospital admission. Daughter reports that OT should do patient bathing. OT educated patient daughter that OT assess bathing for patient safety and caregiver training. Patient did not bath herself at home prior to admission. OT will recommend family training for patient bathing in shower if family determines need for training. OT does not provide bathing, dressing and grooming of patient , OT provides education, training and skilled intervention for patient and patient caregivers to perform those tasks. Daughter Wendy reports that she knows the rules and stated the choice to stay here for Swingbed is because she was supposed to receive more therapy and care. OT Short Term Goals Short Term Goals Time Frame: Dec 02, 2022 Eatin Oral hygiene: 4 OT Mcfp Goals Wind Energy Project Manager Goals Time Frame: Dec 30, 2022 (nitially set for 12/16, extended 12/16/22) Acute change in mental status: 1 Inattention: 2 Disorganized thinkin Altered level of consciousness: 2 (PER DAUGHTER REPORT) Eating (QC): 5 Oral Hygiene (QC): 4 Toileting Hygiene (QC): 3 Shower/Bathe Self (QC): 3 Upper Body Dressing (QC): 4 Lower Body Dressing (QC): 3 On/Off Footwear (QC): 3 1=Demonstrate adherence to instructed precautions during ADL tasks. 2=Patient will verbalize/demonstrate understanding of assistive devices/modifications for ADL. 3=Patient will improve strength/tolerance for activity to enable patient to perform ADL's. OT Education/Plan Problem List/Assessment Assessment: Decreased Activ Tolerance, Decreased Safety Aware, Decreased UE Strength, Impaired Bed Mobility, Impaired Cognition, Impaired Coordination, Impaired Funct Balance, Impaired Self-Care Skills, Restricted Funct UE ROM Discharge Recommendations Plan/Recommendations: Continue POC Treatment Plan/Plan of Care Treatment,Training & Education: Yes Patient would benefit from OT for education, treatment and training to promote independence in ADL's, mobility, safety and/or upper extremity function for ADL's. Plan of Care: ADL Retraining, Caregiver Training, Cognitive Retraining, Con current Therapy, Functional Mobility, Group Exercise/Act as Ind, UE Funct Exercise/Act, UE Neuromus Re-Ed/Coord Treatment Duration: Dec 09, 2022 Frequency: At least 5 of 7 days/Wk (IRF) Estimated Hrs Per Day: .25 hour per day Agreement: Yes Rehab Potential: Guarded Time Start Time: 08:28 Stop Time: 09:51 DATE: Dec 19, 2022 Total Time Billed (hr/min): 23 Billed Treatment Time CO tx [id number] for patient safety, FWW navigation,OT [id number] for feeding MIK MAHMOOD OT Dec 19, 2022 09:18
--- NOTE | 2022-12-19 09:21 | Physical Therapy Daily Note ---
PT Daily Note-Current Subjective Patient states, "I'm about ready to give up." Family present and answers questions for patient. Pain Numeric Pain Scale: 6 Location: Right Location Body Site: Hip Comment: FLACC Section J - Health Conditions 1. Rarely or not at all 2. Occasionally 3. Frequently 4. Almost constantly 8. Unable to answer Pain Effect on Sleep: 8 Pain Interference with Therapy: 8 Pain Interference w/Day-to-Day: 8 Transfers SCALE: Activities may be completed with or without assistive devices. 4-Qekegktopr-aiukage completes the activity by him/herself with no assistance from a helper. 5-Set-up or Clean-up Assistance-helper sets up or cleans up; patient completes activity. [place] assists only prior to or following the activity. 4-Supervision or Touching Assistance-helper provides verbal cues and/or touching/steadying and/or contact guard assistance as patient completes activity. Assistance may be provided throughout the activity or intermittently. 3-Partial/Moderate Assistance-helper does LESS THAN HALF the effort. [place] lifts, holds or supports trunk or limbs, but provides less than half the effort. 2-Substantial/Maximal Assistance-helper does MORE THAN HALF the effort. [place] lifts or holds trunk or limbs and provides more than half the effort. 4-Odwbnuzij-mlxbay does ALL the effort. Patient does none of the effort to complete the activity. Or, the assistance of 2 or more helpers is required for the patient to complete the activity. If activity was not attempted, code reason: 7-Patient Refused. 9-Not Applicable-not attempted and the patient did not perform the activity before the current illness, exacerbation or injury. 10-Not Attempted due to Environmental Limitations-(lack of equipment, weather restraints, etc.). 88-Not Attempted due to Medical Conditions or Safety Concerns. Sit to Stand (QC): 3 (x 3 sets) Weight Bearing Right Lower Extremity: Right Full Weight Bearing Left Lower Extremity: Left Full Weight Bearing Gait Training Distance: 40' Walk 10 feet (QC): 2 Walk 50 ft with 2 Turns(QC): 88 Gait Assistive Device: FWW Patient has increase c/o right hip pain. Noted antalgic gait/patient continues to have left sided weakness with functional mobility Exercises Supine Ex: Ankle pumps, Heel Slides Supine Reps: 12 (AAROM) Assessment During session, patient's family voiced that patient required assistance at home with all mobility PLOF. Patient continues to require assist to navigate FWW and CGA to min assist with sit to stand and gait training with VC's for body placement in FWW. Inconsistencies noted with family report on patient's PLOF with them stating she was up by herself to requiring assist with all. Per family, patient ambulates short distances only at home PLOF with assist and ambulating 100' last was the best she has done in a year. PT addressing goals. Family also lowered her voice to discuss with OT patient LOF. This PT could not hear family but OT did repeat and answer family questions so PT could hear. PT Mcc Goals Mcc Goals PT Insurance Broker Goals Time Frame: Dec 24, 2022 Roll Left & Right (QC): 4 Sit to Lying (QC): 4 Lying-Sitting on Side/Bed(QC): 4 Sit to Stand (QC): 4 Chair/Ojo-qc-Kdesd Xfer(QC): 4 Toilet Transfer (QC): 4 Car Transfer (QC): 4 Does the Patient Walk: Yes Walk 10 feet (QC): 4 Walk 50ft with 2 Turns (QC): 4 Walk 150 ft (QC): 4 Walking 10ft on Uneven Surface: 4 1 Step (curb) (QC): 4 4 Steps (QC): 9 12 Steps (QC): 9 Picking up an Object (QC): 9 Wheel 50 feet with 2 turns (QC: 9 Type: N/A Wheel 150 feet: 9 Type: N/A PT Plan Treatment/Plan Treatment Plan: Continue Plan of Care Treatment Plan: Bed Mobility, Education, Functional Activity [place], Functional Strength, Gait, Safety, Therapeutic Exercise, Transfers Treatment Duration: Dec 24, 2022 Frequency: 6 times per week Estimated Hrs Per Day: .25 hour per day Patient and/or Family Agrees t: Yes Time Time In: 828 Time Out: 843 DATE: Dec 19, 2022 Total Billed Treatment Time: 15 Total Billed Treatment 1 visit FA 15 min SANTIAGO LOAIZA PT Dec 19, 2022 09:21
[2022-12-19] MEDS: ENOXAPARIN 40 MG/0.4 ML SYRINGE SC SCH (12:58)
--- NOTE | 2022-12-19 14:17 | Progress Note - Hospitalist ---
Subjective HPI/CC On Admission Date Seen by Provider: Dec 19, 2022 Subjective/Events-last exam Pt reports doing better today but is tired from physical therapy. Discussed improvements with patient and daughter at bedside. Doing much better than last week. They are hopeful for her to be able to go to IRF. Daughter was also concerned about possible rash under patient's right arm. Looked at it with daughter and neither of us could see any appreciable rash. Barrier cream was noted in her axilla. Objective Exam Vital Signs Vital Signs Date Time Temp Pulse Resp B/P (MAP) Pulse Ox O2 Delivery O2 Flow Rate FiO2 12/19/22 08:45 Room Air 12/19/22 08:45 36.4 72 18 106/62 (77) 95 12/16/22 08:52 0.00 Capillary Refill : General Appearance: No Apparent Distress Respiratory: Lungs Clear, No Respiratory Distress Cardiovascular: Regular Rate, Rhythm, No Murmur Neurologic/Psychiatric: Alert, Other (oriented to person and place) Results/Procedures Lab Patient resulted labs reviewed. Imaging: Reviewed Imaging Report Assessment/Plan Assessment and Plan Assess & Plan/Chief Complaint Delirium Likely dementia CT head with chronic atrophic changes Delirium improving Chronic respiratory failure with hypoxia Stable on room air, supplemental oxygen as needed at night Debility PT/OT Continue swing bed Continues to make gains with therapy and was up walking in the hallway today HTN HLD GERD CAD Continue home meds DVT ppx: Lovenox Pyelonephritis, resolved EDITH, resolved Constipation, resolved COVID, resolved Recurrent UTI, resolved KADY KELLY MD Dec 19, 2022 14:17
[2022-12-19 20:09] VITALS: BP 130/61
[2022-12-19] MEDS: FENOFIBRATE, Micronized 134 MG CAPSULE PO SCH (21:12)
[2022-12-19] MEDS: MAGNESIUM OXIDE 400 MG TABLET PO SCH (21:12)
[2022-12-19] MEDS: LACTOBACILLUS ACIDOPHILUS (PROBIOTIC) CAPSULE PO SCH (21:12)
[2022-12-19] MEDS: THERAPEUTIC MULTIVITAMIN W/MINERALS TABLET PO SCH (21:12)
[2022-12-19] MEDS: ASPIRIN enteric coated 81MG TABLET PO SCH (21:12)
[2022-12-20 08:26] VITALS: BP 144/73
[2022-12-20] MEDS: amLODIPine 5 MG TABLET PO SCH (09:30)
[2022-12-20] MEDS: PANTOPRAZOLE 40 MG TABLET PO SCH (09:30)
[2022-12-20] MEDS: hydrALAZINE 25 MG TABLET PO SCH ×3 (09:30→21:57)
[2022-12-20] MEDS: CLOPIDOGREL 75 MG TABLET PO SCH (09:30)
[2022-12-20] MEDS: ACETAMINOPHEN 325 MG TABLET PO PRN (09:30)
[2022-12-20] MEDS: POTASSIUM CHLORIDE 10 MEQ TABLET PO SCH (09:31)
[2022-12-20] MEDS: LOSARTAN 100 MG TABLET PO SCH (09:31)
[2022-12-20] MEDS: CALCIUM POLYCARBOPHIL 625 MG TABLET PO SCH (09:31)
--- NOTE | 2022-12-20 10:37 | Occupational Ther Daily Note ---
OT Current Status-Daily Note Subjective Caregiver Gracie agrees to participate in caregiver training w/ patient, Patient agrees for GC training Pain Numeric Pain Scale: 4 (OT request pain medication per Gracie,CG request and patient acknowledges need.) Location Body Site: Knee Pain Description: Chronic Mental Status/Objective Patient Orientation: Person, Place ADL-Treatment Caregiver training for transfer with [place] assist and 30% VC out of recliner, a mbulation w/ gait belt and patient navigating FWW to bathroom, toilet transfer min assist, CG performed LB garment management and patient perform front scotty care with VC. OT instructed CG in proper hold of gait belt and position of patient for transfers. CG adjusted hold on gait belt appropriately. CG demonstrated understanding of training for transfers, use of gait belt and FWW Therapy Code Descriptions/Definitions Functional [place] Measure: 0=Not Assessed/NA 4=Minimal Assistance 1=Total Assistance 5=Supervision or Setup 2=Maximal Assistance 6=Modified [place] 3=Moderate Assistance 7=Complete IndependenceSCALE: Activities may be completed with or without assistive devices. 8-Lhlrnxxgom-eyjwokx completes the activity by him/herself with no assistance from a helper. 5-Set-up or Clean-up Assistance-helper sets up or cleans up; patient completes activity. [place] assists only prior to or following the activity. 4-Supervision or Touching Assistance-helper provides verbal cues and/or touching/steadying and/or contact guard assistance as patient completes activity. Assistance may be provided throughout the activity or intermittently. 3-Partial/Moderate Assistance-helper does LESS THAN HALF the effort. [place] lifts, holds or supports trunk or limbs, but provides less than half the effort. 2-Substantial/Maximal Assistance-helper does MORE THAN HALF the effort. [place] lifts or holds trunk or limbs and provides more than half the effort. 9-Iifplvmfw-[place] does ALL the effort. Patient does none of the effort to complete the activity. Or, the assistance of 2 or more helpers is required for the patient to complete the activity. If activity was not attempted, code reason: 7-Patient Refused. 9-Not Applicable-not attempted and the patient did not perform the activity before the current illness, exacerbation or injury. 10-Not Attempted due to Environmental Limitations-(lack of equipment, weather restraints, etc.). 88-Not Attempted due to Medical Conditions or Safety Concerns. Eating (QC): 4 Oral Hygiene (QC): 4 Lower Body Dressing (QC): 2 Toileting Hygiene (QC): 5 Toilet Transfer (QC): 4 Education OT Patient Education: Correct positioning, Instructions to caregiver, Modified ADL techniques, Progress toward Goal/Update tx plan, Purpose of tx/functional activities, Reviewed precautions, Rehab process, Safety issues, Transfer techniques, Use of adapted equipment Teaching Recipient: Patient, Primary Caregiver (Gracie) Teaching Methods: Demonstration, Discussion Response to Teaching: Verbalize Understanding, Return Demonstration, Reinforcement Needed OT Short Term Goals Short Term Goals Time Frame: Dec 02, 2022 Eatin Oral hygiene: 4 OT Skilled Nursing Goals Skilled Nursing Goals Time Frame: Dec 30, 2022 (nitially set for 12/16, extended 12/16/22) Acute change in mental status: 1 Inattention: 2 Disorganized thinkin Altered level of consciousness: 2 (PER DAUGHTER REPORT) Eating (QC): 5 Oral Hygiene (QC): 4 Toileting Hygiene (QC): 3 Shower/Bathe Self (QC): 3 Upper Body Dressing (QC): 4 Lower Body Dressing (QC): 3 On/Off Footwear (QC): 3 1=Demonstrate adherence to instructed precautions during ADL tasks. 2=Patient will verbalize/demonstrate understanding of assistive devices/modifications for ADL. 3=Patient will improve strength/tolerance for activity to enable patient to perform ADL's. OT Education/Plan Problem List/Assessment Assessment: Decreased Activ Tolerance, Decreased Safety Aware, Decreased UE Strength, Impaired Cognition, Impaired Coordination, Impaired Funct Balance, Impaired Self-Care Skills Discharge Recommendations Plan/Recommendations: Continue POC Treatment Plan/Plan of Care Treatment,Training & Education: Yes Patient would benefit from OT for education, treatment and training to promote independence in ADL's, mobility, safety and/or upper extremity function for ADL's. Plan of Care: ADL Retraining, Caregiver Training, Cognitive Retraining, Concurrent Therapy, Functional Mobility, Group Exercise/Act as Ind, UE Funct Exercise/Act, UE Neuromus Re-Ed/Coord Treatment Duration: Dec 09, 2022 Frequency: At least 5 of 7 days/Wk (IRF) Estimated Hrs Per Day: .25 hour per day Agreement: Yes Rehab Potential: Guarded remain up in recliner following session, Staff aware of medication need Time Start Time: 09:08 Stop Time: 09:25 DATE: Dec 20, 2022 Total Time Billed (hr/min): 17 Billed Treatment Time CO Treat for book reviewer training and consistency of both therapies FA 17 min MIK MAHMOOD OT Dec 20, 2022 10:37
--- NOTE | 2022-12-20 10:46 | Physical Therapy Daily Note ---
PT Daily Note-Current Subjective Patient and family/caregiver agree to family training to assess patient home needs. Pain Section J - Health Conditions 1. Rarely or not at all 2. Occasionally 3. Frequently 4. Almost constantly 8. Unable to answer Pain Effect on Sleep: 8 Pain Interference with Therapy: 8 Pain Interference w/Day-to-Day: 8 Transfers SCALE: Activities may be completed with or without assistive devices. 6-Kzpnnzsqfv-xagpegr completes the activity by him/herself with no assistance from a helper. 5-Set-up or Clean-up Assistance-helper sets up or cleans up; patient completes activity. [place] assists only prior to or following the activity. 4-Supervision or Touching Assistance-helper provides verbal cues and/or touchi ng/steadying and/or contact guard assistance as patient completes activity. Assistance may be provided throughout the activity or intermittently. 3-Partial/Moderate Assistance-helper does LESS THAN HALF the effort. [place] lifts, holds or supports trunk or limbs, but provides less than half the effort. 2-Substantial/Maximal Assistance-helper does MORE THAN HALF the effort. [place] lifts or holds trunk or limbs and provides more than half the effort. 5-Cekznhxbf-cnsdjr does ALL the effort. Patient does none of the effort to complete the activity. Or, the assistance of 2 or more helpers is required for the patient to complete the activity. If activity was not attempted, code reason: 7-Patient Refused. 9-Not Applicable-not attempted and the patient did not perform the activity before the current illness, exacerbation or injury. 10-Not Attempted due to Environmental Limitations-(lack of equipment, weather restraints, etc.). 88-Not Attempted due to Medical Conditions or Safety Concerns. Sit to Stand (QC): 3 (via caregiver with caregiver placing gait belt properly on patient and utilizing it with transfers appropriately) Toilet Transfer (QC): 3 Weight Bearing Right Lower Extremity: Right Full Weight Bearing Left Lower Extremity: Left Full Weight Bearing Gait Training Distance: 25' Walk 10 feet (QC): 4 (caregiver performing with patient with PT SBA if needed) Gait Assistive Device: FWW improve gait sequence with caregiver present. Assessment Family/caregiver training performed with patient performing tasks with minimal assist to CGA with gait belt use. Per caregiver, this is patient functional mobility at home. PT/OT cotreat due to patient's inability to tolerate extensive therapies and fatigues with minimal activity. Patient remains up in recliner with caregiver present. PT Snf Goals Wildlife Biologist Goals PT Snf Goals Time Frame: Dec 24, 2022 Roll Left & Right (QC): 4 Sit to Lying (QC): 4 Lying-Sitting on Side/Bed(QC): 4 Sit to Stand (QC): 4 Chair/Ifn-hc-Yiuep Xfer(QC): 4 Toilet Transfer (QC): 4 Car Transfer (QC): 4 Does the Patient Walk: Yes Walk 10 feet (QC): 4 Walk 50ft with 2 Turns (QC): 4 Walk 150 ft (QC): 4 Walking 10ft on Uneven Surface: 4 1 Step (curb) (QC): 4 4 Steps (QC): 9 12 Steps (QC): 9 Picking up an Object (QC): 9 Wheel 50 feet with 2 turns (QC: 9 Type: N/A Wheel 150 feet: 9 Type: N/A PT Plan Treatment/Plan Treatment Plan: Continue Plan of Care Treatment Plan: Bed Mobility, Education, Functional Activity [place], Functional Strength, Gait, Safety, Therapeutic Exercise, Transfers Treatment Duration: Dec 24, 2022 Frequency: 6 times per week Estimated Hrs Per Day: .25 hour per day Patient and/or Family Agrees t: Yes Time Time In: 908 Time Out: 925 DATE: Dec 20, 2022 Total Billed Treatment Time: 17 Total Billed Treatment 1 visit FA 17 min SANTIAGO LOAIZA PT Dec 20, 2022 10:46
[2022-12-20] MEDS: ENOXAPARIN 40 MG/0.4 ML SYRINGE SC SCH (12:35)
[2022-12-20 19:10] VITALS: BP 123/69
[2022-12-20] MEDS: LACTOBACILLUS ACIDOPHILUS (PROBIOTIC) CAPSULE PO SCH (21:57)
[2022-12-20] MEDS: FENOFIBRATE, Micronized 134 MG CAPSULE PO SCH (21:57)
[2022-12-20] MEDS: MAGNESIUM OXIDE 400 MG TABLET PO SCH (21:57)
[2022-12-20] MEDS: THERAPEUTIC MULTIVITAMIN W/MINERALS TABLET PO SCH (21:57)
[2022-12-20] MEDS: ASPIRIN enteric coated 81MG TABLET PO SCH (21:57)
[2022-12-20] MEDS: MELATONIN 3 MG TABLET PO PRN (22:01)
[2022-12-21 07:31] VITALS: BP 170/73
[2022-12-21] MEDS: PANTOPRAZOLE 40 MG TABLET PO SCH (08:29)
[2022-12-21] MEDS: POTASSIUM CHLORIDE 10 MEQ TABLET PO SCH (08:29)
[2022-12-21] MEDS: CALCIUM POLYCARBOPHIL 625 MG TABLET PO SCH (08:30)
[2022-12-21] MEDS: hydrALAZINE 25 MG TABLET PO SCH ×3 (08:30→20:55)
[2022-12-21] MEDS: LOSARTAN 100 MG TABLET PO SCH (08:31)
[2022-12-21] MEDS: CLOPIDOGREL 75 MG TABLET PO SCH (08:31)
[2022-12-21] MEDS: amLODIPine 5 MG TABLET PO SCH (08:31)
[2022-12-21] MEDS: ACETAMINOPHEN 325 MG TABLET PO PRN ×2 (08:31→13:29)
--- NOTE | 2022-12-21 12:19 | Progress Note - Hospitalist ---
Subjective HPI/CC On Admission Date Seen by Provider: Dec 21, 2022 Subjective/Events-last exam Pt reports doing better. Wants to go home. Discussed plan for that but that she's not ready yet. She is doing better though. Discussed with daughter at bedside Objective Exam Vital Signs Vital Signs Date Time Temp Pulse Resp B/P (MAP) Pulse Ox O2 Delivery O2 Flow Rate FiO2 12/21/22 08:00 Room Air 12/21/22 07:31 36.5 71 16 170/73 (105) 100 12/16/22 08:52 0.00 Capillary Refill : General Appearance: No Apparent Distress Respiratory: Lungs Clear Cardiovascular: Regular Rate, Rhythm, No Murmur Neurologic/Psychiatric: Alert, Oriented x3 Results/Procedures Lab Patient resulted labs reviewed. Imaging: Reviewed Imaging Report Assessment/Plan Assessment and Plan Assess & Plan/Chief Complaint Delirium Likely dementia CT head with chronic atrophic changes Delirium improving Chronic respiratory failure with hypoxia Stable on room air, supplemental oxygen as needed at night Debility PT/OT Continue swing bed Continues to make gains with therapy and hopeful to go outside today for fresh air HTN HLD GERD CAD Continue home meds DVT ppx: Lovenox Pyelonephritis, resolved EDITH, resolved Constipation, resolved COVID, resolved Recurrent UTI, resolved KADY KELLY MD Dec 21, 2022 12:19
[2022-12-21] MEDS: ENOXAPARIN 40 MG/0.4 ML SYRINGE SC SCH (13:36)
--- NOTE | 2022-12-21 14:54 | Physical Therapy Daily Note ---
PT Daily Note-Current Subjective Patient lying supine in bed upon PT arrival, agreeable to treatment. Patient rates pain at 0/10 currently. Pain Section J - Health Conditions 1. Rarely or not at all 2. Occasionally 3. Frequently 4. Almost constantly 8. Unable to answer Pain Effect on Sleep: 8 Pain Interference with Therapy: 8 Pain Interference w/Day-to-Day: 8 Transfers SCALE: Activities may be completed with or without assistive devices. 5-Axkseawkfy-yudtofs completes the activity by him/herself with no assistance from a helper. 5-Set-up or Clean-up Assistance-helper sets up or cleans up; patient completes activity. [place] assists only prior to or following the activity. 4-Supervision or Touching Assistance-helper provides verbal cues and/or touching/steadying and/or contact guard assistance as patient completes activity. Assistance may be provided throughout the activity or intermittently. 3-Partial/Moderate Assistance-helper does LESS THAN HALF the effort. [place] lif ts, holds or supports trunk or limbs, but provides less than half the effort. 2-Substantial/Maximal Assistance-helper does MORE THAN HALF the effort. [place] lifts or holds trunk or limbs and provides more than half the effort. 6-Pelaupzuv-keywwd does ALL the effort. Patient does none of the effort to complete the activity. Or, the assistance of 2 or more helpers is required for the patient to complete the activity. If activity was not attempted, code reason: 7-Patient Refused. 9-Not Applicable-not attempted and the patient did not perform the activity before the current illness, exacerbation or injury. 10-Not Attempted due to Environmental Limitations-(lack of equipment, weather restraints, etc.). 88-Not Attempted due to Medical Conditions or Safety Concerns. Roll Left & Right (QC): 3 Sit to Lying (QC): 3 Lying to Sitting/Side of Bed(Q: 3 Sit to Stand (QC): 3 Chair/Lki-ha-Tqibu Xfer(QC): 3 Weight Bearing Right Lower Extremity: Right Full Weight Bearing Left Lower Extremity: Left Full Weight Bearing Gait Training Does the Patient Walk?: Yes Distance: 60' Walk 10 feet (QC): 3 Walk 50 ft with 2 Turns(QC): 3 Gait Assistive Device: FWW Assessment Current Status: Fair Progress Patient performs all bed mobility and transfers with min/mod A. Patient ambulates 60 feet with FWW, with min A for control of FWW. Patient in transport chair post treatment as daughter has asked nursing to take her downstairs. PT Clarifier Goals Mcc Goals PT Mcc Goals Time Frame: Dec 24, 2022 Roll Left & Right (QC): 4 Sit to Lying (QC): 4 Lying-Sitting on Side/Bed(QC): 4 Sit to Stand (QC): 4 Chair/Erc-nr-Frtcb Xfer(QC): 4 Toilet Transfer (QC): 4 Car Transfer (QC): 4 Does the Patient Walk: Yes Walk 10 feet (QC): 4 Walk 50ft with 2 Turns (QC): 4 Walk 150 ft (QC): 4 Walking 10ft on Uneven Surface: 4 1 Step (curb) (QC): 4 4 Steps (QC): 9 12 Steps (QC): 9 Picking up an Object (QC): 9 Wheel 50 feet with 2 turns (QC: 9 Type: N/A Wheel 150 feet: 9 Type: N/A PT Plan Treatment/Plan Treatment Plan: Continue Plan of Care Treatment Plan: Bed Mobility, Education, Functional Activity [place], Functional Strength, Gait, Safety, Therapeutic Exercise, Transfers Treatment Duration: Dec 24, 2022 Frequency: 6 times per week Estimated Hrs Per Day: .25 hour per day Patient and/or Family Agrees t: Yes Safety Risks/Education Patient Education: Gait Training, Transfer Techniques Teaching Recipient: Patient, Family Teaching Methods: Demonstration, Discussion Response to Teaching: Reinforcement Needed Time Time In: 1432 Time Out: 1442 DATE: Dec 21, 2022 Total Billed Treatment Time: 10 Total Billed Treatment Visit, GT VIVIENNE WHALEN PT Dec 21, 2022 14:54
[2022-12-21 19:46] VITALS: BP 139/69
[2022-12-21] MEDS: MAGNESIUM OXIDE 400 MG TABLET PO SCH (20:55)
[2022-12-21] MEDS: THERAPEUTIC MULTIVITAMIN W/MINERALS TABLET PO SCH (20:55)
[2022-12-21] MEDS: FENOFIBRATE, Micronized 134 MG CAPSULE PO SCH (20:55)
[2022-12-21] MEDS: LACTOBACILLUS ACIDOPHILUS (PROBIOTIC) CAPSULE PO SCH (20:55)
[2022-12-21] MEDS: ASPIRIN enteric coated 81MG TABLET PO SCH (20:55)
[2022-12-22 08:36] VITALS: BP 157/70
[2022-12-22] MEDS: POTASSIUM CHLORIDE 10 MEQ TABLET PO SCH (09:04)
[2022-12-22] MEDS: CLOPIDOGREL 75 MG TABLET PO SCH (09:04)
[2022-12-22] MEDS: CALCIUM POLYCARBOPHIL 625 MG TABLET PO SCH (09:04)
[2022-12-22] MEDS: LOSARTAN 100 MG TABLET PO SCH (09:04)
[2022-12-22] MEDS: PANTOPRAZOLE 40 MG TABLET PO SCH (09:04)
[2022-12-22] MEDS: amLODIPine 5 MG TABLET PO SCH (09:04)
[2022-12-22] MEDS: hydrALAZINE 25 MG TABLET PO SCH ×3 (09:04→19:50)
[2022-12-22] MEDS: ACETAMINOPHEN 325 MG TABLET PO PRN ×3 (09:19→19:50)
--- NOTE | 2022-12-22 11:00 | Occupational Ther Daily Note ---
OT Current Status-Daily Note Subjective C/O pain to knee, reports did have Tylenol a little before 930 am. Reports if she were home and had pain at this level but needed to use the restroom would she get up and go? Patient reported she would go. Patient agrees to participate. Caregiver in room agrees Mental Status/Objective Patient Orientation: Person, Confused (Thought OT was trying to take her clothes off of her) At completion of session patient does not recall ambulation to bathroom small BM or grooming tasks w/ washcloth. ADL-Treatment Ambulation to bathroom w/ FWW and additional person d/t patient confusion and pain level. Face washing while sitting on toilet, arm pit AXILLA cleansing while sitting. Small BM with patient making no attempt to perform hygiene, Patient required hand over hand assist to manage LB garment, Patient pulled hand away from therapist several times, intention and purpose of task educated to patient several times. Mod assist for transfers. Therapy Code Descriptions/Definitions Functional [place] Measure: 0=Not Assessed/NA 4=Minimal Assistance 1=Total Assistance 5=Supervision or Setup 2=Maximal Assistance 6=Modified [place] 3=Moderate Assistance 7=Complete IndependenceSCALE: Activities may be completed with or without assistive devices. 6-Plohneqpxr-qaetbrj completes the activity by him/herself with no assistance from a helper. 5-Set-up or Clean-up Assistance-helper sets up or cleans up; patient completes activity. [place] assists only prior to or following the activity. 4-Supervision or Touching Assistance-helper provides verbal cues and/or touching/steadying and/or contact guard assistance as patient completes activity. Assistance may be provided throughout the activity or intermittently. 3-Partial/Moderate Assistance-helper does LESS THAN HALF the effort. [place] lifts, holds or supports trunk or limbs, but provides less than half the effort. 2-Substantial/Maximal Assistance-helper does MORE THAN HALF the effort. [place] lifts or holds trunk or limbs and provides more than half the effort. 6-Wpifxukcp-lwjpbg does ALL the effort. Patient does none of the effort to complete the activity. Or, the assistance of 2 or more helpers is required for the patient to complete the activity. If activity was not attempted, code reason: 7-Patient Refused. 9-Not Applicable-not attempted and the patient did not perform the activity before the current illness, exacerbation or injury. 10-Not Attempted due to Environmental Limitations-(lack of equipment, weather restraints, etc.). 88-Not Attempted due to Medical Conditions or Safety Concerns. Bathing Location: L Arm, R Arm (sponge) Lower Body Dressing (QC): 1 On/Off Footwear: 1 Toileting Hygiene (QC): 1 Toilet Transfer (QC): 3 Education OT Patient Education: Correct positioning, Instructions to caregiver, Modified ADL techniques, Progress toward Goal/Update tx plan, Purpose of tx/functional activities, Reviewed precautions, Rehab process, Safety issues, Transfer techniques Teaching Recipient: Patient, Family Teaching Methods: Demonstration, Discussion Response to Teaching: Verbalize Understanding, Unable to Comprehend, Reinforcement Needed OT Short Term Goals Short Term Goals Time Frame: Dec 02, 2022 Eatin Oral hygiene: 4 OT Care Home Goals Care Home Goals Time Frame: Dec 30, 2022 (nitially set for 12/16, extended 12/16/22) Acute change in mental status: 1 Inattention: 2 Disorganized thinkin Altered level of consciousness: 2 (PER DAUGHTER REPORT) Eating (QC): 5 Oral Hygiene (QC): 4 Toileting Hygiene (QC): 3 Shower/Bathe Self (QC): 3 Upper Body Dressing (QC): 4 Lower Body Dressing (QC): 3 On/Off Footwear (QC): 3 1=Demonstrate adherence to instructed precautions during ADL tasks. 2=Patient will verbalize/demonstrate understanding of assistive devices/modifications for ADL. 3=Patient will improve strength/tolerance for activity to enable patient to perform ADL's. OT Education/Plan Discharge Recommendations Plan/Recommendations: Continue POC Treatment Plan/Plan of Care Patient would benefit from OT for education, treatment and training to promote independence in ADL's, mobility, safety and/or upper extremity function for ADL's. Plan of Care: ADL Retraining, Caregiver Training, Cognitive Retraining, Concurrent Therapy, Functional Mobility, Group Exercise/Act as Ind, UE Funct Exercise/Act, UE Neuromus Re-Ed/Coord Treatment Duration: Dec 09, 2022 Frequency: At least 5 of 7 days/Wk (IRF) Estimated Hrs Per Day: .25 hour per day Agreement: Yes Rehab Potential: Guarded Time Start Time: 09:41 Stop Time: 10:04 DATE: Dec 22, 2022 Total Time Billed (hr/min): 23 Billed Treatment Time CO treat w/ PT 0941 OT only [id number] 23 min ADLs MIK MAHMOOD OT Dec 22, 2022 11:00
--- NOTE | 2022-12-22 11:17 | Physical Therapy Daily Note ---
PT Daily Note-Current Subjective Patient very confused on this date. Cotreat with OT due to patient's increase in confusion and inability to tolerate intense therapy session Pain Section J - Health Conditions 1. Rarely or not at all 2. Occasionally 3. Frequently 4. Almost constantly 8. Unable to answer Pain Effect on Sleep: 8 Pain Interference with Therapy: 8 Pain Interference w/Day-to-Day: 8 Transfers SCALE: Activities may be completed with or without assistive devices. 5-Hezzadvxtc-dcgqzfx completes the activity by him/herself with no assistance from a helper. 5-Set-up or Clean-up Assistance-helper sets up or cleans up; patient completes activity. [place] assists only prior to or following the activity. 4-Supervision or Touching Assistance-helper provides verbal cues and/or touching/steadying and/or contact guard assistance as patient completes acti vity. Assistance may be provided throughout the activity or intermittently. 3-Partial/Moderate Assistance-helper does LESS THAN HALF the effort. [place] lifts, holds or supports trunk or limbs, but provides less than half the effort. 2-Substantial/Maximal Assistance-helper does MORE THAN HALF the effort. [place] lifts or holds trunk or limbs and provides more than half the effort. 0-Ocxglxufm-yteijm does ALL the effort. Patient does none of the effort to complete the activity. Or, the assistance of 2 or more helpers is required for the patient to complete the activity. If activity was not attempted, code reason: 7-Patient Refused. 9-Not Applicable-not attempted and the patient did not perform the activity before the current illness, exacerbation or injury. 10-Not Attempted due to Environmental Limitations-(lack of equipment, weather restraints, etc.). 88-Not Attempted due to Medical Conditions or Safety Concerns. Sit to Stand (QC): 2 Chair/Wbj-og-Arktp Xfer(QC): 2 Toilet Transfer (QC): 2 Weight Bearing Right Lower Extremity: Right Full Weight Bearing Left Lower Extremity: Left Full Weight Bearing Gait Training Distance: 15' x 2 Walk 10 feet (QC): 3 Gait Assistive Device: FWW slow, slightly unsteady gait sequence Treatments PT address static and dynamic standing balance while OT address pulling up and down of brief Assessment Patient very confused and became increasingly agitated as session continued. Patient remains up in recliner with caregiver present. Patient unable to tolerate therapy with noted diminished functional endurance. PT Research Physiologist Goals Fpc Goals PT Fpc Goals Time Frame: Dec 24, 2022 Roll Left & Right (QC): 4 Sit to Lying (QC): 4 Lying-Sitting on Side/Bed(QC): 4 Sit to Stand (QC): 4 Chair/Tze-lt-Calfi Xfer(QC): 4 Toilet Transfer (QC): 4 Car Transfer (QC): 4 Does the Patient Walk: Yes Walk 10 feet (QC): 4 Walk 50ft with 2 Turns (QC): 4 Walk 150 ft (QC): 4 Walking 10ft on Uneven Surface: 4 1 Step (curb) (QC): 4 4 Steps (QC): 9 12 Steps (QC): 9 Picking up an Object (QC): 9 Wheel 50 feet with 2 turns (QC: 9 Type: N/A Wheel 150 feet: 9 Type: N/A PT Plan Treatment/Plan Treatment Plan: Continue Plan of Care Treatment Plan: Bed Mobility, Education, Functional Activity [place], Functional Strength, Gait, Safety, Therapeutic Exercise, Transfers Treatment Duration: Dec 24, 2022 Frequency: 6 times per week Estimated Hrs Per Day: .25 hour per day Patient and/or Family Agrees t: Yes Time Time In: 946 Time Out: 1001 DATE: Dec 22, 2022 Total Billed Treatment Time: 15 Total Billed Treatment 1 visit FA 15 min SANTIAGO LOAIZA PT Dec 22, 2022 11:17
[2022-12-22] MEDS: ENOXAPARIN 40 MG/0.4 ML SYRINGE SC SCH (12:50)
[2022-12-22 19:31] VITALS: BP 159/78
[2022-12-22] MEDS: MAGNESIUM OXIDE 400 MG TABLET PO SCH (19:49)
[2022-12-22] MEDS: MELATONIN 3 MG TABLET PO PRN (19:50)
[2022-12-22] MEDS: THERAPEUTIC MULTIVITAMIN W/MINERALS TABLET PO SCH (19:50)
[2022-12-22] MEDS: ASPIRIN enteric coated 81MG TABLET PO SCH (19:50)
[2022-12-22] MEDS: LACTOBACILLUS ACIDOPHILUS (PROBIOTIC) CAPSULE PO SCH (19:50)
[2022-12-22] MEDS: FENOFIBRATE, Micronized 134 MG CAPSULE PO SCH (19:50)
[2022-12-23 05:52] LABS: HEMATOCRIT 31 % (35-52); HEMOGLOBIN 10.2 g/dL (11.5-16.0); MEAN CORPUSCULAR HEMOGLOBIN 30 pg (25-34); MEAN CORPUSCULAR HGB CONC 33 g/dL (32-36); MEAN CORPUSCULAR VOLUME 90 fL (80-99); MEAN PLATELET VOLUME 9.8 fL (9.0-12.2); PLATELET COUNT 357 10^3/uL (130-400); WHITE BLOOD COUNT 6.3 10^3/uL (4.3-11.0)
[2022-12-23 05:58] LABS: POTASSIUM 4.2 MMOL/L (3.6-5.0)
[2022-12-23 06:00] LABS: CALCIUM 9.2 MG/DL (8.5-10.1)
[2022-12-23 06:04] LABS: CREATININE SERUM 0.62 MG/DL (0.60-1.30)
[2022-12-23] MEDS: CALCIUM POLYCARBOPHIL 625 MG TABLET PO SCH (08:04)
[2022-12-23] MEDS: hydrALAZINE 25 MG TABLET PO SCH ×3 (08:05→19:57)
[2022-12-23] MEDS: CLOPIDOGREL 75 MG TABLET PO SCH (08:05)
[2022-12-23] MEDS: PANTOPRAZOLE 40 MG TABLET PO SCH (08:05)
[2022-12-23] MEDS: POTASSIUM CHLORIDE 10 MEQ TABLET PO SCH (08:05)
[2022-12-23] MEDS: LOSARTAN 100 MG TABLET PO SCH (08:05)
[2022-12-23] MEDS: amLODIPine 5 MG TABLET PO SCH (08:05)
[2022-12-23] MEDS: ACETAMINOPHEN 325 MG TABLET PO PRN (08:05)
[2022-12-23 08:41] VITALS: BP 137/61
--- NOTE | 2022-12-23 11:04 | Physical Therapy Daily Note ---
PT Daily Note-Current Subjective Patient agrees to therapy. PT/OT cotreat due to patient confusion and inability to tolerated extensive therapies. Pain Section J - Health Conditions 1. Rarely or not at all 2. Occasionally 3. Frequently 4. Almost constantly 8. Unable to answer Pain Effect on Sleep: 8 Pain Interference with Therapy: 8 Pain Interference w/Day-to-Day: 8 Transfers SCALE: Activities may be completed with or without assistive devices. 1-Bvzczgqstg-konshcd completes the activity by him/herself with no assistance from a helper. 5-Set-up or Clean-up Assistance-helper sets up or cleans up; patient completes activity. [place] assists only prior to or following the activity. 4-Supervision or Touching Assistance-helper provides verbal cues and/or touching/steadying and/or contact guard assistance as patient completes activity. Assistance may be provided throughout the activity or intermittently. 3-Partial/Moderate Assistance-helper does LESS THAN HALF the effort. [place] lifts, holds or supports trunk or limbs, but provides less than half the effort. 2-Substantial/Maximal Assistance-helper does MORE THAN HALF the effort. [place] lifts or holds trunk or limbs and provides more than half the effort. 4-Mlzyfkrwo-flhvag does ALL the effort. Patient does none of the effort to complete the activity. Or, the assistance of 2 or more helpers is required for the patient to complete the activity. If activity was not attempted, code reason: 7-Patient Refused. 9-Not Applicable-not attempted and the patient did not perform the activity before the current illness, exacerbation or injury. 10-Not Attempted due to Environmental Limitations-(lack of equipment, weather restraints, etc.). 88-Not Attempted due to Medical Conditions or Safety Concerns. Sit to Stand (QC): 4 Chair/Fug-aj-Xtlsl Xfer(QC): 4 Toilet Transfer (QC): 4 Weight Bearing Right Lower Extremity: Right Full Weight Bearing Left Lower Extremity: Left Full Weight Bearing Gait Training Distance: 150' Walk 10 feet (QC): 3 Walk 50 ft with 2 Turns(QC): 3 Walk 150 ft (QC): 3 Gait Assistive Device: FWW able to negotiate FWW for a short distance, then required assist to advance and guide/shuffle gait sequence Assessment Patient tolerated treatment and remains up in recliner with increase c/o right knee pain. Patient continues to require hand over hand with all mobility and ADL's. PT Safety Analyst Goals Half-Way Goals PT Half-Way Goals Time Frame: Dec 24, 2022 Roll Left & Right (QC): 4 Sit to Lying (QC): 4 Lying-Sitting on Side/Bed(QC): 4 Sit to Stand (QC): 4 Chair/Vxd-rf-Ranyg Xfer(QC): 4 Toilet Transfer (QC): 4 Car Transfer (QC): 4 Does the Patient Walk: Yes Walk 10 feet (QC): 4 Walk 50ft with 2 Turns (QC): 4 Walk 150 ft (QC): 4 Walking 10ft on Uneven Surface: 4 1 Step (curb) (QC): 4 4 Steps (QC): 9 12 Steps (QC): 9 Picking up an Object (QC): 9 Wheel 50 feet with 2 turns (QC: 9 Type: N/A Wheel 150 feet: 9 Type: N/A PT Plan Treatment/Plan Treatment Plan: Continue Plan of Care Treatment Plan: Bed Mobility, Education, Functional Activity [place], Functional Strength, Gait, Safety, Therapeutic Exercise, Transfers Treatment Duration: Dec 24, 2022 Frequency: 6 times per week Estimated Hrs Per Day: .25 hour per day Patient and/or Family Agrees t: Yes Time Time In: 1020 Time Out: 1039 DATE: Dec 23, 2022 Total Billed Treatment Time: 19 Total Billed Treatment 1 visit FA 19 min (cotreat with OT) SANTIAGO LOAIZA PT Dec 23, 2022 11:04
--- NOTE | 2022-12-23 11:37 | Occupational Ther Daily Note ---
OT Current Status-Daily Note Subjective Up in recliner agreeable to participate Pain Location Body Site: Knee Mental Status/Objective Patient Orientation: Person, Place ADL-Treatment Required 2 persons for ambulation and navigation of FWW, toilet transfer and LB garments. Therapy Code Descriptions/Definitions Functional [place] Measure: 0=Not Assessed/NA 4=Minimal Assistance 1=Total Assistance 5=Supervision or Setup 2=Maximal Assistance 6=Modified [place] 3=Moderate Assistance 7=Complete IndependenceSCALE: Activities may be completed with or without assistive devices. 6-Pvwbmltciv-jfvsqxh completes the activity by him/herself with no assistance from a helper. 5-Set-up or Clean-up Assistance-helper sets up or cleans up; patient completes activity. [place] assists only prior to or following the activity. 4-Supervision or Touching Assistance-helper provides verbal cues and/or touching/steadying and/or contact guard assistance as patient completes activity. Assistance may be provided throughout the activity or intermittently. 3-Partial/Moderate Assistance-helper does LESS THAN HALF the effort. [place] lifts, holds or supports trunk or limbs, but provides less than half the effort. 2-Substantial/Maximal Assistance-helper does MORE THAN HALF the effort. [place] lifts or holds trunk or limbs and provides more than half the effort. 5-Qnrsqbfeg-jwyabh does ALL the effort. Patient does none of the effort to complete the activity. Or, the assistance of 2 or more helpers is required for the patient to complete the activity. If activity was not attempted, code reason: 7-Patient Refused. 9-Not Applicable-not attempted and the patient did not perform the activity before the current illness, exacerbation or injury. 10-Not Attempted due to Environmental Limitations-(lack of equipment, weather restraints, etc.). 88-Not Attempted due to Medical Conditions or Safety Concerns. Eating (QC): 4 (Instruction for hips/knees/ankles at 90 degrees for meals) Oral Hygiene (QC): 4 Upper Body Dressing (QC): 3 Lower Body Dressing (QC): 1 On/Off Footwear: 1 Toileting Hygiene (QC): 2 Toilet Transfer (QC): 1 (mod of 2 person) OT Short Term Goals Short Term Goals Time Frame: Dec 02, 2022 Eatin Oral hygiene: 4 OT Long-Term Goals Director Goals Time Frame: Dec 30, 2022 (nitially set for 12/16, extended 12/16/22) Acute change in mental status: 1 Inattention: 2 Disorganized thinkin Altered level of consciousness: 2 (PER DAUGHTER REPORT) Eating (QC): 5 Oral Hygiene (QC): 4 Toileting Hygiene (QC): 3 Shower/Bathe Self (QC): 3 Upper Body Dressing (QC): 4 Lower Body Dressing (QC): 3 On/Off Footwear (QC): 3 1=Demonstrate adherence to instructed precautions during ADL tasks. 2=Patient will verbalize/demonstrate understanding of assistive devices/modifications for ADL. 3=Patient will improve strength/tolerance for activity to enable patient to perform ADL's. OT Education/Plan Problem List/Assessment Assessment: Decreased Activ Tolerance, Decreased Safety Aware, Decreased UE Strength, Impaired Cognition, Impaired Coordination, Impaired Funct Balance, Impaired Self-Care Skills, Restricted Funct UE ROM Discharge Recommendations Plan/Recommendations: Continue POC Treatment Plan/Plan of Care Treatment,Training & Education: Yes Patient would benefit from OT for education, treatment and training to promote independence in ADL's, mobility, safety and/or upper extremity function for ADL's. Plan of Care: ADL Retraining, Caregiver Training, Cognitive Retraining, Concurrent Therapy, Functional Mobility, Group Exercise/Act as Ind, UE Funct Exercise/Act, UE Neuromus Re-Ed/Coord Treatment Duration: Dec 09, 2022 Frequency: At least 5 of 7 days/Wk (IRF) Estimated Hrs Per Day: .25 hour per day Agreement: Yes Rehab Potential: Guarded Time Start Time: 09:20 Stop Time: 09:40 DATE: Dec 23, 2022 Total Time Billed (hr/min): 20 Billed Treatment Time co tx 19 minutes OT only 1 minutes for posture education for meals ADL 20 min MIK MAHMOOD OT Dec 23, 2022 11:37
[2022-12-23] MEDS: ACETAMINOPHEN 500 MG TABLET PO SCH ×2 (12:09→19:57)
[2022-12-23] MEDS: ENOXAPARIN 40 MG/0.4 ML SYRINGE SC SCH (12:10)
--- NOTE | 2022-12-23 12:52 | Progress Note - Hospitalist ---
Subjective HPI/CC On Admission Date Seen by Provider: Dec 23, 2022 Subjective/Events-last exam Pt reports doing ok today but does seem more confused than normal. Spoke with daughter Myriam at bedside and other daughter Wendy over the phone. Will get UA to evaluate for recurrent UTI. Wendy spoke with [facility] and they are requests recorsd to evaluate her for possible admission there. Wendy also states this is the first night she's been alone and thinks the confusion may be due to that. Objective Exam Vital Signs Vital Signs Date Time Temp Pulse Resp B/P (MAP) Pulse Ox O2 Delivery O2 Flow Rate FiO2 12/23/22 08:41 36.8 67 18 137/61 (86) 95 Room Air 12/22/22 08:36 2.00 Capillary Refill : General Appearance: No Apparent Distress Cardiovascular: Regular Rate, Rhythm, No Murmur Neurologic/Psychiatric: Alert, Oriented x3 Results/Procedures Lab Laboratory Tests 12/23/22 05:30 Patient resulted labs reviewed. Imaging: Reviewed Imaging Report Assessment/Plan Assessment and Plan Assess & Plan/Chief Complaint Delirium Likely dementia CT head with chronic atrophic changes Delirium improving Repeat UA Chronic respiratory failure with hypoxia Stable on room air, supplemental oxygen as needed at night Debility PT/OT Continue swing bed Continues to make gains with therapy and hopeful to go outside today for fresh air Send notes to [place] HTN HLD GERD CAD Continue home meds DVT ppx: Lovenox Pyelonephritis, resolved EDITH, resolved Constipation, resolved COVID, resolved Recurrent UTI, resolved KADY KELLY MD Dec 23, 2022 12:52
[2022-12-23] MEDS: THERAPEUTIC MULTIVITAMIN W/MINERALS TABLET PO SCH (19:57)
[2022-12-23] MEDS: FENOFIBRATE, Micronized 134 MG CAPSULE PO SCH (19:57)
[2022-12-23] MEDS: LACTOBACILLUS ACIDOPHILUS (PROBIOTIC) CAPSULE PO SCH (19:57)
[2022-12-23] MEDS: ASPIRIN enteric coated 81MG TABLET PO SCH (19:57)
[2022-12-23] MEDS: MAGNESIUM OXIDE 400 MG TABLET PO SCH (19:57)
[2022-12-23 20:11] VITALS: BP 145/67
[2022-12-23 23:02] LABS: COLOR,URINE YELLOW
[2022-12-23 23:03] LABS: BACTERIA,URINE LARGE /HPF; BILIRUBIN,URINE NEGATIVE (NEGATIVE); CLARITY,URINE CLOUDY; GLUCOSE, URINE (UA) NEGATIVE (NEGATIVE); KETONES,URINE NEGATIVE (NEGATIVE); LEUKOCYTE ESTERASE ,URINE 3+ (NEGATIVE); NITRITE,URINE NEGATIVE (NEGATIVE); PROTEIN,URINE TRACE (NEGATIVE); SQUAMOUS EPITHELIAL CELL,UR RARE /HPF; WBC,URINE TNTC /HPF
[2022-12-24 08:47] VITALS: BP 159/80
--- NOTE | 2022-12-24 08:59 | Physical Therapy Daily Note ---
PT Daily Note-Current Subjective Pt attempting to get out of bed upon arrival to room, she states that she needs to get changed before she leaves her home for the day. Pt redirected and oriented that she is in the hospital. Pain Section J - Health Conditions 1. Rarely or not at all 2. Occasionally 3. Frequently 4. Almost constantly 8. Unable to answer Pain Effect on Sleep: 8 Pain Interference with Therapy: 8 Pain Interference w/Day-to-Day: 8 Appearance Following session, pt up in chair with chair alarm activated. Call light, phone and tray table with breakfast within reach . All needs met Mental Status Patient Orientation: Confused Transfers SCALE: Activities may be completed with or without assistive devices. 9-Ooqfhutyhc-jksswbs completes the activity by him/herself with no assistance from a helper. 5-Set-up or Clean-up Assistance-helper sets up or cleans up; patient completes activity. [place] assists only prior to or following the activity. 4-Supervision or Touching Assistance-helper provides verbal cues and/or touching/steadying and/or contact guard assistance as patient completes activity. Assistance may be provided throughout the activity or intermittently. 3-Partial/Moderate Assistance-helper does LESS THAN HALF the effort. [place] lifts, holds or supports trunk or limbs, but provides less than half the effort. 2-Substantial/Maximal Assistance-helper does MORE THAN HALF the effort. [place] lifts or holds trunk or limbs and provides more than half the effort. 9-Ioayfikmq-zjpslk does ALL the effort. Patient does none of the effort to compl ete the activity. Or, the assistance of 2 or more helpers is required for the patient to complete the activity. If activity was not attempted, code reason: 7-Patient Refused. 9-Not Applicable-not attempted and the patient did not perform the activity before the current illness, exacerbation or injury. 10-Not Attempted due to Environmental Limitations-(lack of equipment, weather restraints, etc.). 88-Not Attempted due to Medical Conditions or Safety Concerns. Lying to Sitting/Side of Bed(Q: 4 Sit to Stand (QC): 4 Weight Bearing Right Lower Extremity: Right Full Weight Bearing Left Lower Extremity: Left Full Weight Bearing Gait Training Walk 10 feet (QC): 4 Gait Assistive Device: FWW Assessment Current Status: Fair Progress Pt very confused this date, having to re-orient her several times during the session. PT Service Department Manager Goals Service Department Manager Goals PT Service Department Manager Goals Time Frame: Dec 24, 2022 Roll Left & Right (QC): 4 Sit to Lying (QC): 4 Lying-Sitting on Side/Bed(QC): 4 Sit to Stand (QC): 4 Chair/Oxh-eq-Tijan Xfer(QC): 4 Toilet Transfer (QC): 4 Car Transfer (QC): 4 Does the Patient Walk: Yes Walk 10 feet (QC): 4 Walk 50ft with 2 Turns (QC): 4 Walk 150 ft (QC): 4 Walking 10ft on Uneven Surface: 4 1 Step (curb) (QC): 4 4 Steps (QC): 9 12 Steps (QC): 9 Picking up an Object (QC): 9 Wheel 50 feet with 2 turns (QC: 9 Type: N/A Wheel 150 feet: 9 Type: N/A PT Plan Problem List Problem List: Activity Tolerance, Functional Strength, Safety, Balance, Gait, Transfer, Bed Mobility, ROM Treatment/Plan Treatment Plan: Continue Plan of Care Treatment Plan: Bed Mobility, Education, Functional Activity [place], Functional Strength, Gait, Safety, Therapeutic Exercise, Transfers Treatment Duration: Dec 24, 2022 Frequency: 6 times per week Estimated Hrs Per Day: .25 hour per day Patient and/or Family Agrees t: Yes Time Time In: 748 Time Out: 805 DATE: Dec 24, 2022 Total Billed Treatment Time: 15 Total Billed Treatment 1 visit FA (15') ESTHELA CORDON PT Dec 24, 2022 08:59
[2022-12-24] MEDS: amLODIPine 5 MG TABLET PO SCH (09:32)
[2022-12-24] MEDS: CALCIUM POLYCARBOPHIL 625 MG TABLET PO SCH (09:33)
[2022-12-24] MEDS: POTASSIUM CHLORIDE 10 MEQ TABLET PO SCH (09:33)
[2022-12-24] MEDS: PANTOPRAZOLE 40 MG TABLET PO SCH (09:33)
[2022-12-24] MEDS: LOSARTAN 100 MG TABLET PO SCH (09:33)
[2022-12-24] MEDS: CLOPIDOGREL 75 MG TABLET PO SCH (09:33)
[2022-12-24] MEDS: hydrALAZINE 25 MG TABLET PO SCH ×3 (09:33→21:46)
[2022-12-24] MEDS: ACETAMINOPHEN 500 MG TABLET PO SCH ×3 (09:33→21:46)
[2022-12-24] MEDS: ENOXAPARIN 40 MG/0.4 ML SYRINGE SC SCH (11:55)
[2022-12-24] MEDS: MEROPENEM INJECTION 500 MG in NS (IVPB) 100 ML 100 ML IV SCH ×2 (11:55→21:46)
[2022-12-24] MEDS: ACETAMINOPHEN 325 MG TABLET PO PRN (17:02)
[2022-12-24 20:20] VITALS: BP 121/54
[2022-12-24] MEDS: THERAPEUTIC MULTIVITAMIN W/MINERALS TABLET PO SCH (21:46)
[2022-12-24] MEDS: FENOFIBRATE, Micronized 134 MG CAPSULE PO SCH (21:46)
[2022-12-24] MEDS: ASPIRIN enteric coated 81MG TABLET PO SCH (21:46)
[2022-12-24] MEDS: LACTOBACILLUS ACIDOPHILUS (PROBIOTIC) CAPSULE PO SCH (21:46)
[2022-12-24] MEDS: MAGNESIUM OXIDE 400 MG TABLET PO SCH (21:47)
[2022-12-25] MEDS: MEROPENEM INJECTION 500 MG in NS (IVPB) 100 ML 100 ML IV SCH ×3 (03:58→19:39)
[2022-12-25 08:53] VITALS: BP 154/84
[2022-12-25] MEDS: CALCIUM POLYCARBOPHIL 625 MG TABLET PO SCH (09:18)
[2022-12-25] MEDS: ACETAMINOPHEN 500 MG TABLET PO SCH ×3 (09:18→20:36)
[2022-12-25] MEDS: CLOPIDOGREL 75 MG TABLET PO SCH (09:18)
[2022-12-25] MEDS: LOSARTAN 100 MG TABLET PO SCH (09:18)
[2022-12-25] MEDS: POTASSIUM CHLORIDE 10 MEQ TABLET PO SCH (09:18)
[2022-12-25] MEDS: PANTOPRAZOLE 40 MG TABLET PO SCH (09:18)
[2022-12-25] MEDS: hydrALAZINE 25 MG TABLET PO SCH ×3 (09:19→20:37)
[2022-12-25] MEDS: amLODIPine 5 MG TABLET PO SCH (09:20)
[2022-12-25] MEDS: ENOXAPARIN 40 MG/0.4 ML SYRINGE SC SCH (12:01)
[2022-12-25 19:57] VITALS: BP 132/59
[2022-12-25] MEDS: THERAPEUTIC MULTIVITAMIN W/MINERALS TABLET PO SCH (20:37)
[2022-12-25] MEDS: LACTOBACILLUS ACIDOPHILUS (PROBIOTIC) CAPSULE PO SCH (20:37)
[2022-12-25] MEDS: ASPIRIN enteric coated 81MG TABLET PO SCH (20:37)
[2022-12-25] MEDS: FENOFIBRATE, Micronized 134 MG CAPSULE PO SCH (20:37)
[2022-12-25] MEDS: MAGNESIUM OXIDE 400 MG TABLET PO SCH (20:37)
[2022-12-26] MEDS: MEROPENEM INJECTION 500 MG in NS (IVPB) 100 ML 100 ML IV SCH ×2 (03:53→11:23)
[2022-12-26 08:11] VITALS: BP 161/75
[2022-12-26] MEDS: hydrALAZINE 25 MG TABLET PO SCH ×3 (08:54→19:30)
[2022-12-26] MEDS: POTASSIUM CHLORIDE 10 MEQ TABLET PO SCH (08:55)
[2022-12-26] MEDS: LOSARTAN 100 MG TABLET PO SCH (08:55)
[2022-12-26] MEDS: PANTOPRAZOLE 40 MG TABLET PO SCH (08:55)
[2022-12-26] MEDS: amLODIPine 5 MG TABLET PO SCH (08:55)
[2022-12-26] MEDS: CLOPIDOGREL 75 MG TABLET PO SCH (08:55)
[2022-12-26] MEDS: ACETAMINOPHEN 500 MG TABLET PO SCH ×3 (08:56→19:30)
[2022-12-26] MEDS: CALCIUM POLYCARBOPHIL 625 MG TABLET PO SCH (08:56)
--- NOTE | 2022-12-26 11:20 | Physical Therapy Daily Note ---
PT Daily Note-Current Subjective Patient agrees to PT. Family present. Pain Section J - Health Conditions 1. Rarely or not at all 2. Occasionally 3. Frequently 4. Almost constantly 8. Unable to answer Pain Effect on Sleep: 8 Pain Interference with Therapy: 8 Pain Interference w/Day-to-Day: 8 Transfers SCALE: Activities may be completed with or without assistive devices. 1-Jzoshbsnlp-txxqgxj completes the activity by him/herself with no assistance from a helper. 5-Set-up or Clean-up Assistance-helper sets up or cleans up; patient completes activity. [place] assists only prior to or following the activity. 4-Supervision or Touching Assistance-helper provides verbal cues and/or touching/steadying and/or contact guard assistance as patient completes activity. Assistance may be provided throughout the activity or intermittently. 3-Partial/Moderate Assistance-helper does LESS THAN HALF the effort. [place] lifts, holds or supports trunk or limbs, but provides less than half the effort. 2-Substantial/Maximal Assistance-helper does MORE THAN HALF the effort. [place] lifts or holds trunk or limbs and provides more than half the effort. 5-Joewcnqyx-mxeveg does ALL the effort. Patient does none of the effort to complete the activity. Or, the assistance of 2 or more helpers is required for the patient to complete the activity. If activity was not attempted, code reason: 7-Patient Refused. 9-Not Applicable-not attempted and the patient did not perform the activity before the current illness, exacerbation or injury. 10-Not Attempted due to Environmental Limitations-(lack of equipment, weather restraints, etc.). 88-Not Attempted due to Medical Conditions or Safety Concerns. Sit to Stand (QC): 3 Weight Bearing Right Lower Extremity: Right Full Weight Bearing Left Lower Extremity: Left Full Weight Bearing Gait Training Distance: 125' Walk 10 feet (QC): 3 Walk 50 ft with 2 Turns(QC): 3 Gait Assistive Device: FWW very slow, shuffle gait sequence Exercises Seated Therapy Exercises: Ankle pumps, Long arc quads Seated Reps: 15 Assessment Patient continues to be hand over hand with all mobility and activity. Progress not being made with cotreat with OT. PT/OT to split sessions to see is any progress will be made. Patient remains up in recliner with needs met. Daughter present report they do exercises with patient 1/day. Instructed to increase frequency with exercises. Patient did cease treatment and stated, "I'm done." PT Senior Living Goals Senior Living Goals PT Shade Matcher Goals Time Frame: Jan 28, 2023 Roll Left & Right (QC): 4 Sit to Lying (QC): 4 Lying-Sitting on Side/Bed(QC): 4 Sit to Stand (QC): 4 Chair/Lni-bn-Zdwcf Xfer(QC): 4 Toilet Transfer (QC): 4 Car Transfer (QC): 4 Does the Patient Walk: Yes Walk 10 feet (QC): 4 Walk 50ft with 2 Turns (QC): 4 Walk 150 ft (QC): 4 Walking 10ft on Uneven Surface: 4 1 Step (curb) (QC): 4 4 Steps (QC): 9 12 Steps (QC): 9 Picking up an Object (QC): 9 Wheel 50 feet with 2 turns (QC: 9 Type: N/A Wheel 150 feet: 9 Type: N/A PT Plan Treatment/Plan Treatment Plan: Continue Plan of Care Treatment Plan: Bed Mobility, Education, Functional Activity [place], Functional Strength, Gait, Safety, Therapeutic Exercise, Transfers Treatment Duration: Jan 28, 2023 Frequency: 6 times per week Estimated Hrs Per Day: .25 hour per day Patient and/or Family Agrees t: Yes Time Time In: 930 Time Out: 953 DATE: Dec 26, 2022 Total Billed Treatment Time: 23 Total Billed Treatment 1 visit FA x 2 23 min (cotreat with OT) SANTIAGO LOAIZA PT Dec 26, 2022 11:20
--- NOTE | 2022-12-26 11:22 | Occupational Ther Daily Note ---
OT Current Status-Daily Note Subjective Patient did not perform HEP provided with ROM and RED therapy band Pain Numeric Pain Scale: 5-Moderate Pain Location Body Site: Knee Mental Status/Objective Patient Orientation: Person ADL-Treatment Patient is in hospital gown and own gown on recliner back . Patient is plateau w/ ADLS and transfer assistance, OT recommends individual treatments and written HEP for family to perform w/ patient. minimal exercises are written on white messi amita and daughter reports performance once over weekend., Therapy Code Descriptions/Definitions Functional [place] Measure: 0=Not Assessed/NA 4=Minimal Assistance 1=Total Assistance 5=Supervision or Setup 2=Maximal Assistance 6=Modified [place] 3=Moderate Assistance 7=Complete IndependenceSCALE: Activities may be completed with or without assistive devices. 9-Txtdhedugm-fsfifgv completes the activity by him/herself with no assistance from a helper. 5-Set-up or Clean-up Assistance-helper sets up or cleans up; patient completes activity. [place] assists only prior to or following the activity. 4-Supervision or Touching Assistance-helper provides verbal cues and/or touching/steadying and/or contact guard assistance as patient completes activity. Assistance may be provided throughout the activity or intermittently. 3-Partial/Moderate Assistance-helper does LESS THAN HALF the effort. [place] lift s, holds or supports trunk or limbs, but provides less than half the effort. 2-Substantial/Maximal Assistance-helper does MORE THAN HALF the effort. [place] lifts or holds trunk or limbs and provides more than half the effort. 0-Kofylzkbf-afoacs does ALL the effort. Patient does none of the effort to complete the activity. Or, the assistance of 2 or more helpers is required for the patient to complete the activity. If activity was not attempted, code reason: 7-Patient Refused. 9-Not Applicable-not attempted and the patient did not perform the activity before the current illness, exacerbation or injury. 10-Not Attempted due to Environmental Limitations-(lack of equipment, weather restraints, etc.). 88-Not Attempted due to Medical Conditions or Safety Concerns. Eating (QC): 4 Oral Hygiene (QC): 4 Shower/Bathe Self (QC): 7 (nursing staff to perform) Upper Body Dressing (QC): 3 Lower Body Dressing (QC): 2 On/Off Footwear: 1 Toileting Hygiene (QC): 2 Toilet Transfer (QC): 3 Patient performed FWW navigation w/ 25% VCs for direction and hand placement Other Treatment Education to family member for BUE ROM, functional reach and sitting upright w/o back support in chair, reinforced 90/90/90 hip/knee/ankle posture for all meals, Daughter reports she does not recall education previously provided, OT directed daughter to white board. Education OT Patient Education: Correct positioning, Exercise program, Instructions to caregiver, Progress toward Goal/Update tx plan, Purpose of tx/functional activities, Reviewed precautions, Rehab process, Safety issues, Transfer techniques Teaching Recipient: Patient, Family Teaching Methods: Demonstration, Handout, Discussion Response to Teaching: Reinforcement Needed OT Short Term Goals Short Term Goals Time Frame: Dec 02, 2022 Eatin Oral hygiene: 4 OT Slate Handler Goals Slate Handler Goals Time Frame: Dec 30, 2022 (nitially set for 12/16, extended 12/16/22) Acute change in mental status: 1 Inattention: 2 Disorganized thinkin Altered level of consciousness: 2 (PER DAUGHTER REPORT) Eating (QC): 5 Oral Hygiene (QC): 4 Toileting Hygiene (QC): 3 Shower/Bathe Self (QC): 3 Upper Body Dressing (QC): 4 Lower Body Dressing (QC): 3 On/Off Footwear (QC): 3 1=Demonstrate adherence to instructed precautions during ADL tasks. 2=Patient will verbalize/demonstrate understanding of assistive devices/modifications for ADL. 3=Patient will improve strength/tolerance for activity to enable patient to perform ADL's. OT Education/Plan Problem List/Assessment Assessment: Decreased Activ Tolerance, Decreased Safety Aware, Decreased UE Strength, Impaired Cognition, Impaired Coordination, Impaired Funct Balance, Impaired Self-Care Skills Discharge Recommendations Plan/Recommendations: Continue POC Therapy Discharge Recommendati: Post Acute OT Treatment Plan/Plan of Care Treatment,Training & Education: Yes Patient would benefit from OT for education, treatment and training to promote independence in ADL's, mobility, safety and/or upper extremity function for ADL's. Plan of Care: ADL Retraining, Caregiver Training, Cognitive Retraining, Concurrent Therapy, Functional Mobility, Group Exercise/Act as Ind, UE Funct Exercise/Act, UE Neuromus Re-Ed/Coord Treatment Duration: Dec 09, 2022 Frequency: At least 5 of 7 days/Wk (IRF) Estimated Hrs Per Day: .25 hour per day Agreement: Yes Rehab Potential: Guarded Time Start Time: 09:30 Stop Time: 09:53 DATE: Dec 26, 2022 Total Time Billed (hr/min): 23 Billed Treatment Time CO-TX for consistency and safety, patient has low tolerance to activity level. Additional person is required for LB dressing and hygiene ADL, EX 23 min MIK MAHMOOD OT Dec 26, 2022 11:22
[2022-12-26] MEDS: ENOXAPARIN 40 MG/0.4 ML SYRINGE SC SCH (12:48)
[2022-12-26] MEDS ORDERED: LOPERAMIDE 2 MG CAPSULE PO PRN (18:30)
--- NOTE | 2022-12-26 18:37 | Progress Note - Hospitalist ---
Subjective HPI/CC On Admission Date Seen by Provider: Dec 26, 2022 Time Seen by Provider: 12:50 Subjective/Events-last exam She is sitting in her chair. She reports diarrhea. She has no other complaints. Objective Exam Vital Signs Vital Signs Date Time Temp Pulse Resp B/P (MAP) Pulse Ox O2 Delivery O2 Flow Rate FiO2 12/26/22 08:11 36.8 72 17 161/75 (103) 95 Room Air 12/26/22 05:47 0.00 Capillary Refill : General Appearance: No Apparent Distress, Chronically ill Respiratory: Lungs Clear, No Respiratory Distress Cardiovascular: Regular Rate, Rhythm, No Murmur Gastrointestinal: Normal Bowel Sounds, Soft Extremity: Normal Inspection, No Pedal Edema Neurologic/Psychiatric: Alert, Normal Mood/Affect Results/Procedures Lab Patient resulted labs reviewed. Imaging: Reviewed Imaging Report Assessment/Plan Assessment and Plan Assess & Plan/Chief Complaint Delirium Likely dementia CT head with chronic atrophic changes Delirium improving Recurrent UTI due to Enterococcus Macrobid Chronic respiratory failure with hypoxia Stable on room air, supplemental oxygen as needed at night Debility PT/OT Continue swing bed SW following, updated clinicals sent to [place] HTN HLD GERD CAD Continue home meds DVT ppx: Lovenox Pyelonephritis, resolved EDITH, resolved Constipation, resolved COVID, resolved Recurrent UTI, resolved Diagnosis/Problems Diagnosis/Problems (1) Debility Status: Acute (2) Delirium Status: Acute (3) Advanced age Status: Chronic (4) Poor prognosis Status: Acute (5) EDITH (acute kidney injury) Status: Resolved Resolution Date/Time: 11/30/22 @ 16:58 (6) UTI (urinary tract infection) Status: Acute (7) Pyelonephritis Status: Resolved Resolution Date/Time: 11/30/22 @ 16:58 (8) Metabolic encephalopathy Status: Resolved Resolution Date/Time: 12/17/22 @ 18:36 (9) COVID-19 Status: Resolved Resolution Date/Time: 12/13/22 @ 15:52 GREER MILLAN MD Dec 26, 2022 18:37
[2022-12-26] MEDS: MAGNESIUM OXIDE 400 MG TABLET PO SCH (19:30)
[2022-12-26] MEDS: THERAPEUTIC MULTIVITAMIN W/MINERALS TABLET PO SCH (19:30)
[2022-12-26] MEDS: ASPIRIN enteric coated 81MG TABLET PO SCH (19:30)
[2022-12-26] MEDS: NITROFURANTOIN Monohydrate/Macro 100 MG CAPSULE PO SCH (19:30)
[2022-12-26] MEDS: LACTOBACILLUS ACIDOPHILUS (PROBIOTIC) CAPSULE PO SCH (19:30)
[2022-12-26] MEDS: FENOFIBRATE, Micronized 134 MG CAPSULE PO SCH (19:30)
[2022-12-26] MEDS: MELATONIN 3 MG TABLET PO PRN (19:30)
[2022-12-26 19:34] VITALS: BP 156/60
[2022-12-27 07:37] VITALS: BP 163/80
[2022-12-27] MEDS: PANTOPRAZOLE 40 MG TABLET PO SCH (08:20)
[2022-12-27] MEDS: NITROFURANTOIN Monohydrate/Macro 100 MG CAPSULE PO SCH ×2 (08:20→17:42)
[2022-12-27] MEDS: hydrALAZINE 25 MG TABLET PO SCH ×3 (08:20→19:50)
[2022-12-27] MEDS: CALCIUM POLYCARBOPHIL 625 MG TABLET PO SCH (08:20)
[2022-12-27] MEDS: amLODIPine 5 MG TABLET PO SCH (08:20)
[2022-12-27] MEDS: CLOPIDOGREL 75 MG TABLET PO SCH (08:21)
[2022-12-27] MEDS: ACETAMINOPHEN 500 MG TABLET PO SCH ×3 (08:21→19:50)
[2022-12-27] MEDS: LOSARTAN 100 MG TABLET PO SCH (08:21)
[2022-12-27] MEDS: POTASSIUM CHLORIDE 10 MEQ TABLET PO SCH (08:21)
--- NOTE | 2022-12-27 10:33 | Physical Therapy Daily Note ---
PT Daily Note-Current Subjective Patient initially declined PT due to not sleeping, however, after much encouragement agreed. Patient also states, "I should just give up and ." Caregiver present. Pain Section J - Health Conditions 1. Rarely or not at all 2. Occasionally 3. Frequently 4. Almost constantly 8. Unable to answer Pain Effect on Sleep: 8 Pain Interference with Therapy: 8 Pain Interference w/Day-to-Day: 8 Mental Status Patient Orientation: Person, Place Transfers SCALE: Activities may be completed with or without assistive devices. 5-Tazlswuwtn-glhnvbs completes the activity by him/herself with no assistance from a helper. 5-Set-up or Clean-up Assistance-helper sets up or cleans up; patient completes activity. [place] assists only prior to or following the activity. 4-Supervision or Touching Assistance-helper provides verbal cues and/or touching/steadying and/or contact guard assistance as patient completes activity. Assistance may be provided throughout the activity or intermittently. 3-Partial/Moderate Assistance-helper does LESS THAN HALF the effort. [place] lifts, holds or supports trunk or limbs, but provides less than half the effort. 2-Substantial/Maximal Assistance-helper does MORE THAN HALF the effort. [place] lifts or holds trunk or limbs and provides more than half the effort. 2-Gzswoafss-fouatc does ALL the effort. Patient does none of the effort to complete the activity. Or, the assistance of 2 or more helpers is required for the patient to complete the activity. If activity was not attempted, code reason: 7-Patient Refused. 9-Not Applicable-not attempted and the patient did not perform the activity before the current illness, exacerbation or injury. 10-Not Attempted due to Environmental Limitations-(lack of equipment, weather restraints, etc.). 88-Not Attempted due to Medical Conditions or Safety Concerns. Sit to Stand (QC): 3 Weight Bearing Right Lower Extremity: Right Full Weight Bearing Left Lower Extremity: Left Full Weight Bearing Gait Training Distance: 50' Walk 10 feet (QC): 4 Walk 50 ft with 2 Turns(QC): 4 Walk 150 ft (QC): 7 Gait Assistive Device: FWW improved gait sequence on this date with good FWW negotiation Exercises Supine Ex: Ankle pumps, Quad Set, Heel Slides, Straight leg raise Supine Reps: 8 Seated Therapy Exercises: Long arc quads Seated Reps: 10 Assessment Patient ceased treatment due to fatigue. Patient remains up in recliner with needs met. Patient tolerates minimal activity. PT Director Of Securities And Real Estate Goals Mcc Goals PT Mcc Goals Time Frame: Jan 28, 2023 Roll Left & Right (QC): 4 Sit to Lying (QC): 4 Lying-Sitting on Side/Bed(QC): 4 Sit to Stand (QC): 4 Chair/Xrj-wr-Ubyzv Xfer(QC): 4 Toilet Transfer (QC): 4 Car Transfer (QC): 4 Does the Patient Walk: Yes Walk 10 feet (QC): 4 Walk 50ft with 2 Turns (QC): 4 Walk 150 ft (QC): 4 Walking 10ft on Uneven Surface: 4 1 Step (curb) (QC): 4 4 Steps (QC): 9 12 Steps (QC): 9 Picking up an Object (QC): 9 Wheel 50 feet with 2 turns (QC: 9 Type: N/A Wheel 150 feet: 9 Type: N/A PT Plan Treatment/Plan Treatment Plan: Continue Plan of Care Treatment Plan: Bed Mobility, Education, Functional Activity [place], Functional Strength, Gait, Safety, Therapeutic Exercise, Transfers Treatment Duration: Jan 28, 2023 Frequency: 6 times per week Estimated Hrs Per Day: .25 hour per day Patient and/or Family Agrees t: Yes Time Time In: 940 Time Out: 955 DATE: Dec 27, 2022 Total Billed Treatment Time: 15 Total Billed Treatment 1 visit FA 15 min SANTIAGO LOAIZA PT Dec 27, 2022 10:33
--- NOTE | 2022-12-27 11:05 | Occupational Ther Daily Note ---
OT Current Status-Daily Note Subjective ON arrival, patient request a day of rest and no therapy. OT educated patient and CG for roles and frequency of stay and POC. Patient agrees w/ moderate encouragement. Patient for the first time activated leg rest lever to lower legs and stood w/o gait belt and FWW placed for safety,. CG retrieved FWW and gait belt for OT. Mental Status/Objective Patient Orientation: Person Patient is disoriented and reports her was just here and her kids need her to come home ADL-Treatment Therapy Code Descriptions/Definitions Functional [place] Measure: 0=Not Assessed/NA 4=Minimal Assistance 1=Total Assistance 5=Supervision or Setup 2=Maximal Assistance 6=Modified [place] 3=Moderate Assistance 7=Complete IndependenceSCALE: Activities may be completed with or without assistive devices. 1-Mymozmfljv-cbsashx completes the activity by him/herself with no assistance from a helper. 5-Set-up or Clean-up Assistance-helper sets up or cleans up; patient completes activity. [place] assists only prior to or following the activity. 4-Supervision or Touching Assistance-helper provides verbal cues and/or touching/steadying and/or contact guard assistance as patient completes ac tivity. Assistance may be provided throughout the activity or intermittently. 3-Partial/Moderate Assistance-helper does LESS THAN HALF the effort. [place] lifts, holds or supports trunk or limbs, but provides less than half the effort. 2-Substantial/Maximal Assistance-helper does MORE THAN HALF the effort. [place] lifts or holds trunk or limbs and provides more than half the effort. 2-Qgcrtmhhc-bmwqgq does ALL the effort. Patient does none of the effort to complete the activity. Or, the assistance of 2 or more helpers is required for the patient to complete the activity. If activity was not attempted, code reason: 7-Patient Refused. 9-Not Applicable-not attempted and the patient did not perform the activity before the current illness, exacerbation or injury. 10-Not Attempted due to Environmental Limitations-(lack of equipment, weather restraints, etc.). 88-Not Attempted due to Medical Conditions or Safety Concerns. Other Treatment OT treatment separate from PT d/t plateau of progress. Patient stood and performed 5 multidirectional reaches for dynamic balance and increased tolerance to activity, Patent abruptly sits in recliner and self repositioned scooting back in recliner. OT attempted to redirect patient and remain on tasks for therapy using red therapy band, Patient performed 2 B UE horz abd pulls with band and 1 shoulder flexion pull with band. Patient refused further intervention. Education OT Patient Education: Exercise program, Instructions to caregiver, Progress toward Goal/Update tx plan, Purpose of tx/functional activities, Reviewed precautions, Rehab process, Safety issues, Use of adapted equipment Teaching Recipient: Patient, Primary Caregiver Teaching Methods: Demonstration, Discussion Response to Teaching: Reinforcement Needed OT Short Term Goals Short Term Goals Time Frame: Dec 02, 2022 Eatin Oral hygiene: 4 OT Senior Inspector Goals Senior Inspector Goals Time Frame: Dec 30, 2022 (nitially set for 12/16, extended 12/16/22) Acute change in mental status: 1 Inattention: 2 Disorganized thinkin Altered level of consciousness: 2 (PER DAUGHTER REPORT) Eating (QC): 5 Oral Hygiene (QC): 4 Toileting Hygiene (QC): 3 Shower/Bathe Self (QC): 3 Upper Body Dressing (QC): 4 Lower Body Dressing (QC): 3 On/Off Footwear (QC): 3 1=Demonstrate adherence to instructed precautions during ADL tasks. 2=Patient will verbalize/demonstrate understanding of assistive devices/modifications for ADL. 3=Patient will improve strength/tolerance for activity to enable patient to perform ADL's. OT Education/Plan Problem List/Assessment Assessment: No Skilled OT Needs ID'd Discharge Recommendations Plan/Recommendations: Continue POC Treatment Plan/Plan of Care Treatment,Training & Education: Yes Patient would benefit from OT for education, treatment and training to promote independence in ADL's, mobility, safety and/or upper extremity function for ADL's. Plan of Care: ADL Retraining, Caregiver Training, Cognitive Retraining, Concurrent Therapy, Functional Mobility, Group Exercise/Act as Ind, UE Funct Exercise/Act, UE Neuromus Re-Ed/Coord Comment Patient is near plateau, caregiver demonstrated 100% recall of previous exercises and transfer sequences w/ patient using gait belt and FWW Treatment Duration: Dec 09, 2022 Frequency: At least 5 of 7 days/Wk (IRF) Estimated Hrs Per Day: .25 hour per day Agreement: Yes Rehab Potential: Guarded Time Start Time: 10:12 Stop Time: 10:33 DATE: Dec 27, 2022 Total Time Billed (hr/min): 21 Billed Treatment Time ex 21 MIK MAHMOOD OT Dec 27, 2022 11:05
[2022-12-27] MEDS: ENOXAPARIN 40 MG/0.4 ML SYRINGE SC SCH (12:18)
[2022-12-27 19:34] VITALS: BP 155/79
[2022-12-27] MEDS: MAGNESIUM OXIDE 400 MG TABLET PO SCH (19:50)
[2022-12-27] MEDS: FENOFIBRATE, Micronized 134 MG CAPSULE PO SCH (19:50)
[2022-12-27] MEDS: LACTOBACILLUS ACIDOPHILUS (PROBIOTIC) CAPSULE PO SCH (19:50)
[2022-12-27] MEDS: ASPIRIN enteric coated 81MG TABLET PO SCH (19:50)
[2022-12-27] MEDS: THERAPEUTIC MULTIVITAMIN W/MINERALS TABLET PO SCH (19:50)
[2022-12-27] MEDS: MELATONIN 3 MG TABLET PO PRN (19:50)
[2022-12-28 08:25] VITALS: BP 125/71
[2022-12-28] MEDS: CLOPIDOGREL 75 MG TABLET PO SCH (08:36)
[2022-12-28] MEDS: CALCIUM POLYCARBOPHIL 625 MG TABLET PO SCH (08:36)
[2022-12-28] MEDS: POTASSIUM CHLORIDE 10 MEQ TABLET PO SCH (08:36)
[2022-12-28] MEDS: hydrALAZINE 25 MG TABLET PO SCH ×3 (08:36→20:50)
[2022-12-28] MEDS: LOSARTAN 100 MG TABLET PO SCH (08:36)
[2022-12-28] MEDS: ACETAMINOPHEN 500 MG TABLET PO SCH ×3 (08:36→20:50)
[2022-12-28] MEDS: amLODIPine 5 MG TABLET PO SCH (08:36)
[2022-12-28] MEDS: NITROFURANTOIN Monohydrate/Macro 100 MG CAPSULE PO SCH ×2 (08:36→18:37)
[2022-12-28] MEDS: PANTOPRAZOLE 40 MG TABLET PO SCH (08:37)
--- NOTE | 2022-12-28 11:00 | Occupational Ther Daily Note ---
OT Current Status-Daily Note Subjective No c/o pain, verbalizes not sleeping well, agrees to participate in therapy Mental Status/Objective Patient Orientation: Person ADL-Treatment OT placed hand on patient back during recliner sit/stand transfer w/ gait belt and FWW. Pastor assit to stand, patient navigated FWW to bathroom w/ VCs only, stood at sink to wash hands and yamel. Required tactile cues to locate soap and wash hands.While standing patient reports need to urinate. Toilet transfer moderate assit. BM episode and patient remained on commode. Patien did not mange any LB garments or gown during session. PCG is in agreement PLOF is how patient is currently functioning. PCG reports and demonstrated understanding of transfers and ADLS w/ Patient Therapy Code Descriptions/Definitions Functional [place] Measure: 0=Not Assessed/NA 4=Minimal Assistance 1=Total Assistance 5=Supervision or Setup 2=Maximal Assistance 6=Modified [place] 3=Moderate Assistance 7=Complete IndependenceSCALE: Activities may be completed with or without assistive devices. 8-Ejqkcwvfur-jpntyao completes the activity by him/herself with no assistance from a helper. 5-Set-up or Clean-up Assistance-helper sets up or cleans up; patient completes activity. [place] assists only prior to or following the activity. 4-Supervision or Touching Assistance-helper provides verbal cues and/or touching/steadying and/or contact guard assistance as patient completes activity. Assistance may be provided throughout the activity or intermittently. 3-Partial/Moderate Assistance-helper does LESS THAN HALF the effort. [place] lifts, holds or supports trunk or limbs, but provides less than half the effort. 2-Substantial/Maximal Assistance-helper does MORE THAN HALF the effort. [place] lifts or holds trunk or limbs and provides more than half the effort. 3-Gbiaqvint-zuyana does ALL the effort. Patient does none of the effort to complete the activity. Or, the assistance of 2 or more helpers is required for the patient to complete the activity. If activity was not attempted, code reason: 7-Patient Refused. 9-Not Applicable-not attempted and the patient did not perform the activity before the current illness, exacerbation or injury. 10-Not Attempted due to Environmental Limitations-(lack of equipment, weather restraints, etc.). 88-Not Attempted due to Medical Conditions or Safety Concerns. Eating (QC): 4 Oral Hygiene (QC): 4 Upper Body Dressing (QC): 3 Lower Body Dressing (QC): 2 (pulls and tugs at brief when standing, does not complete any other garment or sequence) On/Off Footwear: 1 (kicks foot out, make no attempt when encouraged to participate putitng sock on) Toileting Hygiene (QC): 3 (front only) Education OT Patient Education: Correct positioning, Exercise program, Instructions to caregiver, Modified ADL techniques, Progress toward Goal/Update tx plan, Purpose of tx/functional activities, Reviewed precautions, Rehab process, Safety issues, Transfer techniques, Use of adapted equipment Teaching Recipient: Patient, Primary Caregiver Teaching Methods: Demonstration, Discussion Response to Teaching: Return Demonstration (early breastfeeding care specialist), Reinforcement Needed (patient at max potential) OT Short Term Goals Short Term Goals Time Frame: Dec 02, 2022 Eatin Oral hygiene: 4 OT Lamp Inspector Goals Lamp Inspector Goals Time Frame: Dec 30, 2022 (nitially set for 12/16, extended 12/16/22) Acute change in mental status: 1 Inattention: 2 Disorganized thinkin Altered level of consciousness: 2 (PER DAUGHTER REPORT) Eating (QC): 5 Oral Hygiene (QC): 4 Toileting Hygiene (QC): 3 Shower/Bathe Self (QC): 3 Upper Body Dressing (QC): 4 Lower Body Dressing (QC): 3 On/Off Footwear (QC): 3 1=Demonstrate adherence to instructed precautions during ADL tasks. 2=Patient will verbalize/demonstrate understanding of assistive devices/modifications for ADL. 3=Patient will improve strength/tolerance for activity to enable patient to perf orm ADL's. OT Education/Plan Problem List/Assessment Assessment: Decreased Activ Tolerance, Decreased UE Strength, Impaired Bed Mobility, Impaired Cognition, Impaired Coordination, Impaired Funct Balance, Impaired Self-Care Skills, Restricted Funct UE ROM Discharge Recommendations Plan/Recommendations: Continue POC Treatment Plan/Plan of Care Treatment,Training & Education: Yes Patient would benefit from OT for education, treatment and training to promote independence in ADL's, mobility, safety and/or upper extremity function for ADL's. Plan of Care: ADL Retraining, Caregiver Training, Cognitive Retraining, Concurrent Therapy, Functional Mobility, Group Exercise/Act as Ind, UE Funct Exercise/Act, UE Neuromus Re-Ed/Coord Treatment Duration: Dec 09, 2022 Frequency: At least 5 of 7 days/Wk (IRF) Estimated Hrs Per Day: .25 hour per day Agreement: Yes Rehab Potential: Guarded Time Start Time: 09:50 Stop Time: 10:10 DATE: Dec 28, 2022 Total Time Billed (hr/min): 20 Billed Treatment Time ADL 20 min MIK MAHMOOD OT Dec 28, 2022 11:00
--- NOTE | 2022-12-28 11:52 | Physical Therapy Daily Note ---
PT Daily Note-Current Subjective Patient sitting in chair upon PT arrival, agreeable to treatment. Patient rates pain currently at 0/10. Nurse requests to get patient to the toilet post PT treatment as then need to do a bladder scan afterwards. Pain Section J - Health Conditions 1. Rarely or not at all 2. Occasionally 3. Frequently 4. Almost constantly 8. Unable to answer Pain Effect on Sleep: 8 Pain Interference with Therapy: 8 Pain Interference w/Day-to-Day: 8 Transfers SCALE: Activities may be completed with or without assistive devices. 0-Jrbwnfgswj-cbiupsj completes the activity by him/herself with no assistance from a helper. 5-Set-up or Clean-up Assistance-helper sets up or cleans up; patient completes activity. [place] assists only prior to or following the activity. 4-Supervision or Touching Assistance-helper provides verbal cues and/or touc rafael/steadying and/or contact guard assistance as patient completes activity. Assistance may be provided throughout the activity or intermittently. 3-Partial/Moderate Assistance-helper does LESS THAN HALF the effort. [place] lifts, holds or supports trunk or limbs, but provides less than half the effort. 2-Substantial/Maximal Assistance-helper does MORE THAN HALF the effort. [place] lifts or holds trunk or limbs and provides more than half the effort. 9-Hpmshpidy-ednawd does ALL the effort. Patient does none of the effort to complete the activity. Or, the assistance of 2 or more helpers is required for the patient to complete the activity. If activity was not attempted, code reason: 7-Patient Refused. 9-Not Applicable-not attempted and the patient did not perform the activity before the current illness, exacerbation or injury. 10-Not Attempted due to Environmental Limitations-(lack of equipment, weather restraints, etc.). 88-Not Attempted due to Medical Conditions or Safety Concerns. Sit to Stand (QC): 4 Toilet Transfer (QC): 4 Weight Bearing Right Lower Extremity: Right Full Weight Bearing Left Lower Extremity: Left Full Weight Bearing Gait Training Does the Patient Walk?: Yes Distance: 100' Walk 10 feet (QC): 4 Walk 50 ft with 2 Turns(QC): 4 Gait Persons Needed: 1 Gait Assistive Device: FWW Assessment Current Status: Fair Progress Patient performs all observed transfers with SBA. Patient ambulates 100 feet with FWW, with SBA and verbal cues for safety, progression, posture and balance. Patient on toilet post treatment with daughter in the room and nursing notified, call light in reach. PT Long-Term Goals Rail Signal Worker Goals PT Long-Term Goals Time Frame: Jan 28, 2023 Roll Left & Right (QC): 4 Sit to Lying (QC): 4 Lying-Sitting on Side/Bed(QC): 4 Sit to Stand (QC): 4 Chair/Qtd-qu-Hoxri Xfer(QC): 4 Toilet Transfer (QC): 4 Car Transfer (QC): 4 Does the Patient Walk: Yes Walk 10 feet (QC): 4 Walk 50ft with 2 Turns (QC): 4 Walk 150 ft (QC): 4 Walking 10ft on Uneven Surface: 4 1 Step (curb) (QC): 4 4 Steps (QC): 9 12 Steps (QC): 9 Picking up an Object (QC): 9 Wheel 50 feet with 2 turns (QC: 9 Type: N/A Wheel 150 feet: 9 Type: N/A PT Plan Treatment/Plan Treatment Plan: Continue Plan of Care Treatment Plan: Bed Mobility, Education, Functional Activity [place], Functional Strength, Gait, Safety, Therapeutic Exercise, Transfers Treatment Duration: Jan 28, 2023 Frequency: 6 times per week Estimated Hrs Per Day: .25 hour per day Patient and/or Family Agrees t: Yes Safety Risks/Education Patient Education: Gait Training, Transfer Techniques Teaching Recipient: Patient, Family Teaching Methods: Demonstration, Discussion Response to Teaching: Verbalize Understanding, Return Demonstration Time Time In: 1110 Time Out: 1125 DATE: Dec 28, 2022 Total Billed Treatment Time: 15 Total Billed Treatment Visit, GT VIVIENNE WHALEN PT Dec 28, 2022 11:52
[2022-12-28] MEDS: ENOXAPARIN 40 MG/0.4 ML SYRINGE SC SCH (12:07)
--- NOTE | 2022-12-28 16:42 | Progress Note - Hospitalist ---
Subjective HPI/CC On Admission Date Seen by Provider: Dec 28, 2022 Time Seen by Provider: 11:10 Subjective/Events-last exam She is sitting in her chair. She is trying to take a nap. She didn't sleep well last night. She has no other complaints. Objective Exam Vital Signs Vital Signs Date Time Temp Pulse Resp B/P (MAP) Pulse Ox O2 Delivery O2 Flow Rate FiO2 12/28/22 08:25 36.7 98 17 125/71 (89) 96 Room Air 12/26/22 05:47 0.00 Capillary Refill : General Appearance: No Apparent Distress, Chronically ill Respiratory: Lungs Clear, No Respiratory Distress Cardiovascular: Regular Rate, Rhythm, No Murmur Gastrointestinal: Normal Bowel Sounds, Soft Extremity: Normal Inspection, No Pedal Edema Neurologic/Psychiatric: Alert, Normal Mood/Affect Results/Procedures Lab Patient resulted labs reviewed. Imaging: Reviewed Imaging Report Assessment/Plan Assessment and Plan Assess & Plan/Chief Complaint Delirium Likely dementia CT head with chronic atrophic changes Delirium improving Recurrent UTI due to Enterococcus Macrobid Chronic respiratory failure with hypoxia Stable on room air, supplemental oxygen as needed at night Debility PT/OT Continue swing bed SW following, updated clinicals sent to [place] HTN HLD GERD CAD Continue home meds DVT ppx: Lovenox Pyelonephritis, resolved EDITH, resolved Constipation, resolved COVID, resolved Recurrent UTI, resolved Diagnosis/Problems Diagnosis/Problems (1) Debility Status: Acute (2) Delirium Status: Acute (3) Advanced age Status: Chronic (4) Poor prognosis Status: Acute (5) EDITH (acute kidney injury) Status: Resolved Resolution Date/Time: 11/30/22 @ 16:58 (6) UTI (urinary tract infection) Status: Acute (7) Pyelonephritis Status: Resolved Resolution Date/Time: 11/30/22 @ 16:58 (8) Metabolic encephalopathy Status: Resolved Resolution Date/Time: 12/17/22 @ 18:36 (9) COVID-19 Status: Resolved Resolution Date/Time: 12/13/22 @ 15:52 GREER MILLAN MD Dec 28, 2022 16:42
[2022-12-28 19:32] VITALS: BP 168/71
[2022-12-28] MEDS: MELATONIN 3 MG TABLET PO PRN (20:50)
[2022-12-28] MEDS: FENOFIBRATE, Micronized 134 MG CAPSULE PO SCH (20:50)
[2022-12-28] MEDS: THERAPEUTIC MULTIVITAMIN W/MINERALS TABLET PO SCH (20:50)
[2022-12-28] MEDS: LACTOBACILLUS ACIDOPHILUS (PROBIOTIC) CAPSULE PO SCH (20:50)
[2022-12-28] MEDS: MAGNESIUM OXIDE 400 MG TABLET PO SCH (20:50)
[2022-12-28] MEDS: ASPIRIN enteric coated 81MG TABLET PO SCH (20:50)
[2022-12-29 08:01] VITALS: BP 178/87
[2022-12-29] MEDS: NITROFURANTOIN Monohydrate/Macro 100 MG CAPSULE PO SCH ×2 (08:45→18:04)
[2022-12-29] MEDS: POTASSIUM CHLORIDE 10 MEQ TABLET PO SCH (08:48)
[2022-12-29] MEDS: hydrALAZINE 25 MG TABLET PO SCH ×3 (08:49→20:24)
[2022-12-29] MEDS: PANTOPRAZOLE 40 MG TABLET PO SCH (08:50)
[2022-12-29] MEDS: amLODIPine 5 MG TABLET PO SCH (08:50)
[2022-12-29] MEDS: ACETAMINOPHEN 500 MG TABLET PO SCH ×3 (08:50→20:23)
[2022-12-29] MEDS: LOSARTAN 100 MG TABLET PO SCH (08:51)
[2022-12-29] MEDS: CALCIUM POLYCARBOPHIL 625 MG TABLET PO SCH (08:51)
[2022-12-29] MEDS: CLOPIDOGREL 75 MG TABLET PO SCH (08:52)
--- NOTE | 2022-12-29 11:00 | Physical Therapy Daily Note ---
PT Daily Note-Current Subjective Patient much more alert and cooperative on this date. No c/o of pain. Caregiver present Pain Section J - Health Conditions 1. Rarely or not at all 2. Occasionally 3. Frequently 4. Almost constantly 8. Unable to answer Pain Effect on Sleep: 1 Pain Interference with Therapy: 1 Pain Interference w/Day-to-Day: 1 Mental Status Patient Orientation: Person, Place, Time Transfers SCALE: Activities may be completed with or without assistive devices. 7-Hjejqqwkey-zoroilu completes the activity by him/herself with no assistance from a helper. 5-Set-up or Clean-up Assistance-helper sets up or cleans up; patient completes activity. [place] assists only prior to or following the activity. 4-Supervision or Touching Assistance-helper provides verbal cues and/or touching/steadying and/or contact guard assistance as patient completes activity. Assistance may be provided throughout the activity or intermittently. 3-Partial/Moderate Assistance-helper does LESS THAN HALF the effort. [place] lifts, holds or supports trunk or limbs, but provides less than half the effort. 2-Substantial/Maximal Assistance-helper does MORE THAN HALF the effort. [place] lifts or holds trunk or limbs and provides more than half the effort. 1-Yahrbwfjc-uaeurs does ALL the effort. Patient does none of the effort to complete the activity. Or, the assistance of 2 or more helpers is required for the patient to complete the activity. If activity was not attempted, code reason: 7-Patient Refused. 9-Not Applicable-not attempted and the patient did not perform the activity before the current illness, exacerbation or injury. 10-Not Attempted due to Environmental Limitations-(lack of equipment, weather restraints, etc.). 88-Not Attempted due to Medical Conditions or Safety Concerns. Sit to Stand (QC): 4 SBA Weight Bearing Right Lower Extremity: Right Full Weight Bearing Left Lower Extremity: Left Full Weight Bearing Gait Training Distance: 160' Walk 10 feet (QC): 4 Walk 50 ft with 2 Turns(QC): 4 Walk 150 ft (QC): 4 Gait Assistive Device: FWW SBA for safety/slow, short step length Exercises Seated Therapy Exercises: Ankle pumps, Long arc quads, Hip flexion Seated Reps: 15 (x 2 sets) Assessment Patient much improved on this date and is SBA with all mobility. Patient is alert and very pleasant during entire session and performed all activity asked by PT. Continue to increase activity. PT Residential Goals Residential Goals PT Residential Goals Time Frame: Jan 28, 2023 Roll Left & Right (QC): 4 Sit to Lying (QC): 4 Lying-Sitting on Side/Bed(QC): 4 Sit to Stand (QC): 4 Chair/Rel-co-Vxpfe Xfer(QC): 4 Toilet Transfer (QC): 4 Car Transfer (QC): 4 Does the Patient Walk: Yes Walk 10 feet (QC): 4 Walk 50ft with 2 Turns (QC): 4 Walk 150 ft (QC): 4 Walking 10ft on Uneven Surface: 4 1 Step (curb) (QC): 4 4 Steps (QC): 9 12 Steps (QC): 9 Picking up an Object (QC): 9 Wheel 50 feet with 2 turns (QC: 9 Type: N/A Wheel 150 feet: 9 Type: N/A PT Plan Treatment/Plan Treatment Plan: Continue Plan of Care Treatment Plan: Bed Mobility, Education, Functional Activity [place], Functional Strength, Gait, Safety, Therapeutic Exercise, Transfers Treatment Duration: Jan 28, 2023 Frequency: 6 times per week Estimated Hrs Per Day: .25 hour per day Patient and/or Family Agrees t: Yes Time Time In: 1025 Time Out: 1048 DATE: Dec 29, 2022 Total Billed Treatment Time: 23 Total Billed Treatment 1 visit GT 15 min EX 8 min SANTIAGO LOAIZA PT Dec 29, 2022 11:00
[2022-12-29] MEDS: ENOXAPARIN 40 MG/0.4 ML SYRINGE SC SCH (12:03)
--- NOTE | 2022-12-29 13:51 | Occ Therapy Progress Note ---
Therapy Progress Note Patient refused OT services today, Patient states she is too tired for therapy, Patient also declines REC Therapy intervention, Caregiver is present w/ patient when patient refuses. MIK MAHMOOD OT Dec 29, 2022 13:51
[2022-12-29 19:16] VITALS: BP 185/87
[2022-12-29] MEDS: FENOFIBRATE, Micronized 134 MG CAPSULE PO SCH (20:23)
[2022-12-29] MEDS: ASPIRIN enteric coated 81MG TABLET PO SCH (20:23)
[2022-12-29] MEDS: THERAPEUTIC MULTIVITAMIN W/MINERALS TABLET PO SCH (20:23)
[2022-12-29] MEDS: MAGNESIUM OXIDE 400 MG TABLET PO SCH (20:23)
[2022-12-29] MEDS: LACTOBACILLUS ACIDOPHILUS (PROBIOTIC) CAPSULE PO SCH (20:23)
[2022-12-29] MEDS: MELATONIN 3 MG TABLET PO PRN (20:24)
[2022-12-29 21:30] VITALS: BP 168/70
[2022-12-30 07:59] VITALS: BP_SYST 122; BP_SYST 187; BP_DIAS 82; BP_DIAS 98
[2022-12-30] MEDS: CALCIUM POLYCARBOPHIL 625 MG TABLET PO SCH (08:02)
[2022-12-30] MEDS: PANTOPRAZOLE 40 MG TABLET PO SCH (08:02)
[2022-12-30] MEDS: CLOPIDOGREL 75 MG TABLET PO SCH (08:02)
[2022-12-30] MEDS: POTASSIUM CHLORIDE 10 MEQ TABLET PO SCH (08:02)
[2022-12-30] MEDS: amLODIPine 5 MG TABLET PO SCH (08:03)
[2022-12-30] MEDS: ACETAMINOPHEN 500 MG TABLET PO SCH ×3 (08:03→20:08)
[2022-12-30] MEDS: hydrALAZINE 25 MG TABLET PO SCH ×3 (08:03→20:09)
[2022-12-30] MEDS: LOSARTAN 100 MG TABLET PO SCH (08:03)
[2022-12-30] MEDS: NITROFURANTOIN Monohydrate/Macro 100 MG CAPSULE PO SCH ×2 (08:03→17:49)
--- NOTE | 2022-12-30 10:22 | Physical Therapy Daily Note ---
PT Daily Note-Current Subjective Patient more agitated and resistant to participate with therapy. PT/OT cotreat on this date due to patient's refusal to participate with OT yesterday. Pain Section J - Health Conditions 1. Rarely or not at all 2. Occasionally 3. Frequently 4. Almost constantly 8. Unable to answer Pain Effect on Sleep: 8 Pain Interference with Therapy: 8 Pain Interference w/Day-to-Day: 8 Mental Status Patient Orientation: Person Transfers SCALE: Activities may be completed with or without assistive devices. 4-Bahrgveniz-zhgmqpp completes the activity by him/herself with no assistance from a helper. 5-Set-up or Clean-up Assistance-helper sets up or cleans up; patient completes activity. [place] assists only prior to or following the activity. 4-Supervision or Touching Assistance-helper provides verbal cues and/or touching/steadying and/or contact guard assistance as patient completes activity. Assistance may be provided throughout the activity or intermittently. 3-Partial/Moderate Assistance-helper does LESS THAN HALF the effort. [place] lifts, holds or supports trunk or limbs, but provides less than half the effort. 2-Substantial/Maximal Assistance-helper does MORE THAN HALF the effort. [place] lifts or holds trunk or limbs and provides more than half the effort. 3-Ajlxcyqab-ujovvz does ALL the effort. Patient does none of the effort to complete the activity. Or, the assistance of 2 or more helpers is required for the patient to complete the activity. If activity was not attempted, code reason: 7-Patient Refused. 9-Not Applicable-not attempted and the patient did not perform the activity before the current illness, exacerbation or injury. 10-Not Attempted due to Environmental Limitations-(lack of equipment, weather restraints, etc.). 88-Not Attempted due to Medical Conditions or Safety Concerns. Sit to Stand (QC): 4 Toilet Transfer (QC): 4 Weight Bearing Right Lower Extremity: Right Full Weight Bearing Left Lower Extremity: Left Full Weight Bearing Gait Training Distance: 160' Walk 10 feet (QC): 4 Walk 50 ft with 2 Turns(QC): 4 Walk 150 ft (QC): 4 Gait Assistive Device: FWW CGA for safety/trunk flexed posture with short step length/able to negotiate FWW Exercises Seated Therapy Exercises: Ankle pumps, Long arc quads, Hip flexion Seated Reps: 15 ( x 2 sets) Assessment Patient confused on this date and more resistant to participate with therapy. PT educated patient on importance of participating with therapy to increase strength and mobility. Patient performed same activity as yesterday and was able to perform sit to stand from toilet CGA. Refer to OT notes for details on ADL's. PT Software Support Technician Goals Software Support Technician Goals PT Nursing Home Goals Time Frame: Jan 28, 2023 Roll Left & Right (QC): 4 Sit to Lying (QC): 4 Lying-Sitting on Side/Bed(QC): 4 Sit to Stand (QC): 4 Chair/Smh-mi-Ywybx Xfer(QC): 4 Toilet Transfer (QC): 4 Car Transfer (QC): 4 Does the Patient Walk: Yes Walk 10 feet (QC): 4 Walk 50ft with 2 Turns (QC): 4 Walk 150 ft (QC): 4 Walking 10ft on Uneven Surface: 4 1 Step (curb) (QC): 4 4 Steps (QC): 9 12 Steps (QC): 9 Picking up an Object (QC): 9 Wheel 50 feet with 2 turns (QC: 9 Type: N/A Wheel 150 feet: 9 Type: N/A PT Plan Treatment/Plan Treatment Plan: Continue Plan of Care Treatment Plan: Bed Mobility, Education, Functional Activity [place], Functional Strength, Gait, Safety, Therapeutic Exercise, Transfers Treatment Duration: Jan 28, 2023 Frequency: 6 times per week Estimated Hrs Per Day: .25 hour per day Patient and/or Family Agrees t: Yes Time Time In: 915 Time Out: 940 DATE: Dec 30, 2022 Total Billed Treatment Time: 25 Total Billed Treatment 1 visit GT 12 min FA 13 min (PT/OT cotreat) SANTIAGO LOAIZA PT Dec 30, 2022 10:22
--- NOTE | 2022-12-30 10:38 | Occupational Ther Daily Note ---
OT Current Status-Daily Note Subjective Resistive to participate today, CO treat w/ PT d/t low tolerance w/ separate therapy session and participation level Mental Status/Objective Patient Orientation: Person, Place ADL-Treatment While in recliner w/ BLE elevate patient is able to remove left sock only, Patient is not able to don sock further than laying sock on toes. Patient required visual and tactile cues to locate recliner foot lever and operate to lower Legs to floor. 3 Trials to stand w/ CGA from recliner w/ gait belt and FWW, navigated FWW to bathroom to perform Min assist toilet transfers, Patient is able to lower brief below gluteus fold however does not clear for urination and required min assist to lower brief further. Performs scotty care w/ VC while sitting. Brief is soiled.Patient holds brief down by distal lower extremities however kicks legs and reports she can't do it. OTR dons brief over feet and to mid thigh. Patient pulls brief up in front only to scotty area and required completion assistance d/t poor balance and fatigue. Demonstrated sustained and max level of performance during past week. Therapy Code Descriptions/Definitions Functional [place] Measure: 0=Not Assessed/NA 4=Minimal Assistance 1=Total Assistance 5=Supervision or Setup 2=Maximal Assistance 6=Modified [place] 3=Moderate Assistance 7=Complete IndependenceSCALE: Activities may be completed with or without assistive devices. 7-Hztprzlbxd-degdowb completes the activity by him/herself with no assistance from a helper. 5-Set-up or Clean-up Assistance-helper sets up or cleans up; patient completes activity. [place] assists only prior to or following the activity. 4-Supervision or Touching Assistance-helper provides verbal cues and/or touching/steadying and/or contact guard assistance as patient completes activity. Assistance may be provided throughout the activity or intermittently. 3-Partial/Moderate Assistance-helper does LESS THAN HALF the effort. [place] lifts, holds or supports trunk or limbs, but provides less than half the effort. 2-Substantial/Maximal Assistance-helper does MORE THAN HALF the effort. [place] lifts or holds trunk or limbs and provides more than half the effort. 3-Dmlzwsoxa-cnoucu does ALL the effort. Patient does none of the effort to complete the activity. Or, the assistance of 2 or more helpers is required for the patient to complete the activity. If activity was not attempted, code reason: 7-Patient Refused. 9-Not Applicable-not attempted and the patient did not perform the activity before the current illness, exacerbation or injury. 10-Not Attempted due to Environmental Limitations-(lack of equipment, weather restraints, etc.). 88-Not Attempted due to Medical Conditions or Safety Concerns. Eating (QC): 4 Oral Hygiene (QC): 4 Lower Body Dressing (QC): 2 On/Off Footwear: 2 Toileting Hygiene (QC): 4 Toilet Transfer (QC): 4 Education OT Patient Education: Correct positioning, Modified ADL techniques, Progress toward Goal/Update tx plan, Purpose of tx/functional activities, Reviewed precautions, Rehab process, Safety issues, Transfer techniques, Use of adapted equipment Teaching Recipient: Patient, Family Teaching Methods: Demonstration, Discussion Response to Teaching: Verbalize Understanding (max potential) OT Short Term Goals Short Term Goals Time Frame: Dec 02, 2022 Eatin Oral hygiene: 4 OT Fpc Goals Fpc Goals Time Frame: Jan 13, 2023 (nitially set for 12/16, extended 12/16/22, extended 12-30-22 to 01/13/23) Acute change in mental status: 1 Inattention: 2 Disorganized thinkin Altered level of consciousness: 2 (PER DAUGHTER REPORT) Eating (QC): 5 Oral Hygiene (QC): 4 (met 12/30/22) Toileting Hygiene (QC): 3 Shower/Bathe Self (QC): 3 Upper Body Dressing (QC): 4 (met 12-30-22) Lower Body Dressing (QC): 3 On/Off Footwear (QC): 3 1=Demonstrate adherence to instructed precautions during ADL tasks. 2=Patient will verbalize/demonstrate understanding of assistive devices/modifications for ADL. 3=Patient will improve strength/tolerance for activity to enable patient to perform ADL's. OT Education/Plan Problem List/Assessment Assessment: Decreased Activ Tolerance, Decreased Safety Aware, Decreased UE Strength, Impaired Cognition, Impaired Coordination, Impaired Funct Balance, Impaired Self-Care Skills Discharge Recommendations Plan/Recommendations: Continue POC Treatment Plan/Plan of Care Patient would benefit from OT for education, treatment and training to promote independence in ADL's, mobility, safety and/or upper extremity function for ADL's. Plan of Care: ADL Retraining, Caregiver Training, Cognitive Retraining, Concurrent Therapy, Functional Mobility, Group Exercise/Act as Ind, UE Funct Exercise/Act, UE Neuromus Re-Ed/Coord Treatment Duration: Dec 09, 2022 Frequency: At least 5 of 7 days/Wk (IRF) Estimated Hrs Per Day: .25 hour per day Agreement: Yes Rehab Potential: Guarded Time Start Time: 09:15 Stop Time: 09:40 DATE: Dec 30, 2022 Total Time Billed (hr/min): 25 Billed Treatment Time adl 25 min, co-tx MIK MAHMOOD OT Dec 30, 2022 10:38
[2022-12-30 11:53] VITALS: BP 140/63
[2022-12-30] MEDS: ENOXAPARIN 40 MG/0.4 ML SYRINGE SC SCH (12:45)
--- NOTE | 2022-12-30 15:50 | Progress Note - Hospitalist ---
Subjective HPI/CC On Admission Date Seen by Provider: Dec 30, 2022 Time Seen by Provider: 11:50 Subjective/Events-last exam She is taking a nap. She has already been up with therapy. She has no complaints. Objective Exam Vital Signs Vital Signs Date Time Temp Pulse Resp B/P (MAP) Pulse Ox O2 Delivery O2 Flow Rate FiO2 12/30/22 11:53 140/63 (88) 12/30/22 08:45 Room Air 12/30/22 07:59 36.7 65 16 96 Capillary Refill : General Appearance: No Apparent Distress, Chronically ill Respiratory: Lungs Clear, No Respiratory Distress Cardiovascular: Regular Rate, Rhythm, No Murmur Gastrointestinal: Normal Bowel Sounds, Soft Extremity: Normal Inspection, No Pedal Edema Neurologic/Psychiatric: Alert, Normal Mood/Affect Results/Procedures Lab Patient resulted labs reviewed. Imaging: Reviewed Imaging Report Assessment/Plan Assessment and Plan Assess & Plan/Chief Complaint Delirium Likely dementia CT head with chronic atrophic changes Delirium improving Recurrent UTI due to Enterococcus Macrobid Chronic respiratory failure with hypoxia Stable on room air, supplemental oxygen as needed at night Debility PT/OT Continue swing bed SW following, updated clinicals sent to [facility] HTN HLD GERD CAD Continue home meds DVT ppx: Lovenox Pyelonephritis, resolved EDITH, resolved Constipation, resolved COVID, resolved Recurrent UTI, resolved Diagnosis/Problems Diagnosis/Problems (1) Debility Status: Acute (2) Delirium Status: Acute (3) Advanced age Status: Chronic (4) Poor prognosis Status: Acute (5) EDITH (acute kidney injury) Status: Resolved Resolution Date/Time: 11/30/22 @ 16:58 (6) UTI (urinary tract infection) Status: Acute (7) Pyelonephritis Status: Resolved Resolution Date/Time: 11/30/22 @ 16:58 (8) Metabolic encephalopathy Status: Resolved Resolution Date/Time: 12/17/22 @ 18:36 (9) COVID-19 Status: Resolved Resolution Date/Time: 12/13/22 @ 15:52 GREER MILLAN MD Dec 30, 2022 15:50
[2022-12-30 19:58] VITALS: BP 168/70
[2022-12-30] MEDS: ASPIRIN enteric coated 81MG TABLET PO SCH (20:08)
[2022-12-30] MEDS: LACTOBACILLUS ACIDOPHILUS (PROBIOTIC) CAPSULE PO SCH (20:08)
[2022-12-30] MEDS: FENOFIBRATE, Micronized 134 MG CAPSULE PO SCH (20:08)
[2022-12-30] MEDS: THERAPEUTIC MULTIVITAMIN W/MINERALS TABLET PO SCH (20:09)
[2022-12-30] MEDS: MAGNESIUM OXIDE 400 MG TABLET PO SCH (20:09)
[2022-12-31 07:31] VITALS: BP 162/69
[2022-12-31] MEDS: NITROFURANTOIN Monohydrate/Macro 100 MG CAPSULE PO SCH ×2 (08:33→17:40)
[2022-12-31] MEDS: POTASSIUM CHLORIDE 10 MEQ TABLET PO SCH (08:34)
[2022-12-31] MEDS: amLODIPine 5 MG TABLET PO SCH (08:34)
[2022-12-31] MEDS: CALCIUM POLYCARBOPHIL 625 MG TABLET PO SCH (08:34)
[2022-12-31] MEDS: CLOPIDOGREL 75 MG TABLET PO SCH (08:34)
[2022-12-31] MEDS: hydrALAZINE 25 MG TABLET PO SCH ×3 (08:34→20:55)
[2022-12-31] MEDS: PANTOPRAZOLE 40 MG TABLET PO SCH (08:34)
[2022-12-31] MEDS: LOSARTAN 100 MG TABLET PO SCH (08:34)
[2022-12-31] MEDS: ACETAMINOPHEN 500 MG TABLET PO SCH ×3 (08:34→20:55)
--- NOTE | 2022-12-31 10:21 | Physical Therapy Daily Note ---
PT Daily Note-Current Subjective Patient sitting in chair upon PT arrival, agreeable to treatment. Rates pain at 4/10 currently in knees. Pain Section J - Health Conditions 1. Rarely or not at all 2. Occasionally 3. Frequently 4. Almost constantly 8. Unable to answer Pain Effect on Sleep: 8 Pain Interference with Therapy: 8 Pain Interference w/Day-to-Day: 8 Transfers SCALE: Activities may be completed with or without assistive devices. 7-Xphgsgsycu-gkurmmi completes the activity by him/herself with no assistance from a helper. 5-Set-up or Clean-up Assistance-helper sets up or cleans up; patient completes activity. [place] assists only prior to or following the activity. 4-Supervision or Touching Assistance-helper provides verbal cues and/or touching/steadying and/or contact guard assistance as patient completes activity. Assistance may be provided throughout the activity or intermittently. 3-Partial/Moderate Assistance-helper does LESS THAN HALF the effort. [place] lifts, holds or supports trunk or limbs, but provides less than half the effort. 2-Substantial/Maximal Assistance-helper does MORE THAN HALF the effort. [place] lifts or holds trunk or limbs and provides more than half the effort. 4-Gvuudbuke-hqqtpr does ALL the effort. Patient does none of the effort to complete the activity. Or, the assistance of 2 or more helpers is required for the patient to complete the activity. If activity was not attempted, code reason: 7-Patient Refused. 9-Not Applicable-not attempted and the patient did not perform the activity before the current illness, exacerbation or injury. 10-Not Attempted due to Environmental Limitations-(lack of equipment, weather restraints, etc.). 88-Not Attempted due to Medical Conditions or Safety Concerns. Sit to Stand (QC): 4 Chair/Jxe-ja-Jwzao Xfer(QC): 4 Weight Bearing Right Lower Extremity: Right Full Weight Bearing Left Lower Extremity: Left Full Weight Bearing Gait Training Does the Patient Walk?: Yes Distance: 150' Walk 10 feet (QC): 4 Walk 50 ft with 2 Turns(QC): 4 Walk 150 ft (QC): 4 Gait Persons Needed: 1 Gait Assistive Device: FWW Assessment Current Status: Poor Progress, Fair Progress Patient performs all observed transfers with SBA/CGA. Patient ambulates 150' with FWW, with SBA and verbal cues for safety, progression, posture and balance. Patient in chair post treatment with daughter in the room and nursing notified, call light in reach. 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 Goals Ballast Cleaning Machine Operator Goals 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 Goals Time Frame: Jan 28, 2023 Roll Left & Right (QC): 4 Sit to Lying (QC): 4 Lying-Sitting on Side/Bed(QC): 4 Sit to Stand (QC): 4 Chair/Hud-bc-Hwhfq Xfer(QC): 4 Toilet Transfer (QC): 4 Car Transfer (QC): 4 Does the Patient Walk: Yes Walk 10 feet (QC): 4 Walk 50ft with 2 Turns (QC): 4 Walk 150 ft (QC): 4 Walking 10ft on Uneven Surface: 4 1 Step (curb) (QC): 4 4 Steps (QC): 9 12 Steps (QC): 9 Picking up an Object (QC): 9 Wheel 50 feet with 2 turns (QC: 9 Type: N/A Wheel 150 feet: 9 Type: N/A PT Plan Treatment/Plan Treatment Plan: Continue Plan of Care Treatment Plan: Bed Mobility, Education, Functional Activity [place], Functional Strength, Gait, Safety, Therapeutic Exercise, Transfers Treatment Duration: Jan 28, 2023 Frequency: 6 times per week Estimated Hrs Per Day: .25 hour per day Patient and/or Family Agrees t: Yes Safety Risks/Education Patient Education: Gait Training, Transfer Techniques Teaching Recipient: Patient, Family Teaching Methods: Demonstration, Discussion Response to Teaching: Reinforcement Needed Time Time In: 946 Time Out: 956 DATE: Dec 31, 2022 Total Billed Treatment Time: 10 Total Billed Treatment Visit, GT VIVIENNE WHALEN PT Dec 31, 2022 10:21
[2022-12-31] MEDS: ENOXAPARIN 40 MG/0.4 ML SYRINGE SC SCH (12:06)
[2022-12-31 19:40] VITALS: BP 162/74
[2022-12-31] MEDS: ASPIRIN enteric coated 81MG TABLET PO SCH (20:55)
[2022-12-31] MEDS: LACTOBACILLUS ACIDOPHILUS (PROBIOTIC) CAPSULE PO SCH (20:55)
[2022-12-31] MEDS: MAGNESIUM OXIDE 400 MG TABLET PO SCH (20:55)
[2022-12-31] MEDS: FENOFIBRATE, Micronized 134 MG CAPSULE PO SCH (20:55)
[2022-12-31] MEDS: THERAPEUTIC MULTIVITAMIN W/MINERALS TABLET PO SCH (20:56)
[2023-01-01 07:44] VITALS: BP 172/78
[2023-01-01] MEDS: amLODIPine 5 MG TABLET PO SCH (08:35)
[2023-01-01] MEDS: PANTOPRAZOLE 40 MG TABLET PO SCH (08:35)
[2023-01-01] MEDS: POTASSIUM CHLORIDE 10 MEQ TABLET PO SCH (08:36)
[2023-01-01] MEDS: ACETAMINOPHEN 500 MG TABLET PO SCH ×3 (08:36→21:06)
[2023-01-01] MEDS: LOSARTAN 100 MG TABLET PO SCH (08:36)
[2023-01-01] MEDS: hydrALAZINE 25 MG TABLET PO SCH ×3 (08:36→21:05)
[2023-01-01] MEDS: CLOPIDOGREL 75 MG TABLET PO SCH (08:36)
[2023-01-01] MEDS: CALCIUM POLYCARBOPHIL 625 MG TABLET PO SCH (08:36)
[2023-01-01] MEDS: ENOXAPARIN 40 MG/0.4 ML SYRINGE SC SCH (12:06)
[2023-01-01 19:50] VITALS: BP 157/72
[2023-01-01] MEDS: FENOFIBRATE, Micronized 134 MG CAPSULE PO SCH (21:05)
[2023-01-01] MEDS: ASPIRIN enteric coated 81MG TABLET PO SCH (21:05)
[2023-01-01] MEDS: LACTOBACILLUS ACIDOPHILUS (PROBIOTIC) CAPSULE PO SCH (21:05)
[2023-01-01] MEDS: MAGNESIUM OXIDE 400 MG TABLET PO SCH (21:06)
[2023-01-01] MEDS: THERAPEUTIC MULTIVITAMIN W/MINERALS TABLET PO SCH (21:06)
[2023-01-02 07:59] VITALS: BP 177/76
[2023-01-02] MEDS: CLOPIDOGREL 75 MG TABLET PO SCH (09:59)
[2023-01-02] MEDS: PANTOPRAZOLE 40 MG TABLET PO SCH (09:59)
[2023-01-02] MEDS: POTASSIUM CHLORIDE 10 MEQ TABLET PO SCH (09:59)
[2023-01-02] MEDS: ACETAMINOPHEN 500 MG TABLET PO SCH ×3 (09:59→20:38)
[2023-01-02] MEDS: CALCIUM POLYCARBOPHIL 625 MG TABLET PO SCH (09:59)
[2023-01-02] MEDS: LOSARTAN 100 MG TABLET PO SCH (09:59)
[2023-01-02] MEDS: hydrALAZINE 25 MG TABLET PO SCH ×3 (10:00→20:38)
[2023-01-02] MEDS: amLODIPine 5 MG TABLET PO SCH (10:00)
--- NOTE | 2023-01-02 10:53 | Progress Note - Hospitalist ---
Subjective HPI/CC On Admission Date Seen by Provider: Jan 02, 2023 Subjective/Events-last exam Pt reports doing ok. Tired but is already up in chair and dressed before PT has seen her. Daughter asks about checking her labs again. Objective Exam Vital Signs Vital Signs Date Time Temp Pulse Resp B/P (MAP) Pulse Ox O2 Delivery O2 Flow Rate FiO2 01/02/23 07:59 36.7 67 16 177/76 (109) 94 Room Air 01/01/23 08:00 0.00 Capillary Refill : General Appearance: No Apparent Distress, Chronically ill Respiratory: Lungs Clear, No Respiratory Distress Cardiovascular: Regular Rate, Rhythm Neurologic/Psychiatric: Alert, Oriented x3 (to major details) Results/Procedures Lab Patient resulted labs reviewed. Imaging: Reviewed Imaging Report Assessment/Plan Assessment and Plan Assess & Plan/Chief Complaint Delirium- improved Likely dementia CT head with chronic atrophic changes Delirium continues to improve Recurrent UTI due to Enterococcus Macrobid complete 12/31 Chronic respiratory failure with hypoxia Stable on room air, supplemental oxygen as needed at night Debility PT/OT Continue swing bed following, updated clinicals sent to [facility]- awaiting response HTN HLD GERD CAD Continue home meds DVT ppx: Lovenox Pyelonephritis, resolved EDITH, resolved Constipation, resolved COVID, resolved Recurrent UTI, resolved KADY KELLY MD Jan 02, 2023 10:53
--- NOTE | 2023-01-02 11:15 | Physical Therapy Daily Note ---
PT Daily Note-Current Subjective Patient agrees to PT. Pain Section J - Health Conditions 1. Rarely or not at all 2. Occasionally 3. Frequently 4. Almost constantly 8. Unable to answer Pain Effect on Sleep: 8 Pain Interference with Therapy: 8 Pain Interference w/Day-to-Day: 8 Transfers SCALE: Activities may be completed with or without assistive devices. 6-Bspjlpqogg-piktczt completes the activity by him/herself with no assistance from a helper. 5-Set-up or Clean-up Assistance-helper sets up or cleans up; patient completes activity. [place] assists only prior to or following the activity. 4-Supervision or Touching Assistance-helper provides verbal cues and/or touching/steadying and/or contact guard assistance as patient completes activity. Assistance may be provided throughout the activity or intermittently. 3-Partial/Moderate Assistance-helper does LESS THAN HALF the effort. [place] lifts, holds or supports trunk or limbs, but provides less than half the effort. 2-Substantial/Maximal Assistance-helper does MORE THAN HALF the effort. [place] lifts or holds trunk or limbs and provides more than half the effort. 2-Tsuxqnyib-gomaau does ALL the effort. Patient does none of the effort to complete the activity. Or, the assistance of 2 or more helpers is required for the patient to complete the activity. If activity was not attempted, code reason: 7-Patient Refused. 9-Not Applicable-not attempted and the patient did not perform the activity before the current illness, exacerbation or injury. 10-Not Attempted due to Environmental Limitations-(lack of equipment, weather restraints, etc.). 88-Not Attempted due to Medical Conditions or Safety Concerns. Sit to Stand (QC): 4 Toilet Transfer (QC): 3 Weight Bearing Right Lower Extremity: Right Full Weight Bearing Left Lower Extremity: Left Full Weight Bearing Gait Training Distance: 150' Walk 10 feet (QC): 4 Walk 50 ft with 2 Turns(QC): 4 Walk 150 ft (QC): 4 Gait Assistive Device: FWW slow, steady gaits sequence Exercises Seated Therapy Exercises: Ankle pumps, Long arc quads, Hip flexion Seated Reps: 15 (x 2 sets) Assessment Patient maintaining LOF with gait and transfers. Patient is SBA to CGA with sit to stand and gait with FWW. Patient requires time to complete all functional tasks. PT Therapist Goals Therapist Goals PT Nursing Home Goals Time Frame: Jan 28, 2023 Roll Left & Right (QC): 4 Sit to Lying (QC): 4 Lying-Sitting on Side/Bed(QC): 4 Sit to Stand (QC): 4 Chair/Dwi-id-Epbmp Xfer(QC): 4 Toilet Transfer (QC): 4 Car Transfer (QC): 4 Does the Patient Walk: Yes Walk 10 feet (QC): 4 Walk 50ft with 2 Turns (QC): 4 Walk 150 ft (QC): 4 Walking 10ft on Uneven Surface: 4 1 Step (curb) (QC): 4 4 Steps (QC): 9 12 Steps (QC): 9 Picking up an Object (QC): 9 Wheel 50 feet with 2 turns (QC: 9 Type: N/A Wheel 150 feet: 9 Type: N/A PT Plan Treatment/Plan Treatment Plan: Continue Plan of Care Treatment Plan: Bed Mobility, Education, Functional Activity [place], Functional Strength, Gait, Safety, Therapeutic Exercise, Transfers Treatment Duration: Jan 28, 2023 Frequency: 6 times per week Estimated Hrs Per Day: .25 hour per day Patient and/or Family Agrees t: Yes Time Time In: 920 Time Out: 943 DATE: Jan 02, 2023 Total Billed Treatment Time: 23 Total Billed Treatment 1 visit EX 9 min GT 14 min SANTIAGO LOAIZA PT Jan 02, 2023 11:15
[2023-01-02] MEDS: ENOXAPARIN 40 MG/0.4 ML SYRINGE SC SCH (12:33)
[2023-01-02] MEDS: NYSTATIN CREAM 30 GM TUBE TP SCH ×2 (12:34→20:46)
--- NOTE | 2023-01-02 15:56 | Occupational Ther Daily Note ---
OT Current Status-Daily Note Subjective Required moderate encouragement to participate. Mental Status/Objective Patient Orientation: Person, Place, [place] ADL-Treatment Daughter groomed patient hair, while patient sat in recliner, no ADLS Therapy Code Descriptions/Definitions Functional [place] Measure: 0=Not Assessed/NA 4=Minimal Assistance 1=Total Assistance 5=Supervision or Setup 2=Maximal Assistance 6=Modified [place] 3=Moderate Assistance 7=Complete IndependenceSCALE: Activities may be completed with or without assistive devices. 0-Etnlfxqbva-hxjsfoo completes the activity by him/herself with no assistance from a helper. 5-Set-up or Clean-up Assistance-helper sets up or cleans up; patient completes activity. [place] assists only prior to or following the activity. 4-Supervision or Touching Assistance-helper provides verbal cues and/or touching/steadying and/or contact guard assistance as patient completes activity. Assistance may be provided throughout the activity or intermittently. 3-Partial/Moderate Assistance-helper does LESS THAN HALF the effort. [place] lifts, holds or supports trunk or limbs, but provides less than half the effort. 2-Substantial/Maximal Assistance-helper does MORE THAN HALF the effort. [place] lifts or holds trunk or limbs and provides more than half the effort. 1-Kmamawghm-veogyr does ALL the effort. Patient does none of the effort to complete the activity. Or, the assistance of 2 or more helpers is required for the patient to complete the activity. If activity was not attempted, code reason: 7-Patient Refused. 9-Not Applicable-not attempted and the patient did not perform the activity before the current illness, exacerbation or injury. 10-Not Attempted due to Environmental Limitations-(lack of equipment, weather restraints, etc.). 88-Not Attempted due to Medical Conditions or Safety Concerns. Other Treatment 11 sit/stand reps frm reclenr, one rest period for 10 seconds at rep #7. Standing functional reach in multidirectional. Patient compensated and reluctantly performed reach w/ trunk rotation and alternation of BUE and crossing midline Education Teaching Recipient: Patient, Family Response to Teaching: Return Demonstration, Reinforcement Needed OT Short Term Goals Short Term Goals Time Frame: Dec 02, 2022 Eatin Oral hygiene: 4 OT Senior Care Goals Senior Care Goals Time Frame: Jan 13, 2023 (nitially set for 12/16, extended 12/16/22, extended 12-30-22 to 01/13/23) Acute change in mental status: 1 Inattention: 2 Disorganized thinkin Altered level of consciousness: 2 (PER DAUGHTER REPORT) Eating (QC): 5 Oral Hygiene (QC): 4 (met 12/30/22) Toileting Hygiene (QC): 3 Shower/Bathe Self (QC): 3 Upper Body Dressing (QC): 4 (met 12-30-22) Lower Body Dressing (QC): 3 On/Off Footwear (QC): 3 1=Demonstrate adherence to instructed precautions during ADL tasks. 2=Patient will verbalize/demonstrate understanding of assistive devices/modific ations for ADL. 3=Patient will improve strength/tolerance for activity to enable patient to perform ADL's. OT Education/Plan Problem List/Assessment Assessment: Decreased Activ Tolerance, Decreased UE Strength, Impaired Bed Mobility, Impaired Cognition, Impaired Self-Care Skills, Restricted Funct UE ROM Discharge Recommendations Plan/Recommendations: Continue POC Patient/Family Goals [place] ON MONDAY Treatment Plan/Plan of Care Treatment,Training & Education: Yes Patient would benefit from OT for education, treatment and training to promote independence in ADL's, mobility, safety and/or upper extremity function for ADL's. Plan of Care: ADL Retraining, Caregiver Training, Cognitive Retraining, Concurrent Therapy, Functional Mobility, Group Exercise/Act as Ind, UE Funct Exercise/Act, UE Neuromus Re-Ed/Coord Treatment Duration: Dec 09, 2022 Frequency: At least 5 of 7 days/Wk (IRF) Estimated Hrs Per Day: .25 hour per day Agreement: Yes Rehab Potential: Guarded Time Start Time: 15:30 Stop Time: 15:50 DATE: Jan 02, 2023 Total Time Billed (hr/min): 20 Billed Treatment Time EX 20 min MIK MAHMOOD OT Jan 02, 2023 15:56
[2023-01-02 19:17] VITALS: BP 155/68
[2023-01-02] MEDS: FENOFIBRATE, Micronized 134 MG CAPSULE PO SCH (20:37)
[2023-01-02] MEDS: LACTOBACILLUS ACIDOPHILUS (PROBIOTIC) CAPSULE PO SCH (20:37)
[2023-01-02] MEDS: ASPIRIN enteric coated 81MG TABLET PO SCH (20:38)
[2023-01-02] MEDS: THERAPEUTIC MULTIVITAMIN W/MINERALS TABLET PO SCH (20:38)
[2023-01-02] MEDS: MAGNESIUM OXIDE 400 MG TABLET PO SCH (20:38)
[2023-01-03 05:58] LABS: HEMATOCRIT 30 % (35-52); HEMOGLOBIN 9.8 g/dL (11.5-16.0); MEAN CORPUSCULAR HEMOGLOBIN 29 pg (25-34); MEAN CORPUSCULAR HGB CONC 32 g/dL (32-36); MEAN CORPUSCULAR VOLUME 90 fL (80-99); MEAN PLATELET VOLUME 9.8 fL (9.0-12.2); PLATELET COUNT 377 10^3/uL (130-400); WHITE BLOOD COUNT 5.9 10^3/uL (4.3-11.0)
[2023-01-03 06:20] LABS: CALCIUM 8.6 MG/DL (8.5-10.1); CREATININE SERUM 0.61 MG/DL (0.60-1.30)
[2023-01-03] MEDS: hydrALAZINE 25 MG TABLET PO SCH ×3 (08:45→20:26)
[2023-01-03] MEDS: amLODIPine 5 MG TABLET PO SCH (08:46)
[2023-01-03] MEDS: ACETAMINOPHEN 500 MG TABLET PO SCH ×3 (08:46→20:27)
[2023-01-03] MEDS: CLOPIDOGREL 75 MG TABLET PO SCH (08:47)
[2023-01-03] MEDS: LOSARTAN 100 MG TABLET PO SCH (08:47)
[2023-01-03] MEDS: PANTOPRAZOLE 40 MG TABLET PO SCH (08:47)
[2023-01-03] MEDS: CALCIUM POLYCARBOPHIL 625 MG TABLET PO SCH (08:47)
[2023-01-03] MEDS: POTASSIUM CHLORIDE 10 MEQ TABLET PO SCH (08:47)
[2023-01-03 08:48] VITALS: BP 150/64
[2023-01-03] MEDS: NYSTATIN CREAM 30 GM TUBE TP SCH ×3 (08:51→20:28)
--- NOTE | 2023-01-03 10:48 | Physical Therapy Daily Note ---
PT Daily Note-Current Subjective Patient agrees to PT. Family present. Patient to transfer to [place] tomorrow per SW. Pain Section J - Health Conditions 1. Rarely or not at all 2. Occasionally 3. Frequently 4. Almost constantly 8. Unable to answer Pain Effect on Sleep: 8 Pain Interference with Therapy: 8 Pain Interference w/Day-to-Day: 8 Transfers SCALE: Activities may be completed with or without assistive devices. 3-Zoxqsqmedj-tuzpfun completes the activity by him/herself with no assistance from a helper. 5-Set-up or Clean-up Assistance-helper sets up or cleans up; patient completes activity. [place] assists only prior to or following the activity. 4-Supervision or Touching Assistance-helper provides verbal cues and/or touchin g/steadying and/or contact guard assistance as patient completes activity. Assistance may be provided throughout the activity or intermittently. 3-Partial/Moderate Assistance-helper does LESS THAN HALF the effort. [place] lifts, holds or supports trunk or limbs, but provides less than half the effort. 2-Substantial/Maximal Assistance-helper does MORE THAN HALF the effort. [place] lifts or holds trunk or limbs and provides more than half the effort. 8-Tdmvfleua-ivudca does ALL the effort. Patient does none of the effort to complete the activity. Or, the assistance of 2 or more helpers is required for the patient to complete the activity. If activity was not attempted, code reason: 7-Patient Refused. 9-Not Applicable-not attempted and the patient did not perform the activity before the current illness, exacerbation or injury. 10-Not Attempted due to Environmental Limitations-(lack of equipment, weather restraints, etc.). 88-Not Attempted due to Medical Conditions or Safety Concerns. Roll Left & Right (QC): 3 Sit to Lying (QC): 2 Lying to Sitting/Side of Bed(Q: 3 Sit to Stand (QC): 4 Chair/Mow-yh-Pistr Xfer(QC): 4 Toilet Transfer (QC): 3 Car Transfer (QC): 3 Weight Bearing Right Lower Extremity: Right Full Weight Bearing Left Lower Extremity: Left Full Weight Bearing Gait Training Distance: 150' Walk 10 feet (QC): 4 Walk 50 ft with 2 Turns(QC): 4 Walk 150 ft (QC): 4 Walking 10ft/uneven surface-QC: 4 Gait Assistive Device: FWW trunk flexed posture/decreased step length Wheelchair Training Does the Pt Use a Wheelchair?: No Wheel 50 ft with 2 turns (QC): 9 Wheel 150 ft (QC): 9 Type of Wheelchair: N/A Stair Training 1 Step (curb) (QC): 88 4 Steps (QC): 9 12 Steps (QC): 9 Balance Picking up an Object (QC): 88 Exercises Seated Therapy Exercises: Ankle pumps Assessment Patient is currently SBA with sit to stand and ambulate with FWW 150'. Patient progressed with treatment plan. Continues to require mod assist with bed mobility due to decreased motor planning. Plan dismissal to [place] tomorrow. PT Special Delivery Mail Carrier Goals Special Delivery Mail Carrier Goals PT Senior Living Goals Time Frame: Jan 28, 2023 Roll Left & Right (QC): 4 Sit to Lying (QC): 4 Lying-Sitting on Side/Bed(QC): 4 Sit to Stand (QC): 4 Chair/Olt-um-Gjsyn Xfer(QC): 4 Toilet Transfer (QC): 4 Car Transfer (QC): 4 Does the Patient Walk: Yes Walk 10 feet (QC): 4 Walk 50ft with 2 Turns (QC): 4 Walk 150 ft (QC): 4 Walking 10ft on Uneven Surface: 4 1 Step (curb) (QC): 4 4 Steps (QC): 9 12 Steps (QC): 9 Picking up an Object (QC): 9 Wheel 50 feet with 2 turns (QC: 9 Type: N/A Wheel 150 feet: 9 Type: N/A PT Plan Treatment/Plan Treatment Plan: Continue Plan of Care Treatment Plan: Bed Mobility, Education, Functional Activity [place], Functional Strength, Gait, Safety, Therapeutic Exercise, Transfers Treatment Duration: Jan 28, 2023 Frequency: 6 times per week Estimated Hrs Per Day: .25 hour per day Patient and/or Family Agrees t: Yes Time Time In: 915 Time Out: 934 DATE: Jan 03, 2023 Total Billed Treatment Time: 19 Total Billed Treatment 1 visit FA 19 min SANTIAGO LOAIZA PT Jan 03, 2023 10:48
[2023-01-03] MEDS: ENOXAPARIN 40 MG/0.4 ML SYRINGE SC SCH (12:16)
--- NOTE | 2023-01-03 15:52 | Occupational Ther Daily Note ---
OT Current Status-Daily Note Subjective REQUIRED MOTIVATION TO PARTICIPATE, PATIENT DAUGHTER WOULD LIKE OT TO ASSIST IN COLOR WASHING OF PATIENT, OT INFORMED PATIENT DAUGHTER NONSKILL AND NO DYE IN HOSPITAL ROOM OR BATHROOM IS PERMITTED.PATIENT AGREES TO CHANGE GOWN Mental Status/Objective Patient Orientation: Person, Place ADL-Treatment OT INTERVENTION W/ UB GARMENTS, PATIENT BECOMES FRUSTRATED DAUGHTER INTERVENES AND PERFORMS DRESSING FOR PATIENT, Therapy Code Descriptions/Definitions Functional [place] Measure: 0=Not Assessed/NA 4=Minimal Assistance 1=Total Assistance 5=Supervision or Setup 2=Maximal Assistance 6=Modified [place] 3=Moderate Assistance 7=Complete IndependenceSCALE: Activities may be completed with or without assistive devices. 1-Atweoiqbrf-podgcfi completes the activity by him/herself with no assistance from a helper. 5-Set-up or Clean-up Assistance-helper sets up or cleans up; patient completes activity. [place] assists only prior to or following the activity. 4-Supervision or Touching Assistance-helper provides verbal cues and/or touchi ng/steadying and/or contact guard assistance as patient completes activity. Assistance may be provided throughout the activity or intermittently. 3-Partial/Moderate Assistance-helper does LESS THAN HALF the effort. [place] lifts, holds or supports trunk or limbs, but provides less than half the effort. 2-Substantial/Maximal Assistance-helper does MORE THAN HALF the effort. [place] lifts or holds trunk or limbs and provides more than half the effort. 3-Yidyxxijm-koyuyr does ALL the effort. Patient does none of the effort to complete the activity. Or, the assistance of 2 or more helpers is required for the patient to complete the activity. If activity was not attempted, code reason: 7-Patient Refused. 9-Not Applicable-not attempted and the patient did not perform the activity before the current illness, exacerbation or injury. 10-Not Attempted due to Environmental Limitations-(lack of equipment, weather restraints, etc.). 88-Not Attempted due to Medical Conditions or Safety Concerns. Eating (QC): 4 Oral Hygiene (QC): 4 Shower/Bathe Self (QC): 3 (PATIENT REMAINS SITTING DUARTAION OF SHOWER, ABLE TO WASH FRONT OF BODY SHULDERS TO KNEES) Upper Body Dressing (QC): 3 Lower Body Dressing (QC): 2 On/Off Footwear: 3 (PERFORMS LLE ONLY) Toileting Hygiene (QC): 3 Toilet Transfer (QC): 4 Education OT Patient Education: Correct positioning, Instructions to caregiver, Modified ADL techniques, Progress toward Goal/Update tx plan, Purpose of tx/functional activities, Reviewed precautions, Rehab process, Safety issues, Transfer techniques, Use of adapted equipment Teaching Recipient: Patient, Family Teaching Methods: Demonstration, Discussion Response to Teaching: Verbalize Understanding, Reinforcement Needed OT Short Term Goals Short Term Goals Time Frame: Dec 02, 2022 Eatin Oral hygiene: 4 OT Sales Management Trainee Goals [facility] Goals Time Frame: Jan 13, 2023 (nitially set for 12/16, extended 12/16/22, extended 12-30-22 to 01/13/23) Acute change in mental status: 1 Inattention: 2 Disorganized thinkin Altered level of consciousness: 2 (PER DAUGHTER REPORT) Eating (QC): 5 Oral Hygiene (QC): 4 (met 12/30/22) Toileting Hygiene (QC): 3 Shower/Bathe Self (QC): 3 Upper Body Dressing (QC): 4 (met 12-30-22) Lower Body Dressing (QC): 3 On/Off Footwear (QC): 3 1=Demonstrate adherence to instructed precautions during ADL tasks. 2=Patient will verbalize/demonstrate understanding of assistive devic es/modifications for ADL. 3=Patient will improve strength/tolerance for activity to enable patient to perform ADL's. OT Education/Plan Problem List/Assessment Assessment: Decreased Activ Tolerance, Decreased Safety Aware, Decreased UE Strength, Impaired Bed Mobility, Impaired Cognition, Impaired Coordination, Impaired Funct Balance, Impaired Self-Care Skills, Restricted Funct UE ROM Discharge Recommendations Plan/Recommendations: Continue POC Therapy Discharge Recommendati: Post Acute OT Treatment Plan/Plan of Care Treatment,Training & Education: Yes Patient would benefit from OT for education, treatment and training to promote independence in ADL's, mobility, safety and/or upper extremity function for ADL's. Plan of Care: ADL Retraining, Caregiver Training, Cognitive Retraining, Concurrent Therapy, Functional Mobility, Group Exercise/Act as Ind, UE Funct Exercise/Act, UE Neuromus Re-Ed/Coord Treatment Duration: Dec 09, 2022 Frequency: At least 5 of 7 days/Wk (IRF) Estimated Hrs Per Day: .25 hour per day Agreement: Yes Rehab Potential: Guarded Time Start Time: 13:00 Stop Time: 13:24 DATE: Jan 03, 2023 Total Time Billed (hr/min): 24 Billed Treatment Time ADL 24 MIN MIK MAHMOOD OT Jan 03, 2023 15:52
[2023-01-03 19:52] VITALS: BP 154/64
[2023-01-03] MEDS: FENOFIBRATE, Micronized 134 MG CAPSULE PO SCH (20:26)
[2023-01-03] MEDS: MELATONIN 3 MG TABLET PO PRN (20:26)
[2023-01-03] MEDS: LACTOBACILLUS ACIDOPHILUS (PROBIOTIC) CAPSULE PO SCH (20:26)
[2023-01-03] MEDS: THERAPEUTIC MULTIVITAMIN W/MINERALS TABLET PO SCH (20:26)
[2023-01-03] MEDS: ASPIRIN enteric coated 81MG TABLET PO SCH (20:26)
[2023-01-03] MEDS: MAGNESIUM OXIDE 400 MG TABLET PO SCH (20:28)
[2023-01-04 08:14] VITALS: BP 151/63
[2023-01-04] MEDS ORDERED: AMLO-250 PO (08:31)
[2023-01-04] MEDS: PANTOPRAZOLE 40 MG TABLET PO SCH (08:50)
[2023-01-04] MEDS: CALCIUM POLYCARBOPHIL 625 MG TABLET PO SCH (08:50)
[2023-01-04] MEDS: ACETAMINOPHEN 500 MG TABLET PO SCH (08:50)
[2023-01-04] MEDS: CLOPIDOGREL 75 MG TABLET PO SCH (08:50)
[2023-01-04] MEDS: LOSARTAN 100 MG TABLET PO SCH (08:50)
[2023-01-04] MEDS: amLODIPine 5 MG TABLET PO SCH (08:50)
[2023-01-04] MEDS: POTASSIUM CHLORIDE 10 MEQ TABLET PO SCH (08:50)
[2023-01-04] MEDS: hydrALAZINE 25 MG TABLET PO SCH (08:51)
[2023-01-04] MEDS: NYSTATIN CREAM 30 GM TUBE TP SCH (08:52)
--- NOTE | 2023-01-04 09:27 | Discharge Inst-Simple/Standard ---
Discharge Inst-Standard Discharge Medications New, Converted or Re-Newed RX: Transmitted to Pharmacy Patient Instructions/Follow Up Plan of Care/Instructions/FU: Please continue to take your medications as written. Please follow up with your primary care doctor to follow up this hospital stay. Activity as Tolerated: Yes Discharge Diet: No Restrictions Return to The Hospital For: Chest pain, shortness of breath, fever, weakness, if you feel you are getting worse. KADY KELLY MD Jan 04, 2023 09:27
[2023-01-04] MEDS ORDERED: LACT1CAP62 PO (09:34)
[2023-01-04] MEDS ORDERED: FURO20TA4 PO ×2 (09:34)
[2023-01-04] MEDS ORDERED: CALC625T14 PO (09:34)
[2023-01-04] MEDS ORDERED: ASPI-1238 PO (09:34)
[2023-01-04] MEDS ORDERED: LOSA100T58 PO (09:34)
[2023-01-04] MEDS ORDERED: FENO134C21 PO (09:34)
[2023-01-04] MEDS ORDERED: PANT40TA52 PO (09:34)
[2023-01-04] MEDS ORDERED: HYDR-3924 PO (09:34)
[2023-01-04] MEDS ORDERED: NYST15CR35 TP (09:34)
[2023-01-04] MEDS ORDERED: DOCU100C37 PO (09:34)
[2023-01-04] MEDS ORDERED: POTA10CA84 PO (09:34)
[2023-01-04] MEDS ORDERED: MAGN400T39 PO (09:34)
[2023-01-04] MEDS ORDERED: CLOP75TA28 PO (09:34)
[2023-01-04] MEDS ORDERED: MULT-1136 PO (09:34)
[2023-01-04] MEDS ORDERED: ACET-93 PO (09:34)
[2023-01-04 11:21] VITALS: BP 151/63
--- NOTE | 2023-01-04 11:53 | Therapy Team Discharge Summary ---
Therapy Discharge Summary Discharge Recommendations Date of Discharge Jan 04, 2023 at 11:23 Physical Therapy Roll Left to Right (QC): 3 Sit to Lying (QC): 2 Lying to Sitting/Side of Bed(Q: 3 Sit to Stand (QC): 4 Chair/Qbr-xn-Oykyn Xfer(QC): 4 Toilet Transfer (QC): 3 Car Transfer (QC): 3 Does the Patient Walk: Yes Mode of Locomotion: Walk Anticipated Mode of Locomotion: Walk Walk 10 feet (QC): 4 Walk 50 ft with 2 Turns(QC): 4 Walk 150 ft (QC): 4 Walking 10ft on uneven surface: 4 Distance: 50' Gait Assistive Device: FWW Does the Pt Use a Wheelchair: No Wheel 50 ft with 2 turns (QC): 9 Wheel 150 ft (QC): 9 Type of Wheelchair: N/A 1 Step (curb) (QC): 88 4 Steps (QC): 9 12 Steps (QC): 9 Balance Sitting Static: Fair Balance Sitting Dynamic: Fair Balance-Standing Static: Poor Picking up an Object (QC): 88 Occupational Therapy Patient partially met goals. Depending on cognitive level and patient participation, patient was on days PLOF, Primary and secondary laboratory animal care veterinarian training performed for ADL, balance, strength transfer and mobility, 3 caregivers demonstrate understanding. Patient to DC to [place] Decreased Activ Tolerance, Decreased Safety Aware, Decreased UE Strength, Impaired Bed Mobility, Impaired Cognition, Impaired Coordination, Impaired Funct Balance, Impaired Self-Care Skills, Restricted Funct UE ROM Eating (QC): 4 Oral Hygiene (QC): 4 Shower/Bathe Self (QC): 3 (PATIENT REMAINS SITTING DUARTAION OF SHOWER, ABLE TO WASH FRONT OF BODY SHULDERS TO KNEES) Upper Body Dressing (QC): 3 Lower Body Dressing (QC): 2 On/Off Footwear (QC): 3 (PERFORMS LLE ONLY) Toileting Hygiene (QC): 3 PT Automatic Casting Machine Operator Goals Snf Goals PT Snf Goals Time Frame: Jan 28, 2023 Roll Left to Right (QC): 4 Sit to Lying (QC): 4 Lying-Sitting on Side/Bed(QC): 4 Sit to Stand (QC): 4 Chair/Xbs-bu-Ykxkc Xfer(QC): 4 Toilet/Commode Transfer (QC): 4 Car Transfer (QC): 4 Does the Patient Walk: Yes Walk 10 feet (QC): 4 Walk 10ft-Uneven Surface(QC): 4 Walk 50ft with 2 Turns (QC): 4 Walk 150 ft (QC): 4 Wheel 50 feet with 2 turns (QC: 9 Type: N/A Wheel 150 feet: 9 Type: N/A 1 Step (curb) (QC): 4 4 Steps (QC): 9 12 Steps (QC): 9 Picking up an Object (QC): 9 OT Automatic Casting Machine Operator Goals Snf Goals Time Frame: Jan 13, 2023 (nitially set for 12/16, extended 12/16/22, extended 12-30-22 to 01/13/23) Acute change in mental status: 1 Inattention: 2 Disorganized thinkin Altered level of consciousness: 2 (PER DAUGHTER REPORT) Eating (QC): 5 Oral Hygiene (QC): 4 (met 12/30/22) Toileting Hygiene (QC): 3 Shower/Bathe Self (QC): 3 Upper Body Dressing (QC): 4 (met 12-30-22) Lower Body Dressing (QC): 3 On/Off Footwear (QC): 3 1=Demonstrate adherence to instructed precautions during ADL tasks. 2=Patient will verbalize/demonstrate understanding of assistive de vices/modifications for ADL. 3=Patient will improve strength/tolerance for activity to enable patient to perform ADL's. MIK MAHMOOD OT Jan 04, 2023 11:53
== END 2023-01-04 11:23 | DRG 689 ==
LOC: 4TH 10:30
PROVIDERS: ADMIT Family Medicine; ATTEND Family Medicine
DX: N10 Acute pyelonephritis (principal); G93.41 Metabolic encephalopathy; U07.1 COVID-19; F05 Delirium due to known physiological condition; J96.11 Chronic respiratory failure with hypoxia; N17.9 Acute kidney failure, unspecified; B95.2 Enterococcus as the cause of diseases classified elsewhere; K59.00 Constipation, unspecified; Z66 Do not resuscitate; E78.5 Hyperlipidemia, unspecified; K21.9 Gastro-esophageal reflux disease without esophagitis; I25.10 Atherosclerotic heart disease of native coronary artery without angina pectoris; I10 Essential (primary) hypertension; F03.90 Unspecified dementia, unspecified severity, without behavioral disturbance, psychotic disturbance, mood disturbance, and anxiety; G47.30 Sleep apnea, unspecified; E78.00 Pure hypercholesterolemia, unspecified; Z95.5 Presence of coronary angioplasty implant and graft; Z88.5 Allergy status to narcotic agent; Z91.09 Other allergy status, other than to drugs and biological substances
CPT/HCPCS: 36415; 36600; 70450; 71045; 80048; 80053; 81000; 82805; 82947; 83605; 83735; 84132; 85025; 85027; 87040; 87077; 87088; 87186; 94664; 94760

== ENCOUNTER 2023-01-12 07:49 | Emergency (ER) | payer MEDICARE, OTHER ==
[~2023-01-12] VITALS: Ht 152 cm; Wt 62.0 kg
[~2023-01-12 07:49] MED LIST changes: +ACET-93 PO; +AMLO-250 PO; -ANTACID SUSPENSION 30 ML UDC PO PRN; -CALCIUM CARBONATE 500 MG CHEW TABLET PO PRN; +NYST15CR35 TP; -ONDANSETRON INJECTION 4 MG/2 ML (SDV) IV PRN; -SENNA W/DOCUSATE TABLET PO PRN
--- NOTE | 2023-01-12 08:46 | ED General ---
General Chief Complaint: General Problems/Pain Stated Complaint: DISTENDED ABD | LEG WEAKNESS Nursing Triage Note: ARRIVED VIA WC TO ROOM 05 WITH SEVERAL COMPLAINTS. DC FROM THE HOSPITAL A WEEK AGO AND IS AT [facility] FOR REHAB. UNABLE TO BEAR WT ON RIGHT FOOT STARTING YESTERDAY, ABD DISTENTION, AND GENERALIZED WEAKNESS. 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 She is currently starting treatment for urinary tract infection that was noted to be Pseudomonas and susceptible to ciprofloxacin. She just started that. Noticed the increased lower abdominal pain. States that she is peeing a small amount frequently but no large amounts and the abdominal pain and distention is worsened. Not currently febrile. She did have prolonged hospitalization for recurrent urinary tract infections and weakness and just went to [place] for rehab care. She had been able to walk much better than she is currently. No reported injury but has the increased right ankle pain now. Timing/Duration: 4-5 Days, Getting Worse Severity: Moderate Associated Systoms: No Chest Pain, No Cough; Fever/Chills; No Nausea/Vomiting, No Shortness of Air; Weakness Allergies and Home Medications Allergies Coded Allergies: morphine (Verified Allergy, Intermediate, Vomiting, 11/22/22) also hallucinations rivaroxaban (Verified Allergy, Intermediate, 11/22/22) increased bleeding tadalafil (Verified Allergy, Mild, 11/22/22) medication does not work clonidine (Verified Allergy, Unknown, 11/22/22) Patient Home Medication List Home Medication List Reviewed: Yes Acetaminophen (Acetaminophen) 500 Mg Tablet, 500 MG PO TID Prescribed by: KADY KELLY on 01/04/23 0934 Amlodipine Besylate (Amlodipine Besylate) 5 Mg Tablet, 10 MG PO DAILY Prescribed by: KADY KELLY on 01/04/23 0831 Aspirin (Aspirin EC) 81 Mg Tablet.dr, 81 MG PO HS Prescribed by: KADY KELLY on 01/04/23 0934 Calcium Polycarbophil (Fiber) 625 Mg Tablet, 625 MG PO DAILY Prescribed by: KADY KELLY on 01/04/23 0934 Clopidogrel Bisulfate (Clopidogrel) 75 Mg Tablet, 75 MG PO DAILY Prescribed by: KADY KELLY on 01/04/23933 Docusate Sodium (Docusate Sodium) 100 Mg Capsule, 100 MG PO BID Prescribed by: KADY KELLY on 01/04/23933 Fenofibrate,Micronized (Fenofibrate) 134 Mg Capsule, 134 MG PO HS Prescribed by: KADY KELLY on 01/04/23933 Furosemide (Furosemide) 20 Mg Tablet, 20 MG PO MEHTA,,TH,SA PRN for edema Prescribed by: KADY KELLY on 01/04/23933 Furosemide (Furosemide) 20 Mg Tablet, 40 MG PO MO,,FR PRN for edema Prescribed by: KADY KELLY on 01/04/23933 Hydralazine HCl (Hydralazine HCl) 50 Mg Tablet, 50 MG PO TID Prescribed by: KADY KELLY on 01/04/23933 Lactobacillus Acidophilus (Probiotic) 10 Billion Cell Capsule, 1 EACH PO HS Prescribed by: KADY KELLY on 01/04/23933 Losartan Potassium (Losartan Potassium) 100 Mg Tablet, 100 MG PO HS Prescribed by: KADY KELLY on 01/04/23933 Magnesium Oxide (Magnesium) 400 Mg Magnesium Tablet, 400 MG PO HS Prescribed by: KADY KELLY on 01/04/23933 Multivitamin (Multivitamin) 1 Each Tablet, 1 EACH PO HS Prescribed by: KADY KELLY on 01/04/23933 Nystatin (Nystatin) 100,000 Unit/Gram Cream..g., 0 GM TP TID Prescribed by: KADY KELLY on 01/04/23933 Pantoprazole Sodium (Pantoprazole Sodium) 40 Mg Tablet.dr, 40 MG PO DAILY Prescribed by: KADY KELLY on 01/04/23933 Potassium Chloride (Potassium Chloride) 10 Meq Capsule.er, 10 MEQ PO DAILY Prescribed by: KADY KELLY on 01/04/23933 Review of Systems Review of Systems Constitutional: see HPI, chills; No fever; weakness EENTM: No nose congestion, No throat pain Respiratory: No cough, No short of breath Cardiovascular: No chest pain; edema; No palpitations Gastrointestinal: abdominal pain; No nausea, No vomiting; other (Distended lower abdomen) Genitourinary: see HPI Musculoskeletal: joint pain, joint swelling (Ankle) Skin: No change in color, No lesions Psychiatric/Neurological: No Symptoms Reported Past Rwetdmi-Izyghj-Yzvhms Hx Patient Social History Tobacco Use?: No Substance use?: No 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s Up To Date Tetanus Booster (TDap): Unknown Seasonal Allergies Seasonal Allergies: Yes Past Medical History Surgery/Hospitalization HX: ABD SURG, R TOTAL HIP, R TOTAL KNEE, COPD, HTN, METABOLIC DELIRIUM. 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 Sexually Transmitted Disease: No HIV/AIDS: No Genitourinary: Yes UTI-Chronic Gastrointestinal: Yes Gastroesophageal Reflux, Gall Bladder Disease Musculoskeletal: Yes (SPIINAL STENOSIS) Arthritis Endocrine: No Cataract Loss of Vision: Denies Hearing Impairment: Denies Cancer: No Psychosocial: No Integumentary: No Recent Skin Changes Blood Disorders: No Family Medical History Reviewed Nursing Family Hx Cardiovascular disease 19 MOTHER Hypertension 19 FATHER Physical Exam-Suspected Sepsis Physical Exam Vital Signs Vital Signs - First Documented 01/12/23 07:50 Temp 36.0 Pulse 93 Resp 16 B/P (MAP) 157/91 (113) Pulse Ox 95 O2 Delivery Room Air Capillary Refill : Less Than 3 Seconds Blood Pressure Mean: 113 Height, Weight, BMI Height: 5'0" Weight: 171lbs. 8.0oz. 77.183701kl; 26.00 BMI Method:Stated General Appearance: No Apparent Distress, WD/WN HEENT: PERRL/EOMI, Pharynx Normal Neck: Non Tender, Supple Respiratory: No Accessory Muscle Use, Crackles (Left base) Cardiovascular: Regular Rate, Rhythm, No Murmur Gastrointestinal: Soft, Distended, Tenderness (Suprapubic tenderness noted and what appears to be palpable bladder) Back: Normal Inspection, No CVA Tenderness, No Vertebral Tenderness Extremity: Normal Range of Motion, Non Tender, Other (Tenderness to the right ankle with edema noted bilateral) Neurologic/Psychiatric: Alert, Oriented x3 Skin: normal color, warm/dry Focused Exam Lactate Level 01/12/23 09:22: Lactic Acid Level 1.02 Lactic Acid Level Procedures/Interventions Suture Size: 3-0 Progress/Results/Core Measures Suspected Sepsis SIRS Temperature: Pulse: 93 Respiratory Rate: 16 Laboratory Tests 01/12/23 09:04: White Blood Count 8.9 Blood Pressure 157 /91 Mean: 113 01/12/23 09:22: Lactic Acid Level 1.02 Laboratory Tests 01/12/23 09:04: Creatinine 0.86, Platelet Count 413H, Total Bilirubin 0.5 01/12/23 09:52: INR Comment 1.0 Results/Orders Lab Results Laboratory Tests Test 01/12/23 08:41 01/12/23 09:04 01/12/23 09:22 01/12/23 09:52 Range/Units Urine Color ORANGE H Urine Clarity SLIGHTLY CLOUDY Urine pH 5.5 5-9 Urine Specific [place] 1.015 L 1.016-1.022 Urine Protein 1+ H NEGATIVE Urine Glucose (UA) TRACE H NEGATIVE Urine Ketones NEGATIVE NEGATIVE Urine Nitrite POSITIVE H NEGATIVE Urine Bilirubin NEGATIVE NEGATIVE Urine Urobilinogen 0.2 < = 1.0 MG/DL Urine Leukocyte Esterase 1+ H NEGATIVE Urine RBC (Auto) NEGATIVE NEGATIVE Urine RBC NONE /HPF Urine WBC 50-100 H /HPF Urine Squamous Epithelial Cells NONE /HPF Urine Crystals NONE /LPF Urine Bacteria MODERATE H /HPF Urine Casts NONE /LPF Urine Mucus NEGATIVE /LPF Urine Culture Indicated CULTURE PENDING White Blood Count 8.9 4.3-11.0 10^3/uL Red Blood Count 3.79 L 3.80-5.11 10^6/uL Hemoglobin 11.2 L 11.5-16.0 g/dL Hematocrit 35 35-52 % Mean Corpuscular Volume 92 80-99 fL Mean Corpuscular Hemoglobin 30 25-34 pg Mean Corpuscular Hemoglobin Concent 32 32-36 g/dL Red Cell Distribution Width 15.4 H 10.0-14.5 % Platelet Count 413 H 130-400 10^3/uL Mean Platelet Volume 9.6 9.0-12.2 fL Immature Granulocyte % (Auto) 0 % Neutrophils (%) (Auto) 83 H 42-75 % Lymphocytes (%) (Auto) 9 L 12-44 % Monocytes (%) (Auto) 7 0-12 % Eosinophils (%) (Auto) 0 0-10 % Basophils (%) (Auto) 0 0-10 % Neutrophils # (Auto) 7.4 1.8-7.8 10^3/uL Lymphocytes # (Auto) 0.8 L 1.0-4.0 10^3/uL Monocytes # (Auto) 0.6 0.0-1.0 10^3/uL Eosinophils # (Auto) 0.0 0.0-0.3 10^3/uL Basophils # (Auto) 0.0 0.0-0.1 10^3/uL Immature Granulocyte # (Auto) 0.0 0.0-0.1 10^3/uL Sodium Level 133 L 135-145 MMOL/L Potassium Level 3.9 3.6-5.0 MMOL/L Chloride Level 98 98-107 MMOL/L Carbon Dioxide Level 23 21-32 MMOL/L Anion Gap 12 5-14 MMOL/L Blood Urea Nitrogen 20 H 7-18 MG/DL Creatinine 0.86 0.60-1.30 MG/DL Estimat Glomerular Filtration Rate 65 BUN/Creatinine Ratio 23 Glucose Level 118 H 70-105 MG/DL Calcium Level 9.8 8.5-10.1 MG/DL Corrected Calcium 10.0 8.5-10.1 MG/DL Total Bilirubin 0.5 0.1-1.0 MG/DL Aspartate Amino Transf (AST/SGOT) 24 5-34 U/L Alanine Aminotransferase (ALT/SGPT) 12 0-55 U/L Alkaline Phosphatase 40 40-136 U/L Troponin I 0.095 H <0.028 NG/ML C-Reactive Protein High Sensitivity 1.51 H 0.00-0.50 MG/DL B-Type Natriuretic Peptide 385.1 H <100.0 PG/ML Total Protein 7.8 6.4-8.2 GM/DL Albumin 3.7 3.2-4.5 GM/DL Lactic Acid Level 1.02 0.50-2.00 MMOL/L Prothrombin Time 13.6 12.2-14.7 SEC INR Comment 1.0 0.8-1.4 Activated Partial Thromboplast Time 28 24-35 SEC Test 01/12/23 12:27 Range/Units Troponin I 0.099 H <0.028 NG/ML My Orders Orders - EMILY MCCLELLAND MD Cbc And Automated Diff (01/12/23 08:26) Comprehensive Metabolic Panel (01/12/23 08:26) Blood Culture (01/12/23 08:) Sputum Culture (01/12/23 08:) Urinalysis (01/12/23:) Urine Culture (01/12/23 08:) Protime With Inr (01/12/23 08:) Partial Thromboplastin Time (01/12/23 08:) Chest 1 View, Ap/Pa Only (01/12/23 08:) Ed Iv/Invasive Line Start (01/12/23 08:26) Troponin I [place] (01/12/23 08:) Vital Signs Adult Sepsis Patie Q15M (01/12/23:) O2 (01/12/23:) Remove Rings In Anticipation O (01/12/23:) Lactic Acid Analyzer (01/12/23 08:) Catheter(Urinary) Insert & Ass 03,15 (01/12/23 08:26) Bnp Gabbie (01/12/23 08:) Hs C Reactive Protein (01/12/23 08:26) Ekg Tracing (01/12/23 08:32) Ankle, Right, 3 Views (01/12/23 08:46) Cefepime Injection (Cefepime Injection) (01/12/23 11:15) Acetaminophen Tablet (Acetaminophen Ta (01/12/23 11:10) Ketorolac Injection (Ketorolac Injection (01/12/23 11:10) Abdomen/Kub 1view (01/12/23 11:37) Troponin I [place] (01/12/23 12:00) Ns Iv 500 Ml (Ns Iv 500 Ml) (01/12/23 13:30) Medications Given in ED Current Medications Medications Dose Ordered Sig/Ramón Route Start Time Stop Time Status Last Admin Dose Admin Cefepime HCl 1000 mg/Sodium Chloride 50 ml @ 100 mls/hr ONCE ONCE IV 01/12/23 11:15 01/12/23 11:44 DC 01/12/23 11:21 100 MLS/HR Sodium Chloride 500 ml @ 0 mls/hr Q0M ONCE IV 01/12/23 13:30 01/12/23 13:31 DC 01/12/23 13:41 500 MLS/HR Vital Signs/I&O 01/12/23 07:50 Temp 36.0 Pulse 93 Resp 16 B/P (MAP) 157/91 (113) Pulse Ox 95 O2 Delivery Room Air Capillary Refill : Less Than 3 Seconds Blood Pressure Mean: 113 Progress Note : Progress Note Seen and evaluated. This is a very complicated patient given her prolonged history with UTI as well's complicating factors of heart failure and now with the ankle pain as well. We will initiate sepsis work-up including CBC, CMP, coags, blood cultures, lactic acid, UA and urine culture and will get chest x- ray, EKG, troponin and BNP as well. X-ray of the right ankle ordered. We will do bladder scan and if she is markedly distended, will initiate Fatima catheter for drainage for retention. Monitor patient. Differential diagnosis includes sepsis, UTI, heart failure, ankle fracture versus arthritic pain, urinary retention, cardiac event 0830: Patient found to have markedly distended bladder greater than 1000 mL and Fatima catheter to be initiated. 0905: Chest x-ray shows no obvious acute infilt rate on my interpretation pending radiology report. Fracture on my interpretation. X-ray of the right ankle shows no obvious acute fracture on my interpretation. Pending radiology report. 1014: CBC reviewed and shows normal white count with slightly low hemoglobin and no bands. CMP reviewed and shows slightly decreased sodium at 133 but otherwise normal electrolytes and normal creatinine. LFTs normal. CRP slightly elevated at 1.5 with mild elevation of BNP at 385 and troponin is slightly bumped at 0.095. Patient does have history of pulmonary hypertension. UA is nitrate positive as expected with 50-100 whites and moderate bacteria. Patient has known Pseudomonas infection that is reported to be sensitive to Cipro. Monitor patient. 1028: Coags are negative. 1035: I did discuss labs with Dr Maurer, primary cardiology and on-call as well as EKG. He is recommending admission and he can consult. Patient does have a UTI with urinary retention. We did get greater than 1000 mL out of the bladder and she is more comfortable now. Previous microbiology here does show Pseudomonas that was resistant to cefepime as well as ciprofloxacin. We will go ahead and initiate cefepime 1 g IV now. She has not had any medicine this morning. All of this was discussed with patient and family who agree. I have paged Dr. Clemens, Hospitalist. 1050: I have spoken with Dr. Clemens. He is not entirely in agreement with admission at this point and I understand his point. We could recheck troponin and see if there is rise as well as give cefepime as discussed above and continue her ciprofloxacin. I did discuss all of this with the patient and her daughter and they are in agreement that she would like to go back. There is question about pain of the ankle. We will give Toradol 15 mg IV and Tylenol 1 g p.o. We will repeat troponin at noon. Monitor patient. 1140: I have ordered KUB as the daughter was worried about constipation and we will check. Monitor patient. 1330: Overall doing better. Repeat troponin is not significantly changed. I did discuss this with Dr Maurer. I did discuss all of this with the family as well. We will give normal saline 500 mL bolus as she seems a bit concentrated in her urine I think this will help with forward flow. X-ray of the abdomen does show constipation. We will initiate outpatient MiraLAX daily as a stool regimen. Her pain is better for her ankle and we will initiate acetaminophen 1 g p.o. every 8 hours scheduled and they can discuss that with her doctor more later. I will send a copy of the note to Dr. Massey. We will keep the Fatima catheter in place until the office visit on the . He can adjust meds at that time as needed. All of this was discussed with patient and family who agree. Pending fluid completion and then will discharge home. In discussion with Dr Maurer, troponin test likely elevated secondary to blood pressure variation and/or urinary retention and increased pain. Do not believe at this time that its significant cardiac in nature and this was discussed with patient and family who agree. 1429: We will go ahead and initiate Uday wrap to the right ankle for support. Family to take her back to facility. ECG Initial ECG Impression Date: Jan 12, 2023 Initial ECG Impression Time: 08:51 Initial ECG Rate: 72 Initial ECG Rhythm: Normal Sinus Initial ECG Impression: Normal Comment Sinus rhythm with normal axis. No evidence of ST elevation NC. Interpreted by me. Diagnostic Imaging Diagonstic Imaging: Xray Plain Films/CT/US/NM/MRI: chest Comments [facility] [place], [place] NAME: LUIS LI REC#: [id number] PT STATUS: REG ER : 1935 PHYSICIAN: EMILY MCCLELLAND MD ADMIT DATE: 01/12/23/ER Draft Date of Exam:01/12/23 CHEST 1 VIEW, AP/PA ONLY EXAMINATION: Chest 1 view HISTORY: weakness COMPARISON: 12/02/2022. FINDINGS: The lungs are clear without edema or pneumonia. No pleural effusion or pneumothorax. Heart size is normal. Widening of the right paratracheal stripe corresponded to tortuous vasculature on prior CT. There are mitral annular calcifications. IMPRESSION: 1. Clear lungs. Dictated on workstation # [id number] Dict: 01/12/23852 Trans: 01/12/23857 [id number] Interpreted by: VIVIENNE CORONA MD Electronically signed by: Reviewed: Reviewed by [place] Diagonstic Imaging: Xray Plain Films/CT/US/NM/MRI: ankle Comments [facility] [place] NAME: LUIS LI [facility] REC#: [id number] PT STATUS: REG ER : 1935 PHYSICIAN: EMILY MCCLELLAND MD ADMIT DATE: 01/12/23/ER Draft Date of Exam:01/12/23 ANKLE, RIGHT, 3 VIEWS EXAMINATION: Right ankle 3 views HISTORY: ankle pain COMPARISON: None available. FINDINGS: There are extensive vascular calcifications. There is a heel spur and enthesophytes at the insertion of the Achilles tendon. Mortise is intact. Bones are osteopenic. No fracture. No dislocation. IMPRESSION: 1. No fracture in the right ankle. Dictated on workstation # [id number] Dict: 01/12/2352 Trans: 01/12/23853 [id number] Interpreted by: VIVIENNE CORONA MD Electronically signed by: Reviewed: Reviewed by [place] Diagonstic Imaging: Xray Plain Films/CT/US/NM/MRI: abdomen Comments [facility] [place] NAME: LUIS LI [facility] REC#: [id number] PT STATUS: REG ER : 1935 PHYSICIAN: EMILY MCCLELLAND MD ADMIT DATE: 01/12/23/ER Draft Date of Exam:01/12/23 ABDOMEN/KUB 1VIEW INDICATION: Abdominal pain FINDINGS: The bowel gas pattern is nonspecific. There are degenerative changes in the spine. There are no abdominal calcifications. There is a moderate amount retained fecal material, likely reflecting some degree of constipation. IMPRESSION: Moderate amount of retained fecal material, likely reflecting some degree of constipation otherwise nonspecific bowel gas pattern. Dictated on workstation # [id number] Dict: 01/12/23 1203 Trans: 01/12/[address] [facility] [id number] Interpreted by: CHANEL GONZALEZ MD Electronically signed by: Reviewed: Reviewed by Me Departure Communication (Admissions) Time/Spoke to Consulting Phy: 10:35 Impression Primary Impression: Urinary retention Additional Impressions: Urinary tract infection Qualified Codes: N30.00 - Acute cystitis without hematuria Elevated troponin Disposition: HOME, SELF-CARE Condition: Stable Admissions Decision to Admit Reason: Admit from ER (General) Decision to Admit/Date: Jan 12, 2023 Time/Decision to Admit Time: 10:45 Departure-Patient Inst. Decision time for Depature: 14:29 Referrals: EUGENIA MASSEY DO (PCP/Family) Primary Care Physician Patient Instructions: Troponin Test, Urinary Retention, Urinary Tract Infection, Adult ED Add. Discharge Instructions: All discharge instructions reviewed with patient and/or family. Voiced u nderstanding. You may initiate MiraLAX 1 capful daily to achieve normal bowel movement. Fatima catheter care per facility protocol. Increase Tylenol to 1 g every 8 hours for pain. This will be scheduled. Follow-up with Dr. Massey on the as sched uled. Drink plenty of fluids and continue regular diet. Take other medications as directed. Return for worse pain, fever, vomiting, weakness, breathing problems or other concerns as needed. Copy Copies To 1: EUGENIA MASSEY TIMOTHY D MD Jan 12, 2023 08:46
--- NOTE | 2023-01-12 08:55 | Diagnostic Imaging Report ---
EXAMINATION: Right ankle 3 views HISTORY: ankle pain COMPARISON: None available. FINDINGS: There are extensive vascular calcifications. There is a heel spur and enthesophytes at the insertion of the Achilles tendon. Mortise is intact. Bones are osteopenic. No fracture. No dislocation. IMPRESSION: 1. No fracture in the right ankle. Dictated by: Dictated on workstation # [id number]
--- NOTE | 2023-01-12 08:58 | Diagnostic Imaging Report ---
EXAMINATION: Chest 1 view HISTORY: weakness COMPARISON: 12/02/2022. FINDINGS: The lungs are clear without edema or pneumonia. No pleural effusion or pneumothorax. Heart size is normal. Widening of the right paratracheal stripe corresponded to tortuous vasculature on prior CT. There are mitral annular calcifications. IMPRESSION: 1. Clear lungs. Dictated by: Dictated on workstation # [id number]
[2023-01-12 09:07] LABS: BACTERIA,URINE MODERATE /HPF; BILIRUBIN,URINE NEGATIVE (NEGATIVE); CLARITY,URINE SLIGHTLY CLOUDY; COLOR,URINE ORANGE; GLUCOSE, URINE (UA) TRACE (NEGATIVE); KETONES,URINE NEGATIVE (NEGATIVE); LEUKOCYTE ESTERASE ,URINE 1+ (NEGATIVE); NITRITE,URINE POSITIVE (NEGATIVE); PH,URINE 5.5 (5-9); PROTEIN,URINE 1+ (NEGATIVE); WBC,URINE 50-100 /HPF
[2023-01-12 09:13] LABS: BASOPHILS % (AUTO) 0 % (0-10); EOSINOPHILS % (AUTO) 0 % (0-10); HEMATOCRIT 35 % (35-52); HEMOGLOBIN 11.2 g/dL (11.5-16.0); LYMPHOCYTES # (AUTO) 0.8 10^3/uL (1.0-4.0); LYMPHOCYTES % (AUTO) 9 % (12-44); MEAN CORPUSCULAR HEMOGLOBIN 30 pg (25-34); MEAN CORPUSCULAR HGB CONC 32 g/dL (32-36); MEAN CORPUSCULAR VOLUME 92 fL (80-99); MEAN PLATELET VOLUME 9.6 fL (9.0-12.2); MONOCYTES # (AUTO) 0.6 10^3/uL (0.0-1.0); MONOCYTES % (AUTO) 7 % (0-12); NEUTROPHILS # (AUTO) 7.4 10^3/uL (1.8-7.8); NEUTROPHILS % (AUTO) 83 % (42-75); PLATELET COUNT 413 10^3/uL (130-400); WHITE BLOOD COUNT 8.9 10^3/uL (4.3-11.0)
[2023-01-12 09:28] LABS: ALBUMIN 3.7 GM/DL (3.2-4.5); POTASSIUM 3.9 MMOL/L (3.6-5.0)
[2023-01-12 09:29] LABS: CALCIUM 9.8 MG/DL (8.5-10.1)
[2023-01-12 09:30] LABS: TOTAL PROTEIN 7.8 GM/DL (6.4-8.2)
[2023-01-12 09:32] LABS: BILIRUBIN,TOTAL 0.5 MG/DL (0.1-1.0)
[2023-01-12 09:34] LABS: CREATININE SERUM 0.86 MG/DL (0.60-1.30)
[2023-01-12 10:19] LABS: PROTHROMBIN TIME PATIENT 13.6 SEC (12.2-14.7)
[2023-01-12] MEDS: CEFEPIME INJECTION 1,000 MG in NS (IVPB) 50 ML 50 ML IV ONE (11:21)
[2023-01-12] MEDS: ACETAMINOPHEN 500 MG TABLET PO STA (11:21)
[2023-01-12] MEDS: KETOROLAC INJ 30 MG/ML VIAL IVP STA (11:21)
--- NOTE | 2023-01-12 12:14 | Diagnostic Imaging Report ---
INDICATION: Abdominal pain FINDINGS: The bowel gas pattern is nonspecific. There are degenerative changes in the spine. There are no abdominal calcifications. There is a moderate amount retained fecal material, likely reflecting some degree of constipation. IMPRESSION: Moderate amount of retained fecal material, likely reflecting some degree of constipation otherwise nonspecific bowel gas pattern. Dictated by: Dictated on workstation # [id number]
--- NOTE | 2023-01-12 13:27 | Consultation-Cardiology ---
HPI-Cardiology Cardiology Consultation: Date of Consultation 01/12/23 Time Seen by a Provider: 12:50 Date of Admission Attending Physician Keaton Massey DO Admitting Physician Consulting Physician NOEMI GORDON MD, MA, FACP, FACC, [facility], CCDS Physician requesting consult: Dr Subramanian HPI: Chief Complaint: Reason for Card consult: Minimally elevated troponin 88 yo woman with multiple comorbidities who had recently went to her NH after a long hospitalization for UTI, pyelonephritis, EDITH, and chronic resp failure. She had been developing increasing lower abdominal discomfort at the [place]. In the ER she was found to have urinary retention. Had presented with asystolic bp in the 90s. Urinary obstruction has been relieved by the ER physician. She is not reporting any symptoms other than chronic gen weakness. No cp or palp or syncope or shortness of breath or abd pain at the time of my exam. Two daughters by bedside who note marked clinical improvement of relief or urinary obstruction. The patient and his daughters request that she be discharged back to the [place]. Review of Systems-Cardiology Review of Systems Constitutional: malaise, tiredness, weight loss Eyes: No vision change Ears/Nose/Throat: No ear discharge, No nasal drainage, No recent hearing loss Respiratory: As described under HPI Cardiovascular: As described under HPI Gastrointestinal: No diarrhea; nausea (intermittent), poor appetite (intermittent) Genitourinary: As described under HPI, other (she has had recurrent urinary tract infections and is currently on antibiotics for it (per family report)) Musculoskeletal: back pain (chronic) Skin: No rash on exposed areas, No ulcerations on exposed areas Psychiatric/Neurological: No seizure, No focal weakness, No syncope Hematologic: No bleeding abnormalities [id number] Hx Patient Social History Smoking Status: Never a Smoker 2nd Hand Smoke Exposure: No 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s Up To Date Tetanus Booster (TDap): Unknown Date of Influenza Vaccine: Jan 30, 2012 Past Medical History PMH As described under Assessment. Family Medical History Family Medical History: She does not report fam h/o early CAD or SCD Family History: Cardiovascular disease 19 MOTHER Hypertension 19 FATHER Allergies and Home Medications Allergies Coded Allergies: morphine (Verified Allergy, Intermediate, Vomiting, 11/22/22) also hallucinations rivaroxaban (Verified Allergy, Intermediate, 11/22/22) increased bleeding tadalafil (Verified Allergy, Mild, 11/22/22) medication does not work clonidine (Verified Allergy, Unknown, 11/22/22) Patient Home Medication List Home Medication List Reviewed: Yes Acetaminophen (Acetaminophen) 500 Mg Tablet, 500 MG PO TID Prescribed by: KADY KELLY on 01/04/23933 Amlodipine Besylate (Amlodipine Besylate) 5 Mg Tablet, 10 MG PO DAILY Prescribed by: KADY KELLY on 01/04/23830 Aspirin (Aspirin EC) 81 Mg Tablet.dr, 81 MG PO HS Prescribed by: KADY KELLY on 01/04/23933 Calcium Polycarbophil (Fiber) 625 Mg Tablet, 625 MG PO DAILY Prescribed by: KADY KELLY on 01/04/23933 Clopidogrel Bisulfate (Clopidogrel) 75 Mg Tablet, 75 MG PO DAILY Prescribed by: KADY KELLY on 01/04/23933 Docusate Sodium (Docusate Sodium) 100 Mg Capsule, 100 MG PO BID Prescribed by: KADY KELLY on 01/04/23933 Fenofibrate,Micronized (Fenofibrate) 134 Mg Capsule, 134 MG PO HS Prescribed by: KADY KELLY on 01/04/23933 Furosemide (Furosemide) 20 Mg Tablet, 20 MG PO MEHTA,,TH,SA PRN for edema Prescribed by: KADY KELLY on 01/04/23933 Furosemide (Furosemide) 20 Mg Tablet, 40 MG PO MO,,FR PRN for edema Prescribed by: KADY KELLY on 01/04/23933 Hydralazine HCl (Hydralazine HCl) 50 Mg Tablet, 50 MG PO TID Prescribed by: KADY KELLY on 01/04/23933 Lactobacillus Acidophilus (Probiotic) 10 Billion Cell Capsule, 1 EACH PO HS Prescribed by: KADY KELLY on 01/04/23933 Losartan Potassium (Losartan Potassium) 100 Mg Tablet, 100 MG PO HS Prescribed by: KADY KELLY on 01/04/23933 Magnesium Oxide (Magnesium) 400 Mg Magnesium Tablet, 400 MG PO HS Prescribed by: KADY KELLY on 01/04/23933 Multivitamin (Multivitamin) 1 Each Tablet, 1 EACH PO HS Prescribed by: KADY KELLY on 01/04/23933 Nystatin (Nystatin) 100,000 Unit/Gram Cream..g., 0 GM TP TID Prescribed by: KADY KELLY on 01/04/23933 Pantoprazole Sodium (Pantoprazole Sodium) 40 Mg Tablet.dr, 40 MG PO DAILY Prescribed by: KADY KELLY on 01/04/23933 Potassium Chloride (Potassium Chloride) 10 Meq Capsule.er, 10 MEQ PO DAILY Prescribed by: KADY KELLY on 01/04/23933 Physical Exam-Cardiology Physical Exam Vital Signs/I&O 01/12/23 07:50 Temp 36.0 Pulse 93 Resp 16 B/P (MAP) 157/91 (113) Pulse Ox 95 O2 Delivery Room Air Capillary Refill : Less Than 3 Seconds Constitutional: AAO x 3 (but appear mildly confused at times), other (thin appearing) HEENT: PERRL, EOMI Neck: carotid pulses are 2 + bilaterally, with good upstrokes Respiratory: No accessory muscle use; chest expansion is symmetric, chest is bilaterally symmetric, other (fair to good, bilateral air entry) Cardiovascular: regular rate-rhythm, S1 and S2, systolic murmur (soft IMMANUEL at card base) Gastrointestinal: No tender; soft; No guarding, No rebound; audible bowel sounds Extremities: No clubbing, No cyanosis, No significant edema Neurologic/Psychiatric: other (moves all limbs equally) Skin: normal color, warm/dry Data Review Labs Laboratory Tests 01/12/23 08:41: Urine Color ORANGEH, Urine Clarity SLIGHTLY CLOUDY, Urine pH 5.5, Urine Specific [place] 1.015L, Urine Protein 1+H, Urine Glucose (UA) TRACEH, Urine Ketones NEGATIVE, Urine Nitrite POSITIVEH, Urine Bilirubin NEGATIVE, Urine Urobilinogen 0.2, Urine Leukocyte Esterase 1+H, Urine RBC (Auto) NEGATIVE, Urine RBC NONE, Urine WBC 50-100H, Urine Squamous Epithelial Cells NONE, Urine Crystals NONE, Urine Bacteria MODERATEH, Urine Casts NONE, Urine Mucus NEGATIVE, Urine Culture Indicated CULTURE PENDING 01/12/23 09:04: White Blood Count 8.9, Red Blood Count 3.79L, Hemoglobin 11.2L, Hematocrit 35, Mean Corpuscular Volume 92, Mean Corpuscular Hemoglobin 30, Mean Corpuscular Hemoglobin Concent 32, Red Cell Distribution Width 15.4H, Platelet Count 413H, Mean Platelet Volume 9.6, Immature Granulocyte % (Auto) 0, Neutrophils (%) (Auto) 83H, Lymphocytes (%) (Auto) 9L, Monocytes (%) (Auto) 7, Eosinophils (%) (Auto) 0, Basophils (%) (Auto) 0, Neutrophils # (Auto) 7.4, Lymphocytes # (Auto) 0.8L, Monocytes # (Auto) 0.6, Eosinophils # (Auto) 0.0, Basophils # (Auto) 0.0, Immature Granulocyte # (Auto) 0.0, Sodium Level 133L, Potassium Level 3.9, Chloride Level 98, Carbon Dioxide Level 23, Anion Gap 12, Blood Urea Nitrogen 20H, Creatinine 0.86, Estimat Glomerular Filtration Rate 65, BUN/Creatinine Ratio 23, Glucose Level 118H, Calcium Level 9.8, Corrected Calcium 10.0, Total Bilirubin 0.5, Aspartate Amino Transf (AST/SGOT) 24, Alanine Aminotransferase (ALT/SGPT) 12, Alkaline Phosphatase 40, Troponin I 0.095H, C-Reactive Protein High Sensitivity 1.51H, B-Type Natriuretic Peptide 385.1H, Total Protein 7.8, Albumin 3.7 01/12/23 09:22: Lactic Acid Level 1.02 01/12/23 09:52: Prothrombin Time 13.6, INR Comment 1.0, Activated Partial Thromboplast Time 28 01/12/23 12:27: Troponin I 0.099H Laboratory Tests 01/12/23 09:04 A/P-Cardiology Assessment/Admission Diagnosis Minimal troponin elevation: minimal type 2 OR due to [facility] and due to chronic diastolic CHF (currently clinically compensated) UTI and urinary retention: managed by ER physician Pankaj Coronary artery disease - with a history of stenting of the proximal left anterior descending artery with Promus 3 x 12-mm stent (taken to 3.4 mm diameter) on 12/11/2007. - Last cardiac catheterization was carried 12-16-2014 showed mild CAD. Patent stent in the prox LAD. Normal to hyperdynamic LV systolic function with an ejection fraction approx 70%. LVEDP at the top limit of normal. No evidence of any significant aortic, mitral or pulmonic stenosis. Mild to od pulmonary hypertension. PASP was measured at 42/16 mmHg with a mean of 26 mmHg. Normal p ulmonary wedge pressure. - Last MPI of 02/15/19: no ischemia or infarction, LVEF 81%, hyperdynamic LV - ECG normal on ER presentation of 01-12-23 History of moderate pulmonary hypertension and mild pulmonic valve stenosis. - Evaluation of pulmonary hypertension via right heart catheterization on . The patient had moderate pulmonary hypertension unrelated to left heart failure (normal pulmonary wedge pressure) and no response to a vasodilator challenge with adenosine. There was no evidence of any intra-cardiac shunt. Repeat RHC of 11/19/13 showed mean PA pressure of 32 mmHg and PCWP of 13 mmHg and 5 mmHg gradient on pull back across pulmonic valve Last echo of 01/18/19: LVEF 55-65%, grade 1 phillips dysfunction, mod LA dilatation, mod MAC and mild MR, RVSP 45 mmHg (stable / improved compared to previous evaluations) - Echocardiogram of 02/04/21 showed mildly increased wall thickness; LVEF 60-65%, mild enlargement of both atria, mild to mod calcified annulus with mild to mod regurg, mild to mod TR, PASP 55-60mmHg - Echocardiogram of 06-24-21 showed LVEF 65-70%. LA mildly dilated. Mild MR. PASP 55-60 mmHg - Echocardiogram of 06-07-22 showed mod to severe concentric hypertrophy. LVEF 65- 70%. Grade 2 diastolic dysfunction. LA mid mod to severely dilated. Mod to severe MR. AoV sclerosis. Mod TR. PASP 55-60 mmHg Chronic fatigue and poor stamina H/o hypertension, essential and white coat. - No evidence of any significant renal artery stenosis on angiography of 12/11/2007 or on u/s of Feb 2021 (oredered by Dr Massey) Carotid dz - mild bilat dz per u/s of 03-04-21 Sleep apnea syndrome - which is the probable reason for pulmonary hypertension. This has been treated C-PAP therapy and managed by her wound care center consultant History of anxiety. - managed by PCP Chronic mild anemia - being followed by Dr. Massey. History of hyperlipidemia - followed and treated by Dr Massey Ortho - Degenerative joint disease. - H/o spinal stenosis and chronic back pain - H/o non-syncopal fall with right leg fx in Jan 2022; subsequent repair at [facility] Multinodular goiter - for which she has followed with Dr. Massey H/o mild chronic diastolic CHF - currently clinically compensated H/o hyponatremia - likely due to chronic diuretic therapy Discussion and Recomendations * There is no clinical evidence of acute coronary syndrome * I have discussed this with Dr Subramanian. If there are no non-cardiac reasons to admit (as determined by the Dr Subramanian (ER) and Dr Clemens (Hospitalist), then it would be reasonable to d/c from cardiac standpoint if troponin is stable * We recommend continuation of previous cardiac regimen * I have discussed her CV issues with her and her family (two daughters). They wish to return to the [place] NOEMI GORDON MD FACP FAC CCDS Jan 12, 2023 13:27
[2023-01-12] MEDS: NS IV 500 ML 500 ML IV ONE (13:41)
[2023-01-12 14:40] VITALS: BP 136/76
== END 2023-01-12 14:44 | disposition home or self-care (01) ==
LOC: EDUNIT# 07:49 → ER 07:50
DX: N39.0 Urinary tract infection, site not specified (principal); R33.9 Retention of urine, unspecified; R79.89 Other specified abnormal findings of blood chemistry; Z90.49 Acquired absence of other specified parts of digestive tract
CPT/HCPCS: 36415; 51702; 71045; 73610; 74018; 80053; 81000; 83605; 83880; 84484; 85025; 85610; 85730; 86141; 87040; 87088; 93005

== ENCOUNTER → 2023-01-31 | Outpatient (RCR) | payer MEDICARE, OTHER ==
[~2023-01-31] VITALS: Wt 62.0 kg
[~2023-01-31] MED LIST changes: +ERTAPENEM 1 GM/NS 50 ML IVPB IV SCH
[2023-01-31 12:30] VITALS: BP 147/64
== END ==
LOC: SDC 12:21
PROVIDERS: ATTEND Internal Medicine
DX: A49.8 Other bacterial infections of unspecified site (principal)
CPT/HCPCS: 36410; 76937; 96365; C1751

== ENCOUNTER 2023-02-06 12:41 | Outpatient (RCR) | payer MEDICARE, OTHER ==
[2023-02-01] MEDS: ERTAPENEM 1 GM/NS 50 ML IVPB IV SCH ×2 (12:53)
[2023-02-01 13:08] VITALS: BP 96/62
[2023-02-02 13:00] VITALS: BP 133/62
[2023-02-02] MEDS: ERTAPENEM 1 GM/NS 50 ML IVPB IV SCH ×2 (13:06)
[2023-02-03] MEDS: ERTAPENEM 1 GM/NS 50 ML IVPB IV SCH ×2 (12:48)
[2023-02-03 12:57] VITALS: BP 120/60
[2023-02-04] MEDS: ERTAPENEM 1 GM/NS 50 ML IVPB IV SCH ×2 (09:09)
[2023-02-04 09:14] VITALS: BP 128/66
[2023-02-05] MEDS: ERTAPENEM 1 GM/NS 50 ML IVPB IV SCH ×2 (09:17)
[2023-02-05 09:50] VITALS: BP 127/67
[~2023-02-06] VITALS: Ht 152 cm; Wt 62.0 kg
[~2023-02-06 12:41] MED LIST changes: -ERTAPENEM 1 GM/NS 50 ML IVPB IV SCH; +MEROPENEM 1000 MG IV ONE; +NS (IVPB) 100 ML 100 ML ONE
[2023-02-06] MEDS: ERTAPENEM 1 GM/NS 50 ML IVPB IV SCH ×2 (12:57)
[2023-02-06 13:00] VITALS: BP 121/63
== END 2023-03-02 | disposition home or self-care (01) ==
LOC: SDC 12:41
PROVIDERS: ATTEND Internal Medicine
DX: Z09 Encounter for follow-up examination after completed treatment for conditions other than malignant neoplasm (principal); Z16.12 Extended spectrum beta lactamase (ESBL) resistance; B96.81 Helicobacter pylori [H. pylori] as the cause of diseases classified elsewhere
CPT/HCPCS: 96365